=== PATIENT | female | born 1965 | race Two or more races ===

== ENCOUNTER 2020-01-08 10:28 | Outpatient (REF) | payer OTHER, SELFPAY ==
--- NOTE | 2020-01-08 | MM_ITS ---
EXAMINATION: MM SCREENING DIGITAL BREAST TOMOSYNTHESIS, BILATERAL CLINICAL INFORMATION: Screening. Asymptomatic. The lifetime risk of breast cancer based on the Tyrer-Cuzick Model is 15.9%. COMPARISON: Mammography: June 08, 2018 and studies dating back to July 29, 2011 TECHNIQUE: Digital breast tomosynthesis is performed in both the craniocaudal and mediolateral oblique views along with computer-aided detection (CAD). Synthesized 2D images are generated from the tomosynthesis. FINDINGS: There are scattered areas of fibroglandular density (ACR BI-RADS breast composition Category b). There are no significant masses, abnormal calcifications, or other abnormalities. MM/MM tomosynthesis screening BI IMPRESSION: There are no significant changes from prior study. ASSESSMENT: BI-RADS 1: Negative RECOMMENDATION: Routine annual mammography screening. This patient's information was entered into a reminder system with a target due date for their next mammogram.
== END 2020-01-08 10:29 | disposition home or self-care (01) ==
LOC: HO.MAMMO 10:28
PROVIDERS: Visit Provider Advanced Practice Midwife
DX: Z12.31 Encounter for screening mammogram for malignant neoplasm of breast (principal)
CPT/HCPCS: 77063; 77067

== ENCOUNTER 2020-02-14 10:03 | Outpatient (REF) | payer OTHER, SELFPAY ==
--- NOTE | 2020-02-14 10:11 | US_ITS ---
EXAMINATION: US VENOUS ULTRASOUND WITH DOPPLER LOWER EXTREMITY, LEFT CLINICAL INFORMATION: Left leg pain. COMPARISON: 08/09/2019 TECHNIQUE: Ultrasound of the deep veins is performed from the left hip to the calf with compression sonography and color and pulse Doppler assessment. Spectral analysis with color-flow imaging is performed. FINDINGS: There is normal venous compression and respiratory variation and augmented flow. The visualized common femoral vein, superficial femoral vein, profunda femoral vein, popliteal vein, and the trifurcation region shows no evidence of deep venous thrombosis. Within the leg, the visualized posterior tibial and peroneal veins are normal. A 5.1 x 1.8 x 3.1 cm Hollis's cyst has slightly increased in size compared to 08/09/2019. US/US venous duplex LE IMPRESSION: * No evidence of deep vein thrombosis in the left lower extremity. * Within the popliteal fossa, a Hollis's cyst has increased in size compared to 08/09/2019.
--- NOTE | 2020-02-14 10:11 | XR_ITS ---
EXAMINATION: XR KNEE, LEFT CLINICAL INFORMATION: Left knee pain COMPARISON: None TECHNIQUE: AP and lateral views of the left knee. FINDINGS: Alignment is normal and joint spaces are maintained. No fracture or subluxation. There appears to be a trace amount of fluid in the suprapatellar bursa of the knee joint. There is no evidence of a large joint effusion. Small osteophytes of the patella. No chondrocalcinosis or other soft tissue calcification at the knee. XR/XR knee LT 2V IMPRESSION: * No fracture or malalignment at the left knee. * Mild osteoarthritis of the patellofemoral joint.
== END 2020-02-14 10:04 | disposition home or self-care (01) ==
LOC: HO.XRAY 10:03
PROVIDERS: PCP Internal Medicine; Visit Provider Internal Medicine
DX: M25.562 Pain in left knee (principal); M79.605 Pain in left leg
CPT/HCPCS: 73560; 93971

== ENCOUNTER 2020-02-18 08:44 | Outpatient (REF) | payer OTHER, SELFPAY | END 2020-02-18 08:45 | disposition home or self-care (01) | LOC: HO.US 08:44 | PROVIDERS: PCP Internal Medicine; Visit Provider Internal Medicine | DX: M79.605 Pain in left leg (principal) ==

== ENCOUNTER → 2020-03-03 12:51 | Outpatient (BNVA) | payer OTHER, SELFPAY | PROVIDERS: PCP Internal Medicine; Visit Provider Orthopaedic Surgery | DX: M25.562 Pain in left knee (principal) | CPT/HCPCS: 20610; 99202; J1100 ==

== ENCOUNTER 2020-03-10 10:33 | Outpatient (REF) | payer OTHER, SELFPAY | END 2020-03-10 10:34 | disposition home or self-care (01) | LOC: HO.LAB 10:33 | PROVIDERS: PCP Internal Medicine; Visit Provider Internal Medicine | DX: Z20.822 Contact with and (suspected) exposure to COVID-19 (principal) | CPT/HCPCS: 36415; C9803; U0003 ==

== ENCOUNTER → 2020-03-25 10:05 | Outpatient (BNVA) | payer OTHER, SELFPAY | PROVIDERS: PCP Internal Medicine; Visit Provider Internal Medicine Cardiovascular Disease | DX: I47.1 Supraventricular tachycardia (principal); I10 Essential (primary) hypertension | CPT/HCPCS: 93005; 99212 ==

== ENCOUNTER → 2020-03-28 09:58 | Outpatient (BNVA) | payer OTHER, SELFPAY | PROVIDERS: Visit Provider Internal Medicine Gastroenterology | DX: K21.9 Gastro-esophageal reflux disease without esophagitis (principal) | CPT/HCPCS: Q3014 ==

== ENCOUNTER 2020-03-29 09:58 | Outpatient (REF) | payer OTHER, SELFPAY | END 2020-03-29 09:59 | disposition home or self-care (01) | LOC: HO.LAB 09:58 | PROVIDERS: PCP Internal Medicine; Visit Provider Internal Medicine | DX: Z20.822 Contact with and (suspected) exposure to COVID-19 (principal) | CPT/HCPCS: 36415; C9803; U0003 ==

== ENCOUNTER 2020-04-19 13:56 | Emergency (ER) | payer OTHER, SELFPAY ==
--- NOTE | 2020-04-19 | ECG_ITS ---
Test Reason : DIZZINESS Blood Pressure : / mmHG Vent. Rate : 089 BPM Atrial Rate : 089 BPM P-R Int : 144 ms QRS Dur : 090 ms QT Int : 382 ms P-R-T Axes : 068 010 022 degrees QTc Int : 464 ms Normal sinus rhythm Normal ECG When compared with ECG of 15-MAR-2019 08:25, No significant change was found Referred By: Generic ED Physician Electronically Signed By:JUN OCHOA MD
--- NOTE | ~2020-04-19 | CT_ITS ---
EXAMINATION: CT HEAD WITHOUT CONTRAST CLINICAL INFORMATION: Headaches, dizziness, severe hypertension COMPARISON: CT head from 03/15/2019 TECHNIQUE: Contiguous axial imaging was performed from the skull base to vertex without intravenous administration of contrast. This CT examination was performed using dose optimization techniques as appropriate, variously including the following: *Automated exposure control *Adjustment of mA and/or kV according to patient size (this includes techniques or standardized protocols for targeted exams where dose is matched to indication/reason for exam; i.e. extremities or head) *Use of iterative reconstruction technique DLP: 716.26 mGy-cm FINDINGS: There is no evidence of acute intracranial hemorrhage or territorial infarction. No abnormal mass effect or midline shift is seen. Godinez to white matter differentiation is well preserved. No extra-axial fluid collections are identified. The ventricles are normal in size. There is no abnormal attenuation within the brain parenchyma. The osseous structures and soft tissues are normal. Mild mucoperiosteal thickening of the right maxillary sinus. The mastoid air cells and visualized portions of the paranasal sinuses are well aerated. CT/CT cervical spine wo con IMPRESSION: No acute intracranial pathology. EXAMINATION: Noncontrast CT scan of the cervical spine. INDICATION: Neck pain COMPARISON: None. TECHNIQUE: Helical, multidetector axial images were obtained from the occiput to the upper thorax. Coronal and sagittal reformats of the cervical spine were provided for interpretation. DLP: 438.66 mGy-cm FINDINGS: No acute fractures or dislocations of the cervical spine are seen. Straightening of the normal cervical curvature which may be secondary to patient positioning versus muscle spasm. Mild multilevel degenerative changes with disc space narrowing, osteophyte formation, and facet arthropathy. Anatomic alignment and positioning of the vertebral bodies and posterior elements is noted. The atlantoaxial joint and craniovertebral articulations are normal without evidence of subluxation. There is no prevertebral soft tissue swelling. The thyroid gland and visualized portions of the lung apices and mediastinum are unremarkable. IMPRESSION: 1. No acute visible fracture or dislocation. 2. Straightening of the normal cervical curvature which may be secondary to patient positioning versus muscle spasm. 3. Mild multilevel degenerative changes.
[2020-04-19 14:42] VITALS: BP 189/109; PULSE 94; RESP 18; TEMP 36.7; O2SAT 99; BMI 36.9
[2020-04-19 15:59] VITALS: BP 169/85
[2020-04-19 16:02] LABS: MANUAL DIFF FLAG NO
[2020-04-19 16:05] LABS: Basophils Percent Auto 0.4 % (0-2); Eosinophils Absolute Auto 0.1 X10*3/uL (0.0-0.4); Eosinophils Percent Auto 1.6 % (0-4); Hematocrit 41.4 % (37-47); Hemoglobin 13.9 g/dl (12.0-16.0); Imm Gran Abs Auto 0.03 X10*3/uL (0.00-0.03); Imm Gran Pct Auto 0.4 % (0.0-0.4); Lymphocytes Absolute Auto 2.9 X10*3/uL (1.2-4.9); Lymphocytes Percent Auto 37.5 % (20-40); Mean Corpuscular HGB Conc 33.6 g/dl (31.0-35.0); Mean Corpuscular Hemoglobin 29.7 pg (27.0-33.0); Mean Corpuscular Volume 88.5 fL (80-98); Mean Platelet Volume 9.1 fL (9.4-12.3); Monocytes Absolute Auto 0.6 X10*3/uL (0.1-1.2); Monocytes Percent Auto 7.4 % (2-11); Neutrophils Percent Auto 52.7 % (45-73); Platelet Count 224 X10*3/uL (160-400); Red Blood Count 4.68 X10*6/uL (4.20-5.50); Red Cell Distribution Width 13.7 % (11.0-16.0); White Blood Count 7.7 X10*3/uL (4.8-10.8)
--- NOTE | 2020-04-19 16:17 | ED_ITS ---
HPI - General Adult General Chief complaint: Dizziness Stated complaint: HBP,Dizziness Time Seen by Provider: 04/19/20 15:44 Source: patient Mode of arrival: ambulatory Limitations: no limitations History of Present Illness HPI narrative: 54 y/o female with history of HTN on Toprol XL 50 mg daily, depression/anxiety, GERD, insomnia, hx SVT who presents to the ED with dizziness, nausea and right sided occipital pain that started this morning when she woke up. She noticed her BP has been elevated the last few days. It has been reading error in the morning and then 150/110's in the afternoon the last few days. She denies chest pain, vision changes, or diffuse headache. She states the pain in the back of her head/neck has been on/off for years and she correlates it when she has high BP. She thinks it is a swollen vein. MD complaint: high blood pressure Onset (ago): day(s) (2) Location: head and neck Radiation: non-radiation Severity: moderate Severity scale (1-10): 5 Quality: aching Pain Consistency: constant Relieving factors: rest Exacerbating factors: other (palpation) Associated symptoms: nausea/vomiting and other (dizziness) Treatments prior to arrival: none Related Data Home Medications Medication Instructions Recorded Confirmed cephalexin 500 mg capsule 500 mg PO Q6H 02/13/20 03/25/20 lidocaine 5 % topical ointment TOPICAL 02/13/20 03/25/20 lorazepam 1 mg tablet 1 mg PO QID PRN 02/13/20 03/25/20 meclizine 25 mg tablet mg PO 02/13/20 03/25/20 mometasone 0.1 % topical ointment TOPICAL 02/13/20 03/25/20 ondansetron HCl 8 mg tablet 8 mg PO BID 02/13/20 03/25/20 paroxetine HCl 20 mg tablet 20 mg PO DAILY 02/13/20 03/25/20 paroxetine HCl 40 mg tablet 40 mg PO DAILY 02/13/20 03/25/20 peg-electrolyte solution 420 gram ml PO 02/13/20 03/25/20 oral solution sucralfate 1 gram tablet 0 g PO 02/13/20 03/25/20 topiramate 100 mg tablet 100 mg PO DAILY 02/13/20 03/25/20 valacyclovir 500 mg tablet 500 mg PO BID 02/13/20 03/25/20 zolpidem 10 mg tablet 10 mg PO BEDTIME PRN 02/13/20 03/25/20 pantoprazole 40 mg tablet,delayed 40 mg PO DAILY 03/28/20 release Previous Rx's Medication Instructions Recorded metoprolol succinate 100 mg 100 mg PO DAILY #90 tab 03/21/20 tablet,extended release 24 hr cyclobenzaprine 10 mg PO TID PRN #10 tab 04/19/20 lidocaine [Lidoderm] 1 patch TOPICAL DAILY #15 ea 04/19/20 Allergies Allergy/AdvReac Type Severity Reaction Status Date / Time bee pollen [BEE STINGS] Allergy Intermediate RASH Verified 04/19/20 14:50 SWELLING PAIN FULL. adhesive tape [ADHESIVE TAPE] Allergy Mild RASH Verified 04/19/20 14:50 phentermine Allergy Unknown ANXIETY Verified 04/19/20 14:50 pneumococcal vaccine Allergy Unknown Unknown Verified 04/19/20 14:50 tramadol Allergy Unknown stomach Verified 04/19/20 14:50 upset oxycodone [OXYCODONE] AdvReac Intermediate VOMITING Verified 04/19/20 14:50 Review of Systems Review of Systems: Constitutional: No Fever, No Chills ENT/Mouth: No sore throat, No Rhinorrhea, No Swallowing Difficulty Eyes: No Eye Pain, No Swelling, No Redness, No vision changes Cardiovascular: No Chest Pain, No SOB, No Orthopnea, No Edema Respiratory: No Cough, No Sputum, No Wheezing, No dyspnea Gastrointestinal: + Nausea, No Vomiting, No Diarrhea, No abdominal Pain Genitourinary: No Dysuria, No Urinary Frequency, No Hematuria Musculoskeletal: No joint pain, + Myalgias Skin: No Skin Lesions, No rash Neuro: No Weakness, No Numbness, No Dizziness, + Headache Psych: + Anxiety/Panic, No Depression Heme/Lymph: No Bruising, No Lymphadenopathy Endocrine: No Polyuria, No Polydipsia PMFSH Past Medical History Attestation statement: The following information was validated with the patient. Medical History Depression with anxiety GERD (gastroesophageal reflux disease) HTN (hypertension) Insomnia Left knee pain Left leg pain Nausea Supraventricular tachycardia Surgical History History of cardiac radiofrequency ablation History of removal of cyst History of surgery History of total abdominal hysterectomy Family History Family History Father Brain cancer Mother Esophageal cancer Sister Breast cancer Paternal Uncle Diabetes Hypertension Social History Social History Alcohol intake: never Smoking Status: Never smoker Smoked in Last 30 Days: No Use of substances other than those prescribed or required for medical reasons: No Advance Directives: No Advance Directives Information Provided: Yes Physical Exam Vital Signs: Vital Signs: Last Vital Signs Temp 98.5 F 04/19/20 16:43 Pulse 79 04/19/20 16:43 Resp 18 04/19/20 16:43 BP 125/82 04/19/20 17:03 Pulse Ox 100 04/19/20 16:43 Body Mass Index 36.9 Appearance: Alert. Oriented X3. No acute distress. Eyes: Pupils equal, round and reactive to light. EOMI, no nystagmus ENT: Pharynx normal. Neck: Normal inspection. Neck supple. right posterior auricular area with tenderness and slight swelling along hair line, no skin changes, no palpable mas s CVS: Normal heart rate and rhythm. Pulses normal. Respiratory: No respiratory distress. Breath sounds normal. Abdomen: Soft and nontender. +BS x4 Skin: Skin warm and dry. Normal skin color. Normal skin turgor. No rashes. Extremities: No lower extremity edema. Neuro: Oriented X 3. No motor deficit. No sensory deficit. Course Course Course Narrative: 54 y/o female presenting with posterior headache, dizziness and nausea with poorly controlled BP. BP on arrival 189/198 with HR 94 --> re peat improved to 169/85 without intervention. Will hold off on additional antihypertensive meds at this time. Will proceed with CT head given her symptoms, suspicion for ICH/SAH is very low. Her neuro exam is non-focal. Reevaluation(s) Reevaluation #1: BP further improved to 125/[address] scan head normal. Neck showing ?muscle spasm which can explain her right sided neck/head pain. Troponin is negative. Reevaluation #2: Patient's BP is significantly improved without intervention. She feels much better without intervention. No dizziness. Will refer to Dr. Kim for possible med titration, she will monitor BP at home and bring him the results. Stable for discharge. Medical Decision Making Lab Data Result diagrams: 04/19/20 15:58 04/19/20 15:58 Labs: Lab Results 04/19/20 04/19/20 04/19/20 Range/Units 15:58 15:58 15:58 WBC 7.7 (4.8-10.8) X10*3/uL RBC 4.68 (4.20-5.50) X10*6/uL Hgb 13.9 (12.0-16.0) g/dl Hct 41.4 (37-47) % MCV 88.5 (80-98) fL MCH 29.7 (27.0-33.0) pg MCHC 33.6 (31.0-35.0) g/dl RDW 13.7 (11.0-16.0) % Plt Count 224 (160-400) X10*3/uL MPV 9.1 L (9.4-12.3) fL Immature Gran % (Auto) 0.4 (0.0-0.4) % Neut % (Auto) 52.7 (45-73) % Lymph % (Auto) 37.5 (20-40) % [place] % (Auto) 7.4 (2-11) % Eos % (Auto) 1.6 (0-4) % Baso % (Auto) 0.4 (0-2) % Lymph # (Auto) 2.9 (1.2-4.9) X10*3/uL [place] # (Auto) 0.6 (0.1-1.2) X10*3/uL Eos # (Auto) 0.1 (0.0-0.4) X10*3/uL Baso # (Auto) 0.0 (0.0-0.2) X10*3/uL Abs Immat Gran (auto) 0.03 (0.00-0.03) X10*3/uL Absolute Neuts (auto) 4.0 (2.0-8.3) X10*3/uL Absolute Nucleated RBC 0.000 (0.0-0.012) X10*3/uL Nucleated RBC % (auto) 0.0 (0.0-0.2) /100WBC Hold Blue Top SEE NOTE Sodium 140 (135-145) mmol/L Potassium 4.6 (3.3-5.1) mmol/L Chloride 103 (96-108) mmol/L Carbon Dioxide 27 (22-29) mmol/L Anion Gap 15 (12-20) BUN 14 (9-16) mg/dL Creatinine 0.80 (0.5-1.4) mg/dL Estim Creat Clear Calc 102.3 Estimated GFR > 60 Random Glucose 190 H (60-115) mg/dL Calcium 9.8 (8.4-10.2) mg/dL Troponin I High Sens (<3.5-17.0) ng/L 04/19/20 Range/Units 15:58 WBC (4.8-10.8) X10*3/uL RBC (4.20-5.50) X10*6/uL Hgb (12.0-16.0) g/dl Hct (37-47) % MCV (80-98) fL MCH (27.0-33.0) pg MCHC (31.0-35.0) g/dl RDW (11.0-16.0) % Plt Count (160-400) X10*3/uL MPV (9.4-12.3) fL Immature Gran % (Auto) (0.0-0.4) % Neut % (Auto) (45-73) % Lymph % (Auto) (20-40) % [place] % (Auto) (2-11) % Eos % (Auto) (0-4) % Baso % (Auto) (0-2) % Lymph # (Auto) (1.2-4.9) X10*3/uL [place] # (Auto) (0.1-1.2) X10*3/uL Eos # (Auto) (0.0-0.4) X10*3/uL Baso # (Auto) (0.0-0.2) X10*3/uL Abs Immat Gran (auto) (0.00-0.03) X10*3/uL Absolute Neuts (auto) (2.0-8.3) X10*3/uL Absolute Nucleated RBC (0.0-0.012) X10*3/uL Nucleated RBC % (auto) (0.0-0.2) /100WBC Hold Blue Top Sodium (135-145) mmol/L Potassium (3.3-5.1) mmol/L Chloride (96-108) mmol/L Carbon Dioxide (22-29) mmol/L Anion Gap (12-20) BUN (9-16) mg/dL Creatinine (0.5-1.4) mg/dL Estim Creat Clear Calc Estimated GFR Random Glucose (60-115) mg/dL Calcium (8.4-10.2) mg/dL Troponin I High Sens < 3.5 (<3.5-17.0) ng/L ECG Data Attestation: I personally reviewed and interpreted this ECG as follows: Interpretation: normal sinus rhythm, HR 89 bpm, [place] interval normal, normal QTc, No ST segment elevations Critical Care Time Critical Care Time Critical Care Time: No Discharge Plan Discharge Clinical Impression: HTN (hypertension) Qualifiers: Hypertension type: unspecified Qualified Code(s): I10 - Essential (primary) hypertension Cervical muscle strain Qualifiers: Encounter type: initial encounter Qualified Code(s): S16.1XXA - Strain of muscle, fascia and tendon at neck level, initial encounter Patient Disposition: Home, Self-Care Instructions: Cervical Strain (ED), Hypertension (ED) Additional Instructions: Your lab workup today was unremarkable. Your BP improved on it's own. Recommend monitoring your blood pressure at home every afternoon and keeping track for your doctor. Follow up with the Cardiology doctor in 2 weeks. Use heat to the painful area on your neck/head. Follow up with your doctor this week. If you have worsening headache, recurrent dizziness or any other concerning symptom come back to the ER for further evaluation. Prescriptions: New cyclobenzaprine 10 mg tablet 10 mg PO TID PRN (Reason: muscle spasm) Qty: 10 RF: 0 lidocaine [Lidoderm] 5 % adhesive patch,medicated 1 patch topical DAILY Qty: 15 RF: 0 No Action metoprolol succinate 100 mg tablet extended release 24 hr 100 mg PO DAILY Qty: 90 RF: 3 paroxetine HCl 40 mg tablet 40 mg PO DAILY RF: 0 paroxetine HCl 20 mg tablet 20 mg PO DAILY RF: 0 lorazepam 1 mg tablet 1 mg PO QID PRNRF: 0 lidocaine 5 % ointment topical RF: 0 zolpidem 10 mg tablet 10 mg PO BEDTIME PRNRF: 0 mometasone 0.1 % ointment topical RF: 0 valacyclovir 500 mg tablet 500 mg PO BID RF: 0 ondansetron HCl 8 mg tablet 8 mg PO BID RF: 0 cephalexin 500 mg capsule 500 mg PO Q6H RF: 0 topiramate 100 mg tablet 100 mg PO DAILY RF: 0 sucralfate 1 gram tablet 0 g PO RF: 0 peg-electrolyte soln 420 gram recon soln PO RF: 0 meclizine 25 mg tablet PO RF: 0 Referrals: Prasad Kim MD [Physician] - 2 weeks
[2020-04-19 16:32] LABS: Troponin-I High Sensitivity < 3.5 ng/L (<3.5-17.0)
[2020-04-19 16:43] VITALS: BP 125/82; PULSE 79; RESP 18; TEMP 36.9; O2SAT 100
[2020-04-19 17:01] LABS: Anion Gap 15 (12-20); Blood Urea Nitrogen 14 mg/dL (9-16); Calcium 9.8 mg/dL (8.4-10.2); Carbon Dioxide 27 mmol/L (22-29); Chloride 103 mmol/L (96-108); Creatinine Clr Calc Pharmacy 102.3; Estimated Glomerular Filt Rate > 60; Glucose Random 190 mg/dL (60-115); Potassium 4.6 mmol/L (3.3-5.1); Sodium 140 mmol/L (135-145)
[2020-04-19 17:03] VITALS: BP 125/82
== END 2020-04-19 17:49 | disposition home or self-care (01) ==
PROVIDERS: Emergency Provider Emergency Medicine Emergency Medical Services; PCP Internal Medicine
DX: I10 Essential (primary) hypertension (principal); S16.1XXA Strain of muscle, fascia and tendon at neck level, initial encounter; X58.XXXA Exposure to other specified factors, initial encounter; Y93.9 Activity, unspecified; Y92.9 Unspecified place or not applicable; Y99.9 Unspecified external cause status
CPT/HCPCS: 36415; 70450; 72125; 80048; 84484; 85025; 93005; 96374; 99284

== ENCOUNTER 2020-05-14 11:36 | Outpatient (REF) | payer OTHER, SELFPAY ==
[2020-05-14 12:52] LABS: Glucose Urine UA NEG (NEG); Leukocyte Esterase Urine NEG (NEG); Nitrite Urine NEG (NEG); Specific Gravity - Urine >= 1.030 (1.005-1.025); Urine Blood NEG (NEG); Urine Ketones NEG (NEG); Urine Protein NEG (NEG-TRACE)
[2020-05-14 12:55] LABS: Appearance Urine CLEAR; Color Urine YELLOW
== END 2020-05-14 11:37 | disposition home or self-care (01) ==
LOC: HO.LAB 11:36
PROVIDERS: PCP Internal Medicine; Visit Provider Internal Medicine
DX: R30.0 Dysuria (principal)
CPT/HCPCS: 81003

== ENCOUNTER 2020-07-03 10:37 | Outpatient (REF) | payer OTHER, SELFPAY ==
[2020-07-03 11:42] LABS: Basophils Percent Auto 0.5 % (0-2); Eosinophils Absolute Auto 0.2 X10*3/uL (0.0-0.4); Eosinophils Percent Auto 3.1 % (0-4); Hemoglobin 15.2 g/dl (12.0-16.0); Imm Gran Abs Auto 0.03 X10*3/uL (0.00-0.03); Imm Gran Pct Auto 0.4 % (0.0-0.4); Lymphocytes Absolute Auto 2.7 X10*3/uL (1.2-4.9); Lymphocytes Percent Auto 36.7 % (20-40); MANUAL DIFF FLAG NO; Mean Corpuscular Hemoglobin 29.6 pg (27.0-33.0); Mean Corpuscular Volume 89.7 fL (80-98); Mean Platelet Volume 9.1 fL (9.4-12.3); Monocytes Absolute Auto 0.5 X10*3/uL (0.1-1.2); Monocytes Percent Auto 6.3 % (2-11); Platelet Count 282 X10*3/uL (160-400); Red Blood Count 5.13 X10*6/uL (4.20-5.50); Red Cell Distribution Width 12.9 % (11.0-16.0); White Blood Count 7.5 X10*3/uL (4.8-10.8)
[2020-07-03 12:48] LABS: Alanine Aminotransferase 35 U/L (0-31); Albumin Level 4.8 g/dL (3.5-5.0); Alkaline Phosphatase 99 U/L (39-117); Anion Gap 15 (12-20); Aspartate Amino Transferase 25 U/L (5-31); Blood Urea Nitrogen 11 mg/dL (9-16); Calcium 10.2 mg/dL (8.4-10.2); Carbon Dioxide 25 mmol/L (22-29); Chloride 106 mmol/L (96-108); Cholesterol 254 mg/dL; Estimated Glomerular Filt Rate > 60; Glucose Fasting 157 mg/dL (60-99); HDL Cholesterol 48 mg/dL; LDL Cholesterol Calculated 152 mg/dl; Potassium 4.2 mmol/L (3.3-5.1); Sodium 142 mmol/L (135-145); Total Protein 7.3 g/dL (6.5-8.0); Triglycerides 274 mg/dL
[2020-07-03 15:54] LABS: Appearance Urine CLEAR; Color Urine YELLOW; Glucose Urine UA NEG (NEG); Leukocyte Esterase Urine NEG (NEG); Nitrite Urine NEG (NEG); Specific Gravity - Urine 1.025 (1.005-1.025); Urine Blood NEG (NEG); Urine Ketones NEG (NEG); Urine Protein NEG (NEG-TRACE)
== END 2020-07-03 10:38 | disposition home or self-care (01) ==
LOC: HO.LAB 10:37
PROVIDERS: PCP Internal Medicine; Visit Provider Internal Medicine
DX: R30.0 Dysuria (principal); E78.5 Hyperlipidemia, unspecified; I10 Essential (primary) hypertension; K21.9 Gastro-esophageal reflux disease without esophagitis
CPT/HCPCS: 36415; 80053; 80061; 81003; 85025

== ENCOUNTER 2020-08-05 18:24 | Emergency (ER) | payer OTHER, SELFPAY ==
[2020-08-05] VITALS (7 sets, daily range): BP systolic 145–192; BP diastolic 80–118; PULSE 81–91; RESP 14–18; TEMP 36.5–36.9; O2SAT 97–100; BMI 36.8
--- NOTE | 2020-08-05 | ECG_ITS ---
Test Reason : PALPATIONS Blood Pressure : / mmHG Vent. Rate : 090 BPM Atrial Rate : 090 BPM P-R Int : 148 ms QRS Dur : 104 ms QT Int : 408 ms P-R-T Axes : 068 019 036 degrees QTc Int : 499 ms Normal sinus rhythm normal ECG When compared with ECG of 19-APR-2020 16:36, No significant change was found Referred By: Generic ED Physician Electronically Signed By:Kota Reyes
--- NOTE | ~2020-08-05 | CT_ITS ---
EXAMINATION: CT HEAD WITHOUT CONTRAST CLINICAL INFORMATION: Headache. Hypertensive. COMPARISON: CT head 04/19/2020 TECHNIQUE: Contiguous axial imaging was performed from the skull base to vertex without intravenous administration of contrast. Coronal and sagittal reformatted images are performed at the CT scanner. [This CT examination was performed using dose optimization techniques as appropriate, variously including the following: *Automated exposure control *Adjustment of mA and/or kV according to patient size (this includes techniques or standardized protocols for targeted exams where dose is matched to indication/reason for exam; i.e. extremities or head) *Use of iterative reconstruction technique] DLP: 752.09+5.12 mGy-cm. FINDINGS: There is no evidence of acute intracranial hemorrhage or territorial infarction. No abnormal mass-effect or midline shift is seen. Godinez to white matter differentiation is well preserved. No extra-axial fluid collections are identified. The ventricles are normal in size. There is no abnormal attenuation within the brain parenchyma. There is no osseous abnormality. The mastoid air cells and visualized portions of the paranasal sinuses are well-aerated. CT/CT head/brain wo con IMPRESSION: No acute intracranial pathology.
--- NOTE | ~2020-08-05 | CT_ITS ---
EXAMINATION: CT ANGIOGRAM OF THE CHEST WITH AND WITHOUT CONTRAST (CT PULMONARY ANGIOGRAM FOR PE) CLINICAL INFORMATION: Reason for Exam hypertensive, pleuretic left chest pain, PE/dissection? COMPARISON: Chest x-ray 03/15/2019 TECHNIQUE: Prior to contrast administration, noncontrast localization images were obtained. Subsequently, multidetector volumetric imaging was performed from the thoracic inlet to below the diaphragms following the administration of 80 mL Omnipaque 350 intravenous contrast. No contrast reaction reported Sagittal, coronal, and MIP oblique sagittal reformatted images were obtained on the CT workstation, uploaded to PACS, and reviewed. This CT examination was performed using dose optimization techniques as appropriate, variously including the following: *Automated exposure control *Adjustment of mA and/or kV according to patient size (this includes techniques or standardized protocols for targeted exams where dose is matched to indication/reason for exam; i.e. extremities or head) *Use of iterative reconstruction technique Total exam dose-length product 1939 mGy-cm FINDINGS: QUALITY OF STUDY/CONTRAST BOLUS: Satisfactory. PULMONARY ARTERIES: No central or segmental pulmonary emboli. THORACIC AORTA: No aneurysm or dissection. LUNG: No focal consolidation, nodules or masses. PLEURA: No pleural effusion or pneumothorax. MEDIASTINUM: Normal heart size. No pericardial effusion. No hilar or mediastinal lymphadenopathy. No evidence of septal bowing or right heart strain. CHEST WALL/AXILLA: No axillary or internal mammary lymphadenopathy. OSSEOUS STRUCTURES: No acute or suspicious osseous abnormality. UPPER ABDOMEN: Unremarkable. No reflux of contrast into the hepatic veins to suggest elevated right heart pressures. CT/CT angio chest PE protocol IMPRESSION: Normal CT chest. No evidence of pulmonary embolism. VTE: negative
--- NOTE | ~2020-08-05 | CT_ITS ---
EXAMINATION: CT ABDOMEN AND PELVIS WITH CONTRAST CLINICAL INFORMATION: Left upper quadrant abdominal pain COMPARISON: 03/03/2016 TECHNIQUE: Multidetector volumetric imaging was performed from the superior aspect of the liver through the pubic symphysis following administration of 85 cc of Omnipaque intravenous contrast Sagittal and coronal reformatted images were obtained on the technologist workstation.. This CT examination was performed using dose optimization techniques as appropriate, variously including the following: *Automated exposure control *Adjustment of mA and/or kV according to patient size (this includes techniques or standardized protocols for targeted exams where dose is matched to indication/reason for exam; i.e. extremities or head) *Use of iterative reconstruction technique DLP: 336 mGy-cm FINDINGS: LUNG BASES: The visualized lung bases are unremarkable. LIVER, GALLBLADDER, AND BILIARY TREE: Mild diffuse fatty infiltration of the liver but no suspicious hepatic lesion or biliary ductal dilatation The gallbladder is unremarkable with no evidence of radiopaque gallstones, gallbladder wall thickening, or obvious pericholecystic inflammatory changes. PANCREAS: Atrophic but no focal abnormalities seen. SPLEEN: Unremarkable. ADRENAL GLANDS: Unremarkable. KIDNEYS AND URETERS: Low-attenuation cortical cysts incidentally seen within the bilateral kidneys similar to the prior study. Otherwise the kidneys are normal in size, shape, and attenuation. No hydronephrosis, hydroureter, or calculi seen. No perinephric stranding. BLADDER: Unremarkable. GASTROINTESTINAL TRACT: A few scattered colonic diverticula are seen but there is no evidence for diverticulitis. No colonic wall thickening or pericolonic inflammatory changes. Normal-appearing appendix. Visualized small bowel unremarkable ABDOMINAL WALL: No significant hernia is appreciated. LYMPHOVASCULAR STRUCTURES: No lymphadenopathy. The aorta is unremarkable. PELVIC VISCERA: Presumably surgically absent OSSEOUS STRUCTURES: Unremarkable. CT/CT abdomen pelvis w con IMPRESSION: Chronic appearing changes similar to the 2016 study. I do not appreciate any acute intra-abdominal process
[2020-08-05 19:11] LABS: MANUAL DIFF FLAG NO
[2020-08-05 19:14] LABS: Basophils Percent Auto 0.4 % (0-2); Eosinophils Absolute Auto 0.1 X10*3/uL (0.0-0.4); Eosinophils Percent Auto 1.1 % (0-4); Hematocrit 44.2 % (37-47); Hemoglobin 14.9 g/dl (12.0-16.0); Imm Gran Abs Auto 0.05 X10*3/uL (0.00-0.03); Imm Gran Pct Auto 0.5 % (0.0-0.4); Lymphocytes Absolute Auto 3.5 X10*3/uL (1.2-4.9); Lymphocytes Percent Auto 33.9 % (20-40); Mean Corpuscular HGB Conc 33.7 g/dl (31.0-35.0); Mean Corpuscular Hemoglobin 30.3 pg (27.0-33.0); Mean Corpuscular Volume 89.8 fL (80-98); Mean Platelet Volume 8.6 fL (9.4-12.3); Monocytes Absolute Auto 0.7 X10*3/uL (0.1-1.2); Monocytes Percent Auto 6.5 % (2-11); Neutrophils Absolute Auto 5.9 X10*3/uL (2.0-8.3); Neutrophils Percent Auto 57.6 % (45-73); Platelet Count 258 X10*3/uL (160-400); Red Blood Count 4.92 X10*6/uL (4.20-5.50); Red Cell Distribution Width 13.2 % (11.0-16.0); White Blood Count 10.2 X10*3/uL (4.8-10.8)
[2020-08-05 19:35] LABS: Anion Gap 18 (12-20); Blood Urea Nitrogen 9 mg/dL (9-16); Calcium 9.5 mg/dL (8.4-10.2); Carbon Dioxide 22 mmol/L (22-29); Chloride 103 mmol/L (96-108); Creatinine Clr Calc Pharmacy 103.5; Estimated Glomerular Filt Rate > 60; Glucose Random 221 mg/dL (60-115); Potassium 3.8 mmol/L (3.3-5.1); Sodium 139 mmol/L (135-145)
[2020-08-05 19:53] LABS: Troponin-I High Sensitivity < 3.5 ng/L (<3.5-17.0)
--- NOTE | 2020-08-05 20:09 | PC.NURSE ---
PT RESTING IN STRETCHER WITH C/O LEFT SIDED HEADACHE, ICE PACK PROVIDED. PT ON MONITOR WITH VS OBTAINED. PT DENIES N/V OR CHEST PAIN AT THIS TIME. PT ADMITS TO PHOTOSENSITIVITY. RESPIRATIONS EASY, N/L. PT AWAITING FOR MD'S EVAL. WILL CONTINUE TO MONITOR PT.
--- NOTE | 2020-08-05 20:40 | ED_ITS ---
HPI - General Adult General Chief complaint: General Medical Stated complaint: high bp Time Seen by Provider: 08/05/20 20:27 Source: patient Mode of arrival: ambulatory Limitations: no limitations History of Present Illness HPI narrative: Patient presents to ED for 3 days of left-sided headache, pleuretic left chest pain and epigastric pain with nausea. Paper states also her blood pressure has been high at home. Patient denies missing any dose of her blood pressure. Patient states it has happened before in the past. Patient denies any shortness of breath, fever, or chills. Patient has epigastric pain radiating to chest. Denies any chest pain radiating to the back or abdominal pain radiate to the back. Patient denies any lower abdominal pain, dysuria, hematuria, flank pain, fever, chills, swelling of lower extremities, coughing up blood, or calf pain. Related Data Home Medications Medication Instructions Recorded Confirmed lorazepam 1 mg tablet 1 mg PO QID PRN 02/13/20 07/01/20 meclizine 25 mg tablet mg PO 02/13/20 07/01/20 mometasone 0.1 % topical ointment TOPICAL 02/13/20 07/01/20 paroxetine HCl 20 mg tablet 20 mg PO DAILY 02/13/20 07/01/20 paroxetine HCl 40 mg tablet 40 mg PO DAILY 02/13/20 07/01/20 peg-electrolyte solution 420 gram ml PO 02/13/20 07/01/20 oral solution sucralfate 1 gram tablet 0 g PO 02/13/20 07/01/20 topiramate 100 mg tablet 100 mg PO DAILY 02/13/20 07/01/20 valacyclovir 500 mg tablet 500 mg PO BID 02/13/20 07/01/20 zolpidem 10 mg tablet 10 mg PO BEDTIME PRN 02/13/20 07/01/20 Previous Rx's Medication Instructions Recorded metoprolol succinate 100 mg 100 mg PO DAILY #90 tab 03/21/20 tablet,extended release 24 hr cyclobenzaprine 10 mg PO TID PRN #10 tab 04/19/20 bisacodyl 5 mg tablet,delayed 5 mg PO BEDTIME 90 Days #90 tab 07/01/20 release lidocaine 5 % topical ointment 1 appl TOPICAL DAILY 30 Days #30 g 07/01/20 ondansetron HCl 8 mg tablet 8 mg PO BID 90 Days #180 tab 07/01/20 pantoprazole 40 mg tablet,delayed 40 mg PO DAILY 90 Days #90 tab 07/01/20 release momnsrfxpi-hikqijqnpbuge-hhdw 1 cap PO Q6H PRN #20 cap 08/06/20 [Fioricet] naproxen 500 mg PO BID PRN #20 tab 08/06/20 Allergies Allergy/AdvReac Type Severity Reaction Status Date / Time bee pollen [BEE STINGS] Allergy Intermediate RASH Verified 08/05/20 18:28 SWELLING PAIN FULL. phentermine Allergy Intermediate ANXIETY Verified 08/05/20 18:28 pneumococcal vaccine Allergy Intermediate Swelling Verified 08/05/20 18:28 tramadol Allergy Intermediate stomach Verified 08/05/20 18:28 upset adhesive tape [ADHESIVE TAPE] Allergy Mild RASH Verified 08/05/20 18:28 oxycodone [OXYCODONE] AdvReac Intermediate VOMITING Verified 08/05/20 18:28 Review of Systems Review of Systems: Yes all other systems are reviewed and are negative Constitutional: Constitutional: Reports as per HPI, Reports no additional constitutional complaints and Reports headache(s) Eyes: Eyes: Reports as per HPI and Reports no additional eye complaints ENT: Reports system reviewed and no additional complaints, except as documented, Reports as per HPI and Reports headache(s) Cardiovascular: Cardiovascular: Reports as per HPI, Reports no additional cardiovascular complaints and Reports chest pain Respiratory: Respiratory: Reports as per HPI Gastrointestinal: Gastrointestinal: Reports as per HPI, Reports no additional gastrointestinal complaints and Reports abdominal pain (Epigastric abdominal pain) Musculoskeletal: Musculoskeletal: Reports no additional musculoskeletal complaints and Reports as per HPI Neurologic: Reports system reviewed and no additional complaints, except as documented, Reports as per HPI and Reports headache(s) Psychiatric: Psychiatric: Reports no additional psychiatric complaints and Reports as per HPI PMF Past Medical History Medical History (Updated 08/06/20 @ 02:10 by MARLENY Maldonado) Depression with anxiety GERD (gastroesophageal reflux disease) HTN (hypertension) Insomnia Left knee pain Left leg pain Mixed hyperlipidemia Nausea Supraventricular tachycardia Surgical History History of cardiac radiofrequency ablation History of removal of cyst History of surgery History of total abdominal hysterectomy Family History Family History Father Brain cancer Mother Esophageal cancer Sister Breast cancer Paternal Uncle Diabetes Hypertension Social History Social History Alcohol intake: never Advance Directives: No Advance Directives Information Provided: No Physical Exam Vital Signs: Vital Signs: Last Vital Signs Temp 98.4 F 08/05/20 20:47 Pulse 72 08/06/20 00:00 Resp 16 08/06/20 00:00 BP 158/80 H 08/06/20 00:00 Pulse Ox 97 08/05/20 23:12 Body Mass Index 36.8 Const: General: cooperative, healthy appearing, comfortable, no acute distress, well developed, alert, awake and Physically active Orientation/consciousness: patient oriented x3 HENMT: Head: Yes normal to inspection, Yes No palpable skull fracture present, Yes normocephalic, Yes atraumatic, No abrasion, No contusion and No cranial bruits Eyes: Other: Negative photophobia General: appearance normal, both eyes and all related structures Neck: Neck: Yes normal visual inspection, Yes full ROM, Yes no lymphadenopat hy, Yes no meningeal signs, Yes trachea midline, Yes supple and No tender Chest: Chest palpation & inspection: normal inspection of the chest and normal palpation of entire chest wall Resp: Effort & Inspection: normal respiratory effort and able to speak in complete sentences Auscultation: clear to auscultation bilaterally Cardio: Jugular venous distension: no JVD Heart sounds: S1 normal heart sound present and S2 normal heart sound present GI: Inspection: Yes normal to inspection and No abdominal wall ecchymosis Palpation (GI): Soft to palpation, not firm, Tenderness to palpation present (GI) in the epigastrum, no guarding and not rigid : General: No CVA tenderness and Yes no CVA tenderness Back/Spine/Pelvis: Back: no CVA tenderness, No CVA tenderness and No back tenderness Skin: General skin exam: no rashes or lesions noted and elasticity normal Neuro: Other: Negative pronator drift. Negative facial droop. Negative slurred speech. All extremities equal strength 5+. Vxpfrb-wr-[id number] and rapid hand movement intact. Negative Romberg General: patient oriented x3, gait normal, no meningeal signs and CN's II-XI intact bilaterally Cranial nerves: Yes CN's II-XII intact bilaterally Extrem: Other: Lower extremity is negative for any swelling, pitting edema, calf tenderness. Psych: Appearance: grossly normal, well kempt and not disheveled Course Course Course Narrative: Patient having chest pain, headache, epigastric pain with hypertension. Patient states history of blood clot in the leg. Due to this p atient will have a chest CT to check for PE and dissection. Patient also have a head CT due to elevated blood pressure. Patient also have abdominal CT to make sure there is no intra-abdominal processes. Patient also have EKG done. ESR will be added due to patient stating left-sided headache. Although no blurry vision eye pain. Reevaluation(s) Reevaluation #1: Negative for neuro deficits. CT negative for bleed or stroke after [address] negative for PE, pneumonia, or dissection. Abdominal CT scan came back negative for any acute intra-abdominal processes. Pressure improved with labetalol and morphine. Headache also resolved with Tylenol and Fioricet. Patient EKG negative for STEMI. Reevaluation #2: Patient's 2nd troponin negative. Patient is safe for discharge. Patient kidney function normal. Medical Decision Making MDM Narrative Medical decision making narrative: High blood pressure Lab Data Result diagrams: 08/05/20 19:06 08/05/20 19:06 Labs: Lab Results 08/05/20 08/05/20 08/05/20 Range/Units 19:06 19:06 19:06 WBC 10.2 (4.8-10.8) X10*3/uL RBC 4.92 (4.20-5.50) X10*6/uL Hgb 14.9 (12.0-16.0) g/dl Hct 44.2 (37-47) % MCV 89.8 (80-98) fL MCH 30.3 (27.0-33.0) pg MCHC 33.7 (31.0-35.0) g/dl RDW 13.2 (11.0-16.0) % Plt Count 258 (160-400) X10*3/uL MPV 8.6 L (9.4-12.3) fL Immature Gran % (Auto) 0.5 H (0.0-0.4) % Neut % (Auto) 57.6 (45-73) % Lymph % (Auto) 33.9 (20-40) % [place] % (Auto) 6.5 (2-11) % Eos % (Auto) 1.1 (0-4) % Baso % (Auto) 0.4 (0-2) % Lymph # (Auto) 3.5 (1.2-4.9) X10*3/uL [place] # (Auto) 0.7 (0.1-1.2) X10*3/uL Eos # (Auto) 0.1 (0.0-0.4) X10*3/uL Baso # (Auto) 0.0 (0.0-0.2) X10*3/uL Abs Immat Gran (auto) 0.05 H (0.00-0.03) X10*3/uL Absolute Neuts (auto) 5.9 (2.0-8.3) X10*3/uL Absolute Nucleated RBC 0.000 (0.0-0.012) X10*3/uL Nucleated RBC % (auto) 0.0 (0.0-0.2) /100WBC ESR (0-20) MM/HR Sodium 139 (135-145) mmol/L Potassium 3.8 (3.3-5.1) mmol/L Chloride 103 (96-108) mmol/L Carbon Dioxide 22 (22-29) mmol/L Anion Gap 18 (12-20) BUN 9 (9-16) mg/dL Creatinine 0.78 (0.5-1.4) mg/dL Estim Creat Clear Calc 103.5 Estimated GFR > 60 Random Glucose 221 H (60-115) mg/dL Calcium 9.5 D (8.4-10.2) mg/dL Troponin I High Sens < 3.5 (<3.5-17.0) ng/L 08/06/20 08/06/20 Range/Units 00:09 00:09 WBC (4.8-10.8) X10*3/uL RBC (4.20-5.50) X10*6/uL Hgb (12.0-16.0) g/dl Hct (37-47) % MCV (80-98) fL MCH (27.0-33.0) pg MCHC (31.0-35.0) g/dl RDW (11.0-16.0) % Plt Count (160-400) X10*3/uL MPV (9.4-12.3) fL Immature Gran % (Auto) (0.0-0.4) % Neut % (Auto) (45-73) % Lymph % (Auto) (20-40) % [place] % (Auto) (2-11) % Eos % (Auto) (0-4) % Baso % (Auto) (0-2) % Lymph # (Auto) (1.2-4.9) X10*3/uL [place] # (Auto) (0.1-1.2) X10*3/uL Eos # (Auto) (0.0-0.4) X10*3/uL Baso # (Auto) (0.0-0.2) X10*3/uL Abs Immat Gran (auto) (0.00-0.03) X10*3/uL Absolute Neuts (auto) (2.0-8.3) X10*3/uL Absolute Nucleated RBC (0.0-0.012) X10*3/uL Nucleated RBC % (auto) (0.0-0.2) /100WBC ESR 2 (0-20) MM/HR Sodium (135-145) mmol/L Potassium (3.3-5.1) mmol/L Chloride (96-108) mmol/L Carbon Dioxide (22-29) mmol/L Anion Gap (12-20) BUN (9-16) mg/dL Creatinine (0.5-1.4) mg/dL Estim Creat Clear Calc Estimated GFR Random Glucose (60-115) mg/dL Calcium (8.4-10.2) mg/dL Troponin I High Sens 3.7 (<3.5-17.0) ng/L ECG Data Interpretation: Normal sinus rhythm. Ventricular rate 90. Pr interval 148. QRS duration 104. QTC 499. Negative STEMI Discharge Plan Discharge Clinical Impression: Hypertension, Headache, Abdominal pain, Chest pain Patient Disposition: Home, Self-Care Instructions: Chest Pain (ED), Chronic Hypertension (ED), Abdominal Pain (ED) Additional Instructions: Regrese al servicio de urgencias inmediatamente si empeora el dolor de sean, dolor en el pecho, dolor abdominal, dificultad para respirar, hinchaz?n de las extremidades inferiores, dolor en la pantorrilla, tos con da, fiebre, escalofr?os, desmayo, dificultad para hablar, ca?da facial, p?rdida de visi?n, par?lisis de extremidades, o cualquier otro s?ntoma relacionado. Prescriptions: New azpfgxgcxj-vvpgkehazegoa-aelz [Fioricet] 50-300-40 mg capsule 1 cap PO Q6H PRN (Reason: headache) Qty: 20 RF: 0 naproxen 500 mg tablet 500 mg PO BID PRN (Reason: pain) Qty: 20 RF: 0 No Action metoprolol succinate 100 mg tablet extended release 24 hr 100 mg PO DAILY Qty: 90 RF: 3 cyclobenzaprine 10 mg tablet 10 mg PO TID PRN (Reason: muscle spasm) Qty: 10 RF: 0 ondansetron HCl 8 mg tablet 8 mg PO BID 90 Days Qty: 180 RF: 1 bisacodyl 5 mg tablet,delayed release (DR/EC) 5 mg PO BEDTIME 90 Days Qty: 90 RF: 1 lidocaine 5 % ointment 1 appl topical DAILY 30 Days Qty: 30 RF: 6 pantoprazole 40 mg tablet,delayed release (DR/EC) 40 mg PO DAILY 90 Days Qty: 90 RF: 3 paroxetine HCl 40 mg tablet 40 mg PO DAILY RF: 0 paroxetine HCl 20 mg tablet 20 mg PO DAILY RF: 0 lorazepam 1 mg tablet 1 mg PO QID PRNRF: 0 zolpidem 10 mg tablet 10 mg PO BEDTIME PRNRF: 0 mometasone 0.1 % ointment topical RF: 0 valacyclovir 500 mg tablet 500 mg PO BID RF: 0 topiramate 100 mg tablet 100 mg PO DAILY RF: 0 sucralfate 1 gram tablet 0 g PO RF: 0 peg-electrolyte soln 420 gram recon soln PO RF: 0 meclizine 25 mg tablet PO RF: 0 Referrals: Kayy Escobar MD [Primary Care Provider] - 2 days (Hypertension. Head CT normal. Chest CT negative for PE, dissection, or blood clot. Abdominal CT came back normal.) Interventions: ED Discharge Assessment Last Done: 08/06/20 02:53 Discharge Date/Time: 08/06/20 02:54 Print Language: Kenyan
[2020-08-05] MEDS: Acetaminophen 325 MG TABLET 650 MG PO (21:19)
[2020-08-05] MEDS: Labetalol HCL 100 MG/20 ML VIAL 10 MG IVPUSH (21:19)
[2020-08-05] MEDS: Morphine Sulfate 4 MG/ML CARTRIDGE IVPUSH (21:21)
--- NOTE | 2020-08-05 21:45 | PC.NURSE ---
IV PLACED TO RIGHT WRIST, PT IS A VERY DIFFICULT STICK. PT MEDICATED PER EMAR FOR HEAD PT. MARLENY JARVIS ORDERED TO HOLD LABETALOL FOR B/P 165/80. PT UP TO RESTROOM AND UNSTEADY ON FEET. PT RETURNS TO BED AND USES BEDPAN FOR URINE SAMPLE. PT TEARFUL IN PAIN. PT ON MONITOR AND AWAITING FOR CT.
--- NOTE | 2020-08-05 21:52 | PC.NURSE ---
PT TO CT IN STRETCHER IN NAD.
[2020-08-05] MEDS: iohexoL 350 MG/ML 100 ML INFUS..BTL IV (22:09)
--- NOTE | 2020-08-05 22:10 | PC.NURSE ---
PT RETURNS FROM CT IN STRETCHER IN NAD.
[2020-08-05] MEDS: Magnesium Hydrox/Alum Hydrox 30 ML ORAL.SUSP PO (23:06)
[2020-08-05] MEDS: Famotidine/PF 20 MG/2 ML VIAL IVPUSH (23:06)
[2020-08-05] MEDS: Butalb/Acetamin/Caff 50/325/40 TABLET 1 TAB PO (23:06)
[2020-08-05] MEDS: Lidocaine HCl Viscous 2 % 15 ML SOLUTION MUCOUS MEM (23:06)
[2020-08-05] MEDS: PHENobarb/Hyoscy/Atropine/Scop 10 ML ELIXIR PO (23:07)
[2020-08-06] VITALS: BP 158/80; PULSE 72; RESP 16
[2020-08-06 00:53] LABS: Troponin-I High Sensitivity 3.7 ng/L (<3.5-17.0)
[2020-08-06 01:04] LABS: Erythrocyte Sedimentation Rate 2 MM/HR (0-20)
--- NOTE | 2020-08-06 01:43 | PC.NURSE ---
PT IN ROOM WITH SENIOR MECHANICAL ENGINEER FOR DISPO. PT WAKES FROM SLEEPING, PT IN NAD AND AWAITING FOR DISPO. WILL CONTINUE TO MONITOR PT.
== END 2020-08-06 02:54 | disposition home or self-care (01) ==
PROVIDERS: Physician Assistant; Emergency Provider Emergency Medicine Emergency Medical Services; PCP Internal Medicine
DX: R51.9 Headache, unspecified (principal); M54.5 Low back pain; I10 Essential (primary) hypertension; R10.9 Unspecified abdominal pain; R07.9 Chest pain, unspecified; Z79.899 Other long term (current) drug therapy
CPT/HCPCS: 36415; 70450; 71275; 74177; 80048; 84484; 85025; 85652; 93005; 96365; 96375; 99284; J2270; Q9967

== ENCOUNTER → 2020-11-14 08:56 | Outpatient (BNVA) | payer OTHER, SELFPAY | PROVIDERS: PCP Internal Medicine; Visit Provider Internal Medicine Gastroenterology | CPT/HCPCS: Q3014 ==

== ENCOUNTER → 2020-12-01 13:33 | Outpatient (BNVA) | payer OTHER, SELFPAY | PROVIDERS: Visit Provider Advanced Practice Midwife ==

== ENCOUNTER 2021-01-02 09:44 | Outpatient (REF) | payer OTHER, SELFPAY ==
[2021-01-02 10:03] LABS: MANUAL DIFF FLAG NO
[2021-01-02 10:25] LABS: Basophils Percent Auto 0.6 % (0-2); Eosinophils Absolute Auto 0.3 X10*3/uL (0.0-0.4); Eosinophils Percent Auto 4.3 % (0-4); Hematocrit 42.9 % (37-47); Hemoglobin 14.5 g/dl (12.0-16.0); Imm Gran Abs Auto 0.03 X10*3/uL (0.00-0.03); Imm Gran Pct Auto 0.4 % (0.0-0.4); Lymphocytes Absolute Auto 1.8 X10*3/uL (1.2-4.9); Mean Corpuscular HGB Conc 33.8 g/dl (31.0-35.0); Mean Corpuscular Hemoglobin 30.1 pg (27.0-33.0); Mean Platelet Volume 9.2 fL (9.4-12.3); Monocytes Absolute Auto 0.7 X10*3/uL (0.1-1.2); Monocytes Percent Auto 9.4 % (2-11); Neutrophils Absolute Auto 4.3 X10*3/uL (2.0-8.3); Neutrophils Percent Auto 60.3 % (45-73); Platelet Count 274 X10*3/uL (160-400); Red Blood Count 4.82 X10*6/uL (4.20-5.50); Red Cell Distribution Width 13.3 % (11.0-16.0); White Blood Count 7.2 X10*3/uL (4.8-10.8)
[2021-01-02 10:45] LABS: Alanine Aminotransferase 44 U/L (0-31); Albumin Level 4.6 g/dL (3.5-5.0); Alkaline Phosphatase 82 U/L (39-117); Anion Gap 17 (12-20); Aspartate Amino Transferase 30 U/L (5-31); Bilirubin Total 1.4 mg/dL (0.0-1.0); Blood Urea Nitrogen 10 mg/dL (9-16); Calcium 9.7 mg/dL (8.4-10.2); Carbon Dioxide 24 mmol/L (22-29); Chloride 103 mmol/L (96-108); Cholesterol 240 mg/dL; Estimated Glomerular Filt Rate > 60; Glucose Fasting 201 mg/dL (60-99); HDL Cholesterol 48 mg/dL; LDL Cholesterol Calculated 129 mg/dl; Potassium 3.8 mmol/L (3.3-5.1); Sodium 140 mmol/L (135-145); Total Protein 7.3 g/dL (6.5-8.0); Triglycerides 315 mg/dL
[2021-01-07 15:36] LABS: Vitamin D 25-OH, D2 <4 ng/mL; Vitamin D 25-OH, D3 27 ng/mL; Vitamin D 25-OH, Total 27 ng/mL (30-100)
== END 2021-01-02 09:45 | disposition home or self-care (01) ==
LOC: HO.LAB 09:44
PROVIDERS: PCP Internal Medicine; Visit Provider Internal Medicine
DX: E78.5 Hyperlipidemia, unspecified (principal); I10 Essential (primary) hypertension; E55.9 Vitamin D deficiency, unspecified; D64.9 Anemia, unspecified
CPT/HCPCS: 36415; 80053; 80061; 82306; 85025

== ENCOUNTER 2021-01-23 09:06 | Emergency (ER) | payer OTHER, SELFPAY ==
--- NOTE | ~2021-01-23 | XR_ITS ---
EXAMINATION: XR CHEST CLINICAL INFORMATION: Shortness of breath COMPARISON: March 15, 2019 TECHNIQUE: AP portable view of the chest was obtained. FINDINGS: There is no evidence of acute parenchymal disease, pneumothorax, or pleural effusion. Heart normal size. No evidence of pulmonary edema. There is elevation of the right hemidiaphragm. XR/XR chest 1V IMPRESSION: No acute disease.
[2021-01-23 09:10] VITALS: BP 152/101; PULSE 95; RESP 18; TEMP 37.1; O2SAT 98; BMI 36.9
--- NOTE | 2021-01-23 09:15 | ECG_ITS ---
Test Reason : dizziness Blood Pressure : / mmHG Vent. Rate : 088 BPM Atrial Rate : 088 BPM P-R Int : 140 ms QRS Dur : 088 ms QT Int : 384 ms P-R-T Axes : 054 004 025 degrees QTc Int : 464 ms Normal sinus rhythm Normal ECG When compared with ECG of 05-AUG-2020 20:43, No significant change was found Referred By: Generic ED Physician Electronically Signed By:DAVE WAN MD
[2021-01-23 11:25] VITALS: BP 143/92; PULSE 88; RESP 16; O2SAT 98
--- NOTE | 2021-01-23 12:41 | ED_ITS ---
HPI - Dizziness General Chief Complaint: Dizziness Stated Complaint: dizziness, flank pain, sob Time Seen by Provider: 01/23/21 12:39 History of Present Illness HPI Narrative: patient is 55 years old presents today with having generalized malaise chest pain radiating to the back. The pain is sharp in nature. There is no nausea no vomiting. No focal weakness. Patient from home. Patient feels lightheaded at times. Denies any new leg swelling. No history of blood clots in the past. History of depression. History of SVT status post ablation in the past. Never had a heart attack. No history diabetes, hypertension, high cholesterol. No history of blood clots in the past. Not on control. Patient denies any history of MN in the past. No vomiting. The pain in the front of her chest is constant. No history of sudden in the family. Related Data Home Medications Medication Instructions Recorded Confirmed lorazepam 1 mg tablet 1 mg PO QID PRN 02/13/20 12/31/20 meclizine 25 mg tablet mg PO 02/13/20 12/31/20 mometasone 0.1 % topical ointment TOPICAL 02/13/20 12/31/20 paroxetine HCl 20 mg tablet 20 mg PO DAILY 02/13/20 12/31/20 paroxetine HCl 40 mg tablet 40 mg PO DAILY 02/13/20 12/31/20 peg-electrolyte solution 420 gram ml PO 02/13/20 12/31/20 oral solution sucralfate 1 gram tablet 0 g PO 02/13/20 12/31/20 topiramate 100 mg tablet 100 mg PO DAILY 02/13/20 12/31/20 zolpidem 10 mg tablet 10 mg PO BEDTIME PRN 02/13/20 12/31/20 Previous Rx's Medication Instructions Recorded metoprolol succinate 100 mg 100 mg PO DAILY #90 tab 03/21/20 tablet,extended release 24 hr cyclobenzaprine 10 mg tablet 10 mg PO TID PRN #10 tab 04/19/20 lidocaine 5 % topical ointment 1 appl TOPICAL DAILY 30 Days #30 g 07/01/20 ondansetron HCl 8 mg tablet 8 mg PO BID 90 Days #180 tab 07/01/20 nqxrduzukb-ajaxqclqxgxpn-mdvwmdbs 1 cap PO Q6H PRN #20 cap 06/02/21 50 mg-300 mg-40 mg capsule (Fioricet) polyethylene glycol 3350 17 17 g PO DAILY 30 Days #510 g 09/23/20 gram/dose oral powder (Miralax) calcium polycarbophil 625 mg 625 mg PO QID PRN #120 tab 09/24/20 tablet (Fiber-Lax) pantoprazole 40 mg tablet,delayed 40 mg PO BID 90 Days #180 tab 11/14/20 release valacyclovir 500 mg tablet 500 mg PO BID #30 tab 12/01/20 (Valtrex) bisacodyl 5 mg tablet,delayed 5 mg PO BEDTIME 90 Days #90 tab 12/11/20 release Allergies Allergy/AdvReac Type Severity Reaction Status Date / Time bee pollen [BEE STINGS] Allergy Intermediate RASH Verified 01/23/21 09:10 SWELLING PAIN FULL. phentermine Allergy Intermediate ANXIETY Verified 01/23/21 09:10 pneumococcal vaccine Allergy Intermediate Swelling Verified 01/23/21 09:10 tramadol Allergy Intermediate stomach Verified 01/23/21 09:10 upset adhesive tape [ADHESIVE TAPE] Allergy Mild RASH Verified 01/23/21 09:10 oxycodone [OXYCODONE] AdvReac Intermediate VOMITING Verified 01/23/21 09:10 Review of Systems Review of Systems: No fever no chills no cough no congestion or upper respiratory symp Yes all other systems are reviewed and are negative FOR[facility]LY [facility] Past Medical History Medical History Depression with anxiety GERD (gastroesophageal reflux disease) Herpes simplex type 2 infection Impaired glucose tolerance Insomnia Left knee pain Left leg pain Mild recurrent major depression Mixed hyperlipidemia Nausea Supraventricular tachycardia Surgical History History of cardiac radiofrequency ablation History of esophagogastroduodenoscopy (EGD) History of removal of cyst History of surgery History of total abdominal hysterectomy Hx of colonoscopy Family History Family History Father Brain cancer Mother Esophageal cancer Sister Breast cancer Paternal Uncle Diabetes Hypertension Social History Social History Household Members: Children Housing: Apartment Alcohol intake: never Patient Tobacco Use Status: Never used Tobacco e-Cigarette/Vaping Use: Never Used Second Hand Smoke Exposure: No Advance Directives: No Advance Directives Information Provided: Yes service: No Current occupational status: unemployed Physical Exam Vital Signs: Vital Signs: Last Vital Signs Temp 98.7 F 01/23/21 09:10 Pulse 88 01/23/21 11:25 Resp 16 01/23/21 11:25 BP 143/92 H 01/23/21 11:25 Pulse Ox 98 01/23/21 11:25 Body Mass Index 36.9 Appearance: Alert. Oriented X3. No acute distress. Eyes: Pupils equal, round and reactive to light. ENT: Pharynx normal. Neck: Normal inspection. Neck supple. No lymph nodes noted. No crepitus CVS: Normal heart rate and rhythm. Pulses normal. Normal S1 and S2 Respiratory: No respiratory distress. Breath sounds normal. No Wheezing. No rales Abdomen: Soft and nontender. No rigidity. No distention. good BS x4 Skin: Skin warm and dry. Normal skin color. Normal skin turgor. Extremities: No lower extremity edema. Neurovascular intact to all extremities. No Lacerations. No Rash Neuro: Oriented X 3. No motor deficit. No sensory deficit. Moving all extermities. No slurred speech MDM - Dizziness MDM Narrative Medical decision making narrative: Patient well appearing. D-dimer is negative there is no evidence of PE. Chest x-ray showed no evidence of pneumonia pneumothorax. Patient's cardiac enzyme was negative. EKG showed a sinus pattern heart rate is 80 p.o. cares QT within normal limits is no acute ST segment elevation. Patient's chest pain atypical for ACS. No significant cardiac risk factors. Patient is 55 years old. EKG normal troponin negative. Heart score is less than 3. Patient will be discharged home. Close follow-up on outpatient basis. Medical Records Attestation: I reviewed the patient's medical records. Lab Data Attestation: I reviewed the patient's lab results. Result diagrams: 01/23/21 13:26 01/23/21 13:26 Labs: Lab Results 01/23/21 01/23/21 01/23/21 Range/Units 13:26 13:26 13:26 WBC 10.1 (4.8-10.8) X10*3/uL RBC 5.04 (4.20-5.50) X10*6/uL Hgb 15.2 (12.0-16.0) g/dl Hct 45.5 (37.0-47.0) % MCV 90.3 (80.0-98.0) fL MCH 30.2 (27.0-33.0) pg MCHC 33.4 (31.0-35.0) g/dl RDW 13.0 (11.0-16.0) % Plt Count 240 (160-400) X10*3/uL MPV 8.9 L (9.4-12.3) fL Immature Gran % (Auto) 0.6 H (0.0-0.4) % Neut % (Auto) 57.9 (45-73) % Lymph % (Auto) 30.7 (20-40) % [place] % (Auto) 6.0 (2-11) % Eos % (Auto) 4.4 H (0-4) % Baso % (Auto) 0.4 (0-2) % Lymph # (Auto) 3.1 (1.2-4.9) X10*3/uL [place] # (Auto) 0.6 (0.1-1.2) X10*3/uL Eos # (Auto) 0.4 (0.0-0.4) X10*3/uL Baso # (Auto) 0.0 (0.0-0.2) X10*3/uL Abs Immat Gran (auto) 0.06 H (0.00-0.03) X10*3/uL Absolute Neuts (auto) 5.9 (2.0-8.3) x10*3/uL Absolute Nucleated RBC 0.000 (0.0-0.012) X10*3/uL Nucleated RBC % (auto) 0.0 (0.0-0.2) /100WBC D-Dimer High Sensitivty 220 NG/ML Sodium 139 (135-145) mmol/L Potassium 4.2 (3.3-5.1) mmol/L Chloride 104 (96-108) mmol/L Carbon Dioxide 25 (22-29) mmol/L Anion Gap 14 (12-20) BUN 9 (9-16) mg/dL Creatinine 0.73 (0.5-1.4) mg/dL Estim Creat Clear Calc 110.9 Estimated GFR > 60 Random Glucose 122 H (60-115) mg/dL Calcium 10.1 (8.4-10.2) mg/dL Total Bilirubin 0.7 (0.0-1.0) mg/dL Direct Bilirubin 0.2 (0.0-0.5) mg/dL AST 26 (5-31) U/L ALT 35 H (0-31) U/L Alkaline Phosphatase 87 (39-117) U/L Troponin I High Sens (<3.5-17.0) ng/L B-Natriuretic Peptide (<100) pg/mL Total Protein 7.3 (6.5-8.0) g/dL Albumin 4.4 (3.5-5.0) g/dL Lipase 23 (8-78) U/L Urine Color Urine Appearance Urine pH (5.0-8.0) Ur Specific [place] (1.005-1.025) Urine Protein (NEG-TRACE) MG/DL Urine Glucose (UA) (NEG) MG/DL Urine Ketones (NEG) MG/DL Urine Blood (NEG) Urine Nitrite (NEG) Ur Leukocyte Esterase (NEG) Urine RBC (0) /HPF Urine WBC (0-4) /HPF Ur Squamous Epith Cells /LPF Urine Bacteria /LPF 01/23/21 01/23/21 01/23/21 Range/Units 13:26 13:26 13:32 WBC (4.8-10.8) X10*3/uL RBC (4.20-5.50) X10*6/uL Hgb (12.0-16.0) g/dl Hct (37.0-47.0) % MCV (80.0-98.0) fL MCH (27.0-33.0) pg MCHC (31.0-35.0) g/dl RDW (11.0-16.0) % Plt Count (160-400) X10*3/uL MPV (9.4-12.3) fL Immature Gran % (Auto) (0.0-0.4) % Neut % (Auto) (45-73) % Lymph % (Auto) (20-40) % [place] % (Auto) (2-11) % Eos % (Auto) (0-4) % Baso % (Auto) (0-2) % Lymph # (Auto) (1.2-4.9) X10*3/uL [place] # (Auto) (0.1-1.2) X10*3/uL Eos # (Auto) (0.0-0.4) X10*3/uL Baso # (Auto) (0.0-0.2) X10*3/uL Abs Immat Gran (auto) (0.00-0.03) X10*3/uL Absolute Neuts (auto) (2.0-8.3) x10*3/uL Absolute Nucleated RBC (0.0-0.012) X10*3/uL Nucleated RBC % (auto) (0.0-0.2) /100WBC D-Dimer High Sensitivty NG/ML Sodium (135-145) mmol/L Potassium (3.3-5.1) mmol/L Chloride (96-108) mmol/L Carbon Dioxide (22-29) mmol/L Anion Gap (12-20) BUN (9-16) mg/dL Creatinine (0.5-1.4) mg/dL Estim Creat Clear Calc Estimated GFR Random Glucose (60-115) mg/dL Calcium (8.4-10.2) mg/dL Total Bilirubin (0.0-1.0) mg/dL Direct Bilirubin (0.0-0.5) mg/dL AST (5-31) U/L ALT (0-31) U/L Alkaline Phosphatase (39-117) U/L Troponin I High Sens < 3.5 (<3.5-17.0) ng/L B-Natriuretic Peptide < 10 (<100) pg/mL Total Protein (6.5-8.0) g/dL Albumin (3.5-5.0) g/dL Lipase (8-78) U/L Urine Color YELLOW Urine Appearance HAZY Urine pH 5.5 (5.0-8.0) Ur Specific [place] 1.025 (1.005-1.025) Urine Protein NEG (NEG-TRACE) MG/DL Urine Glucose (UA) NEG (NEG) MG/DL Urine Ketones NEG (NEG) MG/DL Urine Blood NEG (NEG) Urine Nitrite NEG (NEG) Ur Leukocyte Esterase NEG (NEG) Urine RBC 0 (0) /HPF Urine WBC 0-2 (0-4) /HPF Ur Squamous Epith Cells 1+ /LPF Urine Bacteria 2+ /LPF Discharge Plan Discharge Clinical Impression: Chest pain Patient Disposition: Home, Self-Care Instructions: Chest Pain (ED) Prescriptions: No Action metoprolol succinate 100 mg tablet extended release 24 hr 100 mg PO DAILY Qty: 90 RF: 3 polyethylene glycol 3350 [Miralax] 17 gram/dose powder 17 g PO DAILY 30 Days Qty: 510 RF: 1 calcium polycarbophil [Fiber-Lax] 625 mg tablet 625 mg PO QID PRN (Reason: constipation) Qty: 120 RF: 6 bisacodyl 5 mg tablet,delayed release (DR/EC) 5 mg PO BEDTIME 90 Days Qty: 90 RF: 1 cyclobenzaprine 10 mg tablet 10 mg PO TID PRN (Reason: muscle spasm) Qty: 10 RF: 0 ahudjjtspc-nwuthifwrwgfp-uirk [Fioricet] 50-300-40 mg capsule 1 cap PO Q6H PRN (Reason: headache) Qty: 20 RF: 0 ondansetron HCl 8 mg tablet 8 mg PO BID 90 Days Qty: 180 RF: 1 lidocaine 5 % ointment 1 appl topical DAILY 30 Days Qty: 30 RF: 6 paroxetine HCl 40 mg tablet 40 mg PO DAILY RF: 0 paroxetine HCl 20 mg tablet 20 mg PO DAILY RF: 0 lorazepam 1 mg tablet 1 mg PO QID PRNRF: 0 zolpidem 10 mg tablet 10 mg PO BEDTIME PRNRF: 0 mometasone 0.1 % ointment topical RF: 0 topiramate 100 mg tablet 100 mg PO DAILY RF: 0 sucralfate 1 gram tablet 0 g PO RF: 0 peg-electrolyte soln 420 gram recon soln PO RF: 0 meclizine 25 mg tablet PO RF: 0 pantoprazole 40 mg tablet,delayed release (DR/EC) 40 mg PO BID 90 Days Qty: 180 RF: 3 valacyclovir [Valtrex] 500 mg tablet 500 mg PO BID Qty: 30 RF: 1 Referrals: Kayy Escobar MD [Primary Care Provider] - 2 days ( Small risk of cardiac events still exists. Worsening condition return to the emergency department. Please closely follow-up with your doctor on an outpatient basis.) Print Language: [place]
[2021-01-23 13:33] LABS: MANUAL DIFF FLAG NO
[2021-01-23 13:35] LABS: Basophils Percent Auto 0.4 % (0-2); Eosinophils Absolute Auto 0.4 X10*3/uL (0.0-0.4); Eosinophils Percent Auto 4.4 % (0-4); Hematocrit 45.5 % (37.0-47.0); Hemoglobin 15.2 g/dl (12.0-16.0); Imm Gran Abs Auto 0.06 X10*3/uL (0.00-0.03); Imm Gran Pct Auto 0.6 % (0.0-0.4); Lymphocytes Absolute Auto 3.1 X10*3/uL (1.2-4.9); Lymphocytes Percent Auto 30.7 % (20-40); Mean Corpuscular HGB Conc 33.4 g/dl (31.0-35.0); Mean Corpuscular Hemoglobin 30.2 pg (27.0-33.0); Mean Corpuscular Volume 90.3 fL (80.0-98.0); Mean Platelet Volume 8.9 fL (9.4-12.3); Monocytes Absolute Auto 0.6 X10*3/uL (0.1-1.2); Neutrophils Absolute Auto 5.9 x10*3/uL (2.0-8.3); Neutrophils Percent Auto 57.9 % (45-73); Platelet Count 240 X10*3/uL (160-400); Red Blood Count 5.04 X10*6/uL (4.20-5.50); White Blood Count 10.1 X10*3/uL (4.8-10.8)
[2021-01-23 13:37] LABS: Appearance Urine HAZY; Color Urine YELLOW; Glucose Urine UA NEG (NEG); Leukocyte Esterase Urine NEG (NEG); Nitrite Urine NEG (NEG); PH 5.5 (5.0-8.0); Specific Gravity - Urine 1.025 (1.005-1.025); Urine Blood NEG (NEG); Urine Ketones NEG (NEG); Urine Protein NEG (NEG-TRACE)
[2021-01-23 13:42] LABS: D Dimer High Sensitivity 220 NG/ML
[2021-01-23 13:50] LABS: Alanine Aminotransferase 35 U/L (0-31); Albumin Level 4.4 g/dL (3.5-5.0); Alkaline Phosphatase 87 U/L (39-117); Anion Gap 14 (12-20); Aspartate Amino Transferase 26 U/L (5-31); Bilirubin Direct 0.2 mg/dL (0.0-0.5); Bilirubin Total 0.7 mg/dL (0.0-1.0); Blood Urea Nitrogen 9 mg/dL (9-16); Calcium 10.1 mg/dL (8.4-10.2); Carbon Dioxide 25 mmol/L (22-29); Chloride 104 mmol/L (96-108); Creatinine Clr Calc Pharmacy 110.9; Estimated Glomerular Filt Rate > 60; Glucose Random 122 mg/dL (60-115); Lipase 23 U/L (8-78); Potassium 4.2 mmol/L (3.3-5.1); Sodium 139 mmol/L (135-145); Total Protein 7.3 g/dL (6.5-8.0)
[2021-01-23 13:51] LABS: Squamous Epithelial Cell Urine 1+ /LPF
[2021-01-23 13:52] LABS: Bacteria Urine 2+ /LPF; RBC Urine 0 /HPF (0); WBC Urine 0-2 /HPF (0-4)
[2021-01-23 13:54] LABS: B Type Natriuretic Peptide < 10 pg/mL (<100)
[2021-01-23 13:55] LABS: Troponin-I High Sensitivity < 3.5 ng/L (<3.5-17.0)
== END 2021-01-23 14:26 | disposition home or self-care (01) ==
PROVIDERS: Emergency Provider Emergency Medicine Emergency Medical Services; PCP Internal Medicine
DX: R07.9 Chest pain, unspecified (principal); R42 Dizziness and giddiness; R53.81 Other malaise; R06.02 Shortness of breath
CPT/HCPCS: 36415; 71045; 80048; 80076; 81001; 83690; 83880; 84484; 85025; 85379; 93005; 99283; 99284

== ENCOUNTER → 2021-02-13 09:10 | Outpatient (BNVA) | payer OTHER, SELFPAY | PROVIDERS: PCP Internal Medicine; Referring Provider Internal Medicine; Visit Provider Internal Medicine Gastroenterology | DX: R11.0 Nausea (principal); K21.00 Gastro-esophageal reflux disease with esophagitis, without bleeding; R13.10 Dysphagia, unspecified; R63.4 Abnormal weight loss; R10.10 Upper abdominal pain, unspecified | CPT/HCPCS: 99212 ==

== ENCOUNTER → 2021-03-26 09:40 | Outpatient (BNVA) | payer OTHER, SELFPAY | PROVIDERS: PCP Internal Medicine; Referring Provider Internal Medicine; Visit Provider Internal Medicine Cardiovascular Disease | DX: R06.02 Shortness of breath (principal); I47.1 Supraventricular tachycardia; Z79.899 Other long term (current) drug therapy | CPT/HCPCS: 93005; 99212 ==

== ENCOUNTER 2021-03-30 08:29 | Emergency (ER) | payer OTHER, SELFPAY ==
--- NOTE | 2021-03-30 08:34 | ECG_ITS ---
Test Reason : CHEST PAIN Blood Pressure : / mmHG Vent. Rate : 085 BPM Atrial Rate : 085 BPM P-R Int : 142 ms QRS Dur : 090 ms QT Int : 396 ms P-R-T Axes : 055 010 022 degrees QTc Int : 471 ms Normal sinus rhythm Normal ECG No previous ECGs available Referred By: Rinku Neal Electronically Signed By:JUN OCHOA MD
[2021-03-30 08:39] VITALS: BP 137/83; PULSE 86; RESP 18; TEMP 36.3; O2SAT 99; BMI 35.2
--- NOTE | 2021-03-30 08:59 | ED.CHESTPAIN ---
HPI - Chest Pain General Chief Complaint: Chest Pain Stated Complaint: CHEST PAIN Time Seen by Provider: 03/30/21 08:59 Source: patient Mode of arrival: ambulatory Limitations: no limitations History of Present Illness HPI narrative: patient complaining of diffuse myalgias. patient states she has diffuse weakness for 3 days, she has been vomiting for 3 days. patient denies fever or chills. she has pain all over her body and hand numbness. Patient states that her GERD is much worse and she is mostly feeling weak. Patient is vaccinated against COVID. MD complaint: chest pain Associated symptoms: nausea, vomiting and other (epigastric pain) Related Data Home Medications Medication Instructions Recorded Confirmed lorazepam 1 mg tablet 1 mg PO QID PRN 02/13/20 03/26/21 meclizine 25 mg tablet mg PO 02/13/20 03/26/21 mometasone 0.1 % topical ointment TOPICAL 02/13/20 03/26/21 paroxetine HCl 20 mg tablet 20 mg PO DAILY 02/13/20 03/26/21 paroxetine HCl 40 mg tablet 40 mg PO DAILY 02/13/20 03/26/21 peg-electrolyte solution 420 gram ml PO 02/13/20 03/26/21 oral solution sucralfate 1 gram tablet 0 g PO 02/13/20 03/26/21 topiramate 100 mg tablet 100 mg PO DAILY 02/13/20 03/26/21 zolpidem 10 mg tablet 10 mg PO BEDTIME PRN 02/13/20 03/26/21 valacyclovir 500 mg tablet 500 mg PO BID PRN tab 03/26/21 03/26/21 (Valtrex) Previous Rx's Medication Instructions Recorded metoprolol succinate 100 mg 100 mg PO DAILY #90 tab 03/21/20 tablet,extended release 24 hr cyclobenzaprine 10 mg tablet 10 mg PO TID PRN #10 tab 04/19/20 lidocaine 5 % topical ointment 1 appl TOPICAL DAILY 30 Days #30 g 07/01/20 ondansetron HCl 8 mg tablet 8 mg PO BID 90 Days #180 tab 07/01/20 sjnduhklsq-kzytxwshvjpsr-npcwlnsu 1 cap PO Q6H PRN #20 cap 08/06/20 50 mg-300 mg-40 mg capsule (Fioricet) polyethylene glycol 3350 17 17 g PO DAILY 30 Days #510 g 09/23/20 gram/dose oral powder (Miralax) calcium polycarbophil 625 mg 625 mg PO QID PRN #120 tab 09/24/20 tablet (Fiber-Lax) bisacodyl 5 mg tablet,delayed 5 mg PO BEDTIME 90 Days #90 tab 12/11/20 release albuterol sulfate 90 mcg/actuation 2 puff INHALATION Q6H PRN 30 Days 02/05/21 aerosol inhaler (ProAir HFA) #6.7 g nebulizers (Aeroneb Go Nebulizer) #1 ea 02/05/21 esomeprazole magnesium 40 mg 40 mg PO DAILY #90 cap 02/13/21 capsule,delayed release ondansetron 4 mg disintegrating 4 mg PO Q8H 4 Days #12 tab 03/30/21 tablet pantoprazole 40 mg tablet,delayed 40 mg PO DAILY #20 tab 03/30/21 release (Protonix) Allergies Allergy/AdvReac Type Severity Reaction Status Date / Time bee pollen [BEE STINGS] Allergy Intermediate RASH Verified 02/13/21 09:29 SWELLING PAIN FULL. phentermine Allergy Intermediate ANXIETY Verified 02/13/21 09:29 pneumococcal vaccine Allergy Intermediate Swelling Verified 02/13/21 09:29 tramadol Allergy Intermediate stomach Verified 02/13/21 09:29 upset adhesive tape [ADHESIVE TAPE] Allergy Mild RASH Verified 02/13/21 09:29 oxycodone [OXYCODONE] AdvReac Intermediate VOMITING Verified 02/13/21 09:29 Review of Systems Constitutional: Constitutional: Reports no additional constitutional complaints Eyes: Eyes: Reports no additional eye complaints ENT: Denies dizziness Cardiovascular: Cardiovascular: Reports no additional cardiovascular complaints Respiratory: Respiratory: Reports as per HPI Gastrointestinal: Gastrointestinal: Reports no additional gastrointestinal complaints Genitourinary: Genitourinary: Reports no additional female genitourinary complaints Musculoskeletal: Musculoskeletal: Reports no additional musculoskeletal complaints Integumentary/Breasts: Skin/Breast: Denies rash Neurologic: Denies dizziness and Denies Sensory deficit (Neuro) Psychiatric: Psychiatric: Denies anxiety PMFSH Past Medical History Medical History Depression with anxiety GERD (gastroesophageal reflux disease) Herpes simplex type 2 infection Impaired glucose tolerance Insomnia Left knee pain Left leg pain Mild persistent asthma Mild recurrent major depression Mixed hyperlipidemia Nausea Supraventricular tachycardia Surgical History History of cardiac radiofrequency ablation History of esophagogastroduodenoscopy (EGD) History of removal of cyst History of surgery History of total abdominal hysterectomy Hx of colonoscopy Family History Family History Father Brain cancer Mother Esophageal cancer Sister Breast cancer Paternal Uncle Diabetes Hypertension Social History Social History Household Members: Children Housing: Apartment Alcohol intake: never Patient Tobacco Use Status: Never used Tobacco e-Cigarette/Vaping Use: Never Used Second Hand Smoke Exposure: No Advance Directives: No Advance Directives Information Provided: No service: No Current occupational status: unemployed Physical Exam Vital Signs: Vital Signs: Last Vital Signs Temp 97.3 F 03/30/21 08:39 Pulse 86 03/30/21 08:39 Resp 18 03/30/21 08:39 BP 137/83 03/30/21 08:39 Pulse Ox 99 03/30/21 08:39 BMI result Body Mass Index 35.2 Const: Other: Patient is anxious General: healthy appearing Nutritional Appearance: average body habitus Orientation/consciousness: oriented to person and patient oriented x3 Limitations: no limitations HENMT: Head: Yes normal to inspection Ears: external ears normal General nose exam: Normal external nose present Mouth: Normal oral and palatal mucosa present and oropharynx normal Throat: Yes posterior oropharynx normal Eyes: General: appearance normal, both eyes and all related structures Neck: Other: supple Neck: Yes normal visual inspection Chest: Chest palpation & inspection: normal inspection of the chest Resp: Auscultation: clear to auscultation bilaterally Cardio: Jugular venous distension: no JVD Rate: regular rate Rhythm: regular rhythm Heart sounds: S1 normal heart sound present and S2 normal heart sound present GI: Inspection: Yes normal to inspection Palpation (GI): Soft to palpation, nontender and No hepatosplenomegaly present Auscultation: normal bowel sounds : General: Yes no CVA tenderness Back/Spine/Pelvis: Back: no CVA tenderness Skin: General skin exam: no rashes or lesions noted Neuro: General: oriented to person and patient oriented x3 Cranial nerves: Yes CN's II-XII intact bilaterally Motor exam (neuro): 5/5 motor strength present throughout Sensory Exam: No Sensory deficit (Neuro) Extrem: General: Yes normal to inspection Psych: Appearance: grossly normal Course Reevaluation(s) Reevaluation #1: Patient here for nausea and vomiting, will dc home on zofran and protonix, no evidence of LFt abnormalities, will dc home MDM - Chest Pain Lab Data Result diagrams: 03/30/21 09:46 03/30/21 09:46 Labs: Lab Results 03/30/21 03/30/21 Range/Units 09:46 09:46 WBC 8.2 (4.8-10.8) X10*3/uL RBC 4.56 (4.20-5.50) X10*6/uL Hgb 14.1 (12.0-16.0) g/dl Hct 41.9 (37.0-47.0) % MCV 91.9 (80.0-98.0) fL MCH 30.9 (27.0-33.0) pg MCHC 33.7 (31.0-35.0) g/dl RDW 12.8 (11.0-16.0) % Plt Count 254 (160-400) X10*3/uL MPV 8.7 L (9.4-12.3) fL Immature Gran % (Auto) 0.6 H (0.0-0.4) % Neut % (Auto) 56.8 (45-73) % Lymph % (Auto) 32.0 (20-40) % [place] % (Auto) 6.8 (2-11) % Eos % (Auto) 3.2 (0-4) % Baso % (Auto) 0.6 (0-2) % Lymph # (Auto) 2.6 (1.2-4.9) X10*3/uL [place] # (Auto) 0.6 (0.1-1.2) X10*3/uL Eos # (Auto) 0.3 (0.0-0.4) X10*3/uL Baso # (Auto) 0.1 (0.0-0.2) X10*3/uL Abs Immat Gran (auto) 0.05 H (0.00-0.03) X10*3/uL Absolute Neuts (auto) 4.6 (2.0-8.3) x10*3/uL Absolute Nucleated RBC 0.000 (0.0-0.012) X10*3/uL Nucleated RBC % (auto) 0.0 (0.0-0.2) /100WBC Sodium 140 (135-145) mmol/L Potassium 3.9 (3.3-5.1) mmol/L Chloride 107 (96-108) mmol/L Carbon Dioxide 22 (22-29) mmol/L Anion Gap 15 (12-20) BUN 13 (9-16) mg/dL Creatinine 0.77 (0.5-1.4) mg/dL Estim Creat Clear Calc 102.5 Estimated GFR > 60 Random Glucose 199 H (60-115) mg/dL Calcium 9.6 (8.4-10.2) mg/dL Total Bilirubin 0.6 (0.0-1.0) mg/dL Direct Bilirubin 0.2 (0.0-0.5) mg/dL AST 23 (5-31) U/L ALT 32 H (0-31) U/L Alkaline Phosphatase 83 (39-117) U/L Total Protein 6.9 (6.5-8.0) g/dL Albumin 4.1 (3.5-5.0) g/dL Lipase 45 (8-78) U/L ECG Data ECG #1: Attestation: I personally reviewed and interpreted this ECG as follows: Interpretation: normal sinus rate 85, no st or twave changes Discharge Plan Discharge Clinical Impression: Nausea GERD (gastroesophageal reflux disease) Qualifiers: Esophagitis presence: with esophagitis Esophagitis bleeding: without hemorrhage Qualified Code(s): K21.00 - Gastro-esophageal reflux disease with esophagitis, without bleeding Vomiting Qualifiers: Vomiting type: unspecified Nausea presence: with nausea Qualified Code(s): R11.2 - Nausea with vomiting, unspecified Patient Disposition: Home, Self-Care Prescriptions: New pantoprazole [Protonix] 40 mg tablet,delayed release (DR/EC) 40 mg PO DAILY Qty: 20 RF: 0 ondansetron 4 mg tablet,disintegrating 4 mg PO Q8H 4 Days Qty: 12 RF: 0 No Action metoprolol succinate 100 mg tablet extended release 24 hr 100 mg PO DAILY Qty: 90 RF: 3 polyethylene glycol 3350 [Miralax] 17 gram/dose powder 17 g PO DAILY 30 Days Qty: 510 RF: 1 calcium polycarbophil [Fiber-Lax] 625 mg tablet 625 mg PO QID PRN (Reason: constipation) Qty: 120 RF: 6 bisacodyl 5 mg tablet,delayed release (DR/EC) 5 mg PO BEDTIME 90 Days Qty: 90 RF: 1 (DME) Aeroneb Go Nebulizer Misc See Rx Instructions .Route Qty: 1 RF: 0 albuterol sulfate [ProAir HFA] 90 mcg/actuation HFA aerosol inhaler 2 puff inhalation Q6H PRN (Reason: shortness of breath or wheezing) 30 Days Qty: 6.7 RF: 1 cyclobenzaprine 10 mg tablet 10 mg PO TID PRN (Reason: muscle spasm) Qty: 10 RF: 0 mphzrmwucg-abccefhmrtivq-wnyt [Fioricet] 50-300-40 mg capsule 1 cap PO Q6H PRN (Reason: headache) Qty: 20 RF: 0 ondansetron HCl 8 mg tablet 8 mg PO BID 90 Days Qty: 180 RF: 1 lidocaine 5 % ointment 1 appl topical DAILY 30 Days Qty: 30 RF: 6 paroxetine HCl 40 mg tablet 40 mg PO DAILY RF: 0 paroxetine HCl 20 mg tablet 20 mg PO DAILY RF: 0 lorazepam 1 mg tablet 1 mg PO QID PRNRF: 0 zolpidem 10 mg tablet 10 mg PO BEDTIME PRNRF: 0 mometasone 0.1 % ointment topical RF: 0 topiramate 100 mg tablet 100 mg PO DAILY RF: 0 sucralfate 1 gram tablet 0 g PO RF: 0 peg-electrolyte soln 420 gram recon soln PO RF: 0 meclizine 25 mg tablet PO RF: 0 valacyclovir [Valtrex] 500 mg tablet 500 mg PO BID PRNRF: 0 esomeprazole magnesium 40 mg capsule,delayed release(DR/EC) 40 mg PO DAILY Qty: 90 RF: 1 Referrals: Kayy Escobar MD [Primary Care Provider] - 5 days
[2021-03-30 09:49] LABS: MANUAL DIFF FLAG NO
[2021-03-30 09:51] LABS: Basophils Absolute Auto 0.1 X10*3/uL (0.0-0.2); Basophils Percent Auto 0.6 % (0-2); Eosinophils Absolute Auto 0.3 X10*3/uL (0.0-0.4); Eosinophils Percent Auto 3.2 % (0-4); Hematocrit 41.9 % (37.0-47.0); Hemoglobin 14.1 g/dl (12.0-16.0); Imm Gran Abs Auto 0.05 X10*3/uL (0.00-0.03); Imm Gran Pct Auto 0.6 % (0.0-0.4); Lymphocytes Absolute Auto 2.6 X10*3/uL (1.2-4.9); Mean Corpuscular HGB Conc 33.7 g/dl (31.0-35.0); Mean Corpuscular Hemoglobin 30.9 pg (27.0-33.0); Mean Corpuscular Volume 91.9 fL (80.0-98.0); Mean Platelet Volume 8.7 fL (9.4-12.3); Monocytes Absolute Auto 0.6 X10*3/uL (0.1-1.2); Monocytes Percent Auto 6.8 % (2-11); Neutrophils Absolute Auto 4.6 x10*3/uL (2.0-8.3); Neutrophils Percent Auto 56.8 % (45-73); Platelet Count 254 X10*3/uL (160-400); Red Blood Count 4.56 X10*6/uL (4.20-5.50); Red Cell Distribution Width 12.8 % (11.0-16.0); White Blood Count 8.2 X10*3/uL (4.8-10.8)
[2021-03-30] MEDS: 0.9 % Sodium Chloride 1,000 ML 999 ML IVCONT (09:51)
[2021-03-30] MEDS: Magnesium Hydrox/Alum Hydrox 30 ML ORAL.SUSP PO (09:51)
[2021-03-30] MEDS: ondansetron HCL 4 MG/2 ML VIAL IVPUSH (09:52)
[2021-03-30] MEDS: Pantoprazole Sodium 40 MG/10 ML VIAL IVPUSH (09:52)
[2021-03-30 10:08] LABS: Alanine Aminotransferase 32 U/L (0-31); Albumin Level 4.1 g/dL (3.5-5.0); Alkaline Phosphatase 83 U/L (39-117); Anion Gap 15 (12-20); Aspartate Amino Transferase 23 U/L (5-31); Bilirubin Direct 0.2 mg/dL (0.0-0.5); Bilirubin Total 0.6 mg/dL (0.0-1.0); Blood Urea Nitrogen 13 mg/dL (9-16); Calcium 9.6 mg/dL (8.4-10.2); Carbon Dioxide 22 mmol/L (22-29); Chloride 107 mmol/L (96-108); Creatinine Clr Calc Pharmacy 102.5; Estimated Glomerular Filt Rate > 60; Glucose Random 199 mg/dL (60-115); Lipase 45 U/L (8-78); Potassium 3.9 mmol/L (3.3-5.1); Sodium 140 mmol/L (135-145); Total Protein 6.9 g/dL (6.5-8.0)
== END 2021-03-30 11:00 | disposition home or self-care (01) ==
PROVIDERS: Emergency Provider Emergency Medicine; PCP Internal Medicine
DX: K21.00 Gastro-esophageal reflux disease with esophagitis, without bleeding (principal); R11.2 Nausea with vomiting, unspecified
CPT/HCPCS: 36415; 80048; 80076; 83690; 85025; 93005; 96361; 96374; 96375; 99283; 99284; J2405

== ENCOUNTER → 2021-04-14 09:43 | Outpatient (REF) | payer OTHER, SELFPAY ==
--- NOTE | ~2021-04-14 | NM_ITS ---
Lexiscan Myocardial perfusion study Indication: Abnormal EKG, assess for coronary disease and ischemia Technique: The patient was brought in for a Lexiscan perfusion study on 04/14/2021 and was injected 0.4 mg of Lexiscan intravenously. Within a minute of this injection 35 mCi of sestamibi was given intravenously. Images were obtained using the SPECT gamma camera interlaced with the gating device. Images were obtained in supine position. Resting perfusion study was performed on 04/16/2021. Patient was administered 30 mCi of sestamibi intravenously at rest. Images were then obtained in supine position. Total DLP 134mGy-cm. Images were processed with the software and compared side to side in short axis, horizontal long axis and vertical long axis views. Findings: Raw acquisition was reviewed. The stress perfusion study showed diminished tracer uptake in the distal part of anterior wall. There is improvement with CT attenuation correction and hence could be from soft tissue attenuation artifact. The gated study shows normal LV systolic function with calculated LVEF of 59%. LV cavity is normal in size. The gated study shows normal wall thickening and contraction of segments. Resting study shows no significant perfusion abnormality. Gating at rest reveals normal wall motion with ejection fraction at 58%. The findings are consistent with reversible distal anterior wall defect, but improving with CT attenuation correction and hence probably from soft tissue attenuation artifact. MT/MT cardiolite stress test Impression: 1. Myocardial perfusion imaging study shows likely normal perfusion. Reversible distal anterior defect, but improving with CT attenuation correction; also with normal contractility on gating, and hence suggestive of soft tissue attenuation artifact. 2. Gated LVEF is 59% during stress and 58% during rest. 3. Transient ischemic dilatation not present. EKG component of the test reported separately.
--- NOTE | 2021-04-14 09:47 | CA_ITS ---
Acquisition Time: 2021-04-14 10:44:05 Total Exercise Time: 00:03:38 Test Indications: abn ekg Medications: see chart Protocol: RAMÍREZ Max HR: 127 BPM 76% of Pred: 166 BPM Max BP: 148/086 mmHG Max Work Load: 5.3 METS Exercise stress test with exercise 3 min 38 sec of Ramírez protocol, with moderate sob, fatigue and request to slow exercise. Treadmill placed in recovery and treadmill slowed to 1.2 MPH. Testing changed to a pharmacological stress test with Lexiscan injection, without anginal symptoms, without arrythmia, with normotensive response to injection, with nondiagnostic EKG for ischemia. In recovery she reported dizziness and was treated with Aminophylline 75mg IVP to reverse Lexiscan with resolution of symptom. Nuclear images pending. Test reviewed with Dr Reyes. Referred By: Prasad Kim Overread By: JORGE HERNANDEZ
== END ==
LOC: HO.CARD 09:43
PROVIDERS: PCP Internal Medicine; Visit Provider Internal Medicine Cardiovascular Disease
DX: R07.9 Chest pain, unspecified (principal); R06.02 Shortness of breath
CPT/HCPCS: 78452; 93017; A9500; J0280; J2785

== ENCOUNTER 2021-05-13 13:45 | Outpatient (REF) | payer OTHER, SELFPAY ==
[2021-05-13 14:22] LABS: MANUAL DIFF FLAG NO
[2021-05-13 14:53] LABS: Basophils Percent Auto 0.5 % (0-2); Eosinophils Absolute Auto 0.2 X10*3/uL (0.0-0.4); Eosinophils Percent Auto 2.6 % (0-4); Hematocrit 43.6 % (37.0-47.0); Hemoglobin 14.5 g/dl (12.0-16.0); Imm Gran Abs Auto 0.03 X10*3/uL (0.00-0.03); Imm Gran Pct Auto 0.4 % (0.0-0.4); Lymphocytes Absolute Auto 2.7 X10*3/uL (1.2-4.9); Lymphocytes Percent Auto 37.2 % (20-40); Mean Corpuscular HGB Conc 33.3 g/dl (31.0-35.0); Mean Corpuscular Hemoglobin 29.7 pg (27.0-33.0); Mean Corpuscular Volume 89.3 fL (80.0-98.0); Mean Platelet Volume 9.3 fL (9.4-12.3); Monocytes Absolute Auto 0.5 X10*3/uL (0.1-1.2); Neutrophils Absolute Auto 3.8 x10*3/uL (2.0-8.3); Neutrophils Percent Auto 52.3 % (45-73); Platelet Count 249 X10*3/uL (160-400); Red Blood Count 4.88 X10*6/uL (4.20-5.50); Red Cell Distribution Width 12.8 % (11.0-16.0); White Blood Count 7.3 X10*3/uL (4.8-10.8)
== END 2021-05-13 13:46 | disposition home or self-care (01) ==
LOC: HO.LAB 13:45
PROVIDERS: PCP Internal Medicine; Visit Provider Internal Medicine Pulmonary Disease
DX: J45.909 Unspecified asthma, uncomplicated (principal); Z91.09 Other allergy status, other than to drugs and biological substances; U09.9 Post COVID-19 condition, unspecified
CPT/HCPCS: 36415; 82785; 85025; 86003; 99202

== ENCOUNTER 2021-05-14 10:35 | Outpatient (REF) | payer OTHER, SELFPAY ==
[2021-05-14 11:45] LABS: Alanine Aminotransferase 50 U/L (0-31); Albumin Level 4.6 g/dL (3.5-5.0); Alkaline Phosphatase 99 U/L (39-117); Anion Gap 14 (12-20); Aspartate Amino Transferase 36 U/L (5-31); Bilirubin Total 0.8 mg/dL (0.0-1.0); Blood Urea Nitrogen 10 mg/dL (9-16); Carbon Dioxide 26 mmol/L (22-29); Chloride 104 mmol/L (96-108); Cholesterol 226 mg/dL; Estimated Glomerular Filt Rate > 60; Glucose Fasting 216 mg/dL (60-99); HDL Cholesterol 51 mg/dL; LDL Cholesterol Calculated 116 mg/dl; Potassium 4.1 mmol/L (3.3-5.1); Sodium 140 mmol/L (135-145); Total Protein 7.4 g/dL (6.5-8.0); Triglycerides 298 mg/dL
[2021-05-16 03:36] LABS: Immunoglobulin E 80 kU/L (<OR=114)
== END 2021-05-14 10:36 | disposition home or self-care (01) ==
LOC: HO.LAB 10:35
PROVIDERS: Internal Medicine Pulmonary Disease; PCP Internal Medicine; Visit Provider Internal Medicine
DX: Z91.09 Other allergy status, other than to drugs and biological substances (principal); R73.02 Impaired glucose tolerance (oral); E78.5 Hyperlipidemia, unspecified
CPT/HCPCS: 36415; 80053; 80061; 82785

== ENCOUNTER → 2021-05-18 08:15 | Outpatient (REF) | payer OTHER, SELFPAY ==
--- NOTE | 2021-05-18 08:17 | CA_ITS ---
Transthoracic Echocardiogram Patient (Last, First, Middle): Simi Garza, Gender: Female Date of : 1965 Age: 56 Procedure Date: 05/18/2021 Procedure Type: Transthoracic Echocardiogram Location: OP Height: 170.18 cm Weight: 102.51 kg BSA: 2.13 m2 Heart Rate: bpm BP: 120 / 80 mmHg Shape Brick Molder: VH/OT Referring MD: Prasad Kim MD Symptoms: R06.02 - Shortness of breath Study Quality: Good ECG Rhythm: Sinus Conclusions: - The left ventricular systolic function is normal. The calculated ejection fraction is 57% by biplane method. - Mild to moderate focal hypertrophy of the basal septum. - No obvious valvular pathology seen on this study. Findings Left Ventricle Normal left ventricular cavity size. The left ventricular systolic function is normal. The calculated ejection fraction is 57% by biplane method. There is no evidence of regional wall motion abnormalities. E/E prime ratio is between 8 and 15 consistent with indeterminate filling pressures. Evidence suggests grade I (mild) diastolic dysfunction. Mild to moderate focal hypertrophy of the basal septum. Right Ventricle Normal right ventricular cavity size and systolic function. Atria Both atria are normal in size. Aortic Valve There is a normal trileaflet aortic valve. There is no aortic valve stenosis. There is no aortic valve regurgitation. Mitral Valve The mitral valve appears normal. There is trace mitral valve regurgitation. There is no mitral valve stenosis. Pulmonic Valve The pulmonic valve was not well visualized. There is trace pulmonic valve regurgitation. Tricuspid Valve Rheumatic tricuspid valve is noted. There is trace tricuspid valve regurgitation. The pulmonary artery systolic pressure is normal. Great Vessels The aortic annulus, sinuses of valsalva, and asc aorta are normal in size. Venous The inferior vena cava is normal in size and collapses greater than 50% with inspiration. Pericardium/Pleural There is no evidence of pericardial effusion. Prior Study Comparison Changes noted compared to prior study dated: 07/19/2014. See comment on LV hypertrophy- not described in past. Recommendations, Care & Conclusions No obvious valvular pathology seen on this study. Measurements 2D Linear Measurements IVSd: 1.39 0.6-0.9/0.6-1.0 cm LVIDd: 3.76 3.9-5.3/4.2-5.9 cm LVIDd Index: 1.77 2.4-3.2/2.2-3.1 cm/m2 LVIDs: 2.30 2.0-3.6 cm LVPWd: 1.33 0.7-1.1 cm LA Diam: 4.10 2.7-3.8/3.0-4.0 cm LAIDs Index: 1.92 1.5-2.3 cm/m2 LV Mass: 227.70 67-162/88-224 g LV Mass Index: 106.90 43-95/49-115 g/m2 LVOT Diam: 2.00 3.0+(-)1.3 cm 2D Systolic Function EF 4C: 55.40 >55% EF 2C: 55.80 >55% EF BiP: 56.90 >55% Mitral Valve MV Pk E: 0.74 MV PK A: 0.71 MV Decel Time: 182.00 E/A: 1.00 E'Lateral: 6.10 E'Medial: 5.77 E/E' Med: 12.80 E/E' Lat: 12.10 PHT: 53.00 MVA PHT: 4.15 Decel [place]: 4.06 Aortic Valve AoV Pk Baron: 0.92 AoV Mn Baron: 0.64 AoV VTI: 0.19 AoV Pk Grad: 3.00 Aov Mn Grad: 2.00 NICOL Cont.VTI: 2.83 LVOT LVOT Pk Baron: 0.79 LVOT Mn Baron: 0.50 LVOT VTI: 0.17 LVOT Pk Grad: 2.00 LVOT Mn Grad: 1.00 LVOT Diam: 2.00 LVOT Area: 3.14 Diastolic Function MV Pk E: 0.74 MV Pk A: 0.71 E/A: 1.00 E'Medial: 5.77 E/E' Med: 12.80 E' Laterial: 6.10 E/E' Lat: 12.10 Right Ventricle TAPSE (mm): 18.00 TVS' Baron: 10.00 Tricuspid Valve TR Pk Baron: 2.19 TR Pk Grad: 19.00 RA Press: 3.00 RVSP: 22.00 Great Vessels Aorta Ao Asc: 3.20 2.1-3.4 cm Pulmonary Valve PV Pk Baron: 0.83 Peak PV Grad: 3.00 Updated in Other Vendor System with Status of Final Ozzie Song MD electronically signed on 05/18/2021 10:30:19 AM with status of Final
== END ==
LOC: HO.CARD 08:15
PROVIDERS: PCP Internal Medicine; Visit Provider Internal Medicine Cardiovascular Disease
DX: R06.02 Shortness of breath (principal)
CPT/HCPCS: 93306

== ENCOUNTER 2021-05-20 09:09 | Outpatient (REF) | payer OTHER, SELFPAY ==
--- NOTE | ~2021-05-20 | US_ITS ---
EXAMINATION: US COMPLETE ABDOMEN WITH LIVER ELASTOGRAPHY CLINICAL INFORMATION: Nausea. COMPARISON: None. TECHNIQUE: Real-time imaging of the abdominal viscera. Noninvasive ultrasound liver fibrosis assessment is performed using Feli ElastPQ point quantification shear wave elastography (2D-SWE) with a C5-2 MHz transducer. Multiple elastography samples are obtained. FINDINGS: PANCREAS: The pancreas is completely obscured by overlying gas. ABDOMINAL AORTA: The proximal, middle, and distal aortic segments are normal in caliber. INFERIOR VENA CAVA: Visualized portions are normal. LIVER: The liver demonstrates normal size, contour and increased echogenicity. No focal lesion or intrahepatic biliary duct dilatation. The right lobe measures 18.8 cm in length. The left lobe measures 14.8 cm in length. Portal flow is hepatopedal Shear wave liver elastography median stiffness is 1.34 m/s (reference: normal median stiffness is 1.3 m/s or less). IQR/median stiffness to assess sampling precision is 0.1 (reference: good quality data set is IQR/median stiffness of 0.15 or less). GALLBLADDER: Normal. The gallbladder is physiologically distended without evidence of stones, sludge, polyps, wall thickening or pericholecystic fluid. COMMON BILE DUCT: Normal in caliber measuring 0.3 - 0.4 cm in diameter. RIGHT KIDNEY: There is anechoic cyst in upper pole measuring 2.2 x 1.8 x 2.3 cm. There is a small calcification in the upper pole cortex measuring 0.6 x 0.5 x 0.7 cm. No hydronephrosis. No renal calculi or focal parenchymal lesions. The kidney measures 11.5 cm in maximum dimension. LEFT KIDNEY: There is anechoic cyst in the midpole measuring 1.7 x 0.9 x 1.2 cm in midpole. No hydronephrosis. No renal calculi or focal parenchymal lesions. The kidney measures 12.2 cm in maximum dimension. SPLEEN: Slightly malrotated. The spleen measures 11.8 cm in maximum dimension. FREE FLUID: None. US/US abdomen comp w elastography IMPRESSION: 1. Mild hepatic steatosis without focal lesion. Upper pole right renal cyst and a small calcification as well. No caliectasis or hydronephrosis. Small cyst midpole left kidney. 2. Liver elastography: Median liver stiffness 1.34M/S suggestive of cACLD ruled out. REFERENCE: Society of Radiologists in Ultrasound Liver Stiffness Thresholds (2020): LIVER STIFFNESS THRESHOLDS: *Liver Stiffness equal or less than 1.3 m/s: High probability of being normal. *Liver Stiffness less than 1.7 m/s: In the absence of other known clinical signs, rules out compensated advanced chronic liver disease. *Liver Stiffness 1.7-2.1 m/s: Suggestive of compensated advanced chronic liver disease but need further test for confirmation. *Liver Stiffness over 2.1 m/s: Rules in compensated advanced chronic liver disease. *Liver Stiffness over 2.4 m/s: Suggestive of clinically significant portal hypertension. QUALITY OF DATA SET: *IQR/Median value equal or less than 0.15 implies a quality data set. *IQR/Median value over 0.15 implies a poor quality data set. SIGNIFICANT CHANGE FROM PRIOR EXAM: Significant change if liver stiffness measurement is 10% or greater from prior exam. OTHER CONSIDERATIONS: The stage of liver fibrosis may be overestimated in the setting of acute hepatitis, liver inflammation, elevated liver function tests, hepatic vascular congestion, obstructive cholestasis, non-fasting state, and infiltrative diseases such as amyloidosis and lymphoma. In some patients with NAFLD, the liver stiffness thresholds for compensated advanced chronic liver disease may be lower. In causes other than viral hepatitis and NAFLD, liver stiffness thresholds are not well established.
== END 2021-05-20 09:10 | disposition home or self-care (01) ==
LOC: HO.US 09:09
PROVIDERS: PCP Internal Medicine; Visit Provider Internal Medicine Gastroenterology
DX: R11.0 Nausea (principal)
CPT/HCPCS: 76705; 76981

== ENCOUNTER → 2021-06-02 13:03 | Outpatient (BNVA) | payer OTHER, SELFPAY | PROVIDERS: PCP Internal Medicine; Referring Provider Internal Medicine; Visit Provider Nurse Practitioner Family | DX: I47.1 Supraventricular tachycardia (principal); R06.02 Shortness of breath; J45.30 Mild persistent asthma, uncomplicated; R93.1 Abnormal findings on diagnostic imaging of heart and coronary circulation; R94.31 Abnormal electrocardiogram [ECG] [EKG] | CPT/HCPCS: 99212 ==

== ENCOUNTER 2021-06-07 07:37 | Emergency (ER) | payer OTHER, SELFPAY ==
[2021-06-07 07:51] VITALS: BP 157/94; PULSE 109; RESP 16; TEMP 36.8; O2SAT 98; BMI 36.3
--- NOTE | 2021-06-07 09:16 | ED_ITS ---
HPI - Skin/Abscess/Foreign Bdy General Chief complaint: Skin/Abscess/Foreign Body Stated complaint: abscess Time Seen by Provider: 06/07/21 09:09 Source: patient and certified court interpreter Mode of arrival: ambulatory Limitations: language barrier History of Present Illness HPI narrative: 56-year-old female with a history of fiw-gpiskah-pfsrztagc diabetes here with reports of redness and swelling to the left inner thigh for the last 1 week. Patient denies any fevers, chills, body aches, nausea, vomiting, abdominal pain, diarrhea. Patient tells me she has had similar abscesses before. Related Data Home Medications Medication Instructions Recorded Confirmed lorazepam 1 mg tablet 1 mg PO QID PRN 02/13/20 06/03/21 meclizine 25 mg tablet mg PO 02/13/20 06/03/21 mometasone 0.1 % topical ointment TOPICAL 02/13/20 06/03/21 paroxetine HCl 20 mg tablet 20 mg PO DAILY 02/13/20 06/03/21 paroxetine HCl 40 mg tablet 40 mg PO DAILY 02/13/20 06/03/21 peg-electrolyte solution 420 gram ml PO 02/13/20 06/03/21 oral solution topiramate 100 mg tablet 100 mg PO DAILY 02/13/20 06/03/21 zolpidem 10 mg tablet 10 mg PO BEDTIME PRN 02/13/20 06/03/21 valacyclovir 500 mg tablet 500 mg PO BID PRN tab 03/26/21 06/03/21 (Valtrex) apremilast 10 mg (4)-20 mg (4)-30 See Rx Instructions PO PER PKG DIR 05/06/21 06/03/21 mg (19) tablets in a dose pack (Otezla Starter) fluticasone propionate 115 2 puff PO Q4-6H PRN 05/06/21 06/03/21 mcg-salmeterol 21 mcg/actuation HFA inhaler (Advair HFA) tiotropium bromide 1.25 2 puff PO QAM 05/06/21 06/03/21 mcg/actuation mist for inhalation (Spiriva Respimat) Previous Rx's Medication Instructions Recorded metoprolol succinate 100 mg 100 mg PO DAILY #90 tab 03/21/20 tablet,extended release 24 hr cyclobenzaprine 10 mg tablet 10 mg PO TID PRN #10 tab 04/19/20 lidocaine 5 % topical ointment 1 appl TOPICAL DAILY 30 Days #30 g 07/01/20 rzpcxmhvrb-qsysowqnbpzdb-kmggckyh 1 cap PO Q6H PRN #20 cap 08/06/20 50 mg-300 mg-40 mg capsule (Fioricet) polyethylene glycol 3350 17 17 g PO DAILY 30 Days #510 g 09/23/20 gram/dose oral powder (Miralax) calcium polycarbophil 625 mg 625 mg PO QID PRN #120 tab 09/24/20 tablet (Fiber-Lax) bisacodyl 5 mg tablet,delayed 5 mg PO BEDTIME 90 Days #90 tab 12/11/20 release albuterol sulfate 90 mcg/actuation 2 puff INHALATION Q6H PRN 30 Days 02/05/21 aerosol inhaler (ProAir HFA) #6.7 g nebulizers (Aeroneb Go Nebulizer) #1 ea 02/05/21 esomeprazole magnesium 40 mg 40 mg PO DAILY #90 cap 02/13/21 capsule,delayed release ondansetron 4 mg disintegrating 4 mg PO Q8H 4 Days #12 tab 03/30/21 tablet pantoprazole 40 mg tablet,delayed 40 mg PO DAILY #20 tab 03/30/21 release (Protonix) blood sugar diagnostic (FreeStyle #100 ea 05/14/21 Test) blood-glucose meter (FreeStyle #1 ea 05/14/21 Lite Meter) lancets 28 gauge (FreeStyle #100 ea 05/14/21 Lancets) metformin 500 mg tablet 500 mg PO BID 90 Days #180 tab 05/14/21 doxycycline monohydrate 100 mg 100 mg PO BID #20 tab 06/07/21 tablet Allergies Allergy/AdvReac Type Severity Reaction Status Date / Time bee pollen [BEE STINGS] Allergy Intermediate RASH Verified 06/07/21 07:56 SWELLING PAIN FULL. phentermine Allergy Intermediate ANXIETY Verified 06/07/21 07:56 pneumococcal vaccine Allergy Intermediate Swelling Verified 05/13/21 13:47 tramadol Allergy Intermediate stomach Verified 06/07/21 07:56 upset adhesive tape [ADHESIVE TAPE] Allergy Mild RASH Verified 06/07/21 07:56 oxycodone [OXYCODONE] AdvReac Intermediate VOMITING Verified 04/03/22 07:56 Review of Systems Review of Systems: Yes all other systems are reviewed and are negative Constitutional: Constitutional: Reports no additional constitutional complaints, Denies body ache(s), Denies chills, Denies fever(s), Denies headache(s) and Denies weakness Eyes: Eyes: Reports no additional eye complaints and Denies change in vision ENT: Reports system reviewed and no additional complaints, except as documented, Denies dizziness, Denies headache(s), Denies nasal congestion, Denies nasal discharge and Denies neck pain Cardiovascular: Cardiovascular: Reports no additional cardiovascular complaints, Denies chest pain, Denies leg edema and Denies dyspnea Respiratory: Respiratory: Reports no additional respiratory complaints, Denies cough and Denies dyspnea Gastrointestinal: Gastrointestinal: Reports no additional gastrointestinal complaints, Denies abdominal pain, Denies diarrhea, Denies nausea and Denies vomiting Genitourinary: Genitourinary: Reports no additional female genitourinary complaints and Denies urinary incontinence Musculoskeletal: Musculoskeletal: Reports no additional musculoskeletal complaints, Denies back pain, Denies arthralgias, Denies joint swelling, Denies neck pain, Denies numbness and Denies tingling Integumentary/Breasts: Skin/Breast: Reports system reviewed and no additional complaints, except as docu, Reports swelling, Reports erythema and Denies rash Neurologic: Reports system reviewed and no additional complaints, except as documented, Denies Abnormal speech present, Denies dizziness, Denies headache(s), Denies numbness, Denies tingling and Denies weakness PMFSH Past Medical History Attestation statement: The following information was validated with the patient. Source: old records reviewed and nursing notes reviewed Medical History Depression with anxiety Diabetes mellitus GERD (gastroesophageal reflux disease) Hand numbness Herpes simplex type 2 infection Impaired glucose tolerance Insomnia Left knee pain Left leg pain Migraines Mild persistent asthma Mild recurrent major depression Mixed hyperlipidemia Nausea Supraventricular tachycardia Surgical History History of cardiac radiofrequency ablation History of esophagogastroduodenoscopy (EGD) History of removal of cyst History of surgery History of total abdominal hysterectomy Hx of colonoscopy Family History Family History Father Brain cancer Mother Esophageal cancer Sister Breast cancer Paternal Uncle Diabetes Hypertension Social History Social History Household Members: Children Housing: Apartment Alcohol intake: never Patient Tobacco Use Status: Never used Tobacco e-Cigarette/Vaping Use: Never Used Second Hand Smoke Exposure: No Advance Directives: No Advance Directives Information Provided: Yes service: No Current occupational status: unemployed Physical Exam Vital Signs: Vital Signs: Last Vital Signs Temp 98.2 F 06/07/21 07:51 Pulse 109 H 06/07/21 07:51 Resp 16 06/07/21 07:51 BP 157/94 H 06/07/21 07:51 Pulse Ox 98 06/07/21 07:51 BMI result Body Mass Index 36.3 Const: General: cooperative, healthy appearing, comfortable and no acute distress Orientation/consciousness: patient oriented x3 Limitations: no limitations HEENT: Head: Yes normal to inspection Ears: hearing grossly normal bilaterally General nose exam: Normal external nose present Face and sinus: Yes normal facial exam Mouth: Normal oral and palatal mucosa present Throat: Yes posterior oropharynx normal Eyes: General: appearance normal, both eyes and all related structures Pupils: Equal, round and reactive pupils present Neck: Neck: Yes normal visual inspection Chest: Chest palpation & inspection: normal inspection of the chest Resp: Effort & Inspection: normal respiratory effort Auscultation: clear to auscultation bilaterally Cardio: Rate: regular rate Rhythm: regular rhythm Peripheral pulses: Pe ripheral pulses 2+ throughout GI: Inspection: Yes normal to inspection Palpation (GI): Soft to palpation and nontender Auscultation: normal bowel sounds Back/Spine/Pelvis: Thoracic/Lumbar Spine: thoracic and lumbar spine normal to inspection Skin: General skin exam: no rashes or lesions noted Neuro: General: patient oriented x3, no focal motor deficits and normal sensation to monofilament Cranial nerves: Yes Equal, round and reactive pupils present Cognition (Neuro): normal cognition Speech: No Abnormal speech present Gait exam (Neuro): Normal gait present Motor exam (neuro): 5/5 motor strength present throughout Extrem: General: Yes normal to inspection Upper/lower leg/hip images: 1. Small abscess centrally with surrounding erythema, swelling and warmth Course Course Course Narrative: 56-year-old female here with abscess the left inner thigh for the last 1 week. See procedure note for I&D. I was only able to express a small amount of purulent drainage. A dressing was applied. Most of the area is more indurated. So I recommended warm compresses. We will initiate antibiotics. Reviewed worrisome signs and symptoms and when to return to the emergency department. Comfortable discharge home. MDM - Skin/Abscess/Foreign Bdy Differential Diagnosis Differential diagnosis: Likely abscess of skin or subcutaneous tissue Medical Records Attestation: I reviewed the patient's medical records. Lab Data Attestation: I reviewed the patient's lab results. Procedures Abscess I/D Site: other (Left inner thigh) Local Anesthetic: lidocaine 2% Amount of anesthesia used (mL): 5 Technique: incised with blade Amount of fluid expressed (mL): 2 Sent for culture/gram staining?: No Irrigation: No Packing used?: none Discharge Plan Discharge Clinical Impression: Abscess of skin or subcutaneous tissue Patient Disposition: Home, Self-Care Instructions: Abscess (ED) Additional Instructions: Leave the dressing in place for today Warm soaks four times daily starting tomorrow Return for fever >100.4, increasing redness/swelling Prescriptions: New doxycycline monohydrate 100 mg tablet 100 mg PO BID Qty: 20 0RF No Action metoprolol succinate 100 mg tablet extended release 24 hr 100 mg PO DAILY Qty: 90 3RF polyethylene glycol 3350 [Miralax] 17 gram/dose powder 17 g PO DAILY 30 Days Qty: 510 1RF calcium polycarbophil [Fiber-Lax] 625 mg tablet 625 mg PO QID PRN (Reason: constipation) Qty: 120 6RF Rx Instructions: Take 1 tablet by mouth two to four times daily as needed for constipation - drink plenty of water with tablets bisacodyl 5 mg tablet,delayed release (DR/EC) 5 mg PO BEDTIME 90 Days Qty: 90 1RF (DME) Aeroneb Go Nebulizer [facility] See Rx Instructions .Route Qty: 1 0RF Rx Instructions: As directed albuterol sulfate [ProAir HFA] 90 mcg/actuation HFA aerosol inhaler 2 puff inhalation Q6H PRN (Reason: shortness of breath or wheezing) 30 Days Qty: 6.7 1RF metformin 500 mg tablet 500 mg PO BID 90 Days Qty: 180 0RF (DME) blood-glucose meter [FreeStyle Lite Meter] Kit See Rx Instructions .Route Qty: 1 0RF Rx Instructions: As directed (DME) FreeStyle Test Strip See Rx Instructions .Route Qty: 100 3RF Rx Instructions: Use 1 test strip once a day (DME) lancets [FreeStyle Lancets] 28 gauge misc See Rx Instructions .Route Qty: 100 3RF Rx Instructions: Use 1 lancet once a day cyclobenzaprine 10 mg tablet 10 mg PO TID PRN (Reason: muscle spasm) Qty: 10 0RF atykhxwtkr-hnkutwmnleost-idsd [Fioricet] 50-300-40 mg capsule 1 cap PO Q6H PRN (Reason: headache) Qty: 20 0RF pantoprazole [Protonix] 40 mg tablet,delayed release (DR/EC) 40 mg PO DAILY Qty: 20 0RF ondansetron 4 mg tablet,disintegrating 4 mg PO Q8H 4 Days Qty: 12 0RF lidocaine 5 % ointment 1 appl topical DAILY 30 Days Qty: 30 6RF paroxetine HCl 40 mg tablet 40 mg PO DAILY 0RF paroxetine HCl 20 mg tablet 20 mg PO DAILY 0RF lorazepam 1 mg tablet 1 mg PO QID PRN0RF zolpidem 10 mg tablet 10 mg PO BEDTIME PRN0RF mometasone 0.1 % ointment topical 0RF topiramate 100 mg tablet 100 mg PO DAILY 0RF peg-electrolyte soln 420 gram recon soln PO 0RF meclizine 25 mg tablet PO 0RF Spiriva Respimat 1.25 mcg/actuation mist 2 puff PO QAM 0RF Advair HFA 115-21 mcg/actuation HFA aerosol inhaler 2 puff PO Q4-6H PRN0RF Otezla Starter 10 mg (4)-20 mg (4)-30 mg(19) tablets,dose pack See Rx Instructions PO PER PKG DIR 0RF Rx Instructions: PO PER PKG DIR valacyclovir [Valtrex] 500 mg tablet 500 mg PO BID PRN0RF Rx Instructions: take with onset on of symptoms, take for three days, may repeat dosing per episode prn esomeprazole magnesium 40 mg capsule,delayed release(DR/EC) 40 mg PO DAILY Qty: 90 1RF Referrals: Kayy Escobar MD [Primary Care Provider] - 1 week (as needed) Interventions: ED Discharge Assessment Last Done: 06/07/21 09:33 Discharge Date/Time: 06/07/21 09:36 Print Language: Vietnamese
[2021-06-07] MEDS: Lidocaine HCl 2 % MPF 5 ML VIAL SUBCUT (09:20)
== END 2021-06-07 09:36 | disposition home or self-care (01) ==
PROVIDERS: Emergency Provider Emergency Medicine; PCP Internal Medicine
DX: L02.416 Cutaneous abscess of left lower limb (principal); E11.9 Type 2 diabetes mellitus without complications; Z79.899 Other long term (current) drug therapy; Z79.4 Long term (current) use of insulin
CPT/HCPCS: 10060; 99283

== ENCOUNTER 2021-06-12 07:13 | Outpatient (REF) | payer OTHER, SELFPAY ==
--- NOTE | ~2021-06-12 | CT_ITS ---
EXAMINATION: CT CHEST WITHOUT CONTRAST CLINICAL INFORMATION: Post COVID-19 condition. COMPARISON: None TECHNIQUE: Multidetector volumetric CT imaging of the chest was done. Axial MIP volume rendering provided. Sagittal and coronal reformatted images were obtained. This CT examination was performed using dose optimization techniques as appropriate, variously including the following: *Automated exposure control *Adjustment of mA and/or kV according to patient size (this includes techniques or standardized protocols for targeted exams where dose is matched to indication/reason for exam; i.e. extremities or head) *Use of iterative reconstruction technique DLP: 190 mGy-cm FINDINGS: BOX FEEDER: Elevated right hemidiaphragm. LUNGS: The lungs are well expanded without acute pneumonic process. There is a 3 mm calcified nodule in the left lower lobe (axial image 219/5). No additional pulmonary nodules are seen. Minimal atelectatic changes are seen in the right upper lobe medially and in the lingula. There is no interstitial thickening, bronchiectasis or bronchial wall thickening. Mild ground-glass attenuation is seen in both lower lobes and minimal in the upper lobes, nonspecific, could be secondary to parenchymal disease. MEDIASTINUM: The heart size and the great vessels are normal caliber. The central trachea and the bronchi are widely patent. There is no pericardial effusion seen. There is a left posterior hilar calcification, likely a lymph node. No noncalcified abnormal-sized lymph nodes or mass seen. PLEURA: There is no pleural effusion. No pleural mass or thickening. AXILLAE: There are small shotty axillary lymph nodes bilaterally. UPPER ABDOMEN: Visualized liver, spleen, pancreas and bilateral adrenal glands are unremarkable. OSSEOUS STRUCTURES: No lytic or sclerotic process seen. There is mild ventral spondylosis. CT/CT chest wo con IMPRESSION: Nonspecific mild ground-glass attenuation seen in both lower lobes. Calcified left lower lobe nodule and a calcified lymph node adjacent to the posterior hilum. Question old inflammatory or granulomatous disease. Fleischner guidelines were followed.
--- NOTE | 2021-06-12 17:19 | PFT_ITS ---
INDICATION: Dyspnea. SPIROMETRY: FEV1 to FVC of 84% with an FEV1 of 2.23 L, which is 74% predicted, an FVC of 2.66 L, which is 72% predicted. No significant response to bronchodilators was noted. Maximum voluntary ventilation 58% predicted. LUNG VOLUMES: Total lung capacity 75% predicted with expiratory reserve volume of 37% predicted. DIFFUSION CAPACITY: DLCO 75% predicted. It does correct to 99%, when correcting for the alveolar volume. COMPARISONS: None. INTERPRETATION: No obstructive ventilatory defect. No significant response to bronchodilators was noted. There is a moderate decrease in maximum voluntary ventilation secondary to likely deconditioning, although cannot rule out neuromuscular conditions. The patient does have a restrictive ventilatory defect consistent mild restrictive lung disease. The patient also has a decrease in the expiratory reserve volume secondary to likely an elevated BMI that may be contributing to the decrease in the lung capacity. The patient does have a mild diffusion impairment that does correct to normal when correcting for the alveolar volume. Clinical correlation is warranted. MD TERESSA Love/MODAdolfo / [id number]
== END 2021-06-12 07:14 | disposition home or self-care (01) ==
LOC: HO.RESP 07:13
PROVIDERS: PCP Internal Medicine; Visit Provider Internal Medicine Pulmonary Disease
DX: R06.00 Dyspnea, unspecified (principal); R06.02 Shortness of breath; U09.9 Post COVID-19 condition, unspecified; J45.909 Unspecified asthma, uncomplicated; Z91.09 Other allergy status, other than to drugs and biological substances
CPT/HCPCS: 71250; 94060; 94727; 94729; 99212

== ENCOUNTER → 2021-06-18 08:46 | Outpatient (REF) | payer OTHER, SELFPAY ==
--- NOTE | 2021-06-18 08:52 | ECG_ITS ---
Test Reason : SVT Blood Pressure : / mmHG Vent. Rate : 110 BPM Atrial Rate : 110 BPM P-R Int : 138 ms QRS Dur : 092 ms QT Int : 358 ms P-R-T Axes : 069 014 028 degrees QTc Int : 484 ms Sinus tachycardia Otherwise normal ECG When compared with ECG of 30-MAR-2021 08:34, No significant change was found Referred By: Kayy Aburto Electronically Signed By:Kota Reyes
== END ==
LOC: HO.CARD 08:46
PROVIDERS: PCP Internal Medicine; Visit Provider Internal Medicine
DX: I47.1 Supraventricular tachycardia (principal)
CPT/HCPCS: 93005

== ENCOUNTER 2021-06-20 21:07 | Emergency (ER) | payer OTHER, SELFPAY ==
--- NOTE | 2021-06-20 | ECG_ITS ---
Test Reason : CP Blood Pressure : / mmHG Vent. Rate : 099 BPM Atrial Rate : 099 BPM P-R Int : 136 ms QRS Dur : 092 ms QT Int : 368 ms P-R-T Axes : 041 -04 007 degrees QTc Int : 472 ms Normal sinus rhythm Normal ECG When compared with ECG of 18-JUN-2021 08:53, No significant change was found Referred By: Generic ED Physician Electronically Signed By:JUN OCHOA MD
--- NOTE | ~2021-06-20 | CT_ITS ---
EXAMINATION: CT ABDOMEN AND PELVIS WITHOUT CONTRAST CLINICAL INFORMATION: Left upper quadrant pain COMPARISON: 08/05/2020 TECHNIQUE: Multidetector volumetric imaging was performed from the superior aspect of the liver through the pubic symphysis. Sagittal and coronal reformatted images were obtained on the technologist's workstation. This CT examination was performed using dose optimization techniques as appropriate, variously including the following: *Automated exposure control *Adjustment of mA and/or kV according to patient size (this includes techniques or standardized protocols for targeted exams where dose is matched to indication/reason for exam; i.e. extremities or head) *Use of iterative reconstruction technique DLP: 888 mGy-cm FINDINGS: LUNG BASES: The visualized lung bases are unremarkable. LIVER, GALLBLADDER, AND BILIARY TREE: Liver is normal in size, contour and morphology. Diffuse hepatic steatosis. No focal liver lesions. No biliary dilatation. Gallbladder unremarkable. PANCREAS: Unremarkable. SPLEEN: Unremarkable. ADRENAL GLANDS: Unremarkable. KIDNEYS AND URETERS: The kidneys are normal in size, shape, and attenuation. There is a 2 mm nonobstructing calculus in the lower pole of the right kidney, and a punctate calculus in the upper pole of the left kidney. There is a punctate cortical calcification in the upper pole left kidney. There is a nearly isodense cyst in the upper pole right kidney, better seen on the previous exam. No hydronephrosis or hydroureter. No perinephric stranding. BLADDER: Unremarkable. GASTROINTESTINAL TRACT: The small and large bowel are unremarkable. The appendix is unremarkable. ABDOMINAL WALL: Small fat-containing umbilical LYMPH NODES: Normal. VASCULAR: Unremarkable. PELVIC VISCERA: Hysterectomy. No adnexal abnormalities. OSSEOUS STRUCTURES: No acute or suspicious osseous abnormalities. CT/CT abdomen pelvis wo con IMPRESSION: * No acute findings within the abdomen or pelvis to explain the patient's pathology. * Hepatic steatosis. * Bilateral nonobstructive intrarenal calculi. * Hysterectomy. Fleischner guidelines were followed.
[2021-06-20 21:21] VITALS: BP 132/85; PULSE 100; RESP 14; TEMP 36.9; O2SAT 99; BMI 35.2
--- NOTE | 2021-06-20 22:30 | PC.NURSE ---
pt not in the waiting room at this time.
[2021-06-20 22:33] VITALS: BP 119/84; PULSE 88; RESP 17; O2SAT 97
--- NOTE | 2021-06-20 23:03 | ED_ITS ---
HPI - General Adult General Chief complaint: General Medical Stated complaint: chest pain Time Seen by Provider: 06/20/21 23:48 Source: patient Mode of arrival: ambulatory Limitations: no limitations History of Present Illness HPI narrative: 56-year-old female presents with nausea, vomiting, headache, 10/10 epigastric chest pain radiating to her left upper quadrant. States that she is unable to eat and drink. Onset (ago): day(s) (2) Location: chest, back and left Radiation: back Severity: severe Severity scale (1-10): 10 Quality: stabbing, sharp and constant Pain Consistency: constant Relieving factors: none Exacerbating factors: eating and movement Associated symptoms: chest pain, headaches, malaise, nausea/vomiting and shortness of breath Treatments prior to arrival: none Related Data Home Medications Medication Instructions Recorded Confirmed lorazepam 1 mg tablet 1 mg PO QID PRN 02/13/20 06/17/21 meclizine 25 mg tablet mg PO 02/13/20 06/17/21 mometasone 0.1 % topical ointment TOPICAL 02/13/20 06/17/21 paroxetine HCl 20 mg tablet 20 mg PO DAILY 02/13/20 06/17/21 paroxetine HCl 40 mg tablet 40 mg PO DAILY 02/13/20 06/17/21 peg-electrolyte solution 420 gram ml PO 02/13/20 06/17/21 oral solution topiramate 100 mg tablet 100 mg PO DAILY 02/13/20 06/17/21 zolpidem 10 mg tablet 10 mg PO BEDTIME PRN 02/13/20 06/17/21 valacyclovir 500 mg tablet 500 mg PO BID PRN tab 03/26/21 06/17/21 (Valtrex) apremilast 10 mg (4)-20 mg (4)-30 See Rx Instructions PO PER PKG DIR 05/06/21 06/17/21 mg (19) tablets in a dose pack (Otezla Starter) fluticasone propionate 115 2 puff PO Q4-6H PRN 05/06/21 06/17/21 mcg-salmeterol 21 mcg/actuation HFA inhaler (Advair HFA) tiotropium bromide 1.25 2 puff PO QAM 05/06/21 06/17/21 mcg/actuation mist for inhalation (Spiriva Respimat) Previous Rx's Medication Instructions Recorded metoprolol succinate 100 mg 100 mg PO DAILY #90 tab 03/21/20 tablet,extended release 24 hr cyclobenzaprine 10 mg tablet 10 mg PO TID PRN #10 tab 04/19/20 lidocaine 5 % topical ointment 1 appl TOPICAL DAILY 30 Days #30 g 07/01/20 iewtlgkghf-mdimtvgbpsgit-ikjzsawp 1 cap PO Q6H PRN #20 cap 08/06/20 50 mg-300 mg-40 mg capsule (Fioricet) polyethylene glycol 3350 17 17 g PO DAILY 30 Days #510 g 09/23/20 gram/dose oral powder (Miralax) calcium polycarbophil 625 mg 625 mg PO QID PRN #120 tab 09/24/20 tablet (Fiber-Lax) bisacodyl 5 mg tablet,delayed 5 mg PO BEDTIME 90 Days #90 tab 12/11/20 release albuterol sulfate 90 mcg/actuation 2 puff INHALATION Q6H PRN 30 Days 02/05/21 aerosol inhaler (ProAir HFA) #6.7 g nebulizers (Aeroneb Go Nebulizer) #1 ea 02/05/21 esomeprazole magnesium 40 mg 40 mg PO DAILY #90 cap 02/13/21 capsule,delayed release ondansetron 4 mg disintegrating 4 mg PO Q8H 4 Days #12 tab 03/30/21 tablet pantoprazole 40 mg tablet,delayed 40 mg PO DAILY #20 tab 03/30/21 release (Protonix) blood sugar diagnostic (FreeStyle #100 ea 05/14/21 Test) blood-glucose meter (FreeStyle #1 ea 05/14/21 Lite Meter) lancets 28 gauge (FreeStyle #100 ea 05/14/21 Lancets) doxycycline monohydrate 100 mg 100 mg PO BID #20 tab 06/07/21 tablet furosemide 40 mg tablet 40 mg PO DAILY 30 Days #30 tab 06/12/21 dulaglutide 0.75 mg/0.5 mL 0.75 mg (0.5 mL) SUBCUT QWEEK 90 06/17/21 subcutaneous pen injector Days #6.5 ml (Trulicity) lisinopril 10 mg tablet 10 mg PO DAILY 90 Days #90 tab 06/17/21 metformin 850 mg tablet 850 mg PO BID 90 Days #180 tab 06/17/21 rosuvastatin 10 mg tablet 10 mg PO BEDTIME 90 Days #90 tab 06/17/21 ondansetron 4 mg disintegrating 4 mg PO Q8H PRN #14 tab 06/21/21 tablet Allergies Allergy/AdvReac Type Severity Reaction Status Date / Time bee pollen [BEE STINGS] Allergy Intermediate RASH Verified 06/17/21 15:29 SWELLING PAIN FULL. phentermine Allergy Intermediate ANXIETY Verified 06/17/21 15:29 pneumococcal vaccine Allergy Intermediate Swelling Verified 06/17/21 15:29 tramadol Allergy Intermediate stomach Verified 06/17/21 15:29 upset adhesive tape [ADHESIVE TAPE] Allergy Mild RASH Verified 06/17/21 15:29 oxycodone [OXYCODONE] AdvReac Intermediate VOMITING Verified 06/17/21 15:29 Review of Systems Review of Systems: Constitutional: No Weight loss, No Fever, No Chills, No Night Sweats, No F atigue, No Malaise ENT/Mouth: No Hearing loss, No Ear Pain, No Nasal Congestion, No Sinus Pain, No Hoarseness, No sore throat, No Rhinorrhea, No Swallowing Difficulty Eyes: No Eye Pain, No Swelling, No Redness, No Foreign Body, No Discharge, No Vision Changes Cardiovascular: Positive Chest Pain, positive SOB, no Dyspnea on Exertion, No Orthopnea, No Edema, No Palpitations Respiratory: No Cough, No Sputum, No Wheezing, No Smoke Exposure, No Dyspnea Gastrointestinal: Positive Nausea, positive Vomiting, No Diarrhea, No abdominal Pain, No Hematochezia, No Melena Genitourinary: No irregular bleeding, No Dysuria, No Urinary Frequency, No Hematuria, No Urinary Incontinence, No Urgency, positive Flank Pain, No Urinary Flow Changes, No Hesitancy Musculoskeletal: No joint pain, No Myalgias, No Joint Swelling Skin: No Skin Lesions, No rash Neuro: No Weakness, No Numbness, No Paresthesias, No Loss of Consciousness, No Dizziness, No Headache Psych: No Anxiety/Panic, No Depression, No SI/HI/AH/VH Heme/Lymph: No Bruising, No Bleeding,No Lymphadenopathy Endocrine: No Polyuria, No Polydipsia, No Temperature Intolerance Yes all other systems are reviewed and are negative [facility] Past Medical History Attestation statement: The following information was validated with the patient. Source: old records reviewed Medical History Abscess Depression with anxiety Diabetes mellitus Essential hypertension GERD (gastroesophageal reflux disease) Hand numbness Herpes simplex type 2 infection Hospital discharge follow-up Impaired glucose tolerance Insomnia Left knee pain Left leg pain Migraines Mild persistent asthma Mild recurrent major depression Mixed hyperlipidemia Nausea Supraventricular tachycardia Surgical History History of cardiac radiofrequency ablation History of esophagogastroduodenoscopy (EGD) History of removal of cyst History of surgery History of total abdominal hysterectomy Hx of colonoscopy Family History Family History Father Brain cancer Mother Esophageal cancer Sister Breast cancer Paternal Uncle Diabetes Hypertension Social History Social History Household Members: Children Housing: Apartment Alcohol intake: never Patient Tobacco Use Status: Never used Tobacco e-Cigarette/Vaping Use: Never Used Second Hand Smoke Exposure: No Advance Directives: No Advance Directives Information Provided: No service: No Current occupational status: unemployed Cognitive needs: No Hearing needs: No Vision needs: No Physical Exam ED Vital Signs: Vital Signs - 24 hr 06/20/21 21:21 06/20/21 22:33 Temperature 98.5 F Pulse Rate 100 88 Respiratory Rate 14 17 Blood Pressure 132/85 119/84 Pulse Oximetry 99 97 BMI result Body Mass Index 35.2 Appearance: Alert. Oriented X3. Moderate distress. Eyes: Pupils equal, round and reactive to light. EOMI. Sclera nonicteric. ENT: Pharynx normal. Moist mucous membranes. Neck: Normal inspection. Neck supple. No JVD. CVS: Normal heart rate and rhythm. Pulses normal. Chest wall tenderness to palpation. Respiratory: No respiratory distress. Breath sounds normal. Abdomen: Soft and tenderness to the left upper quadrant. Skin: Skin warm and dry. Normal skin color. Normal skin turgor. Extremities: No lower extremity edema. Gait well-balanced well coordinated. Neuro: No motor deficit. No sensory deficit. Cranial nerves 2-12 intact. Course Course Course Narrative: 56-year-old female presents with multiple complaints including nausea, vomiting, headache, epigastric and chest pain that radiates to the left side and back that is 10/10 and not alleviated by [id number]-rbc-ymvsroe medications. States that she has had this for 2 days, pain increases on inspiration and on palpation. Has increased pain on palpation to the left upper quadrant. Will order CT scan of abdomen and pelvis. Patient did have EKG with cardiology on 06/18/2021 which was normal sinus. Stress test on 04/14/2021 indicates a pharmacological stress test without anginal symptoms, arrhythmia, normotensive response and nondiagnostic EKG for ischemia. She did report some dizziness but did not have any indication of ischemia. 06/12/2021 pulmonary function test indicated moderate degrees in maximum voluntary ventilation secondary to deconditioning versus neuromuscular conditions. Has a decrease in the expiratory reserve volume secondary to an elevated BMI that could be contributing to decreased lung capacity. 05/18/2021, transthoracic echocardiogram shows an ejection fraction of 57% with mild to moderate focal hypertrophy at the basal septum. 01:00 influenza COVID negative. Lab values are unremarkable. EKG is normal sinus. Troponins are negative. 02:12 CT scan negative for acute findings requiring emergent intervention. Plan of care is for patient to be discharged home and follow-up with primary care provider.Patient verbalized understanding of and agrees to plan of care to discharge home. Verbalized understanding of signs and symptoms indicating need for emergent intervention Medical Decision Making Differential Diagnosis Differential Diagnosis: Pancreatitis, gastritis, pneumonia, ACS Medical Records Medical records reviewed: Yes I reviewed the patient's medical records. Lab Data Lab results reviewed: Yes I reviewed the patient's lab results. Result diagrams: 06/21/21 00:17 06/21/21 00:17 Labs: Lab Results 06/21/21 06/21/21 06/21/21 Range/Units 00:17 00:17 00:17 WBC 9.8 (4.8-10.8) X10*3/uL RBC 4.95 (4.20-5.50) X10*6/uL Hgb 14.6 (12.0-16.0) g/dl Hct 43.7 (37.0-47.0) % MCV 88.3 (80.0-98.0) fL MCH 29.5 (27.0-33.0) pg MCHC 33.4 (31.0-35.0) g/dl RDW 12.7 (11.0-16.0) % Plt Count 230 (160-400) X10*3/uL MPV 9.1 L (9.4-12.3) fL Immature Gran % (Auto) 0.4 (0.0-0.4) % Neut % (Auto) 55.9 (45-73) % Lymph % (Auto) 33.5 (20-40) % Franklin % (Auto) 7.3 (2-11) % Eos % (Auto) 2.5 (0-4) % Baso % (Auto) 0.4 (0-2) % Lymph # (Auto) 3.3 (1.2-4.9) X10*3/uL Franklin # (Auto) 0.7 (0.1-1.2) X10*3/uL Eos # (Auto) 0.2 (0.0-0.4) X10*3/uL Baso # (Auto) 0.0 (0.0-0.2) X10*3/uL Abs Immat Gran (auto) 0.04 H (0.00-0.03) X10*3/uL Absolute Neuts (auto) 5.5 (2.0-8.3) x10*3/uL Absolute Nucleated RBC 0.000 (0.0-0.012) X10*3/uL Nucleated RBC % (auto) 0.0 (0.0-0.2) /100WBC Sodium 141 (135-145) mmol/L Potassium 4.0 (3.3-5.1) mmol/L Chloride 103 (96-108) mmol/L Carbon Dioxide 24 (22-29) mmol/L Anion Gap 18 (12-20) BUN 14 (9-16) mg/dL Creatinine 0.77 (0.5-1.4) mg/dL Estim Creat Clear Calc 101.3 Estimated GFR > 60 Random Glucose 155 H (60-115) mg/dL Calcium 9.8 (8.4-10.2) mg/dL Total Bilirubin 0.9 (0.0-1.0) mg/dL AST 37 H (5-31) U/L ALT 50 H (0-31) U/L Alkaline Phosphatase 88 (39-117) U/L Troponin I High Sens < 3.5 (<3.5-17.0) ng/L Total Protein 7.1 (6.5-8.0) g/dL Albumin 4.4 (3.5-5.0) g/dL Lipase 47 (8-78) U/L Influenza Type A (PCR) (Negative) Influenza Type B (PCR) (Negative) RSV RNA Qual (PCR) (Negative) SARS-CoV-2 RNA (RT-PCR) (Negative) 06/21/21 Range/Units 00:17 WBC (4.8-10.8) X10*3/uL RBC (4.20-5.50) X10*6/uL Hgb (12.0-16.0) g/dl Hct (37.0-47.0) % MCV (80.0-98.0) fL MCH (27.0-33.0) pg MCHC (31.0-35.0) g/dl RDW (11.0-16.0) % Plt Count (160-400) X10*3/uL MPV (9.4-12.3) fL Immature Gran % (Auto) (0.0-0.4) % Neut % (Auto) (45-73) % Lymph % (Auto) (20-40) % Franklin % (Auto) (2-11) % Eos % (Auto) (0-4) % Baso % (Auto) (0-2) % Lymph # (Auto) (1.2-4.9) X10*3/uL Franklin # (Auto) (0.1-1.2) X10*3/uL Eos # (Auto) (0.0-0.4) X10*3/uL Baso # (Auto) (0.0-0.2) X10*3/uL Abs Immat Gran (auto) (0.00-0.03) X10*3/uL Absolute Neuts (auto) (2.0-8.3) x10*3/uL Absolute Nucleated RBC (0.0-0.012) X10*3/uL Nucleated RBC % (auto) (0.0-0.2) /100WBC Sodium (135-145) mmol/L Potassium (3.3-5.1) mmol/L Chloride (96-108) mmol/L Carbon Dioxide (22-29) mmol/L Anion Gap (12-20) BUN (9-16) mg/dL Creatinine (0.5-1.4) mg/dL Estim Creat Clear Calc Estimated GFR Random Glucose (60-115) mg/dL Calcium (8.4-10.2) mg/dL Total Bilirubin (0.0-1.0) mg/dL AST (5-31) U/L ALT (0-31) U/L Alkaline Phosphatase (39-117) U/L Troponin I High Sens (<3.5-17.0) ng/L Total Protein (6.5-8.0) g/dL Albumin (3.5-5.0) g/dL Lipase (8-78) U/L Influenza Type A (PCR) NEGATIVE (Negative) Influenza Type B (PCR) NEGATIVE (Negative) RSV RNA Qual (PCR) NEGATIVE (Negative) SARS-CoV-2 RNA (RT-PCR) NEGATIVE (Negative) Imaging Data CT abdomen pelvis: Attestation: I personally reviewed and interpreted this imaging study as follows: Radiologist's impression: FINDINGS: LUNG BASES: The visualized lung bases are unremarkable.? LIVER, GALLBLADDER, AND BILIARY TREE: Liver is normal in size, contour and morphology. Diffuse hepatic steatosis. No focal liver lesions. No biliary dilatation. Gallbladder unremarkable.? PANCREAS: Unremarkable.? SPLEEN: Unremarkable.? ADRENAL GLANDS: Unremarkable.? KIDNEYS AND URETERS: The kidneys are normal in size, shape, and attenuation. There is a 2 mm nonobstructing calculus in the lower pole of the right kidney, and a punctate calculus in the upper pole of the left kidney. There is a punctate cortical calcification in the upper pole left kidney. There is a nearly isodense cyst in the upper pole right kidney, better seen on the previous exam. No hydronephrosis or hydroureter. No perinephric stranding. ? BLADDER: Unremarkable.? GASTROINTESTINAL TRACT: The small and large bowel are unremarkable. The appendix is unremarkable.? ABDOMINAL WALL: Small fat-containing umbilical? LYMPH NODES: Normal. VASCULAR: Unremarkable. PELVIC VISCERA: Hysterectomy. No adnexal abnormalities.? OSSEOUS STRUCTURES: No acute or suspicious osseous abnormalities.? CT/CT abdomen pelvis wo con IMPRESSION: *? No acute findings within the abdomen or pelvis to explain the patient's pathology. *? Hepatic steatosis. *? Bilateral nonobstructive intrarenal calculi. *? Hysterectomy.? ? Fleischner guidelines were followed. ECG Data Attestation: I personally reviewed and interpreted this ECG as follows: Prior ECG tracings: available for review Interpretation: Ventricular rate 99 beats per minute, AR 136, QRS 92, QT 368, QTC 472, normal sinus rhythm no indication of ST elevation or depression. 06/20/2021 time 21:21 Scores Heart Score History: -1- moderately suspicious ECG: -0- normal Age: -1- >45 - <65 Risk factory: -1- 1 or 2 risk factors Troponin: -0- < or = normal limit Score: 3 Risk: 1.7% Discharge Plan Discharge Clinical Impression: Non-cardiac chest pain, Abdominal pain, GERD (gastroesophageal reflux disease), Bilateral kidney stones Patient Disposition: Home, Self-Care Instructions: Abdominal Pain (ED), Noncardiac Chest Pain (ED), Kidney Stones (ED) Additional Instructions: You were evaluated for chest and abdominal pain. EKG is normal sinus rhythm. Troponins are negative. Abdomen pelvis CT scan is negative for acute findings requiring emergent intervention. CT scan does show bilateral kidney stones without obstruction or inflammation to the kidney. Please follow-up with primary care physician for further evaluation. Thank you for choosing this emergency department for evaluation. Please follow-up with primary care physician as needed. Return to the emergency department for any new, concerning, or worsening symptoms. Prescriptions: New ondansetron 4 mg tablet,disintegrating 4 mg PO Q8H PRN (Reason: nausea and vomiting) Qty: 14 0RF No Action metoprolol succinate 100 mg tablet extended release 24 hr 100 mg PO DAILY Qty: 90 3RF polyethylene glycol 3350 [Miralax] 17 gram/dose powder 17 g PO DAILY 30 Days Qty: 510 1RF calcium polycarbophil [Fiber-Lax] 625 mg tablet 625 mg PO QID PRN (Reason: constipation) Qty: 120 6RF Rx Instructions: Take 1 tablet by mouth two to four times daily as needed for constipation - drink plenty of water with tablets bisacodyl 5 mg tablet,delayed release (DR/EC) 5 mg PO BEDTIME 90 Days Qty: 90 1RF (DME) Aeroneb Go Nebulizer Misc See Rx Instructions .Route Qty: 1 0RF Rx Instructions: As directed albuterol sulfate [ProAir HFA] 90 mcg/actuation HFA aerosol inhaler 2 puff inhalation Q6H PRN (Reason: shortness of breath or wheezing) 30 Days Qty: 6.7 1RF (DME) blood-glucose meter [FreeStyle Lite Meter] Kit See Rx Instructions .Route Qty: 1 0RF Rx Instructions: As directed (DME) FreeStyle Test Strip See Rx Instructions .Route Qty: 100 3RF Rx Instructions: Use 1 test strip once a day (DME) lancets [FreeStyle Lancets] 28 gauge misc See Rx Instructions .Route Qty: 100 3RF Rx Instructions: Use 1 lancet once a day cyclobenzaprine 10 mg tablet 10 mg PO TID PRN (Reason: muscle spasm) Qty: 10 0RF ipaqwnptlf-agznwuqynyeks-nake [Fioricet] 50-300-40 mg capsule 1 cap PO Q6H PRN (Reason: headache) Qty: 20 0RF pantoprazole [Protonix] 40 mg tablet,delayed release (DR/EC) 40 mg PO DAILY Qty: 20 0RF ondansetron 4 mg tablet,disintegrating 4 mg PO Q8H 4 Days Qty: 12 0RF doxycycline monohydrate 100 mg tablet 100 mg PO BID Qty: 20 0RF lidocaine 5 % ointment 1 appl topical DAILY 30 Days Qty: 30 6RF paroxetine HCl 40 mg tablet 40 mg PO DAILY 0RF paroxetine HCl 20 mg tablet 20 mg PO DAILY 0RF lorazepam 1 mg tablet 1 mg PO QID PRN0RF zolpidem 10 mg tablet 10 mg PO BEDTIME PRN0RF mometasone 0.1 % ointment topical 0RF topiramate 100 mg tablet 100 mg PO DAILY 0RF peg-electrolyte soln 420 gram recon soln PO 0RF meclizine 25 mg tablet PO 0RF Spiriva Respimat 1.25 mcg/actuation mist 2 puff PO QAM 0RF Advair HFA 115-21 mcg/actuation HFA aerosol inhaler 2 puff PO Q4-6H PRN0RF Otezla Starter 10 mg (4)-20 mg (4)-30 mg(19) tablets,dose pack See Rx Instructions PO PER PKG DIR 0RF Rx Instructions: PO PER PKG DIR lisinopril 10 mg tablet 10 mg PO DAILY 90 Days Qty: 90 1RF metformin 850 mg tablet 850 mg PO BID 90 Days Qty: 180 1RF Trulicity 0.75 mg/0.5 mL pen injector 0.75 mg subcut QWEEK 90 Days Qty: 6.5 1RF rosuvastatin 10 mg tablet 10 mg PO BEDTIME 90 Days Qty: 90 1RF valacyclovir [Valtrex] 500 mg tablet 500 mg PO BID PRN0RF Rx Instructions: take with onset on of symptoms, take for three days, may repeat dosing per episode prn esomeprazole magnesium 40 mg capsule,delayed release(DR/EC) 40 mg PO DAILY Qty: 90 1RF furosemide 40 mg tablet 40 mg PO DAILY 30 Days Qty: 30 3RF
[2021-06-21] MEDS: ondansetron HCL 4 MG/2 ML VIAL IVPUSH (00:12)
[2021-06-21] MEDS: Morphine Sulfate 4 MG/ML CARTRIDGE IVPUSH (00:12)
[2021-06-21 00:21] LABS: Basophils Percent Auto 0.4 % (0-2); Eosinophils Absolute Auto 0.2 X10*3/uL (0.0-0.4); Eosinophils Percent Auto 2.5 % (0-4); Hematocrit 43.7 % (37.0-47.0); Hemoglobin 14.6 g/dl (12.0-16.0); Imm Gran Abs Auto 0.04 X10*3/uL (0.00-0.03); Imm Gran Pct Auto 0.4 % (0.0-0.4); Lymphocytes Absolute Auto 3.3 X10*3/uL (1.2-4.9); Lymphocytes Percent Auto 33.5 % (20-40); MANUAL DIFF FLAG NO; Mean Corpuscular HGB Conc 33.4 g/dl (31.0-35.0); Mean Corpuscular Hemoglobin 29.5 pg (27.0-33.0); Mean Corpuscular Volume 88.3 fL (80.0-98.0); Mean Platelet Volume 9.1 fL (9.4-12.3); Monocytes Absolute Auto 0.7 X10*3/uL (0.1-1.2); Monocytes Percent Auto 7.3 % (2-11); Neutrophils Absolute Auto 5.5 x10*3/uL (2.0-8.3); Neutrophils Percent Auto 55.9 % (45-73); Platelet Count 230 X10*3/uL (160-400); Red Blood Count 4.95 X10*6/uL (4.20-5.50); Red Cell Distribution Width 12.7 % (11.0-16.0); White Blood Count 9.8 X10*3/uL (4.8-10.8)
[2021-06-21 00:35] LABS: Alanine Aminotransferase 50 U/L (0-31); Albumin Level 4.4 g/dL (3.5-5.0); Alkaline Phosphatase 88 U/L (39-117); Anion Gap 18 (12-20); Aspartate Amino Transferase 37 U/L (5-31); Bilirubin Total 0.9 mg/dL (0.0-1.0); Blood Urea Nitrogen 14 mg/dL (9-16); Calcium 9.8 mg/dL (8.4-10.2); Carbon Dioxide 24 mmol/L (22-29); Chloride 103 mmol/L (96-108); Creatinine Clr Calc Pharmacy 101.3; Estimated Glomerular Filt Rate > 60; Glucose Random 155 mg/dL (60-115); Lipase 47 U/L (8-78); Sodium 141 mmol/L (135-145); Total Protein 7.1 g/dL (6.5-8.0)
[2021-06-21 00:40] LABS: Troponin-I High Sensitivity < 3.5 ng/L (<3.5-17.0)
[2021-06-21 00:58] LABS: Influenza A PCR NEGATIVE (Negative); Influenza B PCR NEGATIVE (Negative); Resp Syncy Virus RNA Qual PCR NEGATIVE (Negative); SARS COV2 PCR INHOUSE NEGATIVE (Negative)
[2021-06-21] MEDS: Magnesium Hydrox/Alum Hydrox 30 ML ORAL.SUSP PO (02:08)
[2021-06-21] MEDS: Lidocaine HCl Viscous 2 % 15 ML SOLUTION MUCOUS MEM (02:08)
[2021-06-21 02:15] VITALS: BP 107/78; PULSE 87; RESP 19; O2SAT 96
== END 2021-06-21 02:33 | disposition home or self-care (01) ==
PROVIDERS: Nurse Practitioner Family; Emergency Provider Emergency Medicine Emergency Medical Services; PCP Internal Medicine
DX: R07.89 Other chest pain (principal); R10.13 Epigastric pain; K21.9 Gastro-esophageal reflux disease without esophagitis; N20.0 Calculus of kidney; E11.9 Type 2 diabetes mellitus without complications; I10 Essential (primary) hypertension; Z20.822 Contact with and (suspected) exposure to COVID-19
CPT/HCPCS: 0241U; 36415; 74176; 80053; 83690; 84484; 85025; 93005; 96374; 96375; 99284; J2270; J2405

== ENCOUNTER 2021-07-02 08:47 | Outpatient (REF) | payer OTHER, SELFPAY ==
--- NOTE | 2021-07-02 08:51 | EMG_ITS ---
Bilateral median and ulnar motor and sensory studies were performed. Bilateral radial sensory studies were performed and paraspinal muscles were tested with a needle. IMPRESSION: Mild bilateral median neuropathy across carpal tunnel. MD AHSAN Nunn/SONIA / [id number]
== END 2021-07-02 08:48 | disposition home or self-care (01) ==
LOC: HO.NEURO 08:47
PROVIDERS: PCP Internal Medicine; Visit Provider Internal Medicine
DX: R20.0 Anesthesia of skin (principal)
CPT/HCPCS: 95886; 95911

== ENCOUNTER 2021-07-18 11:50 | Emergency (ER) | payer OTHER, SELFPAY ==
--- NOTE | ~2021-07-18 | CT_ITS ---
EXAMINATION: CT HEAD WITHOUT CONTRAST CLINICAL INFORMATION: Persistent dizziness. Weakness. COMPARISON: CT head 08/05/2020 and 04/19/2020. TECHNIQUE: Contiguous axial imaging was performed from the skull base to vertex without intravenous administration of contrast. This CT examination was performed using dose optimization techniques as appropriate, variously including the following: *Automated exposure control *Adjustment of mA and/or kV according to patient size (this includes techniques or standardized protocols for targeted exams where dose is matched to indication/reason for exam; i.e. extremities or head) *Use of iterative reconstruction technique DLP: 725 mGy-cm FINDINGS: There is no evidence of acute intracranial hemorrhage or territorial infarction. No abnormal mass effect or midline shift is seen. Godinez to white matter differentiation is well preserved. No extra-axial fluid collections are identified. The ventricles are normal in size. There is no abnormal attenuation within the brain parenchyma. The osseous structures and soft tissues are normal. The mastoid air cells and visualized portions of the paranasal sinuses are well aerated. Small mucous retention cyst is noted along the anterior wall of the right maxillary sinus. CT/CT head/brain wo con IMPRESSION: No acute intracranial pathology.
--- NOTE | ~2021-07-18 | XR_ITS ---
EXAMINATION: XR CHEST CLINICAL INFORMATION: Dizziness COMPARISON: Chest CT June 12, 2021 and chest x-ray January 23, 2021 TECHNIQUE: Frontal view of the chest was obtained. FINDINGS: Cardiac silhouette is normal in size. The lungs are adequately aerated. There is similar asymmetric elevation of right hemidiaphragm. There is a lobar consolidation. No pleural effusion or pneumothorax. XR/XR chest 1V IMPRESSION: No acute pulmonary pathology.
--- NOTE | 2021-07-18 11:56 | ECG_ITS ---
Test Reason : DIZZY,NUMBNESS Blood Pressure : / mmHG Vent. Rate : 108 BPM Atrial Rate : 108 BPM P-R Int : 140 ms QRS Dur : 086 ms QT Int : 348 ms P-R-T Axes : 047 -01 019 degrees QTc Int : 466 ms Sinus tachycardia Otherwise normal ECG When compared with ECG of 20-JUN-2021 21:21, No significant change was found Referred By: Generic ED Physician Electronically Signed By:JUN OCHOA MD
[2021-07-18 11:58] VITALS: BP 126/89; PULSE 111; RESP 19; TEMP 36; O2SAT 98; BMI 35.4
[2021-07-18 12:13] LABS: MANUAL DIFF FLAG NO
[2021-07-18 12:16] LABS: Basophils Absolute Auto 0.1 X10*3/uL (0.0-0.2); Basophils Percent Auto 0.6 % (0-2); Eosinophils Absolute Auto 0.4 X10*3/uL (0.0-0.4); Eosinophils Percent Auto 3.8 % (0-4); Hematocrit 44.8 % (37.0-47.0); Hemoglobin 15.2 g/dl (12.0-16.0); Imm Gran Abs Auto 0.04 X10*3/uL (0.00-0.03); Imm Gran Pct Auto 0.4 % (0.0-0.4); Lymphocytes Absolute Auto 3.4 X10*3/uL (1.2-4.9); Lymphocytes Percent Auto 33.6 % (20-40); Mean Corpuscular HGB Conc 33.9 g/dl (31.0-35.0); Mean Corpuscular Hemoglobin 29.5 pg (27.0-33.0); Mean Corpuscular Volume 86.8 fL (80.0-98.0); Mean Platelet Volume 8.8 fL (9.4-12.3); Monocytes Absolute Auto 0.7 X10*3/uL (0.1-1.2); Monocytes Percent Auto 7.2 % (2-11); Neutrophils Absolute Auto 5.5 x10*3/uL (2.0-8.3); Neutrophils Percent Auto 54.4 % (45-73); Platelet Count 303 X10*3/uL (160-400); Red Blood Count 5.16 X10*6/uL (4.20-5.50); Red Cell Distribution Width 13.2 % (11.0-16.0)
[2021-07-18 12:41] LABS: Anion Gap 20 (12-20); Blood Urea Nitrogen 15 mg/dL (9-16); Calcium 10.3 mg/dL (8.4-10.2); Carbon Dioxide 23 mmol/L (22-29); Chloride 100 mmol/L (96-108); Creatinine Clr Calc Pharmacy 75.1; Estimated Glomerular Filt Rate 55; Glucose Random 150 mg/dL (60-115); Potassium 4.3 mmol/L (3.3-5.1); Sodium 139 mmol/L (135-145)
[2021-07-18 12:48] LABS: Troponin-I High Sensitivity < 3.5 ng/L (<3.5-17.0)
[2021-07-18 14:13] LABS: Alanine Aminotransferase 35 U/L (0-31); Albumin Level 4.7 g/dL (3.5-5.0); Alkaline Phosphatase 94 U/L (39-117); Aspartate Amino Transferase 24 U/L (5-31); Bilirubin Direct 0.4 mg/dL (0.0-0.5); Bilirubin Total 0.9 mg/dL (0.0-1.0); Magnesium 1.3 mg/dL (1.6-2.6); Total Protein 7.7 g/dL (6.5-8.0)
[2021-07-18 15:46] VITALS: BP 128/86; PULSE 94; RESP 18; TEMP 36.7; O2SAT 98
--- NOTE | 2021-07-18 16:01 | ED_ITS ---
HPI - Dizziness General Chief Complaint: Dizziness <Dayana Rodriguez CNP - Last Filed: 07/18/21 19:40> Stated Complaint: dizzy hands numb <Dayana Rodriguez CNP - Last Filed: 07/18/21 19:40> Time Seen by Provider: 07/18/21 13:47 <Dayana Rodriguez CNP - Last Filed: 07/18/21 19:40> Source: patient <Dayana Rodriguez CNP - Last Filed: 07/18/21 19:40> Mode of arrival: ambulatory <Dayana Rodriguez CNP - Last Filed: 07/18/21 19:40> Limitations: language barrier (Finnish-speaking medical genetics director utilized) <Dayana Rodriguez CNP - Last Filed: 07/18/21 19:40> History of Present Illness HPI Narrative: Patient presents to the emergency department with complaints of dizziness and numbness/pain in her extremities. Dizziness since March 2021 after having COVID, intermittent, worse with position changing, she feels unsteady, like her legs are heavy, bilateral hands get very cold and her whole body feels tense, intermittent blurred vision with this. When the dizziness comes on she feels a posterior headache. Over the past 3 days symptoms have been occurring more frequently and lasting for longer periods. Denies fevers, chills, ear pain, ringing of the ears, upper respiratory symptoms, neck pain, neck stiffness, chest pain, palpitations, shortness of breath, difficulty breathing, nausea, vomiting, abdominal pain, dysuria, urinary frequency, diarrhea, constipation. Denies any recent falls, head injuries, syncope or near syncope. <Dayana Rodriguez CNP - Last Filed: 07/18/21 19:40> Related Data Home Medications: Home Medications Medication Instructions Recorded Confirmed lorazepam 1 mg tablet 1 mg PO QID PRN 02/13/20 06/17/21 meclizine 25 mg tablet mg PO 02/13/20 06/17/21 mometasone 0.1 % topical ointment TOPICAL 02/13/20 06/17/21 paroxetine HCl 20 mg tablet 20 mg PO DAILY 02/13/20 06/17/21 paroxetine HCl 40 mg tablet 40 mg PO DAILY 02/13/20 06/17/21 peg-electrolyte solution 420 gram ml PO 02/13/20 06/17/21 oral solution topiramate 100 mg tablet 100 mg PO DAILY 02/13/20 06/17/21 zolpidem 10 mg tablet 10 mg PO BEDTIME PRN 02/13/20 06/17/21 valacyclovir 500 mg tablet 500 mg PO BID PRN tab 03/26/21 06/17/21 (Valtrex) apremilast 10 mg (4)-20 mg (4)-30 See Rx Instructions PO PER PKG DIR 05/06/21 06/17/21 mg (19) tablets in a dose pack (Otezla Starter) fluticasone propionate 115 2 puff PO Q4-6H PRN 05/06/21 06/17/21 mcg-salmeterol 21 mcg/actuation HFA inhaler (Advair HFA) tiotropium bromide 1.25 2 puff PO QAM 05/06/21 06/17/21 mcg/actuation mist for inhalation (Spiriva Respimat) Previous Rx's Medication Instructions Recorded metoprolol succinate 100 mg 100 mg PO DAILY #90 tab 03/21/20 tablet,extended release 24 hr cyclobenzaprine 10 mg tablet 10 mg PO TID PRN #10 tab 04/19/20 lidocaine 5 % topical ointment 1 appl TOPICAL DAILY 30 Days #30 g 07/01/20 tpegzqmfxp-ofzifaaxnnmsz-ougzrfqa 1 cap PO Q6H PRN #20 cap 08/06/20 50 mg-300 mg-40 mg capsule (Fioricet) polyethylene glycol 3350 17 17 g PO DAILY 30 Days #510 g 09/23/20 gram/dose oral powder (Miralax) calcium polycarbophil 625 mg 625 mg PO QID PRN #120 tab 09/24/20 tablet (Fiber-Lax) bisacodyl 5 mg tablet,delayed 5 mg PO BEDTIME 90 Days #90 tab 12/11/20 release albuterol sulfate 90 mcg/actuation 2 puff INHALATION Q6H PRN 30 Days 02/05/21 aerosol inhaler (ProAir HFA) #6.7 g nebulizers (AerKula Causesb Go Nebulizer) #1 ea 02/05/21 esomeprazole magnesium 40 mg 40 mg PO DAILY #90 cap 02/13/21 capsule,delayed release ondansetron 4 mg disintegrating 4 mg PO Q8H 4 Days #12 tab 03/30/21 tablet pantoprazole 40 mg tablet,delayed 40 mg PO DAILY #20 tab 03/30/21 release (Protonix) blood-glucose meter (FreeStyle #1 ea 05/14/21 Lite Meter) doxycycline monohydrate 100 mg 100 mg PO BID #20 tab 06/07/21 tablet furosemide 40 mg tablet 40 mg PO DAILY 30 Days #30 tab 06/12/21 dulaglutide 0.75 mg/0.5 mL 0.75 mg (0.5 mL) SUBCUT QWEEK 90 06/17/21 subcutaneous pen injector Days #6.5 ml (Trulicity) lisinopril 10 mg tablet 10 mg PO DAILY 90 Days #90 tab 06/17/21 metformin 850 mg tablet 850 mg PO BID 90 Days #180 tab 06/17/21 rosuvastatin 10 mg tablet 10 mg PO BEDTIME 90 Days #90 tab 06/17/21 ondansetron 4 mg disintegrating 4 mg PO Q8H PRN #14 tab 06/21/21 tablet blood sugar diagnostic (FreeStyle #100 ea 07/03/21 Test) lancets 28 gauge (FreeStyle #100 ea 07/03/21 Lancets) magnesium oxide 400 mg PO BID 7 Days #14 cap 07/18/21 meclizine 25 mg tablet 25 mg PO BID PRN #10 tab 07/18/21 ondansetron 4 mg disintegrating 4 mg PO Q8H PRN 4 Days tab 07/18/21 tablet <Dayana Rodriguez CNP - Last Filed: 07/18/21 19:40> Allergies/Adverse Reactions: Allergies Allergy/AdvReac Type Severity Reaction Status Date / Time bee pollen [BEE STINGS] Allergy Intermediate RASH Verified 07/18/21 12:00 SWELLING PAIN FULL. phentermine Allergy Intermediate ANXIETY Verified 07/18/21 12:00 pneumococcal vaccine Allergy Intermediate Swelling Verified 07/18/21 12:00 tramadol Allergy Intermediate stomach Verified 07/18/21 12:00 upset adhesive tape [ADHESIVE TAPE] Allergy Mild RASH Verified 07/18/21 12:00 oxycodone [OXYCODONE] AdvReac Intermediate VOMITING Verified 07/18/21 12:00 <Dayana Rodriguez CNP - Last Filed: 07/18/21 19:40> Review of Systems Review of Systems: Constitutional: No weight loss. No fever. No chills. No weakness. No fatigue. Eye: No swelling. No redness. ENT: No sore throat. No rhinorrhea. No nasal congestion. No sore throat. No difficulty swallowing. Skin: No rash. No itching. Cardiovascular: No chest pain. No chest pressure. No palpitations. No pedal e maday. Respiratory: No shortness of breath. No cough. No sputum production. Gastrointestinal: No anorexia. No nausea. No vomiting. No diarrhea. No abdominal pain. No blood in stool. Genitourinary: No burning micturition. No urinary frequency. No incontinence. Neurologic: Positive intermittent headache. Positive intermittent dizziness. No pre-syncope/ syncope. No unilateral weakness. No ataxia. No numbness. No ti ngling. No change in bowel or bladder control. Musculoskeletal: No muscle pain. No back pain. No joint pain. No stiffness. Hematologic: No bleeding. No bruising. Endocrine: No polyuria. No polydipsia. <Dayana Rodriguez CNP - Last Filed: 07/18/21 19:40> Yes all other systems are reviewed and are negative <Dayana Rodriguez CNP - Last Filed: 07/18/21 19:40> COUNTS INCLUDE 234 BEDS AT THE [facility] Past Medical History Attestation statement: The following information was validated with the patient. <Dayana Rodriguez CNP - Last Filed: 07/18/21 19:40> Source: old records reviewed <Dayana Rodriguez CNP - Last Filed: 07/18/21 19:40> Medical History: Medical History Abscess Depression with anxiety Diabetes mellitus Essential hypertension GERD (gastroesophageal reflux disease) Hand numbness Herpes simplex type 2 infection Hospital discharge follow-up Impaired glucose tolerance Insomnia Left knee pain Left leg pain Migraines Mild persistent asthma Mild recurrent major depression Mixed hyperlipidemia Nausea Supraventricular tachycardia <Dayana Rodriguez CNP - Last Filed: 07/18/21 19:40> Surgical History: Surgical History History of cardiac radiofrequency ablation History of esophagogastroduodenoscopy (EGD) History of removal of cyst History of surgery History of total abdominal hysterectomy Hx of colonoscopy <Dayana Rodriguez CNP - Last Filed: 07/18/21 19:40> Family History Family History: Family History Father Brain cancer Mother Esophageal cancer Sister Breast cancer Paternal Uncle Diabetes Hypertension <Dayana Rodriguez CNP - Last Filed: 07/18/21 19:40> Social History Social History: Social History Household Members: Children Housing: Apartment Alcohol intake: never Patient Tobacco Use Status: Never used Tobacco e-Cigarette/Vaping Use: Never Used Second Hand Smoke Exposure: No Advance Directives: No Advance Directives Information Provided: No service: No Current occupational status: unemployed Cognitive needs: No Hearing needs: No Vision needs: No <Dayana Rodriguez CNP - Last Filed: 07/18/21 19:40> Physical Exam Vital Signs: Vital Signs: Last Vital Signs Temp 98.1 F 07/18/21 15:46 Pulse 86 07/18/21 20:17 Resp 07/18/21 20:17 BP 127/83 07/18/21 20:17 Pulse Ox 99 07/18/21 20:17 BMI result Body Mass Index 35.4 Vital signs have been reviewed as normal and appeared to be correct. Blood pres sure normal.? Heart rate normal.? Respiration rate normal. Temperature normal.? Oxygen saturation normal. <Dayana Rodriguez CNP - Last Filed: 07/18/21 19:40> Vital Signs: Last Vital Signs Temp 98.1 F 07/18/21 15:46 Pulse 86 07/18/21 20:17 Resp 07/18/21 20:17 BP 127/83 07/18/21 20:17 Pulse Ox 99 07/18/21 20:17 BMI result Body Mass Index 35.4 <MARLENY Dominguez - Last Filed: 07/18/21 21:53> Appearance: Alert.?Oriented to person, place and time. No acute distress.?Normal affect. Eyes: Pupils equal, round and reactive to light.?EOMi. No Nystagmus ENT: Pharynx normal.??TM normal bilaterally Neck: Normal inspection.? Neck supple.??Full AROM to neck CVS: Heart sounds normal. Normal heart rate and rhythm.? Pulses normal.?? Respiratory: No respiratory distress.? Lung sounds clear to auscultation bilaterally?? Abdomen: Soft and non-tender. Normoactive bowel sounds. Skin: Skin warm and dry.? Normal skin color.? Extremities: No lower extremity edema.? Neuro: Moves all extremities spontaneously. Sensation intact bilaterally. CN II- XII intact. No focal neuro deficits. Ambulates with normal steady gait. Tremor to bilateral upper extremities <Dayana Rodriguez CNP - Last Filed: 07/18/21 19:40> Course Course Course Narrative: Patient is a 56-year-old female with a past medical history of depression, anxiety, diabetes mellitus, hypertension, GERD, migraines, mild persistent asthma, SVT. Presenting to the emergency department for evaluation of dizziness with numbness and pain in her extremities. Dizziness has been positional an ongoing since March. But she is concerned about it being worse over the past 3 days. Dizziness exacerbated with rapid head movement. labs obtained a triage reveal overall unremarkable CBC, overall unremarkable CMP. Magnesium was found to be low at 1.3, patient received magnesium IV sulfate, patient does have some mild tremors to bilateral hands, history is not consistent with episodes of convulsions, confusion, no EKG changes, potassium levels are normal. Will obtain orthostatic vital signs, give 1 L IV fluids, and meclizine 25 mg p.o. <Dayana Rodriguez CNP - Last Filed: 07/18/21 19:40> Reevaluation(s) Reevaluation #1: CT of the head reveals no acute intracranial pathology. Orthostatics are negative. Reports improvement in her symptoms after receiving IV fluids and meclizine. Dizziness seems most consistent with vertigo. <Dayana Rodriguez CNP - Last Filed: 07/18/21 19:40> Time: 18:12 <Dayana Rodriguez CNP - Last Filed: 07/18/21 19:40> Reevaluation #2: Patient got out of bed and ambulated to the bathroom, did have dizziness and then episode of vomiting. [place] she was unable to walk back from the bathroom. Patient only received 100 mL of initial 1 L normal saline, will continue to give IV bolus in addition to Zofran 4 mg IV, additional meclizine 25 mg, Benadryl 25 mg. Patient is able to tolerate ambulation afterwards, patient will be discharged home, discussed this plan of care with patient, outpatient follow-up with her primary care provider in 1-3 days, oral supplementation of magnesium, discussed reasons that she would need to return back to the emergency department. <Dayana Rodriguez CNP - Last Filed: 07/18/21 19:40> Time: 19:01 <Dayana Rodriguez CNP - Last Filed: 07/18/21 19:40> Reevaluation #3: Went over and evaluated the patient personally, normal qfuroi-ta-dfto, nlvn-qq-cpss, steady tandem gait. Patient was still complaining of vague dizziness she was given Ativan with significant improvement. At this time patient telling me she feels much better and would like to go home. I feel comfortable with plan. Patient will be discharged home likely vertigo unlikely posterior stroke. <MARLENY Dominguez - Last Filed: 07/18/21 21:53> Time: 21:52 <MARLENY Dominguez - Last Filed: 07/18/21 21:53> MDM - Dizziness Medical Records Attestation: I reviewed the patient's medical records. <Dayana Rodriguez CNP - Last Filed: 07/18/21 19:40> Lab Data Attestation: I reviewed the patient's lab results. <Dayana Rodriguez CNP - Last Filed: 07/18/21 19:40> Result diagrams: : 07/18/21 12:09 07/18/21 12:09 <Dayana Rodriguez CNP - Last Filed: 07/18/21 19:40> Labs: Lab Results 07/18/21 07/18/21 07/18/21 Range/Units 12:09 12:09 12:09 WBC 10.0 (4.8-10.8) X10*3/uL RBC 5.16 (4.20-5.50) X10*6/uL Hgb 15.2 (12.0-16.0) g/dl Hct 44.8 (37.0-47.0) % MCV 86.8 (80.0-98.0) fL MCH 29.5 (27.0-33.0) pg MCHC 33.9 (31.0-35.0) g/dl RDW 13.2 (11.0-16.0) % Plt Count 303 D (160-400) X10*3/uL MPV 8.8 L (9.4-12.3) fL Immature Gran % (Auto) 0.4 (0.0-0.4) % Neut % (Auto) 54.4 (45-73) % Lymph % (Auto) 33.6 (20-40) % [place] % (Auto) 7.2 (2-11) % Eos % (Auto) 3.8 (0-4) % Baso % (Auto) 0.6 (0-2) % Lymph # (Auto) 3.4 (1.2-4.9) X10*3/uL [place] # (Auto) 0.7 (0.1-1.2) X10*3/uL Eos # (Auto) 0.4 (0.0-0.4) X10*3/uL Baso # (Auto) 0.1 (0.0-0.2) X10*3/uL Abs Immat Gran (auto) 0.04 H (0.00-0.03) X10*3/uL Absolute Neuts (auto) 5.5 (2.0-8.3) x10*3/uL Absolute Nucleated RBC 0.000 (0.0-0.012) X10*3/uL Nucleated RBC % (auto) 0.0 (0.0-0.2) /100WBC Sodium 139 (135-145) mmol/L Potassium 4.3 (3.3-5.1) mmol/L Chloride 100 (96-108) mmol/L Carbon Dioxide 23 (22-29) mmol/L Anion Gap 20 (12-20) BUN 15 (9-16) mg/dL Creatinine 1.04 (0.5-1.4) mg/dL Estim Creat Clear Calc 75.1 Estimated GFR 55 Random Glucose 150 H (60-115) mg/dL Calcium 10.3 H (8.4-10.2) mg/dL Magnesium 1.3 L* (1.6-2.6) mg/dL Total Bilirubin 0.9 (0.0-1.0) mg/dL Direct Bilirubin 0.4 (0.0-0.5) mg/dL AST 24 (5-31) U/L ALT 35 H (0-31) U/L Alkaline Phosphatase 94 (39-117) U/L Troponin I High Sens < 3.5 (<3.5-17.0) ng/L Total Protein 7.7 (6.5-8.0) g/dL Albumin 4.7 (3.5-5.0) g/dL <Dayana Rodriguez CNP - Last Filed: 07/18/21 19:40> Lab Results 07/18/21 07/18/21 07/18/21 Range/Units 12:09 12:09 12:09 WBC 10.0 (4.8-10.8) X10*3/uL RBC 5.16 (4.20-5.50) X10*6/uL Hgb 15.2 (12.0-16.0) g/dl Hct 44.8 (37.0-47.0) % MCV 86.8 (80.0-98.0) fL MCH 29.5 (27.0-33.0) pg MCHC 33.9 (31.0-35.0) g/dl RDW 13.2 (11.0-16.0) % Plt Count 303 D (160-400) X10*3/uL MPV 8.8 L (9.4-12.3) fL Immature Gran % (Auto) 0.4 (0.0-0.4) % Neut % (Auto) 54.4 (45-73) % Lymph % (Auto) 33.6 (20-40) % [place]ward % (Auto) 7.2 (2-11) % Eos % (Auto) 3.8 (0-4) % Baso % (Auto) 0.6 (0-2) % Lymph # (Auto) 3.4 (1.2-4.9) X10*3/uL [place] # (Auto) 0.7 (0.1-1.2) X10*3/uL Eos # (Auto) 0.4 (0.0-0.4) X10*3/uL Baso # (Auto) 0.1 (0.0-0.2) X10*3/uL Abs Immat Gran (auto) 0.04 H (0.00-0.03) X10*3/uL Absolute Neuts (auto) 5.5 (2.0-8.3) x10*3/uL Absolute Nucleated RBC 0.000 (0.0-0.012) X10*3/uL Nucleated RBC % (auto) 0.0 (0.0-0.2) /100WBC Sodium 139 (135-145) mmol/L Potassium 4.3 (3.3-5.1) mmol/L Chloride 100 (96-108) mmol/L Carbon Dioxide 23 (22-29) mmol/L Anion Gap 20 (12-20) BUN 15 (9-16) mg/dL Creatinine 1.04 (0.5-1.4) mg/dL Estim Creat Clear Calc 75.1 Estimated GFR 55 Random Glucose 150 H (60-115) mg/dL Calcium 10.3 H (8.4-10.2) mg/dL Magnesium 1.3 L* (1.6-2.6) mg/dL Total Bilirubin 0.9 (0.0-1.0) mg/dL Direct Bilirubin 0.4 (0.0-0.5) mg/dL AST 24 (5-31) U/L ALT 35 H (0-31) U/L Alkaline Phosphatase 94 (39-117) U/L Troponin I High Sens < 3.5 (<3.5-17.0) ng/L Total Protein 7.7 (6.5-8.0) g/dL Albumin 4.7 (3.5-5.0) g/dL <MARLENY Dominguez - Last Filed: 07/18/21 21:53> Imaging Data Chest x-ray: Radiologist's impression: XR/XR chest 1V IMPRESSION: No acute pulmonary pathology. <Dayana Rodriguez CNP - Last Filed: 07/18/21 19:40> CT scan - head: Radiologist's impression: FINDINGS: There is no evidence of acute intracranial hemorrhage or territorial infarction. No abnormal mass effect or midline shift is seen. Godinez to white matter differentiation is well preserved. No extra-axial fluid collections are identified. The ventricles are normal in size. There is no abnormal attenuation within the brain parenchyma. The osseous structures and soft tissues are normal. The mastoid air cells and visualized portions of the paranasal sinuses are well aerated. Small mucous retention cyst is noted along the anterior wall of the right maxillary sinus. ? CT/CT head/brain wo con IMPRESSION: No acute intracranial pathology. <Dayana Rodriguez CNP - Last Filed: 07/18/21 19:40> ECG Data Attestation: I personally reviewed and interpreted this ECG as follows: <Dayana Rodriguez CNP - Last Filed: 07/18/21 19:40> ECG interpretation date: 07/18/21 <Dayana Rodriguez CNP - Last Filed: 07/18/21 19:40> ECG interpretation time: 16:33 <Dayana Rodriguez CNP - Last Filed: 07/18/21 19:40> Prior ECG tracings: available for review <Dayana Rodriguez CNP - Last Filed: 07/18/21 19:40> Interpretation: Rate: 108 Rhythm:? Sinus tachycardia [place]:? Normal Normal P waves.? Normal JOSE ENRIQUE.?? Normal QRS complex.?? ST T wave :??No ST elevation, no ST depression, no T-wave diversion qTC: 466 prior studies:? June 2021 The study has been interpreted contemporaneously by me. <Dayana Rodriguez CNP - Last Filed: 07/18/21 19:40> Discharge Plan Discharge Clinical Impression: Vertigo <Dayana Rodriguez CNP - Last Filed: 07/18/21 19:40> Patient Disposition: Home, Self-Care <Dayana Rodriguez CNP - Last Filed: 07/18/21 19:40> Instructions: Vertigo (ED) <Dayana Rodriguez CNP - Last Filed: 07/18/21 19:40> Additional Instructions: Please contact your primary care provider to schedule follow-up visit within 1-3 days, you should have her magnesium level rechecked. You have been given an oral supplement of magnesium to take. For your dizziness you may use meclizine as needed, for your nausea you may use Zofran as needed. Return to the emergency department for any new or worsening symptoms or concerns Take your medications as prescribed. If you were prescribed antibiotics today, it is important that you take your medication to their entirety, do not skip any doses, do not finish them early. Return to the emergency department with new or worsening symptoms. Such as fevers, chills, chest pain, shortness of breath, nausea, vomiting, dizziness, headache, vision changes, lethargy In case of emergency call 911 <Dayana Rodriguez CNP - Last Filed: 07/18/21 19:40> Prescriptions: New magnesium oxide 400 mg magnesium capsule 400 mg PO BID 7 Days Qty: 14 0RF meclizine 25 mg tablet 25 mg PO BID PRN (Reason: dizziness) Qty: 10 0RF ondansetron 4 mg tablet,disintegrating 4 mg PO Q8H PRN (Reason: nausea and vomiting) 4 Days 0RF No Action metoprolol succinate 100 mg tablet extended release 24 hr 100 mg PO DAILY Qty: 90 3RF polyethylene glycol 3350 [Miralax] 17 gram/dose powder 17 g PO DAILY 30 Days Qty: 510 1RF calcium polycarbophil [Fiber-Lax] 625 mg tablet 625 mg PO QID PRN (Reason: constipation) Qty: 120 6RF Rx Instructions: Take 1 tablet by mouth two to four times daily as needed for constipation - drink plenty of water with tablets bisacodyl 5 mg tablet,delayed release (DR/EC) 5 mg PO BEDTIME 90 Days Qty: 90 1RF (DME) Aeroneb Go Nebulizer Misc See Rx Instructions .Route Qty: 1 0RF Rx Instructions: As directed albuterol sulfate [ProAir HFA] 90 mcg/actuation HFA aerosol inhaler 2 puff inhalation Q6H PRN (Reason: shortness of breath or wheezing) 30 Days Qty: 6.7 1RF (DME) blood-glucose meter [FreeStyle Lite Meter] Kit See Rx Instructions .Route Qty: 1 0RF Rx Instructions: As directed (DME) lancets [FreeStyle Lancets] 28 gauge misc See Rx Instructions .Route Qty: 100 3RF Rx Instructions: Use 1 lancet once a day (DME) FreeStyle Test Strip See Rx Instructions .Route Qty: 100 3RF Rx Instructions: Use 1 test strip once a day cyclobenzaprine 10 mg tablet 10 mg PO TID PRN (Reason: muscle spasm) Qty: 10 0RF gkmztflovs-lkgpaumplqnsl-nupk [Fioricet] 50-300-40 mg capsule 1 cap PO Q6H PRN (Reason: headache) Qty: 20 0RF pantoprazole [Protonix] 40 mg tablet,delayed release (DR/EC) 40 mg PO DAILY Qty: 20 0RF ondansetron 4 mg tablet,disintegrating 4 mg PO Q8H 4 Days Qty: 12 0RF doxycycline monohydrate 100 mg tablet 100 mg PO BID Qty: 20 0RF ondansetron 4 mg tablet,disintegrating 4 mg PO Q8H PRN (Reason: nausea and vomiting) Qty: 14 0RF lidocaine 5 % ointment 1 appl topical DAILY 30 Days Qty: 30 6RF paroxetine HCl 40 mg tablet 40 mg PO DAILY 0RF paroxetine HCl 20 mg tablet 20 mg PO DAILY 0RF lorazepam 1 mg tablet 1 mg PO QID PRN0RF zolpidem 10 mg tablet 10 mg PO BEDTIME PRN0RF mometasone 0.1 % ointment topical 0RF topiramate 100 mg tablet 100 mg PO DAILY 0RF peg-electrolyte soln 420 gram recon soln PO 0RF meclizine 25 mg tablet PO 0RF Spiriva Respimat 1.25 mcg/actuation mist 2 puff PO QAM 0RF Advair HFA 115-21 mcg/actuation HFA aerosol inhaler 2 puff PO Q4-6H PRN0RF Otezla Starter 10 mg (4)-20 mg (4)-30 mg(19) tablets,dose pack See Rx Instructions PO PER PKG DIR 0RF Rx Instructions: PO PER PKG DIR lisinopril 10 mg tablet 10 mg PO DAILY 90 Days Qty: 90 1RF metformin 850 mg tablet 850 mg PO BID 90 Days Qty: 180 1RF Trulicity 0.75 mg/0.5 mL pen injector 0.75 mg subcut QWEEK 90 Days Qty: 6.5 1RF rosuvastatin 10 mg tablet 10 mg PO BEDTIME 90 Days Qty: 90 1RF valacyclovir [Valtrex] 500 mg tablet 500 mg PO BID PRN0RF Rx Instructions: take with onset on of symptoms, take for three days, may repeat dosing per episode prn esomeprazole magnesium 40 mg capsule,delayed release(DR/EC) 40 mg PO DAILY Qty: 90 1RF furosemide 40 mg tablet 40 mg PO DAILY 30 Days Qty: 30 3RF <Dayana Rodriguez CNP - Last Filed: 07/18/21 19:40> Referrals: Kayy Escobar MD [Primary Care Provider] - 2 days <Dayana Rodriguez CNP - Last Filed: 07/18/21 19:40> Stand Alone Forms: Work/School Release <Dayana Rodriguez CNP - Last Filed: 07/18/21 19:40>
[2021-07-18] MEDS: Magnesium Sulfate/D5W 1 GM/100 ML PIGGYBACK IV (16:25)
[2021-07-18 16:51] VITALS: BP 128/87; BP 134/90; PULSE 100; PULSE 97
[2021-07-18] MEDS: Meclizine HCl 25 MG TABLET PO ×2 (17:09→19:30)
[2021-07-18] MEDS: 0.9 % Sodium Chloride 1,000 ML 999 ML IV (17:51)
[2021-07-18] MEDS: ondansetron HCL 4 MG/2 ML VIAL IVPUSH (19:11)
[2021-07-18 19:16] VITALS: BP 124/83; PULSE 95; RESP 17; O2SAT 97
[2021-07-18] MEDS: diphenhydrAMINE HCL 25 MG TABLET PO (19:30)
[2021-07-18 20:17] VITALS: BP 127/83; PULSE 86; RESP 14; O2SAT 99
--- NOTE | 2021-07-18 20:52 | PC.NURSE ---
PT AMB IN ROOM AND A LITTLE IN [address] WITH LIZETTE. STILL DIZZY WHEN AMBULATES BUT GAIT STEADY.
[2021-07-18] MEDS: LORazepam 1 MG TABLET PO (21:08)
[2021-07-18 21:52] VITALS: BP 115/65; PULSE 89; RESP 16; O2SAT 99
--- NOTE | 2021-07-18 21:53 | PC.NURSE ---
Patient completed an ambulation trial of 20 feet with no c/o of dizziness or episodes of vomiting . provider aware .
== END 2021-07-18 22:03 | disposition home or self-care (01) ==
PROVIDERS: Physician Assistant Medical; Emergency Provider Internal Medicine; PCP Internal Medicine
DX: R42 Dizziness and giddiness (principal); E11.9 Type 2 diabetes mellitus without complications; I10 Essential (primary) hypertension; J45.30 Mild persistent asthma, uncomplicated
CPT/HCPCS: 36415; 70450; 71045; 80048; 80076; 83735; 84484; 85025; 93005; 96361; 96365; 99284; J2405; J3475; Q0163

== ENCOUNTER → 2021-07-20 09:25 | Outpatient (BNVA) | payer OTHER, SELFPAY | PROVIDERS: PCP Internal Medicine; Visit Provider Internal Medicine Pulmonary Disease | DX: J45.909 Unspecified asthma, uncomplicated (principal); Z91.09 Other allergy status, other than to drugs and biological substances; R06.02 Shortness of breath | CPT/HCPCS: 99212 ==

== ENCOUNTER 2021-08-04 08:33 | Outpatient (REF) | payer OTHER, SELFPAY ==
[2021-08-04 14:35] LABS: Anion Gap 20 (12-20); Blood Urea Nitrogen 15 mg/dL (9-16); Calcium 9.9 mg/dL (8.4-10.2); Carbon Dioxide 22 mmol/L (22-29); Chloride 102 mmol/L (96-108); Estimated Glomerular Filt Rate 58; Glucose Random 175 mg/dL (60-115); Potassium 4.1 mmol/L (3.3-5.1); Sodium 140 mmol/L (135-145)
== END 2021-08-04 08:34 | disposition home or self-care (01) ==
LOC: HO.LAB 08:33
PROVIDERS: PCP Internal Medicine; Visit Provider Internal Medicine Cardiovascular Disease
DX: Z01.818 Encounter for other preprocedural examination (principal)
CPT/HCPCS: 36415; 80048

== ENCOUNTER 2021-08-07 11:08 | Outpatient (REF) | payer OTHER, SELFPAY ==
[2021-08-07 12:39] LABS: Alanine Aminotransferase 33 U/L (0-31); Albumin Level 4.6 g/dL (3.5-5.0); Alkaline Phosphatase 78 U/L (39-117); Anion Gap 18 (12-20); Aspartate Amino Transferase 28 U/L (5-31); Bilirubin Total 1.2 mg/dL (0.0-1.0); Blood Urea Nitrogen 25 mg/dL (9-16); Calcium 9.1 mg/dL (8.4-10.2); Carbon Dioxide 27 mmol/L (22-29); Chloride 98 mmol/L (96-108); Estimated Glomerular Filt Rate 41; Glucose Fasting 147 mg/dL (60-99); Potassium 4.1 mmol/L (3.3-5.1); Sodium 139 mmol/L (135-145); Total Protein 7.3 g/dL (6.5-8.0)
[2021-08-07 12:41] LABS: Magnesium 1.2 mg/dL (1.6-2.6)
== END 2021-08-07 11:09 | disposition home or self-care (01) ==
LOC: HO.LAB 11:08
PROVIDERS: PCP Internal Medicine; Visit Provider Nurse Practitioner Family
DX: E83.42 Hypomagnesemia (principal); E11.9 Type 2 diabetes mellitus without complications; R42 Dizziness and giddiness
CPT/HCPCS: 36415; 80053; 83735

== ENCOUNTER 2021-08-24 08:29 | Outpatient (REF) | payer OTHER, SELFPAY ==
[2021-08-24 10:21] LABS: Anion Gap 17 (12-20); Blood Urea Nitrogen 9 mg/dL (9-16); Calcium 9.4 mg/dL (8.4-10.2); Carbon Dioxide 19 mmol/L (22-29); Chloride 106 mmol/L (96-108); Estimated Glomerular Filt Rate > 60; Glucose Random 144 mg/dL (60-115); Magnesium 1.9 mg/dL (1.6-2.6); Potassium 4.8 mmol/L (3.3-5.1); Sodium 137 mmol/L (135-145)
== END 2021-08-24 08:30 | disposition home or self-care (01) ==
LOC: HO.LAB 08:29
PROVIDERS: PCP Internal Medicine; Visit Provider Nurse Practitioner Family
DX: E83.42 Hypomagnesemia (principal)
CPT/HCPCS: 36415; 80048; 83735

== ENCOUNTER 2021-09-29 08:02 | Outpatient (REF) | payer OTHER, SELFPAY ==
[2021-09-29 08:49] LABS: Alanine Aminotransferase 25 U/L (0-31); Albumin Level 4.6 g/dL (3.5-5.0); Alkaline Phosphatase 74 U/L (39-117); Anion Gap 13 (12-20); Aspartate Amino Transferase 21 U/L (5-31); Bilirubin Total 0.7 mg/dL (0.0-1.0); Blood Urea Nitrogen 7 mg/dL (9-16); Calcium 9.2 mg/dL (8.4-10.2); Carbon Dioxide 26 mmol/L (22-29); Chloride 108 mmol/L (96-108); Cholesterol 147 mg/dL; Estimated Glomerular Filt Rate > 60; Glucose Fasting 131 mg/dL (60-99); HDL Cholesterol 48 mg/dL; LDL Cholesterol Calculated 73 mg/dl; Sodium 143 mmol/L (135-145); Total Protein 7.1 g/dL (6.5-8.0); Triglycerides 132 mg/dL
[2021-09-29 09:10] LABS: Vitamin D 25-OH Total 28.5 ng/mL (>30)
[2021-09-29 09:27] LABS: Creatinine Urine 174.79 mg/dL
== END 2021-09-29 08:03 | disposition home or self-care (01) ==
LOC: HO.LAB 08:02
PROVIDERS: PCP Internal Medicine; Visit Provider Internal Medicine
DX: I47.1 Supraventricular tachycardia (principal); R06.02 Shortness of breath; E55.9 Vitamin D deficiency, unspecified; I10 Essential (primary) hypertension; E78.5 Hyperlipidemia, unspecified; E11.9 Type 2 diabetes mellitus without complications
CPT/HCPCS: 36415; 80053; 80061; 82043; 82306; 99212

== ENCOUNTER 2021-10-03 03:43 | Emergency (ER) | payer OTHER, SELFPAY ==
[2021-10-03 04:05] VITALS: BP 159/100; PULSE 93; RESP 16; TEMP 36.6; O2SAT 99; BMI 35.2
--- NOTE | 2021-10-03 08:06 | ED.SKABFB ---
HPI - Skin/Abscess/Foreign Bdy General Chief complaint: Skin/Abscess/Foreign Body Stated complaint: abd pain Time Seen by Provider: 10/03/21 08:02 Source: patient Mode of arrival: ambulatory History of Present Illness HPI narrative: 56-year-old female with history of diabetes comes in with mild redness and swelling at the lower abdominal wall without reported fevers or chills. Patient states that she has had these before . Related Data Home Medications Medication Instructions Recorded Confirmed lorazepam 1 mg tablet 1 mg PO QID PRN 02/13/20 09/29/21 meclizine 25 mg tablet mg PO 02/13/20 09/29/21 mometasone 0.1 % topical ointment topical 02/13/20 09/29/21 peg-electrolyte solution 420 gram ml PO 02/13/20 09/29/21 oral solution topiramate 100 mg tablet 100 mg PO DAILY 02/13/20 09/29/21 zolpidem 10 mg tablet 10 mg PO BEDTIME PRN 02/13/20 09/29/21 apremilast 10 mg (4)-20 mg (4)-30 See Rx Instructions PO PER PKG DIR 05/06/21 09/29/21 mg (19) tablets in a dose pack (Otezla Starter) fluticasone propionate 115 2 puff PO Q4-6H PRN 05/06/21 09/29/21 mcg-salmeterol 21 mcg/actuation HFA inhaler (Advair HFA) tiotropium bromide 1.25 2 puff PO QAM 05/06/21 09/29/21 mcg/actuation mist for inhalation (Spiriva Respimat) bisacodyl 5 mg tablet,delayed 5 mg PO BEDTIME 09/29/21 09/29/21 release paroxetine HCl 20 mg tablet 10 mg PO DAILY 09/29/21 09/29/21 paroxetine HCl 40 mg tablet 40 mg PO DAILY 09/29/21 09/29/21 Previous Rx's Medication Instructions Recorded cyclobenzaprine 10 mg tablet 10 mg PO TID PRN muscle spasm #10 04/19/20 tabs lidocaine 5 % topical ointment 1 appl topical DAILY 30 days #30 07/01/20 grams qruvupefrm-ibryrvncayrsd-dxwdabnu 1 cap PO Q6H PRN headache #20 caps 08/06/20 50 mg-300 mg-40 mg capsule (Fioricet) polyethylene glycol 3350 17 17 g PO DAILY 30 days #510 grams 09/23/20 gram/dose oral powder (Miralax) calcium polycarbophil 625 mg 625 mg PO QID PRN constipation 09/24/20 tablet (Fiber-Lax) #120 tabs albuterol sulfate 90 mcg/actuation 2 puff inhalation Q6H PRN 02/05/21 aerosol inhaler (ProAir HFA) shortness of breath or wheezing 30 days #6.7 grams nebulizers (Aeroneb Go Nebulizer) #1 ea 02/05/21 esomeprazole magnesium 40 mg 40 mg PO DAILY #90 caps 02/13/21 capsule,delayed release blood-glucose meter (FreeStyle #1 ea 05/14/21 Lite Meter kit) furosemide 40 mg tablet 40 mg PO DAILY 30 days #30 tabs 06/12/21 dulaglutide 0.75 mg/0.5 mL 0.75 mg (0.5 mL) subcut QWEEK 90 06/17/21 subcutaneous pen injector days #6.5 mL (Trulicity) lisinopril 10 mg tablet 10 mg PO DAILY 90 days #90 tabs 06/17/21 metformin 850 mg tablet 850 mg PO BID 90 days #180 tabs 06/17/21 rosuvastatin 10 mg tablet 10 mg PO BEDTIME 90 days #90 tabs 06/17/21 blood sugar diagnostic (FreeStyle #100 ea 07/03/21 Test strips) lancets 28 gauge (FreeStyle #100 ea 07/03/21 Lancets) meclizine 25 mg tablet 25 mg PO BID PRN dizziness #10 tabs 07/18/21 ondansetron 4 mg disintegrating 4 mg PO Q8H PRN nausea and 07/18/21 tablet vomiting 4 days cephalexin 500 mg capsule 500 mg PO BID 5 days #10 caps 10/03/21 doxycycline hyclate 100 mg capsule 100 mg PO BID 5 days #10 caps 10/03/21 Allergies Allergy/AdvReac Type Severity Reaction Status Date / Time bee pollen [BEE STINGS] Allergy Intermediate RASH Verified 09/29/21 07:42 SWELLING PAIN FULL. phentermine Allergy Intermediate ANXIETY Verified 09/29/21 07:42 pneumococcal vaccine Allergy Intermediate Swelling Verified 09/29/21 07:42 tramadol Allergy Intermediate stomach Verified 09/29/21 07:42 upset adhesive tape [ADHESIVE TAPE] Allergy Mild RASH Verified 09/29/21 07:42 oxycodone [OXYCODONE] AdvReac Intermediate VOMITING Verified 09/29/21 07:42 Review of Systems Review of Systems: Pertinent positives and negatives as stated in HPI 10 point review of systems otherwise negative. [facility] Past Medical History Source: nursing notes reviewed Medical History Abscess Depression with anxiety Diabetes mellitus Essential hypertension GERD (gastroesophageal reflux disease) Hand numbness Herpes simplex type 2 infection Hospital discharge follow-up Impaired glucose tolerance Insomnia Left knee pain Left leg pain Migraines Mild persistent asthma Mild recurrent major depression Mixed hyperlipidemia Nausea Supraventricular tachycardia Surgical History History of cardiac radiofrequency ablation History of esophagogastroduodenoscopy (EGD) History of removal of cyst History of surgery History of total abdominal hysterectomy Hx of colonoscopy Family History Family History Father Brain cancer Mother Esophageal cancer Sister Breast cancer Paternal Uncle Diabetes Hypertension Social History Social History Household Members: Children Housing: Apartment Alcohol intake: never Patient Tobacco Use Status: Never used Tobacco e-Cigarette/Vaping Use: Never Used Second Hand Smoke Exposure: No Advance Directives: No Advance Directives Information Provided: Yes service: No Current occupational status: unemployed Cognitive needs: No Hearing needs: No Vision needs: No Physical Exam Vital Signs: Vital Signs: Last Vital Signs Temp 97.9 F 10/03/21 04:05 Pulse 93 10/03/21 04:05 Resp 16 10/03/21 04:05 BP 159/100 H 10/03/21 04:05 Pulse Ox 99 10/03/21 04:05 O2 Del Method 10/03/21 04:05 BMI result Body Mass Index 35.2 VITAL SIGNS: Reviewed. GENERAL: Well developed, well nourished, in no acute distress. HEAD: Normocephalic/atraumatic EYES: PERRLA, EOMI EARS: Ext canals without abnormality OROPHARYNX: no oral lesions noted, posterior pharynx clear LUNGS: Normal breath sounds. No adventitious sounds or accessory muscle use. SpO2<99> CARDIOVASCULAR: Regular rate and rhythm without noted murmurs, ABDOMEN: Soft, non-tender, non-distended with bowel sounds, 2 cm erythematous area to the left lower quadrant abdominal wall with fluctuance SKIN: Inspection of the skin reveals no rashes NEUROLOGIC: Alert and oriented x 4. Strength and sensation to light touch were grossly intact x 4. Course Course Course Narrative: 56-year-old female with history and clinical presentation consistent with carbuncle, it was incised and drained with 10 cc of purulent material, dressing was applied without awake patient was placed on antibiotics as she is diabetic and discharged home in stable condition. Procedures Abscess I/D Site: abdomen Side (if applicable): left Local Anesthetic: lidocaine 1% Amount of anesthesia used (mL): 1 Technique: incised with blade Amount of fluid expressed (mL): 10 Sent for culture/gram staining?: No Irrigation: Yes Packing used?: none Discharge Plan Discharge Clinical Impression: Abdominal wall abscess Patient Disposition: Home, Self-Care Instructions: Abscess (ED), Abscess Incision and Drainage (DC), Warm Compress or Soak (ED) Additional Instructions: 1. Reanudar todos los medicamentos caseros seg?n lo prescrito. 2. Complete todo el ciclo de antibi?ticos seg?n lo indicado. 3. Aplicar compresas calientes rose mary las pr?ximas 24-48 horas. 4. Ras un seguimiento con duncan proveedor de atenci?n primaria en los pr?ximos 1 a 2 d?as para hair reevaluaci?n. Regrese a la josé miguel de emergencias si los s?ntomas empeoran. Prescriptions: New doxycycline hyclate 100 mg capsule 100 mg PO BID 5 Days Qty: 10 0RF cephalexin 500 mg capsule 500 mg PO BID 5 Days Qty: 10 0RF No Action polyethylene glycol 3350 [Miralax] 17 gram/dose powder 17 g PO DAILY 30 Days Qty: 510 1RF calcium polycarbophil [Fiber-Lax] 625 mg tablet 625 mg PO QID PRN (Reason: constipation) Qty: 120 6RF Rx Instructions: Take 1 tablet by mouth two to four times daily as needed for constipation - drink plenty of water with tablets (DME) Aeroneb Go Nebulizer [facility] See Rx Instructions .Route Qty: 1 0RF Rx Instructions: As directed albuterol sulfate [ProAir HFA] 90 mcg/actuation HFA aerosol inhaler 2 puff inhalation Q6H PRN (Reason: shortness of breath or wheezing) 30 Days Qty: 6.7 1RF (DME) blood-glucose meter [FreeStyle Lite Meter] Kit See Rx Instructions .Route Qty: 1 0RF Rx Instructions: As directed (DME) lancets [FreeStyle Lancets] [facility] See Rx Instructions .Route Qty: 100 3RF Rx Instructions: Use 1 lancet once a day (DME) FreeStyle Test Strip See Rx Instructions .Route Qty: 100 3RF Rx Instructions: Use 1 test strip once a day cyclobenzaprine 10 mg tablet 10 mg PO TID PRN (Reason: muscle spasm) Qty: 10 0RF ukpegmshtj-wdlkrjbaunloj-lsrs [Fioricet] 50-300-40 mg capsule 1 cap PO Q6H PRN (Reason: headache) Qty: 20 0RF meclizine 25 mg tablet 25 mg PO BID PRN (Reason: dizziness) Qty: 10 0RF ondansetron 4 mg tablet,disintegrating 4 mg PO Q8H PRN (Reason: nausea and vomiting) 4 Days 0RF lidocaine 5 % ointment 1 appl topical DAILY 30 Days Qty: 30 6RF lorazepam 1 mg tablet 1 mg PO QID PRN zolpidem 10 mg tablet 10 mg PO BEDTIME PRN mometasone 0.1 % ointment topical topiramate 100 mg tablet 100 mg PO DAILY peg-electrolyte soln 420 gram recon soln PO meclizine 25 mg tablet PO paroxetine HCl 20 mg tablet 10 mg PO DAILY paroxetine HCl 40 mg tablet 40 mg PO DAILY Spiriva Respimat 1.25 mcg/actuation mist 2 puff PO QAM Advair HFA 115-21 mcg/actuation HFA aerosol inhaler 2 puff PO Q4-6H PRN Otezla Starter 10 mg (4)-20 mg (4)-30 mg(19) tablets,dose pack See Rx Instructions PO PER PKG DIR Rx Instructions: PO PER PKG DIR lisinopril 10 mg tablet 10 mg PO DAILY 90 Days Qty: 90 1RF Hold Instructions: Doctor's Order metformin 850 mg tablet 850 mg PO BID 90 Days Qty: 180 1RF Trulicity 0.75 mg/0.5 mL pen injector 0.75 mg subcut QWEEK 90 Days Qty: 6.5 1RF rosuvastatin 10 mg tablet 10 mg PO BEDTIME 90 Days Qty: 90 1RF esomeprazole magnesium 40 mg capsule,delayed release(DR/EC) 40 mg PO DAILY Qty: 90 1RF furosemide 40 mg tablet 40 mg PO DAILY 30 Days Qty: 30 3RF bisacodyl 5 mg tablet,delayed release (DR/EC) 5 mg PO BEDTIME Referrals: Kayy Escobar MD [Primary Care Provider] - Print Language: Serbian
[2021-10-03] MEDS: Lidocaine HCl 1 % MPF 5 ML VIAL SUBCUT (09:41)
== END 2021-10-03 09:42 | disposition home or self-care (01) ==
PROVIDERS: Emergency Provider Student in an Organized Health Care Education/Training Program; PCP Internal Medicine
DX: L02.211 Cutaneous abscess of abdominal wall (principal); R10.30 Lower abdominal pain, unspecified; E11.9 Type 2 diabetes mellitus without complications; I10 Essential (primary) hypertension; E78.2 Mixed hyperlipidemia; Z79.84 Long term (current) use of oral hypoglycemic drugs; Z79.899 Other long term (current) drug therapy; Z79.02 Long term (current) use of antithrombotics/antiplatelets
CPT/HCPCS: 10060; 99282; 99284

== ENCOUNTER 2021-10-07 09:39 | Outpatient (REF) | payer OTHER, SELFPAY ==
--- NOTE | ~2021-10-07 | MM_ITS ---
EXAMINATION: MM SCREENING DIGITAL BREAST TOMOSYNTHESIS, BILATERAL CLINICAL INFORMATION: Screening. Asymptomatic. The lifetime risk of breast cancer based on the Tyrer-Cuzick Model is 13%. COMPARISON: Mammography: 01/08/2020, 06/08/2018, 05/03/2016 TECHNIQUE: Digital breast tomosynthesis is performed in both the craniocaudal and mediolateral oblique views along with computer-aided detection (CAD). Synthesized 2D images are generated from the tomosynthesis. FINDINGS: There are scattered areas of fibroglandular density (ACR BI-RADS breast composition Category b). There are no significant changes from prior studies. No interval mass or developing density or architectural abnormality. Again, there is benign parenchymal asymmetry posterior upper outer right breast. Low right axillary tail node again noted. Left breast has incidental intramammary node mid upper outer quadrant. No abnormal calcifications. MM/MM tomosynthesis screening BI IMPRESSION: No mammographic evidence of malignancy. ASSESSMENT: BI-RADS 2: Benign RECOMMENDATION: Routine annual mammography screening. This patient's information was entered into a reminder system with a target due date for their next mammogram.
== END 2021-10-07 09:40 | disposition home or self-care (01) ==
LOC: HO.MAMMO 09:39
PROVIDERS: PCP Internal Medicine; Visit Provider Internal Medicine
DX: Z12.31 Encounter for screening mammogram for malignant neoplasm of breast (principal)
CPT/HCPCS: 77063; 77067

== ENCOUNTER → 2021-10-19 14:43 | Outpatient (BNVA) | payer OTHER, SELFPAY | PROVIDERS: PCP Internal Medicine; Visit Provider Internal Medicine Gastroenterology | DX: K21.9 Gastro-esophageal reflux disease without esophagitis (principal); K20.90 Esophagitis, unspecified without bleeding; R13.10 Dysphagia, unspecified | CPT/HCPCS: 99212 ==

== ENCOUNTER → 2021-11-20 08:49 | Outpatient (BNVA) | payer OTHER, SELFPAY | PROVIDERS: PCP Internal Medicine; Visit Provider Internal Medicine Pulmonary Disease | DX: J45.909 Unspecified asthma, uncomplicated (principal); Z91.09 Other allergy status, other than to drugs and biological substances | CPT/HCPCS: 99212 ==

== ENCOUNTER 2021-11-24 06:43 | Day surgery (SDC) | payer OTHER, SELFPAY ==
[2021-11-19 14:37] VITALS: BMI 35.2
--- NOTE | 2021-11-23 10:32 | P.CONAN_ITS ---
Documented by User: Radha Dan NP 11/23/21 10:40 HPI - Anesthesia Eval Consult details Narrative: 56yo F for Upper Endoscopy Stable at 09/2021 cardiac office visit. Nml CTA. SOB likely pulmo related Pulmo visit 11/2021, suboptimal control of asthma, pt to start Xolair PMFSH Active Problems Active Problems: All Active Problems (Updated 10/04/21 @ 00:02 by Background Danile) Left sciatic nerve pain (Acute) Physical exam (Acute) Hypomagnesemia (Acute) Vertigo (Acute) Hospital discharge follow-up (Acute) Abscess (Acute) Essential hypertension (Acute) Abnormal EKG (Acute) Abnormal nuclear cardiac imaging test (Acute) Diabetes mellitus (Acute) Post covid-19 condition, unspecified (Acute) Environmental allergies (Acute) Asthma (Acute) Migraines (Acute) Hand numbness (Acute) SOB (shortness of breath) on exertion (Acute) Mild persistent asthma (Acute) Impaired glucose tolerance (Acute) Mild recurrent major depression (Acute) Herpes simplex type 2 infection (Acute) Mixed hyperlipidemia (Acute) Supraventricular tachycardia (Acute) Left leg pain (Acute) GERD (gastroesophageal reflux disease) (Acute) Insomnia (Acute) Left knee pain (Acute) Nausea (Acute) Depression with anxiety (Acute) Past Medical History Medical History Abscess Depression with anxiety Diabetes mellitus Essential hypertension GERD (gastroesophageal reflux disease) Hand numbness Herpes simplex type 2 infection Hospital discharge follow-up Impaired glucose tolerance Insomnia Left knee pain Left leg pain Migraines Mild persistent asthma Mild recurrent major depression Mixed hyperlipidemia Nausea Supraventricular tachycardia Family History Family History Father Brain cancer Mother Esophageal cancer Sister Breast cancer Paternal Uncle Diabetes Hypertension Surgical History Surgical History History of cardiac radiofrequency ablation History of esophagogastroduodenoscopy (EGD) History of removal of cyst History of surgery History of total abdominal hysterectomy Hx of colonoscopy Social History Social History Household Members: Children Housing: Apartment Alcohol intake: never Patient Tobacco Use Status: Never used Tobacco e-Cigarette/Vaping Use: Never Used Second Hand Smoke Exposure: No Use of substances other than those prescribed or required for medical reasons: No Advance Directives: No Advance Directives Information Provided: Yes Recently lost weight without trying: No service: No Current occupational status: unemployed Cognitive needs: No Hearing needs: No Vision needs: No Meds Allergies Allergy/AdvReac Type Severity Reaction Status Date / Time bee pollen [BEE STINGS] Allergy Intermediate RASH Verified 11/20/21 08:56 SWELLING PAIN FULL. phentermine Allergy Intermediate ANXIETY Verified 11/20/21 08:56 pneumococcal vaccine Allergy Intermediate Swelling Verified 11/20/21 08:56 tramadol Allergy Intermediate stomach Verified 11/20/21 08:56 upset adhesive tape [ADHESIVE TAPE] Allergy Mild RASH Verified 11/20/21 08:56 oxycodone [OXYCODONE] AdvReac Intermediate VOMITING Verified 11/20/21 08:56 Home Medications Medication Instructions Recorded Confirmed Last Taken Type lorazepam 1 mg tablet 1 mg PO QID PRN 02/13/20 09/29/21 Unknown History mometasone 0.1 % topical ointment topical 02/13/20 09/29/21 Unknown History peg-electrolyte solution 420 gram ml PO 02/13/20 09/29/21 Unknown History oral solution topiramate 100 mg tablet 100 mg PO DAILY 02/13/20 09/29/21 Unknown History zolpidem 10 mg tablet 10 mg PO BEDTIME PRN 02/13/20 09/29/21 Unknown History apremilast 10 mg (4)-20 mg (4)-30 See Rx Instructions PO PER PKG DIR 05/06/21 09/29/21 Unknown History mg (19) tablets in a dose pack (Otezla Starter) fluticasone propionate 115 2 puff PO Q4-6H PRN 05/06/21 09/29/21 Unknown History mcg-salmeterol 21 mcg/actuation HFA inhaler (Advair HFA) tiotropium bromide 1.25 2 puff PO QAM 05/06/21 09/29/21 Unknown History mcg/actuation mist for inhalation (Spiriva Respimat) bisacodyl 5 mg tablet,delayed 5 mg PO BEDTIME 09/29/21 09/29/21 Unknown History release clobetasol 0.05 % topical ointment 1 appl topical BID 08/15/22 Unknown History loratadine 10 mg tablet 10 mg PO DAILY 10/19/21 Unknown History paroxetine HCl 10 mg tablet 10 mg PO DAILY 10/19/21 Unknown History Exam Exam Date and Time: November 23, 2021 1032 Height,Weight and Vital Signs: Height 5 ft 7 in Weight 102.058 kg Narrative Narrative: EKG 07/2021 Vent. Rate : 108 BPM ? ? Atrial Rate : 108 BPM ?? P-R Int : 140 ms? QRS Dur : 086 ms ? ? QT Int : 348 ms ? ? ? P-R-T Axes : 047 -01 019 degrees ?? QTc Int : 466 ms ? Sinus tachycardia Otherwise normal ECG When compared with ECG of 20-JUN-2021 21:21, No significant change was found ECHO 05/2021 Conclusions: - The left ventricular systolic function is normal.? The ? calculated ejection fraction is 57% by biplane method. ? - Mild to moderate focal hypertrophy of the basal septum.? - No obvious valvular pathology seen on this study.?? NM cardiolite stress test 04/2021 Impression: ? 1.? Myocardial perfusion imaging study shows likely normal perfusion. Reversible distal anterior defect, but improving with CT attenuation correction; also with normal contractility on gating, and hence suggestive of soft tissue attenuation artifact. 2.? Gated LVEF is 59% during stress and 58% during rest. 3. Transient ischemic dilatation not present. ? EKG component of the test reported separately. CTA 2021 (per 09/2021 cardiac visit) Nml coronary arteries PFT 06/2021 INTERPRETATION:? No obstructive ventilatory defect.? No significant response to bronchodilators was noted.? There is a moderate decrease in maximum voluntary ventilation secondary to likely deconditioning, although cannot rule out neuromuscular conditions.? The patient does have a restrictive ventilatory defect consistent mild restrictive lung disease.? The patient also has a decrease in the expiratory reserve volume secondary to likely an elevated BMI that may be contributing to the decrease in the lung capacity.? The patient does have a mild diffusion impairment that does correct to normal when correcting for the alveolar volume.? Clinical correlation is warranted. Assessment and Plan Assessment Anesthesia Assessment: Chart Reviewed Documented by User: Hugo Crespo MD 11/24/21 07:45 [facility] Past Medical History Medical History Abscess Depression with anxiety Diabetes mellitus Essential hypertension GERD (gastroesophageal reflux disease) Hand numbness Herpes simplex type 2 infection Hospital discharge follow-up Impaired glucose tolerance Insomnia Left knee pain Left leg pain Migraines Mild persistent asthma Mild recurrent major depression Mixed hyperlipidemia Nausea Supraventricular tachycardia Family History Family History Father Brain cancer Mother Esophageal cancer Sister Breast cancer Paternal Uncle Diabetes Hypertension Family history of problems with anesthesia: No Surgical History Surgical History History of cardiac radiofrequency ablation History of esophagogastroduodenoscopy (EGD) History of removal of cyst History of surgery History of total abdominal hysterectomy Hx of colonoscopy History of Problems with Anesthesia: No Social History Social History Household Members: Children Housing: Apartment Alcohol intake: never Patient Tobacco Use Status: Never used Tobacco e-Cigarette/Vaping Use: Never Used Second Hand Smoke Exposure: No Use of substances other than those prescribed or required for medical reasons: No Advance Directives: No Advance Directives Information Provided: Yes Recently lost weight without trying: No service: No Current occupational status: unemployed Cognitive needs: No Hearing needs: No Vision needs: No Meds Allergies Allergy/AdvReac Type Severity Reaction Status Date / Time bee pollen [BEE STINGS] Allergy Intermediate RASH Verified 11/20/21 08:56 SWELLING PAIN FULL. phentermine Allergy Intermediate ANXIETY Verified 11/20/21 08:56 pneumococcal vaccine Allergy Intermediate Swelling Verified 11/20/21 08:56 tramadol Allergy Intermediate stomach Verified 11/20/21 08:56 upset adhesive tape [ADHESIVE TAPE] Allergy Mild RASH Verified 11/20/21 08:56 oxycodone [OXYCODONE] AdvReac Intermediate VOMITING Verified 11/20/21 08:56 Home Medications Medication Instructions Recorded Confirmed Last Taken Type lorazepam 1 mg tablet 1 mg PO QID PRN 02/13/20 09/29/21 Unknown History mometasone 0.1 % topical ointment topical 02/13/20 09/29/21 Unknown History peg-electrolyte solution 420 gram ml PO 02/13/20 09/29/21 Unknown History oral solution topiramate 100 mg tablet 100 mg PO DAILY 02/13/20 09/29/21 Unknown History zolpidem 10 mg tablet 10 mg PO BEDTIME PRN 02/13/20 09/29/21 Unknown History apremilast 10 mg (4)-20 mg (4)-30 See Rx Instructions PO PER PKG DIR 05/06/21 09/29/21 Unknown History mg (19) tablets in a dose pack (Otezla Starter) fluticasone propionate 115 2 puff PO Q4-6H PRN 05/06/21 09/29/21 Unknown History mcg-salmeterol 21 mcg/actuation HFA inhaler (Advair HFA) tiotropium bromide 1.25 2 puff PO QAM 05/06/21 09/29/21 Unknown History mcg/actuation mist for inhalation (Spiriva Respimat) bisacodyl 5 mg tablet,delayed 5 mg PO BEDTIME 09/29/21 09/29/21 Unknown History release clobetasol 0.05 % topical ointment 1 appl topical BID 10/19/21 Unknown History loratadine 10 mg tablet 10 mg PO DAILY 10/19/21 Unknown History paroxetine HCl 10 mg tablet 10 mg PO DAILY 10/19/21 Unknown History Exam Airway Mallampati Class: III TM Dist: >3cm Neck ROM: Full Partial: Upper Heart: rrr Lungs: clear Assessment and Plan Final Anesthetic Review Family History of Problems with Anesthesia: No History of Problems with Anesthesia: No NPO: Yes ASA Class: III Final Preanesthetic Review: No Changes in Pt Med Stat, Meds/Allgs Chart Reviewed, Consent Obtained/Reviewed and Anes Risks/Benef Reviewed Patient Risk: Intermediate Procedure Risk: Low Anesthetic Plan Anesthetic Plan: MAC: Disposition: Standard PACU
[2021-11-24 06:50] VITALS: BP 143/99; PULSE 87; RESP 16; TEMP 36.4; O2SAT 96; BMI 36.8
--- NOTE | 2021-11-24 06:51 | MHC.SHP ---
Pre-Procedural Eval Section A Date of Service: 11/24/21 Section B Chief Complaint: reflux disease Relevant Family History (Specify if Yes): No Relevant Social History: None Present Medications: see Short Stay Collaborative assessment Medical History: Significant History (Abscess Depression with anxiety Diabetes mellitus Essential hypertension GERD (gastroesophageal reflux disease) Hand numbness Herpes simplex type 2 infection Hospital discharge follow-up Impaired glucose tolerance Insomnia Left knee pain Left leg pain Migraines Mild persistent asthma Mild recurrent ) History of Previous Operations: Relevant previous surgery/procedure and date(s) (History of cardiac radiofrequency ablation History of esophagogastroduodenoscopy (EGD) History of removal of cyst History of surgery History of total abdominal hysterectomy Hx of colonoscopy) Allergies: Allergies Allergy/AdvReac Type Severity Reaction Status Date / Time bee pollen [BEE STINGS] Allergy Intermediate RASH Verified 11/20/21 08:56 SWELLING PAIN FULL. phentermine Allergy Intermediate ANXIETY Verified 11/20/21 08:56 pneumococcal vaccine Allergy Intermediate Swelling Verified 11/20/21 08:56 tramadol Allergy Intermediate stomach Verified 11/20/21 08:56 upset adhesive tape [ADHESIVE TAPE] Allergy Mild RASH Verified 11/20/21 08:56 oxycodone [OXYCODONE] AdvReac Intermediate VOMITING Verified 11/20/21 08:56 Review of Systems Sugical H&P ROS: Negative: Constitution, Cardiovascular, Respiratory, Neurological, Psychiatric, Hem-Onc, Allergic/Immunologic, Gastrointestinal, Genitourinary, Musculoskeletal, Integumentary, Endocrine and Eyes/Ears/Nose/Throat Exam Surgical H&P Exam: Normal: HEENT, Normal: Heart, Normal: Lungs, Normal: Extremities, Normal: Abdomen, Normal: Skin and Normal: Neurological Plan Diagnosis/Plan: Unchanged I have reviewed the history and physical and performed a pertinent physical examination on my patient. No changes have occurred unless specified.
[2021-11-24] MEDS: Lactated Ringers 1,000 ML 100 ML IVCONT (07:18)
[2021-11-24 07:34] LABS: Glucose, Whole Blood 163 mg/dL (60-115)
--- NOTE | 2021-11-24 07:56 | W.PM.OPN ---
Operative Note Operative Note Date of Service: 11/24/21 Narrative: Procedure Description: EGD Indication: dysphagia and reflux Anesthesia: MAC FLEXIBLE TRANSORAL UPPER GASTROINTESTINAL ENDOSCOPY UPPER ENDOSCOPY Consent: Indications for the procedure and potential complications of bleeding, perforation, reaction to medications and missed diagnosis were discussed with the patient and informed consent was obtained. Instrument: Olympus GIF H 190 J mid size upper endoscope Monitoring: Vital signs and clinical assessment, continuous EKG monitoring, Pulse oximetry, Carbon Dioxide monitoring and blood pressure monitoring were done throughout the procedure. Procedure: The patient was placed in the left lateral decubitis position and pre-procedure medications were administered and a bite block was placed. The endoscope was inserted into the mouth and advanced under direct vision to the third part of duodenum. A careful inspection was made as the upper endoscope was withdrawn including a retroflexed examination of the proximal stomach; Findings and interventions are described below. Findings: Larynx:normal Esophagus: GE junction at 38 cm, diaphragm hiatus at 38 cm, bogginess and edema at GEJ, bx taken from here and distal and proximal esophagus in separate jars. LEs dilated to 19 mm and UES dilated to 19 mm without tear seen. Stomach: Patchy gastric erythema. Biopsies were obtained. Grade 2 flap valve on retroflexed examination of the cardia. There were clusters of fundic gland appearing polyps, some of these were biopsied due to v pale appearance. Duodenum: Normal bulb and descending duodenum, Intervention: Biopsies as noted above, balloon dilation Impression/Findings: esophagitis gastritis fundic gland polyps PLAN: await result,s if h pylori pos then treat might increase PPI or change depending on results.
[2021-11-24 08:18] VITALS: BP 144/96; PULSE 97; RESP 18; TEMP 37.1; O2SAT 97
[2021-11-24 08:32] VITALS: BP 150/105; PULSE 83; RESP 18; TEMP 37.1; O2SAT 98
== END 2021-11-24 09:11 | disposition home or self-care (01) ==
PROVIDERS: PCP Internal Medicine; Visit Provider Internal Medicine Gastroenterology
PROC: 0DJ08ZZ Inspection of Upper Intestinal Tract, Via Natural or Artificial Opening Endoscopic (ICD-10-PCS; CPT 43235; principal; 2021-11-24 07:30)
DX: K21.00 Gastro-esophageal reflux disease with esophagitis, without bleeding (principal); R13.10 Dysphagia, unspecified; K29.50 Unspecified chronic gastritis without bleeding; K31.7 Polyp of stomach and duodenum; K44.9 Diaphragmatic hernia without obstruction or gangrene; I10 Essential (primary) hypertension; E78.2 Mixed hyperlipidemia; E11.9 Type 2 diabetes mellitus without complications; J45.30 Mild persistent asthma, uncomplicated; I47.1 Supraventricular tachycardia; F33.0 Major depressive disorder, recurrent, mild; Z88.8 Allergy status to other drugs, medicaments and biological substances
CPT/HCPCS: 43249; 43239; 82947; 88305; 88312; 88342; C1726

== ENCOUNTER 2022-01-09 19:02 | Emergency (ER) | payer OTHER, SELFPAY ==
[2022-01-09 19:10] VITALS: BP 154/95; PULSE 93; RESP 20; TEMP 36.5; O2SAT 96; BMI 35.4
--- NOTE | 2022-01-09 20:41 | ED.GENADULT ---
HPI - General Adult General Chief complaint: General Medical Stated complaint: Bee sting to L arm / swelling Time Seen by Provider: 01/09/22 20:01 Source: patient Mode of arrival: ambulatory Limitations: no limitations History of Present Illness HPI narrative: 56-year-old female presents to the ED for left arm redness and itchiness and slight pain. Yesterday patient states she was bitten by a bee she has known allergy to bees. Patient states after bite there was erythema and itchiness and then the redness slightly spread. Patient denies any bull's-eye rash or being bitten by tick. Patient's bee biting her. She denies any chest pain, shortness of breath, tongue swelling, sensation of throat closing, fever, or chills. Related Data Home Medications Medication Instructions Recorded Confirmed lorazepam 1 mg tablet 1 mg PO QID PRN 02/13/20 09/29/21 mometasone 0.1 % topical ointment topical 02/13/20 09/29/21 peg-electrolyte solution 420 gram ml PO 02/13/20 09/29/21 oral solution topiramate 100 mg tablet 100 mg PO DAILY 02/13/20 09/29/21 zolpidem 10 mg tablet 10 mg PO BEDTIME PRN 02/13/20 09/29/21 apremilast 10 mg (4)-20 mg (4)-30 See Rx Instructions PO PER PKG DIR 05/06/21 09/29/21 mg (19) tablets in a dose pack (Otezla Starter) fluticasone propionate 115 2 puff PO Q4-6H PRN 05/06/21 09/29/21 mcg-salmeterol 21 mcg/actuation HFA inhaler (Advair HFA) tiotropium bromide 1.25 2 puff PO QAM 05/06/21 09/29/21 mcg/actuation mist for inhalation (Spiriva Respimat) clobetasol 0.05 % topical ointment 1 appl topical BID 10/19/21 loratadine 10 mg tablet 10 mg PO DAILY 10/19/21 paroxetine HCl 10 mg tablet 10 mg PO DAILY 10/19/21 Previous Rx's Medication Instructions Recorded cyclobenzaprine 10 mg tablet 10 mg PO TID PRN muscle spasm #10 04/19/20 tabs lidocaine 5 % topical ointment 1 appl topical DAILY 30 days #30 07/01/20 grams oxmftsyugo-nqcyjtyvjiyup-ieutqkwy 1 cap PO Q6H PRN headache #20 caps 08/06/20 50 mg-300 mg-40 mg capsule (Fioricet) calcium polycarbophil 625 mg 625 mg PO QID PRN constipation 09/24/20 tablet (Fiber-Lax) #120 tabs albuterol sulfate 90 mcg/actuation 2 puff inhalation Q6H PRN 02/05/21 aerosol inhaler (ProAir HFA) shortness of breath or wheezing 30 days #6.7 grams nebulizers (AeroneCoPromote Go Nebulizer) #1 ea 02/05/21 esomeprazole magnesium 40 mg 40 mg PO DAILY #90 caps 02/13/21 capsule,delayed release blood-glucose meter (FreeStyle #1 ea 05/14/21 Lite Meter kit) lisinopril 10 mg tablet 10 mg PO DAILY 90 days #90 tabs 06/17/21 blood sugar diagnostic (FreeStyle #100 ea 07/03/21 Test strips) lancets 28 gauge (FreeStyle #100 ea 07/03/21 Lancets) meclizine 25 mg tablet 25 mg PO BID PRN dizziness #10 tabs 07/18/21 ondansetron 4 mg disintegrating 4 mg PO Q8H PRN nausea and 07/18/21 tablet vomiting 4 days cephalexin 500 mg capsule 500 mg PO BID 5 days #10 caps 10/03/21 doxycycline hyclate 100 mg capsule 100 mg PO BID 5 days #10 caps 10/03/21 furosemide 40 mg tablet 40 mg PO DAILY #90 tabs 10/26/21 bisacodyl 5 mg tablet,delayed 5 mg PO BEDTIME 90 days #90 tabs 12/09/21 release dulaglutide 0.75 mg/0.5 mL 0.75 mg (0.5 mL) subcut QWEEK 90 12/09/21 subcutaneous pen injector days #6.5 mL (Trulicity) metformin 850 mg tablet 850 mg PO BID 90 days #180 tabs 12/24/21 rosuvastatin 10 mg tablet 10 mg PO BEDTIME 90 days #90 tabs 12/24/21 omalizumab 150 mg/mL subcutaneous 300 mg (2 mL) subcut Q4W 28 days 12/28/21 syringe (Xolair) #2 mL cephalexin 500 mg capsule 500 mg PO QID 7 days #28 caps 01/09/22 diphenhydramine HCl 25 mg tablet 25 mg PO TID PRN allergic reaction 01/09/22 (Benadryl Allergy) 7 days #21 tabs famotidine 20 mg tablet (Pepcid) 20 mg PO BID 5 days #10 tabs 01/09/22 prednisone 20 mg tablet 40 mg PO DAILY 5 days #10 tabs 01/09/22 Allergies Allergy/AdvReac Type Severity Reaction Status Date / Time bee pollen [BEE STINGS] Allergy Intermediate RASH Verified 11/20/21 08:56 SWELLING PAIN FULL. phentermine Allergy Intermediate ANXIETY Verified 11/20/21 08:56 pneumococcal vaccine Allergy Intermediate Swelling Verified 11/20/21 08:56 tramadol Allergy Intermediate stomach Verified 11/20/21 08:56 upset adhesive tape [ADHESIVE TAPE] Allergy Mild RASH Verified 11/20/21 08:56 oxycodone [OXYCODONE] AdvReac Intermediate VOMITING Verified 11/20/21 08:56 Review of Systems Review of Systems: left arm rash Yes all other systems are reviewed and are negative FORMERLY [facility] Past Medical History Medical History Abscess Depression with anxiety Diabetes mellitus Essential hypertension GERD (gastroesophageal reflux disease) Hand numbness Herpes simplex type 2 infection Hospital discharge follow-up Impaired glucose tolerance Insomnia Left knee pain Left leg pain Migraines Mild persistent asthma Mild recurrent major depression Mixed hyperlipidemia Nausea Supraventricular tachycardia Surgical History History of cardiac radiofrequency ablation History of esophagogastroduodenoscopy (EGD) History of removal of cyst History of surgery History of total abdominal hysterectomy Hx of colonoscopy Family History Family History Father Brain cancer Mother Esophageal cancer Sister Breast cancer Paternal Uncle Diabetes Hypertension Social History Social History Household Members: Children Housing: Apartment Alcohol intake: never Patient Tobacco Use Status: Never used Tobacco e-Cigarette/Vaping Use: Never Used Second Hand Smoke Exposure: No Advance Directives: No Advance Directives Information Provided: No service: No Current occupational status: unemployed Cognitive needs: No Hearing needs: No Vision needs: No Physical Exam ED Vital Signs: Vital Signs - 24 hr 01/09/22 19:10 Temperature 97.7 F Pulse Rate 93 Respiratory Rate 20 Blood Pressure 154/95 H Pulse Oximetry 96 Oxygen Delivery Method Room Air BMI result Body Mass Index 35.4 Const General: cooperative, healthy appearing, comfortable, no acute distress, well developed, alert, awake and Physically active Orientation/consciousness: oriented to person, oriented to place, oriented to time and patient oriented x3 HENMT Other: Negative for any facial swelling, lip swelling, tongue swelling, uvual swelling, or drooling Head: Yes normal to inspection, Yes No palpable skull fracture present, Yes normocephalic, Yes atraumatic and No abrasion Eyes General: appearance normal, both eyes and all related structures Neck Neck: Yes normal visual inspection, Yes full ROM, Yes no lymphadenopathy, Yes no meningeal signs, Yes trachea midline, Yes supple, No anterior neck swelling and No tender Chest Chest palpation & inspection: normal inspection of the chest and normal palpation of entire chest wall Resp Effort & Inspection: normal respiratory effort and able to speak in complete sentences Auscultation: clear to auscultation bilaterally Cardio Jugular venous distension: no JVD Heart sounds: S1 normal heart sound present and S2 normal heart sound present GI Inspection: Yes normal to inspection, No abdominal wall ecchymosis, No Abdominal wall edema, No distended, No incision, No Abdominal panniculus present and No obesity Palpation (GI): Soft to palpation, not firm, nontender, no guarding and not rigid General: No CVA tenderness and Yes no CVA tenderness Back/Spine/Pelvis Back: no CVA tenderness, No CVA tenderness and No back tenderness Skin General skin exam: no rashes or lesions noted, elasticity normal and turgor normal Neuro General: oriented to person, oriented to place, oriented to time, patient oriented x3, gait normal, tone normal, no meningeal signs and CN's II-XI intact bilaterally Cranial nerves: Yes CN's II-XII intact bilaterally Extrem General: Yes normal to inspection and Yes full ROM Elbow/forearm/wrist images: 1. positive for redness and blanching. negative for mass or fluctulance on palpation. negative for erythema migrans ( bull's eye). rest of extremity normal. MOtor, neuro, and vascular exam is intact Psych Appearance: grossly normal, well kempt and not disheveled Course Course Course Narrative: Patient will be given Pepcid, Benadryl, prednisone. Reevaluation(s) Reevaluation #1: Similar bee sting allergic reaction. Will discharge also antibiotics. Patient states she was not bitten by tick. Patient still be by her. Keflex needed only Time: 20:51 Medical Decision Making MDM Narrative Medical decision making narrative: bee sting Discharge Plan Discharge Clinical Impression: Bee sting Patient Disposition: Home, Self-Care Instructions: Cellulitis (ED), Insect Bite or Sting (ED), General Allergic Reaction (ED) Additional Instructions: La picadura de abeja causa hair reacci?n al?rgica. Ser? dado de kwabena con Benadryl, esteroide y Pepcid. Tambi?n ser? dado de kwabena con antibi?ticos por picadura de abeja que le provoca celulitis. Regrese al servicio de urgencias de inmediato si tiene fiebre, escalofr?os, empeoramiento del enrojecimiento, aumento de la hinchaz?n, vetas cruz, drenaje de pus, fiebre, escalofr?os, dolor en el pecho, dificultad para respirar o cualquier s?ntoma actual preocupante. Por favor, todd un seguimiento con el PCP. Prescriptions: New prednisone 20 mg tablet 40 mg PO DAILY 5 Days Qty: 10 0RF diphenhydramine HCl [Benadryl Allergy] 25 mg tablet 25 mg PO TID PRN (Reason: allergic reaction) 7 Days Qty: 21 0RF famotidine [Pepcid] 20 mg tablet 20 mg PO BID 5 Days Qty: 10 0RF cephalexin 500 mg capsule 500 mg PO QID 7 Days Qty: 28 0RF No Action calcium polycarbophil [Fiber-Lax] 625 mg tablet 625 mg PO QID PRN (Reason: constipation) Qty: 120 6RF Rx Instructions: Take 1 tablet by mouth two to four times daily as needed for constipation - drink plenty of water with tablets (DME) Aeroneb Go Nebulizer Misc See Rx Instructions .Route Qty: 1 0RF Rx Instructions: As directed albuterol sulfate [ProAir HFA] 90 mcg/actuation HFA aerosol inhaler 2 puff inhalation Q6H PRN (Reason: shortness of breath or wheezing) 30 Days Qty: 6.7 1RF (DME) blood-glucose meter [FreeStyle Lite Meter] Kit See Rx Instructions .Route Qty: 1 0RF Rx Instructions: As directed (DME) lancets [FreeStyle Lancets] 28 gauge misc See Rx Instructions .Route Qty: 100 3RF Rx Instructions: Use 1 lancet once a day (DME) FreeStyle Test Strip See Rx Instructions .Route Qty: 100 3RF Rx Instructions: Use 1 test strip once a day furosemide 40 mg tablet 40 mg PO DAILY Qty: 90 0RF bisacodyl 5 mg tablet,delayed release (DR/EC) 5 mg PO BEDTIME 90 Days Qty: 90 1RF Trulicity 0.75 mg/0.5 mL pen injector 0.75 mg subcut QWEEK 90 Days Qty: 6.5 1RF metformin 850 mg tablet 850 mg PO BID 90 Days Qty: 180 1RF rosuvastatin 10 mg tablet 10 mg PO BEDTIME 90 Days Qty: 90 1RF Xolair 150 mg/mL syringe 300 mg subcut Q4W 28 Days Qty: 2 12RF cyclobenzaprine 10 mg tablet 10 mg PO TID PRN (Reason: muscle spasm) Qty: 10 0RF sgjpwnitov-fldpgwnupqcto-knyk [Fioricet] 50-300-40 mg capsule 1 cap PO Q6H PRN (Reason: headache) Qty: 20 0RF meclizine 25 mg tablet 25 mg PO BID PRN (Reason: dizziness) Qty: 10 0RF ondansetron 4 mg tablet,disintegrating 4 mg PO Q8H PRN (Reason: nausea and vomiting) 4 Days 0RF doxycycline hyclate 100 mg capsule 100 mg PO BID 5 Days Qty: 10 0RF cephalexin 500 mg capsule 500 mg PO BID 5 Days Qty: 10 0RF lidocaine 5 % ointment 1 appl topical DAILY 30 Days Qty: 30 6RF lorazepam 1 mg tablet 1 mg PO QID PRN zolpidem 10 mg tablet 10 mg PO BEDTIME PRN mometasone 0.1 % ointment topical topiramate 100 mg tablet 100 mg PO DAILY peg-electrolyte soln 420 gram recon soln PO Spiriva Respimat 1.25 mcg/actuation mist 2 puff PO QAM Advair HFA 115-21 mcg/actuation HFA aerosol inhaler 2 puff PO Q4-6H PRN Otezla Starter 10 mg (4)-20 mg (4)-30 mg(19) tablets,dose pack See Rx Instructions PO PER PKG DIR Rx Instructions: PO PER PKG DIR lisinopril 10 mg tablet 10 mg PO DAILY 90 Days Qty: 90 1RF Hold Instructions: Doctor's Order esomeprazole magnesium 40 mg capsule,delayed release(DR/EC) 40 mg PO DAILY Qty: 90 1RF clobetasol 0.05 % ointment 1 appl topical BID paroxetine HCl 10 mg tablet 10 mg PO DAILY loratadine 10 mg tablet 10 mg PO DAILY Referrals: Kayy Escobar MD [Primary Care Provider] - (bee sting allergic reaction. cellulitis) Stand Alone Forms: Work/School Release Interventions: ED Discharge Assessment Last Done: 01/09/22 21:11 Discharge Date/Time: 01/09/22 21:12 Print Language: Chilean
[2022-01-09] MEDS: Famotidine 20 MG TABLET PO (20:48)
[2022-01-09] MEDS: predniSONE 20 MG TABLET 60 MG PO (20:48)
[2022-01-09] MEDS: diphenhydrAMINE HCL 25 MG CAPSULE 50 MG PO (20:48)
== END 2022-01-09 21:12 | disposition home or self-care (01) ==
PROVIDERS: Emergency Provider Student in an Organized Health Care Education/Training Program; PCP Internal Medicine
DX: T63.441A Toxic effect of venom of bees, accidental (unintentional), initial encounter (principal); Y92.9 Unspecified place or not applicable
CPT/HCPCS: 99282; 99283

== ENCOUNTER 2022-01-13 08:40 | Outpatient (REF) | payer OTHER, SELFPAY ==
[2022-01-13 09:51] LABS: Alanine Aminotransferase 29 U/L (0-31); Albumin Level 4.2 g/dL (3.5-5.0); Alkaline Phosphatase 80 U/L (39-117); Anion Gap 19 (12-20); Aspartate Amino Transferase 21 U/L (5-31); Bilirubin Total 0.7 mg/dL (0.0-1.0); Blood Urea Nitrogen 11 mg/dL (9-16); Calcium 9.2 mg/dL (8.4-10.2); Carbon Dioxide 23 mmol/L (22-29); Chloride 103 mmol/L (96-108); Cholesterol 228 mg/dL; Estimated Glomerular Filt Rate > 60; Glucose Fasting 127 mg/dL (60-99); HDL Cholesterol 46 mg/dL; Potassium 4.2 mmol/L (3.3-5.1); Sodium 141 mmol/L (135-145); Triglycerides 424 mg/dL; Vitamin D 25-OH Total 19.6 ng/mL (>30)
[2022-01-13 13:47] LABS: Creatinine Urine 124.85 mg/dL; Microalbum/Creatinine Ratio Ur 6.4 ug/mg cr
== END 2022-01-13 08:41 | disposition home or self-care (01) ==
LOC: HO.LAB 08:40
PROVIDERS: PCP Internal Medicine; Visit Provider Internal Medicine
DX: E55.9 Vitamin D deficiency, unspecified (principal); E11.9 Type 2 diabetes mellitus without complications; E78.5 Hyperlipidemia, unspecified; I10 Essential (primary) hypertension
CPT/HCPCS: 36415; 80053; 80061; 82043; 82306

== ENCOUNTER 2022-01-22 08:28 | Outpatient (REF) | payer OTHER, SELFPAY ==
--- NOTE | ~2022-01-22 | XR_ITS ---
EXAMINATION: XR foot RT 2V, XR foot LT 2V CLINICAL INFORMATION: Pain in foot COMPARISON: Foot radiographs 08/01/2019 and 11/14/2016 TECHNIQUE: 3 views of the bilateral feet FINDINGS: RIGHT FOOT: No fracture or dislocation. Mild degenerative changes of the foot with degenerative spurring of the dorsal midfoot and Achilles tendon and plantar calcaneal spurring. 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 No joint effusion. Soft tissues are unremarkable. LEFT FOOT: No fracture or dislocation. Mild degenerative changes of the foot with Achilles tendon enthesopathy and degenerative spurring of the dorsal midfoot. No joint effusion. Soft tissue swelling is noted along the lateral aspect of the fifth metatarsophalangeal joint. XR/XR foot RT 2V IMPRESSION: RIGHT FOOT: 1. 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 LEFT FOOT: 1. Soft tissue swelling is noted along the lateral aspect of the fifth metatarsophalangeal joint. 2. Mild degenerative changes of the foot.
--- NOTE | ~2022-01-22 | XR_ITS ---
EXAMINATION: XR foot RT 2V, XR foot LT 2V CLINICAL INFORMATION: Pain in foot COMPARISON: Foot radiographs 08/01/2019 and 11/14/2016 TECHNIQUE: 3 views of the bilateral feet FINDINGS: RIGHT FOOT: No fracture or dislocation. Mild degenerative changes of the foot with degenerative spurring of the dorsal midfoot and Achilles tendon and plantar calcaneal spurring. 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 No joint effusion. Soft tissues are unremarkable. LEFT FOOT: No fracture or dislocation. Mild degenerative changes of the foot with Achilles tendon enthesopathy and degenerative spurring of the dorsal midfoot. No joint effusion. Soft tissue swelling is noted along the lateral aspect of the fifth metatarsophalangeal joint. XR/XR foot LT 2V IMPRESSION: RIGHT FOOT: 1. 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 LEFT FOOT: 1. Soft tissue swelling is noted along the lateral aspect of the fifth metatarsophalangeal joint. 2. Mild degenerative changes of the foot.
[2022-01-22 10:09] LABS: Alanine Aminotransferase 33 U/L (0-31); Alkaline Phosphatase 75 U/L (39-117); Anion Gap 18 (12-20); Aspartate Amino Transferase 25 U/L (5-31); Bilirubin Total 0.7 mg/dL (0.0-1.0); Blood Urea Nitrogen 9 mg/dL (9-16); Calcium 9.6 mg/dL (8.4-10.2); Carbon Dioxide 24 mmol/L (22-29); Chloride 104 mmol/L (96-108); Cholesterol 229 mg/dL; Estimated Glomerular Filt Rate > 60; Glucose Random 127 mg/dL (60-115); HDL Cholesterol 47 mg/dL; LDL Cholesterol Calculated 135 mg/dl; Potassium 4.1 mmol/L (3.3-5.1); Sodium 142 mmol/L (135-145); Total Protein 6.9 g/dL (6.5-8.0); Triglycerides 237 mg/dL
[2022-01-22 10:21] LABS: Creatinine Urine 205.97 mg/dL; Microalbum/Creatinine Ratio Ur 5.3 ug/mg cr
[2022-01-22 11:30] LABS: Albumin Level 4.3 g/dL (3.5-5.0); Vitamin D 25-OH Total 25.7 ng/mL (>30)
== END 2022-01-22 08:29 | disposition home or self-care (01) ==
LOC: HO.LAB 08:28
PROVIDERS: PCP Internal Medicine; Visit Provider Internal Medicine
DX: M79.672 Pain in left foot (principal); M79.671 Pain in right foot; E11.9 Type 2 diabetes mellitus without complications; E55.9 Vitamin D deficiency, unspecified; E78.5 Hyperlipidemia, unspecified
CPT/HCPCS: 36415; 73620; 80053; 80061; 82043; 82306

== ENCOUNTER → 2022-01-25 15:20 | Outpatient (BNVA) | payer OTHER, SELFPAY | PROVIDERS: PCP Internal Medicine; Visit Provider Internal Medicine Gastroenterology | DX: K21.9 Gastro-esophageal reflux disease without esophagitis (principal) | CPT/HCPCS: Q3014 ==

== ENCOUNTER 2022-01-26 08:22 | Outpatient (REF) | payer OTHER, SELFPAY | END 2022-01-26 08:23 | disposition home or self-care (01) | LOC: HO.MDS 08:22 | PROVIDERS: Visit Provider Internal Medicine Pulmonary Disease | DX: J45.50 Severe persistent asthma, uncomplicated (principal) | CPT/HCPCS: 96372 ==

== ENCOUNTER → 2022-02-19 08:45 | Outpatient (BNVA) | payer OTHER, SELFPAY | PROVIDERS: PCP Internal Medicine; Visit Provider Internal Medicine Pulmonary Disease | DX: J45.909 Unspecified asthma, uncomplicated (principal); Z91.09 Other allergy status, other than to drugs and biological substances; Z79.899 Other long term (current) drug therapy | CPT/HCPCS: 99212 ==

== ENCOUNTER 2022-02-22 08:50 | Outpatient (REF) | payer OTHER, SELFPAY | END 2022-02-22 08:51 | disposition home or self-care (01) | LOC: HO.MDS 08:50 | PROVIDERS: Visit Provider Internal Medicine Pulmonary Disease | DX: J45.50 Severe persistent asthma, uncomplicated (principal) | CPT/HCPCS: 96372 ==

== ENCOUNTER 2022-03-14 09:22 | Emergency (ER) | payer OTHER, SELFPAY ==
--- NOTE | ~2022-03-14 | CT_ITS ---
EXAMINATION: CT ABDOMEN AND PELVIS WITHOUT CONTRAST CLINICAL INFORMATION: Left flank pain. Kidney stone. COMPARISON: CT abdomen pelvis 06/21/2021. CT 03/03/2016 TECHNIQUE: Multidetector volumetric imaging was performed from the superior aspect of the liver through the pubic symphysis. Sagittal and coronal reformatted images were obtained on the technologist's workstation. This CT examination was performed using dose optimization techniques as appropriate, variously including the following: *Automated exposure control *Adjustment of mA and/or kV according to patient size (this includes techniques or standardized protocols for targeted exams where dose is matched to indication/reason for exam; i.e. extremities or head) *Use of iterative reconstruction technique DLP: 913 mGy-cm FINDINGS: LUNG BASES: The visualized lung bases are unremarkable. LIVER, GALLBLADDER, AND BILIARY TREE: The liver is normal in size, shape, and attenuation. No focal hepatic lesion or biliary ductal dilatation is present. The gallbladder is unremarkable with no evidence of radiopaque gallstones, gallbladder wall thickening, or obvious pericholecystic inflammatory changes. PANCREAS: Unremarkable. SPLEEN: Unremarkable. ADRENAL GLANDS: Unremarkable. KIDNEYS AND URETERS: *Single 2 mm calculus within the inferior pole the right kidney. *Punctate 1 mm calculus inferior pole the left kidney (series 4 image 356). 2 mm punctate calculus superior pole left kidney (series 4 image 285). Single 1 mm calculus superior pole left kidney (series 4 image 272). No left ureteral calculi identified. No ureterectasis. No perinephric inflammatory changes. A 2.5 cm x 1.0 cm x 3.5 cm (lateral by AP by SI) retroperitoneal lobulated density immediately anterior to the left psoas muscle with a small number of associated punctate calcifications is noted and is unchanged compared with 02/24/2016. No adjacent inflammatory changes. This finding is suspicious for an incidental retroperitoneal soft tissue hemangioma. BLADDER: Unremarkable. GASTROINTESTINAL TRACT: Normal appendix. No free intraperitoneal fluid or gas collections. No intestinal dilatation or mural thickening. ABDOMINAL WALL: No significant hernia is appreciated. LYMPH NODES: Normal. VASCULAR: Minimal punctate scattered calcific atherosclerosis. PELVIC VISCERA: Uterus is absent. No adnexal lesions. OSSEOUS STRUCTURES: Mild multilevel anterior endplate osteophytosis of the thoracic spine. CT/CT abdomen pelvis wo IV con IMPRESSION: 1. No acute abnormalities identified. 2. Small number of bilateral punctate nonobstructing renal calculi measuring up to 2 mm in diameter. No ureteral calculi. No hydronephrosis or ureterectasis. No evidence of acute obstructive uropathy. 3. Status post hysterectomy. 4. Unchanged 2.5 cm x 1.0 cm x 3.5 cm (lateral by AP by SI) left retroperitoneal soft tissue mass immediately anterior to the left psoas muscle unchanged compared with 02/24/2016 suspicious for an soft tissue incidental hemangioma.
[2022-03-14 09:34] VITALS: BP 131/92; PULSE 99; RESP 18; TEMP 36.6; O2SAT 98; BMI 35.2
[2022-03-14 10:36] LABS: MANUAL DIFF FLAG NO
[2022-03-14 10:41] LABS: Basophils Percent Auto 0.5 % (0-2); Eosinophils Absolute Auto 0.3 X10*3/uL (0.0-0.4); Eosinophils Percent Auto 3.5 % (0-4); Hematocrit 41.9 % (37.0-47.0); Hemoglobin 13.7 g/dl (12.0-16.0); Imm Gran Abs Auto 0.04 X10*3/uL (0.00-0.03); Imm Gran Pct Auto 0.5 % (0.0-0.4); Lymphocytes Percent Auto 40.4 % (20-40); Mean Corpuscular HGB Conc 32.7 g/dl (31.0-35.0); Mean Corpuscular Hemoglobin 28.7 pg (27.0-33.0); Mean Corpuscular Volume 87.8 fL (80.0-98.0); Mean Platelet Volume 8.7 fL (9.4-12.3); Monocytes Absolute Auto 0.5 X10*3/uL (0.1-1.2); Monocytes Percent Auto 7.1 % (2-11); Neutrophils Absolute Auto 3.6 x10*3/uL (2.0-8.3); Platelet Count 280 X10*3/uL (160-400); Red Blood Count 4.77 X10*6/uL (4.20-5.50); Red Cell Distribution Width 12.6 % (11.0-16.0); White Blood Count 7.5 X10*3/uL (4.8-10.8)
[2022-03-14 10:48] LABS: INTERNATIONAL NORM RATIO 0.9 (0.9-1.1); Prothrombin Time 9.8 SEC (10.0-13.1)
[2022-03-14 10:50] LABS: Partial Thromboplastin Time 31.1 SEC (26.0-36.4)
[2022-03-14 10:54] LABS: Alanine Aminotransferase 24 U/L (0-31); Albumin Level 4.4 g/dL (3.5-5.0); Alkaline Phosphatase 86 U/L (39-117); Anion Gap 13 (12-20); Aspartate Amino Transferase 20 U/L (5-31); Bilirubin Total 0.7 mg/dL (0.0-1.0); Blood Urea Nitrogen 13 mg/dL (9-16); Carbon Dioxide 27 mmol/L (22-29); Chloride 107 mmol/L (96-108); Creatinine Clr Calc Pharmacy 98.8; Estimated Glomerular Filt Rate > 60; Glucose Random 143 mg/dL (60-115); Potassium 4.2 mmol/L (3.3-5.1); Sodium 143 mmol/L (135-145); Total Protein 6.6 g/dL (6.5-8.0)
[2022-03-14 11:19] VITALS: BP 134/86; PULSE 81; RESP 16; TEMP 37; O2SAT 98
[2022-03-14 11:45] LABS: Influenza A PCR NEGATIVE (Negative); Influenza B PCR NEGATIVE (Negative); Resp Syncy Virus RNA Qual PCR NEGATIVE (Negative); SARS COV2 PCR INHOUSE NEGATIVE (Negative)
[2022-03-14] MEDS: Morphine Sulfate 4 MG/ML CARTRIDGE IM (12:37)
--- NOTE | 2022-03-14 12:39 | PC.NURSE ---
Multiple IV attempts, medications changed to IM. Medicated per the MAR. Awaiting CT scan
[2022-03-14 13:36] VITALS: BP 133/88; PULSE 84; RESP 16; O2SAT 98
--- NOTE | 2022-03-14 14:02 | ED_ITS ---
HPI - Female Genitourinary General Chief complaint: Urogenital-Female Stated complaint: back pain, sore throat Time Seen by Provider: 03/14/22 10:01 Source: patient Mode of arrival: ambulatory Limitations: no limitations History of Present Illness HPI Narrative: 56-year-old female with past medical history of kidney stones presents to ED for left leg pain nausea and vomiting and diarrhea since yesterday. She denies any fever, chills, hematuria. Related Data Home Medications Medication Instructions Recorded Confirmed lorazepam 1 mg tablet 1 mg PO QID PRN 02/13/20 02/19/22 mometasone 0.1 % topical ointment topical 02/13/20 02/19/22 peg-electrolyte solution 420 gram ml PO 02/13/20 02/19/22 oral solution topiramate 100 mg tablet 100 mg PO DAILY 02/13/20 02/19/22 zolpidem 10 mg tablet 10 mg PO BEDTIME PRN 02/13/20 02/19/22 apremilast 10 mg (4)-20 mg (4)-30 See Rx Instructions PO PER PKG DIR 05/06/21 02/19/22 mg (19) tablets in a dose pack (Otezla Starter) fluticasone propionate 115 2 puff PO Q4-6H PRN 05/06/21 02/19/22 mcg-salmeterol 21 mcg/actuation HFA inhaler (Advair HFA) tiotropium bromide 1.25 2 puff PO QAM 05/06/21 02/19/22 mcg/actuation mist for inhalation (Spiriva Respimat) clobetasol 0.05 % topical ointment 1 appl topical BID 10/19/21 02/19/22 loratadine 10 mg tablet 10 mg PO DAILY 10/19/21 02/19/22 paroxetine HCl 10 mg tablet 10 mg PO DAILY 10/19/21 02/19/22 epinephrine 0.3 mg/0.3 mL IM ONCE 01/25/22 02/19/22 injection, auto-injector Previous Rx's Medication Instructions Recorded calcium polycarbophil 625 mg 625 mg PO QID PRN constipation 09/24/20 tablet (Fiber-Lax) #120 tabs albuterol sulfate 90 mcg/actuation 2 puff inhalation Q6H PRN 02/05/21 aerosol inhaler (ProAir HFA) shortness of breath or wheezing 30 days #6.7 grams nebulizers (Aeroneb Go Nebulizer) #1 ea 02/05/21 esomeprazole magnesium 40 mg 40 mg PO DAILY #90 caps 02/13/21 capsule,delayed release blood-glucose meter (FreeStyle #1 ea 05/14/21 Lite Meter kit) lisinopril 10 mg tablet 10 mg PO DAILY 90 days #90 tabs 06/17/21 blood sugar diagnostic (FreeStyle #100 ea 07/03/21 Test strips) lancets 28 gauge (FreeStyle #100 ea 07/03/21 Lancets) meclizine 25 mg tablet 25 mg PO BID PRN dizziness #10 tabs 07/18/21 ondansetron 4 mg disintegrating 4 mg PO Q8H PRN nausea and 07/18/21 tablet vomiting 4 days furosemide 40 mg tablet 40 mg PO DAILY #90 tabs 10/26/21 bisacodyl 5 mg tablet,delayed 5 mg PO BEDTIME 90 days #90 tabs 12/09/21 release metformin 850 mg tablet 850 mg PO BID 90 days #180 tabs 12/24/21 famotidine 20 mg tablet (Pepcid) 20 mg PO BID 5 days #10 tabs 01/09/22 dulaglutide 1.5 mg/0.5 mL 1.5 mg (0.5 mL) subcut QWEEK 90 01/12/22 subcutaneous pen injector days #6.5 mL (Trulicity) lidocaine 5 % topical ointment 1 appl topical DAILY 30 days #30 01/12/22 grams cholecalciferol (vitamin D3) 50 50 mcg PO DAILY 90 days #90 caps 01/21/22 mcg (2,000 unit) capsule diclofenac sodium 1 % topical gel 2 g topical QID PRN pain 30 days 01/21/22 #100 grams fenofibrate 54 mg tablet 54 mg PO DAILY 90 days #90 tabs 01/21/22 rosuvastatin 40 mg tablet 40 mg PO DAILY 90 days #90 tabs 01/21/22 cyclobenzaprine 10 mg tablet 10 mg PO TID PRN muscle spasm 7 03/14/22 days #21 tabs naproxen 500 mg tablet 500 mg PO BID PRN pain 7 days #14 03/14/22 tabs prednisone 20 mg tablet 40 mg PO DAILY 5 days #10 tabs 03/14/22 Allergies Allergy/AdvReac Type Severity Reaction Status Date / Time bee pollen [BEE STINGS] Allergy Intermediate RASH Verified 02/19/22 09:07 SWELLING PAIN FULL. phentermine Allergy Intermediate ANXIETY Verified 02/19/22 09:07 pneumococcal vaccine Allergy Intermediate Swelling Verified 02/19/22 09:07 tramadol Allergy Intermediate stomach Verified 02/19/22 09:07 upset adhesive tape [ADHESIVE TAPE] Allergy Mild RASH Verified 02/19/22 09:07 oxycodone [OXYCODONE] AdvReac Intermediate VOMITING Verified 02/19/22 09:07 Review of Systems Review of Systems: Left flank pain with nausea and vomiting Yes all other systems are reviewed and are negative [facility] Past Medical History Medical History Abscess Depression with anxiety Diabetes mellitus Essential hypertension GERD (gastroesophageal reflux disease) Hand numbness Herpes simplex type 2 infection Hospital discharge follow-up Impaired glucose tolerance Insomnia Left knee pain Left leg pain Migraines Mild persistent asthma Mild recurrent major depression Mixed hyperlipidemia Nausea Supraventricular tachycardia Surgical History History of cardiac radiofrequency ablation History of esophagogastroduodenoscopy (EGD) History of removal of cyst History of surgery History of total abdominal hysterectomy Hx of colonoscopy Family History Family History Father Brain cancer Mother Esophageal cancer Sister Breast cancer Paternal Uncle Diabetes Hypertension Social History Social History Household Members: Children Housing: House Alcohol intake: never Patient Tobacco Use Status: Never used Tobacco e-Cigarette/Vaping Use: Never Used Second Hand Smoke Exposure: No Advance Directives: No Advance Directives Information Provided: Yes service: No Current occupational status: unemployed Sexual orientation: Straight/Heterosexual Gender identity: Female Cognitive needs: No Hearing needs: No Vision needs: No Physical Exam Vital Signs: Vital Signs: Last Vital Signs Temp 98.3 F 03/14/22 18:01 Pulse 86 03/14/22 18:01 Resp 18 03/14/22 18:01 BP 106/73 03/14/22 18:01 Pulse Ox 96 01/08/23 18:01 O2 Del Method 03/14/22 18:01 BMI result Body Mass Index 35.2 Const: General: cooperative, healthy appearing, comfortable, no acute distress, well developed, alert, awake and Physically active Orientation/consciousness: oriented to person, oriented to place, oriented to time and patient oriented x3 HEENT: Head: Yes normal to inspection, Yes No palpable skull fracture present, Yes normocephalic and Yes atraumatic Eyes: General: appearance normal, both eyes and all related structures Neck: Neck: Yes normal visual inspection, Yes full ROM, Yes no lymphadenopathy, Yes no meningeal signs, Yes trachea midline, Yes supple, No anterior neck swelling and No tender Chest: Chest palpation & inspection: normal inspection of the chest and normal palpation of entire chest wall Resp: Effort & Inspection: normal respiratory effort and able to speak in complete sentences Auscultation: clear to auscultation bilaterally Cardio: Jugular venous distension: no JVD Heart sounds: S1 normal heart sound present and S2 normal heart sound present GI: Inspection: Yes normal to inspection and No abdominal wall ecchymosis Palpation (GI): Soft to palpation, not firm, nontender, no guarding, not rigid and hepatosplenomegaly present : General: Yes CVA tenderness (left flank) Back/Spine/Pelvis: Back: CVA tenderness (left flank) and back tenderness (left sciatica) Back/spine/pelvis image: 1. tenderness on palpation. negative for ecchymosis, crepitus, or erythema Skin: General skin exam: no rashes or lesions noted and elasticity normal Neuro: General: oriented to person, oriented to place, oriented to time, patient oriented x3, gait normal, tone normal and no meningeal signs Cranial nerves: Yes CN's II-XII intact bilaterally Extrem: General: Yes normal to inspection and Yes full ROM Psych: Appearance: grossly normal, well kempt and not disheveled Course Course Course Narrative: patient will be worked up I have rule out kidney stones. Labs, pain medication, UA, and dry CT scan ordered. Reevaluation(s) Reevaluation #1: labs are normal. CT scan shows retroperitoneal air hemangioma but no kidney stones or signs of pyelonephritis. Shows thoracic spine degenerative disc disease. patient finally gave UA and was negative for UTI. Time: 18:35 Medications Administered Discontinued Medications Generic Name Dose Route Start Last Admin Trade Name Brayan PRN Reason Stop Dose Admin Sodium Chloride 1,000 mls @ 999 mls/hr 03/14/22 11:13 03/14/22 12:25 Ns IV 03/14/22 12:13 Not Given .Q1H1M STA Morphine Sulfate 4 mg 03/14/22 12:16 03/14/22 12:37 Morphine Sulfate 4 Mg/Ml Cartridge IM 03/14/22 12:17 4 mg ONCE ONE Administration Protocol Medical Decision Making Medical Decision Making [facility] Narrative: 56-year-old female history of multiple kidney stones presents to ED for left flank pain. Differential Diagnosis Differential Diagnoses: The differential diagnosis associated with the presentation includes ( Kidney stones, UTI, pyelonephritis, degenerative arthritis,) Admission/Observation sciatica, no need for admission observation Lab Data [facility] Lab Attestation statement: I reviewed the patient's lab results. 03/14/22 10:31 03/14/22 10:31 Labs: Lab Results 03/14/22 03/14/22 03/14/22 Range/Units 10:31 10:31 10:31 WBC 7.5 (4.8-10.8) X10*3/uL RBC 4.77 (4.20-5.50) X10*6/uL Hgb 13.7 (12.0-16.0) g/dl Hct 41.9 (37.0-47.0) % MCV 87.8 (80.0-98.0) fL MCH 28.7 (27.0-33.0) pg MCHC 32.7 (31.0-35.0) g/dl RDW 12.6 (11.0-16.0) % Plt Count 280 (160-400) X10*3/uL MPV 8.7 L (9.4-12.3) fL Immature Gran % (Auto) 0.5 H (0.0-0.4) % Neut % (Auto) 48.0 (45-73) % Lymph % (Auto) 40.4 H (20-40) % Barton % (Auto) 7.1 (2-11) % Eos % (Auto) 3.5 (0-4) % Baso % (Auto) 0.5 (0-2) % Lymph # (Auto) 3.0 (1.2-4.9) X10*3/uL Barton # (Auto) 0.5 (0.1-1.2) X10*3/uL Eos # (Auto) 0.3 (0.0-0.4) X10*3/uL Baso # (Auto) 0.0 (0.0-0.2) X10*3/uL Abs Immat Gran (auto) 0.04 H (0.00-0.03) X10*3/uL Absolute Neuts (auto) 3.6 (2.0-8.3) x10*3/uL Absolute Nucleated RBC 0.000 (0.0-0.012) X10*3/uL Nucleated RBC % (auto) 0.0 (0.0-0.2) /100WBC PT 9.8 L (10.0-13.1) SEC INR 0.9 (0.9-1.1) APTT 31.1 (26.0-36.4) SEC Sodium 143 (135-145) mmol/L Potassium 4.2 (3.3-5.1) mmol/L Chloride 107 (96-108) mmol/L Carbon Dioxide 27 (22-29) mmol/L Anion Gap 13 (12-20) BUN 13 (9-16) mg/dL Creatinine 0.79 (0.5-1.4) mg/dL Estim Creat Clear Calc 98.8 Estimated GFR > 60 Random Glucose 143 H (60-115) mg/dL Calcium 10.0 (8.4-10.2) mg/dL Total Bilirubin 0.7 (0.0-1.0) mg/dL AST 20 (5-31) U/L ALT 24 (0-31) U/L Alkaline Phosphatase 86 (39-117) U/L Total Protein 6.6 (6.5-8.0) g/dL Albumin 4.4 (3.5-5.0) g/dL Urine Color Urine Appearance Urine pH (5.0-9.0) Ur Specific [place] (1.005-1.025) Urine Protein (Neg-Trace) mg/dL Urine Glucose (UA) (Negative) mg/dL Urine Ketones (Negative) mg/dL Urine Blood (Negative) Urine Nitrite (Negative) Ur Leukocyte Esterase (Negative) Influenza Type A (PCR) (Negative) Influenza Type B (PCR) (Negative) RSV RNA Qual (PCR) (Negative) SARS-CoV-2 RNA (RT-PCR) (Negative) 03/14/22 03/14/22 Range/Units 11:03 18:03 WBC (4.8-10.8) X10*3/uL RBC (4.20-5.50) X10*6/uL Hgb (12.0-16.0) g/dl Hct (37.0-47.0) % MCV (80.0-98.0) fL MCH (27.0-33.0) pg MCHC (31.0-35.0) g/dl RDW (11.0-16.0) % Plt Count (160-400) X10*3/uL MPV (9.4-12.3) fL Immature Gran % (Auto) (0.0-0.4) % Neut % (Auto) (45-73) % Lymph % (Auto) (20-40) % Barton % (Auto) (2-11) % Eos % (Auto) (0-4) % Baso % (Auto) (0-2) % Lymph # (Auto) (1.2-4.9) X10*3/uL Barton # (Auto) (0.1-1.2) X10*3/uL Eos # (Auto) (0.0-0.4) X10*3/uL Baso # (Auto) (0.0-0.2) X10*3/uL Abs Immat Gran (auto) (0.00-0.03) X10*3/uL Absolute Neuts (auto) (2.0-8.3) x10*3/uL Absolute Nucleated RBC (0.0-0.012) X10*3/uL Nucleated RBC % (auto) (0.0-0.2) /100WBC PT (10.0-13.1) SEC INR (0.9-1.1) APTT (26.0-36.4) SEC Sodium (135-145) mmol/L Potassium (3.3-5.1) mmol/L Chloride (96-108) mmol/L Carbon Dioxide (22-29) mmol/L Anion Gap (12-20) BUN (9-16) mg/dL Creatinine (0.5-1.4) mg/dL Estim Creat Clear Calc Estimated GFR Random Glucose (60-115) mg/dL Calcium (8.4-10.2) mg/dL Total Bilirubin (0.0-1.0) mg/dL AST (5-31) U/L ALT (0-31) U/L Alkaline Phosphatase (39-117) U/L Total Protein (6.5-8.0) g/dL Albumin (3.5-5.0) g/dL Urine Color Yellow Urine Appearance Cloudy Urine pH 5.0 (5.0-9.0) Ur Specific [place] 1.020 (1.005-1.025) Urine Protein Negative (Neg-Trace) mg/dL Urine Glucose (UA) Negative (Negative) mg/dL Urine Ketones Negative (Negative) mg/dL Urine Blood Negative (Negative) Urine Nitrite Negative (Negative) Ur Leukocyte Esterase Negative (Negative) Influenza Type A (PCR) NEGATIVE (Negative) Influenza Type B (PCR) NEGATIVE (Negative) RSV RNA Qual (PCR) NEGATIVE (Negative) SARS-CoV-2 RNA (RT-PCR) NEGATIVE (Negative) Radiology Impression Discussion of test interpretation with radiology: I have reviewed the radiologist's reading. Discharge Plan Discharge Clinical Impression: Flank pain, Sciatica, Degenerative arthritis Patient Disposition: Home, Self-Care Instructions: Osteoarthritis (ED), Sciatica (ED), Flank Pain (ED) Additional Instructions: Best orina, bajada, y la tomograf?a computarizada resultaron negativas para c?lculos renales. Muestra artritis de la columna tor?cica y hemangioma retroperitoneal. Regrese al servicio de urgencias de inmediato si empeora el dolor en el costado, el dolor abdominal, la disuria, la hematuria, las n?useas, los v?mitos, la presi?n arterial elevada o cualquier otro s?ntoma preocupante. Por favor, todd un seguimiento con el PCP. Prescriptions: New prednisone 20 mg tablet 40 mg PO DAILY 5 Days Qty: 10 0RF naproxen 500 mg tablet 500 mg PO BID PRN (Reason: pain) 7 Days Qty: 14 0RF cyclobenzaprine 10 mg tablet 10 mg PO TID PRN (Reason: muscle spasm) 7 Days Qty: 21 0RF Rx Instructions: side effect is drowsiness. Do not take at work or while driving No Action calcium polycarbophil [Fiber-Lax] 625 mg tablet 625 mg PO QID PRN (Reason: constipation) Qty: 120 6RF Rx Instructions: Take 1 tablet by mouth two to four times daily as needed for constipation - drink plenty of water with tablets (DME) Aeroneb Go Nebulizer [facility] See Rx Instructions .Route Qty: 1 0RF Rx Instructions: As directed albuterol sulfate [ProAir HFA] 90 mcg/actuation HFA aerosol inhaler 2 puff inhalation Q6H PRN (Reason: shortness of breath or wheezing) 30 Days Qty: 6.7 1RF (DME) blood-glucose meter [FreeStyle Lite Meter] Kit See Rx Instructions .Route Qty: 1 0RF Rx Instructions: As directed (DME) lancets [FreeStyle Lancets] [facility] See Rx Instructions .Route Qty: 100 3RF Rx Instructions: Use 1 lancet once a day (DME) FreeStyle Test Strip See Rx Instructions .Route Qty: 100 3RF Rx Instructions: Use 1 test strip once a day furosemide 40 mg tablet 40 mg PO DAILY Qty: 90 0RF bisacodyl 5 mg tablet,delayed release (DR/EC) 5 mg PO BEDTIME 90 Days Qty: 90 1RF metformin 850 mg tablet 850 mg PO BID 90 Days Qty: 180 1RF meclizine 25 mg tablet 25 mg PO BID PRN (Reason: dizziness) Qty: 10 0RF ondansetron 4 mg tablet,disintegrating 4 mg PO Q8H PRN (Reason: nausea and vomiting) 4 Days 0RF famotidine [Pepcid] 20 mg tablet 20 mg PO BID 5 Days Qty: 10 0RF lorazepam 1 mg tablet 1 mg PO QID PRN zolpidem 10 mg tablet 10 mg PO BEDTIME PRN mometasone 0.1 % ointment topical topiramate 100 mg tablet 100 mg PO DAILY peg-electrolyte soln 420 gram recon soln PO Spiriva Respimat 1.25 mcg/actuation mist 2 puff PO QAM Advair HFA 115-21 mcg/actuation HFA aerosol inhaler 2 puff PO Q4-6H PRN Otezla Starter 10 mg (4)-20 mg (4)-30 mg(19) tablets,dose pack See Rx Instructions PO PER PKG DIR Rx Instructions: PO PER PKG DIR lisinopril 10 mg tablet 10 mg PO DAILY 90 Days Qty: 90 1RF Hold Instructions: Doctor's Order diclofenac sodium 1 % gel 2 g topical QID PRN (Reason: pain) 30 Days Qty: 100 1RF Rx Instructions: apply to single elbow, wrist or hand; for hand includes palm/fingers/back of hand rosuvastatin 40 mg tablet 40 mg PO DAILY 90 Days Qty: 90 1RF fenofibrate 54 mg tablet 54 mg PO DAILY 90 Days Qty: 90 1RF cholecalciferol (vitamin D3) 50 mcg (2,000 unit) capsule 50 mcg PO DAILY 90 Days Qty: 90 1RF lidocaine 5 % ointment 1 appl topical DAILY 30 Days Qty: 30 6RF Trulicity 1.5 mg/0.5 mL pen injector 1.5 mg subcut QWEEK 90 Days Qty: 6.5 1RF esomeprazole magnesium 40 mg capsule,delayed release(DR/EC) 40 mg PO DAILY Qty: 90 1RF clobetasol 0.05 % ointment 1 appl topical BID paroxetine HCl 10 mg tablet 10 mg PO DAILY loratadine 10 mg tablet 10 mg PO DAILY epinephrine 0.3 mg/0.3 mL auto-injector IM ONCE Referrals: Kayy Escobar MD [Primary Care Provider] - ( flank pain) Stand Alone Forms: Work/School Release Interventions: ED Discharge Assessment Last Done: 03/14/22 19:50 Discharge Date/Time: 03/14/22 19:50 Print Language: Lithuanian
[2022-03-14 18:01] VITALS: BP 106/73; PULSE 86; RESP 18; TEMP 36.8; O2SAT 96
[2022-03-14 18:13] LABS: Appearance Urine Cloudy; Color Urine Yellow; Glucose Urine UA Negative (Negative); Leukocyte Esterase Urine Negative (Negative); Nitrite Urine Negative (Negative); Urine Blood Negative (Negative); Urine Ketones Negative (Negative); Urine Protein Negative (Neg-Trace)
--- NOTE | 2022-03-14 19:11 | PC.NURSE ---
Assumed care of patient.
--- NOTE | 2022-03-14 19:49 | PC.NURSE ---
Discharge instructions given and explained. Patient ambulates safely and independently. All of patient's questions answered. No apparent distress.
== END 2022-03-14 19:50 | disposition home or self-care (01) ==
PROVIDERS: Physician Assistant; Emergency Provider Emergency Medicine Emergency Medical Services; PCP Internal Medicine
DX: M54.42 Lumbago with sciatica, left side (principal); M79.605 Pain in left leg; R10.9 Unspecified abdominal pain; R11.2 Nausea with vomiting, unspecified; Z20.822 Contact with and (suspected) exposure to COVID-19; Z20.828 Contact with and (suspected) exposure to other viral communicable diseases; Z87.442 Personal history of urinary calculi
CPT/HCPCS: 0241U; 36415; 74176; 80053; 81003; 85025; 85610; 85730; 96361; 96372; 96374; 99284; J2270

== ENCOUNTER 2022-03-22 08:17 | Outpatient (REF) | payer OTHER, SELFPAY | END 2022-03-22 08:18 | disposition home or self-care (01) | LOC: HO.MDS 08:17 | PROVIDERS: Visit Provider Internal Medicine Pulmonary Disease | DX: J45.50 Severe persistent asthma, uncomplicated (principal) | CPT/HCPCS: 96372 ==

== ENCOUNTER → 2022-03-29 19:30 | Outpatient (REF) | payer OTHER, SELFPAY | LOC: HO.SL 19:30 | PROVIDERS: PCP Internal Medicine; Visit Provider Internal Medicine | DX: G47.33 Obstructive sleep apnea (adult) (pediatric) (principal) | CPT/HCPCS: 95810 ==

== ENCOUNTER 2022-04-19 08:13 | Outpatient (REF) | payer OTHER, SELFPAY | END 2022-04-19 08:14 | disposition home or self-care (01) | LOC: HO.MDS 08:13 | PROVIDERS: Visit Provider Internal Medicine Pulmonary Disease | DX: J45.50 Severe persistent asthma, uncomplicated (principal) | CPT/HCPCS: 96372 ==

== ENCOUNTER 2022-05-14 03:56 | Observation (INO) | payer OTHER, SELFPAY ==
[2022-05-14] VITALS (11 sets, daily range): BP systolic 108–138; BP diastolic 66–87; PULSE 74–110; RESP 13–20; TEMP 36.6–37.2; O2SAT 94–100; BMI 35.4
--- NOTE | 2022-05-14 | ECG_ITS ---
Test Reason : epigastric hair,dizziness Blood Pressure : / mmHG Vent. Rate : 099 BPM Atrial Rate : 099 BPM P-R Int : 134 ms QRS Dur : 094 ms QT Int : 378 ms P-R-T Axes : 071 005 037 degrees QTc Int : 485 ms Normal sinus rhythm Prolonged QT Abnormal ECG When compared with ECG of 18-JUL-2021 11:53, No significant change was found Referred By: Generic ED Physician Electronically Signed By:DAVID VILLA
--- NOTE | ~2022-05-14 | CT_ITS ---
EXAMINATION: CT HEAD WITHOUT CONTRAST CLINICAL INFORMATION: Dizziness COMPARISON: 07/18/2021 TECHNIQUE: Contiguous axial imaging was performed from the skull base to vertex without intravenous administration of contrast. This CT examination was performed using dose optimization techniques as appropriate, variously including the following: *Automated exposure control *Adjustment of mA and/or kV according to patient size (this includes techniques or standardized protocols for targeted exams where dose is matched to indication/reason for exam; i.e. extremities or head) *Use of iterative reconstruction technique DLP: 626 mGy-cm FINDINGS: No midline shift. There is no mass effect. There is no hemorrhage. The basal cisterns appear patent. The posterior fossa is grossly within normal limits. No extra-axial collection. Some scattered white matter ischemic changes may be present. Sinus disease noted on the bone windows. Small air-fluid level in the left maxillary sinus. CT/CT head/brain wo IV con IMPRESSION: Negative acute noncontrast CT of the brain. Sinus disease is noted. Small air-fluid level in left maxillary sinus may indicate acute sinus disease
--- NOTE | ~2022-05-14 | CT_ITS ---
EXAMINATION: CT ABDOMEN AND PELVIS WITH CONTRAST CLINICAL INFORMATION: Epigastric pain COMPARISON: 03/14/2022 and 03/03/2016 TECHNIQUE: Multidetector volumetric images were obtained from the superior aspect of the liver through the pubic symphysis following administration 85 mL of Omnipaque 350 intravenous contrast. Sagittal and coronal reformatted images were obtained on the technologist's workstation. Oral contrast: No This CT examination was performed using dose optimization techniques as appropriate, variously including the following: *Automated exposure control *Adjustment of mA and/or kV according to patient size (this includes techniques or standardized protocols for targeted exams where dose is matched to indication/reason for exam; i.e. extremities or head) *Use of iterative reconstruction technique DLP: 843 mGy-cm FINDINGS: IMAGED THORAX: Mild bronchial thickening. Mosaic attenuation. LIVER, GALLBLADDER, AND BILIARY TREE: The liver is normal in size, shape, and attenuation. No focal hepatic lesion or biliary ductal dilatation is present. The gallbladder is unremarkable with no evidence of radiopaque gallstones, gallbladder wall thickening, or obvious pericholecystic inflammatory changes. PANCREAS: Unremarkable. SPLEEN: Unremarkable. ADRENAL GLANDS: Unremarkable. KIDNEYS AND URETERS: The kidneys are normal in size, shape, and attenuation. No hydronephrosis or hydroureter. There is a 3 mm nonobstructing calculus in the lower pole of the right kidney. There are bilateral simple renal cysts which are benign. No follow-up recommended. No perinephric stranding. BLADDER: Unremarkable. GASTROINTESTINAL TRACT: The small and large bowel are unremarkable. The appendix is unremarkable. PERITONEUM: Long-term stability of a soft tissue density structure anterior to the left psoas musculature measuring 3.5 x 1.5 cm transaxially and 43 HU on this post contrast exam (previously [address]) associated with a couple coarse calcifications which may reflect a hemangioma. Regardless of etiology, it is benign. No ascites. ABDOMINAL WALL: No significant hernia is appreciated. LYMPH NODES: Normal. VASCULAR: Unremarkable. PELVIC VISCERA: Hysterectomy. No adnexal abnormalities. OSSEOUS STRUCTURES: No acute or suspicious osseous abnormalities. CT/CT abdomen pelvis w IV con IMPRESSION: * No acute findings within the abdomen or pelvis to explain the patient's symptomatology. * Nonobstructive 3 mm calculus, lower pole right kidney.
--- NOTE | ~2022-05-14 | MR_ITS ---
EXAMINATION: MR BRAIN WITHOUT CONTRAST CLINICAL INFORMATION: Dizziness COMPARISON: Same day CT head without contrast TECHNIQUE: Multiplanar multisequence MR imaging of the brain was obtained without intravenous contrast. FINDINGS: There is no acute infarct on diffusion-weighted imaging. There is no intracranial hemorrhage on iron-sensitive imaging. No extra-axial collection or mass effect/herniation. There are several scattered foci of nonspecific supratentorial white matter T2/FLAIR signal abnormality. No hydrocephalus. The ventricles are normal in morphology and size. The major flow voids at the skull base are preserved. The midline structures are normal. The cerebellar tonsils are normally positioned. The craniocervical junction is normal. Marrow signal is within normal limits. Chronic left lamina papyracea fracture. The visualized soft tissues are without significant abnormality. Mucosal thickening and partial opacification of the ethmoid and maxillary sinuses. MR/MR head/brain wo con IMPRESSION: 1. No acute infarct or other acute intracranial abnormality. 2. Paranasal sinus inflammatory disease
[2022-05-14 04:52] LABS: Glucose, Whole Blood 182 mg/dL (60-115)
[2022-05-14 04:53] LABS: Basophils Percent Auto 0.5 % (0-2); Eosinophils Absolute Auto 0.1 X10*3/uL (0.0-0.4); Hematocrit 39.4 % (37.0-47.0); Hemoglobin 13.6 g/dl (12.0-16.0); Imm Gran Abs Auto 0.03 X10*3/uL (0.00-0.03); Imm Gran Pct Auto 0.5 % (0.0-0.4); Lymphocytes Absolute Auto 2.4 X10*3/uL (1.2-4.9); Lymphocytes Percent Auto 36.8 % (20-40); MANUAL DIFF FLAG NO; Mean Corpuscular HGB Conc 34.5 g/dl (31.0-35.0); Mean Corpuscular Hemoglobin 29.7 pg (27.0-33.0); Mean Platelet Volume 8.8 fL (9.4-12.3); Monocytes Absolute Auto 0.5 X10*3/uL (0.1-1.2); Monocytes Percent Auto 8.5 % (2-11); Neutrophils Absolute Auto 3.3 x10*3/uL (2.0-8.3); Neutrophils Percent Auto 51.7 % (45-73); Platelet Count 240 X10*3/uL (160-400); Red Blood Count 4.58 X10*6/uL (4.20-5.50); White Blood Count 6.4 X10*3/uL (4.8-10.8)
--- NOTE | 2022-05-14 05:08 | ED_ITS ---
HPI - Abdominal Pain General Chief Complaint: Abdominal Pain Stated Complaint: Dizziness Time Seen by Provider: 05/14/22 04:47 Source: patient Mode of arrival: ambulatory Limitations: no limitations History of Present Illness HPI narrative: Patient comes to the emergency room complaining of 3 hours of epigastric pain, nausea and vomiting. Patient states that she has vomited several times, no diarrhea. Patient also complaining of vertigo. Patient states that any time that she moves her head a certain way, she becomes very dizzy, the room starts spinning and she feels more nauseous. Patient states that she has been previously hospitalized for vertigo. Patient denies chest pain or shortness of breath, no URI or UTI symptoms Related Data Home Medications Medication Instructions Recorded Confirmed lorazepam 1 mg tablet 1 mg PO QID PRN 02/13/20 02/19/22 mometasone 0.1 % topical ointment topical 02/13/20 02/19/22 peg-electrolyte solution 420 gram ml PO 02/13/20 02/19/22 oral solution topiramate 100 mg tablet 100 mg PO DAILY 02/13/20 02/19/22 zolpidem 10 mg tablet 10 mg PO BEDTIME PRN 02/13/20 02/19/22 apremilast 10 mg (4)-20 mg (4)-30 See Rx Instructions PO PER PKG DIR 05/06/21 02/19/22 mg (19) tablets in a dose pack (Otezla Starter) fluticasone propionate 115 2 puff PO Q4-6H PRN 05/06/21 02/19/22 mcg-salmeterol 21 mcg/actuation HFA inhaler (Advair HFA) tiotropium bromide 1.25 2 puff PO QAM 05/06/21 02/19/22 mcg/actuation mist for inhalation (Spiriva Respimat) clobetasol 0.05 % topical ointment 1 appl topical BID 10/19/21 02/19/22 loratadine 10 mg tablet 10 mg PO DAILY 10/19/21 02/19/22 paroxetine HCl 10 mg tablet 10 mg PO DAILY 10/19/21 02/19/22 epinephrine 0.3 mg/0.3 mL IM ONCE 01/25/22 02/19/22 injection, auto-injector Previous Rx's Medication Instructions Recorded calcium polycarbophil 625 mg 625 mg PO QID PRN constipation 09/24/20 tablet (Fiber-Lax) #120 tabs albuterol sulfate 90 mcg/actuation 2 puff inhalation Q6H PRN 02/05/21 aerosol inhaler (ProAir HFA) shortness of breath or wheezing 30 days #6.7 grams nebulizers (Aeroneb Go Nebulizer) #1 ea 02/05/21 esomeprazole magnesium 40 mg 40 mg PO DAILY #90 caps 02/13/21 capsule,delayed release blood-glucose meter (FreeStyle #1 ea 05/14/21 Lite Meter kit) lisinopril 10 mg tablet 10 mg PO DAILY 90 days #90 tabs 06/17/21 blood sugar diagnostic (FreeStyle #100 ea 07/03/21 Test strips) lancets 28 gauge (FreeStyle #100 ea 07/03/21 Lancets) meclizine 25 mg tablet 25 mg PO BID PRN dizziness #10 tabs 07/18/21 ondansetron 4 mg disintegrating 4 mg PO Q8H PRN nausea and 07/18/21 tablet vomiting 4 days bisacodyl 5 mg tablet,delayed 5 mg PO BEDTIME 90 days #90 tabs 12/09/21 release metformin 850 mg tablet 850 mg PO BID 90 days #180 tabs 12/24/21 famotidine 20 mg tablet (Pepcid) 20 mg PO BID 5 days #10 tabs 01/09/22 dulaglutide 1.5 mg/0.5 mL 1.5 mg (0.5 mL) subcut QWEEK 90 01/12/22 subcutaneous pen injector days #6.5 mL (Trulicity) lidocaine 5 % topical ointment 1 appl topical DAILY 30 days #30 01/12/22 grams cholecalciferol (vitamin D3) 50 50 mcg PO DAILY 90 days #90 caps 01/21/22 mcg (2,000 unit) capsule diclofenac sodium 1 % topical gel 2 g topical QID PRN pain 30 days 01/21/22 #100 grams fenofibrate 54 mg tablet 54 mg PO DAILY 90 days #90 tabs 01/21/22 rosuvastatin 40 mg tablet 40 mg PO DAILY 90 days #90 tabs 01/21/22 cyclobenzaprine 10 mg tablet 10 mg PO TID PRN muscle spasm 7 03/14/22 days #21 tabs naproxen 500 mg tablet 500 mg PO BID PRN pain 7 days #14 03/14/22 tabs prednisone 20 mg tablet 40 mg PO DAILY 5 days #10 tabs 03/14/22 furosemide 40 mg tablet 40 mg PO DAILY 90 days #90 tabs 04/15/22 Allergies Allergy/AdvReac Type Severity Reaction Status Date / Time bee pollen [BEE STINGS] Allergy Intermediate RASH Verified 02/19/22 09:07 SWELLING PAIN FULL. phentermine Allergy Intermediate ANXIETY Verified 02/19/22 09:07 pneumococcal vaccine Allergy Intermediate Swelling Verified 02/19/22 09:07 tramadol Allergy Intermediate stomach Verified 02/19/22 09:07 upset adhesive tape [ADHESIVE TAPE] Allergy Mild RASH Verified 02/19/22 09:07 oxycodone [OXYCODONE] AdvReac Intermediate VOMITING Verified 02/19/22 09:07 Review of Systems Review of Systems Constitutional : No Weight loss, No Fever, No Chills, No Night Sweats, No Fatigue, No Malaise ENT/Mouth : No Hearing loss, No Ear Pain, No Nasal Congestion, No Sinus Pain, No Hoarseness, No sore throat, No Rhinorrhea, No Swallowing Difficulty Eyes: No Eye Pain, No Swelling, No Redness, No Foreign Body, No Discharge, No Vision Changes Cardiovascular : No Chest Pain, No SOB, No Dyspnea on Exertion, No Orthopnea, No Edema, No Palpitations Respiratory : No Cough, No Sputum, No Wheezing, No Smoke Exposure, No Dyspnea Gastrointestinal : Complaining of nausea and vomiting, No Diarrhea, No Constipation, complaining of epigastric pain, No Hematochezia, No Melena Genitourinary : no irregular bleeding, No Dysuria, No Urinary Frequency, No Hematuria, No Urinary Incontinence, No Urgency, No Flank Pain, No Urinary Flow Changes, No Hesitancy Musculoskeletal : No joint pain, No Myalgias, No Joint Swelling Skin : No Skin Lesions, No rash Neuro : No Weakness, No Numbness, No Paresthesias, No Loss of Consciousness, complaining of dizziness/vertigo/room spinning with head movements Psych : No Anxiety/Panic, No Depression, No SI/HI/AH/VH, No Social Issues, Heme/Lymph: No Bruising, No Bleeding,No Lymphadenopathy Endocrine : No Polyuria, No Polydipsia, No Temperature Intolerance PMFSH Past Medical History Medical History Abscess Depression with anxiety Diabetes mellitus Essential hypertension GERD (gastroesophageal reflux disease) Hand numbness Herpes simplex type 2 infection Hospital discharge follow-up Impaired glucose tolerance Insomnia Left knee pain Left leg pain Migraines Mild persistent asthma Mild recurrent major depression Mixed hyperlipidemia Nausea Supraventricular tachycardia Surgical History History of cardiac radiofrequency ablation History of esophagogastroduodenoscopy (EGD) History of removal of cyst History of surgery History of total abdominal hysterectomy Hx of colonoscopy Family History Family History Father Brain cancer Mother Esophageal cancer Sister Breast cancer Paternal Uncle Diabetes Hypertension Social History Social History Household Members: Children Housing: House Alcohol intake: never Patient Tobacco Use Status: Never used Tobacco e-Cigarette/Vaping Use: Never Used Second Hand Smoke Exposure: No Advance Directives: No Advance Directives Information Provided: No Patient : No service: No Current occupational status: unemployed Sexual orientation: Straight/Heterosexual Gender identity: Female Cognitive needs: No Hearing needs: No Vision needs: No Physical Exam ED Vital Signs: Vital Signs - 24 hr 05/14/22 04:16 05/14/22 04:20 Temperature 97.8 F Pulse Rate 91 89 Respiratory Rate 17 Blood Pressure 124/76 Pulse Oximetry 99 Oxygen Delivery Method Room Air BMI result Body Mass Index 35.4 Const Other: Appearance: Alert. Oriented X3. Patient looks uncomfortable Eyes: Pupils equal, round and reactive to light. No nystagmus ENT: Pharynx normal. Neck: Normal inspection. Neck supple. No lymph nodes noted. No crepitus CVS: Normal heart rate and rhythm. Pulses normal. Normal S1 and S2 Respiratory: No respiratory distress. Breath sounds normal. No Wheezing. No rales Abdomen: Soft , complaining of epigastric pain with palpation and also in the left upper quadrant, No rigidity. No distention. Skin: Skin warm and dry. Normal skin color. Normal skin turgor. Extremities: No lower extremity edema. No Lacerations. No Rash Neuro: Oriented X 3. No motor deficit. No sensory deficit. Moving all extremi ties. No slurred speech. CN 2 through 12 grossly intact Psych: calm, cooperative, normal affect Course Course Course Narrative: -all of patient's labs pending, CT scan pending -patient likely has vertigo. Patient given meclizine in p.o. diazepam Medical Decision Making Medical Decision Making [facility] Narrative: -patient received multiple doses of medication. Patient states that she still feels like the room is spinning. Patient denies headache, chest pain. -CT scan of the abdomen does not show any acute abnormalities. -patient is able to sit up straight and has good truncal stability. However, patient feels very dizzy, states the whole room is spinning and cannot walk. Patient states this is the same thing that happened to her when she got hospitalized for vertigo Differential Diagnosis Differential Diagnoses: The differential diagnosis associated with the presentation includes (Vertigo, orthostatic hypotension) Admission/Observation Consideration of admission/observation: Escalation of care including admission/observation considered Consult Healthcare Provider Management of the patient was discussed with: Hospitalist Lab Data [facility] Lab Attestation statement: I reviewed the patient's lab results. 05/14/22 04:46 05/14/22 04:46 Labs: Lab Results 05/14/22 05/14/22 05/14/22 Range/Units 04:11 04:46 04:46 WBC 6.4 (4.8-10.8) X10*3/uL RBC 4.58 (4.20-5.50) X10*6/uL Hgb 13.6 (12.0-16.0) g/dl Hct 39.4 (37.0-47.0) % MCV 86.0 (80.0-98.0) fL MCH 29.7 (27.0-33.0) pg MCHC 34.5 (31.0-35.0) g/dl RDW 14.0 (11.0-16.0) % Plt Count 240 (160-400) X10*3/uL MPV 8.8 L (9.4-12.3) fL Immature Gran % (Auto) 0.5 H (0.0-0.4) % Neut % (Auto) 51.7 (45-73) % Lymph % (Auto) 36.8 (20-40) % [place] % (Auto) 8.5 (2-11) % Eos % (Auto) 2.0 (0-4) % Baso % (Auto) 0.5 (0-2) % Lymph # (Auto) 2.4 (1.2-4.9) X10*3/uL [place] # (Auto) 0.5 (0.1-1.2) X10*3/uL Eos # (Auto) 0.1 (0.0-0.4) X10*3/uL Baso # (Auto) 0.0 (0.0-0.2) X10*3/uL Abs Immat Gran (auto) 0.03 (0.00-0.03) X10*3/uL Absolute Neuts (auto) 3.3 (2.0-8.3) x10*3/uL Absolute Nucleated RBC 0.000 (0.0-0.012) X10*3/uL Nucleated RBC % (auto) 0.0 (0.0-0.2) /100WBC Sodium 144 (135-145) mmol/L Potassium 3.4 (3.3-5.1) mmol/L Chloride 108 (96-108) mmol/L Carbon Dioxide 21 L (22-29) mmol/L Anion Gap 18 (12-20) BUN 6 L (9-16) mg/dL Creatinine 0.74 (0.5-1.4) mg/dL Estim Creat Clear Calc 104.5 Estimated GFR > 60 POC Glucose 182 H (60-115) mg/dL Random Glucose 188 H (60-115) mg/dL Calcium 9.6 (8.4-10.2) mg/dL Total Bilirubin 0.9 (0.0-1.0) mg/dL Direct Bilirubin 0.3 (0.0-0.5) mg/dL AST 23 (5-31) U/L ALT 34 H (0-31) U/L Alkaline Phosphatase 72 (39-117) U/L Troponin I High Sens (<3.5-17.0) ng/L Total Protein 6.2 L (6.5-8.0) g/dL Albumin 4.2 (3.5-5.0) g/dL Lipase 15 (8-78) U/L 05/14/22 Range/Units 04:46 WBC (4.8-10.8) X10*3/uL RBC (4.20-5.50) X10*6/uL Hgb (12.0-16.0) g/dl Hct (37.0-47.0) % MCV (80.0-98.0) fL MCH (27.0-33.0) pg MCHC (31.0-35.0) g/dl RDW (11.0-16.0) % Plt Count (160-400) X10*3/uL MPV (9.4-12.3) fL Immature Gran % (Auto) (0.0-0.4) % Neut % (Auto) (45-73) % Lymph % (Auto) (20-40) % [place] % (Auto) (2-11) % Eos % (Auto) (0-4) % Baso % (Auto) (0-2) % Lymph # (Auto) (1.2-4.9) X10*3/uL [place] # (Auto) (0.1-1.2) X10*3/uL Eos # (Auto) (0.0-0.4) X10*3/uL Baso # (Auto) (0.0-0.2) X10*3/uL Abs Immat Gran (auto) (0.00-0.03) X10*3/uL Absolute Neuts (auto) (2.0-8.3) x10*3/uL Absolute Nucleated RBC (0.0-0.012) X10*3/uL Nucleated RBC % (auto) (0.0-0.2) /100WBC Sodium (135-145) mmol/L Potassium (3.3-5.1) mmol/L Chloride (96-108) mmol/L Carbon Dioxide (22-29) mmol/L Anion Gap (12-20) BUN (9-16) mg/dL Creatinine (0.5-1.4) mg/dL Estim Creat Clear Calc Estimated GFR POC Glucose (60-115) mg/dL Random Glucose (60-115) mg/dL Calcium (8.4-10.2) mg/dL Total Bilirubin (0.0-1.0) mg/dL Direct Bilirubin (0.0-0.5) mg/dL AST (5-31) U/L ALT (0-31) U/L Alkaline Phosphatase (39-117) U/L Troponin I High Sens < 3.5 (<3.5-17.0) ng/L Total Protein (6.5-8.0) g/dL Albumin (3.5-5.0) g/dL Lipase (8-78) U/L Radiology Impression Discussion of test interpretation with radiology: I have reviewed the radiologist's reading. Radiologist Impression: INDINGS: IMAGED THORAX: Mild bronchial thickening. Mosaic attenuation.? LIVER, GALLBLADDER, AND BILIARY TREE: The liver is normal in size, shape, and attenuation. No focal hepatic lesion or biliary ductal dilatation is present. The gallbladder is unremarkable with no evidence of radiopaque gallstones, gallbladder wall thickening, or obvious pericholecystic inflammatory changes.? PANCREAS: Unremarkable.? SPLEEN: Unremarkable.? ADRENAL GLANDS: Unremarkable.? KIDNEYS AND URETERS: The kidneys are normal in size, shape, and attenuation. No hydronephrosis or hydroureter. There is a 3 mm nonobstructing calculus in the lower pole of the right kidney. There are bilateral simple renal cysts which are benign. No follow-up recommended. No perinephric stranding. ? BLADDER: Unremarkable.? GASTROINTESTINAL TRACT: The small and large bowel are unremarkable. The appendix is unremarkable. PERITONEUM: Long-term stability of a soft tissue density structure anterior to the left psoas musculature measuring 3.5 x 1.5 cm transaxially and 43 HU on this post contrast exam (previously [address]) associated with a couple coarse calcifications which may reflect a hemangioma. Regardless of etiology, it is benign. No ascites. ABDOMINAL WALL: No significant hernia is appreciated.? LYMPH NODES: Normal. VASCULAR: Unremarkable. PELVIC VISCERA: Hysterectomy. No adnexal abnormalities.? OSSEOUS STRUCTURES: No acute or suspicious osseous abnormalities.? CT/CT abdomen pelvis w IV con IMPRESSION: *? No acute findings within the abdomen or pelvis to explain the patient's symptomatology. *? Nonobstructive 3 mm calculus, lower pole right kidney. ? Medications Administered Discontinued Medications Generic Name Dose Route Start Last Admin Trade Name Freq PRN Reason Stop Dose Admin Diazepam 2 mg 05/14/22 05:03 05/14/22 05:10 Diazepam 2 Mg Tablet PO 05/14/22 05:04 2 mg ONCE ONE Administration Iohexol 85 ml 05/14/22 06:07 05/14/22 06:08 Iohexol 350 Mg/Ml 100 Ml Infus..Btl IV 05/14/22 06:08 85 ml ONCE ONE Administration Meclizine HCl 50 mg 05/14/22 05:03 05/14/22 05:10 Meclizine Hcl 25 Mg Tablet PO 05/14/22 05:04 50 mg ONCE ONE Administration Critical Care Time Critical Care Time Critical Care Time: Yes Total Critical Care Time: 40 Attestation: I have personally provided critical care time. Time includes review of lab data, radiology results, discussion with consultants, and monitoring for potential decompensation. Intervention performed as documented. Discharge Plan Discharge Clinical Impression: Benign paroxysmal positional vertigo Patient Disposition: Admitted As Inpatient Prescriptions: No Action calcium polycarbophil [Fiber-Lax] 625 mg tablet 625 mg PO QID PRN (Reason: constipation) Qty: 120 6RF Rx Instructions: Take 1 tablet by mouth two to four times daily as needed for constipation - drink plenty of water with tablets (DME) Aeroneb Go Nebulizer [facility] [place] See Rx Instructions .Route Qty: 1 0RF Rx Instructions: As directed albuterol sulfate [ProAir HFA] 90 mcg/actuation HFA aerosol inhaler 2 puff inhalation Q6H PRN (Reason: shortness of breath or wheezing) 30 Days Qty: 6.7 1RF (DME) blood-glucose meter [FreeStyle Lite Meter] Kit See Rx Instructions .Route Qty: 1 0RF Rx Instructions: As directed (DME) lancets [FreeStyle Lancets] 28 gauge misc See Rx Instructions .Route Qty: 100 3RF Rx Instructions: Use 1 lancet once a day (DME) FreeStyle Test Strip See Rx Instructions .Route Qty: 100 3RF Rx Instructions: Use 1 test strip once a day bisacodyl 5 mg tablet,delayed release (DR/EC) 5 mg PO BEDTIME 90 Days Qty: 90 1RF metformin 850 mg tablet 850 mg PO BID 90 Days Qty: 180 1RF furosemide 40 mg tablet 40 mg PO DAILY 90 Days Qty: 90 3RF meclizine 25 mg tablet 25 mg PO BID PRN (Reason: dizziness) Qty: 10 0RF ondansetron 4 mg tablet,disintegrating 4 mg PO Q8H PRN (Reason: nausea and vomiting) 4 Days 0RF famotidine [Pepcid] 20 mg tablet 20 mg PO BID 5 Days Qty: 10 0RF prednisone 20 mg tablet 40 mg PO DAILY 5 Days Qty: 10 0RF naproxen 500 mg tablet 500 mg PO BID PRN (Reason: pain) 7 Days Qty: 14 0RF cyclobenzaprine 10 mg tablet 10 mg PO TID PRN (Reason: muscle spasm) 7 Days Qty: 21 0RF Rx Instructions: side effect is drowsiness. Do not take at work or while driving lorazepam 1 mg tablet 1 mg PO QID PRN zolpidem 10 mg tablet 10 mg PO BEDTIME PRN mometasone 0.1 % ointment topical topiramate 100 mg tablet 100 mg PO DAILY peg-electrolyte soln 420 gram recon soln PO Spiriva Respimat 1.25 mcg/actuation mist 2 puff PO QAM Advair HFA 115-21 mcg/actuation HFA aerosol inhaler 2 puff PO Q4-6H PRN Otezla Starter 10 mg (4)-20 mg (4)-30 mg(19) tablets,dose pack See Rx Instructions PO PER PKG DIR Rx Instructions: PO PER PKG DIR lisinopril 10 mg tablet 10 mg PO DAILY 90 Days Qty: 90 1RF Hold Instructions: Doctor's Order diclofenac sodium 1 % gel 2 g topical QID PRN (Reason: pain) 30 Days Qty: 100 1RF Rx Instructions: apply to single elbow, wrist or hand; for hand includes palm/fingers/back of hand rosuvastatin 40 mg tablet 40 mg PO DAILY 90 Days Qty: 90 1RF fenofibrate 54 mg tablet 54 mg PO DAILY 90 Days Qty: 90 1RF cholecalciferol (vitamin D3) 50 mcg (2,000 unit) capsule 50 mcg PO DAILY 90 Days Qty: 90 1RF lidocaine 5 % ointment 1 appl topical DAILY 30 Days Qty: 30 6RF Trulicity 1.5 mg/0.5 mL pen injector 1.5 mg subcut QWEEK 90 Days Qty: 6.5 1RF esomeprazole magnesium 40 mg capsule,delayed release(DR/EC) 40 mg PO DAILY Qty: 90 1RF clobetasol 0.05 % ointment 1 appl topical BID paroxetine HCl 10 mg tablet 10 mg PO DAILY loratadine 10 mg tablet 10 mg PO DAILY epinephrine 0.3 mg/0.3 mL auto-injector IM ONCE
[2022-05-14] MEDS: Meclizine HCl 25 MG TABLET 50 MG PO (05:10)
[2022-05-14] MEDS: diazePAM 2 MG TABLET PO (05:10)
[2022-05-14 05:19] LABS: Troponin-I High Sensitivity < 3.5 ng/L (<3.5-17.0)
[2022-05-14 05:21] LABS: Alanine Aminotransferase 34 U/L (0-31); Albumin Level 4.2 g/dL (3.5-5.0); Alkaline Phosphatase 72 U/L (39-117); Anion Gap 18 (12-20); Aspartate Amino Transferase 23 U/L (5-31); Bilirubin Direct 0.3 mg/dL (0.0-0.5); Bilirubin Total 0.9 mg/dL (0.0-1.0); Blood Urea Nitrogen 6 mg/dL (9-16); Calcium 9.6 mg/dL (8.4-10.2); Carbon Dioxide 21 mmol/L (22-29); Chloride 108 mmol/L (96-108); Creatinine Clr Calc Pharmacy 104.5; Estimated Glomerular Filt Rate > 60; Glucose Random 188 mg/dL (60-115); Lipase 15 U/L (8-78); Potassium 3.4 mmol/L (3.3-5.1); Sodium 144 mmol/L (135-145); Total Protein 6.2 g/dL (6.5-8.0)
--- NOTE | 2022-05-14 06:00 | PC.NURSE ---
Pt in imaging department at this time.
[2022-05-14] MEDS: iohexoL 350 MG/ML 100 ML INFUS..BTL 85 ML IV (06:08)
--- NOTE | 2022-05-14 06:52 | PC.NURSE ---
Report to Kaushik LEWIS for continued care.
[2022-05-14] MEDS: diphenhydrAMINE HCL 50 MG/ML VIAL IVPUSH (07:09)
[2022-05-14] MEDS: LORazepam 2 MG/ML VIAL 1 MG IVPUSH (07:09)
[2022-05-14] MEDS: Metoclopramide HCl 10 MG/2 ML VIAL IVPUSH (07:09)
[2022-05-14 07:16] LABS: COVID-19 Test Negative (Negative); IDNOW Serial# BCCEAD1C
--- NOTE | 2022-05-14 08:46 | PC.NURSE ---
hospitalist at bedside for admitting evaluation.
--- NOTE | 2022-05-14 10:14 | PM.IMHP ---
History of Present Illness Date of Service: 05/14/22 Chief Complaint: Dizziness A 57 years old lady with PMH of vertigo, HTN, diabetes, asthma, migraines, dirt among others who presents to the hospital complaining of nausea and dizziness associated with vomiting. The patient was totally sleepy and very difficult to awake upon meeting as she received benzodiazepines earlier. She reported that she has been having episodes of dizziness and vomiting with associated spinning of the room around her. Denies any fever, chills, abdominal pain, chest pain, change in bowel habit or urinary symptoms. She reported having maxillary pain in her face. Admitted for further evaluation and treatment. Review of Systems Review of Systems: Yes Unobtainable due to mental status [facility] Medical History Abscess Depression with anxiety Diabetes mellitus Essential hypertension GERD (gastroesophageal reflux disease) Hand numbness Herpes simplex type 2 infection Hospital discharge follow-up Impaired glucose tolerance Insomnia Left knee pain Left leg pain Migraines Mild persistent asthma Mild recurrent major depression Mixed hyperlipidemia Nausea Supraventricular tachycardia Family History Father Brain cancer Mother Esophageal cancer Sister Breast cancer Paternal Uncle Diabetes Hypertension Surgical History History of cardiac radiofrequency ablation History of esophagogastroduodenoscopy (EGD) History of removal of cyst History of surgery History of total abdominal hysterectomy Hx of colonoscopy Social History Household Members: Children Housing: House Do you presently have visiting nurse or other home services: Yes Alcohol intake: never Patient Tobacco Use Status: Never used Tobacco e-Cigarette/Vaping Use: Never Used Second Hand Smoke Exposure: No Use of substances other than those prescribed or required for medical reasons: No Have you been hit, kicked, punched, or otherwise hurt by someone within the past year? If so, by whom?: No Do you feel safe in your current relationship?: No Current Relationship Is there a partner from a previous relationship who is making you feel unsafe now?: No Are you made to feel afraid or neglected: No Advance Directives: No Advance Directives Information Provided: No Recently lost weight without trying: No Eating poorly because of decreased appetite: No Nutrition Risks: No Nutritional Risk Patient : No : No Poor oral hygiene: Yes service: No Current occupational status: unemployed Sexual orientation: Straight/Heterosexual Gender identity: Female Cognitive needs: No Hearing needs: No Vision needs: No Meds Allergies Allergy/AdvReac Type Severity Reaction Status Date / Time bee pollen [BEE STINGS] Allergy Intermediate RASH Verified 02/19/22 09:07 SWELLING PAIN FULL. phentermine Allergy Intermediate ANXIETY Verified 02/19/22 09:07 pneumococcal vaccine Allergy Intermediate Swelling Verified 02/19/22 09:07 tramadol Allergy Intermediate stomach Verified 02/19/22 09:07 upset adhesive tape [ADHESIVE TAPE] Allergy Mild RASH Verified 02/19/22 09:07 oxycodone [OXYCODONE] AdvReac Intermediate VOMITING Verified 02/19/22 09:07 Active Medications: Current Medications Acetaminophen (Acetaminophen 325 Mg Tablet) 650 mg PO Q6H PRN PRN Reason: Pain, Mild (Pain Scale 1-3) Amoxicillin/Clavulanate Potassium (Amoxicillin/Potassium Clav 875 Mg Tablet) 875 mg PO Q12H [facility] Enoxaparin Sodium (Enoxaparin Sodium 40 Mg/0.4 Ml Syringe) 40 mg SUBCUT Q24H [facility] Sodium Chloride (Ns) 1,000 mls @ 100 mls/hr IVCONT .Q10H [facility] Stop: 05/14/22 22:00 Lorazepam (Lorazepam 0.5 Mg Tablet) 0.5 mg PO Q6H PRN PRN Reason: Vertigo Meclizine HCl (Meclizine Hcl 25 Mg Tablet) 25 mg PO Q6H PRN PRN Reason: Vertigo Ondansetron HCl (Ondansetron Hcl 4 Mg/2 Ml Vial) 4 mg IVPUSH Q8H PRN PRN Reason: Nausea and Vomiting Pharmacy Consult (Consult Rx Perform Med Rec) 1 each MISCELLANE ONCE PRN PRN Reason: Consult order Sodium Chloride (0.9 % Sodium Chloride Flush 3 Ml Syringe) 3 ml IVFLUSH QSHIFT [facility] Home Medications Medication Instructions Recorded Confirmed Last Taken Type lorazepam 1 mg tablet 1 mg PO TID PRN Anxiety 02/13/20 05/14/22 Unknown History zolpidem 10 mg tablet 10 mg PO BEDTIME PRN Insomnia 02/13/20 05/14/22 Unknown History fluticasone propionate 115 2 puff PO Q4-6H 05/06/21 05/14/22 Unknown History mcg-salmeterol 21 mcg/actuation HFA inhaler (Advair HFA) paroxetine HCl 10 mg tablet 10 mg PO DAILY 10/19/21 05/14/22 Unknown History cholecalciferol (vitamin D3) 25 1 cap PO DAILY 05/14/22 05/14/22 Unknown History mcg (1,000 unit) capsule dulaglutide 1.5 mg/0.5 mL 1.5 mg subcut TH 05/14/22 05/14/22 Unknown History subcutaneous pen injector (Trulicity) omalizumab 150 mg/mL subcutaneous 300 mg subcut Q4W 05/14/22 05/14/22 Unknown History syringe (Xolair) paroxetine HCl 40 mg tablet 1 tab PO DAILY 05/14/22 05/14/22 Unknown History Physical Exam Vital Signs and Narrative: Vital Signs: Last Vital Signs Temp 97.9 F 05/14/22 07:14 Pulse 74 05/14/22 07:35 Resp 13 05/14/22 07:19 BP 124/80 05/14/22 07:35 Pulse Ox 100 05/14/22 07:19 O2 Del Method 05/14/22 07:35 BMI result Body Mass Index 35.4 Const: Other: Constitutional : Awake with stimulation, very drowsy and sleepy, not in distress Eyes: Reported double vision on the right side, minimal horizontal nystagmus on the right side Neck : Normal inspection, Supple Cardiovascular : RRR, no JVP, no lower extremity edema Respiratory : good bilateral air entry, no crackles, wheezes or rhonchi Gastrointestinal: soft, lax, Normal bowel sounds, Non tender Skin : Warm, Dry Neurological : Alert & oriented to time and place with stimulation, No focal deficit Results Labs 05/14/22 04:46 05/14/22 04:46 Labs: Laboratory Results - last 24 hr 05/14/22 05/14/22 05/14/22 04:11 04:46 04:46 MCV 86.0 MCH 29.7 MCHC 34.5 RDW 14.0 Plt Count 240 MPV 8.8 L Immature Gran % (Auto) 0.5 H Neut % (Auto) 51.7 Lymph % (Auto) 36.8 [place] % (Auto) 8.5 Eos % (Auto) 2.0 Baso % (Auto) 0.5 Lymph # (Auto) 2.4 [place] # (Auto) 0.5 Eos # (Auto) 0.1 Baso # (Auto) 0.0 Abs Immat Gran (auto) 0.03 Absolute Neuts (auto) 3.3 Absolute Nucleated RBC 0.000 Nucleated RBC % (auto) 0.0 Anion Gap 18 Estim Creat Clear Calc 104.5 Estimated GFR > 60 POC Glucose 182 H Random Glucose 188 H Calcium 9.6 Total Bilirubin 0.9 Direct Bilirubin 0.3 AST 23 ALT 34 H Alkaline Phosphatase 72 Troponin I High Sens Total Protein 6.2 L Albumin 4.2 Lipase 15 COVID-19 ([facility]) COVID-19 [place] Com 05/14/22 05/14/22 04:46 06:48 MCV MCH MCHC RDW Plt Count MPV Immature Gran % (Auto) Neut % (Auto) Lymph % (Auto) [place] % (Auto) Eos % (Auto) Baso % (Auto) Lymph # (Auto) [place] # (Auto) Eos # (Auto) Baso # (Auto) Abs Immat Gran (auto) Absolute Neuts (auto) Absolute Nucleated RBC Nucleated RBC % (auto) Anion Gap Estim Creat Clear Calc Estimated GFR POC Glucose Random Glucose Calcium Total Bilirubin Direct Bilirubin AST ALT Alkaline Phosphatase Troponin I High Sens < 3.5 Total Protein Albumin Lipase COVID-19 ([facility]) Negative COVID-19 Clin Com See Note Imaging Radiologist's Impressions: Impressions Abdomen/Pelvis CT 05/14/22 06:00 IMPRESSION: * No acute findings within the abdomen or pelvis to explain the patient's symptomatology. * Nonobstructive 3 mm calculus, lower pole right kidney. Head CT 05/14/22 07:35 IMPRESSION: Negative acute noncontrast CT of the brain. Sinus disease is noted. Small air-fluid level in left maxillary sinus may indicate acute sinus disease Assessment and Plan (1) Benign paroxysmal positional vertigo: Status: Acute Plan A 57 years old lady with PMH of vertigo, HTN, diabetes, asthma, migraines, dirt among others who presents to the hospital complaining of nausea and dizziness associated with vomiting. Vertigo could be 2/[address] head negative for any acute findings MEclizine Benzos prn PT eval Sinusitis Augmentin DMII Insulin GERD PPI HLD Statin and Fenofibrate DVT PPx Lovenox Time Spent With Patient Time: Total time managing care of this patient today ____ minutes. Quality Stroke Does the patient have a stroke diagnosis?: No VTE Prior VTE?: No VTE Risk Level:: Medical - moderate - high VTE Device Contraindication: Treatment Not Indicated VTE Drug Contraindication: N/A - Med Ordered
[2022-05-14] MEDS: 0.9 % Sodium Chloride 1,000 ML 100 ML IVCONT ×2 (10:34→21:53)
[2022-05-14] MEDS: Enoxaparin Sodium 40 MG/0.4 ML SYRINGE SUBCUT (10:35)
[2022-05-14] MEDS: Amoxicillin/Potassium Clav 875 MG TABLET PO ×2 (10:35→21:53)
--- NOTE | 2022-05-14 12:11 | P.CNNE_ITS ---
History of Present Illness Data of Consult Service Date: 05/14/22 Primary Care Provider: Kayy Aburto MD HPI Reason for consult: Vertigo This is a 57-year-old woman with a history of diabetes, hypertension, h yperlipidemia, sciatica previous vertigo migraines who presented with acute onset of vertigo left upper abdominal pain and persistent vomiting. Her CT scan was normal. She is a little lethargic but otherwise feels fine. Vertigo is subsiding. She has not vomited. Left foot feels a little numb. No previous history of stroke. Review of Systems 2 Review of Systems: Constitutional : No Weight loss, No Fever, No Chills, No Night Sweats, No Fatigue, No Malaise ENT/Mouth : No Hearing loss, No Ear Pain, No Nasal Congestion, No Sinus Pain, No Hoarseness, No sore throat, No Rhinorrhea, No Swallowing Difficulty Eyes: No Eye Pain, No Swelling, No Redness, No Foreign Body, No Discharge, No Vision Changes Cardiovascular : No Chest Pain, No SOB, No Dyspnea on Exertion, No Orthopnea, No Edema, No Palpitations Respiratory : No Cough, No Sputum, No Wheezing, No Smoke Exposure, No Dyspnea Gastrointestinal : Complaining of nausea and vomiting, No Diarrhea, No Constipation, complaining of epigastric pain, No Hematochezia, No Melena Genitourinary : no irregular bleeding, No Dysuria, No Urinary Frequency, No H ematuria, No Urinary Incontinence, No Urgency, No Flank Pain, No Urinary Flow Changes, No Hesitancy Musculoskeletal : No joint pain, No Myalgias, No Joint Swelling Skin : No Skin Lesions, No rash Neuro : No Weakness, No Numbness, No Paresthesias, No Loss of Consciousness, complaining of dizziness/vertigo/room spinning with head movements Psych : No Anxiety/Panic, No Depression, No SI/HI/AH/VH, No Social Issues, Heme/Lymph: No Bruising, No Bleeding,No Lymphadenopathy Endocrine : No Polyuria, No Polydipsia, No Temperature Intolerance PMFSH Past Medical History Medical History Abscess Depression with anxiety Diabetes mellitus Essential hypertension GERD (gastroesophageal reflux disease) Hand numbness Herpes simplex type 2 infection Hospital discharge follow-up Impaired glucose tolerance Insomnia Left knee pain Left leg pain Migraines Mild persistent asthma Mild recurrent major depression Mixed hyperlipidemia Nausea Supraventricular tachycardia Family History Family History Father Brain cancer Mother Esophageal cancer Sister Breast cancer Paternal Uncle Diabetes Hypertension Surgical History Surgical History History of cardiac radiofrequency ablation History of esophagogastroduodenoscopy (EGD) History of removal of cyst History of surgery History of total abdominal hysterectomy Hx of colonoscopy Social History Social History Household Members: Children Housing: House Alcohol intake: never Patient Tobacco Use Status: Never used Tobacco e-Cigarette/Vaping Use: Never Used Second Hand Smoke Exposure: No Advance Directives: No Advance Directives Information Provided: No Patient : No service: No Current occupational status: unemployed Sexual orientation: Straight/Heterosexual Gender identity: Female Cognitive needs: No Hearing needs: No Vision needs: No Meds Allergies Allergy/AdvReac Type Severity Reaction Status Date / Time bee pollen [BEE STINGS] Allergy Intermediate RASH Verified 02/19/22 09:07 SWELLING PAIN FULL. phentermine Allergy Intermediate ANXIETY Verified 02/19/22 09:07 pneumococcal vaccine Allergy Intermediate Swelling Verified 02/19/22 09:07 tramadol Allergy Intermediate stomach Verified 02/19/22 09:07 upset adhesive tape [ADHESIVE TAPE] Allergy Mild RASH Verified 02/19/22 09:07 oxycodone [OXYCODONE] AdvReac Intermediate VOMITING Verified 02/19/22 09:07 Active Medications: Current Medications Acetaminophen (Acetaminophen 325 Mg Tablet) 650 mg PO Q6H PRN PRN Reason: Pain, Mild (Pain Scale 1-3) Amoxicillin/Clavulanate Potassium (Amoxicillin/Potassium Clav 875 Mg Tablet) 875 mg PO BID [facility] Last Admin: 05/14/22 10:35 Dose: 875 mg Enoxaparin Sodium (Enoxaparin Sodium 40 Mg/0.4 Ml Syringe) 40 mg SUBCUT Q24H [facility] Last Admin: 05/14/22 10:35 Dose: 40 mg Sodium Chloride (Ns) 1,000 mls @ 100 mls/hr IVCONT .Q10H [facility] Stop: 05/14/22 22:00 Last Admin: 05/14/22 10:34 Dose: 100 mls/hr Lorazepam (Lorazepam 0.5 Mg Tablet) 0.5 mg PO Q6H PRN PRN Reason: Vertigo Meclizine HCl (Meclizine Hcl 25 Mg Tablet) 25 mg PO Q6H PRN PRN Reason: Vertigo Ondansetron HCl (Ondansetron Hcl 4 Mg/2 Ml Vial) 4 mg IVPUSH Q8H PRN PRN Reason: Nausea and Vomiting Pharmacy Consult (Consult Rx Perform Med Rec) 1 each MISCELLANE ONCE PRN PRN Reason: Consult order Sodium Chloride (0.9 % Sodium Chloride Flush 3 Ml Syringe) 3 ml IVFLUSH [facility]SC[facility]FT [facility] Last Admin: 05/14/22 10:35 Dose: Not Given Home Medications Medication Instructions Recorded Confirmed Last Taken Type lorazepam 1 mg tablet 1 mg PO TID PRN Anxiety 02/13/20 02/19/22 Unknown History topiramate 100 mg tablet 100 mg PO DAILY 02/13/20 02/19/22 Unknown History zolpidem 10 mg tablet 10 mg PO BEDTIME PRN Insomnia 02/13/20 02/19/22 Unknown History fluticasone propionate 115 2 puff PO Q4-6H PRN 05/06/21 02/19/22 Unknown History mcg-salmeterol 21 mcg/actuation HFA inhaler (Advair HFA) tiotropium bromide 1.25 2 puff PO QAM 05/06/21 02/19/22 Unknown History mcg/actuation mist for inhalation (Spiriva Respimat) paroxetine HCl 10 mg tablet 10 mg PO DAILY 10/19/21 02/19/22 Unknown History epinephrine 0.3 mg/0.3 mL IM ONCE 01/25/22 02/19/22 Unknown History injection, auto-injector cholecalciferol (vitamin D3) 25 1 cap PO DAILY 05/14/22 Unknown History mcg (1,000 unit) capsule omalizumab 150 mg/mL subcutaneous 300 mg subcut Q4W 05/14/22 Unknown History syringe (Xolair) paroxetine HCl 40 mg tablet 1 tab PO DAILY 05/14/22 Unknown History Physical Exam Vital Signs: Vital Signs: Last Vital Signs Temp 97.9 F 05/14/22 07:14 Pulse 88 05/14/22 10:33 Resp 15 05/14/22 10:33 BP 120/84 05/14/22 10:33 Pulse Ox 96 05/14/22 10:33 O2 Del Method 05/14/22 10:33 BMI result Body Mass Index 35.4 Const: Other: Appearance: Alert. Oriented X3. Patient looks uncomfortable Eyes: Pupils equal, round and reactive to light. No nystagmus ENT: Pharynx normal. Neck: Normal inspection. Neck supple. No lymph nodes noted. No crepitus CVS: Normal heart rate and rhythm. Pulses normal. Normal S1 and S2 Respiratory: No respiratory distress. Breath sounds normal. No Wheezing. No rales Abdomen: Soft , complaining of epigastric pain with palpation and also in the left upper quadrant, No rigidity. No distention. Skin: Skin warm and dry. Normal skin color. Normal skin turgor. Extremities: No lower extremity edema. No Lacerations. No Rash Neuro: Oriented X 3. No motor deficit. No sensory deficit. Moving all extremities. No slurred speech. CN 2 through 12 grossly intact Psych: calm, cooperative, normal affect Neuro: Other: The patient is lethargic and sleepy but arousable. There is slight weakness of the left upper extremity and left lower extremity on the examination. No visual field cut no facial droop and no dysarthria. No definite vertigo at this time and no nystagmus. Results Labs 05/14/22 04:46 05/14/22 04:46 Labs: Short CBC 05/14/22 Range/Units 04:46 WBC 6.4 (4.8-10.8) X10*3/uL Hgb 13.6 (12.0-16.0) g/dl Hct 39.4 (37.0-47.0) % Plt Count 240 (160-400) X10*3/uL BMP 05/14/22 04:46 Sodium 144 Potassium 3.4 Chloride 108 Carbon Dioxide 21 L BUN 6 L Creatinine 0.74 Calcium 9.6 Liver Function 05/14/22 Range/Units 04:46 Total Bilirubin 0.9 (0.0-1.0) mg/dL Direct Bilirubin 0.3 (0.0-0.5) mg/dL AST 23 (5-31) U/L ALT 34 H (0-31) U/L Alkaline Phosphatase 72 (39-117) U/L Albumin 4.2 (3.5-5.0) g/dL Assessment and Plan (1) Vertigo: Status: Acute Probably of labyrinthine origin and rule out posterior circulation stroke in view of subtle left-sided weakness. Multiple stroke risk factors. Recommendation MRI of the brain. Treat symptomatically with meclizine and ondansetron Time Spent With Patient Time: Total time managing care of this patient today ____ minutes. Procedures Date of Service Date of Service: 05/14/22
[2022-05-14 13:20] LABS: Glucose, Whole Blood 85 mg/dL (60-115)
[2022-05-14 16:16] LABS: Glucose, Whole Blood 138 mg/dL (60-115)
[2022-05-14 21:49] LABS: Glucose, Whole Blood 180 mg/dL (60-115)
[2022-05-14] MEDS: bisacodyL 5 MG TABLET.DR PO (21:53)
[2022-05-14] MEDS: Insulin Lispro 100 UNIT/ML 3 ML VIAL SUBCUT (21:53)
[2022-05-15 04:00] VITALS: BP 108/67; PULSE 99; RESP 15; TEMP 36.7; O2SAT 94
[2022-05-15 06:16] LABS: Hematocrit 36.7 % (37.0-47.0); Hemoglobin 12.3 g/dl (12.0-16.0); Mean Corpuscular HGB Conc 33.5 g/dl (31.0-35.0); Mean Corpuscular Hemoglobin 29.6 pg (27.0-33.0); Mean Corpuscular Volume 88.2 fL (80.0-98.0); Mean Platelet Volume 8.9 fL (9.4-12.3); Platelet Count 241 X10*3/uL (160-400); Red Blood Count 4.16 X10*6/uL (4.20-5.50); White Blood Count 7.1 X10*3/uL (4.8-10.8)
[2022-05-15 06:34] LABS: Anion Gap 13 (12-20); Blood Urea Nitrogen 7 mg/dL (9-16); Calcium 8.9 mg/dL (8.4-10.2); Carbon Dioxide 24 mmol/L (22-29); Chloride 110 mmol/L (96-108); Creatinine Clr Calc Pharmacy 122.7; Estimated Glomerular Filt Rate > 60; Glucose Random 139 mg/dL (60-115); Potassium 3.7 mmol/L (3.3-5.1); Sodium 143 mmol/L (135-145)
[2022-05-15 07:10] VITALS: BP 125/75; PULSE 102; RESP 18; TEMP 36; O2SAT 95
[2022-05-15 07:18] LABS: Glucose, Whole Blood 147 mg/dL (60-115)
[2022-05-15] MEDS: Fluticasone/Vilanterol 100/25 BLST.W.DEV 1 PUFF INHALE (08:21)
[2022-05-15 08:22] VITALS: PULSE 110; RESP 20; O2SAT 95
[2022-05-15] MEDS: Fenofibrate 54 MG TABLET PO (08:36)
[2022-05-15] MEDS: Meclizine HCl 25 MG TABLET PO ×2 (08:37→21:03)
[2022-05-15] MEDS: Atorvastatin Calcium 80 MG TABLET PO (08:37)
[2022-05-15] MEDS: Furosemide 40 MG TABLET PO (08:37)
[2022-05-15] MEDS: Omeprazole 20 MG CAPSULE.DR PO (08:37)
[2022-05-15] MEDS: Amoxicillin/Potassium Clav 875 MG TABLET PO ×2 (08:37→21:03)
[2022-05-15] MEDS: PARoxetine HCL 40 MG TABLET PO (08:37)
[2022-05-15] MEDS: PARoxetine HCL 10 MG TABLET PO (08:38)
[2022-05-15] MEDS: 0.9 % Sodium Chloride Flush 3 ML SYRINGE IVFLUSH ×3 (08:38→21:04)
[2022-05-15] MEDS: Ketorolac Tromethamine 30 MG/ML VIAL 15 MG IVPUSH (09:31)
[2022-05-15] MEDS: ondansetron HCL 4 MG/2 ML VIAL IVPUSH ×2 (09:50→21:04)
[2022-05-15 11:47] LABS: Glucose, Whole Blood 141 mg/dL (60-115)
[2022-05-15] MEDS: Enoxaparin Sodium 40 MG/0.4 ML SYRINGE SUBCUT (12:29)
--- NOTE | 2022-05-15 13:01 | HO.PM.IMPN ---
Subjective Subjective Date of Service: 05/15/22 Interval History: Alert and interactive denies any dizziness this morning reporting headache and congestion no other overnight events Review of Systems Review of Systems: Yes all other systems are reviewed and are negative Physical Exam Vital Signs: Vital Signs: Last Vital Signs Temp 96.8 F 05/15/22 07:10 Pulse 110 H 05/15/22 08:22 Resp 20 05/15/22 08:22 BP 125/75 05/15/22 07:10 Pulse Ox 95 05/15/22 07:10 O2 Del Method 05/15/22 07:10 BMI result Body Mass Index 35.4 Const: Other: Constitutional : Awake, interactive, complaining of headache Eyes: no double vision, no nystagmus Neck : Normal inspection, Supple Cardiovascular : RRR, no JVP, no lower extremity edema Respiratory : good bilateral air entry, no crackles, wheezes or rhonchi Gastrointestinal: soft, lax, Normal bowel sounds, Non tender Skin : Warm, Dry Neurological : Alert & oriented, No focal deficit Objective Data Active Medications Acetaminophen (Acetaminophen 325 Mg Tablet) 650 mg PO Q6H PRN PRN Reason: Pain, Mild (Pain Scale 1-3) Albuterol Sulfate (Albuterol Sulfate 90 Mcg 8 Gm Inhaler) 2 puff INHALE Q6H PRN PRN Reason: shortness of breath or wheezing Amoxicillin/Clavulanate Potassium (Amoxicillin/Potassium Clav 875 Mg Tablet) 875 mg PO BID [facility] Last Admin: 05/15/22 08:37 Dose: 875 mg Documented By: WILMER Atorvastatin Calcium (Atorvastatin Calcium 80 Mg Tablet) 80 mg PO DAILY [facility] Last Admin: 05/15/22 08:37 Dose: 80 mg Documented By: WILMER Bisacodyl (Bisacodyl 5 Mg Tablet.Dr) 5 mg PO BEDTIME [facility] Last Admin: 05/14/22 21:53 Dose: 5 mg Documented By: YE Enoxaparin Sodium (Enoxaparin Sodium 40 Mg/0.4 Ml Syringe) 40 mg SUBCUT Q24H [facility] Last Admin: 05/15/22 12:29 Dose: 40 mg Documented By: WILMER Fenofibrate (Fenofibrate 54 Mg Tablet) 54 mg PO DAILY [facility] Last Admin: 05/15/22 08:36 Dose: 54 mg Documented By: WILMER Fluticasone/Vilanterol (Fluticasone/Vilanterol 100/25 Blst.W.Dev) 1 puff INHALE RDAILY [facility] Last Admin: 05/15/22 08:21 Dose: 1 puff Documented By: FRANK Furosemide (Furosemide 40 Mg Tablet) 40 mg PO DAILY [facility]; Protocol Last Admin: 05/15/22 08:37 Dose: 40 mg Documented By: WILMER Ibuprofen (Ibuprofen 400 Mg Tablet) 400 mg PO Q6H PRN PRN Reason: Pain, Moderate (Pain Scale 4-6 Insulin Human Lispro (Insulin Lispro 100 Unit/Ml 3 Ml Vial) 0 unit SUBCUT QIDACHS [facility]; Protocol Last Admin: 05/15/22 11:50 Dose: Not Given Documented By: WILMER Non-Admin Reason: No Access Lorazepam (Lorazepam 0.5 Mg Tablet) 0.5 mg PO Q6H PRN PRN Reason: Vertigo Lorazepam (Lorazepam 1 Mg Tablet) 1 mg PO TID PRN PRN Reason: Anxiety Meclizine HCl (Meclizine Hcl 25 Mg Tablet) 25 mg PO Q6H PRN PRN Reason: Vertigo Last Admin: 05/15/22 08:37 Dose: 25 mg Documented By: WILMER Omeprazole (Omeprazole 20 Mg Capsule.Dr) 20 mg PO DAILY [facility] Last Admin: 05/15/22 08:37 Dose: 20 mg Documented By: WILMER Ondansetron HCl (Ondansetron Hcl 4 Mg/2 Ml Vial) 4 mg IVPUSH Q8H PRN PRN Reason: Nausea and Vomiting Last Admin: 05/15/22 09:50 Dose: 4 mg Documented By: HENRRY Paroxetine HCl (Paroxetine Hcl 10 Mg Tablet) 10 mg PO DAILY [facility] Last Admin: 05/15/22 08:38 Dose: 10 mg Documented By: WILMER Paroxetine HCl (Paroxetine Hcl 40 Mg Tablet) 40 mg PO DAILY [facility] Last Admin: 05/15/22 08:37 Dose: 40 mg Documented By: WILMER Pharmacy Consult (Consult Rx Perform Med Rec) 1 each MISCELLANE ONCE PRN PRN Reason: Consult order Sodium Chloride (0.9 % Sodium Chloride Flush 3 Ml Syringe) 3 ml IVFLUSH QSHIFT [facility] Last Admin: 05/15/22 08:38 Dose: 3 ml Documented By: WILMER Zolpidem Tartrate (Zolpidem Tartrate 5 Mg Tablet) 10 mg PO BEDTIME PRN PRN Reason: Insomnia Labs 05/15/22 05:39 05/15/22 05:39 Labs: Laboratory Results - last 24 hr 05/14/22 05/14/22 05/14/22 13:16 16:04 21:45 MCV MCH MCHC RDW Plt Count MPV Absolute Nucleated RBC Nucleated RBC % (auto) Anion Gap Estim Creat Clear Calc Estimated GFR POC Glucose 85 138 H 180 H Random Glucose Calcium 05/15/22 05/15/22 05/15/22 05:39 05:39 07:10 MCV 88.2 MCH 29.6 MCHC 33.5 RDW 14.0 Plt Count 241 MPV 8.9 L Absolute Nucleated RBC 0.000 Nucleated RBC % (auto) 0.0 Anion Gap 13 Estim Creat Clear Calc 122.7 Estimated GFR > 60 POC Glucose 147 H Random Glucose 139 H Calcium 8.9 D 05/15/22 11:44 MCV MCH MCHC RDW Plt Count MPV Absolute Nucleated RBC Nucleated RBC % (auto) Anion Gap Estim Creat Clear Calc Estimated GFR POC Glucose 141 H Random Glucose Calcium Assessment and Plan (1) Benign paroxysmal positional vertigo: Status: Acute (2) Sinusitis: Status: Acute Plan A 57 years old lady with PMH of vertigo, HTN, diabetes, asthma, migraines, dirt among others who presents to the hospital complaining of nausea and dizziness associated with vomiting. Vertigo seems to be 2/2 BPPV given patient prev hx of similar episodes CT head negative for any acute findings MRI done showing no acute findings Neurology input appreciated MEclizine Benzos prn PT eval Sinusitis Augmentin Advil DMII Insulin GERD PPI HLD Statin and Fenofibrate DVT PPx Lovenox Time Spent With Patient Time: Total time managing care of this patient today ____ minutes. Quality Stroke Does the patient have a stroke diagnosis?: No VTE Prior VTE?: No VTE Risk Level:: Medical - moderate - high VTE Device Contraindication: Treatment Not Indicated VTE Drug Contraindication: N/A - Med Ordered
[2022-05-15 14:49] VITALS: BP 123/75; PULSE 93; RESP 16; TEMP 36; O2SAT 93
[2022-05-15 16:33] VITALS: BP 123/75; PULSE 93; O2SAT 93
[2022-05-15 16:45] LABS: Glucose, Whole Blood 148 mg/dL (60-115)
[2022-05-15 20:58] VITALS: BP 138/72; PULSE 80; RESP 16; TEMP 36.4; O2SAT 99
[2022-05-15 21:00] LABS: Glucose, Whole Blood 160 mg/dL (60-115)
[2022-05-15] MEDS: bisacodyL 5 MG TABLET.DR PO (21:03)
[2022-05-15] MEDS: Insulin Lispro 100 UNIT/ML 3 ML VIAL SUBCUT (21:03)
[2022-05-16] VITALS: BP 124/62; PULSE 70; RESP 16; TEMP 36.3; O2SAT 99
[2022-05-16] MEDS: LORazepam 1 MG TABLET PO (00:14)
[2022-05-16] MEDS: Acetaminophen 325 MG TABLET 650 MG PO (00:14)
[2022-05-16] MEDS: Ibuprofen 400 MG TABLET PO ×2 (00:14→08:32)
[2022-05-16 07:10] VITALS: BP 133/81; PULSE 88; RESP 18; TEMP 36.1; O2SAT 95
[2022-05-16 07:13] LABS: Glucose, Whole Blood 176 mg/dL (60-115)
[2022-05-16] MEDS: Omeprazole 20 MG CAPSULE.DR PO (07:52)
[2022-05-16] MEDS: Furosemide 40 MG TABLET PO (07:53)
[2022-05-16] MEDS: PARoxetine HCL 40 MG TABLET PO (07:53)
[2022-05-16] MEDS: Insulin Lispro 100 UNIT/ML 3 ML VIAL SUBCUT ×2 (07:53→11:29)
[2022-05-16] MEDS: Fenofibrate 54 MG TABLET PO (07:53)
[2022-05-16] MEDS: Atorvastatin Calcium 80 MG TABLET PO (07:53)
[2022-05-16] MEDS: 0.9 % Sodium Chloride Flush 3 ML SYRINGE IVFLUSH (07:53)
[2022-05-16] MEDS: PARoxetine HCL 10 MG TABLET PO (07:53)
[2022-05-16] MEDS: Amoxicillin/Potassium Clav 875 MG TABLET PO (07:53)
[2022-05-16] MEDS: Fluticasone/Vilanterol 100/25 BLST.W.DEV 1 PUFF INHALE (08:12)
[2022-05-16 08:13] VITALS: PULSE 87; RESP 18; O2SAT 93
[2022-05-16] MEDS: Meclizine HCl 25 MG TABLET PO ×2 (08:32→11:29)
[2022-05-16] MEDS: ondansetron HCL 4 MG/2 ML VIAL IVPUSH ×2 (08:41→11:27)
--- NOTE | 2022-05-16 09:59 | MHC.CM.PN ---
ISRAEL 05/16/22 Female 53 DX Biliary Colic She lives with her . She is independent all functional mobility. Vaxxed x3 . She declines the offer to document a HCP. DP home self care. Her will provide transportation home. PCP DR Gardiner
--- NOTE | 2022-05-16 10:20 | MHC.CM.PN ---
Addendum entered by Tegan Nichole 05/16/22 13:50: [facility] will assess patient post hospitalization 24-48 hrs to assess for additional services needed. Addendum entered by Tegan Nichole 05/16/22 13:02: Patient will be transported home by her dtr. Discharge is anticipated this afternoon, home self care. Original Note: WOOD 05/16/22 FEMALE 57 DX ASTHMA She lives with family. She is independent. Vaxxed x2 Declined offer to document HCP. DP home patient will arrange for transport.
[2022-05-16 11:12] LABS: Glucose, Whole Blood 185 mg/dL (60-115)
[2022-05-16] MEDS: Ketorolac Tromethamine 15 MG/ML VIAL IVPUSH (11:27)
[2022-05-16] MEDS: Butalb/Acetamin/Caff 50/325/40 TABLET 1 TAB PO (11:28)
[2022-05-16] MEDS: Enoxaparin Sodium 40 MG/0.4 ML SYRINGE SUBCUT (11:29)
--- NOTE | 2022-05-16 12:46 | PM.DS ---
DS: Providers Provider Date of Service: 05/16/22 Date of admission: 05/14/22 09:56 Primary care physician: Kayy Aburto MD Consults: 05/14/22 07:16 Consult to Neurology Stat Consulting Provider: [facility] Reason for consultation: intractable vertigo DS: Diagnosis Discharge Diagnosis (1) Benign paroxysmal positional vertigo: Status: Acute (2) Sinusitis: Status: Acute DS: Summary Hospital Course Hospital Course: Admission note HPI A 57 years old lady with PMH of vertigo, HTN, diabetes, asthma, migraines, dirt among others who presents to the hospital complaining of nausea and dizziness associated with vomiting.? The patient was totally sleepy and very difficult to awake upon meeting as she received benzodiazepines earlier.? She reported that she has been having episodes of dizziness and vomiting with associated spinning of the room around her.? Denies any fever, chills, abdominal pain, chest pain, change in bowel habit or urinary symptoms.? She reported having maxillary pain in her face.? Admitted for further evaluation and treatment. Hospital course Patient admitted for evaluation of vertigo which seems to be 2/2 BPPV given patient prev hx of similar episodes. CT head negative for any acute findings. MRI done showing no acute findings. Neurology input appreciated who recommended to treat with MEclizine and Zofran. the patient symptoms improved and she was able to tolerate diet and participate with physical therapy who recommended home PT. CT scan reported sinusitis. treated with Augmentin. Advil for pain. Continue Augmentin as prescribed Meclizine as needed for dizziness Zofran for nausea To do PT as outpatient increase your fluid intake Time Spent with Patient Time attestation: Total time managing care of this patient today ____ minutes. Discharge coordination time: Less than 30 minutes Quality: Safe Use of Opioids Does Pt have an Active Cancer Diagnosis on the Problem List?: No Quality: Stroke Does the patient have a stroke diagnosis?: No Physical Exam Vital Signs: Vital Signs: Last Vital Signs Temp 97 F 05/16/22 07:10 Pulse 87 05/16/22 08:13 Resp 18 05/16/22 08:13 BP 133/81 05/16/22 07:10 Pulse Ox 95 05/16/22 07:10 O2 Del Method 05/16/22 07:10 BMI result Body Mass Index 35.4 Const: Other: Constitutional : Awake, interactive, not in distress Eyes: no double vision, no nystagmus Neck : Normal inspection, Supple Cardiovascular : RRR, no JVP, no lower extremity edema Respiratory : good bilateral air entry, no crackles, wheezes or rhonchi Gastrointestinal: soft, lax, Normal bowel sounds, Non tender Skin : Warm, Dry Neurological : Alert & oriented, No focal deficit DS: Data Data Completed and Pending Labs on day of discharge: Laboratory Results - last 24 hr 05/15/22 05/15/22 05/15/22 11:44 16:34 20:50 POC Glucose 141 H 148 H 160 H 05/16/22 05/16/22 07:09 11:02 POC Glucose 176 H 185 H Imaging MRI - head: Radiologist's impression: ITS Impressions Abdomen/Pelvis CT 05/14/22 06:00 IMPRESSION: * No acute findings within the abdomen or pelvis to explain the patient's symptomatology. * Nonobstructive 3 mm calculus, lower pole right kidney. Head CT 05/14/22 07:35 IMPRESSION: Negative acute noncontrast CT of the brain. Sinus disease is noted. Small air-fluid level in left maxillary sinus may indicate acute sinus disease Brain MRI 05/14/22 18:40 IMPRESSION: 1. No acute infarct or other acute intracranial abnormality. 2. Paranasal sinus inflammatory disease Discharge Plan Discharge Anticipated Discharge Date/Time: 05/16/22 12:39 Patient Disposition: Home Health Service Discharge Diagnosis: Vertigo Sinusitis Referrals: Kayy Escobar MD [Primary Care Provider] - 1 Week Discharge Medications: New meclizine 25 mg Tablet 25 mg PO Q6H PRN (Reason: Vertigo) Qty: 30 0RF amoxicillin-pot clavulanate 875-125 mg Tablet 875 mg PO BID Qty: 10 0RF ondansetron 4 mg tablet,disintegrating 4 mg PO Q8H PRN (Reason: nausea and vomiting) Qty: 20 0RF Continued (DME) Aeroneb Go Nebulizer Misc See Rx Instructions .Route Qty: 1 0RF Rx Instructions: As directed albuterol sulfate [ProAir HFA] 90 mcg/actuation HFA aerosol inhaler 2 puff inhalation Q6H PRN (Reason: shortness of breath or wheezing) 30 Days Qty: 6.7 1RF (DME) blood-glucose meter [FreeStyle Lite Meter] Kit See Rx Instructions .Route Qty: 1 0RF Rx Instructions: As directed (DME) lancets [FreeStyle Lancets] 28 gauge misc See Rx Instructions .Route Qty: 100 3RF Rx Instructions: Use 1 lancet once a day (DME) FreeStyle Test Strip See Rx Instructions .Route Qty: 100 3RF Rx Instructions: Use 1 test strip once a day metformin 850 mg tablet 850 mg PO BID 90 Days Qty: 180 1RF furosemide 40 mg tablet 40 mg PO DAILY 90 Days Qty: 90 3RF bisacodyl 5 mg tablet,delayed release (DR/EC) 5 mg PO BEDTIME 90 Days Qty: 90 1RF paroxetine HCl 40 mg tablet 1 tab PO DAILY cholecalciferol (vitamin D3) 25 mcg (1,000 unit) capsule 1 cap PO DAILY Xolair 150 mg/mL syringe 300 mg subcut Q4W Trulicity 1.5 mg/0.5 mL pen injector 1.5 mg subcut TH lorazepam 1 mg tablet 1 mg PO TID PRN (Reason: Anxiety) zolpidem 10 mg tablet 10 mg PO BEDTIME PRN (Reason: Insomnia) Advair HFA 115-21 mcg/actuation HFA aerosol inhaler 2 puff PO Q4-6H rosuvastatin 40 mg tablet 40 mg PO DAILY 90 Days Qty: 90 1RF fenofibrate 54 mg tablet 54 mg PO DAILY 90 Days Qty: 90 1RF esomeprazole magnesium 40 mg capsule,delayed release(DR/EC) 40 mg PO DAILY Qty: 90 1RF paroxetine HCl 10 mg tablet 10 mg PO DAILY Discharge Orders: Discharge Order (Routine); Ordered 05/16/22 Ordered By: Yany Harrell Diet: Advance to usual diet Activity on Discharge: As tolerated Stand Alone Forms: Patient Portal Discharge page Care Plan Goals: Read below Health Concerns: Read below Plan of Treatment: Read below Assessment: You were admitted to the hospital for evaluation of vertigo attack. responded fairly to oral and IV medications. CT scan showed an evidence of sinus infection treated with PO Augmentin Continue Augmentin as prescribed Meclizine as needed for dizziness Zofran for nausea To do PT as outpatient increase your fluid intake Advil for sinus pain
--- NOTE | 2022-05-16 12:52 | W.MHC.F2F ---
Service Date Service Date: 05/16/22 Encounter Date of encounter: 05/16/22 Reasons for Services Signs and symptoms assessed: Vertigo Reason for residential: teach disease management Reason for physical therapy: home safety and mobility and therapeutic exercises Homebound: Leaving the home is medically contraindicated at this time without the asist of a device and/or another person due th the listed conditions above and below. Reason homebound: unsteady gait / fall risk Certification: Based on the above findings, I certify that this patient is confined to the home and needs intermittent residential care, physical therapy and/or speech therapy, or continues to need occupational therapy. The patient is under my care, and I have initiated the establishment of the plan of care. The patient will be followed by a physician who will periodically review the plan of care. Time Spent With Patient Time: Total time managing care of this patient today ____ minutes.
== END 2022-05-16 13:40 | disposition home health service (06) ==
LOC: HO.ED 06:40 → HO.EDOVER 10:16 → HO.S3 11:18
PROVIDERS: Admitting Provider Student in an Organized Health Care Education/Training Program; Emergency Provider Emergency Medicine; PCP Internal Medicine; Visit Provider Student in an Organized Health Care Education/Training Program
DX: H81.10 Benign paroxysmal vertigo, unspecified ear (principal); J01.90 Acute sinusitis, unspecified; I10 Essential (primary) hypertension; E11.9 Type 2 diabetes mellitus without complications; Z79.899 Other long term (current) drug therapy
CPT/HCPCS: 36415; 70450; 70551; 74177; 80048; 80076; 82947; 83690; 84484; 85025; 85027; 87635; 93005; 94640; 96361; 96372; 96374; 96375; 96376; 97162; 99221; 99285; J1200; J1650; J1885; J2060; J2405; J2765; Q9967

== ENCOUNTER 2022-05-17 08:27 | Outpatient (REF) | payer OTHER, SELFPAY | END 2022-05-17 08:28 | disposition home or self-care (01) | LOC: HO.MDS 08:27 | PROVIDERS: Visit Provider Internal Medicine Pulmonary Disease | DX: J45.50 Severe persistent asthma, uncomplicated (principal) | CPT/HCPCS: J2357 ==

== ENCOUNTER 2022-06-14 08:17 | Outpatient (REF) | payer OTHER, SELFPAY | END 2022-06-14 08:18 | disposition home or self-care (01) | LOC: HO.MDS 08:17 | PROVIDERS: Visit Provider Internal Medicine Pulmonary Disease | DX: J45.50 Severe persistent asthma, uncomplicated (principal) | CPT/HCPCS: 96372 ==

== ENCOUNTER 2022-06-23 02:35 | Emergency (ER) | payer OTHER, SELFPAY ==
--- NOTE | 2022-06-23 | ECG_ITS ---
Test Reason : ASTHMA Blood Pressure : / mmHG Vent. Rate : 112 BPM Atrial Rate : 112 BPM P-R Int : 138 ms QRS Dur : 084 ms QT Int : 344 ms P-R-T Axes : 055 -05 032 degrees QTc Int : 469 ms Sinus tachycardia Otherwise normal ECG No significant changes when compared with the previous EKG of 14 may 2022 Referred By: Generic ED Physician Electronically Signed By:DAVID VILLA
--- NOTE | ~2022-06-23 | XR_ITS ---
EXAMINATION: XR CHEST CLINICAL INFORMATION: Asthma and cough COMPARISON: 07/18/2021 TECHNIQUE: 2 views of the chest were obtained. FINDINGS: There is slight elevation of the right hemidiaphragm, similar to prior. No focal consolidation is seen bilaterally. No evidence of pneumothorax, pleural effusion, or pulmonary edema. The cardiomediastinal contour is unremarkable. No acute osseous findings are seen. XR/XR chest 2V IMPRESSION: No acute cardiopulmonary findings.
[2022-06-23 02:36] VITALS: BP 126/96; PULSE 113; RESP 20; TEMP 35.9; O2SAT 98; BMI 25.8
[2022-06-23 03:00] LABS: Basophils Percent Auto 0.5 % (0-2); Eosinophils Percent Auto 0.4 % (0-4); Hematocrit 43.1 % (37.0-47.0); Hemoglobin 14.1 g/dl (12.0-16.0); Imm Gran Abs Auto 0.09 X10*3/uL (0.00-0.03); Imm Gran Pct Auto 1.1 % (0.0-0.4); Lymphocytes Absolute Auto 1.6 X10*3/uL (1.2-4.9); Lymphocytes Percent Auto 18.3 % (20-40); MANUAL DIFF FLAG NO; Mean Corpuscular HGB Conc 32.7 g/dl (31.0-35.0); Mean Corpuscular Hemoglobin 28.8 pg (27.0-33.0); Mean Platelet Volume 8.7 fL (9.4-12.3); Monocytes Absolute Auto 0.4 X10*3/uL (0.1-1.2); Monocytes Percent Auto 4.7 % (2-11); Neutrophils Absolute Auto 6.4 x10*3/uL (2.0-8.3); Platelet Count 321 X10*3/uL (160-400); Red Cell Distribution Width 13.7 % (11.0-16.0); White Blood Count 8.5 X10*3/uL (4.8-10.8)
[2022-06-23 03:26] LABS: Anion Gap 17 (12-20); Blood Urea Nitrogen 9 mg/dL (9-16); Calcium 9.4 mg/dL (8.4-10.2); Carbon Dioxide 20 mmol/L (22-29); Chloride 106 mmol/L (96-108); Creatinine Clr Calc Pharmacy 76.2; Estimated Glomerular Filt Rate > 60; Glucose Random 331 mg/dL (60-115); Potassium 4.3 mmol/L (3.3-5.1); Sodium 139 mmol/L (135-145)
[2022-06-23 03:33] LABS: Troponin-I High Sensitivity < 2.7 ng/L (<3.5-17.0)
--- NOTE | 2022-06-23 03:40 | ED.CHESTPAIN ---
HPI - Chest Pain General Chief Complaint: Chest Pain Stated Complaint: asthma/ chest pain/ trouble breathing Time Seen by Provider: 06/23/22 02:47 Source: patient and lead solutions architect Mode of arrival: ambulatory History of Present Illness HPI narrative: 57-year-old female who has known asthma and presents with 1 week of worsening shortness of breath, cough, she is currently undergoing allergy shots from [facility]. Patient denies any fevers or chills but states that she is having considerable midsternal chest discomfort as well as into her back from all of the coughing episodes that actually caused her to vomit as well. She did contact her primary care provider who provided her with additional nebulized treatments. Related Data Home Medications Medication Instructions Recorded Confirmed lorazepam 1 mg tablet 1 mg PO TID PRN Anxiety 02/13/20 06/16/22 zolpidem 10 mg tablet 10 mg PO BEDTIME PRN Insomnia 02/13/20 06/16/22 fluticasone propionate 115 2 puff PO Q4-6H 05/06/21 06/16/22 mcg-salmeterol 21 mcg/actuation HFA inhaler (Advair HFA) paroxetine HCl 10 mg tablet 10 mg PO DAILY 10/19/21 06/16/22 cholecalciferol (vitamin D3) 25 1 cap PO DAILY 05/14/22 06/16/22 mcg (1,000 unit) capsule dulaglutide 1.5 mg/0.5 mL 1.5 mg subcut TH 05/14/22 06/16/22 subcutaneous pen injector (Trulicity) omalizumab 150 mg/mL subcutaneous 300 mg subcut Q4W 05/14/22 06/16/22 syringe (Xolair) paroxetine HCl 40 mg tablet 1 tab PO DAILY 05/14/22 06/16/22 Previous Rx's Medication Instructions Recorded albuterol sulfate 90 mcg/actuation 2 puff inhalation Q6H PRN 02/05/21 aerosol inhaler (ProAir HFA) shortness of breath or wheezing 30 days #6.7 grams nebulizers (Aeroneb Go Nebulizer) #1 ea 02/05/21 esomeprazole magnesium 40 mg 40 mg PO DAILY #90 caps 02/13/21 capsule,delayed release blood-glucose meter (FreeStyle #1 ea 05/14/21 Lite Meter kit) blood sugar diagnostic (FreeStyle #100 ea 07/03/21 Test strips) lancets 28 gauge (FreeStyle #100 ea 07/03/21 Lancets) metformin 850 mg tablet 850 mg PO BID 90 days #180 tabs 12/24/21 fenofibrate 54 mg tablet 54 mg PO DAILY 90 days #90 tabs 01/21/22 rosuvastatin 40 mg tablet 40 mg PO DAILY 90 days #90 tabs 01/21/22 furosemide 40 mg tablet 40 mg PO DAILY 90 days #90 tabs 04/15/22 bisacodyl 5 mg tablet,delayed 5 mg PO BEDTIME 90 days #90 tabs 05/15/22 release meclizine 25 mg tablet 25 mg PO Q6H PRN Vertigo #30 tabs 05/16/22 ondansetron 4 mg disintegrating 4 mg PO Q8H PRN nausea and 06/16/22 tablet vomiting #20 tabs benzonatate 200 mg capsule 200 mg PO TID PRN cough #14 caps 06/23/22 prednisone 50 mg tablet 50 mg PO DAILY 4 days #4 tabs 06/23/22 Allergies Allergy/AdvReac Type Severity Reaction Status Date / Time bee pollen [BEE STINGS] Allergy Intermediate RASH Verified 06/16/22 13:46 SWELLING PAIN FULL. phentermine Allergy Intermediate ANXIETY Verified 06/16/22 13:46 pneumococcal vaccine Allergy Intermediate Swelling Verified 06/16/22 13:46 tramadol Allergy Intermediate stomach Verified 06/16/22 13:46 upset adhesive tape [ADHESIVE TAPE] Allergy Mild RASH Verified 06/16/22 13:46 oxycodone [OXYCODONE] AdvReac Intermediate VOMITING Verified 06/16/22 13:46 Review of Systems Review of Systems: Pertinent positives and negatives as stated in HPI [facility] Past Medical History Source: nursing notes reviewed Medical History Abscess Benign paroxysmal positional vertigo Depression with anxiety Diabetes mellitus Essential hypertension GERD (gastroesophageal reflux disease) Hand numbness Herpes simplex type 2 infection Hospital discharge follow-up Impaired glucose tolerance Insomnia Left knee pain Left leg pain Migraines Mild persistent asthma Mild recurrent major depression Mixed hyperlipidemia Nausea Supraventricular tachycardia Surgical History History of cardiac radiofrequency ablation History of esophagogastroduodenoscopy (EGD) History of removal of cyst History of surgery History of total abdominal hysterectomy Hx of colonoscopy Family History Family History Father Brain cancer Mother Esophageal cancer Sister Breast cancer Paternal Uncle Diabetes Hypertension Social History Social History Household Members: Children Housing: House Do you presently have visiting nurse or other home services: Yes Alcohol intake: never Patient Tobacco Use Status: Never used Tobacco e-Cigarette/Vaping Use: Never Used Second Hand Smoke Exposure: No Advance Directives: No Advance Directives Information Provided: Yes service: No Current occupational status: unemployed Sexual orientation: Straight/Heterosexual Gender identity: Female Cognitive needs: No Hearing needs: No Vision needs: No Physical Exam Vital Signs: Vital Signs: Last Vital Signs Temp 96.7 F L 06/23/22 02:36 Pulse 100 06/23/22 04:03 Resp 22 H 06/23/22 04:03 BP 126/96 H 06/23/22 02:36 Pulse Ox 98 06/23/22 02:36 O2 Del Method Room Air 06/23/22 02:36 BMI result Body Mass Index 25.8 VITAL SIGNS: Reviewed. GENERAL: Well developed, well nourished, in moderate distress. HEAD: Normocephalic/atraumatic EYES: PERRLA, EOMI EARS: Ext canals without abnormality, TMs non-bulging and non-erythematous NOSE: Nares patent bilateral OROPHARYNX: no oral lesions noted, posterior pharynx clear and non-erythematous without noted tonsillar enlargement/erythema/exudates NECK: Supple, no adenopathy LUNGS: Normal breath sounds, no significant wheeze/rhonchi/rales but tachypnea is present. SpO2<98> CARDIOVASCULAR: Regular rate and rhythm without noted murmurs, no JVD or lower extremity edema. ABDOMEN: Soft, non-tender, non-distended with bowel sounds. MUSCULOSKELETAL: No tenderness, deformities, or effusions noted on gross inspection. EXTREMITIES: No cyanosis, clubbing or edema. SKIN: Inspection of the skin reveals no rashes NEUROLOGIC: Alert and oriented x 4. Strength and sensation to light touch were grossly intact x 4. Medications Administered Discontinued Medications Generic Name Dose Route Start Last Admin Trade Name Freq PRN Reason Stop Dose Admin Acetaminophen 975 mg 06/23/22 03:58 06/23/22 04:03 Acetaminophen 325 Mg Tablet PO 06/23/22 03:59 975 mg ONCE ONE Administration Benzonatate 200 mg 06/23/22 03:22 06/23/22 03:59 Benzonatate 100 Mg Capsule PO 06/23/22 03:23 200 mg ONCE ONE Administration Albuterol Sulfate 5 mg/ 0 mg 06/23/22 03:23 06/23/22 03:55 Albuterol/Ipratropium 3 ml INHALE 06/23/22 03:24 1 each ONCE ONE Administration Ibuprofen 400 mg 06/23/22 03:58 06/23/22 04:02 Ibuprofen 400 Mg Tablet PO 06/23/22 03:59 400 mg ONCE ONE Administration Prednisone 50 mg 06/23/22 04:59 06/23/22 05:36 Prednisone 10 Mg Tablet PO 06/23/22 05:00 50 mg ONCE ONE Administration Sucralfate 1 gm 06/23/22 04:59 06/23/22 05:03 Sucralfate Oral Suspension 1 Gm/10 Ml Oral.Susp PO 06/23/22 05:00 1 gm ONCE ONE Administration Medical Decision Making Medical Decision Making MDM Narrative: 57-year-old female with history and clinical presentation consistent with pleurisy likely secondary to repeated coughing and asthma symptoms. 0505: I reviewed all investigations in my interpretation the patient has had a combination of persistent cough that has exacerbated her underlying asthma, she received a treatment here in the emergency room with good results and otherwise states that she is feeling better on re-evaluation. She will be discharged on a short course of steroids as well as cough medication. She is encouraged to follow-up with her primary care provider. Differential Diagnosis Please see the discussion above Lab Data Please see the discussion above 06/23/22 02:54 06/23/22 02:54 Labs: Lab Results 06/23/22 06/23/22 06/23/22 Range/Units 02:54 02:54 02:54 WBC 8.5 (4.8-10.8) X10*3/uL RBC 4.90 (4.20-5.50) X10*6/uL Hgb 14.1 (12.0-16.0) g/dl Hct 43.1 (37.0-47.0) % MCV 88.0 (80.0-98.0) fL MCH 28.8 (27.0-33.0) pg MCHC 32.7 (31.0-35.0) g/dl RDW 13.7 (11.0-16.0) % Plt Count 321 D (160-400) X10*3/uL MPV 8.7 L (9.4-12.3) fL Immature Gran % (Auto) 1.1 H (0.0-0.4) % Neut % (Auto) 75.0 H (45-73) % Lymph % (Auto) 18.3 L (20-40) % Hamlin % (Auto) 4.7 (2-11) % Eos % (Auto) 0.4 (0-4) % Baso % (Auto) 0.5 (0-2) % Lymph # (Auto) 1.6 (1.2-4.9) X10*3/uL Hamlin # (Auto) 0.4 (0.1-1.2) X10*3/uL Eos # (Auto) 0.0 (0.0-0.4) X10*3/uL Baso # (Auto) 0.0 (0.0-0.2) X10*3/uL Abs Immat Gran (auto) 0.09 H (0.00-0.03) X10*3/uL Absolute Neuts (auto) 6.4 (2.0-8.3) x10*3/uL Absolute Nucleated RBC 0.000 (0.0-0.012) X10*3/uL Nucleated RBC % (auto) 0.0 (0.0-0.2) /100WBC Sodium 139 (135-145) mmol/L Potassium 4.3 (3.3-5.1) mmol/L Chloride 106 (96-108) mmol/L Carbon Dioxide 20 L (22-29) mmol/L Anion Gap 17 (12-20) BUN 9 (9-16) mg/dL Creatinine 0.89 (0.5-1.4) mg/dL Estim Creat Clear Calc 76.2 Estimated GFR > 60 Random Glucose 331 H (60-115) mg/dL Calcium 9.4 (8.4-10.2) mg/dL Troponin I High Sens < 2.7 (<3.5-17.0) ng/L Acetone, Qual Negative (Negative) COVID-19 (MARY) (Negative) COVID-19 Clin Com 06/23/22 Range/Units 03:59 WBC (4.8-10.8) X10*3/uL RBC (4.20-5.50) X10*6/uL Hgb (12.0-16.0) g/dl Hct (37.0-47.0) % MCV (80.0-98.0) fL MCH (27.0-33.0) pg MCHC (31.0-35.0) g/dl RDW (11.0-16.0) % Plt Count (160-400) X10*3/uL MPV (9.4-12.3) fL Immature Gran % (Auto) (0.0-0.4) % Neut % (Auto) (45-73) % Lymph % (Auto) (20-40) % Hamlin % (Auto) (2-11) % Eos % (Auto) (0-4) % Baso % (Auto) (0-2) % Lymph # (Auto) (1.2-4.9) X10*3/uL Hamlin # (Auto) (0.1-1.2) X10*3/uL Eos # (Auto) (0.0-0.4) X10*3/uL Baso # (Auto) (0.0-0.2) X10*3/uL Abs Immat Gran (auto) (0.00-0.03) X10*3/uL Absolute Neuts (auto) (2.0-8.3) x10*3/uL Absolute Nucleated RBC (0.0-0.012) X10*3/uL Nucleated RBC % (auto) (0.0-0.2) /100WBC Sodium (135-145) mmol/L Potassium (3.3-5.1) mmol/L Chloride (96-108) mmol/L Carbon Dioxide (22-29) mmol/L Anion Gap (12-20) BUN (9-16) mg/dL Creatinine (0.5-1.4) mg/dL Estim Creat Clear Calc Estimated GFR Random Glucose (60-115) mg/dL Calcium (8.4-10.2) mg/dL Troponin I High Sens (<3.5-17.0) ng/L Acetone, Qual (Negative) COVID-19 (MARY) Negative (Negative) COVID-19 Clin Com See Note Independent Interpretation I performed an independent interpretation of an: EKG Interpretation: Sinus tachycardia, HR-112, no STEMI, NV/QRS/QTC is within normal limits. Radiology Impression Radiologist Impression: My interpretation is in agreement with radiology's impression of the imaging studies. External Record Review External record reviewed: Outpatient record and Prior outpatient labs Chronic Conditions Patient?s care impacted by: Diabetes Discharge Plan Discharge Clinical Impression: Asthma exacerbation, Cough Patient Disposition: Home, Self-Care Instructions: Asthma (ED), Acute Cough (ED) Additional Instructions: 1. Reanudar todos los medicamentos caseros seg?n lo prescrito. 2. Complete el curso corto de esteroides que le morris recetado. 3. Le morris dado hair receta para el control de la tos. 4. Ras un seguimiento con duncan proveedor de atenci?n primaria en los pr?ximos 1 a 2 d?as. Regrese a la josé miguel de emergencias si los s?ntomas empeoran. 1. Resume all home medications as prescribed. 2. Please complete the short course of steroids that have been prescribed. 3. You have been given prescription for cough control. 4. Follow-up with your primary care provider in the next 1-2 days. Return to the ER for any worsening symptoms. Prescriptions: New benzonatate 200 mg capsule 200 mg PO TID PRN (Reason: cough) Qty: 14 0RF prednisone 50 mg tablet 50 mg PO DAILY 4 Days Qty: 4 0RF No Action (DME) Aeroneb Go Nebulizer Misc See Rx Instructions .Route Qty: 1 0RF Rx Instructions: As directed albuterol sulfate [ProAir HFA] 90 mcg/actuation HFA aerosol inhaler 2 puff inhalation Q6H PRN (Reason: shortness of breath or wheezing) 30 Days Qty: 6.7 1RF (DME) blood-glucose meter [FreeStyle Lite Meter] Kit See Rx Instructions .Route Qty: 1 0RF Rx Instructions: As directed (DME) lancets [FreeStyle Lancets] 28 gauge misc See Rx Instructions .Route Qty: 100 3RF Rx Instructions: Use 1 lancet once a day (DME) FreeStyle Test Strip See Rx Instructions .Route Qty: 100 3RF Rx Instructions: Use 1 test strip once a day metformin 850 mg tablet 850 mg PO BID 90 Days Qty: 180 1RF furosemide 40 mg tablet 40 mg PO DAILY 90 Days Qty: 90 3RF bisacodyl 5 mg tablet,delayed release (DR/EC) 5 mg PO BEDTIME 90 Days Qty: 90 1RF paroxetine HCl 40 mg tablet 1 tab PO DAILY cholecalciferol (vitamin D3) 25 mcg (1,000 unit) capsule 1 cap PO DAILY Xolair 150 mg/mL syringe 300 mg subcut Q4W Trulicity 1.5 mg/0.5 mL pen injector 1.5 mg subcut TH meclizine 25 mg Tablet 25 mg PO Q6H PRN (Reason: Vertigo) Qty: 30 0RF lorazepam 1 mg tablet 1 mg PO TID PRN (Reason: Anxiety) zolpidem 10 mg tablet 10 mg PO BEDTIME PRN (Reason: Insomnia) Advair HFA 115-21 mcg/actuation HFA aerosol inhaler 2 puff PO Q4-6H ondansetron 4 mg tablet,disintegrating 4 mg PO Q8H PRN (Reason: nausea and vomiting) Qty: 20 0RF rosuvastatin 40 mg tablet 40 mg PO DAILY 90 Days Qty: 90 1RF fenofibrate 54 mg tablet 54 mg PO DAILY 90 Days Qty: 90 1RF esomeprazole magnesium 40 mg capsule,delayed release(DR/EC) 40 mg PO DAILY Qty: 90 1RF paroxetine HCl 10 mg tablet 10 mg PO DAILY Referrals: Kayy Escobar MD [Primary Care Provider] - Print Language: [place] African
[2022-06-23 03:53] LABS: Acetone, serum QL Negative (Negative)
[2022-06-23] MEDS: Benzonatate 100 MG CAPSULE 200 MG PO (03:59)
[2022-06-23] MEDS: Ibuprofen 400 MG TABLET PO (04:02)
[2022-06-23 04:03] VITALS: PULSE 100; RESP 22; O2SAT 93
[2022-06-23] MEDS: Acetaminophen 325 MG TABLET 975 MG PO (04:03)
[2022-06-23 04:16] LABS: COVID-19 Test Negative (Negative); IDNOW Serial# 6674DD1D
[2022-06-23] MEDS: Sucralfate Oral Suspension 1 GM/10 ML ORAL.SUSP PO (05:03)
[2022-06-23] MEDS: predniSONE 10 MG TABLET 50 MG PO (05:36)
== END 2022-06-23 05:58 | disposition home or self-care (01) ==
PROVIDERS: Emergency Provider Student in an Organized Health Care Education/Training Program; PCP Internal Medicine
DX: J45.901 Unspecified asthma with (acute) exacerbation (principal); R07.89 Other chest pain; R05.9 Cough, unspecified; Z79.899 Other long term (current) drug therapy; Z20.822 Contact with and (suspected) exposure to COVID-19; Z20.828 Contact with and (suspected) exposure to other viral communicable diseases
CPT/HCPCS: 36415; 71046; 80048; 82009; 84484; 85025; 87635; 93005; 94640; 99284

== ENCOUNTER → 2022-06-28 09:39 | Outpatient (BNVA) | payer OTHER, SELFPAY | PROVIDERS: PCP Internal Medicine; Referring Provider Internal Medicine; Visit Provider Internal Medicine Gastroenterology | DX: K21.00 Gastro-esophageal reflux disease with esophagitis, without bleeding (principal) | CPT/HCPCS: 99212 ==

== ENCOUNTER 2022-06-29 07:46 | Day surgery (SDC) | payer OTHER, SELFPAY ==
--- NOTE | 2022-06-28 12:19 | HO.ANESPROP2 ---
Documented by User: Radha Dan NP 06/28/22 12:23 HPI - Anesthesia Eval Consult details Narrative: 56yo F for Upper Endoscopy with Balloon Dilitation s/p EGD 11/2021 with [facility] 06/2022 with asthma exac - rx'd 4 day prednisone Stable at 09/2021 cardiac office visit. Nml CTA. SOB likely pulmo related Pulmo visit 11/2021, suboptimal control of asthma, pt to start Xolair PMFSH Active Problems Active Problems: All Active Problems (Updated 06/24/22 @ 00:14 by Lily Guajardo) Sinusitis (Acute) Encounter for annual routine gynecological examination (Acute) Right foot pain (Acute) Left foot pain (Acute) Allergic reaction (Acute) Hyperlipidemia LDL goal <70 (Acute) Left sciatic nerve pain (Acute) Physical exam (Acute) Hypomagnesemia (Acute) Hospital discharge follow-up (Acute) Abscess (Acute) Essential hypertension (Acute) Abnormal EKG (Acute) Abnormal nuclear cardiac imaging test (Acute) Diabetes mellitus (Acute) Post covid-19 condition, unspecified (Acute) Environmental allergies (Acute) Asthma (Acute) Migraines (Acute) Hand numbness (Acute) SOB (shortness of breath) on exertion (Acute) Mild persistent asthma (Acute) Impaired glucose tolerance (Acute) Mild recurrent major depression (Acute) Herpes simplex type 2 infection (Acute) Mixed hyperlipidemia (Acute) Supraventricular tachycardia (Acute) Left leg pain (Acute) GERD (gastroesophageal reflux disease) (Acute) Insomnia (Acute) Left knee pain (Acute) Nausea (Acute) Depression with anxiety (Acute) Past Medical History Medical History (Updated 06/29/22 @ 08:01 by Evelyn Russ RN) Abscess Benign paroxysmal positional vertigo Depression with anxiety Diabetes mellitus Essential hypertension GERD (gastroesophageal reflux disease) Hand numbness Herpes simplex type 2 infection Hospital discharge follow-up Hx of acute myeloid leukemia in remission Impaired glucose tolerance Insomnia Left knee pain Left leg pain Migraines Mild persistent asthma Mild recurrent major depression Mixed hyperlipidemia Nausea Supraventricular tachycardia Family History Family History Father Brain cancer Mother Esophageal cancer Sister Breast cancer Paternal Uncle Diabetes Hypertension Family history of problems with anesthesia: No Surgical History Surgical History History of cardiac radiofrequency ablation History of esophagogastroduodenoscopy (EGD) History of removal of cyst History of surgery History of total abdominal hysterectomy Hx of colonoscopy History of Problems with Anesthesia: No Social History Social History Household Members: Children Housing: House Do you presently have visiting nurse or other home services: Yes Alcohol intake: never Patient Tobacco Use Status: Never used Tobacco e-Cigarette/Vaping Use: Never Used Second Hand Smoke Exposure: No service: No Current occupational status: unemployed Sexual orientation: Straight/Heterosexual Gender identity: Female Cognitive needs: No Hearing needs: No Vision needs: No Meds Allergies Allergy/AdvReac Type Severity Reaction Status Date / Time bee pollen [BEE STINGS] Allergy Intermediate RASH Verified 06/28/22 09:52 SWELLING PAIN FULL. phentermine Allergy Intermediate ANXIETY Verified 06/28/22 09:52 tramadol Allergy Intermediate stomach Verified 06/28/22 09:52 upset adhesive tape [ADHESIVE TAPE] Allergy Mild RASH Verified 06/28/22 09:52 oxycodone [OXYCODONE] AdvReac Intermediate VOMITING Verified 06/28/22 09:52 Home Medications Medication Instructions Recorded Confirmed Last Taken Type lorazepam 1 mg tablet 1 mg PO TID PRN Anxiety 02/13/20 06/29/22 Unknown History zolpidem 10 mg tablet 10 mg PO BEDTIME PRN Insomnia 02/13/20 06/29/22 Unknown History fluticasone propionate 115 2 puff PO Q4-6H 05/06/21 06/29/22 Unknown History mcg-salmeterol 21 mcg/actuation HFA inhaler (Advair HFA) paroxetine HCl 10 mg tablet 10 mg PO DAILY 10/19/21 06/29/22 Unknown History cholecalciferol (vitamin D3) 25 1 cap PO DAILY 05/14/22 06/29/22 Unknown History mcg (1,000 unit) capsule dulaglutide 1.5 mg/0.5 mL 1.5 mg subcut TH 05/14/22 06/29/22 Unknown History subcutaneous pen injector (Trulicity) omalizumab 150 mg/mL subcutaneous 300 mg subcut Q4W 05/14/22 06/29/22 Unknown History syringe (Xolair) paroxetine HCl 40 mg tablet 1 tab PO DAILY 05/14/22 06/29/22 Unknown History rosuvastatin 10 mg tablet 10 mg PO BEDTIME 06/28/22 06/29/22 Unknown History Exam Exam Date and Time: June 28, 2022 1219 Pertinent Lab Results Pertinent Lab Results: Laboratory Tests 06/23/22 06/23/22 02:54 02:54 WBC 8.5 Hgb 14.1 Hct 43.1 Plt Count 321 D Sodium 139 Potassium 4.3 Chloride 106 Carbon Dioxide 20 L BUN 9 Creatinine 0.89 Narrative Narrative: EKG 06/2022 Vent. Rate : 112 BPM ? ? Atrial Rate : 112 BPM ?? P-R Int : 138 ms? QRS Dur : 084 ms ? ? QT Int : 344 ms ? ? ? P-R-T Axes : 055 -05 032 degrees ?? QTc Int : 469 ms ? Sinus tachycardia Otherwise normal ECG No significant changes when compared with the previous EKG? of 14 may 2022 ECHO 05/2021 Conclusions: - The left ventricular systolic function is normal.? The ? calculated ejection fraction is 57% by biplane method. ? - Mild to moderate focal hypertrophy of the basal septum.? - No obvious valvular pathology seen on this study.?? NM cardiolite stress test 04/2021 Impression: ? 1.? Myocardial perfusion imaging study shows likely normal perfusion. Reversible distal anterior defect, but improving with CT attenuation correction; also with normal contractility on gating, and hence suggestive of soft tissue attenuation artifact. 2.? Gated LVEF is 59% during stress and 58% during rest. 3. Transient ischemic dilatation not present. ? EKG component of the test reported separately. CTA 2021 (per 09/2021 cardiac visit) Nml coronary arteries PFT 06/2021 INTERPRETATION:? No obstructive ventilatory defect.? No significant response to bronchodilators was noted.? There is a moderate decrease in maximum voluntary ventilation secondary to likely deconditioning, although cannot rule out neuromuscular conditions.? The patient does have a restrictive ventilatory defect consistent mild restrictive lung disease.? The patient also has a decrease in the expiratory reserve volume secondary to likely an elevated BMI that may be contributing to the decrease in the lung capacity.? The patient does have a mild diffusion impairment that does correct to normal when correcting for the alveolar volume.? Clinical correlation is warranted. Assessment and Plan Assessment Anesthesia Assessment: Chart Reviewed Final Anesthetic Review Family History of Problems with Anesthesia: No History of Problems with Anesthesia: No Documented by User: Micheal Avila MD 06/29/22 17:52 HPI - Anesthesia Eval Consult details Narrative: 56yo F for Upper Endoscopy with Balloon Dilitation s/p EGD 11/2021 with [facility] ED 06/2022 with asthma exac - rx'd 4 day prednisone Stable at 09/2021 cardiac office visit. Nml CTA. SOB likely pulmo related Pulmo visit 11/2021, suboptimal control of asthma, pt to start Xolair Post prednisone treatment patient states that her Asthma symptoms have significantly improved . [facility] Past Medical History Medical History (Updated 06/29/22 @ 08:01 by Evelyn Russ RN) Abscess Benign paroxysmal positional vertigo Depression with anxiety Diabetes mellitus Essential hypertension GERD (gastroesophageal reflux disease) Hand numbness Herpes simplex type 2 infection Hospital discharge follow-up Hx of acute myeloid leukemia in remission Impaired glucose tolerance Insomnia Left knee pain Left leg pain Migraines Mild persistent asthma Mild recurrent major depression Mixed hyperlipidemia Nausea Supraventricular tachycardia Functional capacity: independent ambulation Family History Family History Father Brain cancer Mother Esophageal cancer Sister Breast cancer Paternal Uncle Diabetes Hypertension Surgical History Surgical History History of cardiac radiofrequency ablation History of esophagogastroduodenoscopy (EGD) History of removal of cyst History of surgery History of total abdominal hysterectomy Hx of colonoscopy Social History Social History Household Members: Children Housing: House Do you presently have visiting nurse or other home services: Yes Alcohol intake: never Patient Tobacco Use Status: Never used Tobacco e-Cigarette/Vaping Use: Never Used Second Hand Smoke Exposure: No service: No Current occupational status: unemployed Sexual orientation: Straight/Heterosexual Gender identity: Female Cognitive needs: No Hearing needs: No Vision needs: No Meds Allergies Allergy/AdvReac Type Severity Reaction Status Date / Time bee pollen [BEE STINGS] Allergy Intermediate RASH Verified 06/28/22 09:52 SWELLING PAIN FULL. phentermine Allergy Intermediate ANXIETY Verified 06/28/22 09:52 tramadol Allergy Intermediate stomach Verified 06/28/22 09:52 upset adhesive tape [ADHESIVE TAPE] Allergy Mild RASH Verified 06/28/22 09:52 oxycodone [OXYCODONE] AdvReac Intermediate VOMITING Verified 06/28/22 09:52 Home Medications Medication Instructions Recorded Confirmed Last Taken Type lorazepam 1 mg tablet 1 mg PO TID PRN Anxiety 02/13/20 06/29/22 Unknown History zolpidem 10 mg tablet 10 mg PO BEDTIME PRN Insomnia 02/13/20 06/29/22 Unknown History fluticasone propionate 115 2 puff PO Q4-6H 05/06/21 06/29/22 Unknown History mcg-salmeterol 21 mcg/actuation HFA inhaler (Advair HFA) paroxetine HCl 10 mg tablet 10 mg PO DAILY 10/19/21 06/29/22 Unknown History cholecalciferol (vitamin D3) 25 1 cap PO DAILY 05/14/22 06/29/22 Unknown History mcg (1,000 unit) capsule dulaglutide 1.5 mg/0.5 mL 1.5 mg subcut TH 05/14/22 06/29/22 Unknown History subcutaneous pen injector (Trulicity) omalizumab 150 mg/mL subcutaneous 300 mg subcut Q4W 05/14/22 06/29/22 Unknown History syringe (Xolair) paroxetine HCl 40 mg tablet 1 tab PO DAILY 05/14/22 06/29/22 Unknown History rosuvastatin 10 mg tablet 10 mg PO BEDTIME 06/28/22 06/29/22 Unknown History Exam Airway Mallampati Class: IV TM Dist: >3cm Neck ROM: Full Partial: Upper Loose/Missing/Broken Teeth: Yes Assessment and Plan Assessment Anesthesia Assessment: Anesthesia Plan Discussed Final Anesthetic Review NPO: Yes ASA Class: III Final Preanesthetic Review: Meds/Allgs Chart Reviewed, Consent Obtained/Reviewed and Anes Risks/Benef Reviewed Patient Risk: Intermediate Procedure Risk: Intermediate Anesthetic Plan Anesthetic Plan: MAC: and Agree w/ Assess. and Plan Disposition: Standard PACU
[2022-06-29 08:08] VITALS: BMI 35.5
[2022-06-29 08:12] VITALS: BP 153/92; PULSE 92; RESP 16; TEMP 36.6; O2SAT 96
[2022-06-29 08:38] LABS: Glucose, Whole Blood 163 mg/dL (60-115)
[2022-06-29] MEDS: Lactated Ringers 1,000 ML 50 ML IVCONT (08:45)
--- NOTE | 2022-06-29 09:22 | MHC.SHP ---
Pre-Procedural Eval Section A Date of Service: 06/29/22 The patient is an INPATIENT: No The History & Physical has been completed within 30 days and I have reviewed it.: Yes Section B Chief Complaint: Dysphagia, unspecified Allergies: Allergies Allergy/AdvReac Type Severity Reaction Status Date / Time bee pollen [BEE STINGS] Allergy Intermediate RASH Verified 06/28/22 09:52 SWELLING PAIN FULL. phentermine Allergy Intermediate ANXIETY Verified 06/28/22 09:52 tramadol Allergy Intermediate stomach Verified 06/28/22 09:52 upset adhesive tape [ADHESIVE TAPE] Allergy Mild RASH Verified 06/28/22 09:52 oxycodone [OXYCODONE] AdvReac Intermediate VOMITING Verified 06/28/22 09:52 Plan Diagnosis/Plan: Unchanged I have reviewed the history and physical and performed a pertinent physical examination on my patient. No changes have occurred unless specified. Time Spent With Patient Time: Total time managing care of this patient today ____ minutes.
--- NOTE | 2022-06-29 09:23 | P.OP_ITS ---
Operative Note Operative Note Date of Service: 06/29/22 Narrative: Procedure Description: EGD Indication: dysphagia Anesthesia: MAC FLEXIBLE TRANSORAL UPPER GASTROINTESTINAL ENDOSCOPY UPPER ENDOSCOPY Consent: Indications for the procedure and potential complications of bleeding, perforation, reaction to medications and missed diagnosis were discussed with the patient and informed consent was obtained. Instrument: Olympus GIF H 190 J mid size upper endoscope Monitoring: Vital signs and clinical assessment, continuous EKG monitoring, Pulse oximetry, Carbon Dioxide monitoring and blood pressure monitoring were done throughout the procedure. Procedure: The patient was placed in the left lateral decubitis position and pre-procedure medications were administered and a bite block was placed. The endoscope was inserted into the mouth and advanced under direct vision to the third part of duodenum. A careful inspection was made as the upper endoscope was withdrawn including a retroflexed examination of the proximal stomach; Findings and interventions are described below. Findings: Larynx:normal Esophagus: GE junction at 36? cm, diaphragm hiatus at 38 cm, compatible with 2 cm sliding hiatal hernia. Mild bogginess and edema at GEJ, bx taken from here but seemed better than last time, LEs dilated to 20 mm and UES dilated to 20 mm without tear seen. Schatzki ring also noted. Stomach: Patchy gastric erythema. Biopsies were obtained. Grade 2 flap valve on retroflexed examination of the cardia. There were clusters of fundic gland appearing polyps, some of these were biopsied due to v pale appearance. The p yloric outlet seemed slightly tight so dilated to 20 mm with resistance felt. Duodenum: Normal bulb and descending duodenum, Intervention: Biopsies as noted above, balloon dilation Impression/Findings: esophagitis gastritis fundic gland polyps small hiatal hernia schatzki ring PLAN: await result,s if h pylori pos then treat might increase PPI or change depending on results regular diet as tolerated
[2022-06-29 10:11] VITALS: BP 126/88; PULSE 89; RESP 15; TEMP 36.3; O2SAT 95
[2022-06-29 10:26] VITALS: BP 151/96; PULSE 91; RESP 15; TEMP 36.3; O2SAT 96
== END 2022-06-29 11:36 | disposition home or self-care (01) ==
PROVIDERS: PCP Internal Medicine; Visit Provider Internal Medicine Gastroenterology
PROC: (CPT 43249; principal; 2022-06-29 09:20)
DX: K20.80 Other esophagitis without bleeding (principal); Z80.0 Family history of malignant neoplasm of digestive organs; K22.2 Esophageal obstruction; K29.50 Unspecified chronic gastritis without bleeding; K31.7 Polyp of stomach and duodenum; K44.9 Diaphragmatic hernia without obstruction or gangrene; K21.9 Gastro-esophageal reflux disease without esophagitis; E11.9 Type 2 diabetes mellitus without complications; E78.5 Hyperlipidemia, unspecified; I10 Essential (primary) hypertension; J45.30 Mild persistent asthma, uncomplicated; Z79.84 Long term (current) use of oral hypoglycemic drugs; Z79.51 Long term (current) use of inhaled steroids; Z79.899 Other long term (current) drug therapy; L23.1 Allergic contact dermatitis due to adhesives; Z88.8 Allergy status to other drugs, medicaments and biological substances
CPT/HCPCS: 43249; 43245; 43239; 82947; 88305; 88342; C1726; J3010

== ENCOUNTER 2022-06-30 09:48 | Outpatient (REF) | payer OTHER, SELFPAY | END 2022-06-30 09:49 | disposition home or self-care (01) | LOC: HO.LAB 09:48 | PROVIDERS: PCP Internal Medicine; Visit Provider Internal Medicine Gastroenterology | DX: K20.90 Esophagitis, unspecified without bleeding (principal); Z91.09 Other allergy status, other than to drugs and biological substances | CPT/HCPCS: 36415; 86003 ==

== ENCOUNTER → 2022-07-09 12:50 | Outpatient (BNVA) | payer OTHER, SELFPAY | PROVIDERS: PCP Internal Medicine; Visit Provider Internal Medicine Pulmonary Disease | DX: R06.00 Dyspnea, unspecified (principal); J45.30 Mild persistent asthma, uncomplicated; I47.1 Supraventricular tachycardia; H81.10 Benign paroxysmal vertigo, unspecified ear; Z91.09 Other allergy status, other than to drugs and biological substances | CPT/HCPCS: 99212 ==

== ENCOUNTER 2022-07-12 08:20 | Outpatient (REF) | payer OTHER, SELFPAY | END 2022-07-12 08:21 | disposition home or self-care (01) | LOC: HO.MDS 08:20 | PROVIDERS: Visit Provider Internal Medicine Pulmonary Disease | DX: J45.50 Severe persistent asthma, uncomplicated (principal) | CPT/HCPCS: 96372 ==

== ENCOUNTER 2022-08-09 07:58 | Outpatient (REF) | payer OTHER, SELFPAY | END 2022-08-09 07:59 | disposition home or self-care (01) | LOC: HO.MDS 07:58 | PROVIDERS: Visit Provider Internal Medicine Pulmonary Disease | DX: J45.50 Severe persistent asthma, uncomplicated (principal) | CPT/HCPCS: 96372; 99212 ==

== ENCOUNTER 2022-09-06 10:41 | Outpatient (REF) | payer OTHER, SELFPAY | END 2022-09-06 10:42 | disposition home or self-care (01) | LOC: HO.MDS 10:41 | PROVIDERS: Visit Provider Internal Medicine Pulmonary Disease | DX: J45.50 Severe persistent asthma, uncomplicated (principal) | CPT/HCPCS: 96372 ==

== ENCOUNTER 2022-09-22 08:10 | Outpatient (REF) | payer OTHER, SELFPAY ==
--- NOTE | ~2022-09-22 | XR_ITS ---
EXAMINATION: XR HAND, RIGHT XR HAND, LEFT CLINICAL INFORMATION: Bilateral hand pain. COMPARISON: None available. TECHNIQUE: 3 views of each hand. FINDINGS: LEFT HAND: There is no evidence of acute fracture or dislocation. No destructive bony lesions. There is some narrowing of the 3rd and 5th distal interphalangeal joints. Otherwise, joint spaces are maintained. No significant erosive changes are appreciated. There is mild negative ulnar variance. RIGHT HAND: There is no evidence of acute fracture or dislocation of the right hand. No destructive bony lesions identified. There is some narrowing of the 2nd, 3rd, and 5th distal interphalangeal joints with minor spurring. Remainder of joint spaces are maintained. No erosive changes are noted. There is mild negative ulnar variance. XR/XR hand RT min 3V IMPRESSION: Mild degenerative change of both hands as described without evidence of erosive arthritides.
--- NOTE | ~2022-09-22 | XR_ITS ---
EXAMINATION: XR HAND, RIGHT XR HAND, LEFT CLINICAL INFORMATION: Bilateral hand pain. COMPARISON: None available. TECHNIQUE: 3 views of each hand. FINDINGS: LEFT HAND: There is no evidence of acute fracture or dislocation. No destructive bony lesions. There is some narrowing of the 3rd and 5th distal interphalangeal joints. Otherwise, joint spaces are maintained. No significant erosive changes are appreciated. There is mild negative ulnar variance. RIGHT HAND: There is no evidence of acute fracture or dislocation of the right hand. No destructive bony lesions identified. There is some narrowing of the 2nd, 3rd, and 5th distal interphalangeal joints with minor spurring. Remainder of joint spaces are maintained. No erosive changes are noted. There is mild negative ulnar variance. XR/XR hand LT min 3V IMPRESSION: Mild degenerative change of both hands as described without evidence of erosive arthritides.
[2022-09-22 08:31] LABS: MANUAL DIFF FLAG NO
[2022-09-22 08:58] LABS: Basophils Absolute Auto 0.1 X10*3/uL (0.0-0.2); Basophils Percent Auto 0.8 % (0-2); Eosinophils Absolute Auto 0.2 X10*3/uL (0.0-0.4); Eosinophils Percent Auto 3.7 % (0-4); Hematocrit 45.8 % (37.0-47.0); Hemoglobin 14.6 g/dl (12.0-16.0); Imm Gran Abs Auto 0.03 X10*3/uL (0.00-0.03); Imm Gran Pct Auto 0.5 % (0.0-0.4); Lymphocytes Absolute Auto 2.4 X10*3/uL (1.2-4.9); Lymphocytes Percent Auto 35.8 % (20-40); Mean Corpuscular HGB Conc 31.9 g/dl (31.0-35.0); Mean Corpuscular Hemoglobin 28.7 pg (27.0-33.0); Mean Corpuscular Volume 90.2 fL (80.0-98.0); Mean Platelet Volume 8.9 fL (9.4-12.3); Monocytes Absolute Auto 0.6 X10*3/uL (0.1-1.2); Monocytes Percent Auto 9.3 % (2-11); Neutrophils Absolute Auto 3.3 x10*3/uL (2.0-8.3); Neutrophils Percent Auto 49.9 % (45-73); Platelet Count 251 X10*3/uL (160-400); Red Blood Count 5.08 X10*6/uL (4.20-5.50); Red Cell Distribution Width 13.2 % (11.0-16.0); White Blood Count 6.6 X10*3/uL (4.8-10.8)
[2022-09-22 09:28] LABS: Creatinine Urine 118.71 mg/dL; Microalbum/Creatinine Ratio Ur 7.5 ug/mg cr
[2022-09-22 09:29] LABS: Alanine Aminotransferase 23 U/L (0-31); Albumin Level 4.6 g/dL (3.5-5.0); Alkaline Phosphatase 98 U/L (39-117); Anion Gap 14 (12-20); Aspartate Amino Transferase 18 U/L (5-31); Bilirubin Total 0.7 mg/dL (0.0-1.0); Blood Urea Nitrogen 13 mg/dL (9-16); Calcium 10.4 mg/dL (8.4-10.2); Carbon Dioxide 26 mmol/L (22-29); Chloride 105 mmol/L (96-108); Cholesterol 167 mg/dL; Estimated Glomerular Filt Rate > 60; Glucose Fasting 150 mg/dL (60-99); HDL Cholesterol 51 mg/dL; LDL Cholesterol Calculated 78 mg/dl; Magnesium 1.9 mg/dL (1.6-2.6); Potassium 4.1 mmol/L (3.3-5.1); Sodium 141 mmol/L (135-145); Total Protein 7.5 g/dL (6.5-8.0); Triglycerides 193 mg/dL
[2022-09-22 09:50] LABS: Vitamin D 25-OH Total 35.8 ng/mL (>30)
== END 2022-09-22 08:11 | disposition home or self-care (01) ==
LOC: HO.XRAY 08:10
PROVIDERS: PCP Internal Medicine; Visit Provider Internal Medicine
DX: E78.5 Hyperlipidemia, unspecified (principal); E11.9 Type 2 diabetes mellitus without complications; E83.42 Hypomagnesemia; E55.9 Vitamin D deficiency, unspecified; G43.909 Migraine, unspecified, not intractable, without status migrainosus; M79.642 Pain in left hand
CPT/HCPCS: 36415; 73130; 80053; 80061; 82043; 82306; 83735; 85025

== ENCOUNTER 2022-10-05 09:22 | Outpatient (AMB) | payer OTHER, SELFPAY ==
--- NOTE | 2022-10-05 09:27 | A.OFFPC_ITS ---
Vital Signs 10/05/22 09:29 Height 5 ft 7 in Weight 221 lb BMI 34.6 BP 126/80 Blood Pressure Location Lt brachial Position Sitting Intake Visit Reasons: Annual Exam Intake Note: Patient here for a physical exam Farrowing Manager Required: No Accompanied by: Self / Same As Patient Allergies bee pollen [BEE STINGS] Allergy (Intermediate, Verified 10/05/22 09:45) RASH SWELLING PAIN FULL. phentermine Allergy (Intermediate, Verified 10/05/22 09:45) ANXIETY tramadol Allergy (Intermediate, Verified 10/05/22 09:45) stomach upset adhesive tape [ADHESIVE TAPE] Allergy (Mild, Verified 10/05/22 09:45) RASH oxycodone [OXYCODONE] Adverse Reaction (Intermediate, Verified 10/05/22 09:45) VOMITING Medication List - Last Reconciled 10/05/22 by Kayy Aburto MD albuterol sulfate 90 mcg/actuation (ProAir HFA) 2 puffs inhalation Q6H PRN 30 days blood sugar diagnostic (FreeStyle Test strips) Use 1 test strip once a day blood-glucose meter (FreeStyle Lite Meter kit) As directed cholecalciferol (vitamin D3) 25 mcg PO DAILY dulaglutide (Trulicity) 1.5 mg (0.5 mL) subcut TH epinephrine (EpiPen 2-Larry) 0.3 mg (0.3 mL) IM Q4H PRN esomeprazole magnesium 40 mg PO DAILY fenofibrate 54 mg PO DAILY 90 days fluticasone propion-salmeterol 115-21 mcg/actuation (Advair HFA) 2 puffs PO Q4- 6H furosemide 40 mg PO DAILY ipratropium bromide 2 sprays intranasal TID-QID PRN 30 days lancets (FreeStyle Lancets) Use 1 lancet once a day loratadine 10 mg PO DAILY lorazepam 1 mg PO TID PRN meclizine 25 mg PO Q6H PRN meloxicam 15 mg PO DAILY PRN 90 days metformin 850 mg PO BID 90 days nebulizers (Aeroneb Go Nebulizer) As directed omalizumab (Xolair) 300 mg subcut Q4W omeprazole 20 mg PO DAILY ondansetron 4 mg PO Q8H PRN paroxetine HCl 1 tab PO DAILY paroxetine HCl 10 mg PO QAM rosuvastatin 10 mg PO BEDTIME zolpidem 10 mg PO BEDTIME PRN Tobacco use date assessed: 06/16/22 Dental Screening Dental Screen Date: 10/05/22 Did you have a dental visit in the last 12 months?: Yes Did you have a dental problem in the last 6 months where you did not have access to dental care?: No Was dental information given to patient?: Patient has dentist HPI HPI Comments History of Present Illness Details This is a 57-year-old female with diabetes mellitus type 2 and mild recurrent major depression that comes for her physical exam. A1c within goal. Depression stable with paroxetine. Last mammogram was October 2021 and I will order a mammogram for 2022. Has never had a bone density. No need for Pap smear due to hysterectomy for benign reasons. Last colonoscopy was 2021. No chest pain or shortness of breath. Complains of diffuse joint pain and has psoriasis follow by Dermatology. LDL not on goal and I will increase rosuvastatin. [facility] Medical History Abscess Benign paroxysmal positional vertigo Depression with anxiety Diabetes mellitus Essential hypertension GERD (gastroesophageal reflux disease) Hand numbness Herpes simplex type 2 infection Hospital discharge follow-up Hx of acute myeloid leukemia in remission Impaired glucose tolerance Insomnia Left knee pain Left leg pain Migraines Mild persistent asthma Mild recurrent major depression Mixed hyperlipidemia Nausea Supraventricular tachycardia Surgical History History of cardiac radiofrequency ablation History of esophagogastroduodenoscopy (EGD) History of removal of cyst History of surgery History of total abdominal hysterectomy Hx of colonoscopy Family History Father Brain cancer Mother Esophageal cancer Sister Breast cancer Paternal Uncle Diabetes Hypertension Social History Household Members: Children Housing: House Do you presently have visiting nurse or other home services: Yes Alcohol intake: never Patient Tobacco Use Status: Never used Tobacco e-Cigarette/Vaping Use: Never Used Second Hand Smoke Exposure: No service: No Current occupational status: unemployed Sexual orientation: Straight/Heterosexual Gender identity: Female Cognitive needs: No Hearing needs: No Vision needs: No Questionnaire Thrive Questionnaire Date Thrive assessed: 06/16/22 DICKSON-7 AMB Questionnaire DICKSON-7 Date DICKSON - 7 assessed: 06/16/22 Source: Developed by Drs. Tez Bowen, Bree Perez, Cesar Gonzalez and colleagues, with an educational alexia from [employer]. Review of Systems Const All systems reviewed & are unremarkable except as noted in HPI and below Eyes Reports no additional complaints, Denies change in vision and Denies other visual disturbances Card Denies chest pain at rest, Denies chest pain with activity, Denies edema, Denies irregular heart rhythm, Denies claudication, Denies dyspnea, Denies dyspnea on exertion, Denies orthopnea, Denies paroxysmal nocturnal dyspnea and Denies slow heart rate Resp Denies cough, Denies dyspnea and Denies dyspnea on exertion GI Denies abdominal pain, Denies change in bowel habits, Denies excessive flatus, Denies nausea and Denies vomiting Denies urinary incontinence, Denies urinary hesitancy and Denies urinary urgency Musc Denies abnormal gait, Denies atrophy, Denies deformity and Denies limited range of motion Skin/Breast Denies bleeding lesions, Denies changing lesions and Denies rash Neuro Denies abnormal gait and Denies lack of coordination Physical exam (Primary Care) Vital Signs: Last Vital Signs BP 126/80 10/05/22 09:29 BMI result Body Mass Index 34.6 Tobacco/Smoking Status: Tobacco use Status Tobacco use date assessed 06/16/22 10/05/22 09:28 Patient Tobacco Use Status Never used Tobacco 10/05/22 09:28 e-Cigarette/Vaping Use Never Used 10/05/22 09:28 Thrive Assessment: Date of Thrive Assessment Date Thrive assessed 06/16/22 10/05/22 09:28 Const Orientation/consciousness: patient oriented x3 HENMT Head: Yes normal to inspection, Yes normocephalic and Yes atraumatic Ears: external ears normal Eyes General: appearance normal, both eyes and all related structures Eyelids: Yes eyelids normal Conjunctivae: conjunctivae normal Neck Neck: Yes normal visual inspection and Yes supple Resp Effort & Inspection: normal respiratory effort Auscultation: clear to auscultation bilaterally Cardio Jugular venous distension: no JVD Rate: regular rate Rhythm: regular rhythm Heart sounds: S1 normal heart sound present and S2 normal heart sound present GI Inspection: Yes normal to inspection Palpation (GI): Soft to palpation and nontender Auscultation: normal bowel sounds Skin General skin exam: no rashes or lesions noted Neuro General: patient oriented x3 and no focal motor deficits Extrem General: Yes full ROM Psych Appearance: grossly normal Results AMB Hemoglobin A1c AMB Hemoglobin A1c 6.6 % Last Edit by REN Schilling on 10/05/22 09:4 1 Results Reviewed Results Reviewed: Laboratory Last Values Hgb A1c (Clinic) 6.6 % (4.0-6.0) H 10/05/22 09:26 Assessment and Plan Assessment & Plan (1) Physical exam: Code(s): Z00.00 - Encounter for general adult medical examination without abnormal findings Plan: Repeat in a year (2) Diabetes mellitus: Code(s): E11.9 - Type 2 diabetes mellitus without complications Plan: Continue metformin. A1c goal is equal or less than 7%. (3) Mild recurrent major depression: Code(s): F33.0 - Major depressive disorder, recurrent, mild Plan: Continue paroxetine Orders: Orders XR DEXA axial skeleton Today N95.9 - Unspecified menopausal and perimenopausal disorder MM screening mammo BI Today Z12.31 - Encounter for screening mammogram for malignant neoplasm of breast Comprehensive [place]. Panel Fast 4 Months E78.5 - Hyperlipidemia, unspecified Lipid Panel 4 Months E78.5 - Hyperlipidemia, unspecified Vitamin D 25-OH Total 4 Months E55.9 - Vitamin D deficiency, unspecified Microalbumin, Random (w Creat) 4 Months E11.9 - Type 2 diabetes mellitus without complications AMB Hemoglobin A1c Today E11.9 - Type 2 diabetes mellitus without complications Medications: New rosuvastatin 20 mg PO BEDTIME 90 days 90 tabs 1RF E78.5 - Hyperlipidemia, unspecified Discontinued rosuvastatin Discontinued Reason: Patient Completed Course 10 mg PO BEDTIME 90 tabs 0RF Coding Level of Care Code Est Pt Prev Care 40-64y(74441) Diagnoses Physical exam Z00.00 Diabetes mellitus E11.9 Mild recurrent major depression F33.0 Time Spent (min) 32
[2022-10-05 09:29] VITALS: BP 126/80; BMI 34.6
== END 2022-10-05 10:01 | disposition home or self-care (01) ==
PROVIDERS: Visit Provider Internal Medicine
DX: Z00.00 Encounter for general adult medical examination without abnormal findings (principal); E11.9 Type 2 diabetes mellitus without complications; F33.0 Major depressive disorder, recurrent, mild
CPT/HCPCS: 83036; 99396

== ENCOUNTER 2022-10-07 08:23 | Outpatient (REF) | payer OTHER, SELFPAY | END 2022-10-07 08:24 | disposition home or self-care (01) | LOC: HO.MDS 08:23 | PROVIDERS: Visit Provider Internal Medicine Pulmonary Disease | DX: J45.50 Severe persistent asthma, uncomplicated (principal) | CPT/HCPCS: 96372; J2357 ==

== ENCOUNTER 2022-10-29 08:51 | Outpatient (AMB) | payer OTHER, SELFPAY ==
--- NOTE | 2022-10-29 08:56 | MHC.OFFVIS ---
Intake Vital Signs 10/29/22 08:57 Height 5 ft 7 in Weight 220 lb 7.396 oz BMI 34.5 BP 133/86 Blood Pressure Location Lt radial Position Sitting Pulse 84 Intake Visit Reasons: 4 month fu Intake Note: Simi presents in the office as a 4 month follow up. CC: She states she would like to be sent over fiber. She is having constipation. Special Certificate Dictator Required: Yes Special Certificate Dictator Name: [id number] Emani Allergies bee pollen [BEE STINGS] Allergy (Intermediate, Verified 10/29/22 08:57) RASH SWELLING PAIN FULL. phentermine Allergy (Intermediate, Verified 10/29/22 08:57) ANXIETY tramadol Allergy (Intermediate, Verified 10/29/22 08:57) stomach upset adhesive tape [ADHESIVE TAPE] Allergy (Mild, Verified 10/29/22 08:57) RASH oxycodone [OXYCODONE] Adverse Reaction (Intermediate, Verified 10/29/22 08:57) VOMITING HPI 4 month fu HPI Details RECAP:pt of ulices ? Had GERD, on PPI--was taking prn instead of as scheduled but working for her ? constipation, on fiber and bisacodyl ? sx had improved a lot with pantoprzole and fiber diet she saw blood in stool and felt a hemorrhoid, she bought prep H and it helped ? mother of esophageal ca was a smoker. colonoscopy 2016- patty, flat hyperplastic poylp removed ? EGD 10/2018--fundic gland polyps, esophagitis--increased IEL duodenum, chronci esophagitis and gastritis ? celaic panel negative ? h pylori breath test neg ? GES 04/2019--normal --colonoscopy --11/2019--polyp removed--mucosal, benign, internal hemorrhoids, rept 3 yr due to fair prep EGD 11/26 done due to dysphagia: inflammation GEJ and dilation to 19 mm UEs and LES Path: moderate inflmamation GEJ, active esophagitis, hyperplastic polyps stomach EGD 06/2022 with dilation of esophagus and stomach esophagitis gastritis fundic gland polyps small hiatal hernia schatzki ring Path: A.? Stomach, biopsy:? Oxyntic mucosa with moderate chronic inactive inflammation; no Helicobacter organisms seen. B.? Stomach, polyps:? Fundic gland polyps with background mild chronic inactive inflammation; no Helicobacter organisms seen. C.? GE junction, biopsy: - Active esophagitis (mostly neutrophils). - No glandular epithelium identified. ALSO checked RAST; high levels for several foods incl peanuts, almonds, sesame, WHEAT ? INTERIM: she has been taking PPI regularly feels back to normal since dilation no abdominal pain no nausea no vomiting she is having constipation, taking biscodyl which helps her when needed EXAM: GENERAL: The patient is well developed and nontoxic. VITAL SIGNS:see workflow HEENT: Nonicteric sclerae, PERRLA, EOMI. Oropharynx clear. Moist mucous membranes. Conjunctivae appear well perfused. No thyroid mass. CHEST: Chest wall is nontender. HEART: Regular rate and rhythm without murmurs. LUNGS: Clear to auscultation bilaterally. ABDOMEN: Soft, positive bowel sounds, nontender, no organomegaly.no flank tenderness SKIN: No rash, no excessive bruising, petechiae, or purpura. NEUROLOGIC: Cranial nerves II-XII intact without motor/sensory deficit. Assessments ? 1. GERD with esophagitis -on PPI, better since dilation 2/ Food allergies 3/ constipation maybe slow transit or due to diet, meds PLAN: 1/ repeat egd with dilation prn, cont with PPI, taking vit D and multivitamin 2/ food allergies--rast testing?pos, she has clam dredger, gave her the list and she will follow up with them, bhavanie were folowimg upo for dust and pollen allergies 3/ sent her fiber for her constipation, ran out months ago and was helping her a lot ? ? PFSH Medical History Abscess Benign paroxysmal positional vertigo Depression with anxiety Diabetes mellitus Essential hypertension GERD (gastroesophageal reflux disease) Hand numbness Herpes simplex type 2 infection Hospital discharge follow-up Hx of acute myeloid leukemia in remission Impaired glucose tolerance Insomnia Left knee pain Left leg pain Migraines Mild persistent asthma Mild recurrent major depression Mixed hyperlipidemia Nausea Supraventricular tachycardia Surgical History History of cardiac radiofrequency ablation History of esophagogastroduodenoscopy (EGD) History of removal of cyst History of surgery History of total abdominal hysterectomy Hx of colonoscopy Family History Father Brain cancer Mother Esophageal cancer Sister Breast cancer Paternal Uncle Diabetes Hypertension Social History Household Members: Children Housing: House Do you presently have visiting nurse or other home services: Yes Alcohol intake: never Patient Tobacco Use Status: Never used Tobacco e-Cigarette/Vaping Use: Never Used Second Hand Smoke Exposure: No service: No Current occupational status: unemployed Sexual orientation: Straight/Heterosexual Gender identity: Female Cognitive needs: No Hearing needs: No Vision needs: No Physical Exam Vital Signs: BMI result Body Mass Index 34.5 Assessment & Plan Assessment & Plan (1) Constipation by delayed colonic transit: Code(s): K59.01 - Slow transit constipation (2) Allergic reaction: Code(s): T78.40XA - Allergy, unspecified, initial encounter (3) Esophagitis: Code(s): K20.90 - Esophagitis, unspecified without bleeding Medications: New psyllium husk (Metamucil) mix into at least 8 oz of water or juice before administering 1 tbsp PO BID 660 grams 6RF Coding Level of Care Code Est Pt Level 4 (27528) Diagnoses Constipation by delayed colonic transit K59.01 Allergic reaction T78.40XA Esophagitis K20.90
[2022-10-29 08:57] VITALS: BP 133/86; PULSE 84; BMI 34.5
== END 2022-10-29 09:17 | disposition home or self-care (01) ==
PROVIDERS: Visit Provider Internal Medicine Gastroenterology
DX: K59.01 Slow transit constipation (principal); T78.40XA Allergy, unspecified, initial encounter; K20.90 Esophagitis, unspecified without bleeding
CPT/HCPCS: 99214

== ENCOUNTER → 2022-10-29 08:51 | Outpatient (BNVA) | payer OTHER, SELFPAY | PROVIDERS: Visit Provider Internal Medicine Gastroenterology | DX: K59.01 Slow transit constipation (principal); T78.40XA Allergy, unspecified, initial encounter; K21.00 Gastro-esophageal reflux disease with esophagitis, without bleeding; Z79.899 Other long term (current) drug therapy | CPT/HCPCS: 99212 ==

== ENCOUNTER 2022-11-09 08:33 | Outpatient (REF) | payer OTHER, SELFPAY | END 2022-11-09 08:34 | disposition home or self-care (01) | LOC: HO.MDS 08:33 | PROVIDERS: Visit Provider Internal Medicine Pulmonary Disease | DX: J45.50 Severe persistent asthma, uncomplicated (principal) | CPT/HCPCS: 93005; 96372; 99212 ==

== ENCOUNTER 2022-11-09 08:52 | Outpatient (AMB) | payer OTHER, SELFPAY ==
--- NOTE | 2022-11-09 09:49 | A.OFFVIS_ITS ---
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 phentermine Allergy (Intermediate, Verified 11/09/22 10:00) ANXIETY tramadol Allergy (Intermediate, Verified 11/09/22 10:00) stomach upset adhesive tape [ADHESIVE TAPE] Allergy (Mild, Verified 11/09/22 10:00) RASH oxycodone [OXYCODONE] Adverse Reaction (Intermediate, Verified 11/09/22 10:00) VOMITING Medication List - Last Reconciled 11/09/22 by GERARD Concepcion albuterol sulfate 90 mcg/actuation (ProAir HFA) 2 puffs inhalation Q6H PRN 30 days bisacodyl 5 mg PO BEDTIME blood sugar diagnostic (FreeStyle Test strips) Use 1 test strip once a day blood-glucose meter (FreeStyle Lite Meter kit) As directed cholecalciferol (vitamin D3) 25 mcg PO DAILY dulaglutide (Trulicity) 1.5 mg (0.5 mL) subcut TH epinephrine (EpiPen 2-Larry) 0.3 mg (0.3 mL) IM Q4H PRN esomeprazole magnesium 40 mg PO DAILY fenofibrate 54 mg PO DAILY fluticasone propion-salmeterol 115-21 mcg/actuation (Advair HFA) 2 puffs PO Q4- 6H furosemide 40 mg PO DAILY ipratropium bromide 2 sprays intranasal TID-QID PRN 30 days lancets (FreeStyle Lancets) Use 1 lancet once a day loratadine 10 mg PO DAILY lorazepam 1 mg PO TID PRN meclizine 25 mg PO Q6H PRN meloxicam 15 mg PO DAILY PRN metformin 850 mg PO BID 90 days nebulizers (Aeroneb Go Nebulizer) As directed omalizumab (Xolair) 300 mg subcut Q4W omeprazole 20 mg PO DAILY ondansetron 4 mg PO Q8H PRN paroxetine HCl 1 tab PO DAILY paroxetine HCl 10 mg PO QAM psyllium husk (Metamucil) 1 tbsp PO BID rosuvastatin 20 mg PO BEDTIME 90 days zolpidem 10 mg PO BEDTIME PRN HPI r/s 1 year followup HPI Details Simi is a 57-year-old female past medical history of hypertension, hyperlipidemia, diabetes, obesity, SVT who presents for follow-up. Today she reports that she has been doing generally well since her last visit 09/29/2021. She will feel an occasional heart palpitation lasting only seconds. No presyncope, syncope, falls. No chest discomfort at rest or with activity. She has chronic shortness of breath with exertion which she states is unchanged. No PND, orthopnea or edema. Tolerates normal ADLs without concerning difficulty. Takes meds as directed. 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 [facility] Medical History Abscess Benign paroxysmal positional vertigo Depression with anxiety Diabetes mellitus Essential hypertension GERD (gastroesophageal reflux disease) Hand numbness Herpes simplex type 2 infection Hospital discharge follow-up Hx of acute myeloid leukemia in remission Impaired glucose tolerance Insomnia Left knee pain Left leg pain Migraines Mild persistent asthma Mild recurrent major depression Mixed hyperlipidemia Nausea Supraventricular tachycardia Surgical History History of cardiac radiofrequency ablation History of esophagogastroduodenoscopy (EGD) History of removal of cyst History of surgery History of total abdominal hysterectomy Hx of colonoscopy Family History Father Brain cancer Mother Esophageal cancer Sister Breast cancer Paternal Uncle Diabetes Hypertension Social History Household Members: Children Housing: House Do you presently have visiting nurse or other home services: Yes Alcohol intake: never Patient Tobacco Use Status: Never used Tobacco e-Cigarette/Vaping Use: Never Used Second Hand Smoke Exposure: No service: No Current occupational status: unemployed Sexual orientation: Straight/Heterosexual Gender identity: Female Cognitive needs: No Hearing needs: No Vision needs: No Review of Systems Const All systems reviewed & are unremarkable except as noted in HPI and below ENT Reports dizziness Card Details: brief palpitations Denies chest pain, Denies chest pain at rest, Denies chest pain with activity, Denies rapid heart rate, Denies pedal edema, Denies edema, Denies leg edema, Denies lightheadedness, Denies palpitations, Denies dyspnea, Denies dyspnea on exertion and Denies orthopnea Resp Denies cough, Denies dyspnea and Denies dyspnea on exertion GI Denies hematochezia and Denies change in stool character Musc Denies abnormal gait, Reports limited range of motion, Reports muscle cramps, Denies muscle weakness, Denies numbness, Denies radiating pain into limb, Denies stiffness and Denies tingling Neuro Denies abnormal gait, Reports dizziness, Denies numbness and Denies tingling Endo Denies palpitations Physical Exam Vital Signs: Last Vital Signs Pulse 88 11/09/22 09:50 BP 122/82 11/09/22 09:50 BMI result Body Mass Index 33.8 Const General: cooperative, healthy appearing, comfortable and no acute distress Orientation/consciousness: patient oriented x3 Neck Neck: Yes normal visual inspection Resp Effort & Inspection: normal respiratory effort Auscultation: clear to auscultation bilaterally, no crackles, no rales, no rhonchi and no wheezes Cardio Jugular venous distension: no JVD Rate: regular rate Rhythm: regular rhythm Heart sounds: S1 normal heart sound present, S2 normal heart sound present, no gallops, no murmurs and no rubs Neuro General: patient oriented x3 Extrem General: Yes normal to inspection, No no pedal edema and No calf tenderness Psych Appearance: grossly normal Mental Status: mental status grossly normal Speech and movement: Normal speech and movement present Office Procedures EKG Details: Today, read by me, normal sinus rhythm, no acute ST or T-wave abnormality, rate 88 [id number], Complete Assessment & Plan Assessment & Plan (1) Supraventricular tachycardia: Code(s): I47.1 - Supraventricular tachycardia Plan: History of supraventricular tachycardia. No recent documented episodes. She will feel occasional heart palpitations lasting only seconds. Not concerning to her. Last echo 05/18/2021 showed EF 57%, [id number] focal hypertrophy of the basal septum, grade 1 diastolic dysfunction. EKG done today showing normal sinus rhythm with no acute ST or T-wave abnormalities, normal MN interval, rate 88. She is not on rate slowing medications. Informed to avoid caffeinated beverages, maintain good hydration and activity as tolerated. Discussed cardiology follow-up as needed and she prefers to be seen at least once yearly. Cardiology follow-up 1 year, sooner if needed. (2) Essential hypertension: Code(s): I10 - Essential (primary) hypertension Plan: Well controlled at present. She is on Lasix which seems to be her only medication affecting blood pressure. Low-salt diet reviewed. No changes made (3) Hyperlipidemia LDL goal <70: Code(s): E78.5 - Hyperlipidemia, unspecified Plan: [place] LDL goal less than 70 in patient with diabetes. Labs done 09/22/2022 shows LDL 78. She is on rosuvastatin 20 mg daily. Benefits of weight loss and increasing physical activity reviewed with her. Primarily followed by her PCP (4) Diabetes mellitus: Code(s): E11.9 - Type 2 diabetes mellitus without complications Plan: Hemoglobin A1c goal less than 7. Followed by PCP Coding Level of Care Code Est Pt Level 3 (89352) Diagnoses Supraventricular tachycardia I47.1 Essential hypertension I10 Hyperlipidemia LDL goal <70 E78.5 Diabetes mellitus E11.9 CPT Codes EKG - CPT: 36691-[id number], Complete ([id number]) Time Spent (min) 22 Comment Chart review, documentation, interview, assessment
[2022-11-09 09:50] VITALS: BP 122/82; PULSE 88; BMI 33.8
== END 2022-11-09 10:19 | disposition home or self-care (01) ==
PROVIDERS: PCP Internal Medicine; Referring Provider Internal Medicine; Visit Provider Nurse Practitioner Family
DX: I47.1 Supraventricular tachycardia (principal); I10 Essential (primary) hypertension; E78.5 Hyperlipidemia, unspecified; E11.9 Type 2 diabetes mellitus without complications
CPT/HCPCS: 93010; 99213

== ENCOUNTER → 2022-11-18 09:00 | Outpatient (BNV) | payer OTHER, SELFPAY | PROVIDERS: PCP Internal Medicine; Visit Provider Radiology Diagnostic Radiology | DX: Z12.31 Encounter for screening mammogram for malignant neoplasm of breast (principal) | CPT/HCPCS: 77063; 77067; 77080 ==

== ENCOUNTER 2022-11-18 09:12 | Outpatient (REF) | payer OTHER, SELFPAY ==
--- NOTE | ~2022-11-18 | MM_ITS ---
EXAMINATION: MM SCREENING DIGITAL BREAST TOMOSYNTHESIS, BILATERAL CLINICAL INFORMATION: Screening. Asymptomatic. COMPARISON: Mammography: This study is compared with prior exams dating back to 2017. TECHNIQUE: Digital breast tomosynthesis is performed in both the craniocaudal and mediolateral oblique views along with computer-aided detection (CAD). Synthesized 2D images are generated from the tomosynthesis. FINDINGS: The breasts are almost entirely fatty (ACR BI-RADS breast composition Category a). There are no significant masses, abnormal calcifications, or other abnormalities. MM/MM tomosynthesis screening BI IMPRESSION: No mammographic evidence of malignancy. ASSESSMENT: BI-RADS BI-RADS 1 - Negative RECOMMENDATION: Routine annual mammography screening. 1 year F/U This examination should not preclude the clinical evaluation of a suspicious palpable abnormality. This patient's information was entered into a reminder system with a target due date for their next mammogram.
--- NOTE | ~2022-11-18 | MM_ITS ---
EXAMINATION: BONE DENSITOMETRY CLINICAL INDICATION: Unspecified menopausal and perimenopausal disorder. COMPARISON: This is the patient's baseline examination. TECHNIQUE: Using a [employer] DXA System (software version: 13.1) manufactured by [employer], dual-energy x-ray absorptiometry was performed of the lumbar spine and left hip. The images are of good technical quality. Summary results are attached. FINDINGS: LEFT FEMUR, NECK: BMD 0.799 g/cm2, Z-score -1.4, T-score -1.7, osteopenia. LEFT FEMUR, TOTAL: BMD 0.963 g/cm2, Z-score -0.5, T-score -0.4, normal. AP SPINE L1-L4: BMD 1.142 g/cm2, Z-score -0.6, T-score -0.3, normal. IDENTIFIED RISK FACTORS: Early menopause, secondary osteoporosis, hysterectomy, recurrent falls, osteoporosis. HISTORY OF FRACTURE: None listed. MEDICATIONS: Vitamin D. MM/XR DEXA axial skeleton IMPRESSION: 1. DIAGNOSIS: Osteopenia based on the lowest T-score value of -1.7 in the femoral neck applying World Health Organization criteria. 2. 10-YEAR FRACTURE RISK PREDICTION, FRAX: Major osteoporotic fracture (clinical spine, forearm, hip or shoulder) 3.7%. Hip fracture 0.3%. 3. Treatment Recommendations: NOF guidelines recommend consideration for treatment in postmenopausal women and men age 50 and older presenting with the following: -A hip or vertebral (clinical or morphometric) fracture. -T-score less than or equal to -2.5 at the femoral neck or spine after appropriate evaluation to exclude secondary causes. -Low bone mass at the hip or spine and a 10-year fracture probability by FRAX of greater than or equal to 3% for hip fracture or greater than or equal to 20% for major osteoporotic fracture based on the [place] adapted WHO algorithm. 4. Other Recommendations: All treatment decisions require clinical judgment and consideration of individual patient factors, including patient preferences, comorbidities, previous drug use, risk factors not captured in the FRAX model (e.g. frailty, falls, vitamin D deficiency, increased bone turnover, interval significant decline in bone density) and possible under or overestimation of fracture risk by FRAX. Additional medical evaluation for secondary cause of low bone mineral density may be appropriate. FUTURE SCAN RECOMMENDATION: People with diagnosed cases of osteoporosis or at high risk for fracture should have regular bone mineral density tests. For patients eligible for Medicare, routine testing is allowed once every 2 years. The testing frequency can be increased to one year for patients who have rapidly progressing disease, those who are receiving or discontinuing medical therapy to restore bone mass, or have additional risk factors.
== END 2022-11-18 09:13 | disposition home or self-care (01) ==
LOC: HO.MAMMO 09:12
PROVIDERS: PCP Internal Medicine; Visit Provider Internal Medicine
DX: Z12.31 Encounter for screening mammogram for malignant neoplasm of breast (principal); Z13.820 Encounter for screening for osteoporosis; M89.8X9 Other specified disorders of bone, unspecified site; Z78.0 Asymptomatic menopausal state
CPT/HCPCS: 77063; 77067; 77080

== ENCOUNTER 2022-12-07 08:37 | Outpatient (REF) | payer OTHER, SELFPAY | END 2022-12-07 08:38 | disposition home or self-care (01) | LOC: HO.MDS 08:37 | PROVIDERS: Visit Provider Internal Medicine Pulmonary Disease | DX: J45.50 Severe persistent asthma, uncomplicated (principal) | CPT/HCPCS: 96372 ==

== ENCOUNTER 2023-01-04 08:52 | Outpatient (REF) | payer OTHER, SELFPAY | END 2023-01-04 08:53 | disposition home or self-care (01) | LOC: HO.MDS 08:52 | PROVIDERS: Visit Provider Internal Medicine Pulmonary Disease | DX: J45.50 Severe persistent asthma, uncomplicated (principal) | CPT/HCPCS: 96372 ==

== ENCOUNTER 2023-02-01 08:47 | Outpatient (REF) | payer OTHER, SELFPAY | END 2023-02-01 08:48 | disposition home or self-care (01) | LOC: HO.MDS 08:47 | PROVIDERS: Visit Provider Internal Medicine Pulmonary Disease | DX: J45.50 Severe persistent asthma, uncomplicated (principal) | CPT/HCPCS: 96372; J2357 ==

== ENCOUNTER 2023-02-15 08:27 | Outpatient (AMB) | payer OTHER, SELFPAY ==
[2023-02-15 08:41] VITALS: BP 140/86; PULSE 96; O2SAT 97; BMI 33.4
--- NOTE | 2023-02-15 08:41 | MHC.PC.OV ---
Vital Signs 02/15/23 08:41 Height 5 ft 7 in Weight 213 lb 4 oz BMI 33.4 BP 140/86 H Blood Pressure Location Lt brachial Position Sitting Pulse 96 Pulse Source Pulse Oximeter Pulse Oximetry (%) 97 Oxygen Delivery Method Room Air Intake Visit Reasons: 4 month f/u Epoxy Fabrication Supervisor Required: No Epoxy Fabrication Supervisor Name: [id number] Information Interpreted: non-clinical & clinical Accompanied by: Self / Same As Patient Allergies bee pollen [BEE STINGS] Allergy (Intermediate, Verified 02/15/23 08:52) RASH SWELLING PAIN FULL. phentermine Allergy (Intermediate, Verified 02/15/23 08:52) ANXIETY tramadol Allergy (Intermediate, Verified 02/15/23 08:52) stomach upset adhesive tape [ADHESIVE TAPE] Allergy (Mild, Verified 02/15/23 08:52) RASH oxycodone [OXYCODONE] Adverse Reaction (Intermediate, Verified 02/15/23 08:52) VOMITING Medication List - Last Reconciled 02/15/23 by GLORIA Dhaliwal albuterol sulfate 90 mcg/actuation (ProAir HFA) 2 puffs inhalation Q6H PRN 30 days bisacodyl 5 mg PO BEDTIME 90 days blood sugar diagnostic ([employer] Ultra Test strips) Use 1 test strip once a day blood-glucose meter ([employer] Ultra2 Meter) As directed cholecalciferol (vitamin D3) 25 mcg PO DAILY dulaglutide (Trulicity) 1.5 mg (0.5 mL) subcut TH epinephrine (EpiPen 2-Larry) 0.3 mg (0.3 mL) IM Q4H PRN esomeprazole magnesium 40 mg PO DAILY fenofibrate 54 mg PO DAILY fluticasone propion-salmeterol 115-21 mcg/actuation (Advair HFA) 2 puffs PO Q4-6H furosemide 40 mg PO DAILY ipratropium bromide 2 sprays intranasal TID-QID PRN 30 days lancets ([employer] UltraSoft 2 Lancet) Use 1 lancet once a day loratadine 10 mg PO DAILY lorazepam 1 mg PO TID PRN meclizine 25 mg PO Q6H PRN meloxicam 15 mg PO DAILY PRN 90 days metformin 850 mg PO BID 90 days nebulizers (Aeroneb Go Nebulizer) As directed omalizumab (Xolair) 300 mg subcut Q4W omalizumab (Xolair) 300 mg (2 mL) subcut Q4W 28 days omeprazole 20 mg PO DAILY ondansetron 4 mg PO Q8H PRN paroxetine HCl 1 tab PO DAILY paroxetine HCl 10 mg PO QAM psyllium husk (Metamucil) 1 tbsp PO BID rosuvastatin 20 mg PO BEDTIME 90 days zolpidem 10 mg PO BEDTIME PRN Tobacco use date assessed: 06/16/22 Dental Screening Dental Screen Date: 02/15/23 Did you have a dental visit in the last 12 months?: Yes Did you have a dental problem in the last 6 months where you did not have access to dental care?: No Was dental information given to patient?: Patient has dentist HPI HPI Comments History of Present Illness Details 57-year-old female past medical history significant for depression, anxiety, insomnia, GERD, asthma, migraines, hypertension, hyperlipidemia, diabetes mellitus and SVT. Patient of presents today for follow-up visit. LAst A1c 6.6%, Reapeat labs ordered. Pateint state max zhong is flaring up as she is under alot of stress. Follows with dermatology for this on Xolair injections. REquesting refill on zofran for nausea, rx sent. Repeat fasting labs ordered. [facility] Medical History Abscess Benign paroxysmal positional vertigo Depression with anxiety Diabetes mellitus Essential hypertension GERD (gastroesophageal reflux disease) Hand numbness Herpes simplex type 2 infection Hospital discharge follow-up Hx of acute myeloid leukemia in remission Impaired glucose tolerance Insomnia Left knee pain Left leg pain Migraines Mild persistent asthma Mild recurrent major depression Mixed hyperlipidemia Nausea Supraventricular tachycardia Surgical History History of esophagogastroduodenoscopy (EGD) Hx of colonoscopy History of removal of cyst History of surgery History of total abdominal hysterectomy History of cardiac radiofrequency ablation Family History Father Brain cancer Mother Esophageal cancer Sister Breast cancer Paternal Uncle Diabetes Hypertension Social History Household Members: Children Housing: House Do you presently have visiting nurse or other home services: Yes Alcohol intake: never Patient Tobacco Use Status: Never used Tobacco e-Cigarette/Vaping Use: Never Used Second Hand Smoke Exposure: No service: No Current occupational status: unemployed Sexual orientation: Straight/Heterosexual Gender identity: Female Cognitive needs: No Hearing needs: No Vision needs: No Questionnaire Thrive Questionnaire Date Thrive assessed: 06/16/22 DICKSON-7 AMB Questionnaire DICKSON-7 Date DICKSON - 7 assessed: 06/16/22 Source: Developed by Drs. Tez Bowen, Bree Perez, Cesar Gonzalez and colleagues, with an educational alexia from [employer]. Review of Systems Const Denies chills, Denies fatigue, Denies fever(s) and Denies poor appetite Eyes Denies no additional complaints ENT Reports Normal hearing present Card Denies chest pain, Denies syncope, Denies rapid heart rate and Denies dyspnea Resp Denies cough and Denies dyspnea GI Denies change in stool character, Denies constipation, Denies diarrhea, Denies nausea and Denies vomiting Denies urinary frequency, Denies dysuria and Denies urinary urgency Neuro Reports Normal hearing present, Denies confusion and Denies syncope Psych Denies confusion Endo Denies fatigue Physical exam (Primary Care) Vital Signs: Oxygen Delivery Method Room Air 02/15/23 08:41 BMI result Body Mass Index 33.4 Tobacco/Smoking Status: Tobacco use Status Tobacco use date assessed 06/16/22 02/15/23 08:42 Patient Tobacco Use Status Never used Tobacco 02/15/23 08:42 e-Cigarette/Vaping Use Never Used 02/15/23 08:42 Thrive Assessment: Date of Thrive Assessment Date Thrive assessed 06/16/22 02/15/23 08:42 Const General: No confusion Orientation/consciousness: No confusion HENMT Head: Yes normocephalic and Yes atraumatic Eyes Conjunctivae: conjunctivae normal Chest Chest palpation & inspection: normal inspection of the chest Resp Effort & Inspection: normal respiratory effort Auscultation: clear to auscultation bilaterally, no crackles, no rhonchi and no wheezes Cardio Rate: regular rate Rhythm: regular rhythm Heart sounds: S1 normal heart sound present and S2 normal heart sound present GI Inspection: Yes normal to inspection Neuro General: No confusion Cranial nerves: Yes Normal hearing present Extrem General: No edema Assessment and Plan Assessment & Plan (1) Diabetes mellitus: Code(s): E11.9 - Type 2 diabetes mellitus without complications Plan: Cotninue on trulicity, metformin. HGB A1c ordered. Patient educated to decrease the amount of carbohydrate intake such as pasta, bread, rice and potatoes are all sugar in addition to the sweet stuff. Remember that fruits are good but they also have sugar. Goal 6.5% (2) Hyperlipidemia LDL goal <70: Code(s): E78.5 - Hyperlipidemia, unspecified Plan: Continue on rosuvastatin. Avoid fried foods, chicken skin, eggs, butter,margarine, pastries and?? red meat. (3) Nausea: Code(s): R11.0 - Nausea Plan: zofran refill sent to patients pharmacy. Plan Follow up in 4 months. Orders: Orders Lipid Panel Today E78.5 - Hyperlipidemia, unspecified Hemoglobin A1c Today E11.9 - Type 2 diabetes mellitus without complications Comprehensive [place]. Panel Fast Today E11.9 - Type 2 diabetes mellitus without complications Medications: Refilled ondansetron 4 mg PO Q8H PRN 20 tabs 0RF nausea and vomiting E78.5 - Hyperlipidemia, unspecified Coding Level of Care Code Est Pt Level 4 (68695) Diagnoses Diabetes mellitus E11.9 Hyperlipidemia LDL goal <70 E78.5 Nausea R11.0
== END 2023-02-15 09:02 | disposition home or self-care (01) ==
PROVIDERS: PCP Internal Medicine; Visit Provider Nurse Practitioner Family
DX: E11.9 Type 2 diabetes mellitus without complications (principal); E78.5 Hyperlipidemia, unspecified; R11.0 Nausea
CPT/HCPCS: 99214

== ENCOUNTER 2023-03-01 08:36 | Outpatient (REF) | payer OTHER, SELFPAY | END 2023-03-01 08:37 | disposition home or self-care (01) | LOC: HO.MDS 08:36 | PROVIDERS: Visit Provider Internal Medicine Pulmonary Disease | DX: J45.50 Severe persistent asthma, uncomplicated (principal) | CPT/HCPCS: 96372; J2357 ==

== ENCOUNTER 2023-03-10 08:26 | Observation (INO) | payer OTHER, SELFPAY ==
[2023-03-10 08:40] VITALS: BP 154/97; PULSE 93; RESP 18; TEMP 36.2; O2SAT 97; BMI 34.0
[2023-03-10 11:13] VITALS: BP 151/95; PULSE 80; RESP 18; TEMP 36.1; O2SAT 100
[2023-03-10 11:47] LABS: Alanine Aminotransferase 19 U/L (0-31); Albumin Level 4.3 g/dL (3.5-5.0); Alkaline Phosphatase 79 U/L (39-117); Anion Gap 13 (12-20); Aspartate Amino Transferase 20 U/L (5-31); Bilirubin Total 0.7 mg/dL (0.0-1.0); Blood Urea Nitrogen 10 mg/dL (9-16); Calcium 10.2 mg/dL (8.4-10.2); Carbon Dioxide 28 mmol/L (22-29); Chloride 104 mmol/L (96-108); Creatinine Clr Calc Pharmacy 108.1; Estimated Glomerular Filt Rate > 60; Glucose Random 100 mg/dL (60-115); Potassium 4.3 mmol/L (3.3-5.1); Sodium 141 mmol/L (135-145); Total Protein 7.1 g/dL (6.5-8.0)
[2023-03-10 11:55] VITALS: BP 189/146; PULSE 85; RESP 18; TEMP 36.7; O2SAT 98
--- NOTE | 2023-03-10 11:59 | ED.NEUROSD ---
HPI - Neuro Symptoms/Deficit General Chief Complaint: Neuro Symptoms/Deficit Stated Complaint: Numbness left side of body Time Seen by Provider: 03/10/23 13:07 Source: patient, family and old records reviewed Mode of arrival: ambulatory Limitations: no limitations History of Present Illness HPI Narrative: 57 yo female with PMH of esophagitis, HLD, HTN, asthma, depression/anxiety, arthralgia here with c/o compliant with medications who reports yesterday at 830am she notes she woke up with numbness on L side and felt weird. She noted difficulty walking and that the L side of her body felt off. She has never had a stroke before. She takes no thinners or aspirin. She notes this happened in the past several months ago but it resolved so she thought she could ignore it. Onset (ago): hour(s) (830am yesterday) Timing confirmed by: other (self) Location: left arm and left leg History of same: Yes Severity: moderate Quality: weak and numb Relieving factors: none Exacerbating factors: none Context: sudden onset On Anticoagulants: No Associated symptoms: chest pain Treatments Prior to Arrival: none Related Data Home Medications ?Medication ?Instructions ?Recorded ?Confirmed lorazepam 1 mg tablet 1 mg PO TID PRN Anxiety 02/13/20 11/18/23 zolpidem 10 mg tablet 10 mg PO BEDTIME PRN Insomnia 02/13/20 11/18/23 fluticasone propionate 115 2 puff PO BID 05/06/21 11/18/23 mcg-salmeterol 21 mcg/actuation HFA inhaler (Advair HFA) loratadine 10 mg tablet 10 mg PO DAILY PRN Allergy Symptoms 08/09/22 11/18/23 paroxetine HCl 10 mg tablet 10 mg PO QAM 08/09/22 11/18/23 triamcinolone acetonide 0.1 % topical 06/20/23 11/18/23 topical ointment paroxetine HCl 40 mg tablet 20 mg PO DAILY 06/30/23 11/18/23 Previous Rx's ?Medication ?Instructions ?Recorded nebulizers (Aeroneb Go Nebulizer) #1 ea 02/05/21 meclizine 25 mg tablet 25 mg PO Q6H PRN Vertigo #30 tabs 05/16/22 ipratropium bromide 42 mcg (0.06 2 spray intranasal TID-QID PRN 07/09/22 %) nasal spray allergy symptoms 30 days #15 mL blood sugar diagnostic (OneTouch #100 ea 12/23/22 Ultra Test strips) blood-glucose meter (OneTouch #1 ea 12/23/22 Ultra2 Meter) lancets 30 gauge (OneTouch #100 ea 12/23/22 UltraSoft 2 Lancet) omeprazole 20 mg capsule,delayed 20 mg PO DAILY #90 caps 04/04/23 release ondansetron 4 mg disintegrating 4 mg PO Q8H PRN nausea and 04/22/23 tablet vomiting #10 tabs omalizumab 150 mg subcutaneous 300 mg subcut Q4W 28 days #1 ea 06/16/23 solution (Xolair) metformin 850 mg tablet 850 mg PO DAILY #180 tabs 07/01/23 benzonatate 100 mg capsule 100 mg PO BID PRN cough 5 days #10 08/05/23 caps fenofibrate 54 mg tablet 54 mg PO DAILY #90 tabs 09/29/23 rosuvastatin 20 mg tablet 20 mg PO BEDTIME 90 days #90 tabs 09/29/23 bisacodyl 5 mg tablet,delayed 5 mg PO DAILY 30 days #30 tabs 10/10/23 release (Dulcolax (bisacodyl)) dulaglutide 1.5 mg/0.5 mL 1.5 mg (0.5 mL) subcut TH #2 mL 10/10/23 subcutaneous pen injector (Trulicity) empagliflozin 10 mg tablet 10 mg PO DAILY 90 days #90 tabs 10/10/23 (Jardiance) polyethylene glycol 3350 17 17 g PO DAILY #510 grams 10/10/23 gram/dose oral powder (Miralax) metoprolol succinate 50 mg 50 mg PO DAILY #90 tabs 11/18/23 tablet,extended release 24 hr Allergies Allergy/AdvReac Type Severity Reaction Status Date / Time bee pollen [BEE STINGS] Allergy Intermediate RASH Verified 10/10/23 08:05 SWELLING PAIN FULL. phentermine Allergy Intermediate ANXIETY Verified 10/10/23 08:05 tramadol Allergy Intermediate stomach Verified 10/10/23 08:05 upset adhesive tape [ADHESIVE TAPE] Allergy Mild RASH Verified 10/10/23 08:05 oxycodone [OXYCODONE] AdvReac Intermediate VOMITING Verified 10/10/23 08:05 apremilast [From Otezla] AdvReac diarrhea, Verified 10/10/23 08:05 nausea Review of Systems Review of Systems: Constitutional : No Fever, No Chills, No Fatigue ENT/Mouth : No sore throat, No Rhinorrhea Eyes: No Eye Pain, No Swelling, No Redness Cardiovascular : pos Chest Pain, No SOB, No Dyspnea on Exertion Respiratory : No Cough, No Sputum Gastrointestinal : No Nausea, No Vomiting, No Diarrhea, No abdominal Pain Genitourinary : No Dysuria, No Urinary Frequency, No Hematuria, Musculoskeletal : No joint pain, No Myalgias, No Joint Swelling Skin : No Skin Lesions, No rash Neuro : pos Weakness, pos Numbness, No Dizziness, no Headache Psych : No Anxiety/Panic, No Depression Heme/Lymph: No Bruising, No Bleeding,No Lymphadenopathy Endocrine : No Polyuria, No Polydipsia All other systems reviewed and are negative PMFSH Past Medical History Source: old records reviewed Onset Date is defined in the Problem List Problems that require an onset date and time if occurred within 24 hrs of arrival to the ED Aortic Dissection and Rupture; Neurologic impairment; Cardiopulmonary Arrest; Endotracheal Intubation; Insertion or Replacement of Mechanical Circulatory Assist Device Medical History Hx of acute myeloid leukemia in remission Benign paroxysmal positional vertigo Hospital discharge follow-up Abscess Essential hypertension Diabetes mellitus Migraines Hand numbness Mild persistent asthma Impaired glucose tolerance Mild recurrent major depression Herpes simplex type 2 infection Mixed hyperlipidemia Supraventricular tachycardia Left leg pain GERD (gastroesophageal reflux disease) Insomnia Left knee pain Nausea Depression with anxiety Surgical History History of esophagogastroduodenoscopy (EGD) Hx of colonoscopy History of removal of cyst History of surgery History of total abdominal hysterectomy History of cardiac radiofrequency ablation Family History Family History Father Brain cancer Mother Esophageal cancer Sister Breast cancer Paternal Uncle Diabetes Hypertension Sister Colon cancer, Onset Age: 63 Social History Social History Household Members: Children Housing: House Do you presently have visiting nurse or other home services: Yes Alcohol intake: never Patient Tobacco Use Status: Never used Tobacco e-Cigarette/Vaping Use: Never Used Second Hand Smoke Exposure: No Advance Directives Date on File: 03/11/23 service: No Current occupational status: unemployed Sexual orientation: Straight/Heterosexual Gender identity: Female Cognitive needs: No Hearing needs: No Vision needs: No Physical Exam Vital Signs: Vital Signs: Last Vital Signs Temp 97.6 F 03/11/23 11:30 Pulse 92 03/11/23 12:38 Resp 13 03/11/23 12:38 BP 112/79 03/11/23 12:38 Pulse Ox 95 03/11/23 12:38 O2 Del Method Room Air 03/11/23 12:38 BMI result Body Mass Index 34.0 Appearance: Alert. Oriented X3. No acute distress. Eyes: Pupils equal, round and reactive to light. ENT: Pharynx normal. Neck: Normal inspection. Neck supple. CVS: Normal heart rate and rhythm. Pulses normal. Respiratory: No respiratory distress. Breath sounds normal. Abdomen: Soft and nontender. Skin: Skin warm and dry. Normal skin color. Normal skin turgor. Extremities: No lower extremity edema. No calf ttp Neuro: Oriented X 3. no facial droop, mild L sided weakness 4+/5 on L side, no visual loss, sensory loss midline L side. Course Course Course Narrative: RME: 57-YEAR-OLD FEMALE WAS READ TRIAGED AT 11:59AM. STILL HAVING SYMPTOMS OF NUMBNESS WITH LEFT-SIDED WEAKNESS. PHYSICAL EXAM SIGNIFICANT FOR LEFT ARM AND LEFT LEG WEAKNESS. NEGATIVE FOR FACIAL DROOP OR SLURRED SPEECH. PATIENT HYPERTENSIVE. PATIENT HISTORY OF VERTIGO AND HIGH BLOOD PRESSURE AND MIGRINAE. PATIENT BROUGHT TO BED [address] AND HEAD CTA SCAN. DR. Rojas WITH PLAN. PATIENT DENIES EVER HAVING HEADACHE SINCE HAVING SYMPTOMS. Medications Administered Discontinued Medications Generic Name Dose Route Start Last Admin Trade Name Freq PRN Reason Stop Dose Admin Acetaminophen 650 mg 03/10/23 15:46 03/11/23 12:10 Acetaminophen 325 Mg Tablet PO 650 mg Q6H PRN Administration Pain, Mild (Pain Scale 1-3) Aspirin 325 mg 03/10/23 13:46 03/10/23 15:31 Aspirin 325 Mg Tablet PO 03/10/23 13:47 325 mg ONCE ONE Administration Aspirin 81 mg 03/11/23 09:00 03/11/23 12:10 Aspirin Enteric Coated 81 Mg Tablet. PO 81 mg DAILY REPLACED BY [facility] Administration Atorvastatin Calcium 80 mg 03/10/23 21:00 03/10/23 20:57 Atorvastatin Calcium 80 Mg Tablet PO 80 mg BEDTIME REPLACED BY [facility] Administration Enoxaparin Sodium 40 mg 03/10/23 16:00 03/11/23 02:06 Enoxaparin Sodium 40 Mg/0.4 Ml Syringe SUBCUT Not Given Q24H REPLACED BY [facility] Enoxaparin Sodium 40 mg 03/11/23 02:30 03/11/23 02:39 Enoxaparin Sodium 40 Mg/0.4 Ml Syringe SUBCUT 40 mg DAILY@0600 REPLACED BY [facility] Administration Fenofibrate 54 mg 03/11/23 09:00 03/11/23 12:41 Fenofibrate 54 Mg Tablet PO 54 mg DAILY REPLACED BY [facility] Administration Fluticasone/Vilanterol 1 puff 03/11/23 08:00 03/11/23 07:57 Fluticasone/Vilanterol 100/25 Blst.W.Dev INHALE 1 puff RDAILY REPLACED BY [facility] Administration Insulin Human Lispro 0 unit 03/10/23 16:30 03/11/23 12:18 Insulin Lispro 100 Unit/Ml 3 Ml Vial SUBCUT Not Given QIDACHS REPLACED BY [facility] Protocol Omeprazole 20 mg 03/11/23 06:30 03/11/23 06:51 Omeprazole 20 Mg Capsule. PO 20 mg DAILY@0630 REPLACED BY [facility] Administration Paroxetine HCl 40 mg 03/11/23 09:00 03/11/23 12:10 Paroxetine Hcl 40 Mg Tablet PO 40 mg DAILY REPLACED BY [facility] Administration Paroxetine HCl 10 mg 03/11/23 09:00 03/11/23 12:56 Paroxetine Hcl 10 Mg Tablet PO 10 mg DAILY REPLACED BY [facility] Administration Sodium Chloride 3 ml 03/10/23 16:00 03/11/23 08:29 0.9 % Sodium Chloride Flush 3 Ml Syringe IVFLUSH Not Given QSHIFT REPLACED BY [facility] Vitamin D 25 mcg 03/11/23 09:00 03/11/23 12:10 Cholecalciferol (Vitamin D3) 25 Mcg Tablet PO 25 mcg DAILY JUDITH Administration Medical Decision Making Medical Decision Making MDM Narrative: 57 yo female with PMH of esophagitis, HLD, HTN, asthma, depression/anxiety, arthralgia here with c/o L sided weakness and numbness starting 830am yesterday that goes from face down L arm and leg. She has bounding pulses. She has mild L sided weakness as well. At this time stroke protocol from triage with CT head/CTA done. She is not a candidate for TNK given onset > 24 hours ago and not a thrombectomy candidate. Likely HTNive related CVA - her pain is atypical in chest no hypoxia doubt VTE no signs of DVT, has boudning distal pusles doubt dissection pain present > 6 hours one troponin ordered Differential Diagnosis Differential Diagnoses: The differential diagnosis associated with the presentation includes TIA, CVA, HTN Admission/Observation Consideration of admission/observation: Escalation of care including admission/observation considered admit for stroke workup Consult Healthcare Provider Management of the patient was discussed with: Hospitalist (will admit) Lab Data MDM Lab Attestation statement: I reviewed the patient's lab results. 03/10/23 11:19 03/10/23 11:19 Labs: Lab Results 03/10/23 03/10/23 Range/Units 11:15 11:19 WBC 7.6 (4.8-10.8) X10*3/uL RBC 4.75 (4.20-5.50) X10*6/uL Hgb 13.9 (12.0-16.0) g/dl Hct 41.5 (37.0-47.0) % MCV 87.4 (80.0-98.0) fL MCH 29.3 (27.0-33.0) pg MCHC 33.5 (31.0-35.0) g/dl RDW 14.3 (11.0-16.0) % Plt Count 249 (160-400) X10*3/uL MPV 8.8 L (9.4-12.3) fL Immature Gran % (Auto) 0.4 (0.0-0.4) % Neut % (Auto) 60.0 (45-73) % Lymph % (Auto) 28.7 (20-40) % [place] % (Auto) 6.7 (2-11) % Eos % (Auto) 3.4 (0-4) % Baso % (Auto) 0.8 (0-2) % Lymph # (Auto) 2.2 (1.2-4.9) X10*3/uL [place] # (Auto) 0.5 (0.1-1.2) X10*3/uL Eos # (Auto) 0.3 (0.0-0.4) X10*3/uL Baso # (Auto) 0.1 (0.0-0.2) X10*3/uL Abs Immat Gran (auto) 0.03 (0.00-0.03) X10*3/uL Absolute Neuts (auto) 4.6 (2.0-8.3) x10*3/uL Absolute Nucleated RBC 0.000 (0.0-0.012) X10*3/uL Nucleated RBC % (auto) 0.0 (0.0-0.2) /100WBC Sodium 141 (135-145) mmol/L Potassium 4.3 (3.3-5.1) mmol/L Chloride 104 (96-108) mmol/L Carbon Dioxide 28 (22-29) mmol/L Anion Gap 13 (12-20) BUN 10 (9-16) mg/dL Creatinine 0.70 (0.5-1.4) mg/dL Estim Creat Clear Calc 108.1 Estimated GFR > 60 Random Glucose 100 (60-115) mg/dL Estimat Average Glucose 137 mg/dL Hemoglobin A1c % 6.4 H (<6.0) % Calcium 10.2 (8.4-10.2) mg/dL Magnesium 1.6 (1.6-2.6) mg/dL Total Bilirubin 0.7 (0.0-1.0) mg/dL AST 20 (5-31) U/L ALT 19 (0-31) U/L Alkaline Phosphatase 79 (39-117) U/L Total Creatine Kinase 66 (26-140) U/L Troponin I High Sens < 2.7 (<3.5-17.0) ng/L Total Protein 7.1 (6.5-8.0) g/dL Albumin 4.3 (3.5-5.0) g/dL Triglycerides 235 H (<150) mg/dL Cholesterol 180 (<200) mg/dL LDL Cholesterol, Calc 83 (<100) mg/dL HDL Cholesterol 50 (>40) mg/dL Beta HCG, Quant 4 mIU/mL COVID-19 (MARY) Negative (Negative) COVID-19 Clin Com See Note Influenza Type A (OLIVIA) Negative (Negative) Influenza Type B (OLIVIA) Negative (Negative) Influenza A & B Note See Note Independent Interpretation I performed an independent interpretation of an: EKG and CT Scan (no ICH) Interpretation: Rate: 85 Rhythm: NSR [place]: left Normal P waves. Normal JOSE ENRIQUE. Normal QRS complex. ST T wave : normal no MARY qTC: normal prior studies: no acute ischemia The study has been interpreted contemporaneously by me. . Radiology Impression Discussion of test interpretation with radiology: I discussed test interpretation with the radiologist and I have reviewed the radiologist's reading. External Record Review External record reviewed: Inpatient record NIH Stroke Scale Internal: Initial- Upon Arrival Time: 13:00 Level of Consciousness: Alert Level of Consciousness Questions: Answers both questions correctly Level of Consciousness Commands: Performs both tasks correctly Best Gaze: Normal Visual: No visual loss Facial Palsy: Normal Motor Arm (Right): No drift Motor Arm (Left): Drift Motor Leg (Right): No drift Motor Leg (Left): Drift Limb Ataxia: Absent Sensory: Mild to moderate sensory loss Best Language: No aphasia Dysarthia: Normal Extinction and Inattention: No abnormality Score: 3 Critical Care Time Critical Care Time Critical Care Time: Yes Total Critical Care Time: 45 Attestation: stroke protocol work up, admit for stroke workup. I attest to this time spent taking care of the patient Discharge Plan Discharge Clinical Impression: Weakness, Tingling, Atypical chest pain Patient Disposition: Admitted As Inpatient Interventions: ED Discharge Assessment Last Done: 03/11/23 13:19 Discharge Date/Time: 03/11/23 13:19
[2023-03-10 12:57] LABS: HCG Quantitative 4 mIU/mL; Magnesium 1.6 mg/dL (1.6-2.6)
[2023-03-10 13:50] VITALS: BP 161/92
--- NOTE | 2023-03-10 15:35 | PHA.MEDREC ---
Pharmacy Consult ? Medication Reconciliation Pharmacy has completed the medication reconciliation. Patient forgot list at home. Patient able to confirm medications based on claim history. Patient reported no longer taking lasix. Patient also report that she was told to only take metformin once a day instead of BID. Nichelle Brown, PharmD
--- NOTE | 2023-03-10 15:50 | PM.IMHP ---
History of Present Illness Date of Service: 03/10/23 Attending physician on admission: Masood Squires Chief Complaint: left side tingling this is a 57-year-old Bangladeshi-speaking female who presents to the emergency department today with complaints of left-sided numbness and tingling. She states that she woke up yesterday with left facial numbness and also noted at that time that she had numbness and tingling of her left arm and left leg. Her symptoms have persisted so today she came to the emergency department for evaluation. she denies any associated dysphagia, she reports chronic dizziness and gait disturbance. She denies any associated headache. In the emergency department brain CT and CTA were unremarkable. Symptoms have stayed the same since onset. She reports a few other recent episodes with similar symptoms. She will be admitted for observation and stroke work up. Review of Systems Review of Systems: Yes all other systems are reviewed and are negative Constitutional: Constitutional: Denies chills and Denies fever(s) Cardiovascular: Cardiovascular: Denies chest pain, Denies palpitations and Denies dyspnea Respiratory: Respiratory: Denies cough and Denies dyspnea Gastrointestinal: Gastrointestinal: Denies abdominal pain Endocrine: Endocrine: Denies palpitations [facility] Medical History Hx of acute myeloid leukemia in remission Benign paroxysmal positional vertigo Hospital discharge follow-up Abscess Essential hypertension Diabetes mellitus Migraines Hand numbness Mild persistent asthma Impaired glucose tolerance Mild recurrent major depression Herpes simplex type 2 infection Mixed hyperlipidemia Supraventricular tachycardia Left leg pain GERD (gastroesophageal reflux disease) Insomnia Left knee pain Nausea Depression with anxiety Family History Father Brain cancer Mother Esophageal cancer Sister Breast cancer Paternal Uncle Diabetes Hypertension Surgical History History of esophagogastroduodenoscopy (EGD) Hx of colonoscopy History of removal of cyst History of surgery History of total abdominal hysterectomy History of cardiac radiofrequency ablation Social History Household Members: Children Housing: House Do you presently have visiting nurse or other home services: Yes Alcohol intake: never Patient Tobacco Use Status: Never used Tobacco Smoked in Last 30 Days: No e-Cigarette/Vaping Use: Never Used Second Hand Smoke Exposure: No Advance Directives: No Advance Directives Information Provided: Yes service: No Current occupational status: unemployed Sexual orientation: Straight/Heterosexual Gender identity: Female Cognitive needs: No Hearing needs: No Vision needs: No Meds Allergies Allergy/AdvReac Type Severity Reaction Status Date / Time bee pollen [BEE STINGS] Allergy Intermediate RASH Verified 02/15/23 08:52 SWELLING PAIN FULL. phentermine Allergy Intermediate ANXIETY Verified 02/15/23 08:52 tramadol Allergy Intermediate stomach Verified 02/15/23 08:52 upset adhesive tape [ADHESIVE TAPE] Allergy Mild RASH Verified 02/15/23 08:52 oxycodone [OXYCODONE] AdvReac Intermediate VOMITING Verified 02/15/23 08:52 Home Medications Medication Instructions Recorded Confirmed Last Taken Type lorazepam 1 mg tablet 1 mg PO TID PRN Anxiety 02/13/20 03/10/23 Unknown History zolpidem 10 mg tablet 10 mg PO BEDTIME PRN Insomnia 02/13/20 03/10/23 03/09/22 History fluticasone propionate 115 2 puff PO BID 05/06/21 03/10/23 03/09/22 History mcg-salmeterol 21 mcg/actuation HFA inhaler (Advair HFA) omalizumab 150 mg/mL subcutaneous 300 mg subcut Q4W 05/14/22 03/10/23 Unknown History syringe (Xolair) paroxetine HCl 40 mg tablet 1 tab PO DAILY 05/14/22 03/10/23 03/09/22 History loratadine 10 mg tablet 10 mg PO DAILY PRN Allergy Symptoms 08/09/22 03/10/23 Unknown History paroxetine HCl 10 mg tablet 10 mg PO QAM 08/09/22 03/10/23 03/09/22 History fenofibrate 54 mg tablet 54 mg PO DAILY 10/29/22 03/10/23 03/09/22 History benzonatate 200 mg capsule 200 mg PO TID PRN cough 03/10/23 03/10/23 Unknown History metformin 850 mg tablet 850 mg PO DAILY 03/10/23 03/10/23 03/09/22 History Physical Exam Vital Signs and Narrative: Vital Signs: Last Vital Signs Temp 98.1 F 03/10/23 11:55 Pulse 85 03/10/23 11:55 Resp 18 03/10/23 11:55 BP 161/92 H 03/10/23 13:50 Pulse Ox 98 03/10/23 11:55 O2 Del Method Room Air 03/10/23 11:55 BMI result Body Mass Index 34.0 Const: General: cooperative, comfortable, alert and awake Nutritional Appearance: obese Orientation/consciousness: patient oriented x3 Resp: Effort & Inspection: normal respiratory effort, able to speak in complete sentences, no respiratory distress and no use of accessory muscles Cardio: Rate: regular rate GI: Inspection: No distended Palpation (GI): Soft to palpation Neuro: Other: able to move all four extremities spontaneously; LLE strenth 4/5; hand grasp equal bilaterally. UE stregth equal bilateral, tongue midline, face symmetrical General: patient oriented x3 Results Labs 03/10/23 11:19 03/10/23 11:19 Labs: Laboratory Results - last 24 hr 03/10/23 03/10/23 11:15 11:19 MCV 87.4 MCH 29.3 MCHC 33.5 RDW 14.3 Plt Count 249 MPV 8.8 L Immature Gran % (Auto) 0.4 Neut % (Auto) 60.0 Lymph % (Auto) 28.7 [place] % (Auto) 6.7 Eos % (Auto) 3.4 Baso % (Auto) 0.8 Lymph # (Auto) 2.2 [place] # (Auto) 0.5 Eos # (Auto) 0.3 Baso # (Auto) 0.1 Abs Immat Gran (auto) 0.03 Absolute Neuts (auto) 4.6 Absolute Nucleated RBC 0.000 Nucleated RBC % (auto) 0.0 Anion Gap 13 Estim Creat Clear Calc 108.1 Estimated GFR > 60 Random Glucose 100 Calcium 10.2 Magnesium 1.6 Total Bilirubin 0.7 AST 20 ALT 19 Alkaline Phosphatase 79 Total Creatine Kinase 66 Total Protein 7.1 Albumin 4.3 Beta HCG, Quant 4 COVID-19 (MARY) Negative COVID-19 Clin Com See Note Influenza Type A (OLIVIA) Negative Influenza Type B (OLIVIA) Negative Influenza A & B Note See Note Imaging Radiologist's Impressions: Impressions Head CT 03/10/23 12:25 IMPRESSION: No acute intracranial hemorrhage or territorial loss of gutierrez-white differentiation. Results discussed with Evelyn FARMER at 12:51 on 03/10/2023 Head/Neck CTA 03/10/23 12:38 IMPRESSION: CTA NECK: No hemodynamically significant stenosis. CTA HEAD: No proximal vessel occlusion or high-grade stenosis. Laterally directed outpouching from the left cavernous internal carotid artery may represent an infundibular origin to the left inferolateral trunk. Probable infundibulum arising from the left supraclinoid internal carotid artery. Assessment and Plan (1) Weakness: Status: Acute Plan this is a 57-year-old Bangladeshi-speaking female with history of diabetes, hypertension, vertigo who presents the emergency room with left-sided facial numbness and left side tingling left side tingling brain CT, CTA with no acute stroke or high grade stenosis less likely complicated migraine as no associated headache; gait disturbance chronic will admit to telemetry for close monitoring MRI to eval for stroke neurology consult PT eval bedside eval done in ED check lipid profile -aspirin daily -continue baseline statin DM SSI, POCs ADA diet hold metformin mood continue baseline meds h/o vertigo continue prn meclizine HTN no blood pressure meds on med list bp uncontrolled, follow trend, if remains elevated will consider lisinopril dvt ppx - lovenox attending - dr. squires Quality Stroke Does the patient have a stroke diagnosis?: No VTE Prior VTE?: No VTE Risk Level:: Medical - moderate - high VTE Device Contraindication: N/A - Device Ordered VTE Drug Contraindication: N/A - Med Ordered
--- NOTE | 2023-03-10 15:57 | PC.NURSE ---
1500- PT AWAKE, ALERT AND ORIENTED X 3. ABLE TO ANSWER ALL QUESTIONS APPROPRIATELY. FOLLOWS ALL COMMANDS. PT REPORTS THAT SHE NOTICED NUMBNESS ON LEFT SIDE OF BODY STARTING YESTERDAY MORNING. SHE REPORTS THAT SHE NOTICED SYMPTOMS UPON WAKING UP. REPORTS THAT THE LEFT SIDE OF HER BODY FEELS OFF . LEFT SIDE HAND GRASP SLIGHTLY WEAKER THAN RIGHT. REPORTS NUMBNESS IN HER LEFT TOES. PT REPORTS THAT SHE HAS A HX OF HTN, DM, AND ELEVATED CHOLESTEROL AND STATES THAT SHE IS COMPLIANT IN TAKING HER MEDICATION. PT ALSO HAS A HX OF VERTIGO FOR WHICH SHE TAKES MECLIZINE. PLAN IS FOR ADMISSION TO HOSPITAL. PT AGREEABLE TO THIS PLAN. STROKE EDUCATION PROVIDED TO PATIENT. ALL QUESTIONS ANSWERED.
--- NOTE | 2023-03-10 17:40 | PC.NURSE ---
Pt currently off floor at MRI, monitors/ jewelry removed
--- NOTE | 2023-03-10 18:47 | PC.NURSE ---
Pt back from MRI, POC 78, placed back on monitor, Lovenox not given d/t being out of stock, pharm aware
[2023-03-10 20:40] VITALS: BP 139/75; PULSE 82; RESP 18; TEMP 36.5; O2SAT 96
--- NOTE | 2023-03-10 20:47 | PC.NURSE ---
IV infiltrated to L AC, removed at this time
[2023-03-10 23:48] VITALS: BP 128/89; PULSE 83; RESP 14; O2SAT 94
--- NOTE | 2023-03-11 03:14 | PC.NURSE ---
pt requested a snack, given unsweetened applesauce and a small juice. pt ate/drank w/out trouble
[2023-03-11 05:17] VITALS: BP 121/87; PULSE 88; RESP 14; TEMP 36.7; O2SAT 97
--- NOTE | 2023-03-11 05:26 | PC.NURSE ---
pt c/o bilateral leg pain, chronic. pt medicated per MAR
--- NOTE | 2023-03-11 05:34 | PC.NURSE ---
pt ambulated to the bathroom, gait even and steady
[2023-03-11 07:45] VITALS: BP 137/86; PULSE 81; RESP 11; TEMP 36.7; O2SAT 94
[2023-03-11 08:00] VITALS: PULSE 86; RESP 16; O2SAT 99
[2023-03-11 09:23] VITALS: PULSE 86
--- NOTE | 2023-03-11 10:48 | PM.DS ---
DS: Providers Provider Date of Service: 03/11/23 Date of admission: 03/10/23 15:46 Date of discharge: 03/11/23 Primary care physician: Kayy Aburto MD Consults: 03/10/23 15:48 Consult to Neurology Routine Consulting Provider: Tomy Jasso Reason for consultation: left side numbess Has provider been notified: No Attending physician on discharge: Masood King Discharging clinician: Clarice Forbes DS: Diagnosis Discharge Diagnosis (1) Weakness: Status: Acute (2) Tingling: Status: Acute DS: Summary Hospital Course Hospital Course: From the H&P on the day of admission this is a 57-year-old [place] Citizen-speaking female who presents to the emergency department today with complaints of left-sided numbness and tingling. She states that she woke up yesterday with left facial numbness and also noted at that time that she had numbness and tingling of her left arm and left leg. Her symptoms have persisted so today she came to the emergency department for evaluation. she denies any associated dysphagia, she reports chronic dizziness and gait disturbance. She denies any associated headache. In the emergency department brain CT and CTA were unremarkable. Symptoms have stayed the same since onset. She reports a few other recent episodes with similar symptoms. She will be admitted for observation and stroke work up. parasthesias to left side of face and left arm/leg brain CT, CTA with no acute stroke or high grade stenosis. MRI negative for stroke, did show some nonspecific t2 signal changes which was discussed with neurology. No further inpatient work up required, recommended outpatient follow up with neurology. LDL was 83, triglycerides 235. She was continued on high-dose statin and Lofibra. She was started on low-dose daily aspirin. She was evaluated by PT and OT who recommended outpatient physical therapy services upon discharge. She reports improvement with the left side tingling today. PT is likely not able to start until Tuesday, the patient is aware. 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 Time Attestation Discharge coordination time: Greater than 30 minutes Quality: Safe Use of Opioids Does Pt have an Active Cancer Diagnosis on the Problem List?: No Quality: Stroke Does the patient have a stroke diagnosis?: No Physical Exam Vital Signs: Vital Signs: Last Vital Signs Temp 98.1 F 03/11/23 07:45 Pulse 86 03/11/23 09:23 Resp 16 03/11/23 08:00 BP 137/86 03/11/23 07:45 Pulse Ox 94 03/11/23 07:45 O2 Del Method Room Air 03/11/23 07:45 BMI result Body Mass Index 34.0 Const: General: cooperative, comfortable, alert and awake Nutritional Appearance: obese Orientation/consciousness: patient oriented x3 Resp: Effort & Inspection: normal respiratory effort, able to speak in complete sentences, no respiratory distress and no use of accessory muscles Cardio: Rate: regular rate GI: Inspection: No distended Palpation (GI): Soft to palpation Neuro: Other: able to move all four extremities spontaneously; LLE strenth 4/5; hand grasp equal bilaterally. UE stregth equal bilateral, tongue midline, face symmetrical General: patient oriented x3 DS: Data Data Completed and Pending Labs on day of discharge: Laboratory Results - last 24 hr 03/10/23 03/10/23 03/10/23 11:15 11:19 18:42 WBC 7.6 RBC 4.75 Hgb 13.9 Hct 41.5 MCV 87.4 MCH 29.3 MCHC 33.5 RDW 14.3 Plt Count 249 MPV 8.8 L Immature Gran % (Auto) 0.4 Neut % (Auto) 60.0 Lymph % (Auto) 28.7 [place] % (Auto) 6.7 Eos % (Auto) 3.4 Baso % (Auto) 0.8 Lymph # (Auto) 2.2 [place] # (Auto) 0.5 Eos # (Auto) 0.3 Baso # (Auto) 0.1 Abs Immat Gran (auto) 0.03 Absolute Neuts (auto) 4.6 Absolute Nucleated RBC 0.000 Nucleated RBC % (auto) 0.0 Sodium 141 Potassium 4.3 Chloride 104 Carbon Dioxide 28 Anion Gap 13 BUN 10 Creatinine 0.70 Estim Creat Clear Calc 108.1 Estimated GFR > 60 POC Glucose 78 Random Glucose 100 Estimat Average Glucose 137 Hemoglobin A1c % 6.4 H Calcium 10.2 Magnesium 1.6 Total Bilirubin 0.7 AST 20 ALT 19 Alkaline Phosphatase 79 Total Creatine Kinase 66 Troponin I High Sens < 2.7 Total Protein 7.1 Albumin 4.3 Triglycerides 235 H Cholesterol 180 LDL Cholesterol, Calc 83 HDL Cholesterol 50 Beta HCG, Quant 4 COVID-19 ([facility]) Negative COVID-19 Clin Com See Note Influenza Type A (OLIVIA) Negative Influenza Type B (OLIVIA) Negative Influenza A & B Note See Note 03/10/23 03/11/23 21:02 07:48 WBC RBC Hgb Hct MCV MCH MCHC RDW Plt Count MPV Immature Gran % (Auto) Neut % (Auto) Lymph % (Auto) [place] % (Auto) Eos % (Auto) Baso % (Auto) Lymph # (Auto) [place] # (Auto) Eos # (Auto) Baso # (Auto) Abs Immat Gran (auto) Absolute Neuts (auto) Absolute Nucleated RBC Nucleated RBC % (auto) Sodium Potassium Chloride Carbon Dioxide Anion Gap BUN Creatinine Estim Creat Clear Calc Estimated GFR POC Glucose 105 110 Random Glucose Estimat Average Glucose Hemoglobin A1c % Calcium Magnesium Total Bilirubin AST ALT Alkaline Phosphatase Total Creatine Kinase Troponin I High Sens Total Protein Albumin Triglycerides Cholesterol LDL Cholesterol, Calc HDL Cholesterol Beta HCG, Quant COVID-19 ([facility]) COVID-19 Clin Com Influenza Type A ([facility]IVIA) Influenza Type B ([facility]IVIA) Influenza A & B Note Discharge Plan Discharge Anticipated Discharge Date/Time: 03/11/23 10:40 Patient Disposition: Home Health Service Discharge Diagnosis: left side tingling Referrals: Bridgette QUINTANA [Outside] - 3-5 Days Tomy Jasso MD [Physician] - 2 Weeks Kayy Escobar MD [Primary Care Provider] - 1 Week Discharge Medications: New aspirin 81 mg Tablet,Delayed Release (Dr/Ec) 81 mg PO DAILY 30 Days Qty: 30 0RF Continued albuterol sulfate [ProAir HFA] 90 mcg/actuation HFA aerosol inhaler 2 puff inhalation Q6H PRN (Reason: shortness of breath or wheezing) 30 Days Qty: 6.7 1RF omeprazole 20 mg capsule,delayed release(DR/EC) 20 mg PO DAILY Qty: 90 1RF rosuvastatin 20 mg tablet 20 mg PO BEDTIME 90 Days Qty: 90 1RF bisacodyl 5 mg tablet,delayed release (DR/EC) 5 mg PO BEDTIME 90 Days Qty: 90 0RF cholecalciferol (vitamin D3) 25 mcg (1,000 unit) capsule 25 mcg PO DAILY Qty: 90 0RF Trulicity 1.5 mg/0.5 mL pen injector 1.5 mg subcut TH Qty: 2 1RF paroxetine HCl 40 mg tablet 1 tab PO DAILY Xolair 150 mg/mL syringe 300 mg subcut Q4W meclizine 25 mg Tablet 25 mg PO Q6H PRN (Reason: Vertigo) Qty: 30 0RF benzonatate 200 mg capsule 200 mg PO TID PRN (Reason: cough) metformin 850 mg tablet 850 mg PO DAILY lorazepam 1 mg tablet 1 mg PO TID PRN (Reason: Anxiety) zolpidem 10 mg tablet 10 mg PO BEDTIME PRN (Reason: Insomnia) Advair HFA 115-21 mcg/actuation HFA aerosol inhaler 2 puff PO BID ondansetron 4 mg tablet,disintegrating 4 mg PO Q8H PRN (Reason: nausea and vomiting) Qty: 20 0RF fenofibrate 54 mg tablet 54 mg PO DAILY paroxetine HCl 10 mg tablet 10 mg PO QAM loratadine 10 mg tablet 10 mg PO DAILY PRN (Reason: Allergy Symptoms) ipratropium bromide 42 mcg (0.06 %) spray,non-aerosol 2 spray intranasal TID-QID PRN (Reason: allergy symptoms) 30 Days Qty: 15 6RF Rx Instructions: administer into each nostril Discontinued meloxicam 15 mg tablet 15 mg PO DAILY PRN (Reason: pain) 90 Days Qty: 90 1RF No Action (DME) Aeroneb Go Nebulizer Mis See Rx Instructions .Route Qty: 1 0RF Rx Instructions: As directed (DME) blood-glucose [place] [[place]Touch Ultra2 Meter[place] [facility] [place]ructions .Route Qty: 1 0RF Rx Instructions: As directed (DME) OneTouch Ultra Test Strip See Rx Instructions .Route Qty: 100 3RF Rx Instructions: Use 1 test strip once a day (DME) lancets [OneTouch UltraSoft 2 Lancet] [facility] See Rx Instructions .Route Qty: 100 3RF Rx Instructions: Use 1 lancet once a day Discharge Orders: Discharge Order (Routine); Ordered 03/11/23 Ordered By: Clarice Forbes Activity on Discharge: As tolerated Stand Alone Forms: Patient Portal Discharge page Care Plan Goals: see below Health Concerns: left side facial tingling Plan of Treatment: start taking a baby aspirin daily as prescribed call to schedule a follow up with the neurologist you will be discharged home with Physical therapy services Assessment: see discharge summary
--- NOTE | 2023-03-11 10:58 | MHC.CM.PN ---
PT WILL DC HOME TODAY WITH [facility] [employer] [facility] AND [facility] FOR HOME PT
--- NOTE | 2023-03-11 11:26 | MHC.CM.PN ---
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
[2023-03-11 11:30] VITALS: BP 151/100; PULSE 95; RESP 22; TEMP 36.4; O2SAT 96
--- NOTE | 2023-03-11 11:34 | W.MHC.F2F ---
Service Date Service Date: 03/11/23 Encounter Date of encounter: 03/11/23 Reasons for Services Signs and symptoms assessed: needs home PT for weakness Reason for physical therapy: home safety and mobility and therapeutic exercises Overseeing Care: Kayy Aburto Homebound: Leaving the home is medically contraindicated at this time without the asist of a device and/or another person due th the listed conditions above and below. Reason homebound: unsteady gait / fall risk Certification: Based on the above findings, I certify that this patient is confined to the home and needs intermittent care home care, physical therapy and/or speech therapy, or continues to need occupational therapy. The patient is under my care, and I have initiated the establishment of the plan of care. The patient will be followed by a physician who will periodically review the plan of care. Time Spent With Patient Time: Total time managing care of this patient today ____ minutes.
[2023-03-11 12:38] VITALS: BP 112/79; PULSE 92; RESP 13; O2SAT 95
== END 2023-03-11 16:47 | disposition home health service (06) ==
LOC: HO.ED 13:46 → HO.EDOVER 16:07
PROVIDERS: Admitting Provider Physician Assistant Medical; Emergency Provider Emergency Medicine; PCP Internal Medicine; Visit Provider Physician Assistant Medical
DX: R53.1 Weakness (principal); R20.2 Paresthesia of skin; R07.89 Other chest pain; I10 Essential (primary) hypertension; E78.5 Hyperlipidemia, unspecified; M25.50 Pain in unspecified joint; R26.2 Difficulty in walking, not elsewhere classified; E11.9 Type 2 diabetes mellitus without complications; J45.30 Mild persistent asthma, uncomplicated; Z11.52 Encounter for screening for COVID-19
CPT/HCPCS: 36415; 70450; 70496; 70498; 70551; 80053; 80061; 82550; 82947; 83036; 83735; 84484; 84702; 85025; 87502; 87635; 93005; 94640; 97162; 97165; 99222; 99285; J1650

== ENCOUNTER → 2023-03-10 08:42 | Outpatient (BNV) | payer OTHER, SELFPAY | PROVIDERS: Emergency Provider Emergency Medicine; PCP Internal Medicine; Visit Provider Internal Medicine Cardiovascular Disease | DX: R20.2 Paresthesia of skin (principal) | CPT/HCPCS: 93010 ==

== ENCOUNTER → 2023-03-10 15:46 | Outpatient (BNV) | payer OTHER, SELFPAY | PROVIDERS: Admitting Provider Physician Assistant Medical; Emergency Provider Emergency Medicine; PCP Internal Medicine; Visit Provider Physician Assistant Medical | DX: R53.1 Weakness (principal); R20.2 Paresthesia of skin; E11.9 Type 2 diabetes mellitus without complications | CPT/HCPCS: 99223; 99239; G0180 ==

== ENCOUNTER 2023-03-16 14:45 | Outpatient (AMB) | payer OTHER, SELFPAY ==
--- NOTE | 2023-03-16 14:48 | A.OFFPC_ITS ---
Vital Signs 03/16/23 15:07 Height 5 ft 7 in Weight 210 lb 8 oz BMI 33.0 BP 128/82 Blood Pressure Location Lt brachial Position Sitting Respiration 16 Pulse 98 Pulse Source Pulse Oximeter Pulse Oximetry (%) 97 Oxygen Delivery Method Room Air Intake Visit Reasons: ED f/u visit Intake Note: Patient is here to follow-up after a visit the emergency department at [facility] on 03/10/23 for Weakness, Tingling, chest pressure. 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 phentermine Allergy (Intermediate, Verified 03/16/23 15:26) ANXIETY tramadol Allergy (Intermediate, Verified 03/16/23 15:26) stomach upset adhesive tape [ADHESIVE TAPE] Allergy (Mild, Verified 03/16/23 15:) RASH oxycodone [OXYCODONE] Adverse Reaction (Intermediate, Verified 03/16/23 15:) VOMITING Medication List - Last Reconciled 03/16/23 by Kayy Aburto MD albuterol sulfate 90 mcg/actuation (ProAir HFA) 2 puffs inhalation Q6H PRN 30 days aspirin 81 mg PO DAILY 30 days benzonatate 200 mg PO TID PRN bisacodyl 5 mg PO BEDTIME 90 days blood sugar diagnostic ([facility] ([facility] Ultra Test strips) Use 1 test strip once a day blood-glucose meter ([facility] ([facility] Ultra2 Meter) As directed cholecalciferol (vitamin D3) 25 mcg PO DAILY dulaglutide (Trulicity) 1.5 mg (0.5 mL) subcut TH fenofibrate 54 mg PO DAILY fluticasone propion-salmeterol 115-21 mcg/actuation (Advair HFA) 2 puffs PO BID ipratropium bromide 2 sprays intranasal TID-QID PRN 30 days lancets ([employer] UltraSoft 2 Lancet) Use 1 lancet once a day loratadine 10 mg PO DAILY PRN lorazepam 1 mg PO TID PRN meclizine 25 mg PO Q6H PRN metformin 850 mg PO DAILY nebulizers ([employer]one[employer] Go Nebulizer) As directed omalizumab (Xolair) 300 mg subcut Q4W omeprazole 20 mg PO DAILY ondansetron 4 mg PO Q8H PRN paroxetine HCl 1 tab PO DAILY paroxetine HCl 10 mg PO QAM rosuvastatin 20 mg PO BEDTIME 90 days zolpidem 10 mg PO BEDTIME PRN Tobacco use date assessed: 03/16/23 Dental Screening Dental Screen Date: 03/16/23 Did you have a dental visit in the last 12 months?: Yes Did you have a dental problem in the last 6 months where you did not have access to dental care?: No Was dental information given to patient?: Patient has dentist HPI HPI Comments History of Present Illness Details This is a 57-year-old female with diabetes mellitus type 2, hypertension and mild major depression that comes today as a hospital discharge follow-up with discharge date 03/11/2023 due to left facial numbness and left arm numbness that lasted about 24 hours and resolve on its own. CT scan of the head CTA of head and neck and MRI of the brain were done showing no acute infarct. She just started aspirin for prophylaxis. Blood glucose has been stable. Blood pressure well controlled with medications. Depression also stable with paroxetine. No chest pain or shortness of breath. EKG also was normal in the h ospital. [facility] Medical History (Updated 03/16/23 @ 15:39 by Kayy Aburto MD) Hx of acute myeloid leukemia in remission Benign paroxysmal positional vertigo Hospital discharge follow-up Abscess Essential hypertension Diabetes mellitus Migraines Hand numbness Mild persistent asthma Impaired glucose tolerance Mild recurrent major depression Herpes simplex type 2 infection Mixed hyperlipidemia Supraventricular tachycardia Left leg pain GERD (gastroesophageal reflux disease) Insomnia Left knee pain Nausea Depression with anxiety Surgical History History of esophagogastroduodenoscopy (EGD) Hx of colonoscopy History of removal of cyst History of surgery History of total abdominal hysterectomy History of cardiac radiofrequency ablation Family History Father Brain cancer Mother Esophageal cancer Sister Breast cancer Paternal Uncle Diabetes Hypertension Social History Household Members: Children Housing: House Do you presently have visiting nurse or other home services: Yes Alcohol intake: never Patient Tobacco Use Status: Never used Tobacco e-Cigarette/Vaping Use: Never Used Second Hand Smoke Exposure: No Advance Directives Date on File: 03/11/23 service: No Current occupational status: unemployed Sexual orientation: Straight/Heterosexual Gender identity: Female Cognitive needs: No Hearing needs: No Vision needs: No Questionnaire PHQ-9 Over the last 2 weeks, how often have you been bothered by any of the following problems? 1. Little interest or pleasure in doing things: not at all 2. Feeling down, depressed, or hopeless: not at all 3. Trouble falling or staying asleep, or sleeping too much: not at all 4. Feeling tired or having little energy: not at all 5. Poor appetite or overeating: not at all 6. Feeling bad about yourself - or that you are a failure or have let yourself or your family down: not at all 7. Trouble concentrating on things, such as reading the newspaper or watching television: not at all 8. Moving or speaking so slowly that other people could have noticed. Or the opposite - being so fidgety or restless that you have been moving around a lot more than usual: not at all 9. Thoughts that you would be better off or of hurting yourself in some way: not at all Total score: 0 Depression Screening Interpretation: Negative Depression Screening Done: Yes 53216 - PHQ-9 Billing: Yes Source: Developed by Drs. Tez Bowen, Bree Perez, Cesar Gonzalez and colleagues, with an educational alexia from [employer]. Thrive Questionnaire Date Thrive assessed: 03/11/23 Currently or been in a relationship where the following occur: no concerns reported AUDIT C Alcohol Use Questionnaire (AUDIT-C) 1. How often do you have a drink containing alcohol?: Never 3. How often do you have six or more drinks on one occasion?: Never Total Score: 0 DICKSON-7 AMB Questionnaire DICKSON-7 Date DICKSON - 7 assessed: 03/16/23 Feeling nervous, anxious, or on edge: 0 = Not at all Not being able to stop or control worryin = Not at all Worrying too much about different things: 0 = Not at all Trouble relaxin = Not at all Being so restless that it is hard to sit still: 0 = Not at all Becoming easily annoyed or irritable: 0 = Not at all Feeling afraid as if something awful might happen: 0 = Not at all Total DICKSON-7 score (0-4 normal; 5-9 mild; 10-14 moderate; 15-21 severe): 0 Source: Developed by Drs. Tez Bowen, Bree Perez, Cesar Gonzalez and colleagues, with an educational alexia from [employer]. DICKSON-7 Assessment Billing DICKSON-7 Assessment Tool: DICKSON-7 Assessment 21162 Review of Systems Const All systems reviewed & are unremarkable except as noted in HPI and below Eyes Reports no additional complaints, Denies change in vision and Denies other visual disturbances Card Denies chest pain at rest, Denies chest pain with activity, Denies edema, Denies irregular heart rhythm, Denies claudication, Denies dyspnea, Denies dyspnea on exertion, Denies orthopnea, Denies paroxysmal nocturnal dyspnea and Denies slow heart rate Resp Denies cough, Denies dyspnea and Denies dyspnea on exertion GI Denies abdominal pain, Denies change in bowel habits, Denies excessive flatus, Denies nausea and Denies vomiting Denies urinary incontinence, Denies urinary hesitancy and Denies urinary urgency Musc Denies abnormal gait, Denies atrophy, Denies deformity and Denies limited range of motion Skin/Breast Denies bleeding lesions, Denies changing lesions and Denies rash Neuro Denies abnormal gait and Denies lack of coordination Physical exam (Primary Care) Vital Signs: Last Vital Signs Pulse 98 03/16/23 15:07 Resp 16 03/16/23 15:07 BP 128/82 03/16/23 15:07 Pulse Ox 97 03/16/23 15:07 Oxygen Delivery Method Room Air 03/16/23 15:07 BMI result Body Mass Index 33.0 Tobacco/Smoking Status: Tobacco use Status Tobacco use date assessed 03/16/23 03/16/23 15:16 Patient Tobacco Use Status Never used Tobacco 03/16/23 14:48 e-Cigarette/Vaping Use Never Used 03/16/23 14:48 PHQ-9: PHQ-9 Score PHQ-9: Total score 0 03/16/23 15:10 Depression Screening Interpretation: Negative Thrive Assessment: Date of Thrive Assessment Date Thrive assessed 03/11/23 03/16/23 14:48 Currently or been in a relationship where the following occur: no concerns reported Const Orientation/consciousness: patient oriented x3 Eyes General: appearance normal, both eyes and all related structures Eyelids: Yes eyelids normal Conjunctivae: conjunctivae normal Neck Neck: Yes normal visual inspection and Yes supple Resp Effort & Inspection: normal respiratory effort Auscultation: clear to auscultation bilaterally Cardio Jugular venous distension: no JVD Rate: regular rate Rhythm: regular rhythm Heart sounds: S1 normal heart sound present and S2 normal heart sound present Neuro General: patient oriented x3, moves all extremities and no focal motor deficits Extrem General: Yes full ROM Office Procedures Flu Questionnaire Does the patient have a severe egg allergy?: No Does the patient have severe life threatening allergies?: No Does the patient have a fever or illness today?: No Has the patient ever had Guillain-Erin Syndrome?: No Has the patient ever had any past reaction to a flu shot?: No Immunizations flu vacc [id number] 6mos up(PF) 60 mcg(15 mcgx4)/0.5 mL IM syringe Performing Provider: Kayy Aburto MD [facility] Administered by: ELIUD Gonzalez on 03/16/23 15:19 Dose Route Admin Location Dispensed Lot Number Expiration Date NDC Medical Staff Director 0.5 mL IM Right Deltoid 0.5 mL [id number] 09/04/23 64630-742-15 [employer] VIS Given Date VIS Provided VIS Publication Date 03/16/23 Single Vaccine 20 Eligibility Eligibility Date Funding Source Not [facility] Eligible 03/16/23 Private Assessment and Plan Assessment & Plan (1) Hospital discharge follow-up: Code(s): Z09 - Encounter for follow-up examination after completed treatment for con ditions other than malignant neoplasm Plan: Discharge date 03/11/2023 due to TIA. Left facial numbness and arm numbness resolved. MRI of the brain, head CT, CTA of head and neck show no significant abnormality that could explain this. Patient was discharged home with aspirin. (2) TIA (transient ischemic attack): Code(s): G45.9 - Transient cerebral ischemic attack, unspecified Plan: Continue aspirin. (3) Essential hypertension: Code(s): I10 - Essential (primary) hypertension Plan: Continue lisinopril. Blood pressure goal is equal or less than 130/80. (4) Diabetes mellitus: Code(s): E11.9 - Type 2 diabetes mellitus without complications Qualifiers: Diabetes mellitus type: type 2 Diabetes mellitus buttermaker helper insulin use: without [facility] use Diabetes mellitus complication status: without complication Qualified Code(s): E11.9 - Type 2 diabetes mellitus without complications Plan: Continue metformin. A1c goal is equal or less than 7%. (5) Mild recurrent major depression: Code(s): F33.0 - Major depressive disorder, recurrent, mild Plan: Continue paroxetine. Orders: Orders Influenza [id number] Immunization Today Z23 - Encounter for immunization Coding Level of Care Code TCM Mod MDM <= 7 Days Diagnoses Hospital discharge follow-up Z09 TIA (transient ischemic attack) G45.9 Essential hypertension I10 Type 2 diabetes mellitus without complication, without long-term current use of insulin E11.9 Diabetes mellitus type: type 2 Diabetes mellitus buttermaker helper insulin use: without [facility] use Diabetes mellitus complication status: without complication Mild recurrent major depression F33.0 Additional Codes DICKSON-7 Assessment Billing - DICKSON-7 Assessment Tool: DICKSON-7 Assessment 57727 ([id number]) Time Spent (min) 25
[2023-03-16 15:07] VITALS: BP 128/82; PULSE 98; RESP 16; O2SAT 97; BMI 33.0
== END 2023-03-16 15:33 | disposition home or self-care (01) ==
PROVIDERS: PCP Internal Medicine; Visit Provider Internal Medicine
DX: Z23 Encounter for immunization (principal); G45.9 Transient cerebral ischemic attack, unspecified; I10 Essential (primary) hypertension; E11.9 Type 2 diabetes mellitus without complications; F33.0 Major depressive disorder, recurrent, mild
CPT/HCPCS: 90471; 90686; 99214

== ENCOUNTER 2023-03-29 08:55 | Outpatient (REF) | payer OTHER, SELFPAY ==
--- NOTE | 2023-03-10 15:58 | PM.NEUROCN ---
History of Present Illness Data of Consult Service Date: 03/10/23 HPI Reason for consult: Numbness 57 years old woman with hypertension and migraine who came to hospital with new onset of left-sided face and arm numbness. She put her right hand in front of her face stating that the left side of the face was numb and left arm was numb and tingly. She noted this either last night or upon waking up this morning. There was no other associated symptom in she denied having any headache. There was no recent cold or flu-like illness or head trauma. Review of Systems Review of Systems: No cold or flu-like illness palpitation or shortness of breath. [facility] Past Medical History Medical History Hx of acute myeloid leukemia in remission Benign paroxysmal positional vertigo Hospital discharge follow-up Abscess Essential hypertension Diabetes mellitus Migraines Hand numbness Mild persistent asthma Impaired glucose tolerance Mild recurrent major depression Herpes simplex type 2 infection Mixed hyperlipidemia Supraventricular tachycardia Left leg pain GERD (gastroesophageal reflux disease) Insomnia Left knee pain Nausea Depression with anxiety Family History Family History Father Brain cancer Mother Esophageal cancer Sister Breast cancer Paternal Uncle Diabetes Hypertension Surgical History Surgical History History of esophagogastroduodenoscopy (EGD) Hx of colonoscopy History of removal of cyst History of surgery History of total abdominal hysterectomy History of cardiac radiofrequency ablation Social History Social History Household Members: Children Housing: House Do you presently have visiting nurse or other home services: Yes Alcohol intake: never Patient Tobacco Use Status: Never used Tobacco Smoked in Last 30 Days: No e-Cigarette/Vaping Use: Never Used Second Hand Smoke Exposure: No Advance Directives: No Advance Directives Information Provided: Yes service: No Current occupational status: unemployed Sexual orientation: Straight/Heterosexual Gender identity: Female Cognitive needs: No Hearing needs: No Vision needs: No Meds Allergies Allergy/AdvReac Type Severity Reaction Status Date / Time bee pollen [BEE STINGS] Allergy Intermediate RASH Verified 02/15/23 08:52 SWELLING PAIN FULL. phentermine Allergy Intermediate ANXIETY Verified 02/15/23 08:52 tramadol Allergy Intermediate stomach Verified 02/15/23 08:52 upset adhesive tape [ADHESIVE TAPE] Allergy Mild RASH Verified 02/15/23 08:52 oxycodone [OXYCODONE] AdvReac Intermediate VOMITING Verified 02/15/23 08:52 Home Medications Medication Instructions Recorded Confirmed Last Taken Type lorazepam 1 mg tablet 1 mg PO TID PRN Anxiety 02/13/20 03/10/23 Unknown History zolpidem 10 mg tablet 10 mg PO BEDTIME PRN Insomnia 02/13/20 03/10/23 03/09/22 History fluticasone propionate 115 2 puff PO BID 05/06/21 03/10/23 03/09/22 History mcg-salmeterol 21 mcg/actuation HFA inhaler (Advair HFA) omalizumab 150 mg/mL subcutaneous 300 mg subcut Q4W 05/14/22 03/10/23 Unknown History syringe (Xolair) paroxetine HCl 40 mg tablet 1 tab PO DAILY 05/14/22 03/10/23 03/09/22 History loratadine 10 mg tablet 10 mg PO DAILY PRN Allergy Symptoms 08/09/22 03/10/23 Unknown History paroxetine HCl 10 mg tablet 10 mg PO QAM 08/09/22 03/10/23 03/09/22 History fenofibrate 54 mg tablet 54 mg PO DAILY 10/29/22 03/10/23 03/09/22 History benzonatate 200 mg capsule 200 mg PO TID PRN cough 03/10/23 03/10/23 Unknown History metformin 850 mg tablet 850 mg PO DAILY 03/10/23 03/10/23 03/09/22 History Physical Exam Neuro: Other: She is alert and awake with normal spontaneity of speech fluency comprehension and affect. Face is symmetrical. Visual rios are full. There is no pronator drift. Fingers to nose testing is normal. There is mild sensory extinction of left side. Deep tendon reflexes are trace with flexor plantars. Results Labs Labs: Noncontrast head CT and CTA of brain and neck did not reveal any significant abnormality. Assessment and Plan (1) Tingling: Status: Acute 57 years old woman with uncontrolled hypertension and new onset of left face and arm numbness with no motor finding or symptom. Microvascular ischemic infarct in thalamus area can present in this manner though head CT did not reveal any significant pathology. Alternate etiology could be migraine. But it migraine symptoms usually do not loss this way and patients usually have headache. I would recommend a noncontrast brain MRI to look at her right thalamus. In the meantime, blood pressure control, statin and anti-platelet agents are recommended for treatment. Procedures Date of Service Date of Service: 03/10/23
== END 2023-03-29 08:56 | disposition home or self-care (01) ==
LOC: HO.MDS 08:55
PROVIDERS: Visit Provider Internal Medicine Pulmonary Disease
DX: J45.50 Severe persistent asthma, uncomplicated (principal); R20.2 Paresthesia of skin
CPT/HCPCS: 96372

== ENCOUNTER 2023-04-22 08:57 | Outpatient (AMB) | payer OTHER, SELFPAY ==
--- NOTE | 2023-04-22 09:01 | A.OFFVIS_ITS ---
Intake Vital Signs 04/22/23 09:05 Height 5 ft 7 in Weight 210 lb BMI 32.9 BP 144/91 H Blood Pressure Location Lt brachial Position Sitting Pulse 91 Intake Visit Reasons: 6 month follow up Intake Note: Patient 6 month follow up for lab and abd MRI results. Patient cc: constipation and heartburn with some burning sensation. Denies any other GI issues. 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 phentermine Allergy (Intermediate, Verified 04/22/23 09:00) ANXIETY tramadol Allergy (Intermediate, Verified 04/22/23 09:00) stomach upset adhesive tape [ADHESIVE TAPE] Allergy (Mild, Verified 04/22/23 09:00) RASH oxycodone [OXYCODONE] Adverse Reaction (Intermediate, Verified 04/22/23 09:00) VOMITING HPI 6 month follow up HPI Details 57 yr old f here for f/u RECAP:pt of ulices Had GERD, on PPI--was taking prn instead of as scheduled but working for her constipation, on fiber and bisacodyl sx had improved a lot with pantoprzole and fiber diet she saw blood in stool and felt a hemorrhoid, she bought prep H and it helped mother of esophageal ca was a smoker. colonoscopy 2017- patty, flat hyperplastic poylp removed EGD 10/2018--fundic gland polyps, esophagitis--increased IEL duodenum, chronci esophagitis and gastritis celaic panel negative h pylori breath test neg GES 04/2019--normal --colonoscopy --11/2019--polyp removed--m ucosal, benign, internal hemorrhoids, rept 3 yr due to fair prep EGD 11/26 done due to dysphagia: inflammation GEJ and dilation to 19 mm UEs and LES Path: moderate inflammation GEJ, active esophagitis, hyperplastic polyps stomach EGD 06/2022 with dilation of esophagus and stomach esophagitis gastritis fundic gland polyps small hiatal hernia schatzki ring Path: A. Stomach, biopsy: Oxyntic mucosa with moderate chronic inactive inflammation; no Helicobacter organisms seen. B. Stomach, polyps: Fundic gland polyps with background mild chronic inactive inflammation; no Helicobacter organisms seen. C. GE junction, biopsy: - Active esophagitis (mostly neutrophils). - No glandular epithelium identified. ALSO checked RAST; high levels for several foods incl peanuts, almonds, sesame, WHEAT INTERIM: she has constipation occasional acid reflux no abdominal pain no nausea no vomiting she does not like metamucil powder no issues wiht dysphagia since dilation EXAM: GENERAL: The patient is well developed and nontoxic. VITAL SIGNS:see workflow HEENT: Nonicteric sclerae, PERRLA, EOMI. Oropharynx clear. Moist mucous membranes. Conjunctivae appear well perfused. No thyroid mass. CHEST: Chest wall is nontender. HEART: Regular rate and rhythm without murmurs. LUNGS: Clear to auscultation bilaterally. ABDOMEN: Soft, positive bowel sounds, nontender, no organomegaly.no flank tenderness SKIN: No rash, no excessive bruising, petechiae, or purpura. NEUROLOGIC: Cranial nerves II-XII intact without motor/sensory deficit. Assessments 1. GERD with esophagitis -on PPI, better since dilation 2/ Food allergies 3/ constipation maybe slow transit or du e to diet, meds PLAN: 1/ repeat egd with dilation prn, cont wi th PPI, taking vit D and multivitamin 2/ food allergies--avoiding triggers 3/ sent her miralax to try with bisacody l, also due repeat colonoscopy, ordered PEG along with zofran prn PFSH Medical History Hx of acute myeloid leukemia in remission Benign paroxysmal positional vertigo Hospital discharge follow-up Abscess Essential hypertension Diabetes mellitus Migraines Hand numbness Mild persistent asthma Impaired glucose tolerance Mild recurrent major depression Herpes simplex type 2 infection Mixed hyperlipidemia Supraventricular tachycardia Left leg pain GERD (gastroesophageal reflux disease) Insomnia Left knee pain Nausea Depression with anxiety Surgical History History of esophagogastroduodenoscopy (EGD) Hx of colonoscopy History of removal of cyst History of surgery History of total abdominal hysterectomy History of cardiac radiofrequency ablation Family History Father Brain cancer Mother Esophageal cancer Sister Breast cancer Paternal Uncle Diabetes Hypertension Social History Household Members: Children Housing: House Do you presently have visiting nurse or other home services: Yes Alcohol intake: never Patient Tobacco Use Status: Never used Tobacco e-Cigarette/Vaping Use: Never Used Second Hand Smoke Exposure: No Advance Directives Date on File: 03/11/23 service: No Current occupational status: unemployed Sexual orientation: Straight/Heterosexual Gender identity: Female Cognitive needs: No Hearing needs: No Vision needs: No Assessment & Plan Assessment & Plan (1) Constipation by delayed colonic transit: Code(s): K59.01 - Slow transit constipation Plan: add miralax, see above Medications: New polyethylene glycol 3350 (Miralax) 17 grams PO DAILY 510 grams 1RF peg-electrolyte soln 420 gram until fecal effluent is clear; 240 mL PO Q10M 4,000 mL 0RF ondansetron 4 mg PO Q8H PRN 10 tabs 0RF nausea and vomiting Coding Level of Care Code Est Pt Level 3 (53068) Diagnoses Constipation by delayed colonic transit K59.01
[2023-04-22 09:05] VITALS: BP 144/91; PULSE 91; BMI 32.9
== END 2023-04-22 09:50 | disposition home or self-care (01) ==
PROVIDERS: PCP Internal Medicine; Visit Provider Internal Medicine Gastroenterology
DX: K59.01 Slow transit constipation (principal)
CPT/HCPCS: 99213

== ENCOUNTER → 2023-04-22 08:57 | Outpatient (BNVA) | payer OTHER, SELFPAY | PROVIDERS: PCP Internal Medicine; Visit Provider Internal Medicine Gastroenterology | DX: K59.01 Slow transit constipation (principal) | CPT/HCPCS: 99212 ==

== ENCOUNTER 2023-04-26 09:11 | Outpatient (REF) | payer OTHER, SELFPAY | END 2023-04-26 09:12 | disposition home or self-care (01) | LOC: HO.MDS 09:11 | PROVIDERS: Visit Provider Internal Medicine Pulmonary Disease | DX: J45.50 Severe persistent asthma, uncomplicated (principal) | CPT/HCPCS: 96372 ==

== ENCOUNTER 2023-04-29 12:43 | Outpatient (AMB) | payer OTHER, SELFPAY ==
[2023-04-29 12:55] VITALS: BP 122/78; PULSE 94; O2SAT 98; BMI 33.0
--- NOTE | 2023-04-29 12:55 | A.OFFVIS_ITS ---
Intake Vital Signs 04/29/23 12:55 Height 5 ft 7 in Weight 210 lb 8.663 oz BMI 33.0 BP 122/78 Blood Pressure Location Rt brachial Position Sitting Pulse 94 Pulse Source Doppler Pulse Oximetry (%) 98 Oxygen Delivery Method Room Air Intake Visit Reasons: Asthma Larry Car Operator Required: Yes Larry Car Operator Name: Xiao Curry Allergies bee pollen [BEE STINGS] Allergy (Intermediate, Verified 04/29/23 12:59) RASH SWELLING PAIN FULL. phentermine Allergy (Intermediate, Verified 04/29/23 12:59) ANXIETY tramadol Allergy (Intermediate, Verified 04/29/23 12:59) stomach upset adhesive tape [ADHESIVE TAPE] Allergy (Mild, Verified 04/29/23 12:59) RASH oxycodone [OXYCODONE] Adverse Reaction (Intermediate, Verified 04/29/23 12:59) VOMITING HPI Asthma HPI Details 57 year-old nonsmoker, with underlying h istory of lifelong asthma previously controlled on Spiriva, Advair, and albuterol MDI, also with COVID-19 back in March of 2021 r now followed for asthma and environmental allergies. Patient's symptoms are now well controlled on Xolair, Advair, albuterol MDI, and nasal ipratropium. She denies any recent exacerbations. [facility] Medical History Hx of acute myeloid leukemia in remission Benign paroxysmal positional vertigo Hospital discharge follow-up Abscess Essential hypertension Diabetes mellitus Migraines Hand numbness Mild persistent asthma Impaired glucose tolerance Mild recurrent major depression Herpes simplex type 2 infection Mixed hyperlipidemia Supraventricular tachycardia Left leg pain GERD (gastroesophageal reflux disease) Insomnia Left knee pain Nausea Depression with anxiety Surgical History History of esophagogastroduodenoscopy (EGD) Hx of colonoscopy History of removal of cyst History of surgery History of total abdominal hysterectomy History of cardiac radiofrequency ablation Family History Father Brain cancer Mother Esophageal cancer Sister Breast cancer Paternal Uncle Diabetes Hypertension Social History Household Members: Children Housing: House Do you presently have visiting nurse or other home services: Yes Alcohol intake: never Patient Tobacco Use Status: Never used Tobacco e-Cigarette/Vaping Use: Never Used Second Hand Smoke Exposure: No Advance Directives Date on File: 03/11/23 service: No Current occupational status: unemployed Sexual orientation: Straight/Heterosexual Gender identity: Female Cognitive needs: No Hearing needs: No Vision needs: No Review of Systems Const Denies daytime sleepiness, Denies excessive sweating, Denies fatigue, Denies fever(s), Denies lethargy, Denies malaise, Denies night sweats, Denies snoring and Denies weight loss Eyes Denies blurry vision and Denies itchy eyes ENT Denies nasal congestion, Denies post nasal drip, Denies sinus pain, Denies sinus pressure and Denies other ( Thrush) Card Denies chest pain, Denies pedal edema, Denies dyspnea, Denies orthopnea and Denies paroxysmal nocturnal dyspnea Resp Denies cough, Denies hemoptysis, Denies excessive phlegm production, Denies dyspnea, Denies snoring and Denies wheezing GI Denies abdominal pain and Denies heartburn Musc Denies myalgias, Denies arthralgias and Denies joint swelling Skin/Breast Denies rash Neuro Denies memory loss and Denies seizure-like activity Psych Denies abnormal sleep pattern, Denies anxiety and Denies memory loss Endo Denies excessive sweating, Denies fatigue and Denies heat intolerance Zak/Lymph Denies easy bruising Aller/Immun Denies itchy eyes, Denies seasonal rhinorrhea and Denies wheezing Physical Exam Vital Signs: Last Vital Signs Pulse 94 04/29/23 12:55 BP 122/78 04/29/23 12:55 Pulse Ox 98 04/29/23 12:55 Oxygen Delivery Method Room Air 04/29/23 12:55 BMI result Body Mass Index 33.0 Const General: no acute distress and alert Nutritional Appearance: not obese Orientation/consciousness: Other orientation findings ( oriented) HEENT Head: Yes atraumatic Eyes General: appearance normal, both eyes and all related structures Sclerae: sclerae normal EOM: EOMs intact bilaterally Neck Neck: Yes supple Lymphatic: no lymphadenopathy noted Resp Effort & Inspection: normal respiratory effort and no use of accessory muscles Auscultation: clear to auscultation bilaterally Cardio Rate: regular rate Rhythm: regular rhythm Heart sounds: no gallops, no murmurs and no rubs Skin General skin exam: other ( warm) Extrem General: No clubbing, No cyanosis and No edema Assessment & Plan Assessment & Plan (1) Asthma: Code(s): J45.909 - Unspecified asthma, uncomplicated Plan: Well controlled on Xolair, Advair, and albuterol MDI. Continue current regimen. (2) Environmental allergies: Code(s): Z91.09 - Other allergy status, other than to drugs and biological substances Plan: Well controlled on Xolair and nasal ipratropium. Continue current regimen. Coding Level of Care Code Est Pt Level 4 (51003) Diagnoses Asthma J45.909 Environmental allergies Z91.09
== END 2023-04-29 13:09 | disposition home or self-care (01) ==
PROVIDERS: PCP Internal Medicine; Visit Provider Internal Medicine Pulmonary Disease
DX: J45.909 Unspecified asthma, uncomplicated (principal); Z91.09 Other allergy status, other than to drugs and biological substances
CPT/HCPCS: 99214

== ENCOUNTER → 2023-04-29 12:43 | Outpatient (BNVA) | payer OTHER, SELFPAY | PROVIDERS: PCP Internal Medicine; Visit Provider Internal Medicine Pulmonary Disease | DX: J45.909 Unspecified asthma, uncomplicated (principal); Z91.09 Other allergy status, other than to drugs and biological substances | CPT/HCPCS: 99212 ==

== ENCOUNTER 2023-05-23 09:15 | Outpatient (REF) | payer OTHER, SELFPAY ==
[2023-05-23 09:18] VITALS: BP 138/96; PULSE 80; RESP 20; TEMP 36.4; O2SAT 96
[2023-05-23] MEDS: Omalizumab 150 MG/ML SYRINGE 300 MG SUBCUT (09:26)
== END 2023-05-23 09:16 | disposition home or self-care (01) ==
LOC: HO.MDS 09:15
PROVIDERS: Visit Provider Internal Medicine Pulmonary Disease
DX: J45.50 Severe persistent asthma, uncomplicated (principal)
CPT/HCPCS: 96372

== ENCOUNTER 2023-06-13 09:05 | Outpatient (REF) | payer OTHER, SELFPAY ==
[2023-06-13 09:35] LABS: MANUAL DIFF FLAG NO
[2023-06-13 10:30] LABS: Basophils Absolute Auto 0.1 X10*3/uL (0.0-0.2); Basophils Percent Auto 0.7 % (0-2); Eosinophils Absolute Auto 0.3 X10*3/uL (0.0-0.4); Eosinophils Percent Auto 3.7 % (0-4); Hematocrit 42.3 % (37.0-47.0); Hemoglobin 14.1 g/dl (12.0-16.0); Imm Gran Abs Auto 0.07 X10*3/uL (0.00-0.03); Lymphocytes Absolute Auto 2.4 X10*3/uL (1.2-4.9); Lymphocytes Percent Auto 35.3 % (20-40); Mean Corpuscular HGB Conc 33.3 g/dl (31.0-35.0); Mean Corpuscular Hemoglobin 29.3 pg (27.0-33.0); Mean Corpuscular Volume 87.8 fL (80.0-98.0); Mean Platelet Volume 8.8 fL (9.4-12.3); Monocytes Absolute Auto 0.5 X10*3/uL (0.1-1.2); Monocytes Percent Auto 7.7 % (2-11); Neutrophils Absolute Auto 3.5 x10*3/uL (2.0-8.3); Neutrophils Percent Auto 51.6 % (45-73); Platelet Count 296 X10*3/uL (160-400); Red Blood Count 4.82 X10*6/uL (4.20-5.50); Red Cell Distribution Width 13.7 % (11.0-16.0); White Blood Count 6.7 X10*3/uL (4.8-10.8)
[2023-06-13 11:19] LABS: Alanine Aminotransferase 26 U/L (0-31); Albumin Level 4.3 g/dL (3.5-5.0); Alkaline Phosphatase 92 U/L (39-117); Anion Gap 12 (12-20); Aspartate Amino Transferase 22 U/L (5-31); Bilirubin Total 0.5 mg/dL (0.0-1.0); Blood Urea Nitrogen 10 mg/dL (9-16); Calcium 9.5 mg/dL (8.4-10.2); Carbon Dioxide 24 mmol/L (22-29); Chloride 111 mmol/L (96-108); Cholesterol 144 mg/dL (<200); Estimated Glomerular Filt Rate > 60; Glucose Fasting 157 mg/dL (60-99); Glucose Random 157 mg/dL (60-115); HDL Cholesterol 59 mg/dL (>40); Iron 62 mcg/dL (30-160); LDL Cholesterol Calculated 69 mg/dL (<100); Magnesium 1.6 mg/dL (1.6-2.6); Percent Iron Saturation 20 % (15-50); Sodium 143 mmol/L (135-145); Total Iron Binding Capacity 309 mcg/dL (228-428); Total Protein 6.9 g/dL (6.5-8.0); Triglycerides 84 mg/dL (<150); Unsaturated Iron Binding 247 ug/dL
[2023-06-13 12:01] LABS: Creatinine Urine 64.18 mg/dL; Microalbum/Creatinine Ratio Ur 10.9 ug/mg cr (<30)
[2023-06-13 12:50] LABS: Vitamin B12 452 pg/mL (200-900)
== END 2023-06-13 09:06 | disposition home or self-care (01) ==
LOC: HO.LAB 09:05
PROVIDERS: PCP Internal Medicine; Visit Provider Internal Medicine
DX: E11.9 Type 2 diabetes mellitus without complications (principal); E78.5 Hyperlipidemia, unspecified; E53.8 Deficiency of other specified B group vitamins; E55.9 Vitamin D deficiency, unspecified; D64.9 Anemia, unspecified
CPT/HCPCS: 36415; 80053; 80061; 82043; 82306; 82570; 82607; 82746; 83540; 83735; 85025

== ENCOUNTER 2023-06-20 12:56 | Outpatient (AMB) | payer OTHER, SELFPAY ==
[2023-06-20 12:59] VITALS: BP 126/80; BMI 31.8
--- NOTE | 2023-06-20 12:59 | MHC.PC.OV ---
Vital Signs 06/20/23 12:59 Height 5 ft 7 in Weight 203 lb BMI 31.8 BP 126/80 Blood Pressure Location Lt brachial Position Sitting Intake Visit Reasons: 4 month f/u Intake Note: Patient here for a 4 month follow up Manager Shell Required: No Accompanied by: Self / Same As Patient Allergies bee pollen [BEE STINGS] Allergy (Intermediate, Verified 06/20/23 13:30) RASH SWELLING PAIN FULL. phentermine Allergy (Intermediate, Verified 06/20/23 13:30) ANXIETY tramadol Allergy (Intermediate, Verified 06/20/23 13:30) stomach upset adhesive tape [ADHESIVE TAPE] Allergy (Mild, Verified 06/20/23 13:30) RASH oxycodone [OXYCODONE] Adverse Reaction (Intermediate, Verified 06/20/23 13:30) VOMITING apremilast [From Otezla] Adverse Reaction (Verified 06/20/23 13:30) diarrhea, nausea Medication List - Last Reconciled 06/20/23 by Kayy Aburto MD albuterol sulfate 90 mcg/actuation (ProAir HFA) 2 puffs inhalation Q6H PRN 30 days aspirin 81 mg PO DAILY 30 days bisacodyl 5 mg PO BEDTIME 90 days blood sugar diagnostic (eTelemetry Ultra Test strips) Use 1 test strip once a day blood-glucose meter ([employer] Ultra2 Meter) As directed cholecalciferol (vitamin D3) 25 mcg PO DAILY dulaglutide (Trulicity) 1.5 mg (0.5 mL) subcut TH empagliflozin (Jardiance) 10 mg PO DAILY 90 days fenofibrate 54 mg PO DAILY fluticasone propion-salmeterol 115-21 mcg/actuation (Advair HFA) 2 puffs PO BID ipratropium bromide 2 sprays intranasal TID-QID PRN 30 days lancets (kontoblickTouch UltraSoft 2 Lancet) Use 1 lancet once a day loratadine 10 mg PO DAILY PRN lorazepam 1 mg PO TID PRN meclizine 25 mg PO Q6H PRN metformin 850 mg PO DAILY nebulizers (Aeroneb Go Nebulizer) As directed omalizumab (Xolair) 300 mg subcut Q4W 28 days omeprazole 20 mg PO DAILY ondansetron 4 mg PO Q8H PRN paroxetine HCl 1 tab PO DAILY paroxetine HCl 10 mg PO QAM peg-electrolyte soln 420 gram 240 mL PO Q10M polyethylene glycol 3350 (Miralax) 17 grams PO DAILY rosuvastatin 20 mg PO BEDTIME 90 days triamcinolone acetonide 0.1% topical zolpidem 10 mg PO BEDTIME PRN Tobacco use date assessed: 03/16/23 Dental Screening Dental Screen Date: 03/16/23 HPI HPI Comments History of Present Illness Details This is a 58-year-old female with diabetes mellitus type 2, hypertension, hyperlipidemia and mild recurrent major depression that complains of psoriasis more prominent in the elbows. Saw cabinet finisher recently which prescribe triamcinolone cream. She just started the cream. Otezla gives her diarrhea and she will discuss it with the cabinet finisher to see if she can change the medication. A1c within goal. Blood pressure stable. LDL within goal. Depression well controlled with medications and this is follow by Psychiatry. No chest pain or shortness of breath. [facility] Medical History (Updated 06/20/23 @ 13:46 by Kayy Aburto MD) Hx of acute myeloid leukemia in remission Benign paroxysmal positional vertigo Hospital discharge follow-up Abscess Essential hypertension Diabetes mellitus Migraines Hand numbness Mild persistent asthma Impaired glucose tolerance Mild recurrent major depression Herpes simplex type 2 infection Mixed hyperlipidemia Supraventricular tachycardia Left leg pain GERD (gastroesophageal reflux disease) Insomnia Left knee pain Nausea Depression with anxiety Surgical History History of esophagogastroduodenoscopy (EGD) Hx of colonoscopy History of removal of cyst History of surgery History of total abdominal hysterectomy History of cardiac radiofrequency ablation Family History Father Brain cancer Mother Esophageal cancer Sister Breast cancer Paternal Uncle Diabetes Hypertension Social History Household Members: Children Housing: House Do you presently have visiting nurse or other home services: Yes Alcohol intake: never Patient Tobacco Use Status: Never used Tobacco e-Cigarette/Vaping Use: Never Used Second Hand Smoke Exposure: No Advance Directives Date on File: 03/11/23 service: No Current occupational status: unemployed Sexual orientation: Straight/Heterosexual Gender identity: Female Cognitive needs: No Hearing needs: No Vision needs: No Questionnaire Thrive Questionnaire Date Thrive assessed: 03/11/23 DICKSON-7 AMB Questionnaire DICKSON-7 Date DICKSON - 7 assessed: 03/16/23 Source: Developed by Drs. Tez Bowen, Bree Perez, Cesar Gonzalez and colleagues, with an educational alexia from [employer]. Review of Systems Const All systems reviewed & are unremarkable except as noted in HPI and below Eyes Reports no additional complaints, Denies change in vision and Denies other visual disturbances Card Denies chest pain at rest, Denies chest pain with activity, Denies edema, Denies irregular heart rhythm, Denies claudication, Denies dyspnea, Denies dyspnea on exertion, Denies orthopnea, Denies paroxysmal nocturnal dyspnea and Denies slow heart rate Resp Denies cough, Denies dyspnea and Denies dyspnea on exertion GI Denies abdominal pain, Denies change in bowel habits, Denies excessive flatus, Denies nausea and Denies vomiting Skin/Breast Reports lesions Physical exam (Primary Care) Vital Signs: Last Vital Signs BP 126/80 06/20/23 12:59 BMI result Body Mass Index 31.8 Tobacco/Smoking Status: Tobacco use Status Tobacco use date assessed 03/16/23 06/20/23 13:09 Patient Tobacco Use Status Never used Tobacco 06/20/23 13:09 e-Cigarette/Vaping Use Never Used 06/20/23 13:09 Thrive Assessment: Date of Thrive Assessment Date Thrive assessed 03/11/23 06/20/23 13:09 Resp Effort & Inspection: normal respiratory effort Auscultation: clear to auscultation bilaterally Cardio Jugular venous distension: no JVD Rate: regular rate Rhythm: regular rhythm Heart sounds: S1 normal heart sound present and S2 normal heart sound present Skin Lesions: lesion noted (silvery scaly plaques in elbows b/l) Psych Appearance: grossly normal Results AMB Hemoglobin A1c AMB Hemoglobin A1c 6.9 % Last Edit by REN Schilling on 06/20/23 13:14 Results Reviewed Results Reviewed: Laboratory Last Values Hgb A1c (Clinic) 6.9 % (4.0-6.0) H 06/20/23 12:58 Assessment and Plan Assessment & Plan (1) Diabetes mellitus: Code(s): E11.9 - Type 2 diabetes mellitus without complications Qualifiers: Diabetes mellitus type: type 2 Diabetes mellitus chcf insulin use: without rodent exterminator use Diabetes mellitus complication status: without complication Qualified Code(s): E11.9 - Type 2 diabetes mellitus without complications Plan: Continue metformin, Jardiance and Trulicity. A1c goal is equal or less than 7%. (2) Hyperlipidemia LDL goal <70: Code(s): E78.5 - Hyperlipidemia, unspecified Plan: Continue statins and fibrates. LDL goal is less than 70. (3) Mild recurrent major depression: Code(s): F33.0 - Major depressive disorder, recurrent, mild Plan: Continue paroxetine. Follow-up with psychiatry. (4) Psoriasis: Code(s): L40.9 - Psoriasis, unspecified Plan: Continue triamcinolone cream. Follow-up with Dermatology. Orders: Orders AMB Hemoglobin A1c Today E11.9 - Type 2 diabetes mellitus without complications Microalbumin, Random (w Creat) 4 Months E11.9 - Type 2 diabetes mellitus without complications Vitamin D 25-OH Total 4 Months E55.9 - Vitamin D deficiency, unspecified Lipid Panel 4 Months E78.5 - Hyperlipidemia, unspecified Comprehensive [place]. Panel Fast 4 Months E11.9 - Type 2 diabetes mellitus without complications Medications: Refilled dulaglutide (Trulicity) 1.5 mg (0.5 mL) subcut TH 2 mL 6RF Coding Level of Care Code Est Pt Level 4 (33554) Diagnoses Type 2 diabetes mellitus without complication, without long-term current use of insulin E11.9 Diabetes mellitus type: type 2 Diabetes mellitus rodent exterminator insulin use: without rodent exterminator use Diabetes mellitus complication status: without complication Hyperlipidemia LDL goal <70 E78.5 Mild recurrent major depression F33.0 Psoriasis L40.9 Time Spent (min) 25
== END 2023-06-20 13:38 | disposition home or self-care (01) ==
PROVIDERS: PCP Internal Medicine; Visit Provider Internal Medicine
DX: E11.9 Type 2 diabetes mellitus without complications (principal); E78.5 Hyperlipidemia, unspecified; F33.0 Major depressive disorder, recurrent, mild; L40.9 Psoriasis, unspecified
CPT/HCPCS: 83036; 99214

== ENCOUNTER 2023-06-27 17:54 | Emergency (ER) | payer OTHER, SELFPAY ==
--- NOTE | ~2023-06-27 | XR_ITS ---
EXAMINATION: XR CHEST CLINICAL INFORMATION: Chest pain. COMPARISON: Chest radiograph 06/23/2022. TECHNIQUE: 2 views of the chest were obtained. FINDINGS: Stable prominence of the cardiomediastinal silhouette. No focal airspace opacities, pleural effusion or pneumothorax. No acute osseous findings. Visualized upper abdomen is within normal limits. XR/XR chest 2V IMPRESSION: 1. No acute cardiopulmonary findings. 2. Stable prominence of the cardiomediastinal silhouette.
[2023-06-27 18:03] VITALS: BP 141/94; PULSE 98; RESP 16; TEMP 36.8; O2SAT 98; BMI 32.6
--- NOTE | 2023-06-27 18:03 | ED_ITS ---
HPI - General Adult General Chief complaint: General Medical Stated complaint: 'doesnt feel good', possible bp issue? Time Seen by Provider: 06/27/23 20:34 Source: patient Mode of arrival: ambulatory Limitations: no limitations History of Present Illness HPI narrative: Patient with multiple complaints feeling numbness all over the body feeling hot after starting on Otezla for psoriasis last week dose increased to 30 mg twice daily for last 2 days and since then patient has been feeling hot and numbness all over the body no fever no chills Related Data Home Medications ?Medication ?Instructions ?Recorded ?Confirmed lorazepam 1 mg tablet 1 mg PO TID PRN Anxiety 02/13/20 06/20/23 zolpidem 10 mg tablet 10 mg PO BEDTIME PRN Insomnia 02/13/20 06/20/23 fluticasone propionate 115 2 puff PO BID 05/06/21 06/20/23 mcg-salmeterol 21 mcg/actuation HFA inhaler (Advair HFA) paroxetine HCl 40 mg tablet 1 tab PO DAILY 05/14/22 06/20/23 loratadine 10 mg tablet 10 mg PO DAILY PRN Allergy Symptoms 08/09/22 06/20/23 paroxetine HCl 10 mg tablet 10 mg PO QAM 08/09/22 06/20/23 fenofibrate 54 mg tablet 54 mg PO DAILY 10/29/22 06/20/23 metformin 850 mg tablet 850 mg PO DAILY 03/10/23 06/20/23 triamcinolone acetonide 0.1 % topical 06/20/23 06/20/23 topical ointment Previous Rx's ?Medication ?Instructions ?Recorded albuterol sulfate 90 mcg/actuation 2 puff inhalation Q6H PRN 02/05/21 aerosol inhaler (ProAir HFA) shortness of breath or wheezing 30 days #6.7 grams nebulizers (Aeroneb Go Nebulizer) #1 ea 02/05/21 meclizine 25 mg tablet 25 mg PO Q6H PRN Vertigo #30 tabs 05/16/22 ipratropium bromide 42 mcg (0.06 2 spray intranasal TID-QID PRN 07/09/22 %) nasal spray allergy symptoms 30 days #15 mL blood sugar diagnostic (OneTouch #100 ea 12/23/22 Ultra Test strips) blood-glucose meter (OneTouch #1 ea 12/23/22 Ultra2 Meter) lancets 30 gauge (OneTouch #100 ea 12/23/22 UltraSoft 2 Lancet) aspirin 81 mg tablet,delayed 81 mg PO DAILY 30 days #30 tabs 03/11/23 release rosuvastatin 20 mg tablet 20 mg PO BEDTIME 90 days #90 tabs 04/02/23 omeprazole 20 mg capsule,delayed 20 mg PO DAILY #90 caps 04/04/23 release ondansetron 4 mg disintegrating 4 mg PO Q8H PRN nausea and 04/22/23 tablet vomiting #10 tabs peg-electrolyte solution 420 gram 240 ml PO Q10M #4,000 mL 04/22/23 oral solution polyethylene glycol 3350 17 17 g PO DAILY #510 grams 04/22/23 gram/dose oral powder (Miralax) empagliflozin 10 mg tablet 10 mg PO DAILY 90 days #90 tabs 05/09/23 (Jardiance) bisacodyl 5 mg tablet,delayed 5 mg PO BEDTIME 90 days #90 tabs 05/11/23 release cholecalciferol (vitamin D3) 25 25 mcg PO DAILY #90 caps 06/01/23 mcg (1,000 unit) capsule omalizumab 150 mg subcutaneous 300 mg subcut Q4W 28 days #1 ea 06/16/23 solution (Xolair) dulaglutide 1.5 mg/0.5 mL 1.5 mg (0.5 mL) subcut TH #2 mL 06/20/23 subcutaneous pen injector (Trulicity) Allergies Allergy/AdvReac Type Severity Reaction Status Date / Time bee pollen [BEE STINGS] Allergy Intermediate RASH Verified 06/27/23 18:08 SWELLING PAIN FULL. phentermine Allergy Intermediate ANXIETY Verified 06/27/23 18:08 tramadol Allergy Intermediate stomach Verified 06/27/23 18:08 upset adhesive tape [ADHESIVE TAPE] Allergy Mild RASH Verified 06/27/23 18:08 oxycodone [OXYCODONE] AdvReac Intermediate VOMITING Verified 06/27/23 18:08 apremilast [From Otezla] AdvReac diarrhea, Verified 06/27/23 18:08 nausea Review of Systems 2 Review of Systems: Yes all other systems are reviewed and are negative PMFSH Past Medical History Medical History Hx of acute myeloid leukemia in remission Benign paroxysmal positional vertigo Hospital discharge follow-up Abscess Essential hypertension Diabetes mellitus Migraines Hand numbness Mild persistent asthma Impaired glucose tolerance Mild recurrent major depression Herpes simplex type 2 infection Mixed hyperlipidemia Supraventricular tachycardia Left leg pain GERD (gastroesophageal reflux disease) Insomnia Left knee pain Nausea Depression with anxiety Surgical History History of esophagogastroduodenoscopy (EGD) Hx of colonoscopy History of removal of cyst History of surgery History of total abdominal hysterectomy History of cardiac radiofrequency ablation Family History Family History Father Brain cancer Mother Esophageal cancer Sister Breast cancer Paternal Uncle Diabetes Hypertension Social History Social History Household Members: Children Housing: House Do you presently have visiting nurse or other home services: Yes Alcohol intake: never Patient Tobacco Use Status: Never used Tobacco Smoked in Last 30 Days: No e-Cigarette/Vaping Use: Never Used Second Hand Smoke Exposure: No Use of substances other than those prescribed or required for medical reasons: No Advance Directives: Yes Advance Directives on File: Yes Advance Directives Date on File: 03/11/23 Do you have a plan to hurt others: No Plan Patient : No service: No Current occupational status: unemployed Sexual orientation: Straight/Heterosexual Gender identity: Female Cognitive needs: No Hearing needs: No Vision needs: No Physical Exam ED Vital Signs: Vital Signs - 24 hr 06/27/23 18:03 06/27/23 20:23 Temperature 98.3 F 98.2 F Pulse Rate 98 82 Respiratory Rate 16 18 Blood Pressure 141/94 H 167/91 H Pulse Oximetry 98 98 Oxygen Delivery Method Room Air Room Air BMI result Body Mass Index 32.6 Appearance: Alert. Oriented X3. No acute distress. Anxious Eyes: PERRLA, No Nystagmus ENT: Pharynx normal. Oral Mucosa moist Neck: Normal inspection. Neck supple. CVS: Normal heart rate and rhythm. Pulses normal. Respiratory: No respiratory distress. Equal air entry bilateral, no wheezing/rales/rhonchi Abdomen: Soft and nontender. Bowel sounds are present, no mass palpable, no CVA tenderness Skin: Skin warm and dry. Normal skin color. Normal skin turgor. Extremities: No lower extremity edema. No calf tenderness Neuro: Oriented X 3. No motor deficit. No sensory deficit.No cerebellar signs , cranial nerves II-XII intact Course Course Course Narrative: This is a rapid medical exam. Defer additional HPI, ROS, PE to primary provider. 58 yo female with PMH of esophagitis, HLD, HTN, asthma, depression/anxiety, arthralgia here with chest pressure, perioral numbness, malaise since 9am. Will obtain labs, EKG, CXR VSS Medical Decision Making Medical Decision Making [facility] Narrative: Patient with multiple complaints likely side effects of Otezla dose has been increased to 30 mg twice daily for last 3 days and since then patient has been having this complaints EKGs normal high sensitive troponin also negative labs are stable patient advised to follow with professional wrestler to decrease the dose of Otezla or change the medication Differential Diagnosis Differential Diagnoses: The differential diagnosis associated with the presentation includes Anxiety/medication side effect/atypical chest pain Lab Data [facility] Lab Attestation statement: I reviewed the patient's lab results. 06/27/23 18:23 06/27/23 18:23 Labs: Lab Results 06/27/23 Range/Units 18:23 WBC 8.4 (4.8-10.8) X10*3/uL RBC 4.65 (4.20-5.50) X10*6/uL Hgb 13.8 (12.0-16.0) g/dl Hct 40.9 (37.0-47.0) % MCV 88.0 (80.0-98.0) fL MCH 29.7 (27.0-33.0) pg MCHC 33.7 (31.0-35.0) g/dl RDW 14.0 (11.0-16.0) % Plt Count 274 (160-400) X10*3/uL MPV 8.7 L (9.4-12.3) fL Immature Gran % (Auto) 0.2 (0.0-0.4) % Neut % (Auto) 52.9 (45-73) % Lymph % (Auto) 37.0 (20-40) % Loving % (Auto) 7.7 (2-11) % Eos % (Auto) 1.7 (0-4) % Baso % (Auto) 0.5 (0-2) % Lymph # (Auto) 3.1 (1.2-4.9) X10*3/uL Loving # (Auto) 0.7 (0.1-1.2) X10*3/uL Eos # (Auto) 0.1 (0.0-0.4) X10*3/uL Baso # (Auto) 0.0 (0.0-0.2) X10*3/uL Abs Immat Gran (auto) 0.02 (0.00-0.03) X10*3/uL Absolute Neuts (auto) 4.5 (2.0-8.3) x10*3/uL Absolute Nucleated RBC 0.000 (0.0-0.012) X10*3/uL Nucleated RBC % (auto) 0.0 (0.0-0.2) /100WBC PT 10.3 L (11.1-13.3) SEC INR 0.8 L (0.9-1.1) Sodium 142 (135-145) mmol/L Potassium 3.9 (3.3-5.1) mmol/L Chloride 106 (96-108) mmol/L Carbon Dioxide 29 (22-29) mmol/L Anion Gap 11 L (12-20) BUN 11 (9-16) mg/dL Creatinine 0.84 (0.5-1.4) mg/dL Estim Creat Clear Calc 87.1 Estimated GFR > 60 Random Glucose 178 H (60-115) mg/dL Calcium 10.3 H D (8.4-10.2) mg/dL Total Bilirubin 0.5 (0.0-1.0) mg/dL Direct Bilirubin 0.2 (0.0-0.5) mg/dL AST 23 (5-31) U/L ALT 26 (0-31) U/L Alkaline Phosphatase 93 (39-117) U/L Troponin I High Sens < 2.7 (<3.5-17.0) ng/L Total Protein 7.1 (6.5-8.0) g/dL Albumin 4.4 (3.5-5.0) g/dL Independent Interpretation I performed an independent interpretation of an: EKG Interpretation: Normal sinus rhythm heart rate 92 beats per minute normal interval normal axis no acute ST T wave changes no acute ischemia Discharge Plan Discharge Clinical Impression: Medication side effect Patient Disposition: Home, Self-Care Instructions: Adverse Drug Reaction (ED) Additional Instructions: Likely her symptoms from Otezla use Call your professional wrestler regarding change in medication or decrease the dosage Prescriptions: No Action (DME) Aeroneb Go Nebulizer Misc See Rx Instructions .Route Qty: 1 0RF Rx Instructions: As directed albuterol sulfate [ProAir HFA] 90 mcg/actuation HFA aerosol inhaler 2 puff inhalation Q6H PRN (Reason: shortness of breath or wheezing) 30 Days Qty: 6.7 1RF (DME) blood-glucose meter [OneTouch Ultra2 Meter] Misc See Rx Instructions .Route Qty: 1 0RF Rx Instructions: As directed (DME) OneTouch Ultra Test Strip See Rx Instructions .Route Qty: 100 3RF Rx Instructions: Use 1 test strip once a day (DME) lancets [SourceLabsTouch UltraSoft 2 Lancet] 30 gauge misc See Rx Instructions .Route Qty: 100 3RF Rx Instructions: Use 1 lancet once a day rosuvastatin 20 mg tablet 20 mg PO BEDTIME 90 Days Qty: 90 1RF omeprazole 20 mg capsule,delayed release(DR/EC) 20 mg PO DAILY Qty: 90 3RF Jardiance 10 mg tablet 10 mg PO DAILY 90 Days Qty: 90 0RF bisacodyl 5 mg tablet,delayed release (DR/EC) 5 mg PO BEDTIME 90 Days Qty: 90 0RF cholecalciferol (vitamin D3) 25 mcg (1,000 unit) capsule 25 mcg PO DAILY Qty: 90 0RF Xolair 150 mg recon soln 300 mg subcut Q4W 28 Days Qty: 1 12RF Rx Instructions: requires multiple injection sites; do not exceed 150 mg per injection site Trulicity 1.5 mg/0.5 mL pen injector 1.5 mg subcut TH Qty: 2 6RF paroxetine HCl 40 mg tablet 1 tab PO DAILY meclizine 25 mg Tablet 25 mg PO Q6H PRN (Reason: Vertigo) Qty: 30 0RF metformin 850 mg tablet 850 mg PO DAILY aspirin 81 mg Tablet,Delayed Release (Dr/Ec) 81 mg PO DAILY 30 Days Qty: 30 0RF lorazepam 1 mg tablet 1 mg PO TID PRN (Reason: Anxiety) zolpidem 10 mg tablet 10 mg PO BEDTIME PRN (Reason: Insomnia) Advair HFA 115-21 mcg/actuation HFA aerosol inhaler 2 puff PO BID triamcinolone acetonide 0.1 % ointment topical fenofibrate 54 mg tablet 54 mg PO DAILY paroxetine HCl 10 mg tablet 10 mg PO QAM loratadine 10 mg tablet 10 mg PO DAILY PRN (Reason: Allergy Symptoms) ipratropium bromide 42 mcg (0.06 %) spray,non-aerosol 2 spray intranasal TID-QID PRN (Reason: allergy symptoms) 30 Days Qty: 15 6RF Rx Instructions: administer into each nostril polyethylene glycol 3350 [Miralax] 17 gram/dose powder 17 g PO DAILY Qty: 510 1RF peg-electrolyte soln 420 gram recon soln 240 ml PO Q10M Qty: 4000 0RF Rx Instructions: until fecal effluent is clear; ondansetron 4 mg tablet,disintegrating 4 mg PO Q8H PRN (Reason: nausea and vomiting) Qty: 10 0RF Print Language: Estonian
--- NOTE | 2023-06-27 18:05 | ECG_ITS ---
Test Reason : CHEST PAIN Blood Pressure : / mmHG Vent. Rate : 092 BPM Atrial Rate : 092 BPM P-R Int : 134 ms QRS Dur : 090 ms QT Int : 372 ms P-R-T Axes : 062 -03 021 degrees QTc Int : 460 ms Normal sinus rhythm Normal ECG When compared with ECG of 10-MAR-2023 09:11, No significant change was found Referred By: Kayla Sosa Electronically Signed By:JUN OCHOA MD
[2023-06-27 18:27] LABS: MANUAL DIFF FLAG NO
[2023-06-27 18:28] LABS: Basophils Percent Auto 0.5 % (0-2); Eosinophils Absolute Auto 0.1 X10*3/uL (0.0-0.4); Eosinophils Percent Auto 1.7 % (0-4); Hematocrit 40.9 % (37.0-47.0); Hemoglobin 13.8 g/dl (12.0-16.0); Imm Gran Abs Auto 0.02 X10*3/uL (0.00-0.03); Imm Gran Pct Auto 0.2 % (0.0-0.4); Lymphocytes Absolute Auto 3.1 X10*3/uL (1.2-4.9); Mean Corpuscular HGB Conc 33.7 g/dl (31.0-35.0); Mean Corpuscular Hemoglobin 29.7 pg (27.0-33.0); Mean Platelet Volume 8.7 fL (9.4-12.3); Monocytes Absolute Auto 0.7 X10*3/uL (0.1-1.2); Monocytes Percent Auto 7.7 % (2-11); Neutrophils Absolute Auto 4.5 x10*3/uL (2.0-8.3); Neutrophils Percent Auto 52.9 % (45-73); Platelet Count 274 X10*3/uL (160-400); Red Blood Count 4.65 X10*6/uL (4.20-5.50); White Blood Count 8.4 X10*3/uL (4.8-10.8)
[2023-06-27 18:34] LABS: INTERNATIONAL NORM RATIO 0.8 (0.9-1.1); Prothrombin Time 10.3 SEC (11.1-13.3)
[2023-06-27 18:42] LABS: Alanine Aminotransferase 26 U/L (0-31); Albumin Level 4.4 g/dL (3.5-5.0); Alkaline Phosphatase 93 U/L (39-117); Anion Gap 11 (12-20); Aspartate Amino Transferase 23 U/L (5-31); Bilirubin Direct 0.2 mg/dL (0.0-0.5); Bilirubin Total 0.5 mg/dL (0.0-1.0); Blood Urea Nitrogen 11 mg/dL (9-16); Calcium 10.3 mg/dL (8.4-10.2); Carbon Dioxide 29 mmol/L (22-29); Chloride 106 mmol/L (96-108); Creatinine Clr Calc Pharmacy 87.1; Estimated Glomerular Filt Rate > 60; Glucose Random 178 mg/dL (60-115); Potassium 3.9 mmol/L (3.3-5.1); Sodium 142 mmol/L (135-145); Total Protein 7.1 g/dL (6.5-8.0)
[2023-06-27 18:57] LABS: Troponin-I High Sensitivity < 2.7 ng/L (<3.5-17.0)
[2023-06-27 20:23] VITALS: BP 167/91; PULSE 82; RESP 18; TEMP 36.8; O2SAT 98
[2023-06-27 21:57] VITALS: BP 128/77; PULSE 80; RESP 18; TEMP 36.7; O2SAT 96
== END 2023-06-27 21:58 | disposition home or self-care (01) ==
PROVIDERS: Nurse Practitioner Family; Emergency Provider Internal Medicine; PCP Internal Medicine
DX: R20.0 Anesthesia of skin (principal); T50.995A Adverse effect of other drugs, medicaments and biological substances, initial encounter; Y92.9 Unspecified place or not applicable; L40.9 Psoriasis, unspecified; I10 Essential (primary) hypertension; E11.9 Type 2 diabetes mellitus without complications
CPT/HCPCS: 36415; 71046; 80048; 80076; 84484; 85025; 85610; 93005; 99283; 99284

== ENCOUNTER → 2023-06-27 18:05 | Outpatient (BNV) | payer OTHER, SELFPAY | PROVIDERS: Emergency Provider Internal Medicine; PCP Internal Medicine; Visit Provider Internal Medicine Cardiovascular Disease | DX: R07.9 Chest pain, unspecified (principal) | CPT/HCPCS: 93010 ==

== ENCOUNTER 2023-06-30 10:06 | Outpatient (AMB) | payer OTHER, SELFPAY ==
[2023-06-30 10:48] VITALS: BP 110/76; BMI 32.4
--- NOTE | 2023-06-30 10:48 | MHC.OFFVIS ---
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 She is doing well with concerns: External irritation/itching, currently sees Dr. Orr for her psoriasis and has clobetasol to use regularly for her vulvar psoriasis. Attempting to eat a healthy diet with calcium and vitamin D and stays active with exercise. Last mammogram; UTD. Colonoscopy is booked. FH breast and colon cancer. [facility] Medical History Hx of acute myeloid leukemia in remission Benign paroxysmal positional vertigo Hospital discharge follow-up Abscess Essential hypertension Diabetes mellitus Migraines Hand numbness Mild persistent asthma Impaired glucose tolerance Mild recurrent major depression Herpes simplex type 2 infection Mixed hyperlipidemia Supraventricular tachycardia Left leg pain GERD (gastroesophageal reflux disease) Insomnia Left knee pain Nausea Depression with anxiety Surgical History History of esophagogastroduodenoscopy (EGD) Hx of colonoscopy History of removal of cyst History of surgery History of total abdominal hysterectomy History of cardiac radiofrequency ablation Family History (Updated 06/30/23 @ 10:54 by REN Dugan) Father Brain cancer Mother Esophageal cancer Sister Breast cancer Paternal Uncle Diabetes Hypertension Sister Colon cancer Social History Household Members: Children Housing: House Do you presently have visiting nurse or other home services: Yes Alcohol intake: never Patient Tobacco Use Status: Never used Tobacco e-Cigarette/Vaping Use: Never Used Second Hand Smoke Exposure: No Advance Directives Date on File: 03/11/23 service: No Current occupational status: unemployed Sexual orientation: Straight/Heterosexual Gender identity: Female Cognitive needs: No Hearing needs: No Vision needs: No Female Reproductive History Menstrual Age of Menarche: 13 control method: permanent sterilization Total pregnancies: 3 Full term: 3 Number of Living Children: 3 Date of last pap smear: 09/21/10 (negative) Date of Mammogram: 11/18/22 Date of last Bone Density Screenin11/18/22 Review of Systems Const All systems reviewed & are unremarkable except as noted in HPI and below Reports as per HPI Eyes Reports no additional complaints ENT Reports no additional complaints Card Reports no additional complaints Resp Reports no additional complaints GI Reports as per HPI and Reports no additional complaints Reports as per HPI Musc Reports no additional complaints Skin/Breast Reports as per HPI Neuro Reports no additional complaints Psych Reports no additional complaints Endo Reports no additional complaints Zak/Lymph Reports no additional complaints Aller/Immun Reports no additional complaints Physical Exam Vital Signs: Last Vital Signs BP 110/76 06/30/23 10:48 BMI result Body Mass Index 32.4 Const General: cooperative, healthy appearing, no acute distress, well developed and alert Orientation/consciousness: patient oriented x3 HEENT Head: Yes normal to inspection Eyes General: appearance normal, both eyes and all related structures Neck Neck: Yes normal visual inspection Thyroid: Thyroid normal Chest Chest palpation & inspection: normal inspection of the chest and other (no puckering, dimpling, peau de orange, retraction, discharge, masses) Breast/axilla inspection: normal inspection of the breasts Breast/axilla palpation: normal palpation of the breasts Resp Effort & Inspection: normal respiratory effort GI Inspection: Yes normal to inspection Palpation (GI): Soft to palpation Rectal Exam - Female: deferred Other: Psoriasis- bilateral labial extending to perianal region General: Yes bladder normal to palpation External Female Exam: normal external appearance and normal appearance of the urethra Speculum Exam - Vagina: normal appearance of the vagina, normal palpation, normal vaginal discharge and vagina atrophic Speculum Exam - Cervix: normal appearance of the cervix and Cervix absent (No lesions or nodules) Bimanual exam- vagina & uterus: normal bimanual exam, normal palpation, bladder normal to palpation and uterus absent Bimanual Exam- Adnexa, other: no masses Skin Other: Psoriasis scattered areas General skin exam: no rashes or lesions noted Rashes: no rashes Neuro General: patient oriented x3 Cognition (Neuro): normal cognition Extrem General: Yes normal to inspection Psych Attitude: cooperative Thought process: Normal thought process present Assessment & Plan Assessment & Plan (1) Encounter for well woman exam with routine gynecological exam: Code(s): Z01.419 - Encounter for gynecological examination (general) (routine) without abnormal findings Plan Discussed: Current recommendations for pap smears per ASCCP guidelines. Breast awareness, periodic self breast exams and yearly mammogram. Maintain a healthy lifestyle, well balanced diet including Calcium 1,200 mg and Vitamin D 600 IU daily, and routine exercise. Follow up with Dr. Shi for her skin care. BV panel obtained as a rule out for any underlying yeast. Await results for treatment plan if indicated. Patient verbalizes understanding and agrees to the plan of care. She was given opportunity to ask questions and all questions were answered to the best of my ability. 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 This note is constructed using voice recognition software. While every effort has been made to ensure accuracy, shell coremaker errors may have been included. Coding Level of Care Code Est Pt Prev Care 40-64y(60665) Diagnoses Encounter for well woman exam with routine gynecological exam Z01.419
== END 2023-06-30 11:14 | disposition home or self-care (01) ==
PROVIDERS: PCP Internal Medicine; Visit Provider Advanced Practice Midwife
DX: Z01.419 Encounter for gynecological examination (general) (routine) without abnormal findings (principal)
CPT/HCPCS: 99396

== ENCOUNTER 2023-06-30 10:06 | Outpatient (REF) | payer OTHER, SELFPAY ==
[2023-07-01 12:49] LABS: BV Int Neg Control Negative (Negative); BV Int Pos Control Positive (Positive)
== END 2023-06-30 10:07 | disposition home or self-care (01) ==
LOC: HO.LNP 10:06
PROVIDERS: PCP Internal Medicine; Visit Provider Advanced Practice Midwife
DX: Z01.419 Encounter for gynecological examination (general) (routine) without abnormal findings (principal); N89.8 Other specified noninflammatory disorders of vagina
CPT/HCPCS: 87480; 87510; 87660

== ENCOUNTER 2023-07-20 11:06 | Outpatient (REF) | payer OTHER, SELFPAY ==
[2023-07-20 12:02] LABS: MANUAL DIFF FLAG NO
[2023-07-20 12:33] LABS: Basophils Percent Auto 0.5 % (0-2); Eosinophils Absolute Auto 0.2 X10*3/uL (0.0-0.4); Eosinophils Percent Auto 1.8 % (0-4); Hematocrit 43.9 % (37.0-47.0); Hemoglobin 14.5 g/dl (12.0-16.0); Imm Gran Abs Auto 0.03 X10*3/uL (0.00-0.03); Imm Gran Pct Auto 0.4 % (0.0-0.4); Lymphocytes Absolute Auto 2.5 X10*3/uL (1.2-4.9); Lymphocytes Percent Auto 29.2 % (20-40); Mean Corpuscular Hemoglobin 29.5 pg (27.0-33.0); Mean Corpuscular Volume 89.4 fL (80.0-98.0); Mean Platelet Volume 8.6 fL (9.4-12.3); Monocytes Absolute Auto 0.6 X10*3/uL (0.1-1.2); Monocytes Percent Auto 7.4 % (2-11); Neutrophils Absolute Auto 5.1 x10*3/uL (2.0-8.3); Neutrophils Percent Auto 60.7 % (45-73); Platelet Count 295 X10*3/uL (160-400); Red Blood Count 4.91 X10*6/uL (4.20-5.50); Red Cell Distribution Width 14.1 % (11.0-16.0); White Blood Count 8.4 X10*3/uL (4.8-10.8)
[2023-07-20 12:52] LABS: Alanine Aminotransferase 23 U/L (0-31); Albumin Level 4.6 g/dL (3.5-5.0); Alkaline Phosphatase 82 U/L (39-117); Anion Gap 14 (12-20); Aspartate Amino Transferase 19 U/L (5-31); Bilirubin Total 0.6 mg/dL (0.0-1.0); Blood Urea Nitrogen 11 mg/dL (9-16); Calcium 10.6 mg/dL (8.4-10.2); Carbon Dioxide 23 mmol/L (22-29); Chloride 106 mmol/L (96-108); Cholesterol 182 mg/dL (<200); Estimated Glomerular Filt Rate > 60; Glucose Random 93 mg/dL (60-115); HDL Cholesterol 58 mg/dL (>40); LDL Cholesterol Calculated 67 mg/dL (<100); Potassium 4.1 mmol/L (3.3-5.1); Sodium 139 mmol/L (135-145); Total Protein 7.3 g/dL (6.5-8.0); Triglycerides 285 mg/dL (<150)
[2023-07-20 13:07] LABS: Reflex LDLD? No
[2023-07-21 08:24] LABS: HBS Num1 0.54 mIU/mL (0-7.99); HBc Num1 0.11 S/CO (0.00-0.79); Hepatitis B Core Antibody Nonreactive (Nonreactive); Hepatitis B Surface Antigen Negative (Negative); ~HepC Num1 0.08 S/CO (0.00-0.79); ~Hepatitis B Surface Antibody NONREACTIVE (Nonreactive); ~Hepatitis C Antibody Nonreactive (Nonreactive)
[2023-07-23 07:24] LABS: TS Negative Control Passed; TS Panel A 0; TS Panel B 0; TS Positive Control Passed; TSpotTB Negative (Negative)
== END 2023-07-20 11:07 | disposition home or self-care (01) ==
LOC: HO.LAB 11:06
PROVIDERS: PCP Internal Medicine; Visit Provider Dermatology
DX: L40.0 Psoriasis vulgaris (principal)
CPT/HCPCS: 36415; 80053; 80061; 85025; 86481; 86704; 86706; 86803; 87340

== ENCOUNTER 2023-07-22 13:14 | Outpatient (AMB) | payer OTHER, SELFPAY ==
--- NOTE | 2023-07-22 14:01 | A.OFFVIS_ITS ---
Vital Signs 07/22/23 14:02 Height 5 ft 7 in Weight 209 lb 7.026 oz BMI 32.8 BP 128/72 Blood Pressure Location Lt brachial Position Sitting Pulse 104 H Pulse Source Pulse Oximeter Intake Visit Reasons: Pt request palpitations Filing Or Registry Clerk Required: Yes Filing Or Registry Clerk Language: Home Office Claims Examiner Name: brad delgado [id number] Allergies bee pollen [BEE STINGS] Allergy (Intermediate, Verified 07/22/23 14:03) RASH SWELLING PAIN FULL. phentermine Allergy (Intermediate, Verified 07/22/23 14:03) ANXIETY tramadol Allergy (Intermediate, Verified 07/22/23 14:03) stomach upset adhesive tape [ADHESIVE TAPE] Allergy (Mild, Verified 07/22/23 14:03) RASH oxycodone [OXYCODONE] Adverse Reaction (Intermediate, Verified 07/22/23 14:03) VOMITING apremilast [From Otezla] Adverse Reaction (Verified 07/22/23 14:03) diarrhea, nausea Medication List - Last Reconciled 07/22/23 by GERARD Concepcion bisacodyl 5 mg PO BEDTIME 90 days blood sugar diagnostic ([employer] Ultra Test strips) Use 1 test strip once a day blood-glucose meter ([employer]uch Ultra2 Meter) As directed cholecalciferol (vitamin D3) 25 mcg PO DAILY dulaglutide (Trulicity) 1.5 mg (0.5 mL) subcut TH empagliflozin (Jardiance) 10 mg PO DAILY 90 days fenofibrate 54 mg PO DAILY fluticasone propion-salmeterol 115-21 mcg/actuation (Advair HFA) 2 puffs PO BID ipratropium bromide 2 sprays intranasal TID-QID PRN 30 days lancets (Boxaroo for eBayTouch UltraSoft 2 Lancet) Use 1 lancet once a day loratadine 10 mg PO DAILY PRN lorazepam 1 mg PO TID PRN meclizine 25 mg PO Q6H PRN metformin 850 mg PO DAILY nebulizers (Aeroneb Go Nebulizer) As directed omalizumab (Xolair) 300 mg subcut Q4W 28 days omeprazole 20 mg PO DAILY ondansetron 4 mg PO Q8H PRN paroxetine HCl 20 mg PO DAILY paroxetine HCl 10 mg PO QAM peg-electrolyte soln 420 gram 240 mL PO Q10M polyethylene glycol 3350 (Miralax) 17 grams PO DAILY rosuvastatin 20 mg PO BEDTIME 90 days triamcinolone acetonide 0.1% topical zolpidem 10 mg PO BEDTIME PRN HPI HPI Pt request palpitations: Details: Simi is a 58-year-old female past medical history of hypertension, hyperlipidemia, diabetes, obesity, SVT who presents for follow-up. Since her last visit she was [place] [facility] [place]. She reported her left side felt weird . An MRI of the brain showed no acute abnormalities. Today she reports that she has been getting heart palpitations recently lasting 5-10 minutes and occurring singly once a week. He states overall this is more so then what she had been getting in the past. No lightheadedness, presyncope, syncope, falls. No chest discomfort at rest or with activity. She has chronic shortness of breath with exertion which she states is unchanged. No PND, orthopnea or edema. Tolerates normal ADLs without concerning difficulty. Takes meds as directed. 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 [facility] Medical History Hx of acute myeloid leukemia in remission Benign paroxysmal positional vertigo Hospital discharge follow-up Abscess Essential hypertension Diabetes mellitus Migraines Hand numbness Mild persistent asthma Impaired glucose tolerance Mild recurrent major depression Herpes simplex type 2 infection Mixed hyperlipidemia Supraventricular tachycardia Left leg pain GERD (gastroesophageal reflux disease) Insomnia Left knee pain Nausea Depression with anxiety Surgical History History of esophagogastroduodenoscopy (EGD) Hx of colonoscopy History of removal of cyst History of surgery History of total abdominal hysterectomy History of cardiac radiofrequency ablation Family History Father Brain cancer Mother Esophageal cancer Sister Breast cancer Paternal Uncle Diabetes Hypertension Sister Colon cancer Social History Household Members: Children Housing: House Do you presently have visiting nurse or other home services: Yes Alcohol intake: never Patient Tobacco Use Status: Never used Tobacco e-Cigarette/Vaping Use: Never Used Second Hand Smoke Exposure: No Advance Directives Date on File: 03/11/23 service: No Current occupational status: unemployed Sexual orientation: Straight/Heterosexual Gender identity: Female Cognitive needs: No Hearing needs: No Vision needs: No Female Reproductive History Menstrual Age of Menarche: 13 Review of Systems Const All systems reviewed & are unremarkable except as noted in HPI and below ENT Denies dizziness Card Denies chest pain, Denies chest pain at rest, Denies chest pain with activity, Reports rapid heart rate, Denies pedal edema, Denies edema, Denies leg edema, Denies lightheadedness, Denies palpitations, Denies dyspnea, Denies dyspnea on exertion and Denies orthopnea Resp Denies cough, Denies dyspnea and Denies dyspnea on exertion GI Denies hematochezia and Denies change in stool character Musc Denies abnormal gait, Denies limited range of motion, Denies muscle cramps, Denies muscle weakness, Denies numbness, Denies radiating pain into limb, Denies stiffness and Denies tingling Neuro Denies abnormal gait, Denies dizziness, Denies numbness and Denies tingling Endo Denies palpitations Physical Exam Vital Signs: Last Vital Signs Pulse 104 H 07/22/23 14:02 BP 128/72 07/22/23 14:02 BMI result Body Mass Index 32.8 Const General: cooperative, healthy appearing, comfortable and no acute distress Orientation/consciousness: patient oriented x3 Neck Neck: Yes normal visual inspection Resp Effort & Inspection: normal respiratory effort Auscultation: clear to auscultation bilaterally, no crackles, no rales, no rhonchi and no wheezes Cardio Jugular venous distension: no JVD Rate: regular rate Rhythm: regular rhythm Heart sounds: S1 normal heart sound present, S2 normal heart sound present, no gallops, no murmurs and no rubs Peripheral pulses: Peripheral pulses 2+ throughout Neuro General: patient oriented x3 Extrem General: Yes normal to inspection and No no pedal edema Psych Appearance: grossly normal Mental Status: mental status grossly normal Speech and movement: Normal speech and movement present Assessment & Plan Assessment & Plan (1) Supraventricular tachycardia: Code(s): I47.1 - Supraventricular tachycardia Category: Medical Plan: History of supraventricular tachycardia. No recent documented episodes. On last visit she reported only occasional heart palpitations lasting only seconds. Now she is reporting episodes lasting 5-10 minutes and occurring approximately once a week. Last echo 05/18/2021 showed EF 57%, [id number] focal hypertrophy of the basal septum, grade 1 diastolic dysfunction. She has not having palpitations at this time. Her last EKG showed normal sinus rhythm with no acute ST or T-wave abnormalities, normal NM interval, rate 88. She had not been on rate slowing medications. At this time will start metoprolol XL 25 mg daily. Will order Holter monitor to assess for SVT or other arrhythmia. Informed to avoid caffeinated beverages, maintain good hydration and activity as tolerated. Cardiology follow-up 6 weeks, sooner if needed. (2) Essential hypertension: Code(s): I10 - Essential (primary) hypertension Category: Medical Plan: Well controlled at present. Adding metoprolol. (3) Hyperlipidemia LDL goal <70: Code(s): E78.5 - Hyperlipidemia, unspecified Category: Medical Plan: Holiday LDL goal less than 70 in patient with diabetes. Labs done 09/22/2022 shows LDL 78. She is on rosuvastatin 20 mg daily. Benefits of weight loss and increasing physical activity reviewed with her. Primarily followed by her PCP (4) Diabetes mellitus: Code(s): E11.9 - Type 2 diabetes mellitus without complications Category: Medical Qualifiers: Diabetes mellitus complication status: without complication Diabetes mellitus lean specialist insulin use: without retirement use Diabetes mellitus type: type 2 Qualified Code(s): E11.9 - Type 2 diabetes mellitus without complications Plan: Hemoglobin A1c goal less than 7. Followed by PCP (5) Palpitation: Code(s): R00.2 - Palpitations Category: Medical Plan: As above Plan Time spent on chart review, documentation, interview and assessment Orders: Orders ECG 3 day holter monitor 07/22/23 I47.1 - Supraventricular tachycardia, R00.2 - Palpitations Medications: New metoprolol succinate ER 25 mg PO DAILY 30 tabs 3RF Coding Level of Care Code Est Pt Level 3 (89292) Diagnoses Supraventricular tachycardia I47.1 Essential hypertension I10 Hyperlipidemia LDL goal <70 E78.5 Type 2 diabetes mellitus without complication, without long-term current use of insulin E11.9 Diabetes mellitus complication status: without complication Diabetes mellitus lean specialist insulin use: without retirement use Diabetes mellitus type: type 2 Palpitation R00.2 Time Spent (min) 24
[2023-07-22 14:02] VITALS: BP 128/72; PULSE 104; BMI 32.8
== END 2023-07-22 14:34 | disposition home or self-care (01) ==
PROVIDERS: PCP Internal Medicine; Visit Provider Nurse Practitioner Family
DX: I47.10 Supraventricular tachycardia, unspecified (principal); I10 Essential (primary) hypertension; E78.5 Hyperlipidemia, unspecified; E11.9 Type 2 diabetes mellitus without complications; R00.2 Palpitations
CPT/HCPCS: 99213

== ENCOUNTER → 2023-07-22 13:14 | Outpatient (BNVA) | payer OTHER, SELFPAY | PROVIDERS: PCP Internal Medicine; Visit Provider Nurse Practitioner Family | DX: I47.10 Supraventricular tachycardia, unspecified (principal); R00.2 Palpitations; I10 Essential (primary) hypertension; E11.9 Type 2 diabetes mellitus without complications; E78.5 Hyperlipidemia, unspecified | CPT/HCPCS: 99212 ==

== ENCOUNTER 2023-07-28 10:00 | Day surgery (SDC) | payer OTHER, SELFPAY ==
[2023-07-27 07:22] VITALS: BMI 32.9
--- NOTE | 2023-07-27 10:43 | HO.ANESPROP2 ---
Documented by User: Radha Dan NP 07/27/23 10:57 HPI - Anesthesia Eval Consult details Narrative: 58yo F for Colonoscopy s/p EGD with Dil 06/2022 with MAC [place] [facility] [place]. Last office visit 07/2023: History of supraventricular tachycardia. No recent documented episodes. On last visit she reported only occasional heart palpitations lasting only seconds. Now she is reporting episodes lasting 5-10 minutes and occurring approximately once a week. Last echo 05/18/2021 showed EF 57%, [id number] focal hypertrophy of the basal septum, grade 1 diastolic dysfunction. She has not having palpitations at this time. Her last EKG showed normal sinus rhythm with no acute ST or T-wave abnormalities, normal [place] interval, rate 88. She had not been on rate slowing medications. At this time will start metoprolol XL 25 mg daily. Will order Holter monitor to assess for SVT or other arrhythmia. Informed to avoid caffeinated beverages, maintain good hydration and activity as tolerated. Anesthesia Pre-Procedure Meds Is the patient on any of the following meds?: GLP1/DPP4 and SGLT2 Inhib PMFSH Active Problems Active Problems: All Active Problems Palpitation (Acute) Psoriasis (Acute) TIA (transient ischemic attack) (Acute) Left facial numbness (Acute) Weakness (Acute) Esophagitis (Acute) Constipation by delayed colonic transit (Acute) Bone pain (Acute) Right hand pain (Acute) Left hand pain (Acute) Bilateral hand pain (Acute) Gastrointestinal food allergy (Acute) Food allergy (Acute) SOB (shortness of breath) on exertion (Acute) Asthma (Acute) Environmental allergies (Acute) Post covid-19 condition, unspecified (Acute) Abnormal nuclear cardiac imaging test (Acute) Abnormal EKG (Acute) Hypomagnesemia (Acute) Physical exam (Acute) Left sciatic nerve pain (Acute) Hyperlipidemia LDL goal <70 (Acute) Allergic reaction (Acute) Left foot pain (Acute) Right foot pain (Acute) Encounter for annual routine gynecological examination (Acute) Sinusitis (Acute) Hospital discharge follow-up (Acute) Abscess (Acute) Essential hypertension (Acute) Diabetes mellitus (Acute) Migraines (Acute) Hand numbness (Acute) Mild persistent asthma (Acute) Mild recurrent major depression (Acute) Herpes simplex type 2 infection (Acute) Mixed hyperlipidemia (Acute) Supraventricular tachycardia (Acute) Left leg pain (Acute) GERD (gastroesophageal reflux disease) (Acute) Insomnia (Acute) Left knee pain (Acute) Nausea (Acute) Depression with anxiety (Acute) Past Medical History Medical History Hx of acute myeloid leukemia in remission Benign paroxysmal positional vertigo Hospital discharge follow-up Abscess Essential hypertension Diabetes mellitus Migraines Hand numbness Mild persistent asthma Impaired glucose tolerance Mild recurrent major depression Herpes simplex type 2 infection Mixed hyperlipidemia Supraventricular tachycardia Left leg pain GERD (gastroesophageal reflux disease) Insomnia Left knee pain Nausea Depression with anxiety Family History Family History Father Brain cancer Mother Esophageal cancer Sister Breast cancer Paternal Uncle Diabetes Hypertension Sister Colon cancer Family history of problems with anesthesia: No Surgical History Surgical History History of esophagogastroduodenoscopy (EGD) Hx of colonoscopy History of removal of cyst History of surgery History of total abdominal hysterectomy History of cardiac radiofrequency ablation History of Problems with Anesthesia: No Social History Social History Household Members: Children Housing: House Do you presently have visiting nurse or other home services: Yes Alcohol intake: never Patient Tobacco Use Status: Never used Tobacco e-Cigarette/Vaping Use: Never Used Second Hand Smoke Exposure: No Use of substances other than those prescribed or required for medical reasons: No Are you DNR?: No Advance Directives: No Advance Directives Information Provided: Yes Advance Directives Date on File: 03/11/23 service: No Current occupational status: unemployed Sexual orientation: Straight/Heterosexual Gender identity: Female Cognitive needs: No Hearing needs: No Vision needs: No Meds Allergies Allergy/AdvReac Type Severity Reaction Status Date / Time bee pollen [BEE STINGS] Allergy Intermediate RASH Verified 07/28/23 11:23 SWELLING PAIN FULL. phentermine Allergy Intermediate ANXIETY Verified 07/28/23 11:23 tramadol Allergy Intermediate stomach Verified 07/28/23 11:23 upset adhesive tape [ADHESIVE TAPE] Allergy Mild RASH Verified 07/28/23 11:23 oxycodone [OXYCODONE] AdvReac Intermediate VOMITING Verified 07/28/23 11:23 apremilast [From Otezla] AdvReac diarrhea, Verified 07/28/23 11:23 nausea Home Medications ?Medication ?Instructions ?Recorded ?Confirmed ?Last Taken ?Type lorazepam 1 mg tablet 1 mg PO TID PRN Anxiety 02/13/20 07/28/23 Unknown History zolpidem 10 mg tablet 10 mg PO BEDTIME PRN Insomnia 02/13/20 07/28/23 03/09/22 History fluticasone propionate 115 2 puff PO BID 05/06/21 07/28/23 03/09/22 History mcg-salmeterol 21 mcg/actuation HFA inhaler (Advair HFA) loratadine 10 mg tablet 10 mg PO DAILY PRN Allergy Symptoms 08/09/22 07/28/23 Unknown History paroxetine HCl 10 mg tablet 10 mg PO QAM 08/09/22 07/28/23 03/09/22 History triamcinolone acetonide 0.1 % topical 06/20/23 07/22/23 Unknown History topical ointment paroxetine HCl 40 mg tablet 20 mg PO DAILY 06/30/23 07/28/23 Unknown History Exam Height,Weight and Vital Signs: Height 5 ft 7 in Weight 95.254 kg Pertinent Lab Results Pertinent Lab Results: Laboratory Tests 07/20/23 12:01 WBC 8.4 Hgb 14.5 Hct 43.9 Plt Count 295 Sodium 139 Potassium 4.1 Chloride 106 Carbon Dioxide 23 BUN 11 Creatinine 0.71 Narrative Narrative: EKG 06/2023 Vent. Rate : 092 BPM Atrial Rate : 092 BPM P-R Int : 134 ms QRS Dur : 090 ms QT Int : 372 ms P-R-T Axes : 062 -03 021 degrees QTc Int : 460 ms Normal sinus rhythm Normal ECG When compared with ECG of 10-MAR-2023 09:11, No significant change was found ECHO 2021 Conclusions: - The left ventricular systolic function is normal. The calculated ejection fraction is 57% by biplane method. - Mild to moderate focal hypertrophy of the basal septum. - No obvious valvular pathology seen on this study. Assessment and Plan Assessment Anesthesia Assessment: Chart Reviewed Final Anesthetic Review Family History of Problems with Anesthesia: No History of Problems with Anesthesia: No Documented by User: Sylwia Baumann MD 07/28/23 12:11 [facility] Active Problems Active Problems: All Active Problems Palpitation (Acute) Psoriasis (Acute) TIA (transient ischemic attack) (Acute) Left facial numbness (Acute) Weakness (Acute) Esophagitis (Acute) Constipation by delayed colonic transit (Acute) Bone pain (Acute) Right hand pain (Acute) Left hand pain (Acute) Bilateral hand pain (Acute) Gastrointestinal food allergy (Acute) Food allergy (Acute) SOB (shortness of breath) on exertion (Acute) Asthma (Acute) Environmental allergies (Acute) Post covid-19 condition, unspecified (Acute) Abnormal nuclear cardiac imaging test (Acute) Abnormal EKG (Acute) Hypomagnesemia (Acute) Physical exam (Acute) Left sciatic nerve pain (Acute) Hyperlipidemia LDL goal <70 (Acute) Allergic reaction (Acute) Left foot pain (Acute) Right foot pain (Acute) Encounter for annual routine gynecological examination (Acute) Sinusitis (Acute) Hospital discharge follow-up (Acute) Abscess (Acute) Essential hypertension (Acute) Diabetes mellitus (Acute) Migraines (Acute) Hand numbness (Acute) Mild persistent asthma (Acute) Mild recurrent major depression (Acute) HeAQrpes simplex type 2 infection (Acute) Mixed hyperlipidemia (Acute) Supraventricular tachycardia (Acute) Left leg pain (Acute) GERD (gastroesophageal reflux disease) (Acute) Insomnia (Acute) Left knee pain (Acute) Nausea (Acute) Depression with anxiety (Acute) Past Medical History Medical History Hx of acute myeloid leukemia in remission Benign paroxysmal positional vertigo Hospital discharge follow-up Abscess Essential hypertension Diabetes mellitus Migraines Hand numbness Mild persistent asthma Impaired glucose tolerance Mild recurrent major depression Herpes simplex type 2 infection Mixed hyperlipidemia Supraventricular tachycardia Left leg pain GERD (gastroesophageal reflux disease) Insomnia Left knee pain Nausea Depression with anxiety Family History Family History Father Brain cancer Mother Esophageal cancer Sister Breast cancer Paternal Uncle Diabetes Hypertension Sister Colon cancer Surgical History Surgical History History of esophagogastroduodenoscopy (EGD) Hx of colonoscopy History of removal of cyst History of surgery History of total abdominal hysterectomy History of cardiac radiofrequency ablation Social History Social History Household Members: Children Housing: House Do you presently have visiting nurse or other home services: Yes Alcohol intake: never Patient Tobacco Use Status: Never used Tobacco e-Cigarette/Vaping Use: Never Used Second Hand Smoke Exposure: No Use of substances other than those prescribed or required for medical reasons: No Are you DNR?: No Advance Directives: No Advance Directives Information Provided: Yes Advance Directives Date on File: 03/11/23 service: No Current occupational status: unemployed Sexual orientation: Straight/Heterosexual Gender identity: Female Cognitive needs: No Hearing needs: No Vision needs: No Meds Allergies Allergy/AdvReac Type Severity Reaction Status Date / Time bee pollen [BEE STINGS] Allergy Intermediate RASH Verified 07/28/23 11:23 SWELLING PAIN FULL. phentermine Allergy Intermediate ANXIETY Verified 07/28/23 11:23 tramadol Allergy Intermediate stomach Verified 07/28/23 11:23 upset adhesive tape [ADHESIVE TAPE] Allergy Mild RASH Verified 07/28/23 11:23 oxycodone [OXYCODONE] AdvReac Intermediate VOMITING Verified 07/28/23 11:23 apremilast [From Otezla] AdvReac diarrhea, Verified 07/28/23 11:23 nausea Home Medications ?Medication ?Instructions ?Recorded ?Confirmed ?Last Taken ?Type lorazepam 1 mg tablet 1 mg PO TID PRN Anxiety 02/13/20 07/28/23 Unknown History zolpidem 10 mg tablet 10 mg PO BEDTIME PRN Insomnia 02/13/20 07/28/23 03/09/22 History fluticasone propionate 115 2 puff PO BID 05/06/21 07/28/23 03/09/22 History mcg-salmeterol 21 mcg/actuation HFA inhaler (Advair HFA) loratadine 10 mg tablet 10 mg PO DAILY PRN Allergy Symptoms 08/09/22 07/28/23 Unknown History paroxetine HCl 10 mg tablet 10 mg PO QAM 08/09/22 07/28/23 03/09/22 History triamcinolone acetonide 0.1 % topical 06/20/23 07/22/23 Unknown History topical ointment paroxetine HCl 40 mg tablet 20 mg PO DAILY 06/30/23 07/28/23 Unknown History
[2023-07-28 11:33] VITALS: BP 145/88; PULSE 98; RESP 18; TEMP 36.2; O2SAT 98; BMI 31.8
[2023-07-28 11:34] VITALS: BMI 31.8
[2023-07-28 11:50] LABS: Glucose, Whole Blood 119 mg/dL (60-115)
[2023-07-28] MEDS: Lactated Ringers 1,000 ML 100 ML IVCONT (12:13)
--- NOTE | 2023-07-28 12:16 | MHC.SHP ---
Pre-Procedural Eval Section A - 24 Hr Update-Section A only Date of Service: 07/28/23 Section B - Complete if H&P > 30 days Chief Complaint: Encounter for screening for malignant neoplasm of Relevant Family History (Specify if Yes): No Relevant Social History: None Present Medications: see Short Stay Collaborative assessment Medical History: Significant History (Hx of acute myeloid leukemia in remission Benign paroxysmal positional vertigo Hospital discharge follow-up Abscess Essential hypertension Diabetes mellitus Migraines Hand numbness Mild persistent asthma Impaired glucose tolerance Mild recurrent major depression Herpes simplex type 2 infection Mixed) History of Previous Operations: Relevant previous surgery/procedure and date(s) (History of esophagogastroduodenoscopy (EGD) Hx of colonoscopy History of removal of cyst History of surgery History of total abdominal hysterectomy History of cardiac radiofrequency ablation) Allergies: Allergies Allergy/AdvReac Type Severity Reaction Status Date / Time bee pollen [BEE STINGS] Allergy Intermediate RASH Verified 07/28/23 11:23 SWELLING PAIN FULL. phentermine Allergy Intermediate ANXIETY Verified 07/28/23 11:23 tramadol Allergy Intermediate stomach Verified 07/28/23 11:23 upset adhesive tape [ADHESIVE TAPE] Allergy Mild RASH Verified 07/28/23 11:23 oxycodone [OXYCODONE] AdvReac Intermediate VOMITING Verified 07/28/23 11:23 apremilast [From Otezla] AdvReac diarrhea, Verified 07/28/23 11:23 nausea Review of Systems Sugical H&P ROS: Negative: Constitution, Cardiovascular, Respiratory, Neurological, Psychiatric, Hem-Onc, Allergic/Immunologic, Gastrointestinal, Genitourinary, Musculoskeletal, Integumentary, Endocrine and Eyes/Ears/Nose/Throat Exam Surgical H&P Exam: Normal: HEENT, Normal: Heart, Normal: Lungs, Normal: Extremities, Normal: Abdomen, Normal: Skin and Normal: Neurological Plan Diagnosis/Plan: Unchanged I have reviewed the history and physical and performed a pertinent physical examination on my patient. No changes have occurred unless specified. Time Spent With Patient Time: Total time managing care of this patient today ____ minutes.
--- NOTE | 2023-07-28 12:18 | HO.OPN-COLON ---
Colonoscopy Operative Note Operative Note Date of Service: 07/28/23 Narrative: Operative Information Procedure Description: Colonoscopy Indication: screening Anesthesia: MAC COLONOSCOPY Instrument: Olympus variable stiffness pediatric scope 190L Colonoscopy Monitoring: Vital signs and clinical assessment, continuous EKG monitoring, Pulse oximetry, Carbon Dioxide monitoring and blood pressure monitoring were done throughout the procedure. Colon withdrawal time was 7 minutes. Procedure: The patient was placed in the left lateral decubitis position and pre-procedure medications were administered. After a digital rectal examination of the ano-rectum, the video colonoscope was inserted into the rectum and advanced through the colon to the cecum/TI. The colonoscope was slowly withdrawn in a retrograde panoramic fashion and the colon mucosa was carefully examined including a retroflexed view of the rectum. Findings and interventions are described below. Procedure Difficulty: easy Findings: Terminal Ileum-normal Cecum:normal Ascending Colon: normal Transverse Colon -normal Descending Colon:normal Sigmoid Colon: normal Rectum: Retroflexion with small internal hemorrhoids seen, grade I Anorectum - normal Intervention: none Colon preparation: [place] Bowel Preparation Scale Right colon; 2 Transverse colon: 2 Left colon; 2 (0 = Unprepared colon segment with mucosa not seen due to solid stool that cannot be cleared. 1 = Portion of mucosa of the colon segment seen, but other areas of the colon segment not well seen due to staining, residual stool and/or opaque liquid. 2 = Minor amount of residual staining, small fragments of stool and/or opaque liquid, but mucosa of colon segment seen well. 3 = Entire mucosa of colon segment seen well with no residual staining, small fragments of stool or opaque liquid) Impression and Post Procedure Diagnosis: internal hemorrhoids Plan: High fiber diet leaflet Avoid straining at stool, epsom salts and sitz bath, anusol supps or cream Repeat Colonoscopy in 10 years or earlier if clinically indicated Above findings were reviewed with the patient and relevant handouts were provided if indicated.
[2023-07-28 12:55] VITALS: BP 96/63; PULSE 99; RESP 16; TEMP 36.6; O2SAT 95
[2023-07-28 13:10] VITALS: BP 112/71; PULSE 96; RESP 18; TEMP 36.6; O2SAT 97
== END 2023-07-28 13:42 | disposition home or self-care (01) ==
PROVIDERS: PCP Internal Medicine; Visit Provider Internal Medicine Gastroenterology
PROC: 0DJD8ZZ Inspection of Lower Intestinal Tract, Via Natural or Artificial Opening Endoscopic (ICD-10-PCS; CPT 45378; principal; 2023-07-28 12:20)
DX: Z12.11 Encounter for screening for malignant neoplasm of colon (principal); K64.0 First degree hemorrhoids; Z86.010 Personal history of colon polyps; E11.9 Type 2 diabetes mellitus without complications; I10 Essential (primary) hypertension; J45.30 Mild persistent asthma, uncomplicated; K21.9 Gastro-esophageal reflux disease without esophagitis; C92.01 Acute myeloblastic leukemia, in remission; F33.9 Major depressive disorder, recurrent, unspecified; Z86.73 Personal history of transient ischemic attack (TIA), and cerebral infarction without residual deficits; Z79.899 Other long term (current) drug therapy; Z79.02 Long term (current) use of antithrombotics/antiplatelets; Z79.84 Long term (current) use of oral hypoglycemic drugs; Z79.85 Long-term (current) use of injectable non-insulin antidiabetic drugs
CPT/HCPCS: G0105; 82947; J2250; J2704

== ENCOUNTER → 2023-07-28 10:00 | Outpatient (BNV) | payer OTHER, SELFPAY | PROVIDERS: PCP Internal Medicine; Visit Provider Internal Medicine Gastroenterology | DX: Z12.11 Encounter for screening for malignant neoplasm of colon (principal); Z86.010 Personal history of colon polyps; K64.0 First degree hemorrhoids | CPT/HCPCS: G0105 ==

== ENCOUNTER 2023-08-09 08:55 | Outpatient (AMB) | payer OTHER, SELFPAY ==
[2023-08-09 09:56] VITALS: BP 110/70; PULSE 88; TEMP 36.6; O2SAT 98; BMI 31.8
--- NOTE | 2023-08-09 09:56 | MHC.OFFWIV ---
Intake Vital Signs 08/09/23 09:56 Height 5 ft 7 in Weight 203 lb BMI 31.8 BP 110/70 Blood Pressure Location Rt femoral Pulse 88 Pulse Source Pulse Oximeter Temp 97.8 F Temp Source Temporal Artery Scan Pulse Oximetry (%) 98 Oxygen Delivery Method Room Air Intake Visit Reasons: EP left ear hearing loss sinus congestion Intake Note: pt is here for left ear hearing loss for a week Patient Tobacco Use Status: Never used Tobacco Allergies bee pollen [BEE STINGS] Allergy (Intermediate, Verified 08/09/23 10:09) RASH SWELLING PAIN FULL. phentermine Allergy (Intermediate, Verified 08/09/23 10:09) ANXIETY tramadol Allergy (Intermediate, Verified 08/09/23 10:09) stomach upset adhesive tape [ADHESIVE TAPE] Allergy (Mild, Verified 08/09/23 10:09) RASH oxycodone [OXYCODONE] Adverse Reaction (Intermediate, Verified 08/09/23 10:09) VOMITING apremilast [From Otezla] Adverse Reaction (Verified 08/09/23 10:09) diarrhea, nausea Do you need a note to return to daycare/school/sports/work: No HPI HPI Comments History of Present Illness Details Pt is a 58 year old female c/o a few days of decreased hearing. She states this is mostly in her left ear and voices sound muffled. She denies any fever cough but does admit to some congestion and fevers about 2 weeks ago. She denies any pain, numbness or tingling in her face or around her ear. [facility] Medical History Hx of acute myeloid leukemia in remission Benign paroxysmal positional vertigo Hospital discharge follow-up Abscess Essential hypertension Diabetes mellitus Migraines Hand numbness Mild persistent asthma Impaired glucose tolerance Mild recurrent major depression Herpes simplex type 2 infection Mixed hyperlipidemia Supraventricular tachycardia Left leg pain GERD (gastroesophageal reflux disease) Insomnia Left knee pain Nausea Depression with anxiety Surgical History History of esophagogastroduodenoscopy (EGD) Hx of colonoscopy History of removal of cyst History of surgery History of total abdominal hysterectomy History of cardiac radiofrequency ablation Family History Father Brain cancer Mother Esophageal cancer Sister Breast cancer Paternal Uncle Diabetes Hypertension Sister Colon cancer Social History Household Members: Children Housing: House Do you presently have visiting nurse or other home services: Yes Alcohol intake: never Patient Tobacco Use Status: Never used Tobacco e-Cigarette/Vaping Use: Never Used Second Hand Smoke Exposure: No Advance Directives Date on File: 03/11/23 service: No Current occupational status: unemployed Sexual orientation: Straight/Heterosexual Gender identity: Female Cognitive needs: No Hearing needs: No Vision needs: No Female Reproductive History Menstrual Age of Menarche: 13 Review of Systems Const All systems reviewed & are unremarkable except as noted in HPI and below Physical Exam Vital Signs: Last Vital Signs Temp 97.8 F 08/09/23 09:56 Pulse 88 08/09/23 09:56 BP 110/70 08/09/23 09:56 Pulse Ox 98 08/09/23 09:56 Oxygen Delivery Method Room Air 08/09/23 09:56 BMI result Body Mass Index 31.8 Const General: cooperative, healthy appearing, comfortable and no acute distress Nutritional Appearance: average body habitus Orientation/consciousness: patient oriented x3 Limitations: no limitations HEENT Head: Yes normal to inspection, Yes normocephalic and Yes atraumatic Ears: external ears normal, TM normal on the right and TM abnormal (left) wth effusion serous on the left, erythematous on the left and with loss of landmarks on the left General nose exam: Normal external nose present Face and sinus: Yes normal facial exam, Yes sinuses nontender and No edema Mouth: Normal oral and palatal mucosa present Throat: Yes posterior oropharynx normal Eyes General: appearance normal, both eyes and all related structures Resp Effort & Inspection: normal respiratory effort and able to speak in complete sentences Neuro General: patient oriented x3 Assessment & Plan Assessment & Plan (1) Congestion of left ear: Code(s): H93.8X2 - Other specified disorders of left ear Plan: pred 20mg x 5days, f/u with PCP if no improvement after steroid. May need to see ENT. (2) Hearing loss in left ear: Code(s): H91.92 - Unspecified hearing loss, left ear Qualifiers: Hearing loss type: unspecified Qualified Code(s): H91.92 - Unspecified hearing loss, left ear Plan: pred 20mg x 5days, f/u with PCP if no improvement after steroid. May need to see ENT. Medications: New prednisone 20 mg PO DAILY 5 tabs 0RF Coding Level of Care Code Est Pt Level 2 (32725) Diagnoses Congestion of left ear H93.8X2 Hearing loss of left ear, unspecified hearing loss type H91.92 Hearing loss type: unspecified Time Spent (min) 15
== END 2023-08-09 10:21 | disposition home or self-care (01) ==
PROVIDERS: PCP Internal Medicine; Visit Provider Physician Assistant
DX: H91.92 Unspecified hearing loss, left ear (principal); H93.8X2 Other specified disorders of left ear
CPT/HCPCS: 99213

== ENCOUNTER → 2023-10-03 08:26 | Outpatient (REF) | payer OTHER, SELFPAY | LOC: HO.CARD 08:26 | PROVIDERS: PCP Internal Medicine; Visit Provider Nurse Practitioner Family | DX: R00.2 Palpitations (principal); I47.10 Supraventricular tachycardia, unspecified | CPT/HCPCS: 93242 ==

== ENCOUNTER 2023-10-10 07:45 | Outpatient (AMB) | payer OTHER, SELFPAY ==
[2023-10-10 07:51] VITALS: BP 124/82; PULSE 99; O2SAT 97; BMI 33.2
--- NOTE | 2023-10-10 07:51 | MHC.PC.OV ---
Vital Signs 10/10/23 07:51 Height 5 ft 7 in Weight 212 lb BMI 33.2 BP 124/82 Blood Pressure Location Lt brachial Position Sitting Pulse 99 Pulse Source Pulse Oximeter Pulse Oximetry (%) 97 Oxygen Delivery Method Room Air Intake Visit Reasons: PE Motor Installer Required: No Accompanied by: Self / Same As Patient Allergies bee pollen [BEE STINGS] Allergy (Intermediate, Verified 10/10/23 08:05) RASH SWELLING PAIN FULL. phentermine Allergy (Intermediate, Verified 10/10/23 08:05) ANXIETY tramadol Allergy (Intermediate, Verified 10/10/23 08:05) stomach upset adhesive tape [ADHESIVE TAPE] Allergy (Mild, Verified 10/10/23 08:05) RASH oxycodone [OXYCODONE] Adverse Reaction (Intermediate, Verified 10/10/23 08:05) VOMITING apremilast [From Otezla] Adverse Reaction (Verified 10/10/23 08:05) diarrhea, nausea Medication List - Last Reconciled 10/10/23 by Kayy Aburto MD benzonatate 100 mg PO BID PRN 5 days blood sugar diagnostic ([employer] Ultra Test strips) Use 1 test strip once a day blood-glucose meter ([employer] Ultra2 Meter) As directed dulaglutide (Trulicity) 1.5 mg (0.5 mL) subcut TH empagliflozin (Jardiance) 10 mg PO DAILY 90 days fenofibrate 54 mg PO DAILY fluticasone propion-salmeterol 115-21 mcg/actuation (Advair HFA) 2 puffs PO BID ipratropium bromide 2 sprays intranasal TID-QID PRN 30 days lancets (TravergenceTouch UltraSoft 2 Lancet) Use 1 lancet once a day loratadine 10 mg PO DAILY PRN lorazepam 1 mg PO TID PRN meclizine 25 mg PO Q6H PRN metformin 850 mg PO DAILY metoprolol succinate ER 25 mg PO DAILY nebulizers (Aeroneb Go Nebulizer) As directed omalizumab (Xolair) 300 mg subcut Q4W 28 days omeprazole 20 mg PO DAILY ondansetron 4 mg PO Q8H PRN paroxetine HCl 20 mg PO DAILY paroxetine HCl 10 mg PO QAM rosuvastatin 20 mg PO BEDTIME 90 days triamcinolone acetonide 0.1% topical zolpidem 10 mg PO BEDTIME PRN Tobacco use date assessed: 03/16/23 Dental Screening Dental Screen Date: 10/10/23 Did you have a dental visit in the last 12 months?: Yes Did you have a dental problem in the last 6 months where you did not have access to dental care?: No Was dental information given to patient?: Patient has dentist HPI HPI Comments History of Present Illness Details This is a 58-year-old female with mild recurrent major depression, supraventricular tachycardia, diabetes mellitus type 2 and acute myeloid leukemia in remission that comes for her physical exam. Depression follow by Psychiatry. Supraventricular tachycardia follow by cardiology. A1c within goal. Last diabetic eye exam was 2023. CBC will be order to check AML in remission. Mammogram done less than a year ago and was normal. No need for Pap smear due to hysterectomy for benign reasons. Colonoscopy done 2023. Bone density done 2022 showing osteopenia and next bone density should be 2024. Denies any acute complaint. [facility] Medical History (Updated 10/10/23 @ 08:17 by Kayy Aburto MD) Hx of acute myeloid leukemia in remission Benign paroxysmal positional vertigo Hospital discharge follow-up Abscess Essential hypertension Diabetes mellitus Migraines Hand numbness Mild persistent asthma Impaired glucose tolerance Mild recurrent major depression Herpes simplex type 2 infection Mixed hyperlipidemia Supraventricular tachycardia Left leg pain GERD (gastroesophageal reflux disease) Insomnia Left knee pain Nausea Depression with anxiety Surgical History History of esophagogastroduodenoscopy (EGD) Hx of colonoscopy History of removal of cyst History of surgery History of total abdominal hysterectomy History of cardiac radiofrequency ablation Family History (Updated 10/10/23 @ 08:22 by Kayy Aburto MD) Father Brain cancer Mother Esophageal cancer Sister Breast cancer Paternal Uncle Diabetes Hypertension Sister Colon cancer, Onset Age: 63 Social History Household Members: Children Housing: House Do you presently have visiting nurse or other home services: Yes Alcohol intake: never Patient Tobacco Use Status: Never used Tobacco e-Cigarette/Vaping Use: Never Used Second Hand Smoke Exposure: No Advance Directives Date on File: 03/11/23 service: No Current occupational status: unemployed Sexual orientation: Straight/Heterosexual Gender identity: Female Cognitive needs: No Hearing needs: No Vision needs: No Female Reproductive History Menstrual Age of Menarche: 13 Questionnaire PHQ-9 Over the last 2 weeks, how often have you been bothered by any of the following problems? 1. Little interest or pleasure in doing things: not at all 2. Feeling down, depressed, or hopeless: not at all 3. Trouble falling or staying asleep, or sleeping too much: not at all 4. Feeling tired or having little energy: not at all 5. Poor appetite or overeating: not at all 6. Feeling bad about yourself - or that you are a failure or have let yourself or your family down: not at all 7. Trouble concentrating on things, such as reading the newspaper or watching television: not at all 8. Moving or speaking so slowly that other people could have noticed. Or the opposite - being so fidgety or restless that you have been moving around a lot more than usual: not at all 9. Thoughts that you would be better off or of hurting yourself in some way: not at all Total score: 0 Depression Screening Interpretation: Negative Depression Screening Done: Yes 41172 - PHQ-9 Billing: Yes Source: Developed by Drs. Tez Bowen, Cesar Irwin and colleagues, with an educational alexia from [employer]. Thrive Questionnaire Date Thrive assessed: 03/11/23 AUDIT C Alcohol Use Questionnaire (AUDIT-C) 1. How often do you have a drink containing alcohol?: Never 3. How often do you have six or more drinks on one occasion?: Never Total Score: 0 DICKSON-7 AMB Questionnaire DICKSON-7 Date DICKSON - 7 assessed: 03/16/23 Source: Developed by Drs. Tez Bowen, Cesar Irwin and colleagues, with an educational alexia from [employer]. Review of Systems Const All systems reviewed & are unremarkable except as noted in HPI and below ENT Denies change in voice, Denies nasal discharge and Denies sinus pain Card Denies chest pain at rest, Denies chest pain with activity, Denies edema, Denies irregular heart rhythm, Denies claudication, Denies dyspnea, Denies dyspnea on exertion, Denies orthopnea, Denies paroxysmal nocturnal dyspnea and Denies slow heart rate Resp Denies cough, Denies dyspnea and Denies dyspnea on exertion GI Denies abdominal pain, Denies change in bowel habits, Denies excessive flatus, Denies nausea and Denies vomiting Neuro Denies behavioral changes, Denies confusion and Denies lack of coordination Psych Denies behavioral changes and Denies confusion Physical exam (Primary Care) Vital Signs: Last Vital Signs Pulse 99 10/10/23 07:51 BP 124/82 10/10/23 07:51 Pulse Ox 97 10/10/23 07:51 Oxygen Delivery Method Room Air 10/10/23 07:51 BMI result Body Mass Index 33.2 BMI Assessment/Plan discussion: High BMI High, discussed plan: lifestyle, weight reduction, dietary and physical activity Tobacco/Smoking Status: Tobacco use Status Tobacco use date assessed 03/16/23 10/10/23 07:53 Patient Tobacco Use Status Never used Tobacco 10/10/23 07:53 e-Cigarette/Vaping Use Never Used 10/10/23 07:53 PHQ-9: PHQ-9 Score PHQ-9: Total score 0 10/10/23 08:11 Depression Screening Interpretation: Negative Thrive Assessment: Date of Thrive Assessment Date Thrive assessed 03/11/23 10/10/23 07:53 Const General: No confusion Orientation/consciousness: patient oriented x3 and No confusion HENMT Head: Yes normal to inspection, Yes normocephalic and Yes atraumatic Ears: external ears normal Eyes General: appearance normal, both eyes and all related structures Eyelids: Yes eyelids normal Conjunctivae: conjunctivae normal Neck Neck: Yes normal visual inspection and Yes supple Resp Effort & Inspection: normal respiratory effort Auscultation: clear to auscultation bilaterally Cardio Jugular venous distension: no JVD Rate: regular rate Rhythm: regular rhythm Heart sounds: S1 normal heart sound present and S2 normal heart sound present GI Inspection: Yes normal to inspection Palpation (GI): Soft to palpation and nontender Auscultation: normal bowel sounds Skin General skin exam: no rashes or lesions noted Neuro General: patient oriented x3, no focal motor deficits and No confusion Extrem General: Yes full ROM Psych Appearance: grossly normal Results AMB Hemoglobin A1c AMB Hemoglobin A1c 6.3 % Last Edit by Clarice Chavez CMA on 10/10/23 08:16 Assessment and Plan Assessment & Plan (1) Physical exam: Code(s): Z00.00 - Encounter for general adult medical examination without abnormal findings Plan: Repeat in a year. (2) AML (acute myeloid leukemia) in remission: Code(s): C92.01 - Acute myeloblastic leukemia, in remission Plan: CBC ordered. (3) Diabetes mellitus: Code(s): E11.9 - Type 2 diabetes mellitus without complications Qualifiers: Diabetes mellitus type: type 2 Diabetes mellitus penitentiary insulin use: without vermin exterminator use Diabetes mellitus complication status: without complication Qualified Code(s): E11.9 - Type 2 diabetes mellitus without complications Plan: Continue Jardiance, metformin and Trulicity. A1c goal is equal or less than 7%. (4) Mild recurrent major depression: Code(s): F33.0 - Major depressive disorder, recurrent, mild Plan: Continue paroxetine. Follow-up with psychiatry. (5) Supraventricular tachycardia: Code(s): I47.1 - Supraventricular tachycardia Plan: Continue metoprolol. Follow-up with Cardiology. Orders: Orders Complete Blood Count Auto Diff 4 Months C92.01 - Acute myeloblastic leukemia, in remission AMB Hemoglobin A1c Today Z13.9 - Encounter for screening, unspecified Lipid Panel 4 Months E78.5 - Hyperlipidemia, unspecified Microalbumin, Random (w Creat) 4 Months E11.9 - Type 2 diabetes mellitus without complications Vitamin D 25-OH Total 4 Months E55.9 - Vitamin D deficiency, unspecified Vitamin B12 and Folate 4 Months E53.8 - Deficiency of other specified B group vitamins Comprehensive [place]. Panel Fast 4 Months Z00.00 - Encounter for general adult medical examination without abnormal findings Medications: Refilled empagliflozin (Jardiance) 10 mg PO DAILY 90 days 90 tabs 0RF dulaglutide (Trulicity) 1.5 mg (0.5 mL) subcut TH 2 mL 6RF Coding Level of Care Code Est Pt Prev Care 40-64y(57013) Diagnoses Physical exam Z00.00 AML (acute myeloid leukemia) in remission C92.01 Type 2 diabetes mellitus without complication, without long-term current use of insulin E11.9 Diabetes mellitus type: type 2 Diabetes mellitus penitentiary insulin use: without penitentiary use Diabetes mellitus complication status: without complication Mild recurrent major depression F33.0 Supraventricular tachycardia I47.1 Time Spent (min) 34
== END 2023-10-10 08:17 | disposition home or self-care (01) ==
PROVIDERS: PCP Internal Medicine; Visit Provider Internal Medicine
DX: Z00.00 Encounter for general adult medical examination without abnormal findings (principal); C92.01 Acute myeloblastic leukemia, in remission; E11.9 Type 2 diabetes mellitus without complications; F33.0 Major depressive disorder, recurrent, mild; I47.10 Supraventricular tachycardia, unspecified; Z13.9 Encounter for screening, unspecified
CPT/HCPCS: 83036; 99396

== ENCOUNTER 2023-11-02 13:05 | Outpatient (AMB) | payer OTHER, SELFPAY ==
--- NOTE | 2023-11-02 13:07 | MHC.OFFVIS ---
Vital Signs 11/02/23 13:08 Height 5 ft 7 in Weight 214 lb 15.211 oz BMI 33.7 BP 122/78 Blood Pressure Location Rt brachial Position Sitting Pulse 89 Pulse Source Doppler Pulse Oximetry (%) 97 Oxygen Delivery Method Room Air Intake Visit Reasons: Asthma Infection Control Rn Required: Yes Infection Control Rn Name: Xiao [email or web address].[email or web address] Allergies bee pollen [BEE STINGS] Allergy (Intermediate, Verified 10/10/23 08:05) RASH SWELLING PAIN FULL. phentermine Allergy (Intermediate, Verified 10/10/23 08:05) ANXIETY tramadol Allergy (Intermediate, Verified 10/10/23 08:05) stomach upset adhesive tape [ADHESIVE TAPE] Allergy (Mild, Verified 10/10/23 08:05) RASH oxycodone [OXYCODONE] Adverse Reaction (Intermediate, Verified 10/10/23 08:05) VOMITING apremilast [From Otezla] Adverse Reaction (Verified 10/10/23 08:05) diarrhea, nausea HPI HPI Asthma: Details: 58 year-old nonsmoker, with underlying history of lifelong asthma previously controlled on Spiriva, Advair, and albuterol MDI, also with COVID-19 back in March of 2021. Now followed for asthma and environmental allergies. Patient's symptoms are now well controlled on Xolair, Advair, albuterol MDI, and nasal ipratropium. She denies any recent exacerbations. [facility] Medical History Hx of acute myeloid leukemia in remission Benign paroxysmal positional vertigo Hospital discharge follow-up Abscess Essential hypertension Diabetes mellitus Migraines Hand numbness Mild persistent asthma Impaired glucose tolerance Mild recurrent major depression Herpes simplex type 2 infection Mixed hyperlipidemia Supraventricular tachycardia Left leg pain GERD (gastroesophageal reflux disease) Insomnia Left knee pain Nausea Depression with anxiety Surgical History History of esophagogastroduodenoscopy (EGD) Hx of colonoscopy History of removal of cyst History of surgery History of total abdominal hysterectomy History of cardiac radiofrequency ablation Family History (Updated 10/10/23 @ 08:22 by Kayy Aburto MD) Father Brain cancer Mother Esophageal cancer Sister Breast cancer Paternal Uncle Diabetes Hypertension Sister Colon cancer, Onset Age: 63 Social History Household Members: Children Housing: House Do you presently have visiting nurse or other home services: Yes Alcohol intake: never Patient Tobacco Use Status: Never used Tobacco e-Cigarette/Vaping Use: Never Used Second Hand Smoke Exposure: No Advance Directives Date on File: 03/11/23 service: No Current occupational status: unemployed Sexual orientation: Straight/Heterosexual Gender identity: Female Cognitive needs: No Hearing needs: No Vision needs: No Female Reproductive History Menstrual Age of Menarche: 13 Review of Systems Const Denies daytime sleepiness, Denies excessive sweating, Denies fatigue, Denies fever(s), Denies lethargy, Denies malaise, Denies night sweats, Denies snoring and Denies weight loss Eyes Denies blurry vision and Denies itchy eyes ENT Denies nasal congestion, Denies post nasal drip, Denies sinus pain, Denies sinus pressure and Denies other ( Thrush) Card Denies chest pain, Denies pedal edema, Denies dyspnea, Denies orthopnea and Denies paroxysmal nocturnal dyspnea Resp Denies cough, Denies hemoptysis, Denies excessive phlegm production, Denies dyspnea, Denies snoring and Denies wheezing GI Denies abdominal pain and Denies heartburn Musc Denies myalgias, Denies arthralgias and Denies joint swelling Skin/Breast Denies rash Neuro Denies memory loss and Denies seizure-like activity Psych Denies abnormal sleep pattern, Denies anxiety and Denies memory loss Endo Denies excessive sweating, Denies fatigue and Denies heat intolerance Zak/Lymph Denies easy bruising Aller/Immun Denies itchy eyes, Denies seasonal rhinorrhea and Denies wheezing Physical Exam Vital Signs: Last Vital Signs Pulse 89 11/02/23 13:08 BP 122/78 11/02/23 13:08 Pulse Ox 97 11/02/23 13:08 Oxygen Delivery Method Room Air 11/02/23 13:08 BMI result Body Mass Index 33.7 Const General: no acute distress and alert Nutritional Appearance: not obese Orientation/consciousness: Other orientation findings ( oriented) HEENT Head: Yes atraumatic Eyes General: appearance normal, both eyes and all related structures Sclerae: sclerae normal EOM: EOMs intact bilaterally Neck Neck: Yes supple Lymphatic: no lymphadenopathy noted Resp Effort & Inspection: normal respiratory effort and no use of accessory muscles Auscultation: clear to auscultation bilaterally Cardio Rate: regular rate Rhythm: regular rhythm Heart sounds: no gallops, no murmurs and no rubs Skin General skin exam: other ( warm) Extrem General: No clubbing, No cyanosis and No edema Assessment & Plan Assessment & Plan (1) Asthma: Code(s): J45.909 - Unspecified asthma, uncomplicated Category: Medical Plan: Symptoms continue to be well controlled on current regimen of Xolair, Advair, and albuterol MDI. Continue current regimen. (2) Environmental allergies: Code(s): Z91.09 - Other allergy status, other than to drugs and biological substances Category: Medical Plan: Well controlled on Xolair and nasal ipratropium. Continue current regimen. Coding Level of Care Code Est Pt Level 4 (40072) Diagnoses Asthma J45.909 Environmental allergies Z91.09
[2023-11-02 13:08] VITALS: BP 122/78; PULSE 89; O2SAT 97; BMI 33.7
== END 2023-11-02 13:18 | disposition home or self-care (01) ==
PROVIDERS: PCP Internal Medicine; Visit Provider Internal Medicine Pulmonary Disease
DX: J45.909 Unspecified asthma, uncomplicated (principal); Z91.09 Other allergy status, other than to drugs and biological substances
CPT/HCPCS: 99214

== ENCOUNTER → 2023-11-02 13:05 | Outpatient (BNVA) | payer OTHER, SELFPAY | PROVIDERS: PCP Internal Medicine; Visit Provider Internal Medicine Pulmonary Disease | DX: J45.909 Unspecified asthma, uncomplicated (principal); Z91.09 Other allergy status, other than to drugs and biological substances | CPT/HCPCS: 99212 ==

== ENCOUNTER → 2023-11-08 12:48 | Outpatient (REF) | payer OTHER, SELFPAY ==
--- NOTE | 2023-11-08 12:50 | HM_ITS ---
Conclusion: 1. Baseline was normal sinus rhythm with average heart of 91 beats per minute 2. No significant pauses noted 3. No significant arrhythmias noted 4. Patient marked the counter 1 time correlating with sinus rhythm with no reported symptoms MTDD
== END ==
LOC: HO.CARD 12:48
PROVIDERS: PCP Internal Medicine; Visit Provider Nurse Practitioner Family
DX: R00.2 Palpitations (principal)
CPT/HCPCS: 93242

== ENCOUNTER → 2023-11-08 12:50 | Outpatient (BNV) | payer OTHER, SELFPAY | PROVIDERS: PCP Internal Medicine; Visit Provider Internal Medicine Cardiovascular Disease | DX: R00.0 Tachycardia, unspecified (principal) | CPT/HCPCS: 93244 ==

== ENCOUNTER 2023-11-14 08:19 | Outpatient (REF) | payer OTHER, SELFPAY ==
[2023-11-14 08:53] LABS: MANUAL DIFF FLAG NO
[2023-11-14 09:32] LABS: Basophils Absolute Auto 0.1 X10*3/uL (0.0-0.2); Basophils Percent Auto 0.8 % (0-2); Eosinophils Absolute Auto 0.4 X10*3/uL (0.0-0.4); Eosinophils Percent Auto 4.9 % (0-4); Hematocrit 45.1 % (37.0-47.0); Hemoglobin 14.9 g/dl (12.0-16.0); Imm Gran Abs Auto 0.05 X10*3/uL (0.00-0.03); Imm Gran Pct Auto 0.7 % (0.0-0.4); Lymphocytes Absolute Auto 2.7 X10*3/uL (1.2-4.9); Lymphocytes Percent Auto 35.6 % (20-40); Mean Corpuscular Hemoglobin 29.9 pg (27.0-33.0); Mean Corpuscular Volume 90.6 fL (80.0-98.0); Mean Platelet Volume 9.1 fL (9.4-12.3); Monocytes Absolute Auto 0.5 X10*3/uL (0.1-1.2); Monocytes Percent Auto 7.1 % (2-11); Neutrophils Absolute Auto 3.8 x10*3/uL (2.0-8.3); Neutrophils Percent Auto 50.9 % (45-73); Platelet Count 304 X10*3/uL (160-400); Red Blood Count 4.98 X10*6/uL (4.20-5.50); Red Cell Distribution Width 13.3 % (11.0-16.0); White Blood Count 7.5 X10*3/uL (4.8-10.8)
== END 2023-11-14 08:20 | disposition home or self-care (01) ==
LOC: HO.LAB 08:19
PROVIDERS: Absent Provider Internal Medicine; PCP Internal Medicine; Visit Provider Dermatology
DX: L40.0 Psoriasis vulgaris (principal)
CPT/HCPCS: 36415; 85025

== ENCOUNTER 2023-11-18 09:06 | Outpatient (AMB) | payer OTHER, SELFPAY ==
[2023-11-18 09:31] VITALS: BP 124/70; PULSE 87; BMI 33.7
--- NOTE | 2023-11-18 09:31 | MHC.OFFVIS ---
Vital Signs 11/18/23 09:31 Height 5 ft 7 in Weight 215 lb 2.738 oz BMI 33.7 BP 124/70 Blood Pressure Location Lt brachial Position Sitting Pulse 87 Pulse Source Pulse Oximeter Intake Visit Reasons: r/s 11/10/23 followup Spool Cleaner Required: Yes Spool Cleaner Language: Bird Raiser Name: [email or web address] Accompanied by: Self / Same As Patient Allergies bee pollen [BEE STINGS] Allergy (Intermediate, Verified 10/10/23 08:05) RASH SWELLING PAIN FULL. phentermine Allergy (Intermediate, Verified 10/10/23 08:05) ANXIETY tramadol Allergy (Intermediate, Verified 10/10/23 08:05) stomach upset adhesive tape [ADHESIVE TAPE] Allergy (Mild, Verified 10/10/23 08:05) RASH oxycodone [OXYCODONE] Adverse Reaction (Intermediate, Verified 10/10/23 08:05) VOMITING apremilast [From Otezla] Adverse Reaction (Verified 10/10/23 08:05) diarrhea, nausea Medication List - Last Reconciled 11/18/23 by GERARD Concepcion benzonatate 100 mg PO BID PRN 5 days bisacodyl (Dulcolax (bisacodyl)) 5 mg PO DAILY 30 days blood sugar diagnostic (PublicRelayuch Ultra Test strips) Use 1 test strip once a day blood-glucose meter (PublicRelayuch Ultra2 Meter) As directed dulaglutide (Trulicity) 1.5 mg (0.5 mL) subcut TH empagliflozin (Jardiance) 10 mg PO DAILY 90 days fenofibrate 54 mg PO DAILY fluticasone propion-salmeterol 115-21 mcg/actuation (Advair HFA) 2 puffs PO BID ipratropium bromide 2 sprays intranasal TID-QID PRN 30 days lancets ([employer] ServiceTouch UltraSoft 2 Lancet) Use 1 lancet once a day loratadine 10 mg PO DAILY PRN lorazepam 1 mg PO TID PRN meclizine 25 mg PO Q6H PRN metformin 850 mg PO DAILY metoprolol succinate ER 25 mg PO DAILY nebulizers (Aeroneb Go Nebulizer) As directed omalizumab (Xolair) 300 mg subcut Q4W 28 days omeprazole 20 mg PO DAILY ondansetron 4 mg PO Q8H PRN paroxetine HCl 20 mg PO DAILY paroxetine HCl 10 mg PO QAM polyethylene glycol 3350 (Miralax) 17 grams PO DAILY rosuvastatin 20 mg PO BEDTIME 90 days triamcinolone acetonide 0.1% topical zolpidem 10 mg PO BEDTIME PRN HPI HPI r/s 11/10/23 followup: Details: Simi is a 58-year-old female past medical history of hypertension, hyperlipidemia, diabetes, obesity, SVT who presents for follow-up. Last June she was seen at [facility] for with report that her left side felt weird . An MRI of the brain showed no acute abnormalities. Today she reports that she has been getting heart palpitations, rapid heartbeats, 2 to 3 times a week lasting a few minutes and then resolving. This causes her to be fatigue and she needs to lay down and rest. No lightheadedness, presyncope, syncope, falls. No chest discomfort at rest or with activity. She has chronic shortness of breath with exertion which she states is unchanged. No PND, orthopnea or edema. No recurrent or new neurological symptoms. Tolerates normal ADLs without concerning difficulty. Takes meds as directed. 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 [facility] Medical History Hx of acute myeloid leukemia in remission Benign paroxysmal positional vertigo Hospital discharge follow-up Abscess Essential hypertension Diabetes mellitus Migraines Hand numbness Mild persistent asthma Impaired glucose tolerance Mild recurrent major depression Herpes simplex type 2 infection Mixed hyperlipidemia Supraventricular tachycardia Left leg pain GERD (gastroesophageal reflux disease) Insomnia Left knee pain Nausea Depression with anxiety Surgical History History of esophagogastroduodenoscopy (EGD) Hx of colonoscopy History of removal of cyst History of surgery History of total abdominal hysterectomy History of cardiac radiofrequency ablation Family History Father Brain cancer Mother Esophageal cancer Sister Breast cancer Paternal Uncle Diabetes Hypertension Sister Colon cancer, Onset Age: 63 Social History Household Members: Children Housing: House Do you presently have visiting nurse or other home services: Yes Alcohol intake: never Patient Tobacco Use Status: Never used Tobacco e-Cigarette/Vaping Use: Never Used Second Hand Smoke Exposure: No Advance Directives Date on File: 03/11/23 service: No Current occupational status: unemployed Sexual orientation: Straight/Heterosexual Gender identity: Female Cognitive needs: No Hearing needs: No Vision needs: No Female Reproductive History Menstrual Age of Menarche: 13 Review of Systems Const Denies chills, Denies fatigue, Denies fever(s), Denies frequent falls, Denies weakness, Denies weight gain and Denies weight loss ENT Denies dizziness Card Denies chest pain, Denies leg edema, Denies lightheadedness, Reports palpitations, Denies dyspnea and Denies dyspnea on exertion Resp Denies cough, Denies dyspnea and Denies dyspnea on exertion GI Denies hematochezia Musc Denies abnormal gait, Denies muscle weakness, Denies numbness, Denies radiating pain into limb and Denies tingling Neuro Denies abnormal gait, Denies dizziness, Denies frequent falls, Denies numbness, Denies tingling and Denies weakness Endo Denies fatigue and Reports palpitations Physical Exam Vital Signs: Last Vital Signs Pulse 87 11/18/23 09:31 BP 124/70 11/18/23 09:31 BMI result Body Mass Index 33.7 Const General: cooperative, healthy appearing, comfortable and no acute distress Orientation/consciousness: patient oriented x3 Neck Neck: Yes normal visual inspection Resp Effort & Inspection: normal respiratory effort Auscultation: clear to auscultation bilaterally, no crackles, no rales, no rhonchi and no wheezes Cardio Jugular venous distension: no JVD Rate: regular rate Rhythm: regular rhythm Heart sounds: S1 normal heart sound present, S2 normal heart sound present, no gallops, no murmurs and no rubs Peripheral pulses: Peripheral pulses 2+ throughout Neuro General: patient oriented x3 Extrem General: Yes normal to inspection and No no pedal edema Psych Appearance: grossly normal Mental Status: mental status grossly normal Speech and movement: Normal speech and movement present Assessment & Plan Assessment & Plan (1) Supraventricular tachycardia: Code(s): I47.1 - Supraventricular tachycardia Category: Medical Plan: History of supraventricular tachycardia. No recent documented episodes. On last visit she reported only occasional heart palpitations lasting 5-10 minutes and occurring approximately once a week and she was started on low-dose metoprolol. Holter monitor was done on 05/14/2023 showing sinus rhythm with no significant arrhythmia, average rate 91. Today she reports that she is still noticing the heart palpitations 2 to 3 times a week lasting for a few minutes before resolving. This causes her to be fatigued. Will increase metoprolol XL up to 50 mg daily. Last echo 05/18/2021 showed EF 57%, [id number] focal hypertrophy of the basal septum, grade 1 diastolic dysfunction. Informed to avoid caffeinated beverages, maintain good hydration and activity as tolerated. Cardiology follow-up 6 months, sooner if needed. Instructed to call if she has ongoing heart palpitations on the higher dose metoprolol. (2) Essential hypertension: Code(s): I10 - Essential (primary) hypertension Category: Medical Plan: Well controlled at present. Increasing metoprolol. (3) Hyperlipidemia LDL goal <70: Code(s): E78.5 - Hyperlipidemia, unspecified Category: Medical Plan: [place] LDL goal less than 70 in patient with diabetes. Labs done 09/22/2022 shows LDL 78. She is on rosuvastatin 20 mg daily. Benefits of weight loss and increasing physical activity reviewed with her. Primarily followed by her PCP (4) Diabetes mellitus: Code(s): E11.9 - Type 2 diabetes mellitus without complications Category: Medical Qualifiers: Diabetes mellitus complication status: without complication Diabetes mellitus termite exterminator insulin use: without senior living use Diabetes mellitus type: type 2 Qualified Code(s): E11.9 - Type 2 diabetes mellitus without complications Plan: Hemoglobin A1c goal less than 7. Followed by PCP (5) Palpitation: Code(s): R00.2 - Palpitations Category: Medical Plan: As above Plan Time spent on chart review, documentation, interview and assessment Medications: New metoprolol succinate ER dose increased 50 mg PO DAILY 90 tabs 3RF Discontinued metoprolol succinate ER Discontinued Reason: Doctor's Order 25 mg PO DAILY 30 tabs 3RF Coding Level of Care Code Est Pt Level 3 (17487) Diagnoses Supraventricular tachycardia I47.1 Essential hypertension I10 Hyperlipidemia LDL goal <70 E78.5 Type 2 diabetes mellitus without complication, without long-term current use of insulin E11.9 Diabetes mellitus complication status: without complication Diabetes mellitus termite exterminator insulin use: without termite exterminator use Diabetes mellitus type: type 2 Palpitation R00.2 Time Spent (min) 24
== END 2023-11-18 09:57 | disposition home or self-care (01) ==
PROVIDERS: PCP Internal Medicine; Visit Provider Nurse Practitioner Family
DX: I47.10 Supraventricular tachycardia, unspecified (principal); I10 Essential (primary) hypertension; E78.5 Hyperlipidemia, unspecified; E11.9 Type 2 diabetes mellitus without complications; R00.2 Palpitations
CPT/HCPCS: 99213

== ENCOUNTER → 2023-11-18 09:06 | Outpatient (BNVA) | payer OTHER, SELFPAY | PROVIDERS: PCP Internal Medicine; Visit Provider Nurse Practitioner Family | DX: I10 Essential (primary) hypertension (principal); I47.10 Supraventricular tachycardia, unspecified; E78.5 Hyperlipidemia, unspecified; E11.9 Type 2 diabetes mellitus without complications; E66.9 Obesity, unspecified; R00.2 Palpitations; Z68.33 Body mass index [BMI] 33.0-33.9, adult | CPT/HCPCS: 99212 ==

== ENCOUNTER 2023-11-24 08:25 | Outpatient (REF) | payer OTHER, SELFPAY ==
--- NOTE | ~2023-11-24 | MM_ITS ---
EXAMINATION: MM SCREENING DIGITAL BREAST TOMOSYNTHESIS, BILATERAL CLINICAL INFORMATION: Screening. Asymptomatic. COMPARISON: Mammography: Comparison is made with available priors TECHNIQUE: Digital breast mammography with tomosynthesis is performed in both the craniocaudal and mediolateral oblique views along with computer-aided detection (CAD). FINDINGS: There are scattered areas of fibroglandular density (ACR BI-RADS breast composition Category b). There are no significant masses, abnormal calcifications, or other abnormalities. MM/MM tomosynthesis screening BI IMPRESSION: No mammographic evidence of malignancy. ASSESSMENT: BI-RADS BI-RADS 1 - Negative RECOMMENDATION: Routine annual mammography screening. 1 year F/U This examination should not preclude the clinical evaluation of a suspicious palpable abnormality. This patient's information was entered into a reminder system with a target due date for their next mammogram. Electronically signed by: Dahlia Whatley DO 12/06/2023 09:25 AM EDT
== END 2023-11-24 08:26 | disposition home or self-care (01) ==
LOC: HO.MAMMO 08:25
PROVIDERS: PCP Internal Medicine; Visit Provider Internal Medicine
DX: Z12.31 Encounter for screening mammogram for malignant neoplasm of breast (principal)
CPT/HCPCS: 77063; 77067

== ENCOUNTER → 2023-11-24 09:00 | Outpatient (BNV) | payer OTHER, SELFPAY | PROVIDERS: PCP Internal Medicine; Visit Provider Internal Medicine | DX: Z12.31 Encounter for screening mammogram for malignant neoplasm of breast (principal) | CPT/HCPCS: 77063; 77067 ==

== ENCOUNTER 2023-12-09 10:17 | Outpatient (AMB) | payer OTHER, SELFPAY ==
--- NOTE | 2023-12-09 10:25 | A.OFFVIS_ITS ---
Vital Signs 12/09/23 10:26 Height 5 ft 7 in Weight 216 lb 0.848 oz BMI 33.8 BP 135/82 Blood Pressure Location Lt brachial Position Sitting Pulse 83 Intake Visit Reasons: S/P [place]; Dr. Dubon Intake Note: Simi presents in the office as a follow up colonoscopy. CC: She states that she is not feeling well. Uncomfortable feeling in her stomach and nausea - she states that this has been since yesterday. Constipation - she states that she is not having any blood. Adult Basic Education Instructor Required: Yes Adult Basic Education Instructor Name: [id number] Reinier Allergies bee pollen [BEE STINGS] Allergy (Intermediate, Verified 12/09/23 10:26) RASH SWELLING PAIN FULL. phentermine Allergy (Intermediate, Verified 12/09/23 10:26) ANXIETY tramadol Allergy (Intermediate, Verified 12/09/23 10:26) stomach upset adhesive tape [ADHESIVE TAPE] Allergy (Mild, Verified 12/09/23 10:26) RASH oxycodone [OXYCODONE] Adverse Reaction (Intermediate, Verified 12/09/23 10:26) VOMITING apremilast [From Otezla] Adverse Reaction (Verified 12/09/23 10:26) diarrhea, nausea HPI HPI S/P [place]; Dr. Dubon: Details: 58 yr old f here for f/u RECAP:pt of ulices Had GERD, on PPI--was taking prn instead of as scheduled but working for her constipation, on fiber and bisacodyl sx had improved a lot with pantoprzole and fiber diet she saw blood in stool and felt a hemorrhoid, she bought prep H and it helped mother of esophageal ca was a smoker. colonoscopy 2017- patty, flat hyperplastic poylp removed EGD 10/2018--fundic gland polyps, esophagitis--increased IEL duodenum, chronci esophagitis and gastritis celaic panel negative h pylori breath test neg GES 04/2019--normal --colonoscopy --11/2019--polyp removed--mucosal, benign, internal hemorrhoids, rept 3 yr due to fair prep EGD 11/26 done due to dysphagia: inflammation GEJ and dilation to 19 mm UEs and LES Path: moderate inflammation GEJ, active esophagitis, hyperplastic polyps stomach EGD 06/2022 with dilation of esophagus and stomach esophagitis gastritis fundic gland polyps small hiatal hernia schatzki ring Path: A. Stomach, biopsy: Oxyntic mucosa with moderate chronic inactive inflammation; no Helicobacter organisms seen. B. Stomach, polyps: Fundic gland polyps with background mild chronic inactive inflammation; no Helicobacter organisms seen. C. GE junction, biopsy: - Active esophagitis (mostly neutrophils). - No glandular epithelium identified. ALSO checked RAST; high levels for several foods incl peanuts, almonds, sesame, WHEAT INTERIM: colonoscopy 07/28 --clear, no polyps swallowing is fine, no issues she has nausea today and dizziness she denies cough, or congestion denies fever she has upper abdominal pain since last night --feels crampy she has constipation, no stool for 4 days, no gas either she feels bloated deneis urine sx EXAM: BP is mildly raised GENERAL: The patient is well developed and nontoxic. VITAL SIGNS:see workflow HEENT: Nonicteric sclerae, PERRLA, EOMI. Oropharynx clear. Moist mucous membranes. Conjunctivae appear well perfused. No thyroid mass. CHEST: Chest wall is nontender. HEART: Regular rate and rhythm without murmurs. LUNGS: Clear to auscultation bilaterally. ABDOMEN: Soft, positive bowel sounds, mildy tender epigastrium, no organomegaly.no flank tenderness SKIN: No rash, no excessive bruising, petechiae, or purpura. NEUROLOGIC: Cranial nerves II-XII intact without motor/sensory deficit. Assessments 1. GERD with esophagitis -on PPI, better since dilation 2/ Food allergies 3/ constipation maybe slow transit or due to diet, meds 4/ Abdominal pain and malaise, no acute red flags, but constipation, could be from her meds and DM PLAN: 1/ increase miralax to BID 2/ KUB 3/ labs today and KUB, UA 4/ short term f/u, advised to go to ED if any worsening sx [facility] Medical History Hx of acute myeloid leukemia in remission Benign paroxysmal positional vertigo Hospital discharge follow-up Abscess Essential hypertension Diabetes mellitus Migraines Hand numbness Mild persistent asthma Impaired glucose tolerance Mild recurrent major depression Herpes simplex type 2 infection Mixed hyperlipidemia Supraventricular tachycardia Left leg pain GERD (gastroesophageal reflux disease) Insomnia Left knee pain Nausea Depression with anxiety Surgical History History of esophagogastroduodenoscopy (EGD) Hx of colonoscopy History of removal of cyst History of surgery History of total abdominal hysterectomy History of cardiac radiofrequency ablation Family History Father Brain cancer Mother Esophageal cancer Sister Breast cancer Paternal Uncle Diabetes Hypertension Sister Colon cancer, Onset Age: 63 Social History Household Members: Children Housing: House Do you presently have visiting nurse or other home services: Yes Alcohol intake: never Patient Tobacco Use Status: Never used Tobacco e-Cigarette/Vaping Use: Never Used Second Hand Smoke Exposure: No Advance Directives Date on File: 03/11/23 service: No Current occupational status: unemployed Sexual orientation: Straight/Heterosexual Gender identity: Female Cognitive needs: No Hearing needs: No Vision needs: No Female Reproductive History Menstrual Age of Menarche: 13 Physical Exam Vital Signs: Last Vital Signs Pulse 83 12/09/23 10:26 BP 135/82 12/09/23 10:26 BMI result Body Mass Index 33.8 Assessment & Plan Assessment & Plan (1) Constipation by delayed colonic transit: Code(s): K59.01 - Slow transit constipation Category: Medical Plan: see above Orders: Orders Complete Blood Count Auto Diff Today K59.01 - Slow transit constipation Magnesium Today K59.01 - Slow transit constipation C Reactive Protein Today K59.01 - Slow transit constipation Vitamin B12 and Folate Today K59.01 - Slow transit constipation Ferritin Today K59.01 - Slow transit constipation TSH reflex Free T4 Today K59.01 - Slow transit constipation XR KUB Today K59.01 - Slow transit constipation Comprehensive Met. Panel Today K59.01 - Slow transit constipation, K75.81 - Nonalcoholic steatohepatitis (REICH) UA CC w/rflx Micro + Cult Today R30.0 - Dysuria Medications: Refilled ondansetron 4 mg PO Q8H PRN 10 tabs 0RF nausea and vomiting Coding Level of Care Code Est Pt Level 4 (08450) Diagnoses Constipation by delayed colonic transit K59.01
[2023-12-09 10:26] VITALS: BP 135/82; PULSE 83; BMI 33.8
== END 2023-12-09 11:06 | disposition home or self-care (01) ==
PROVIDERS: PCP Internal Medicine; Visit Provider Internal Medicine Gastroenterology
DX: K59.01 Slow transit constipation (principal)
CPT/HCPCS: 99214

== ENCOUNTER → 2023-12-09 10:17 | Outpatient (BNVA) | payer OTHER, SELFPAY | PROVIDERS: PCP Internal Medicine; Visit Provider Internal Medicine Gastroenterology | DX: K59.01 Slow transit constipation (principal); K75.81 Nonalcoholic steatohepatitis (NASH); R30.0 Dysuria | CPT/HCPCS: 99212 ==

== ENCOUNTER 2023-12-26 09:24 | Outpatient (REF) | payer OTHER, SELFPAY ==
[2023-12-26 11:30] LABS: MANUAL DIFF FLAG NO
[2023-12-26 11:32] LABS: Basophils Absolute Auto 0.1 X10*3/uL (0.0-0.2); Basophils Percent Auto 0.8 % (0-2); Eosinophils Absolute Auto 0.3 X10*3/uL (0.0-0.4); Eosinophils Percent Auto 3.6 % (0-4); Hemoglobin 14.6 g/dl (12.0-16.0); Imm Gran Abs Auto 0.06 X10*3/uL (0.00-0.03); Imm Gran Pct Auto 0.8 % (0.0-0.4); Lymphocytes Absolute Auto 2.4 X10*3/uL (1.2-4.9); Lymphocytes Percent Auto 32.5 % (20-40); Mean Corpuscular HGB Conc 33.2 g/dl (31.0-35.0); Mean Corpuscular Hemoglobin 29.2 pg (27.0-33.0); Mean Platelet Volume 8.4 fL (9.4-12.3); Monocytes Absolute Auto 0.5 X10*3/uL (0.1-1.2); Monocytes Percent Auto 6.8 % (2-11); Neutrophils Percent Auto 55.5 % (45-73); Platelet Count 267 X10*3/uL (160-400); Red Cell Distribution Width 13.4 % (11.0-16.0); White Blood Count 7.2 X10*3/uL (4.8-10.8)
[2023-12-26 12:13] LABS: Alanine Aminotransferase 21 U/L (0-31); Albumin Level 4.5 g/dL (3.5-5.0); Alkaline Phosphatase 96 U/L (39-117); Anion Gap 13 (12-20); Aspartate Amino Transferase 23 U/L (5-31); Bilirubin Total 0.5 mg/dL (0.0-1.0); Blood Urea Nitrogen 8 mg/dL (9-16); C Reactive Protein 0.98 mg/dL (< or = 0.50); Carbon Dioxide 25 mmol/L (22-29); Chloride 106 mmol/L (96-108); Estimated Glomerular Filt Rate > 60; Glucose Random 105 mg/dL (60-115); Magnesium 1.7 mg/dL (1.6-2.6); Parathyroid Hormone Intact 93.6 pg/mL (8.7-77.1); Phosphorus 2.6 mg/dL (2.7-4.5); Potassium 3.8 mmol/L (3.3-5.1); Sodium 140 mmol/L (135-145); Total Protein 7.5 g/dL (6.5-8.0)
[2023-12-26 12:28] LABS: Ferritin 50 ng/mL (10-250)
[2023-12-26 12:43] LABS: Appearance Urine Clear; Color Urine Yellow; Glucose Urine UA >=1000 mg/dL (Negative); Leukocyte Esterase Urine Negative (Negative); Nitrite Urine Negative (Negative); PH 5.5 (5.0-9.0); Specific Gravity - Urine 1.025 (1.005-1.025); UMIC TRIGGER UACC YES; Urine Blood Negative (Negative); Urine Ketones Negative (Negative); Urine Protein Negative (Neg-Trace)
[2023-12-26 12:44] LABS: Vitamin B12 538 pg/mL (200-900)
[2023-12-26 12:50] LABS: Bacteria Urine Trace (None Seen); Hyaline Casts Urine 0-2 /LPF (0-2); RBC Urine 0-2 /HPF (0-2); WBC Urine 0-5 /HPF (0-5)
[2023-12-29 13:03] LABS: Calcium, Ionized 5.3 mg/dL (4.7-5.5)
[2023-12-30 16:04] LABS: VITAMIN D (1,25 OH) D3 64 pg/mL; Vit D (1,25-Dihydroxy) Total 64 pg/mL (18-72); Vitamin D (1,25 OH) D2 <8 pg/mL; Vitamin D 25-OH, D2 <4 ng/mL; Vitamin D 25-OH, D3 32 ng/mL; Vitamin D 25-OH, Total 32 ng/mL (30-100)
[2023-12-31 20:09] LABS: Parathyroid Hormone Related Pr 15 pg/mL (11-20)
== END 2023-12-26 09:25 | disposition home or self-care (01) ==
LOC: HO.LAB 09:24
PROVIDERS: PCP Internal Medicine; Visit Provider Internal Medicine Gastroenterology
DX: K59.01 Slow transit constipation (principal); E83.52 Hypercalcemia; K75.81 Nonalcoholic steatohepatitis (NASH); R30.0 Dysuria
CPT/HCPCS: 36415; 80053; 81001; 82306; 82330; 82607; 82652; 82728; 82746; 83519; 83735; 83970; 84100; 84443; 85025; 86140; 99212

== ENCOUNTER 2023-12-26 09:24 | Outpatient (AMB) | payer OTHER, SELFPAY ==
--- NOTE | 2023-12-26 09:39 | MHC.OFFVIS ---
Vital Signs 12/26/23 09:43 Height 5 ft 8 in Weight 216 lb 0.848 oz BMI 32.8 BP 130/78 Blood Pressure Location Lt brachial Position Sitting Pulse 76 Intake Visit Reasons: 1 week f/u [facility] Intake Note: Simi presents in the office as a 1 week follow up. CC: She states that she is feeling a lot better since the last visit. She states that she takes the OTC colace with plum juice and it helps with her constipation. Allergies bee pollen [BEE STINGS] Allergy (Intermediate, Verified 12/26/23 09:43) RASH SWELLING PAIN FULL. phentermine Allergy (Intermediate, Verified 12/26/23 09:43) ANXIETY tramadol Allergy (Intermediate, Verified 12/26/23 09:43) stomach upset adhesive tape [ADHESIVE TAPE] Allergy (Mild, Verified 12/26/23 09:43) RASH oxycodone [OXYCODONE] Adverse Reaction (Intermediate, Verified 12/26/23 09:43) VOMITING apremilast [From Otezla] Adverse Reaction (Verified 12/26/23 09:43) diarrhea, nausea HPI HPI 1 week f/u [facility]: Details: 58 yr old f here for f/u RECAP:pt of ulices Had GERD, on PPI--was taking prn instead of as scheduled but working for her constipation, on fiber and bisacodyl sx had improved a lot with pantoprzole and fiber diet she saw blood in stool and felt a hemorrhoid, she bought prep H and it helped mother of esophageal ca was a smoker. colonoscopy 2017- patty, flat hyperplastic poylp removed EGD 10/2018--fundic gland polyps, esophagitis--increased IEL duodenum, chronci esophagitis and gastritis celaic panel negative h pylori breath test neg GES 04/2019--normal --colonoscopy --11/2019--polyp removed--mucosal, benign, internal hemorrhoids, rept 3 yr due to fair prep EGD 11/26 done due to dysphagia: inflammation GEJ and dilation to 19 mm UEs and LES Path: moderate inflammation GEJ, active esophagitis, hyperplastic polyps stomach EGD 06/2022 with dilation of esophagus and stomach esophagitis gastritis fundic gland polyps small hiatal hernia schatzki ring Path: A. Stomach, biopsy: Oxyntic mucosa with moderate chronic inactive inflammation; no Helicobacter organisms seen. B. Stomach, polyps: Fundic gland polyps with background mild chronic inactive inflammation; no Helicobacter organisms seen. C. GE junction, biopsy: - Active esophagitis (mostly neutrophils). - No glandular epithelium identified. ALSO checked RAST; high levels for several foods incl peanuts, almonds, sesame, WHEAT colonoscopy 07/28 --clear, no polyps INTERIM: she feels good, no issues with constipation, advised to not take marlon daily due to senior care effects in motility denies fever no abdominal pain appetite is good EXAM: BP is mildly raised GENERAL: The patient is well developed and nontoxic. VITAL SIGNS:see workflow HEENT: Nonicteric sclerae, PERRLA, EOMI. Oropharynx clear. Moist mucous membranes. Conjunctivae appear well perfused. No thyroid mass. CHEST: Chest wall is nontender. HEART: Regular rate and rhythm without murmurs. LUNGS: Clear to auscultation bilaterally. ABDOMEN: Soft, positive bowel sounds, non tender, no organomegaly.no flank tenderness SKIN: No rash, no excessive bruising, petechiae, or purpura. NEUROLOGIC: Cranial nerves II-XII intact without motor/sensory deficit. Assessments 1. GERD with esophagitis -on PPI, better since dilation 2/ Food allergies 3/ constipation maybe slow transit or due to diet, meds better with prune juice and senna, colace, dulcolax 4/ mild hypercalcemia PLAN: 1/ check PTH, and other labs see if any other path for hypercalcemia PFSH Medical History Hx of acute myeloid leukemia in remission Benign paroxysmal positional vertigo Hospital discharge follow-up Abscess Essential hypertension Diabetes mellitus Migraines Hand numbness Mild persistent asthma Impaired glucose tolerance Mild recurrent major depression Herpes simplex type 2 infection Mixed hyperlipidemia Supraventricular tachycardia Left leg pain GERD (gastroesophageal reflux disease) Insomnia Left knee pain Nausea Depression with anxiety Surgical History History of esophagogastroduodenoscopy (EGD) Hx of colonoscopy History of removal of cyst History of surgery History of total abdominal hysterectomy History of cardiac radiofrequency ablation Family History Father Brain cancer Mother Esophageal cancer Sister Breast cancer Paternal Uncle Diabetes Hypertension Sister Colon cancer, Onset Age: 63 Social History Household Members: Children Housing: House Do you presently have visiting nurse or other home services: Yes Alcohol intake: never Patient Tobacco Use Status: Never used Tobacco e-Cigarette/Vaping Use: Never Used Second Hand Smoke Exposure: No Advance Directives Date on File: 03/11/23 service: No Current occupational status: unemployed Sexual orientation: Straight/Heterosexual Gender identity: Female Cognitive needs: No Hearing needs: No Vision needs: No Female Reproductive History Menstrual Age of Menarche: 13 Physical Exam Vital Signs: Last Vital Signs Pulse 76 12/26/23 09:43 BP 130/78 12/26/23 09:43 BMI result Body Mass Index 32.8 Assessment & Plan Assessment & Plan (1) Hypercalcemia: Code(s): E83.52 - Hypercalcemia Category: Medical Plan: see above Orders: Orders Calcium, Ionized Today E83.52 - Hypercalcemia Parathyroid Hormone Related Pr Today E83.52 - Hypercalcemia Vitamin D 1,25 dihydroxy Today E83.52 - Hypercalcemia Vitamin D 25-OH (D2 and D3) Today E83.52 - Hypercalcemia Phosphorus Today E83.52 - Hypercalcemia Parathyroid Hormone Intact Today E83.52 - Hypercalcemia Coding Level of Care Code Est Pt Level 3 (82350) Diagnoses Hypercalcemia E83.52
[2023-12-26 09:43] VITALS: BP 130/78; PULSE 76; BMI 32.8
== END 2023-12-26 10:16 | disposition home or self-care (01) ==
PROVIDERS: PCP Internal Medicine; Visit Provider Internal Medicine Gastroenterology
DX: E83.52 Hypercalcemia (principal)
CPT/HCPCS: 99213

== ENCOUNTER 2024-02-13 12:29 | Outpatient (AMB) | payer OTHER, SELFPAY ==
--- NOTE | 2024-02-13 12:38 | A.OFFPC_ITS ---
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 phentermine Allergy (Intermediate, Verified 02/13/24 12:50) ANXIETY tramadol Allergy (Intermediate, Verified 02/13/24 12:50) stomach upset adhesive tape [ADHESIVE TAPE] Allergy (Mild, Verified 02/13/24 12:50) RASH oxycodone [OXYCODONE] Adverse Reaction (Intermediate, Verified 02/13/24 12:50) VOMITING apremilast [From Otezla] Adverse Reaction (Verified 02/13/24 12:50) diarrhea, nausea Medication List - Last Reconciled 02/13/24 by Kayy Aburto MD bisacodyl (Dulcolax (bisacodyl)) 5 mg PO DAILY 30 days blood sugar diagnostic ([employer] Ultra Test strips) Use 1 test strip once a day blood-glucose meter ([employer] Ultra2 Meter) As directed docusate sodium (Colace) 100 mg PO DAILY dulaglutide (Trulicity) 1.5 mg (0.5 mL) subcut TH empagliflozin (Jardiance) 10 mg PO DAILY 90 days fenofibrate 54 mg PO DAILY fluticasone propion-salmeterol 115-21 mcg/actuation (Advair HFA) 2 puffs PO BID ipratropium bromide 2 sprays intranasal TID-QID PRN 30 days lancets (Steven [employer] LL[employer]ouch UltraSoft 2 Lancet) Use 1 lancet once a day loratadine 10 mg PO DAILY PRN lorazepam 1 mg PO TID PRN meclizine 25 mg PO Q6H PRN metformin 850 mg PO DAILY metoprolol succinate ER 50 mg PO DAILY nebulizers (Aeroneb Go Nebulizer) As directed omalizumab (Xolair) 300 mg subcut Q4W 28 days omeprazole 20 mg PO DAILY ondansetron 4 mg PO Q8H PRN paroxetine HCl 20 mg PO DAILY paroxetine HCl 10 mg PO QAM polyethylene glycol 3350 (Miralax) 17 grams PO DAILY rosuvastatin 20 mg PO BEDTIME 90 days triamcinolone acetonide 0.1% topical zolpidem 10 mg PO BEDTIME PRN Tobacco use date assessed: 03/16/23 Dental Screening Dental Screen Date: 10/10/23 HPI HPI Comments History of Present Illness Details The patient is a 58-year-old female presenting with a request for follow-up care concerning her Type 2 Diabetes Mellitus and various chronic conditions. Today her Hemoglobin A1c was 6.6%, which indicates good glycemic control. She is currently managing her diabetes with Trulicity 1.5 mg and Metformin 850 mg daily. In addition to diabetes, the patient has hyperlipidemia, managed with Rosuvastatin 20 mg, and hypertension, with good control observed today. She experiences gastroesophageal reflux, for which she takes Omeprazole. Her past medical history includes depression, managed with Paroxetine 10 and 20 mg depending on the need, as well as occasional insomnia, for which she uses Z olpidem as needed. The patient also reports occasional dizziness for which she takes Meclizine as necessary. Recently, she has experienced discomfort in her left thigh near a vein that she attributes to past medical interventions but she self-manages this with warm compresses. Her allergies include bee stings and certain medications. [facility] Medical History Hx of acute myeloid leukemia in remission Benign paroxysmal positional vertigo Hospital discharge follow-up Abscess Essential hypertension Diabetes mellitus Migraines Hand numbness Mild persistent asthma Impaired glucose tolerance Mild recurrent major depression Herpes simplex type 2 infection Mixed hyperlipidemia Supraventricular tachycardia Left leg pain GERD (gastroesophageal reflux disease) Insomnia Left knee pain Nausea Depression with anxiety Surgical History History of esophagogastroduodenoscopy (EGD) Hx of colonoscopy History of removal of cyst History of surgery History of total abdominal hysterectomy History of cardiac radiofrequency ablation Family History Father Brain cancer Mother Esophageal cancer Sister Breast cancer Paternal Uncle Diabetes Hypertension Sister Colon cancer, Onset Age: 63 Social History Household Members: Children Housing: House Do you presently have visiting nurse or other home services: Yes Alcohol intake: never Patient Tobacco Use Status: Never used Tobacco e-Cigarette/Vaping Use: Never Used Second Hand Smoke Exposure: No Advance Directives Date on File: 03/11/23 service: No Current occupational status: unemployed Sexual orientation: Straight/Heterosexual Gender identity: Female Cognitive needs: No Hearing needs: No Vision needs: No Female Reproductive History Menstrual Age of Menarche: 13 Questionnaire Thrive Questionnaire Date Thrive assessed: 03/11/23 DICKSON-7 AMB Questionnaire DICKSON-7 Date DICKSON - 7 assessed: 03/16/23 Source: Developed by Drs. Tez Bowen, Bree Perez, Cesar Gonzalez and colleagues, with an educational alexia from [employer]. Review of Systems Const All systems reviewed & are unremarkable except as noted in HPI and below Card Denies chest pain at rest, Denies chest pain with activity, Denies edema, Denies irregular heart rhythm, Denies claudication, Denies dyspnea, Denies dyspnea on exertion, Denies orthopnea, Denies paroxysmal nocturnal dyspnea and Denies slow heart rate Resp Denies cough, Denies dyspnea and Denies dyspnea on exertion GI Denies abdominal pain, Denies change in bowel habits, Denies excessive flatus, Denies nausea and Denies vomiting Denies urinary incontinence, Denies urinary hesitancy and Denies urinary urgency Musc Denies abnormal gait, Denies atrophy, Denies deformity and Denies limited range of motion Skin/Breast Denies bleeding lesions, Denies changing lesions and Denies rash Neuro Denies abnormal gait, Denies behavioral changes and Denies lack of coordination Psych Denies behavioral changes Physical exam (Primary Care) Vital Signs: Last Vital Signs BP 126/80 02/13/24 12:42 BMI result Body Mass Index 33.4 BMI Assessment/Plan discussion: High BMI High, discussed plan: lifestyle, weight reduction, dietary and physical activity Tobacco/Smoking Status: Tobacco use Status Tobacco use date assessed 03/16/23 02/13/24 12:41 Patient Tobacco Use Status Never used Tobacco 02/13/24 12:41 e-Cigarette/Vaping Use Never Used 02/13/24 12:41 Thrive Assessment: Date of Thrive Assessment Date Thrive assessed 03/11/23 02/13/24 12:41 HENMT Head: Yes normal to inspection, Yes normocephalic and Yes atraumatic Ears: external ears normal Eyes General: appearance normal, both eyes and all related structures Eyelids: Yes eyelids normal Conjunctivae: conjunctivae normal Neck Neck: Yes normal visual inspection and Yes supple Resp Effort & Inspection: normal respiratory effort Auscultation: clear to auscultation bilaterally Cardio Jugular venous distension: no JVD Rate: regular rate Rhythm: regular rhythm Heart sounds: S1 normal heart sound present and S2 normal heart sound present GI Inspection: Yes normal to inspection Palpation (GI): Soft to palpation and nontender Auscultation: normal bowel sounds Skin General skin exam: no rashes or lesions noted Neuro General: no focal motor deficits Extrem General: Yes full ROM Psych Appearance: grossly normal Office Procedures Flu Questionnaire Does the patient have a severe egg allergy?: No Does the patient have severe life threatening allergies?: No Does the patient have a fever or illness today?: No Has the patient ever had Guillain-Lucien Syndrome?: No Has the patient ever had any past reaction to a flu shot?: No Results AMB Hemoglobin A1c AMB Hemoglobin A1c 6.6 % Last Edit by REN Schilling on 02/13/24 12:5 0 Immunizations Fluarix Triv [id number] (PF) 45 mcg (15 mcg x 3)/0.5 mL IM syringe Performing Provider: Kayy Aburto MD [facility] Administered by: REN Schilling on 02/13/24 13:06 Dose Route Admin Location Dispensed Lot Number Expiration Date [facility] 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 VIS Given Date VIS Provided VIS Publication Date 02/13/24 Single Vaccine 20 Eligibility Eligibility Date Funding Source Not [facility] Eligible 02/13/24 Private Results Reviewed Results Reviewed: Laboratory Last Values Hgb A1c (Clinic) 6.6 % (4.0-6.0) H 02/13/24 12:49 Coding Level of Care Code Est Pt Level 4 (75316) Complex EM visit Add On G2211 Diagnoses Mixed hyperlipidemia E78.2 Hyperlipidemia LDL goal <70 E78.5 Essential hypertension I10 Type 2 diabetes mellitus without complication, without long-term current use of insulin E11.9 Diabetes mellitus type: type 2 Diabetes mellitus penitentiary insulin use: without computer terminal operator use Diabetes mellitus complication status: without complication Mild recurrent major depression F33.0 Gastroesophageal reflux disease, unspecified whether esophagitis present K21.9 Time Spent (min) 22 Assessment & Plan Assessment & Plan (1) Mixed hyperlipidemia: Code(s): E78.2 - Mixed hyperlipidemia Category: Medical (2) Hyperlipidemia LDL goal <70: Code(s): E78.5 - Hyperlipidemia, unspecified Category: Medical (3) Essential hypertension: Code(s): I10 - Essential (primary) hypertension Category: Medical (4) Diabetes mellitus: Code(s): E11.9 - Type 2 diabetes mellitus without complications Category: Medical Qualifiers: Diabetes mellitus type: type 2 Diabetes mellitus penitentiary insulin use: without computer terminal operator use Diabetes mellitus complication status: without complication Qualified Code(s): E11.9 - Type 2 diabetes mellitus without complications (5) Mild recurrent major depression: Code(s): F33.0 - Major depressive disorder, recurrent, mild Category: Medical (6) GERD (gastroesophageal reflux disease): Code(s): K21.9 - Gastro-esophageal reflux disease without esophagitis Category: Medical Plan - Type 2 Diabetes Mellitus: Continue current medications, including Trulicity and Metformin. Schedule follow-up labs in four months. - Gastroesophageal Reflux Disease: Continue Omeprazole; monitor epigastric discomfort. - Hyperlipidemia: Continue Rosuvastatin 20 mg, repeat lipid panel in July. - Sleep disturbances: Use Zolpidem as necessary. - Depression: Maintain current dosage of Paroxetine as needed based on symptom severity. - Pain in left thigh: Continue self-management with warm compresses; advised aspirin. - Allergies: Avoid identified allergens. Patient was informed and verbally consented to the use of an ambient scribe for clinic note documentation during this visit. I discussed with the patient the management of her Type 2 Diabetes Mellitus, emphasizing the importance of maintaining her current medication regimen due to favorable A1c levels. We reviewed her current medication profile for hyperlipidemia and hypertension, noting controlled laboratory values and vital signs today. The patient expressed concern about vein discomfort in her left thigh, and I suggested continued self-care with warm baths and avoiding unnecessary pressure on the area. Her history of allergies was addressed, reinforcing the need for caution with certain medications and bee exposure. Orders: Orders Influenza [id number] Immunization Today Z23 - Encounter for immunization Microalbumin, Random (w Creat) 4 Months R80.9 - Proteinuria, unspecified Comprehensive [place]. Panel Fast 4 Months E78.2 - Mixed hyperlipidemia AMB Hemoglobin A1c Today E11.9 - Type 2 diabetes mellitus without complications Lipid Panel 4 Months E78.5 - Hyperlipidemia, unspecified Vitamin D 25-OH Total 4 Months E55.9 - Vitamin D deficiency, unspecified Medications: New aspirin (Adult Aspirin Regimen) 81 mg PO DAILY 90 days 90 tabs 0RF tirzepatide (Mounjaro) for 4 weeks 2.5 mg (0.5 mL) subcut QWEEK 4 weeks 2 mL 0RF E11.9 - Type 2 diabetes mellitus without complications, E78.2 - Mixed hyperlipidemia, I10 - Essential (primary) hypertension Patient Instructions: - Continue current diabetes management insulin and oral medications as prescribed. - Maintain the prescribed regimen of antihypertensives and statins. - For epigastric discomfort, continue Omeprazole and monitor symptoms. - Use Zolpidem for sleep disturbances when necessary. - Continue Paroxetine dosage as directed based on symptoms. - Apply warm compresses for left leg discomfort. - Avoid known allergens and [id number] aspirin unless advised. - Schedule follow-up for lab tests in four months.
[2024-02-13 12:42] VITALS: BP 126/80; BMI 33.4
== END 2024-02-13 13:07 | disposition home or self-care (01) ==
PROVIDERS: PCP Internal Medicine; Visit Provider Internal Medicine
DX: I10 Essential (primary) hypertension (principal); E11.69 Type 2 diabetes mellitus with other specified complication; F33.0 Major depressive disorder, recurrent, mild; E78.2 Mixed hyperlipidemia; E78.5 Hyperlipidemia, unspecified; K21.9 Gastro-esophageal reflux disease without esophagitis

== ENCOUNTER → 2024-02-13 12:29 | Outpatient (BNVA) | payer OTHER, SELFPAY | PROVIDERS: PCP Internal Medicine; Visit Provider Internal Medicine | DX: Z23 Encounter for immunization (principal); E78.2 Mixed hyperlipidemia; I10 Essential (primary) hypertension; E11.9 Type 2 diabetes mellitus without complications; F33.0 Major depressive disorder, recurrent, mild; K21.9 Gastro-esophageal reflux disease without esophagitis | CPT/HCPCS: 83036; 90471; 90656; 99212 ==

== ENCOUNTER 2024-03-03 06:35 | Emergency (ER) | payer OTHER, SELFPAY ==
[2024-03-03 06:57] VITALS: BP 119/80; PULSE 92; RESP 20; TEMP 36.4; O2SAT 96; BMI 33.9
[2024-03-03 07:21] LABS: MANUAL DIFF FLAG NO
[2024-03-03 07:23] LABS: Basophils Percent Auto 0.6 % (0-2); Eosinophils Absolute Auto 0.3 X10*3/uL (0.0-0.4); Eosinophils Percent Auto 3.5 % (0-4); Hemoglobin 14.5 g/dl (12.0-16.0); Imm Gran Abs Auto 0.02 X10*3/uL (0.00-0.03); Imm Gran Pct Auto 0.3 % (0.0-0.4); Lymphocytes Absolute Auto 2.8 X10*3/uL (1.2-4.9); Lymphocytes Percent Auto 38.6 % (20-40); Mean Corpuscular HGB Conc 33.7 g/dl (31.0-35.0); Mean Corpuscular Hemoglobin 29.7 pg (27.0-33.0); Mean Corpuscular Volume 87.9 fL (80.0-98.0); Mean Platelet Volume 8.7 fL (9.4-12.3); Monocytes Absolute Auto 0.5 X10*3/uL (0.1-1.2); Monocytes Percent Auto 7.5 % (2-11); Neutrophils Absolute Auto 3.6 x10*3/uL (2.0-8.3); Neutrophils Percent Auto 49.5 % (45-73); Platelet Count 262 X10*3/uL (160-400); Red Blood Count 4.89 X10*6/uL (4.20-5.50); Red Cell Distribution Width 13.4 % (11.0-16.0); White Blood Count 7.2 X10*3/uL (4.8-10.8)
[2024-03-03 07:46] LABS: Alanine Aminotransferase 23 U/L (0-31); Albumin Level 4.3 g/dL (3.5-5.0); Alkaline Phosphatase 87 U/L (39-117); Anion Gap 12 (12-20); Aspartate Amino Transferase 22 U/L (5-31); Bilirubin Direct 0.2 mg/dL (0.0-0.5); Bilirubin Total 0.7 mg/dL (0.0-1.0); Blood Urea Nitrogen 13 mg/dL (9-16); Calcium 9.8 mg/dL (8.4-10.2); Carbon Dioxide 22 mmol/L (22-29); Chloride 112 mmol/L (96-108); Creatinine Clr Calc Pharmacy 86.8; Estimated Glomerular Filt Rate > 60; Glucose Random 166 mg/dL (60-115); Lipase 25 U/L (8-78); Sodium 142 mmol/L (135-145)
--- NOTE | 2024-03-03 08:54 | ED_ITS ---
HPI - Headache General Chief Complaint: Headache Stated Complaint: migraine, dizziness Time Seen by Provider: 03/03/24 07:33 Source: patient Mode of arrival: ambulatory Limitations: no limitations History of Present Illness ED Provider: Dayana Rodriguez NP HPI Narrative: Patient is a 58-year-old female who presents emergency department for evaluation of a migraine headache. By her account this is consistent with previous migraine headaches that she has experienced and none of her following symptoms to be mentioned are abnormal for her. Typically she takes ibuprofen and an [id number] caffeine pill with resolution but this time it has not work. She does admit that previously she has required IV medications in the ED for resolution of her migraine. She reports onset was 2 days ago. Without any precipitating injury. She is experiencing a diffuse headache described as a burning and sharp pain, pressure behind the bilateral brows, nausea and vomiting. Intermittent dizziness associated with this. Denies any recent URI symptoms or associated abdominal pain or urogenital symptoms. Denies any red flag symptoms including fevers, chills, neck stiffness, malaise, aphasia, weakness, poor coordination, descriptors such as ?the worst headache ever ?or ?thunderclap?, or painful temporal region. Denies chest pain, shortness of breath, numbness or tingling of the extremities. Related Data Home Medications ?Medication ?Instructions ?Recorded ?Confirmed lorazepam 1 mg tablet 1 mg PO TID PRN Anxiety 02/13/20 02/13/24 zolpidem 10 mg tablet 10 mg PO BEDTIME PRN Insomnia 02/13/20 02/13/24 fluticasone propionate 115 2 puff PO BID 05/06/21 02/13/24 mcg-salmeterol 21 mcg/actuation HFA inhaler (Advair HFA) loratadine 10 mg tablet 10 mg PO DAILY PRN Allergy Symptoms 08/09/22 02/13/24 paroxetine HCl 10 mg tablet 10 mg PO QAM 08/09/22 02/13/24 triamcinolone acetonide 0.1 % topical 06/20/23 02/13/24 topical ointment paroxetine HCl 40 mg tablet 20 mg PO DAILY 06/30/23 02/13/24 docusate sodium 100 mg capsule 100 mg PO DAILY 12/26/23 02/13/24 (Colace) Previous Rx's ?Medication ?Instructions ?Recorded nebulizers (Aeroneb Go Nebulizer) #1 ea 02/05/21 meclizine 25 mg tablet 25 mg PO Q6H PRN Vertigo #30 tabs 05/16/22 ipratropium bromide 42 mcg (0.06 2 spray intranasal TID-QID PRN 07/09/22 %) nasal spray allergy symptoms 30 days #15 mL blood sugar diagnostic (OneTouch #100 ea 12/23/22 Ultra Test strips) blood-glucose meter (OneTouch #1 ea 12/23/22 Ultra2 Meter) lancets 30 gauge (OneTouch #100 ea 12/23/22 UltraSoft 2 Lancet) omeprazole 20 mg capsule,delayed 20 mg PO DAILY #90 caps 04/04/23 release omalizumab 150 mg subcutaneous 300 mg subcut Q4W 28 days #1 ea 06/16/23 solution (Xolair) metformin 850 mg tablet 850 mg PO DAILY #180 tabs 07/01/23 rosuvastatin 20 mg tablet 20 mg PO BEDTIME 90 days #90 tabs 09/29/23 bisacodyl 5 mg tablet,delayed 5 mg PO DAILY 30 days #30 tabs 10/10/23 release (Dulcolax (bisacodyl)) polyethylene glycol 3350 17 17 g PO DAILY #510 grams 10/10/23 gram/dose oral powder (Miralax) metoprolol succinate 50 mg 50 mg PO DAILY #90 tabs 11/18/23 tablet,extended release 24 hr dulaglutide 1.5 mg/0.5 mL 1.5 mg (0.5 mL) subcut TH #2 mL 12/06/23 subcutaneous pen injector (Trulicity) empagliflozin 10 mg tablet 10 mg PO DAILY 90 days #90 tabs 12/06/23 (Jardiance) ondansetron 4 mg disintegrating 4 mg PO Q8H PRN nausea and 12/09/23 tablet vomiting #10 tabs fenofibrate 54 mg tablet 54 mg PO DAILY #90 tabs 12/24/23 aspirin 81 mg tablet,delayed 81 mg PO DAILY 90 days #90 tabs 02/13/24 release (Adult Aspirin Regimen) tirzepatide 2.5 mg/0.5 mL 2.5 mg (0.5 mL) subcut QWEEK 4 02/13/24 subcutaneous pen injector weeks #2 mL (Mounjaro) Allergies Allergy/AdvReac Type Severity Reaction Status Date / Time bee pollen [BEE STINGS] Allergy Intermediate RASH Verified 03/03/24 07:00 SWELLING PAIN FULL. phentermine Allergy Intermediate ANXIETY Verified 03/03/24 07:00 tramadol Allergy Intermediate stomach Verified 03/03/24 07:00 upset adhesive tape [ADHESIVE TAPE] Allergy Mild RASH Verified 03/03/24 07:00 oxycodone [OXYCODONE] AdvReac Intermediate VOMITING Verified 03/03/24 07:00 acetaminophen [From Percocet] AdvReac Vomiting Verified 03/03/24 07:01 apremilast [From Otezla] AdvReac diarrhea, Verified 03/03/24 07:00 nausea Review of Systems 2 Review of Systems: Yes all other systems are reviewed and are negative PMFSH Past Medical History Attestation statement: The following information was validated with the patient. Source: old records reviewed Medical History Hx of acute myeloid leukemia in remission Benign paroxysmal positional vertigo Hospital discharge follow-up Abscess Essential hypertension Diabetes mellitus Migraines Hand numbness Mild persistent asthma Impaired glucose tolerance Mild recurrent major depression Herpes simplex type 2 infection Mixed hyperlipidemia Supraventricular tachycardia Left leg pain GERD (gastroesophageal reflux disease) Insomnia Left knee pain Nausea Depression with anxiety Surgical History History of esophagogastroduodenoscopy (EGD) Hx of colonoscopy History of removal of cyst History of surgery History of total abdominal hysterectomy History of cardiac radiofrequency ablation Family History Family History Father Brain cancer Mother Esophageal cancer Sister Breast cancer Paternal Uncle Diabetes Hypertension Sister Colon cancer, Onset Age: 63 Social History Social History Household Members: Children Housing: House Do you presently have visiting nurse or other home services: Yes Alcohol intake: never Patient Tobacco Use Status: Never used Tobacco e-Cigarette/Vaping Use: Never Used Second Hand Smoke Exposure: No Advance Directives: Yes Advance Directives on File: Yes Advance Directives Date on File: 03/11/23 Do you have a plan to hurt others: No Plan service: No Current occupational status: unemployed Sexual orientation: Straight/Heterosexual Gender identity: Female Cognitive needs: No Hearing needs: No Vision needs: No Physical Exam 2 Vital Signs: Vital Signs: Last Vital Signs Temp 97.5 F 03/03/24 06:57 Pulse 92 03/03/24 06:57 Resp 20 03/03/24 06:57 BP 119/80 03/03/24 06:57 Pulse Ox 96 03/03/24 06:57 O2 Del Method Room Air 03/03/24 06:57 BMI result Body Mass Index 33.9 Appearance: Alert.?Oriented to person, place and time. No acute distress.?Normal affect. Head: Normocephalic, atraumatic Eyes: Pupils equal, round and reactive to light. EOMI. No nystagmus. No ptosis. No tenderness to palpation over the temporal region. ENT: External auditory canal normal tympanic membrane pearly gutierrez and intact bilaterally. Oropharynx normal. Neck: Normal inspection.? Neck supple. No nuchal rigidity. CVS: Heart sounds normal. Normal heart rate and rhythm.? Pulses normal.?? Respiratory: No respiratory distress.? Lung sounds clear to auscultation bilaterally?? Abdomen: Soft and non-tender. Normoactive bowel sounds. ?? Skin: Skin warm and dry.? Normal skin color.? ?? Extremities: No lower extremity edema.? Neuro: Moves all extremities spontaneously. Sensation intact bilaterally. CN II- XII intact. No focal neuro deficits. Ambulatory with steady gait. Course Reevaluation(s) Reevaluation #1: Patient with a history of recurrent and or similar headache, there is no substantial change to typical headache pattern, there are no red flag symptoms, no focal neurological deficits. She received Reglan/Toradol/Benadryl with significant improvement in her migraine, tolerating oral intake ambulatory with a steady gait. at this time feel that patient is stable for discharge home, patient agreeable with plan of care Medications Administered Discontinued Medications Generic Name Dose Route Start Last Admin Trade Name Freq PRN Reason Stop Dose Admin Diphenhydramine HCl 25 mg 03/03/24 08:52 03/03/24 09:22 Diphenhydramine Hcl 50 Mg/Ml Vial IVPUSH 03/03/24 08:53 25 mg ONCE ONE Administration Sodium Chloride 1,000 mls @ 999 mls/hr 03/03/24 09:00 03/03/24 10:58 Ns IV 03/03/24 10:00 Infused .Q1H1M JUDITH Infusion Ketorolac Tromethamine 15 mg 03/03/24 08:52 03/03/24 09:22 Ketorolac Tromethamine 15 Mg/Ml Vial IVPUSH 03/03/24 08:53 15 mg ONCE ONE Administration Metoclopramide HCl 10 mg 03/03/24 08:52 03/03/24 09:22 Metoclopramide Hcl 10 Mg/2 Ml Vial IVPUSH 03/03/24 08:53 10 mg ONCE ONE Administration Medical Decision Making Medical Decision Making [facility] Narrative: Patient is a 58-year-old female with past medical history of AML in remission s/p chemo, vertigo, hypertension, diabetes, migraines, asthma, depression and anxiety, HSV 2, hyperlipidemia, SVT, GERD, s/p hysterectomy urgency department patient migraine-type headache with typical findings as per HPI. Symptoms at this time favoring migraine headache. She will receive IV Toradol/Reglan/Benadryl and re-evaluation. Differential diagnosis may include SDH, SAH, ICH, WASTE DISPOSAL LEAKAGE TESTER mass however given atraumatic in nature, and consistent with prior migraines, have lower suspicion for such. No nuchal rigidity, fevers chills or confusion, low suspicion for meningitis, encephalitis. No focal neurological deficits to suggest CVA. No temporal region pain to suggest GCA. Lower suspicion for acute angle closure glaucoma, neurosyphilis, History without concerning exposures, not exacerbated or worsened by exertion, no red flag symptoms, no vision changes, no new immunocompromising conditions, no focal neurological abnormalities. Differential Diagnosis Differential Diagnoses: The differential diagnosis associated with the presentation includes (SDH, SAH, ICH, WASTE DISPOSAL LEAKAGE TESTER mass, meningitis, encephalitis, CVA, GCA, migraine, headache) Admission/Observation Consideration of admission/observation: Escalation of care including admission/observation considered (See narrative above) Lab Data [facility] Lab Attestation statement: I reviewed the patient's lab results. CBC is without leukocytosis anemia or thrombocytopenia. No electrolyte derangement. No SIRI. 03/03/24 07:18 03/03/24 07:18 Labs: Lab Results 03/03/24 Range/Units 07:18 WBC 7.2 (4.8-10.8) X10*3/uL RBC 4.89 (4.20-5.50) X10*6/uL Hgb 14.5 (12.0-16.0) g/dl Hct 43.0 (37.0-47.0) % MCV 87.9 (80.0-98.0) fL MCH 29.7 (27.0-33.0) pg MCHC 33.7 (31.0-35.0) g/dl RDW 13.4 (11.0-16.0) % Plt Count 262 (160-400) X10*3/uL MPV 8.7 L (9.4-12.3) fL Immature Gran % (Auto) 0.3 (0.0-0.4) % Neut % (Auto) 49.5 (45-73) % Lymph % (Auto) 38.6 (20-40) % [place] % (Auto) 7.5 (2-11) % Eos % (Auto) 3.5 (0-4) % Baso % (Auto) 0.6 (0-2) % Lymph # (Auto) 2.8 (1.2-4.9) X10*3/uL [place] # (Auto) 0.5 (0.1-1.2) X10*3/uL Eos # (Auto) 0.3 (0.0-0.4) X10*3/uL Baso # (Auto) 0.0 (0.0-0.2) X10*3/uL Abs Immat Gran (auto) 0.02 (0.00-0.03) X10*3/uL Absolute Neuts (auto) 3.6 (2.0-8.3) x10*3/uL Absolute Nucleated RBC 0.000 (0.0-0.012) X10*3/uL Nucleated RBC % (auto) 0.0 (0.0-0.2) /100WBC Sodium 142 (135-145) mmol/L Potassium 4.0 (3.3-5.1) mmol/L Chloride 112 H (96-108) mmol/L Carbon Dioxide 22 (22-29) mmol/L Anion Gap 12 (12-20) BUN 13 (9-16) mg/dL Creatinine 0.86 (0.5-1.4) mg/dL Estim Creat Clear Calc 86.8 Estimated GFR > 60 Random Glucose 166 H (60-115) mg/dL Calcium 9.8 (8.4-10.2) mg/dL Total Bilirubin 0.7 (0.0-1.0) mg/dL Direct Bilirubin 0.2 (0.0-0.5) mg/dL AST 22 (5-31) U/L ALT 23 (0-31) U/L Alkaline Phosphatase 87 (39-117) U/L Total Protein 7.0 (6.5-8.0) g/dL Albumin 4.3 (3.5-5.0) g/dL Lipase 25 (8-78) U/L External Record Review External record reviewed: Outpatient record Prescription Management I considered prescription management with: Pain Medication Discharge Plan Discharge Clinical Impression: Migraines Patient Disposition: Home, Self-Care Instructions: Migraine Headache (ED) Additional Instructions: You can take ibuprofen 200 mg, 3 tablets (600mg) every 6-8 hours as needed for pain, in addition to Tylenol 500 mg, 2 tablets (1,000mg) every 4-6 hours as needed for pain, but not to exceed 3 doses daily (3,000mg).? Continue all your medications as prescribed. Follow-up with your primary care doctor. Return to emergency department any new or worsening symptoms or concerns Prescriptions: No Action (DME) Aeroneb Go Nebulizer [facility] [place] See Rx Instructions .Route Qty: 1 0RF Rx Instructions: As directed (DME) blood-glucose meter [OneTouch Ultra2 Meter] [facility] [place] See Rx Instructions .Route Qty: 1 0RF Rx Instructions: As directed (DME) OneTouch Ultra Test Strip See Rx Instructions .Route Qty: 100 3RF Rx Instructions: Use 1 test strip once a day (DME) lancets [OneTouch UltraSoft 2 Lancet] 30 gauge [facility] [place] See Rx Instructions .Route Qty: 100 3RF Rx Instructions: Use 1 lancet once a day omeprazole 20 mg capsule,delayed release(DR/EC) 20 mg PO DAILY Qty: 90 3RF Xolair 150 mg recon soln 300 mg subcut Q4W 28 Days Qty: 1 12RF Rx Instructions: requires multiple injection sites; do not exceed 150 mg per injection site metformin 850 mg tablet 850 mg PO DAILY Qty: 180 0RF rosuvastatin 20 mg tablet 20 mg PO BEDTIME 90 Days Qty: 90 1RF polyethylene glycol 3350 [Miralax] 17 gram/dose powder 17 g PO DAILY Qty: 510 2RF bisacodyl [Dulcolax (bisacodyl)] 5 mg tablet,delayed release (DR/EC) 5 mg PO DAILY 30 Days Qty: 30 3RF Jardiance 10 mg tablet 10 mg PO DAILY 90 Days Qty: 90 0RF Trulicity 1.5 mg/0.5 mL pen injector 1.5 mg subcut TH Qty: 2 6RF fenofibrate 54 mg tablet 54 mg PO DAILY Qty: 90 0RF meclizine 25 mg Tablet 25 mg PO Q6H PRN (Reason: Vertigo) Qty: 30 0RF paroxetine HCl 40 mg tablet 20 mg PO DAILY lorazepam 1 mg tablet 1 mg PO TID PRN (Reason: Anxiety) zolpidem 10 mg tablet 10 mg PO BEDTIME PRN (Reason: Insomnia) Advair HFA 115-21 mcg/actuation HFA aerosol inhaler 2 puff PO BID triamcinolone acetonide 0.1 % ointment topical paroxetine HCl 10 mg tablet 10 mg PO QAM loratadine 10 mg tablet 10 mg PO DAILY PRN (Reason: Allergy Symptoms) ipratropium bromide 42 mcg (0.06 %) spray,non-aerosol 2 spray intranasal TID-QID PRN (Reason: allergy symptoms) 30 Days Qty: 15 6RF Rx Instructions: administer into each nostril metoprolol succinate 50 mg tablet extended release 24 hr 50 mg PO DAILY Qty: 90 3RF Rx Instructions: dose increased aspirin [Adult Aspirin Regimen] 81 mg tablet,delayed release (DR/EC) 81 mg PO DAILY 90 Days Qty: 90 0RF Mounjaro 2.5 mg/0.5 mL pen injector 2.5 mg subcut QWEEK 28 Days Qty: 2 0RF Rx Instructions: for 4 weeks ondansetron 4 mg tablet,disintegrating 4 mg PO Q8H PRN (Reason: nausea and vomiting) Qty: 10 0RF docusate sodium [Colace] 100 mg capsule 100 mg PO DAILY Referrals: Physician,Unknown J [Primary Care Provider] - Print Language: Yemeni
[2024-03-03] MEDS: 0.9 % Sodium Chloride 1,000 ML 999 ML IV (09:22)
[2024-03-03] MEDS: Metoclopramide HCl 10 MG/2 ML VIAL IVPUSH (09:22)
[2024-03-03] MEDS: diphenhydrAMINE HCL 50 MG/ML VIAL 25 MG IVPUSH (09:22)
[2024-03-03] MEDS: Ketorolac Tromethamine 15 MG/ML VIAL IVPUSH (09:22)
[2024-03-03 11:28] VITALS: BP 119/80; PULSE 92; RESP 18; TEMP 36.4; O2SAT 96
== END 2024-03-03 11:29 | disposition home or self-care (01) ==
PROVIDERS: Emergency Provider Emergency Medicine
DX: G43.909 Migraine, unspecified, not intractable, without status migrainosus (principal); E11.9 Type 2 diabetes mellitus without complications; I10 Essential (primary) hypertension; E78.5 Hyperlipidemia, unspecified; J45.909 Unspecified asthma, uncomplicated; Z79.84 Long term (current) use of oral hypoglycemic drugs; Z79.02 Long term (current) use of antithrombotics/antiplatelets; Z79.85 Long-term (current) use of injectable non-insulin antidiabetic drugs; Z79.82 Long term (current) use of aspirin; Z79.899 Other long term (current) drug therapy
CPT/HCPCS: 36415; 80048; 80076; 83690; 85025; 96361; 96374; 96375; 99283; 99284; J1200; J1885; J2765

== ENCOUNTER 2024-05-24 12:26 | Outpatient (AMB) | payer OTHER, SELFPAY ==
--- NOTE | 2024-05-24 12:49 | A.OFFVIS_ITS ---
Vital Signs 05/24/24 12:50 Height 5 ft 7 in Weight 215 lb 9.793 oz BMI 33.8 BP 124/60 Blood Pressure Location Rt brachial Position Sitting Pulse 78 Pulse Source Monitor Intake Visit Reasons: 6m follow up Medical Physiologist Required: Yes Medical Physiologist Language: Sheet Metal Former Name: voice dale [id number] Allergies bee pollen [BEE STINGS] Allergy (Intermediate, Verified 05/24/24 12:52) RASH SWELLING PAIN FULL. phentermine Allergy (Intermediate, Verified 05/24/24 12:52) ANXIETY tramadol Allergy (Intermediate, Verified 05/24/24 12:52) stomach upset adhesive tape [ADHESIVE TAPE] Allergy (Mild, Verified 05/24/24 12:52) RASH oxycodone [OXYCODONE] Adverse Reaction (Intermediate, Verified 05/24/24 12:52) VOMITING acetaminophen [From Percocet] Adverse Reaction (Verified 05/24/24 12:52) Vomiting apremilast [From Otezla] Adverse Reaction (Verified 05/24/24 12:52) diarrhea, nausea Medication List - Last Reconciled 05/24/24 by Mary Gardner NP-C aspirin (Adult Aspirin Regimen) 81 mg PO DAILY 90 days bisacodyl (Dulcolax (bisacodyl)) 5 mg PO DAILY 30 days bisacodyl (Laxative (bisacodyl)) 5 mg PO DAILY blood sugar diagnostic ([employer] Ultra Test strips) Use 1 test strip once a day blood-glucose meter (AllPlayers.comTouch Ultra2 Meter) As directed dulaglutide (Trulicity) 1.5 mg (0.5 mL) subcut TH empagliflozin (Jardiance) 10 mg PO DAILY 90 days fenofibrate 54 mg PO DAILY fluconazole 150 mg PO Q3D 2 doses fluticasone propion-salmeterol 115-21 mcg/actuation (Advair HFA) 2 puffs PO BID ipratropium bromide 2 sprays intranasal TID-QID PRN 30 days lancets (AllPlayers.comTouch UltraSoft 2 Lancet) Use 1 lancet once a day loratadine 10 mg PO DAILY PRN lorazepam 1 mg PO TID PRN meclizine 25 mg PO Q6H PRN metformin 850 mg PO DAILY metoprolol succinate ER 50 mg PO DAILY nebulizers (Aeroneb Go Nebulizer) As directed omalizumab (Xolair) 300 mg subcut Q4W 28 days omeprazole 20 mg PO DAILY ondansetron 4 mg PO Q8H PRN paroxetine HCl 20 mg PO DAILY paroxetine HCl 10 mg PO QAM polyethylene glycol 3350 (Gavilax) 17 grams PO DAILY rosuvastatin 20 mg PO BEDTIME 90 days tirzepatide (Mounjaro) 2.5 mg (0.5 mL) subcut QWEEK 4 weeks tirzepatide 5 mg (0.5 mL) subcut QWEEK 4 weeks triamcinolone acetonide 0.1% topical zolpidem 10 mg PO BEDTIME PRN HPI HPI 6m follow up: Details: Simi is a 59-year-old female past medical history of hypertension, hyperlipidemia, diabetes, obesity, SVT who presents for follow-up. Today she reports that she will get occasional brief heart palpitations. No sustained rapid or irregular rates. No lightheadedness, presyncope, syncope, falls. No chest discomfort at rest or with activity. She has chronic shortness of breath with exertion which she states is unchanged. No PND, orthopnea or edema. No recurrent or new neurological symptoms. Tolerates normal ADLs without concerning difficulty. Takes meds as directed. 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 [facility] Medical History Hx of acute myeloid leukemia in remission Benign paroxysmal positional vertigo Hospital discharge follow-up Abscess Essential hypertension Diabetes mellitus Migraines Hand numbness Mild persistent asthma Impaired glucose tolerance Mild recurrent major depression Herpes simplex type 2 infection Mixed hyperlipidemia Supraventricular tachycardia Left leg pain GERD (gastroesophageal reflux disease) Insomnia Left knee pain Nausea Depression with anxiety Surgical History History of esophagogastroduodenoscopy (EGD) Hx of colonoscopy History of removal of cyst History of surgery History of total abdominal hysterectomy History of cardiac radiofrequency ablation Family History Father Brain cancer Mother Esophageal cancer Sister Breast cancer Paternal Uncle Diabetes Hypertension Sister Colon cancer, Onset Age: 63 Social History Household Members: Children Housing: House Do you presently have visiting nurse or other home services: Yes Alcohol intake: never Patient Tobacco Use Status: Never used Tobacco e-Cigarette/Vaping Use: Never Used Second Hand Smoke Exposure: No Advance Directives Date on File: 03/11/23 service: No Current occupational status: unemployed Sexual orientation: Straight/Heterosexual Gender identity: Female Cognitive needs: No Hearing needs: No Vision needs: No Female Reproductive History Menstrual Age of Menarche: 13 Review of Systems Const All systems reviewed & are unremarkable except as noted in HPI and below ENT Denies dizziness Card Denies chest pain, Denies chest pain at rest, Denies chest pain with activity, Denies rapid heart rate, Denies pedal edema, Denies edema, Denies leg edema, Denies lightheadedness, Denies palpitations, Denies dyspnea, Denies dyspnea on exertion and Denies orthopnea Resp Denies cough, Denies dyspnea and Denies dyspnea on exertion GI Denies hematochezia and Denies change in stool character Musc Denies abnormal gait, Denies limited range of motion, Denies muscle cramps, Denies muscle weakness, Denies numbness, Denies radiating pain into limb, Denies stiffness and Denies tingling Neuro Denies abnormal gait, Denies dizziness, Denies numbness and Denies tingling Endo Denies palpitations Physical Exam Vital Signs: Last Vital Signs Pulse 78 05/24/24 12:50 BP 124/60 05/24/24 12:50 BMI result Body Mass Index 33.8 Const General: cooperative, healthy appearing and no acute distress Orientation/consciousness: patient oriented x3 Neck Neck: Yes normal visual inspection and Yes no JVD Resp Effort & Inspection: normal respiratory effort Auscultation: clear to auscultation bilaterally, no crackles, no rales, no rhonchi and no wheezes Cardio Rate: regular rate Rhythm: regular rhythm Heart sounds: S1 normal heart sound present, S2 normal heart sound present, no gallops, no murmurs and no rubs Neuro General: patient oriented x3 Extrem General: Yes normal to inspection, No no pedal edema and No calf tenderness Psych Appearance: grossly normal Mental Status: mental status grossly normal Speech and movement: Normal speech and movement present Office Procedures EKG Details: Today, read by me, normal sinus rhythm, rate 78, QTC 471 millisecond [id number], Complete Assessment & Plan Assessment & Plan (1) Supraventricular tachycardia: Code(s): I47.1 - Supraventricular tachycardia Category: Medical Plan: History of supraventricular tachycardia. No recent documented episodes however she does report brief heart palpitations. Holter monitor was done on 05/14/2023 showing sinus rhythm with no significant arrhythmia, average rate 91. Last echo 05/18/2021 showed EF 57%, [id number] focal hypertrophy of the basal septum, grade 1 diastolic dysfunction. Will continue on metoprolol XL 50 mg daily. Reviewed avoidance of caffeinated beverages, maintain good hydration and activity as tolerated. Vagal maneuvers reviewed. Cardiology follow-up 1 year, sooner if needed. ED care if ever needed for sustained rapid palpitations. (2) Essential hypertension: Code(s): I10 - Essential (primary) hypertension Category: Medical Plan: Normal at this time, no med changes made. (3) Hyperlipidemia LDL goal <70: Code(s): E78.5 - Hyperlipidemia, unspecified Category: Medical Plan: Blue LDL goal less than 70 in patient with diabetes. Continue on rosuvastatin. Followed by PCP. 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 Followed by PCP (5) Palpitation: Code(s): R00.2 - Palpitations Category: Medical Plan: As above Plan Time spent on chart review, documentation, interview and assessment Coding Level of Care Code Est Pt Level 3 (46234) Complex EM visit Add On G2211 Diagnoses Supraventricular tachycardia I47.1 Essential hypertension I10 Hyperlipidemia LDL goal <70 E78.5 Type 2 diabetes mellitus without complication, without long-term current use of insulin E11.9 Diabetes mellitus complication status: without complication Diabetes mellitus senior living insulin use: without senior living use Diabetes mellitus type: type 2 Palpitation R00.2 CPT Codes EKG - CPT: 96021-[id number], Complete ([id number]) Time Spent (min) 24
[2024-05-24 12:50] VITALS: BP 124/60; PULSE 78; BMI 33.8
--- OUTSIDE RECORDS SUMMARY | 2024-05-24 14:44 | XMS_ITS | Data Portability ---
Author Organization [place] - [facility], Allergy Address [address] [place] [phone] Care Team Providers Care Credit Administration Manager Name Role Phone FRANK TAMIA MCKEON Referring Provider Assessment Encounter Date Assessment Date Assessment LastModified by Organization Details LastModified Time 03/28/2024 03/28/2024 58 year old female presents to the office for evaluation of her ears. TMs intact and middle ear spaces well aerated. Audiometric testing today reveals normal hearing with the exception of a mild sensorineural hearing loss at 3000 Hz bilaterally. Type A tympanometry bilaterally. Patient to follow up as needed. [email or web address] Not available 03/28/2024 10:54:49 Plan of Treatment Reminders Order Date Submit Date Provider Last Modified By Organization Details Last Modified Time Details Appointments None record ed. Lab None record ed. Referral None record ed. Procedures None record ed. Surgeries None record ed. Imaging None record ed. Medication Orders None record ed. Patient TargetsNo targets recorded. Patient InstructionsNo instructions recorded. Reason for Referral None Reported. Results Created Date Observation Date Name Description Value Unit Range Abnormal Flag Note LastModifiedBy Organization Detail LastModifiedTime 03/28/19 25 audio gram No observ ation record ed. BARCODE Not Available 2024 13:53:06 Result Notes None recorded. Problems Name Problem SNOMED Code Status Onset Date Resolution Date Notes Provider Name and Address Organization Details Recorded Time Deviated nasal septum 150147756 Active 2016 Deviated nasal septum; Note: Date Diagnosed: 05/06/2016 9:16 AM (J34.2) Not Available [facility] 4 02:50:30 Allergic rhinitis caused by pollen 30709622 Active 2015 Allergic rhinitis due to pollen; Note: Date Diagnosed: 11/18/2015 10:39 AM (J30.1) Not Available [facility] 4 02:50:33 Allergic rhinitis 64324925 Active 2016 Other allergic rhinitis; Note: Date Diagnosed: 05/06/2016 9:16 AM (J30.89) Jennifer l allergic rhinitis; Note: Date Diagnosed: 11/18/2015 10:39 AM (J30.89) ; Start Date : 11/18/2015 Not Available [facility] 4 02:50:28 Asthma 965704537 Active 2016 Other asthma; Note: Date Diagnosed: 05/06/2016 9:16 AM (J45.998) Not Available [facility] 4 02:50:30 Obstructi ve sleep apnea syndrome 60815807 Active 2016 Obstructiv e sleep apnea (adult) (pediatric ); Note: Date Diagnosed: 05/06/2016 9:16 AM (G47.33) Not Available [facility] 4 02:50:31 Chronic rhinitis 62833167 Active 2015 Chronic rhinitis; Note: Date Diagnosed: 10/23/2015 4:13 PM (J31.0) Not Available [facility] 4 02:50:32 Sensorine ural hearing loss of bilateral ears 777979033 Active 2024 A[address]YN W[address]LL [address] [place] [address], [phone] , [facility] 5 10:08:59 Problem Notes None recorded. Procedures Surgical History Date Name Laterality Status Provider Name and Address Organization Details Recorded Time 03/28/2024 Comp Audio with Tymps (38254 & 88747) completed AUSTYN WADDELL [address] [place] [address], [phone], [facility] 03/28/2024 10:08:52 Imaging Results Imaging Date Name Status LastModified by Organiz ation Details LastModified Time 03/28/2024 audiogram completed BARCODE Information no t available 03/28/2024 13:53:06 Procedure Notes None recorded. Medical Equipment None Reported. Medications Name Sig Start Date Stop Date Status Note LastModified by Organization Details LastModified Time cyclobenza salo 10 mg tablet 2015 active Medicatio n ID: [id number] Du ration Value: 30 Brand Name: cyclobenz aprine Se nd Method: E-Prescri bed Subs Allowed: subs OK Medica tionGener icName: cyclobenz aprine Not Available Not Available Not Available Qvar 80 mcg/actuat ion Metered Aerosol oral inhaler 2015 active Medicatio n ID: [id number] Du ration Value: 30 Brand Name: Qvar Send Method: E-Prescri bed Subs Allowed: subs OK Specia l Instructi on: TK 1 PUFF PO BID WITH SPACER FOR 30 DAYS Medi cationGen ericName: Qvar Not Available Not Available Not Available gabapentin 600 mg tablet 2015 active Medicatio n ID: [id number] Du ration Value: 30 Brand Name: gabapenti n Send Method: E-Prescri bed Subs Allowed: subs OK Specia l Instructi on: TK 1 T PO TID Medic ationGene ricName: gabapenti n Not Available Not Available Not Available propranolo l 80 mg tablet 2015 active Medicatio n ID: [id number] Br and Name: propranol ol Send Method: E-Prescri bed Subs Allowed: subs OK Medica tionGener icName: propranol ol Not Available Not Available Not Available paroxetine 10 mg tablet TAKE 1 TABLET BY MOUTH EVERY MORNING TAKE WITH PAXIL 40 MG TO MAKE TOTAL DOSE OF 50 MG active Not Available Not Available No t Available ketoconazo le 2 % shampoo APPLY TO SCALP 2-3X WEEKLY. LET SIT ON SCALP FOR 10 MINUTES THEN LATHER AND RINSE active Not Available Not Available No t Available albuterol sulfate 2.5 mg/3 mL (0.083 %) solution for nebulizati on 2015 active Medicatio n ID: [id number] Du ration Value: 25 Brand Name: Albuterol Sulfate S end Method: E-Prescri bed Subs Allowed: subs OK Specia l Instructi on: USE 1 VIAL VIA NEBULIZER TID Medic ationGene ricName: Albuterol Sulfate Not Available Not Available Not Available fluconazol e 150 mg tablet TAKE 1 TABLET BY MOUTH DAILY FOR 1 DAY active Not Available Not Available No t Available metoprolol succinate ER 50 mg tablet,ext ended release 24 hr TAKE 1 TABLET BY MOUTH DAILY active Not Available Not Available No t Available valacyclov ir 1 gram tablet TAKE 1 TABLET BY MOUTH THREE TIMES DAILY FOR 7 DAYS active Not Available Not Available No t Available meloxicam 15 mg tablet TAKE 1 TABLET BY MOUTH DAILY NEEDED FOR PAIN active Not Available Not Available No t Available metronidaz ole 0.75 % (37.5 mg/5 gram) vaginal gel APPLY 1 APPLICATI ON VAGINALLY DAILY FOR 5 DAYS active Not Available Not Available No t Available prednisone 20 mg tablet TAKE 1 TABLET BY MOUTH DAILY active Not Available Not Available No t Available metformin 850 mg tablet TAKE 1 TABLET BY MOUTH ONCE DAILY active Not Available Not Available No t Available peg-electr olyte solution 420 gram oral solution DRINK 240ML BY MOUTH EVERY 10 MINUTES UNTIL FECAL EFFLUENT IS CLEAR active Not Available Not Available No t Available aspirin 81 mg tablet,del ayed release TAKE 1 TABLET BY MOUTH DAILY active Not Available Not Available No t Available butalbital -acetamino phen-caffe ine 50 mg-325 mg-40 mg tablet 2015 active Medicatio n ID: [id number] Du ration Value: 30 Brand Name: butalbita l-acetami nophen-ca ff Send Method: E-Prescri bed Subs Allowed: subs OK Specia l Instructi on: TK 1 T PO QD PRF PAZ Medica tionGener icName: butalbita l-acetami nophen-ca ff Not Available Not Available Not Available Medrol 4 mg tablet 2015 active Medicatio n ID: [id number] Br and Name: Medrol Se nd Method: E-Prescri bed Subs Allowed: subs OK Medica tionGener icName: Medrol Not Available Not Available Not Available methotrexa te sodium 2.5 mg tablet TAKE 2 TABLETS THEN CHECK CBC 7 DAYS LATER active Not Available Not Available No t Available benzonatat e 100 mg capsule TAKE 1 CAPSULE BY MOUTH TWICE DAILY FOR 5 DAYS NEEDED FOR COUGH active Not Available Not Available No t Available flunisolid e 25 mcg (0.025 %) nasal spray 2015 active Medicatio n ID: [id number] Du ration Value: 30 Brand Name: tomas [place] Send Method: E-Prescri bed Subs Allowed: subs OK Specia l Instructi on: INL ONCE IEN D Medicat ionGeneri cName: tomas de Not Available Not Available Not Available paroxetine 20 mg tablet 2015 active Medicatio n ID: [id number] Du ration Value: 30 Brand Name: paroxetin e HCl Send Method: E-Prescri bed Subs Allowed: subs OK Specia l Instructi on: TK 1 T PO QAM Medic ationGene ricName: paroxetin e HCl Not Available Not Available Not Available erythromyc in 5 mg/gram (0.5 %) eye ointment APPLY 1/2 INCH STRIP TO LEFT EYE FOUR TIMES DAILY active Not Available Not Available No t Available triamcinol one acetonide 0.1 % topical ointment active Not Available Not Available Not Available omeprazole 20 mg capsule,de layed release TAKE 1 CAPSULE BY MOUTH DAILY active Not Available Not Available No t Available folic acid 1 mg tablet active Not Available Not Available Not Available mupirocin 2 % topical ointment APPLY TO THE AFFECTED AREA ON ABDOMEN TWICE DAILY FOR 14 DAYS active Not Available Not Available No t Available metoprolol succinate ER 25 mg tablet,ext ended release 24 hr TAKE 1 TABLET BY MOUTH DAILY active Not Available Not Available No t Available clobetasol 0.05 % topical ointment active Not Available Not Available Not Available lorazepam 1 mg tablet TAKE 1 TABLET BY MOUTH THREE TIMES DAILY NEEDED active Not Available Not Available No t Available epinephrin e 0.3 mg/0.3 mL injection, auto-injec tor INJECT 1 PEN IN THE MUSCLE ONE TIME DIRECTED active Not Available Not Available No t Available Tylenol-Co deine #3 300 mg-30 mg tablet 2015 active Medicatio n ID: [id number] Br and Name: Tylenol-C odeine #3 Send Method: E-Prescri bed Subs Allowed: subs OK Medica tionGener icName: Tylenol-C odeine #3 Not Available Not Available Not Available zolpidem 10 mg tablet TAKE 1 TABLET BY MOUTH AT BEDTIME NEEDED active Not Available Not Available No t Available paroxetine 40 mg tablet TAKE 1 TABLET BY MOUTH AT BEDTIME active Not Available Not Available No t Available hydrocorti sone 2.5 % topical ointment APPLY TOPICALLY TO THE AFFECTED AREA TWICE DAILY NEEDED active Not Available Not Available No t Available oxybutynin chloride 5 mg tablet 2015 active Medicatio n ID: [id number] Du ration Value: 30 Brand Name: oxybutyni n chloride Send Method: E-Prescri bed Subs Allowed: subs OK Specia l Instructi on: TK 1 T PO BID Medic ationGene ricName: oxybutyni n chloride Not Available Not Available Not Available ondansetro n 4 mg disintegra ting tablet DISSOLVE 1 TABLET ON THE TONGUE EVERY 8 HOURS NEEDED FOR NAUSEA OR VOMITING active Not Available Not Available No t Available phentermin e 37.5 mg capsule 2015 active Medicatio n ID: [id number] Br and Name: phentermi ne Send Method: E-Prescri bed Subs Allowed: subs OK Medica tionGener icName: phentermi ne Not Available Not Available Not Available loratadine 10 mg tablet TAKE 1 TABLET BY MOUTH DAILY active Not Available Not Available No t Available risperidon e 0.5 mg tablet 2015 active Medicatio n ID: [id number] Du ration Value: 30 Brand Name: risperido ne Send Method: E-Prescri bed Subs Allowed: subs OK Specia l Instructi on: TK 1 T PO QHS Medic ationGene ricName: risperido ne Not Available Not Available Not Available oxycodone 5 mg tablet 2015 active Medicatio n ID: [id number] Du ration Value: 3 Brand Name: oxycodone Send Method: E-Prescri bed Subs Allowed: subs OK Medica tionGener icName: oxycodone Not Available Not Available Not Available Laxative (bisacodyl ) 5 mg tablet TAKE 1 TABLET BY MOUTH DAILY active Not Available Not Available No t Available rosuvastat in 20 mg tablet TAKE 1 TABLET BY MOUTH AT BEDTIME active Not Available Not Available No t Available Vesicare 5 mg tablet 2015 active Medicatio n ID: [id number] Du ration Value: 30 Brand Name: Vesicare Send Method: E-Prescri bed Subs Allowed: subs OK Specia l Instructi on: TK 1 T PO D Medicat ionGeneri cName: Vesicare Not Available Not Available Not Available Colace 2015 active Medicatio n ID: [id number] Br and Name: colace Se nd Method: E-Prescri bed Subs Allowed: subs OK Medica tionGener icName: colace Not Available Not Available Not Available naphazolin e 2015 active Medicatio n ID: [id number] Br and Name: naphazoli ne Send Method: E-Prescri bed Subs Allowed: subs OK Medica tionGener icName: naphazoli ne Not Available Not Available Not Available promethazi ne 2015 active Medicatio n ID: [id number] Br and Name: promethaz ine Send Method: E-Prescri bed Subs Allowed: subs OK Medica tionGener icName: promethaz ine Not Available Not Available Not Available Qvar 2015 active Medicatio n ID: [id number] Br and Name: qvar Send Method: E-Prescri bed Subs Allowed: subs OK Medica tionGener icName: qvar Not Available Not Available Not Available Xopenex HFA 45 mcg/actuat ion aerosol inhaler 2015 active Medicatio n ID: [id number] Du ration Value: 15 Brand Name: Xopenex HFA Send Method: E-Prescri bed Subs Allowed: subs OK Medica tionGener icName: Xopenex HFA Not Available Not Available Not Available fenofibrat e 54 mg tablet TAKE 1 TABLET BY MOUTH DAILY active Not Available Not Available No t Available Gavilax 17 gram/dose oral powder DISSOLVE 17 GM IN BEVERAGE AND DRINK DAILY active Not Available Not Available No t Available Dexilant 60 mg capsule, delayed release 2015 active Medicatio n ID: [id number] Du ration Value: 30 Brand Name: Dexilant Send Method: E-Prescri bed Subs Allowed: subs OK Specia l Instructi on: TK 1 C PO QPM AT SUPPER OR HS Medica tionGener icName: Dexilant Not Available Not Available Not Available lidocaine 5 % topical ointment 2015 active Medicatio n ID: [id number] Du ration Value: 15 Brand Name: lidocaine Send Method: E-Prescri bed Subs Allowed: subs OK Specia l Instructi on: SEEMA EXT AA TID PRN Medic ationGene ricName: lidocaine Not Available Not Available Not Available Jardiance 10 mg tablet TAKE 1 TABLET BY MOUTH EVERY DAY active Not Available Not Available No t Available Trulicity 1.5 mg/0.5 mL subcutaneo us pen injector ADMINISTE R 1.5 MG UNDER THE SKIN EVERY TUESDAY active Not Available Not Available No t Available Xolair 150 mg/mL subcutaneo us syringe active Not Available Not Available N ot Available Mounjaro 2.5 mg/0.5 mL subcutaneo us pen injector ADMINISTE R 2.5 MG UNDER THE SKIN EVERY WEEK FOR 4 WEEKS active Not Available Not Available No t Available Vitals Date Recorded Body weight Body mass index (BMI) Body height Provider Name and Address Organization Details Last Updated DateTime 03/28/2024 624477.09 g 39.2 kg/m2 170.18 cm Clarice Roberts [place] - [facility] 03/28/2024 10:24:20 Social History None recorded. Functional Status None recorded. Mental Status None recorded. Family History Nothing Reported. Medical History No medical history recorded. Gynecological HistoryNo gynecological history recorded. Obstetrics History GPAL:G 0 P 0 0 0 0 Past Encounters Encounter ID Performer Location Encounter Start Date Encounter Closed Date Diagnosis/Indication Diagnosis SNOMED-CT Code Diagnosis ICD10 Code Diagnosis Note [id number] JANINE HART MD [facility] [address] [phone] 03/28/2024 09:30:25 03/28/2024 10:31:51 Sensorineural hearing loss of bilateral ears [id number] H90.3 Audiologic al evaluation results: Right ear: {{Normal* Normal through 2 kHz Mild M oderate Mo derately-s evere Fidelina re Profoun d}} {{hearing hearing. s loping to a mild slopi ng to a moderate s loping to moderately severe slo ping to severe slo ping to profound f lat high frequency low frequency mid frequency cookie bite mcknight curve hear ing with the exception of a mild SNHL at 3000Hz#}} {{with* se nsorineura l hearing loss with condu ctive hearing loss with mixed hearing loss with}} {{excellen t* good fa ir poor no measurable }} word recognitio n. Left ear: {{Normal* Normal through 2 kHz Mild M oderate Mo derately-s evere Fidelina re Profoun d}} {{hearing hearing. s loping to a mild slopi ng to a moderate s loping to moderately severe slo ping to severe slo ping to profound f lat high frequency low frequency mid frequency cookie bite mcknight curve hear ing with the exception of a mild SNHL at 3000Hz#}} {{with* se nsorineura l hearing loss with condu ctive hearing loss with mixed hearing loss with}} {{excellen t* good fa ir poor no measurable }} word recognitio n. Tympanomet ry: Right Ear:{{Type A* Type As Type Ad Type C Type C, shallow & rounded Ty pe B Type B with large volume Cou ld not maintain a hermetic seal}} Left Ear:{{Type A* Type As Type Ad Type C Type C, shallow & rounded Ty pe B Type B with large volume Cou ld not maintain a hermetic seal}} Health Concerns Section Related Observation LastModified by Organization Detai ls LastModified Time None Recorded Concern Status LastModified by Organization Details LastModified Time None Recorded Advance Directives Directive None Recorded Payers Encounter Date Sequence Insurance Name Policy Number Policy Soto Covered Member ID Soto Member ID Guarantor Name 03/28/[address] [facility] - DOS ON OR AFTER 2022 - ONE CARE (MEDICARE REPLACEMENT/ADV ANTAGE - HMO) Simi Garza [id number] Simi Garza Notes Date Note Type Note Provider Name and Address Organization Details Recorded Time 03/28/2024 text/html 58 year old niesha sotelo presents to the office for evaluation of her ears. She reports left ear infection back in August and reports that she had diminished left side hearing at that time. She was given ear drops and antibiotics by her PCP and her infection resolved. Her ears feel normal today and she has no hearing concerns. She reports no significant loud noise exposure, no family history of hearing loss and no ear surgeries. JANINE HART MD [address] [place] [address], [phone], [facility] - [facility] 03/28/2024 12:42:32 OBGyn Episode No OBEpisode recorded.
== END 2024-05-24 13:19 | disposition home or self-care (01) ==
LOC: HO.HCS 12:27
PROVIDERS: PCP Internal Medicine; Visit Provider Nurse Practitioner Family
DX: I47.10 Supraventricular tachycardia, unspecified (principal); I10 Essential (primary) hypertension; E78.5 Hyperlipidemia, unspecified; E11.9 Type 2 diabetes mellitus without complications; R00.2 Palpitations
CPT/HCPCS: 93010; 99213; G2211

== ENCOUNTER → 2024-05-24 12:26 | Outpatient (BNVA) | payer OTHER, SELFPAY | PROVIDERS: PCP Internal Medicine; Visit Provider Nurse Practitioner Family | DX: I10 Essential (primary) hypertension (principal); I47.10 Supraventricular tachycardia, unspecified; E78.5 Hyperlipidemia, unspecified; E11.9 Type 2 diabetes mellitus without complications; R00.2 Palpitations; E66.9 Obesity, unspecified; Z68.33 Body mass index [BMI] 33.0-33.9, adult | CPT/HCPCS: 93005; 99212 ==

== ENCOUNTER 2024-05-29 09:34 | Outpatient (REF) | payer OTHER, SELFPAY ==
[2024-05-31 22:17] LABS: TS Negative Control Passed; TS Panel A 0; TS Panel B 0; TSpotTB Negative (Negative)
[2024-05-31 22:18] LABS: TS Positive Control Passed
== END 2024-05-29 09:35 | disposition home or self-care (01) ==
LOC: HO.LAB 09:34
PROVIDERS: PCP Internal Medicine; Visit Provider Dermatology
DX: L40.0 Psoriasis vulgaris (principal); L70.0 Acne vulgaris
CPT/HCPCS: 36415; 86481

== ENCOUNTER 2024-06-15 07:11 | Outpatient (REF) | payer OTHER, SELFPAY ==
--- OUTSIDE RECORDS SUMMARY | 2024-06-15 07:15 | XMS_ITS | Data Portability ---
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 Role Phone FRANK TAMIA MCKEON Referring [...] Organization Details Recorded Time Deviated nasal septum [id number] Active 2016 Deviated nasal septum; Note: Date Diagnosed: 05/06/2016 9:16 AM (J34.2) Not Available [facility] 4 02:50:30 Allergic rhinitis caused by pollen 84635244 Active 2015 Allergic rhinitis due to pollen; Note: Date Diagnosed: 11/18/2015 10:39 AM (J30.1) Not Available [facility] 4 02:50:33 Allergic rhinitis 88112291 Active 2016 Other allergic rhinitis; Note: Date Diagnosed: 05/06/2016 9:16 AM (J30.89) Jennifer l allergic rhinitis; Note: Date Diagnosed: 11/18/2015 10:39 AM (J30.89) ; Start Date : 11/18/2015 Not Available [facility] 4 02:50:28 Asthma 482794738 Active 2016 Other asthma; Note: Date Diagnosed: 05/06/2016 9:16 AM (J45.998) Not Available [facility] 4 02:50:30 Obstructi ve sleep apnea syndrome 01687622 Active 2016 Obstructiv e sleep apnea (adult) (pediatric ); Note: Date Diagnosed: 05/06/2016 9:16 AM (G47.33) Not Available [facility] 4 02:50:31 Chronic rhinitis 96501933 Active 2015 Chronic rhinitis; Note: Date Diagnosed: 10/23/2015 4:13 PM (J31.0) Not Available [facility] 4 02:50:32 Sensorine ural hearing loss of bilateral ears 576890606 Active 2024 AUSTYN WADDELL [address] [place] [address], [phone] , [facility] 5 10:08:59 Problem Notes None recorded. Procedures Surgical History Date Name Laterality Status Provider Name and Address Organization Details Recorded Time 03/28/2024 Comp Audio with Tymps (53310 & 36480) completed AUSTYN WADDELL [address] [place] [address], [phone], [facility] 03/28/2024 10:08:52 Imaging Results Imaging Date Name Status LastModified by Organiz ation Details LastModified Time 03/28/2024 audiogram completed BARCODE Information no t available 03/28/2024 13:53:06 Procedure Notes None recorded. Medical Equipment None Reported. Medications Name Sig Start Date Stop Date Status Note LastModified by Organization Details LastModified Time cyclobenza salo 10 mg tablet 2015 active Medicatio n ID: [id number] Du ration Value: 30 Brand Name: cyclobenz aprine Se nd Method: E-Prescri bed Subs Allowed: subs OK Medica tionGener icName: cyclobenz aprine Not Available Not Available Not Available Qvar 80 mcg/actuat ion Metered Aerosol oral inhaler 2015 active Medicatio n ID: [id number] Du ration Value: 30 Brand Name: Qvar Send Method: E-Prescri bed Subs Allowed: subs OK Specia l Instructi on: TK 1 PUFF PO BID WITH SPACER FOR 30 DAYS Medi cationGen ericName: Qvar Not Available Not Available Not Available gabapentin 600 mg tablet 2015 active Medicatio n ID: [id number] Du ration Value: 30 Brand Name: gabapenti n Send Method: E-Prescri bed Subs Allowed: subs OK Specia l Instructi on: TK 1 T PO TID Medic ationGene ricName: gabapenti n Not Available Not Available Not Available propranolo l 80 mg tablet 2015 active Medicatio n ID: [id number] Br and Name: propranol ol Send Method: [...] nebulizati on 2015 active Medicatio n ID: [id number] Du ration Value: 25 Brand Name: Albuterol [...] mg tablet 2015 active Medicatio n ID: [id number] Du ration Value: 30 Brand Name: butalbita l-acetami nophen-ca ff Send Method: E-Prescri bed Subs Allowed: subs OK Specia l Instructi on: TK 1 T PO QD PRF PAZ Medica tionGener icName: butalbita l-acetami nophen-ca ff Not Available Not Available Not Available Medrol 4 mg tablet 2015 active Medicatio n ID: [id number] Br and Name: Medrol Se nd Method: [...] nasal spray 2015 active Medicatio n ID: [id number] Du ration Value: 30 Brand Name: tomas hampton Send Method: E-Prescri bed Subs Allowed: subs OK Specia l Instructi on: INL ONCE IEN D Medicat ionGeneri cName: tomas de Not Available Not Available Not Available paroxetine 20 mg tablet 2015 active Medicatio n ID: [id number] Du ration Value: 30 Brand Name: paroxetin [...] mg tablet 2015 active Medicatio n ID: [id number] Br and Name: Tylenol-C odeine #3 Send [...] mg tablet 2015 active Medicatio n ID: [id number] Du ration Value: 30 Brand Name: oxybutyni [...] mg capsule 2015 active Medicatio n ID: [id number] Br and Name: phentermi ne Send Method: E-Prescri bed Subs Allowed: subs OK Medica tionGener icName: phentermi ne Not Available Not Available Not Available loratadine 10 mg tablet TAKE 1 TABLET BY MOUTH DAILY active Not Available Not Available No t Available risperidon e 0.5 mg tablet 2015 active Medicatio n ID: [id number] Du ration Value: 30 Brand Name: risperido ne Send Method: E-Prescri bed Subs Allowed: subs OK Specia l Instructi on: TK 1 T PO QHS Medic ationGene ricName: risperido ne Not Available Not Available Not Available oxycodone 5 mg tablet 2015 active Medicatio n ID: [id number] Du ration Value: 3 Brand Name: oxycodone [...] mg tablet 2015 active Medicatio n ID: [id number] Du ration Value: 30 Brand Name: Vesicare Send Method: E-Prescri bed Subs Allowed: subs OK Specia l Instructi on: TK 1 T PO D Medicat ionGeneri cName: Vesicare Not Available Not Available Not Available Colace 2015 active Medicatio n ID: [id number] Br and Name: colace Se nd Method: E-Prescri bed Subs Allowed: subs OK Medica tionGener icName: colace Not Available Not Available Not Available naphazolin e 2015 active Medicatio n ID: [id number] Br and Name: naphazoli ne Send Method: E-Prescri bed Subs Allowed: subs OK Medica tionGener icName: naphazoli ne Not Available Not Available Not Available promethazi ne 2015 active Medicatio n ID: [id number] Br and Name: promethaz ine Send Method: E-Prescri bed Subs Allowed: subs OK Medica tionGener icName: promethaz ine Not Available Not Available Not Available Qvar 2015 active Medicatio n ID: [id number] Br and Name: qvar Send Method: E-Prescri bed Subs Allowed: subs OK Medica tionGener icName: qvar Not Available Not Available Not Available Xopenex HFA 45 mcg/actuat ion aerosol inhaler 2015 active Medicatio n ID: [id number] Du ration Value: 15 Brand Name: Xopenex [...] delayed release 2015 active Medicatio n ID: [id number] Du ration Value: 30 Brand Name: Dexilant Send Method: E-Prescri bed Subs Allowed: subs OK Specia l Instructi on: TK 1 C PO QPM AT SUPPER OR HS Medica tionGener icName: Dexilant Not Available Not Available Not Available lidocaine 5 % topical ointment 2015 active Medicatio n ID: [id number] Du ration Value: 15 Brand Name: lidocaine [...] Address Organization Details Last Updated DateTime 03/28/2024 965580.09 g 39.2 kg/m2 170.18 cm Clarice Roberts [place] - [facility] 03/28/2024 10:24:20 Social History None recorded. Functional Status None recorded. Mental Status None recorded. Family History Nothing Reported. Medical History No medical history recorded. Gynecological HistoryNo gynecological history recorded. Obstetrics History GPAL:G 0 P 0 0 0 0 Past Encounters Encounter ID Performer Location Encounter Start Date Encounter Closed Date Diagnosis/Indication Diagnosis SNOMED-CT Code Diagnosis ICD10 Code Diagnosis Note [id number] JANINE HART MD [facility] [address] [address] 03/28/2024 09:30:25 03/28/2024 10:31:51 Sensorineural hearing loss of bilateral ears [id number] H90.3 Audiologic al evaluation results: Right ear: [...] Member ID Guarantor Name 03/28/[address] [facility] - DOS ON OR AFTER 2022 - ONE CARE (MEDICARE REPLACEMENT/ADV ANTAGE - HMO) Simi Garza [id number] Simi Garza Notes Date Note Type Note [...] and no ear surgeries. JANINE HART MD [address] [place] [address], [phone], [facility] - [facility] 03/28/2024 12:42:32 OBGyn Episode No OBEpisode recorded.
[2024-06-15 07:31] LABS: MANUAL DIFF FLAG NO
[2024-06-15 07:59] LABS: Basophils Absolute Auto 0.1 X10*3/uL (0.0-0.2); Basophils Percent Auto 0.7 % (0-2); Eosinophils Absolute Auto 0.2 X10*3/uL (0.0-0.4); Eosinophils Percent Auto 3.1 % (0-4); Hematocrit 42.4 % (37.0-47.0); Hemoglobin 14.3 g/dl (12.0-16.0); Imm Gran Abs Auto 0.03 X10*3/uL (0.00-0.03); Imm Gran Pct Auto 0.4 % (0.0-0.4); Lymphocytes Absolute Auto 2.7 X10*3/uL (1.2-4.9); Lymphocytes Percent Auto 37.5 % (20-40); Mean Corpuscular HGB Conc 33.7 g/dl (31.0-35.0); Mean Corpuscular Hemoglobin 29.7 pg (27.0-33.0); Mean Platelet Volume 8.6 fL (9.4-12.3); Monocytes Absolute Auto 0.5 X10*3/uL (0.1-1.2); Monocytes Percent Auto 7.4 % (2-11); Neutrophils Absolute Auto 3.6 x10*3/uL (2.0-8.3); Neutrophils Percent Auto 50.9 % (45-73); Platelet Count 268 X10*3/uL (160-400); Red Blood Count 4.82 X10*6/uL (4.20-5.50); Red Cell Distribution Width 13.8 % (11.0-16.0); White Blood Count 7.2 X10*3/uL (4.8-10.8)
[2024-06-15 08:31] LABS: Alanine Aminotransferase 27 U/L (0-31); Albumin Level 4.1 g/dL (3.5-5.0); Alkaline Phosphatase 106 U/L (39-117); Anion Gap 12 (12-20); Aspartate Amino Transferase 22 U/L (5-31); Bilirubin Total 0.6 mg/dL (0.0-1.0); Blood Urea Nitrogen 16 mg/dL (9-16); Calcium 9.7 mg/dL (8.4-10.2); Carbon Dioxide 24 mmol/L (22-29); Chloride 111 mmol/L (96-108); Cholesterol 201 mg/dL (<200); Estimated Glomerular Filt Rate > 60; Glucose Fasting 148 mg/dL (60-99); HDL Cholesterol 56 mg/dL (>40); LDL Cholesterol Calculated 93 mg/dL (<100); Potassium 3.9 mmol/L (3.3-5.1); Sodium 143 mmol/L (135-145); Total Protein 6.8 g/dL (6.5-8.0); Triglycerides 263 mg/dL (<150)
[2024-06-15 08:45] LABS: Vitamin D 25-OH Total 27.3 ng/mL (>30)
[2024-06-15 08:59] LABS: Folate 13.7 ng/mL (> or = 4.0); Vitamin B12 379 pg/mL (200-900)
[2024-06-15 10:04] LABS: Creatinine Urine 67.32 mg/dL; Microalbumin Urine < 5.0 mg/L
== END 2024-06-15 07:12 | disposition home or self-care (01) ==
LOC: HO.LAB 07:11
PROVIDERS: PCP Internal Medicine; Visit Provider Internal Medicine
DX: Z00.00 Encounter for general adult medical examination without abnormal findings (principal); E11.9 Type 2 diabetes mellitus without complications; E78.5 Hyperlipidemia, unspecified; E55.9 Vitamin D deficiency, unspecified; C92.01 Acute myeloblastic leukemia, in remission; E53.8 Deficiency of other specified B group vitamins
CPT/HCPCS: 36415; 80053; 80061; 82043; 82306; 82570; 82607; 82746; 85025

== ENCOUNTER 2024-06-18 08:38 | Outpatient (AMB) | payer OTHER, SELFPAY ==
--- NOTE | 2024-06-18 08:42 | MHC.OFFVIS ---
Vital Signs 06/18/24 08:48 Height 5 ft 7 in Weight 216 lb 0.848 oz BMI 33.8 BP 92/64 Blood Pressure Location Lt brachial Position Sitting Pulse 88 Intake Visit Reasons: 6 month f.u Intake Note: Orlin presents in the office as a 6 month follow up. CC: She states that she has issues with her constipation - everything seems to be the same. Needs a new Rx on Nexium. 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 phentermine Allergy (Intermediate, Verified 06/18/24 08:48) ANXIETY tramadol Allergy (Intermediate, Verified 06/18/24 08:48) stomach upset adhesive tape [ADHESIVE TAPE] Allergy (Mild, Verified 06/18/24 08:48) RASH oxycodone [OXYCODONE] Adverse Reaction (Intermediate, Verified 06/18/24 08:48) VOMITING acetaminophen [From Percocet] Adverse Reaction (Verified 06/18/24 08:48) Vomiting apremilast [From Otezla] Adverse Reaction (Verified 06/18/24 08:48) diarrhea, nausea HPI HPI 6 month f.u: Details: 59 yr old f here for f/u RECAP:pt of ulices Had GERD, on PPI--was taking prn instead of as scheduled but working for her constipation, on fiber and bisacodyl sx had improved a lot with pantoprzole and fiber diet she saw blood in stool and felt a hemorrhoid, she bought prep H and it helped mother of esophageal ca was a smoker. colonoscopy 2017- patty, flat hyperplastic poylp removed EGD 10/2018--fundic gland polyps, esophagitis--increased IEL duodenum, chronci esophagitis and gastritis celaic panel negative h pylori breath test neg GES 04/2019--normal --colonoscopy --11/2019--polyp removed--mucosal, benign, internal hemorrhoids, rept 3 yr due to fair prep EGD 11/26 done due to dysphagia: inflammation GEJ and dilation to 19 mm UEs and LES Path: moderate inflammation GEJ, active esophagitis, hyperplastic polyps stomach EGD 06/2022 with dilation of esophagus and stomach esophagitis gastritis fundic gland polyps small hiatal hernia schatzki ring Path: A. Stomach, biopsy: Oxyntic mucosa with moderate chronic inactive inflammation; no Helicobacter organisms seen. B. Stomach, polyps: Fundic gland polyps with background mild chronic inactive inflammation; no Helicobacter organisms seen. C. GE junction, biopsy: - Active esophagitis (mostly neutrophils). - No glandular epithelium identified. ALSO checked RAST; high levels for several foods incl peanuts, almonds, sesame, WHEAT colonoscopy 07/28 --clear, no polyps INTERIM: she has issues with constipation still, taking miralax and bisacodyl -would like to try something else denies fever no abdominal pain appetite is good she is on many meds incl for DM EXAM: GENERAL: The patient is well developed and nontoxic. VITAL SIGNS:see workflow HEENT: Nonicteric sclerae, PERRLA, EOMI. Oropharynx clear. Moist mucous membranes. Conjunctivae appear well perfused. No thyroid mass. CHEST: Chest wall is nontender. HEART: Regular rate and rhythm without murmurs. LUNGS: Clear to auscultation bilaterally. ABDOMEN: Soft, positive bowel sounds, non tender, no organomegaly.no flank tenderness SKIN: No rash, no excessive bruising, petechiae, or purpura. NEUROLOGIC: Cranial nerves II-XII intact without motor/sensory deficit. Assessments 1. GERD with esophagitis -on PPI, better since dilation 2/ Food allergies 3/ constipation maybe slow transit or due to DM and medications, PLAN: 1/ advised, will try low dose linaclotide and see how it goes 2/ will go back on Vit D3 supplement PFSH Medical History Hx of acute myeloid leukemia in remission Benign paroxysmal positional vertigo Hospital discharge follow-up Abscess Essential hypertension Diabetes mellitus Migraines Hand numbness Mild persistent asthma Impaired glucose tolerance Mild recurrent major depression Herpes simplex type 2 infection Mixed hyperlipidemia Supraventricular tachycardia Left leg pain GERD (gastroesophageal reflux disease) Insomnia Left knee pain Nausea Depression with anxiety Surgical History History of esophagogastroduodenoscopy (EGD) Hx of colonoscopy History of removal of cyst History of surgery History of total abdominal hysterectomy History of cardiac radiofrequency ablation Family History Father Brain cancer Mother Esophageal cancer Sister Breast cancer Paternal Uncle Diabetes Hypertension Sister Colon cancer, Onset Age: 63 Social History Household Members: Children Housing: House Do you presently have visiting nurse or other home services: Yes Alcohol intake: never Patient Tobacco Use Status: Never used Tobacco e-Cigarette/Vaping Use: Never Used Second Hand Smoke Exposure: No Advance Directives Date on File: 03/11/23 service: No Current occupational status: unemployed Sexual orientation: Straight/Heterosexual Gender identity: Female Cognitive needs: No Hearing needs: No Vision needs: No Female Reproductive History Menstrual Age of Menarche: 13 Physical Exam Vital Signs: Last Vital Signs Pulse 88 06/18/24 08:48 BP 92/64 06/18/24 08:48 BMI result Body Mass Index 33.8 Assessment & Plan Assessment & Plan (1) GERD (gastroesophageal reflux disease): Code(s): K21.9 - Gastro-esophageal reflux disease without esophagitis Category: Medical Plan: as above Medications: New linaclotide 72 mcg PO DAILY 30 caps 3RF esomeprazole magnesium DR 40 mg PO DAILY 30 ea 2RF Discontinued dulaglutide (Trulicity) Discontinued Reason: Doctor's Order 1.5 mg (0.5 mL) subcut TH 2 mL 6RF Coding Level of Care Code Est Pt Level 3 (31916) Diagnoses Gastroesophageal reflux disease, unspecified whether esophagitis present K21.9
[2024-06-18 08:48] VITALS: BP 92/64; PULSE 88; BMI 33.8
--- OUTSIDE RECORDS SUMMARY | 2024-06-18 09:10 | XMS_ITS | Data Portability ---
Author Organization [place] - [facility], Allergy Address [address] [place] [phone] Care Team Providers Care Hand Stamper Name Role Phone FRANK TAMIA MCKEON Referring [...] Organization Details Recorded Time Deviated nasal septum [id number] Active 2016 Deviated nasal septum; Note: Date Diagnosed: 05/06/2016 9:16 AM (J34.2) Not Available [facility] 4 02:50:30 Allergic rhinitis caused by pollen 30559294 Active 2015 Allergic rhinitis due to pollen; Note: Date Diagnosed: 11/18/2015 10:39 AM (J30.1) Not Available [facility] 4 02:50:33 Allergic rhinitis 87633092 Active 2016 Other allergic rhinitis; Note: Date Diagnosed: 05/06/2016 9:16 AM (J30.89) Jennifer l allergic rhinitis; Note: Date Diagnosed: 11/18/2015 10:39 AM (J30.89) ; Start Date : 11/18/2015 Not Available [facility] 4 02:50:28 Asthma 550430031 Active 2016 Other asthma; Note: Date Diagnosed: 05/06/2016 9:16 AM (J45.998) Not Available [facility] 4 02:50:30 Obstructi ve sleep apnea syndrome 43179258 Active 2016 Obstructiv e sleep apnea (adult) (pediatric ); Note: Date Diagnosed: 05/06/2016 9:16 AM (G47.33) Not Available [facility] 4 02:50:31 Chronic rhinitis 88809400 Active 2015 Chronic rhinitis; Note: Date Diagnosed: 10/23/2015 4:13 PM (J31.0) Not Available [facility] 4 02:50:32 Sensorine ural hearing loss of bilateral ears 893878501 Active 2024 AUSTYN WADDELL [address] [place] [address], [phone] , [facility] 5 10:08:59 Problem Notes None recorded. Procedures Surgical History Date Name Laterality Status Provider Name and Address Organization Details Recorded Time 03/28/2024 Comp Audio with Tymps (02670 & 18719) completed AUSTYN WADDELL [address] [place] [address], [phone], [facility] 03/28/2024 10:08:52 Imaging Results Imaging Date Name Status LastModified by Organiz ation Details LastModified Time 03/28/2024 audiogram completed BARCODE Information no t available 03/28/2024 13:53:06 Procedure Notes None recorded. Medical Equipment None Reported. Medications Name Sig Start Date Stop Date Status Note LastModified by Organization Details LastModified Time cyclobenza salo 10 mg tablet 2015 active Medicatio n ID: [id number] Du ration Value: 30 Brand Name: cyclobenz aprine Se nd Method: E-Prescri bed Subs Allowed: subs OK Medica tionGener icName: cyclobenz aprine Not Available Not Available Not Available Qvar 80 mcg/actuat ion Metered Aerosol oral inhaler 2015 active Medicatio n ID: [id number] Du ration Value: 30 Brand Name: Qvar Send Method: E-Prescri bed Subs Allowed: subs OK Specia l Instructi on: TK 1 PUFF PO BID WITH SPACER FOR 30 DAYS Medi cationGen ericName: Qvar Not Available Not Available Not Available gabapentin 600 mg tablet 2015 active Medicatio n ID: [id number] Du ration Value: 30 Brand Name: gabapenti n Send Method: E-Prescri bed Subs Allowed: subs OK Specia l Instructi on: TK 1 T PO TID Medic ationGene ricName: gabapenti n Not Available Not Available Not Available propranolo l 80 mg tablet 2015 active Medicatio n ID: [id number] Br and Name: propranol ol Send Method: [...] nebulizati on 2015 active Medicatio n ID: [id number] Du ration Value: 25 Brand Name: Albuterol [...] mg tablet 2015 active Medicatio n ID: [id number] Du ration Value: 30 Brand Name: butalbita l-acetami nophen-ca ff Send Method: E-Prescri bed Subs Allowed: subs OK Specia l Instructi on: TK 1 T PO QD PRF PAZ Medica tionGener icName: butalbita l-acetami nophen-ca ff Not Available Not Available Not Available Medrol 4 mg tablet 2015 active Medicatio n ID: [id number] Br and Name: Medrol Se nd Method: [...] nasal spray 2015 active Medicatio n ID: [id number] Du ration Value: 30 Brand Name: tomas hampton Send Method: E-Prescri bed Subs Allowed: subs OK Specia l Instructi on: INL ONCE IEN D Medicat ionGeneri cName: tomas de Not Available Not Available Not Available paroxetine 20 mg tablet 2015 active Medicatio n ID: [id number] Du ration Value: 30 Brand Name: paroxetin [...] mg tablet 2015 active Medicatio n ID: [id number] Br and Name: Tylenol-C odeine #3 Send [...] mg tablet 2015 active Medicatio n ID: [id number] Du ration Value: 30 Brand Name: oxybutyni [...] mg capsule 2015 active Medicatio n ID: [id number] Br and Name: phentermi ne Send Method: E-Prescri bed Subs Allowed: subs OK Medica tionGener icName: phentermi ne Not Available Not Available Not Available loratadine 10 mg tablet TAKE 1 TABLET BY MOUTH DAILY active Not Available Not Available No t Available risperidon e 0.5 mg tablet 2015 active Medicatio n ID: [id number] Du ration Value: 30 Brand Name: risperido ne Send Method: E-Prescri bed Subs Allowed: subs OK Specia l Instructi on: TK 1 T PO QHS Medic ationGene ricName: risperido ne Not Available Not Available Not Available oxycodone 5 mg tablet 2015 active Medicatio n ID: [id number] Du ration Value: 3 Brand Name: oxycodone [...] mg tablet 2015 active Medicatio n ID: [id number] Du ration Value: 30 Brand Name: Vesicare Send Method: E-Prescri bed Subs Allowed: subs OK Specia l Instructi on: TK 1 T PO D Medicat ionGeneri cName: Vesicare Not Available Not Available Not Available Colace 2015 active Medicatio n ID: [id number] Br and Name: colace Se nd Method: E-Prescri bed Subs Allowed: subs OK Medica tionGener icName: colace Not Available Not Available Not Available naphazolin e 2015 active Medicatio n ID: [id number] Br and Name: naphazoli ne Send Method: E-Prescri bed Subs Allowed: subs OK Medica tionGener icName: naphazoli ne Not Available Not Available Not Available promethazi ne 2015 active Medicatio n ID: [id number] Br and Name: promethaz ine Send Method: E-Prescri bed Subs Allowed: subs OK Medica tionGener icName: promethaz ine Not Available Not Available Not Available Qvar 2015 active Medicatio n ID: [id number] Br and Name: qvar Send Method: E-Prescri bed Subs Allowed: subs OK Medica tionGener icName: qvar Not Available Not Available Not Available Xopenex HFA 45 mcg/actuat ion aerosol inhaler 2015 active Medicatio n ID: [id number] Du ration Value: 15 Brand Name: Xopenex [...] delayed release 2015 active Medicatio n ID: [id number] Du ration Value: 30 Brand Name: Dexilant Send Method: E-Prescri bed Subs Allowed: subs OK Specia l Instructi on: TK 1 C PO QPM AT SUPPER OR HS Medica tionGener icName: Dexilant Not Available Not Available Not Available lidocaine 5 % topical ointment 2015 active Medicatio n ID: [id number] Du ration Value: 15 Brand Name: lidocaine [...] Address Organization Details Last Updated DateTime 03/28/2024 182132.09 g 39.2 kg/m2 170.18 cm Clarice Roberts MA - [facility] 03/28/2024 10:24:20 Social History None recorded. Functional Status None recorded. Mental Status None recorded. Family History Nothing Reported. Medical History No medical history recorded. Gynecological HistoryNo gynecological history recorded. Obstetrics History GPAL:G 0 P 0 0 0 0 Past Encounters Encounter ID Performer Location Encounter Start Date Encounter Closed Date Diagnosis/Indication Diagnosis SNOMED-CT Code Diagnosis ICD10 Code Diagnosis Note [id number] JANINE HART MD [facility] [address] [phone] 03/28/2024 09:30:25 03/28/2024 10:31:51 Sensorineural hearing loss of bilateral ears [id number] H90.3 Audiologic al evaluation results: Right ear: [...] Policy Number Policy [place] Covered Member ID Soot Member ID Guarantor Name 03/28/2024 1 [facility] - DOS ON OR AFTER 2022 - ONE CARE (MEDICARE REPLACEMENT/ADV ANTAGE - HMO) Simi Garza [id number] Simi Garza Notes Date Note Type Note [...] and no ear surgeries. JANINE HART MD [address] [place] [address], [phone], [facility] - [facility] 03/28/2024 12:42:32 OBGyn Episode No OBEpisode recorded.
== END 2024-06-18 09:16 | disposition home or self-care (01) ==
LOC: HO.HGI 08:38
PROVIDERS: PCP Internal Medicine; Visit Provider Internal Medicine Gastroenterology
DX: K21.9 Gastro-esophageal reflux disease without esophagitis (principal)
CPT/HCPCS: 99213

== ENCOUNTER → 2024-06-18 08:38 | Outpatient (BNVA) | payer OTHER, SELFPAY | PROVIDERS: PCP Internal Medicine; Visit Provider Internal Medicine Gastroenterology | DX: K21.9 Gastro-esophageal reflux disease without esophagitis (principal) | CPT/HCPCS: 99212 ==

== ENCOUNTER 2024-06-26 10:28 | Outpatient (AMB) | payer OTHER, SELFPAY ==
--- NOTE | 2024-06-26 10:32 | A.OFFPC_ITS ---
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 phentermine Allergy (Intermediate, Verified 06/26/24 10:56) ANXIETY tramadol Allergy (Intermediate, Verified 06/26/24 10:56) stomach upset adhesive tape [ADHESIVE TAPE] Allergy (Mild, Verified 06/26/24 10:56) RASH oxycodone [OXYCODONE] Adverse Reaction (Intermediate, Verified 06/26/24 10:56) VOMITING acetaminophen [From Percocet] Adverse Reaction (Verified 06/26/24 10:56) Vomiting apremilast [From Otezla] Adverse Reaction (Verified 06/26/24 10:56) diarrhea, nausea Medication List - Last Reconciled 06/26/24 by Kayy Aburto MD aspirin (Adult Aspirin Regimen) 81 mg PO DAILY 90 days bisacodyl (Laxative (bisacodyl)) 5 mg PO DAILY blood sugar diagnostic ([employer] Ultra Test strips) Use 1 test strip once a day blood-glucose meter ([employer] Ultra2 Meter) As directed empagliflozin (Jardiance) 10 mg PO DAILY [address] 40 mg PO DAILY fenofibrate 54 mg PO DAILY fluticasone propion-salmeterol 115-21 mcg/actuation (Advair HFA) 2 puffs PO BID ipratropium bromide 2 sprays intranasal TID-QID PRN 30 days lancets (Xi3Touch UltraSoft 2 Lancet) Use 1 lancet once a day linaclotide 72 mcg PO DAILY loratadine 10 mg PO DAILY PRN lorazepam 1 mg PO TID PRN meclizine 25 mg PO Q6H PRN metformin 850 mg PO DAILY metoprolol succinate ER 50 mg PO DAILY nebulizers (Aeroneb Go Nebulizer) As directed omalizumab (Xolair) 300 mg subcut Q4W 28 days ondansetron 4 mg PO Q8H PRN paroxetine HCl 20 mg PO DAILY paroxetine HCl 10 mg PO QAM polyethylene glycol 3350 17 grams PO DAILY rosuvastatin 20 mg PO BEDTIME 90 days tirzepatide (Mounjaro) 2.5 mg (0.5 mL) subcut QWEEK 4 weeks tirzepatide 5 mg (0.5 mL) subcut QWEEK 4 weeks triamcinolone acetonide 0.1% topical zolpidem 10 mg PO BEDTIME PRN Tobacco use date assessed: 06/26/24 Dental Screening Dental Screen Date: 06/26/24 Did you have a dental visit in the last 12 months?: No Did you have a dental problem in the last 6 months where you did not have access to dental care?: No Was dental information given to patient?: Patient has dentist HPI HPI Comments History of Present Illness Details The patient is a 59 year old female presenting with a scheduled follow- up regarding her management of chronic conditions, primarily type 2 diabetes mellitus and hyperlipidemia. Recent reports show controlled diabetes with an A1c of 6.8%, while an increase in LDL cholesterol from 67 to 93 is noted, necessitating an adjustment in cholesterol-lowering medications. The patient also reports exacerbated anxiety levels attributed to recent family bereavements, which have influenced her eating habits and led to weight gain. 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 Complaints of recurring severe back pain, impacting her legs, persist and may require adjustments in her pain management strategy. Psoriasis, impacting both her skin and vulva, is planned for management with dermatologic interventions including topical applications and injections. Medication updates involve increasing rosuvastatin dosage and titration of Mounjaro dosing for her diabetes management. The current regimen addresses her asthma, digestive issues, and anxiety. [facility] Medical History Hx of acute myeloid leukemia in remission Benign paroxysmal positional vertigo Hospital discharge follow-up Abscess Essential hypertension Diabetes mellitus Migraines Hand numbness Mild persistent asthma Impaired glucose tolerance Mild recurrent major depression Herpes simplex type 2 infection Mixed hyperlipidemia Supraventricular tachycardia Left leg pain GERD (gastroesophageal reflux disease) Insomnia Left knee pain Nausea Depression with anxiety Surgical History History of esophagogastroduodenoscopy (EGD) Hx of colonoscopy History of removal of cyst History of surgery History of total abdominal hysterectomy History of cardiac radiofrequency ablation Family History Father Brain cancer Mother Esophageal cancer Sister Breast cancer Paternal Uncle Diabetes Hypertension Sister Colon cancer, Onset Age: 63 Social History Household Members: Children Housing: House Do you presently have visiting nurse or other home services: Yes Alcohol intake: never Patient Tobacco Use Status: Never used Tobacco e-Cigarette/Vaping Use: Never Used Second Hand Smoke Exposure: No Advance Directives Date on File: 03/11/23 service: No Current occupational status: unemployed Sexual orientation: Straight/Heterosexual Gender identity: Female Cognitive needs: No Hearing needs: No Vision needs: No Female Reproductive History Menstrual Age of Menarche: 13 Questionnaire PHQ-9 Over the last 2 weeks, how often have you been bothered by any of the following problems? 1. Little interest or pleasure in doing things: not at all 2. Feeling down, depressed, or hopeless: not at all 3. Trouble falling or staying asleep, or sleeping too much: not at all 4. Feeling tired or having little energy: not at all 5. Poor appetite or overeating: several days 6. Feeling bad about yourself - or that you are a failure or have let yourself or your family down: not at all 7. Trouble concentrating on things, such as reading the newspaper or watching television: not at all 8. Moving or speaking so slowly that other people could have noticed. Or the opposite - being so fidgety or restless that you have been moving around a lot more than usual: not at all 9. Thoughts that you would be better off or of hurting yourself in some way: not at all Total score: 1 Depression Screening Interpretation: Negative Depression Screening Done: Yes 66383 - PHQ-9 Billing: Yes Source: Developed by Drs. Tez Bowen, Bree Perez, Cesar Gonzalez and colleagues, with an educational alexia from [employer]. Thrive Questionnaire Date Thrive assessed: 06/26/24 I am a: Patient What is your living situation today?: I have a steady place to live Within the past 12 months, did the food you bought not last and you didn't have the money to get more?: Never true Within the past 12 months, did you worry whether your food would run out before you got money to buy more?: Never true Do you have trouble paying for medicines?: No Do you have trouble getting transportation to medical appointments?: No Do you have trouble paying your heating and electricity bill?: No Do you have trouble taking care of your child, family member or friend?: No Do you have trouble with day-to-day activities such as bathing, preparing meals, shopping, managing finances, etc.?: No Are you currently unemployed and looking for a job?: No Are you interested in more education?: No Please select the resources that you would like help with: None Currently or been in a relationship where the following occur: No concerns reported THRIVE Score: 0 AUDIT C Alcohol Use Questionnaire (AUDIT-C) 1. How often do you have a drink containing alcohol?: Never Total Score: 0 Score Reviewed/Action Taken: No DICKSON-7 AMB Questionnaire DICKSON-7 Date DICKSON - 7 assessed: 06/26/24 Feeling nervous, anxious, or on edge: 2 = More than half the days Not being able to stop or control worryin = Not at all Worrying too much about different things: 0 = Not at all Trouble relaxin = Not at all Being so restless that it is hard to sit still: 0 = Not at all Becoming easily annoyed or irritable: 1 = Several days Feeling afraid as if something awful might happen: 0 = Not at all Total DICKSON-7 score (0-4 normal; 5-9 mild; 10-14 moderate; 15-21 severe): 3 Source: Developed by Drs. Tez Bowen, Bree Perez, Cesar Gonzalez and colleagues, with an educational alexia from [employer]. DICKSON-7 Assessment Billing DICKSON-7 Assessment Tool: DICKSON-7 Assessment 11489 Review of Systems Const All systems reviewed & are unremarkable except as noted in HPI and below Card Denies chest pain at rest, Denies chest pain with activity, Denies edema, Denies irregular heart rhythm, Denies claudication, Denies dyspnea, Denies dyspnea on exertion, Denies orthopnea, Denies paroxysmal nocturnal dyspnea and Denies slow heart rate Resp Denies cough, Denies dyspnea and Denies dyspnea on exertion GI Denies abdominal pain, Denies change in bowel habits, Denies excessive flatus, Denies nausea and Denies vomiting Physical exam (Primary Care) Vital Signs: Last Vital Signs BP 118/82 06/26/24 10:37 BMI result Body Mass Index 34.8 BMI Assessment/Plan discussion: High BMI High, discussed plan: lifestyle, weight reduction, dietary and physical activity Tobacco/Smoking Status: Tobacco use Status Tobacco use date assessed 06/26/24 06/26/24 10:40 Patient Tobacco Use Status Never used Tobacco 06/26/24 10:33 e-Cigarette/Vaping Use Never Used 06/26/24 10:33 PHQ-9: PHQ-9 Score PHQ-9: Total score 1 06/26/24 11:03 Depression Screening Interpretation: Negative Thrive Assessment: Date of Thrive Assessment Date Thrive assessed 06/26/24 06/26/24 10:40 Currently or been in a relationship where the following occur: No concerns reported Resp Effort & Inspection: normal respiratory effort Auscultation: clear to auscultation bilaterally Cardio Jugular venous distension: no JVD Rate: regular rate Rhythm: regular rhythm Heart sounds: S1 normal heart sound present and S2 normal heart sound present Extrem General: Yes full ROM Psych Appearance: grossly normal Results AMB Hemoglobin A1c AMB Hemoglobin A1c 6.8 % Last Edit by REN Schilling on 06/26/24 10:5 7 Results Reviewed Results Reviewed: Laboratory Last Values Hgb A1c (Clinic) 6.8 % (4.0-6.0) H 06/26/24 10:33 Coding Level of Care Code Est Pt Level 4 (54363) Complex EM visit Add On G2211 Diagnoses Type 2 diabetes mellitus without complication, without long-term current use of insulin E11.9 Diabetes mellitus type: type 2 Diabetes mellitus mcc insulin use: without supervisor intermediates use Diabetes mellitus complication status: without complication Mild recurrent major depression F33.0 Essential hypertension I10 Hyperlipidemia LDL goal <70 E78.5 AML (acute myeloid leukemia) in remission C92.01 Additional Codes DICKSON-7 Assessment Billing - DICKSON-7 Assessment Tool: DICKSON-7 Assessment 80177 ([id number]) PHQ-9 - 64248 - PHQ-9 Billing: Yes ([id number]) Time Spent (min) 23 Assessment & Plan Assessment & Plan (1) Diabetes mellitus: Code(s): E11.9 - Type 2 diabetes mellitus without complications Category: Medical Qualifiers: Diabetes mellitus type: type 2 Diabetes mellitus supervisor intermediates insulin use: without supervisor intermediates use Diabetes mellitus complication status: without complication Qualified Code(s): E11.9 - Type 2 diabetes mellitus without complications (2) Mild recurrent major depression: Code(s): F33.0 - Major depressive disorder, recurrent, mild Category: Medical (3) Essential hypertension: Code(s): I10 - Essential (primary) hypertension Category: Medical (4) Hyperlipidemia LDL goal <70: Code(s): E78.5 - Hyperlipidemia, unspecified Category: Medical (5) AML (acute myeloid leukemia) in remission: Code(s): C92.01 - Acute myeloblastic leukemia, in remission Category: Medical Plan In response to increased LDL cholesterol, rosuvastatin dosage is increased from 20 mg to 40 mg. Continuation of psychiatric support for the anxiety disorder is advised, alongside lifestyle support for bereavement stress. Psoriatic involvement, both dermatological and articular, will proceed with topical and potential injection therapies. Pain management review is necessary for her back pain. Monitoring for her myeloma and leukemia remains a priority with scheduled specialist follow-ups.: Patient was informed and verbally consented to the use of an ambient scribe for clinic note documentation during this visit. I discussed with the patient her current management strategies for diabetes and hyperlipidemia, noting satisfactory glycemic control and the need for increased statin therapy. We addressed the impact of her anxiety on her dietary habits and weight management. The psoriatic condition requires dermatological interventions, which we agreed to continue. Acute back pain management needs reassessment, and she is encouraged to contact her pain management provider for further assistance. Discussions included her history of myeloma and leukemia, addressing necessary follow-ups to monitor her remission status. I informed her about the adjustment in med dosages and the plans for improved management of her chronic symptoms. Orders: Orders Vitamin D 25-OH Total 4 Months E55.9 - Vitamin D deficiency, unspecified Complete Blood Count Auto Diff 4 Months D64.9 - Anemia, unspecified AMB Hemoglobin A1c Today E11.9 - Type 2 diabetes mellitus without complications Lipid Panel 4 Months E78.5 - Hyperlipidemia, unspecified Microalbumin, Random (w Creat) 4 Months R80.9 - Proteinuria, unspecified Vitamin B12 and Folate 4 Months E53.8 - Deficiency of other specified B group vitamins IRON PROFILE 4 Months D64.9 - Anemia, unspecified Comprehensive [place]. Panel Fast 4 Months E78.2 - Mixed hyperlipidemia Referrals Pain Management Referral M54.32 - Sciatica, left side Medications: New tirzepatide (Mounjaro) 7.5 mg (0.5 mL) subcut QWEEK 2 mL 0RF 4 weeks E11.9 - Type 2 diabetes mellitus without complications rosuvastatin 40 mg PO DAILY 90 tabs 1RF 90 days diclofenac sodium 1% (Arthritis Pain (diclofenac)) apply to single elbow, wrist or hand; for hand includes palm/fingers/back of hand 2 grams topical QID 100 grams 1RF 30 days Discontinued tirzepatide (Mounjaro) for 4 weeks Discontinued Reason: Patient Completed Course 2.5 mg (0.5 mL) subcut QWEEK 4 weeks 2 mL 0RF E11.9 - Type 2 diabetes mellitus without complications, E78.2 - Mixed hyperlipidemia, I10 - Essential (primary) hypertension rosuvastatin Discontinued Reason: Patient Completed Course 20 mg PO BEDTIME 90 days 90 tabs 1RF E78.5 - Hyperlipidemia, unspecified tirzepatide Discontinued Reason: Patient Completed Course 5 mg (0.5 mL) subcut QWEEK 4 weeks 2 mL 0RF Patient Instructions: - Continue diabetes management regimen and monitor blood sugar regularly. - Adjust rosuvastatin to 40 mg as directed for better cholesterol control. - Follow anxiety management strategies and explore support due to recent family losses. - Use prescribed topical treatments and prepare for upcoming injections for psoriasis. - Attend scheduled follow-ups for monitoring remissions of myeloma and leukemia. - Contact pain management for back pain review. - Keep scheduled appointments with all specialists as recommended.
[2024-06-26 10:37] VITALS: BP 118/82; BMI 34.8
--- OUTSIDE RECORDS SUMMARY | 2024-06-26 12:12 | XMS_ITS | Data Portability ---
Author Organization [place] - [facility], Allergy Address [address] [place] [phone] Care Team Providers Care Java Enterprise Architect Name Role Phone FRANK TAMIA MCKEON Referring [...] Organization Details Recorded Time Deviated nasal septum [id number] Active 2016 Deviated nasal septum; Note: Date Diagnosed: 05/06/2016 9:16 AM (J34.2) Not Available [facility] 4 02:50:30 Allergic rhinitis caused by pollen 97814997 Active 2015 Allergic rhinitis due to pollen; Note: Date Diagnosed: 11/18/2015 10:39 AM (J30.1) Not Available [facility] 4 02:50:33 Allergic rhinitis 36411972 Active 2016 Other allergic rhinitis; Note: Date Diagnosed: 05/06/2016 9:16 AM (J30.89) Jennifer l allergic rhinitis; Note: Date Diagnosed: 11/18/2015 10:39 AM (J30.89) ; Start Date : 11/18/2015 Not Available [facility] 4 02:50:28 Asthma 974867209 Active 2016 Other asthma; Note: Date Diagnosed: 05/06/2016 9:16 AM (J45.998) Not Available [facility] 4 02:50:30 Obstructi ve sleep apnea syndrome 58427926 Active 2016 Obstructiv e sleep apnea (adult) (pediatric ); Note: Date Diagnosed: 05/06/2016 9:16 AM (G47.33) Not Available [facility] 4 02:50:31 Chronic rhinitis 98520186 Active 2015 Chronic rhinitis; Note: Date Diagnosed: 10/23/2015 4:13 PM (J31.0) Not Available [facility] 4 02:50:32 Sensorine ural hearing loss of bilateral ears 383253090 Active 2024 AUSTYN WADDELL [address] [place] [address], [phone] , [facility] 5 10:08:59 Problem Notes None recorded. Procedures Surgical History Date Name Laterality Status Provider Name and Address Organization Details Recorded Time 03/28/2024 Comp Audio with Tymps (70271 & 41905) completed AUSTYN WADDELL [address] [place] [address], [phone], [facility] 03/28/2024 10:08:52 Imaging Results Imaging Date Name Status LastModified by Organiz ation Details LastModified Time 03/28/2024 audiogram completed BAR[facility] Information no t available 03/28/2024 13:53:06 Procedure Notes None recorded. Medical Equipment None Reported. Medications Name Sig Start Date Stop Date Status Note LastModified by Organization Details LastModified Time cyclobenza salo 10 mg tablet 2015 active Medicatio n ID: [id number] Du ration Value: 30 Brand Name: cyclobenz aprine Se nd Method: E-Prescri bed Subs Allowed: subs OK Medica tionGener icName: cyclobenz aprine Not Available Not Available Not Available Qvar 80 mcg/actuat ion Metered Aerosol oral inhaler 2015 active Medicatio n ID: [id number] Du ration Value: 30 Brand Name: Qvar Send Method: E-Prescri bed Subs Allowed: subs OK Specia l Instructi on: TK 1 PUFF PO BID WITH SPACER FOR 30 DAYS Medi cationGen ericName: Qvar Not Available Not Available Not Available gabapentin 600 mg tablet 2015 active Medicatio n ID: [id number] Du ration Value: 30 Brand Name: gabapenti n Send Method: E-Prescri bed Subs Allowed: subs OK Specia l Instructi on: TK 1 T PO TID Medic ationGene ricName: gabapenti n Not Available Not Available Not Available propranolo l 80 mg tablet 2015 active Medicatio n ID: [id number] Br and Name: propranol ol Send Method: [...] nebulizati on 2015 active Medicatio n ID: [id number] Du ration Value: 25 Brand Name: Albuterol [...] mg tablet 2015 active Medicatio n ID: [id number] Du ration Value: 30 Brand Name: butalbita l-acetami nophen-ca ff Send Method: E-Prescri bed Subs Allowed: subs OK Specia l Instructi on: TK 1 T PO QD PRF PAZ Medica tionGener icName: butalbita l-acetami nophen-ca ff Not Available Not Available Not Available Medrol 4 mg tablet 2015 active Medicatio n ID: [id number] Br and Name: Medrol Se nd Method: [...] nasal spray 2015 active Medicatio n ID: [id number] Du ration Value: 30 Brand Name: tomas [place] Send Method: E-Prescri bed Subs Allowed: subs OK Specia l Instructi on: INL ONCE IEN D Medicat ionGeneri cName: tomas de Not Available Not Available Not Available paroxetine 20 mg tablet 2015 active Medicatio n ID: [id number] Du ration Value: 30 Brand Name: paroxetin [...] mg tablet 2015 active Medicatio n ID: [id number] Br and Name: Tylenol-C odeine #3 Send [...] mg tablet 2015 active Medicatio n ID: [id number] Du ration Value: 30 Brand Name: oxybutyni [...] mg capsule 2015 active Medicatio n ID: [id number] Br and Name: phentermi ne Send Method: E-Prescri bed Subs Allowed: subs OK Medica tionGener icName: phentermi ne Not Available Not Available Not Available loratadine 10 mg tablet TAKE 1 TABLET BY MOUTH DAILY active Not Available Not Available No t Available risperidon e 0.5 mg tablet 2015 active Medicatio n ID: [id number] Du ration Value: 30 Brand Name: risperido ne Send Method: E-Prescri bed Subs Allowed: subs OK Specia l Instructi on: TK 1 T PO QHS Medic ationGene ricName: risperido ne Not Available Not Available Not Available oxycodone 5 mg tablet 2015 active Medicatio n ID: [id number] Du ration Value: 3 Brand Name: oxycodone [...] mg tablet 2015 active Medicatio n ID: [id number] Du ration Value: 30 Brand Name: Vesicare Send Method: E-Prescri bed Subs Allowed: subs OK Specia l Instructi on: TK 1 T PO D Medicat ionGeneri cName: Vesicare Not Available Not Available Not Available Colace 2015 active Medicatio n ID: [id number] Br and Name: colace Se nd Method: E-Prescri bed Subs Allowed: subs OK Medica tionGener icName: colace Not Available Not Available Not Available naphazolin e 2015 active Medicatio n ID: [id number] Br and Name: naphazoli ne Send Method: E-Prescri bed Subs Allowed: subs OK Medica tionGener icName: naphazoli ne Not Available Not Available Not Available promethazi ne 2015 active Medicatio n ID: [id number] Br and Name: promethaz ine Send Method: E-Prescri bed Subs Allowed: subs OK Medica tionGener icName: promethaz ine Not Available Not Available Not Available Qvar 2015 active Medicatio n ID: [id number] Br and Name: qvar Send Method: E-Prescri bed Subs Allowed: subs OK Medica tionGener icName: qvar Not Available Not Available Not Available Xopenex HFA 45 mcg/actuat ion aerosol inhaler 2015 active Medicatio n ID: [id number] Du ration Value: 15 Brand Name: Xopenex [...] delayed release 2015 active Medicatio n ID: [id number] Du ration Value: 30 Brand Name: Dexilant Send Method: E-Prescri bed Subs Allowed: subs OK Specia l Instructi on: TK 1 C PO QPM AT SUPPER OR HS Medica tionGener icName: Dexilant Not Available Not Available Not Available lidocaine 5 % topical ointment 2015 active Medicatio n ID: [id number] Du ration Value: 15 Brand Name: lidocaine [...] Address Organization Details Last Updated DateTime 03/28/2024 026297.09 g 39.2 kg/m2 170.18 cm Clarice Roberts [place] - [facility] 03/28/2024 10:24:20 Social History None recorded. Functional Status None recorded. Mental Status None recorded. Family History Nothing Reported. Medical History No medical history recorded. Gynecological HistoryNo gynecological history recorded. Obstetrics History GPAL:G 0 P 0 0 0 0 Past Encounters Encounter ID Performer Location Encounter Start Date Encounter Closed Date Diagnosis/Indication Diagnosis SNOMED-CT Code Diagnosis ICD10 Code Diagnosis Note [id number] JANINE HART MD [facility] [address] [phone] 03/28/2024 09:30:25 03/28/2024 10:31:51 Sensorineural hearing loss of bilateral ears [id number] H90.3 Audiologic al evaluation results: Right ear: [...] Soto Member ID Guarantor Name 03/28/2024 1 [facility] - DOS ON OR AFTER 2022 - ONE CARE (MEDICARE REPLACEMENT/ADV ANTAGE - HMO) Simi Garza [id number] Simi Garza Notes Date Note Type Note [...] and no ear surgeries. JANINE HART MD [address] [place] [address], [phone], [facility] - [facility] 03/28/2024 12:42:32 OBGyn Episode No OBEpisode recorded.
== END 2024-06-26 11:11 | disposition home or self-care (01) ==
LOC: HO.HMCH 10:28
PROVIDERS: PCP Internal Medicine; Visit Provider Internal Medicine
DX: E11.69 Type 2 diabetes mellitus with other specified complication (principal); F33.0 Major depressive disorder, recurrent, mild; C92.01 Acute myeloblastic leukemia, in remission; I10 Essential (primary) hypertension; E78.5 Hyperlipidemia, unspecified

== ENCOUNTER → 2024-06-26 10:28 | Outpatient (BNVA) | payer OTHER, SELFPAY | PROVIDERS: PCP Internal Medicine; Visit Provider Internal Medicine | DX: E11.9 Type 2 diabetes mellitus without complications (principal); E78.5 Hyperlipidemia, unspecified; M54.9 Dorsalgia, unspecified; L40.9 Psoriasis, unspecified; F33.0 Major depressive disorder, recurrent, mild; I10 Essential (primary) hypertension; C92.01 Acute myeloblastic leukemia, in remission | CPT/HCPCS: 83036; 96127; 99212 ==

== ENCOUNTER 2024-07-03 07:39 | Outpatient (AMB) | payer OTHER, SELFPAY ==
--- NOTE | 2024-07-03 07:42 | MHC.OFFVIS ---
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 Currently no sexually active. Attempting to eat a healthy diet with calcium and vitamin D and stays active with exercise. History of hysterectomy due to heavy bleeding. Last mammogram; 2023. Colonoscopy is UTD. Denies any family history of breast and colon cancer, patient was tested BRCA negative in the past. [facility] Medical History (Updated 07/03/24 @ 08:12 by Gloria Gaytan CNM) BRCA negative Hx of acute myeloid leukemia in remission Benign paroxysmal positional vertigo Hospital discharge follow-up Abscess Essential hypertension Diabetes mellitus Migraines Hand numbness Mild persistent asthma Impaired glucose tolerance Mild recurrent major depression Herpes simplex type 2 infection Mixed hyperlipidemia Supraventricular tachycardia Left leg pain GERD (gastroesophageal reflux disease) Insomnia Left knee pain Nausea Depression with anxiety Surgical History History of esophagogastroduodenoscopy (EGD) Hx of colonoscopy History of removal of cyst History of surgery History of total abdominal hysterectomy History of cardiac radiofrequency ablation Family History Father Brain cancer Mother Esophageal cancer Sister Breast cancer Paternal Uncle Diabetes Hypertension Sister Colon cancer, Onset Age: 63 Social History Household Members: Children Housing: House Do you presently have visiting nurse or other home services: Yes Alcohol intake: never Patient Tobacco Use Status: Never used Tobacco e-Cigarette/Vaping Use: Never Used Second Hand Smoke Exposure: No Advance Directives Date on File: 03/11/23 service: No Current occupational status: unemployed Sexual orientation: Straight/Heterosexual Gender identity: Female Cognitive needs: No Hearing needs: No Vision needs: No Female Reproductive History Menstrual Age of Menarche: 13 Menopause type: surgical Total pregnancies: 3 Full term: 3 Number of Living Children: 3 Date of last pap smear: 09/21/10 (neg) Date of Mammogram: 11/24/23 (Birad 1) Date of last Bone Density Screenin11/18/22 Review of Systems Const All systems reviewed & are unremarkable except as noted in HPI and below Reports as per HPI Eyes Reports no additional complaints ENT Reports no additional complaints Card Reports no additional complaints Resp Reports no additional complaints GI Reports as per HPI and Reports no additional complaints Reports as per HPI Musc Reports no additional complaints Skin/Breast Reports as per HPI Neuro Reports no additional complaints Psych Reports no additional complaints Endo Reports no additional complaints Zak/Lymph Reports no additional complaints Aller/Immun Reports no additional complaints Physical Exam Vital Signs: Last Vital Signs BP 110/78 07/03/24 07:43 BMI result Body Mass Index 34.8 Const General: cooperative, healthy appearing, no acute distress, well developed and alert Orientation/consciousness: patient oriented x3 HEENT Head: Yes normal to inspection Eyes General: appearance normal, both eyes and all related structures Neck Neck: Yes normal visual inspection Thyroid: Thyroid normal Chest Chest palpation & inspection: normal inspection of the chest and other (no puckering, dimpling, peau de orange, retraction, discharge, masses) Breast/axilla inspection: normal inspection of the breasts Breast/axilla palpation: normal palpation of the breasts Resp Effort & Inspection: normal respiratory effort GI Inspection: Yes normal to inspection and Yes scar Palpation (GI): Soft to palpation Rectal Exam - Female: deferred Other: External: Vulvar psoriasis General: Yes bladder normal to palpation External Female Exam: normal external appearance and normal appearance of the urethra Speculum Exam - Vagina: normal appearance of the vagina, normal palpation and normal vaginal discharge Speculum Exam - Cervix: Cervix absent (Vaginal cuff, no lesions or nodules) Bimanual exam- vagina & uterus: normal bimanual exam, normal palpation, bladder normal to palpation and uterus absent Bimanual Exam- Adnexa, other: no masses Skin General skin exam: no rashes or lesions noted Rashes: no rashes Neuro General: patient oriented x3 Cognition (Neuro): normal cognition Extrem General: Yes normal to inspection Psych Attitude: cooperative Thought process: Normal thought process present Assessment & Plan Assessment & Plan (1) Encounter for annual routine gynecological examination: Code(s): Z01.419 - Encounter for gynecological examination (general) (routine) without abnormal findings Category: Medical Plan Discussed: Current recommendations for pap smears per ASCCP guidelines. Breast awareness, periodic self breast exams and yearly mammogram. Maintain a healthy lifestyle, well balanced diet including Calcium 1,200 mg and Vitamin D 600 IU daily, and routine exercise. Follow up for vulvar psoriasis with Dr. Orr. She was given opportunity to ask questions and all questions were answered to the best of my ability. 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 This note is constructed using voice recognition software. 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 Coding Level of Care Code Est Pt Prev Care 40-64y(40048) Diagnoses Encounter for annual routine gynecological examination Z01.419
--- OUTSIDE RECORDS SUMMARY | 2024-07-03 07:42 | XMS_ITS | Data Portability ---
Author Organization [place] - [facility], Allergy Address [address] [place] [phone] Care Team Providers Care Internal Review And Audit Compliance Name Role Phone FRANK TAMIA MCKEON Referring [...] Organization Details Recorded Time Deviated nasal septum 830718776 Active 2016 Deviated nasal septum; Note: Date Diagnosed: 05/06/2016 9:16 AM (J34.2) Not Available [facility] 4 02:50:30 Allergic rhinitis caused by pollen 39150061 Active 2015 Allergic rhinitis due to pollen; Note: Date Diagnosed: 11/18/2015 10:39 AM (J30.1) Not Available [facility] 4 02:50:33 Allergic rhinitis 76788000 Active 2016 Other allergic rhinitis; Note: Date Diagnosed: 05/06/2016 9:16 AM (J30.89) Jennifer l allergic rhinitis; Note: Date Diagnosed: 11/18/2015 10:39 AM (J30.89) ; Start Date : 11/18/2015 Not Available [facility] 4 02:50:28 Asthma 937132322 Active 2016 Other asthma; Note: Date Diagnosed: 05/06/2016 9:16 AM (J45.998) Not Available [facility] 4 02:50:30 Obstructi ve sleep apnea syndrome 05422837 Active 2016 Obstructiv e sleep apnea (adult) (pediatric ); Note: Date Diagnosed: 05/06/2016 9:16 AM (G47.33) Not Available [facility] 4 02:50:31 Chronic rhinitis 25583936 Active 2015 Chronic rhinitis; Note: Date Diagnosed: 10/23/2015 4:13 PM (J31.0) Not Available [facility] 4 02:50:32 Sensorine ural hearing loss of bilateral ears 063188783 Active 2024 AUSTYN WADDELL [address] [place] [address], [phone] , [facility] 5 10:08:59 Problem Notes None recorded. Procedures Surgical History Date Name Laterality Status Provider Name and Address Organization Details Recorded Time 03/28/2024 Comp Audio with Tymps (24457 & 62093) completed AUSTYN WADDELL [address] [place] [address], [phone], [facility] 03/28/2024 10:08:52 Imaging Results Imaging Date Name Status LastModified by Organiz ation Details LastModified Time 03/28/2024 audiogram completed [facility] Information no t available 03/28/2024 13:53:06 Procedure Notes None recorded. Medical Equipment None Reported. Medications Name Sig Start Date Stop Date Status Note LastModified by Organization Details LastModified Time cyclobenza salo 10 mg tablet 2015 active Medicatio n ID: [id number] Du ration Value: 30 Brand Name: cyclobenz aprine Se nd Method: E-Prescri bed Subs Allowed: subs OK Medica tionGener icName: cyclobenz aprine Not Available Not Available Not Available Qvar 80 mcg/actuat ion Metered Aerosol oral inhaler 2015 active Medicatio n ID: [id number] Du ration Value: 30 Brand Name: Qvar Send Method: E-Prescri bed Subs Allowed: subs OK Specia l Instructi on: TK 1 PUFF PO BID WITH SPACER FOR 30 DAYS Medi cationGen ericName: Qvar Not Available Not Available Not Available gabapentin 600 mg tablet 2015 active Medicatio n ID: [id number] Du ration Value: 30 Brand Name: gabapenti n Send Method: E-Prescri bed Subs Allowed: subs OK Specia l Instructi on: TK 1 T PO TID Medic ationGene ricName: gabapenti n Not Available Not Available Not Available propranolo l 80 mg tablet 2015 active Medicatio n ID: [id number] Br and Name: propranol ol Send Method: [...] nebulizati on 2015 active Medicatio n ID: [id number] Du ration Value: 25 Brand Name: Albuterol [...] mg tablet 2015 active Medicatio n ID: [id number] Du ration Value: 30 Brand Name: butalbita l-acetami nophen-ca ff Send Method: E-Prescri bed Subs Allowed: subs OK Specia l Instructi on: TK 1 T PO QD PRF PAZ Medica tionGener icName: butalbita l-acetami nophen-ca ff Not Available Not Available Not Available Medrol 4 mg tablet 2015 active Medicatio n ID: [id number] Br and Name: Medrol Se nd Method: [...] nasal spray 2015 active Medicatio n ID: [id number] Du ration Value: 30 Brand Name: tomas [place] Send Method: E-Prescri bed Subs Allowed: subs OK Specia l Instructi on: INL ONCE IEN D Medicat ionGeneri cName: tomas de Not Available Not Available Not Available paroxetine 20 mg tablet 2015 active Medicatio n ID: [id number] Du ration Value: 30 Brand Name: paroxetin [...] mg tablet 2015 active Medicatio n ID: [id number] Br and Name: Tylenol-C odeine #3 Send [...] mg tablet 2015 active Medicatio n ID: [id number] Du ration Value: 30 Brand Name: oxybutyni [...] mg capsule 2015 active Medicatio n ID: [id number] Br and Name: phentermi ne Send Method: E-Prescri bed Subs Allowed: subs OK Medica tionGener icName: phentermi ne Not Available Not Available Not Available loratadine 10 mg tablet TAKE 1 TABLET BY MOUTH DAILY active Not Available Not Available No t Available risperidon e 0.5 mg tablet 2015 active Medicatio n ID: [id number] Du ration Value: 30 Brand Name: risperido ne Send Method: E-Prescri bed Subs Allowed: subs OK Specia l Instructi on: TK 1 T PO QHS Medic ationGene ricName: risperido ne Not Available Not Available Not Available oxycodone 5 mg tablet 2015 active Medicatio n ID: [id number] Du ration Value: 3 Brand Name: oxycodone [...] mg tablet 2015 active Medicatio n ID: [id number] Du ration Value: 30 Brand Name: Vesicare Send Method: E-Prescri bed Subs Allowed: subs OK Specia l Instructi on: TK 1 T PO D Medicat ionGeneri cName: Vesicare Not Available Not Available Not Available Colace 2015 active Medicatio n ID: [id number] Br and Name: colace Se nd Method: E-Prescri bed Subs Allowed: subs OK Medica tionGener icName: colace Not Available Not Available Not Available naphazolin e 2015 active Medicatio n ID: [id number] Br and Name: naphazoli ne Send Method: E-Prescri bed Subs Allowed: subs OK Medica tionGener icName: naphazoli ne Not Available Not Available Not Available promethazi ne 2015 active Medicatio n ID: [id number] Br and Name: promethaz ine Send Method: E-Prescri bed Subs Allowed: subs OK Medica tionGener icName: promethaz ine Not Available Not Available Not Available Qvar 2015 active Medicatio n ID: [id number] Br and Name: qvar Send Method: E-Prescri bed Subs Allowed: subs OK Medica tionGener icName: qvar Not Available Not Available Not Available Xopenex HFA 45 mcg/actuat ion aerosol inhaler 2015 active Medicatio n ID: [id number] Du ration Value: 15 Brand Name: Xopenex [...] delayed release 2015 active Medicatio n ID: [id number] Du ration Value: 30 Brand Name: Dexilant Send Method: E-Prescri bed Subs Allowed: subs OK Specia l Instructi on: TK 1 C PO QPM AT SUPPER OR HS Medica tionGener icName: Dexilant Not Available Not Available Not Available lidocaine 5 % topical ointment 2015 active Medicatio n ID: [id number] Du ration Value: 15 Brand Name: lidocaine [...] Address Organization Details Last Updated DateTime 03/28/2024 614589.09 g 39.2 kg/m2 170.18 cm Clarice Roberts MA - [facility] 03/28/2024 10:24:20 Social History None recorded. Functional Status None recorded. Mental Status None recorded. Family History Nothing Reported. Medical History No medical history recorded. Gynecological HistoryNo gynecological history recorded. Obstetrics History GPAL:G 0 P 0 0 0 0 Past Encounters Encounter ID Performer Location Encounter Start Date Encounter Closed Date Diagnosis/Indication Diagnosis SNOMED-CT Code Diagnosis ICD10 Code Diagnosis Note [id number] JANINE HART MD [facility] [address] [phone] 03/28/2024 09:30:25 03/28/2024 10:31:51 Sensorineural hearing loss of bilateral ears [id number] H90.3 Audiologic al evaluation results: Right ear: [...] Soto Member ID Guarantor Name 03/28/2024 1 [facility] [place] - DOS ON OR AFTER 2022 - ONE CARE (MEDICARE REPLACEMENT/ADV ANTAGE - HMO) Simi Garza [id number] Simi Garza Notes Date Note Type Note [...] and no ear surgeries. JANINE HART MD [address] [place] [address], [phone], [facility] - [facility] 03/28/2024 12:42:32 OBGyn Episode No OBEpisode recorded.
[2024-07-03 07:43] VITALS: BP 110/78; BMI 34.8
== END 2024-07-03 08:13 | disposition home or self-care (01) ==
LOC: HO.HWS 07:39
PROVIDERS: PCP Internal Medicine; Visit Provider Advanced Practice Midwife
DX: Z01.419 Encounter for gynecological examination (general) (routine) without abnormal findings (principal)
CPT/HCPCS: 99396; 99459

== ENCOUNTER → 2024-07-03 07:39 | Outpatient (BNVA) | payer OTHER, SELFPAY | PROVIDERS: PCP Internal Medicine; Visit Provider Advanced Practice Midwife | DX: Z01.419 Encounter for gynecological examination (general) (routine) without abnormal findings (principal) | CPT/HCPCS: 99396; 99459 ==

== ENCOUNTER 2024-07-07 14:55 | Emergency (ER) | payer OTHER, SELFPAY ==
--- NOTE | ~2024-07-07 | XR_ITS ---
CLINICAL HISTORY: CP 2 view chest x-ray Comparison: CR/LA/SR - XR CHEST 2V - 06/27/23 18:34 EDT Findings: No consolidation or effusion. Normal size heart. No acute fracture. IMPRESSION: 1. No acute findings. This document has been electronically signed by: Julieth Irizarry MD on 07/07/2024 18:34:47
[2024-07-07 15:06] VITALS: BP 153/96; PULSE 92; RESP 18; TEMP 36.4; O2SAT 98; BMI 34.0
[2024-07-07 16:54] VITALS: BP 150/89; PULSE 86; RESP 18; TEMP 36.7; O2SAT 98
--- NOTE | 2024-07-07 16:58 | ED_ITS ---
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 Patient states that since yesterday she has been monitor her blood pressure with a wrist blood pressure cuff and has noticed that she has had varying blood pressures, highest being 140 systolically. Patient reports that this afternoon she had felt chills, and had tiredness while walking around with associated chest pain and palpitations and took her blood pressure noticed her blood pressure was elevated in the 140 systolic daily. She states that she was instructed by her implement mechanic to take an additional dose of her high blood pressure medication if this happens. She states that she is on lisinopril and metoprolol, states that she took an extra dose of the metoprolol. She states that she is feeling much better, it is asymptomatic. No current chest pain or shortness for breath. She denies any recent illness. No fevers, chills, headache, blurred vision, chest pain, shortness of breath, abdominal pain, nausea, vomiting or diarrhea. She has been compliant with her medications at home. No other complaints or concerns at this time. MD complaint: Elevated blood pressure Onset (ago): day(s) Relieving factors: none Exacerbating factors: none Associated symptoms: chest pain Treatments prior to arrival: none Related Data Home Medications ?Medication ?Instructions ?Recorded ?Confirmed lorazepam 1 mg tablet 1 mg PO TID PRN Anxiety 02/13/20 06/26/24 zolpidem 10 mg tablet 10 mg PO BEDTIME PRN Insomnia 02/13/20 06/26/24 fluticasone propionate 115 2 puff PO BID 05/06/21 06/26/24 mcg-salmeterol 21 mcg/actuation HFA inhaler (Advair HFA) loratadine 10 mg tablet 10 mg PO DAILY PRN Allergy Symptoms 08/09/22 06/26/24 paroxetine HCl 10 mg tablet 10 mg PO QAM 08/09/22 06/26/24 triamcinolone acetonide 0.1 % topical 06/20/23 06/26/24 topical ointment paroxetine HCl 40 mg tablet 20 mg PO DAILY 06/30/23 06/26/24 clobetasol 0.05 % topical ointment 1 appl topical BID 07/03/24 ixekizumab 80 mg/mL subcutaneous mg subcut 07/03/24 auto-injector (VirtualQubetz Autoinjector (3 Pack)) Previous Rx's ?Medication ?Instructions ?Recorded nebulizers (Aeroneb Go Nebulizer) #1 ea 02/05/21 meclizine 25 mg tablet 25 mg PO Q6H PRN Vertigo #30 tabs 05/16/22 ipratropium bromide 42 mcg (0.06 2 spray intranasal TID-QID PRN 07/09/22 %) nasal spray allergy symptoms 30 days #15 mL blood sugar diagnostic (OneTouch #100 ea 12/23/22 Ultra Test strips) blood-glucose meter (OneTouch #1 ea 12/23/22 Ultra2 Meter) lancets 30 gauge (OneTouch #100 ea 12/23/22 UltraSoft 2 Lancet) omalizumab 150 mg subcutaneous 300 mg subcut Q4W 28 days #1 ea 06/16/23 solution (Xolair) metformin 850 mg tablet 850 mg PO DAILY #180 tabs 07/01/23 metoprolol succinate 50 mg 50 mg PO DAILY #90 tabs 11/18/23 tablet,extended release 24 hr bisacodyl 5 mg tablet (Laxative 5 mg PO DAILY #30 tabs 03/19/24 (bisacodyl)) aspirin 81 mg tablet,delayed 81 mg PO DAILY 90 days #90 tabs 05/18/24 release (Adult Aspirin Regimen) empagliflozin 10 mg tablet 10 mg PO DAILY 90 days #90 tabs 05/29/24 (Jardiance) fenofibrate 54 mg tablet 54 mg PO DAILY #90 tabs 06/13/24 esomeprazole magnesium 40 mg 40 mg PO DAILY #30 ea 06/18/24 granules delayed release for susp linaclotide 72 mcg capsule 72 mcg PO DAILY #30 caps 06/18/24 polyethylene glycol 3350 17 17 g PO DAILY #510 grams 06/18/24 gram/dose oral powder ondansetron 4 mg disintegrating 4 mg PO Q8H PRN for 06/20/24 tablet nausea/vomiting #10 tabs diclofenac sodium 1 % topical gel 2 g topical QID 30 days #100 grams 06/26/24 (Arthritis Pain (diclofenac)) rosuvastatin 40 mg tablet 40 mg PO DAILY 90 days #90 tabs 06/26/24 tirzepatide 7.5 mg/0.5 mL 7.5 mg (0.5 mL) subcut QWEEK 4 07/03/24 subcutaneous pen injector weeks #2 mL (Mounjaro) Allergies Allergy/AdvReac Type Severity Reaction Status Date / Time bee pollen [BEE STINGS] Allergy Intermediate RASH Verified 07/07/24 15:06 SWELLING PAIN FULL. phentermine Allergy Intermediate ANXIETY Verified 07/07/24 15:06 tramadol Allergy Intermediate stomach Verified 07/07/24 15:06 upset adhesive tape [ADHESIVE TAPE] Allergy Mild RASH Verified 07/07/24 15:06 oxycodone [OXYCODONE] AdvReac Intermediate VOMITING Verified 07/07/24 15:06 acetaminophen [From Percocet] AdvReac Vomiting Verified 07/07/24 15:06 apremilast [From Otezla] AdvReac diarrhea, Verified 07/07/24 15:06 nausea Review of Systems 2 Review of Systems: Constitutional: No Weight loss, No Fever, No Chills, No Night Sweats, No Fatigue, No Malaise ENT/Mouth: No Hearing loss, No Ear Pain, No Nasal Congestion, No Sinus Pain, No Hoarseness, No sore throat, No Rhinorrhea, No Swallowing Difficulty Eyes: No Eye Pain, No Swelling, No Redness, No Foreign Body, No Discharge, No Vision Changes Cardiovascular: +Chest Pain,+SOB, No Dyspnea on Exertion, No Orthopnea, No Edema, + Palpitations Respiratory: No Cough, No Sputum, No Wheezing, No Smoke Exposure, No Dyspnea Gastrointestinal: No Nausea, No Vomiting, No Diarrhea, No Constipation, No Abdominal pain, No Hematochezia, No Melena Genitourinary: No irregular bleeding, No Dysuria, No Urinary Frequency, No Hematuria, No Urinary Incontinence/retention, No Urgency, No Flank Pain, No Urinary Flow Changes, No Hesitancy Musculoskeletal: No joint pain, No Myalgias, No Joint Swelling Skin: No Skin Lesions, No rash Neuro: No Weakness, No Numbness, No Paresthesias, No Loss of Consciousness, No Dizziness, No Headache Psych: No Anxiety/Panic, No Depression, No SI/HI/AH/VH, No Social Issues, Heme/Lymph: No Bruising, No Bleeding,No Lymphadenopathy Endocrine: No Polyuria, No Polydipsia, No Temperature Intolerance Yes all other systems are reviewed and are negative Constitutional: Constitutional: Reports as per [facility] Past Medical History Medical History (Updated 07/07/24 @ 19:43 by MARLENY Suarez) BRCA negative Hx of acute myeloid leukemia in remission Benign paroxysmal positional vertigo Hospital discharge follow-up Abscess Essential hypertension Diabetes mellitus Migraines Hand numbness Mild persistent asthma Impaired glucose tolerance Mild recurrent major depression Herpes simplex type 2 infection Mixed hyperlipidemia Supraventricular tachycardia Left leg pain GERD (gastroesophageal reflux disease) Insomnia Left knee pain Nausea Depression with anxiety Surgical History History of esophagogastroduodenoscopy (EGD) Hx of colonoscopy History of removal of cyst History of surgery History of total abdominal hysterectomy History of cardiac radiofrequency ablation Family History Family History Father Brain cancer Mother Esophageal cancer Sister Breast cancer Paternal Uncle Diabetes Hypertension Sister Colon cancer, Onset Age: 63 Social History Social History Household Members: Children Housing: House Do you presently have visiting nurse or other home services: Yes Alcohol intake: never Patient Tobacco Use Status: Never used Tobacco Smoked in Last 30 Days: No e-Cigarette/Vaping Use: Never Used Second Hand Smoke Exposure: No Use of substances other than those prescribed or required for medical reasons: No Advance Directives: Yes Advance Directives on File: Yes Advance Directives Date on File: 03/11/23 Patient : No service: No Current occupational status: unemployed Sexual orientation: Straight/Heterosexual Gender identity: Female Cognitive needs: No Hearing needs: No Vision needs: No Physical Exam ED Vital Signs: Vital Signs - 24 hr 07/07/24 15:06 07/07/24 16:54 Temperature 97.5 F 98.0 F Pulse Rate 92 86 Respiratory Rate 18 18 Blood Pressure 153/96 H 150/89 H Pulse Oximetry 98 98 Oxygen Delivery Method Room Air Room Air BMI result Body Mass Index 34.0 Const General: cooperative, comfortable and no acute distress Orientation/consciousness: patient oriented x3 Limitations: no limitations HENMT Head: Yes normal to inspection, Yes normocephalic and Yes atraumatic Ears: hearing grossly normal bilaterally General nose exam: Normal external nose present Face and sinus: Yes normal facial exam Mouth: Normal oral and palatal mucosa present, oropharynx normal and moist mucous membranes Throat: Yes posterior oropharynx normal Eyes General: appearance normal, both eyes and all related structures Eyelids: Yes eyelids normal Conjunctivae: conjunctivae normal Sclerae: sclerae normal Pupils: Equal, round and reactive pupils present EOM: EOMs intact bilaterally Neck Neck: Yes normal visual inspection, Yes full ROM and Yes no lymphadenopathy Lymphatic: no lymphadenopathy noted Chest Chest palpation & inspection: normal inspection of the chest Resp Effort & Inspection: normal respiratory effort and able to speak in complete sentences Auscultation: clear to auscultation bilaterally, no crackles, no rales, no rhonchi and no wheezes Cardio Rate: regular rate Rhythm: regular rhythm Heart sounds: S1 normal heart sound present and S2 normal heart sound present GI Inspection: Yes normal to inspection Skin General skin exam: no rashes or lesions noted Trauma: no lacerations or abrasions Wounds: no wounds Neuro General: patient oriented x3 and moves all extremities Cranial nerves: Yes Equal, round and reactive pupils present Extrem General: Yes normal to inspection Right upper extremity: normal to inspection Left upper extremity: normal to inspection Right lower extremity: normal to inspection Left lower extremity: normal to inspection Medical Decision Making Medical Decision Making [facility] Narrative: This is a 59-year-old female, with a past medical history of hypertension, diabetes, asthma, chest pressure, hyperlipidemia, psoriatic arthritis, who presents emergency department with concerns for elevated blood pressure since today. On arrival, blood pressure 153/96, repeat during my assessment 150/89. Patient is speaking in full sentences under no acute distress. No neurologic deficits on examination. She did report that she had an episode of chest pressure and tiredness this afternoon, which she states is typical when she has elevated blood pressure. She states that her blood pressures systolically was in the 140s. She took an extra dose of her metoprolol this afternoon as this was instructed by her implement mechanic. Patient has no chest pain or shortness for breath, however she states that she did have a episode this afternoon of this. Will obtain EKG, chest x-ray, labs to rule out any arrhythmia or ACS presentation although this is unlikely. Differential diagnoses include hypertensive urgency, hypertension, ACS, arrhythmia, electrolyte derangement. Patient is well-appearing, speaking in full sentences and appears to be under no acute distress. Will continue to monitor pending overall workup today. Course: Overall workup today was reassuring. EKG within normal limits, normal labs. Patient has no chest pain, she is feeling well, no current complaints. Blood pressure 136/84. Discussed overall workup today. Given strict return precautions. She understands and agrees with plan. Patient stable for discharge. Differential Diagnosis Differential Diagnoses: The differential diagnosis associated with the presentation includes See above Lab Data MDM Lab Attestation statement: I reviewed the patient's lab results. Patient with no leukocytosis, stable H&H, chemistry with no significant electrolyte derangement, negative troponin. TSH within normal limits. 07/07/24 18:35 07/07/24 18:35 Labs: Lab Results 07/07/24 07/07/24 Range/Units 16:35 18:35 WBC 10.2 (4.8-10.8) X10*3/uL RBC 4.97 (4.20-5.50) X10*6/uL Hgb 14.6 (12.0-16.0) g/dl Hct 43.6 (37.0-47.0) % MCV 87.7 (80.0-98.0) fL MCH 29.4 (27.0-33.0) pg MCHC 33.5 (31.0-35.0) g/dl RDW 13.8 (11.0-16.0) % Plt Count 236 (160-400) X10*3/uL MPV 9.1 L (9.4-12.3) fL Immature Gran % (Auto) 0.4 (0.0-0.4) % Neut % (Auto) 64.7 (45-73) % Lymph % (Auto) 26.7 (20-40) % [place] % (Auto) 6.7 (2-11) % Eos % (Auto) 1.2 (0-4) % Baso % (Auto) 0.3 (0-2) % Lymph # (Auto) 2.7 (1.2-4.9) X10*3/uL [place] # (Auto) 0.7 (0.1-1.2) X10*3/uL Eos # (Auto) 0.1 (0.0-0.4) X10*3/uL Baso # (Auto) 0.0 (0.0-0.2) X10*3/uL Abs Immat Gran (auto) 0.04 H (0.00-0.03) X10*3/uL Absolute Neuts (auto) 6.6 (2.0-8.3) x10*3/uL Absolute Nucleated RBC 0.000 (0.0-0.012) X10*3/uL Nucleated RBC % (auto) 0.0 (0.0-0.2) /100WBC Sodium 145 (135-145) mmol/L Potassium 3.7 (3.3-5.1) mmol/L Chloride 109 H (96-108) mmol/L Carbon Dioxide 25 (22-29) mmol/L Anion Gap 15 (12-20) BUN 13 (9-16) mg/dL Creatinine 0.76 (0.5-1.4) mg/dL Estim Creat Clear Calc 97.2 Estimated GFR > 60 Random Glucose 124 H (60-115) mg/dL Calcium 10.1 (8.4-10.2) mg/dL Magnesium 1.7 (1.6-2.6) mg/dL Total Bilirubin 0.6 (0.0-1.0) mg/dL Direct Bilirubin 0.2 (0.0-0.5) mg/dL AST 22 (5-31) U/L ALT 34 H (0-31) U/L Alkaline Phosphatase 93 (39-117) U/L Troponin I High Sens < 2.7 (<3.5-17.0) ng/L Total Protein 6.9 (6.5-8.0) g/dL Albumin 4.3 (3.5-5.0) g/dL TSH 0.79 (0.32-4.0) uIU/mL Influenza Type A (PCR) NEGATIVE (Negative) Influenza Type B (PCR) NEGATIVE (Negative) RSV RNA Qual (PCR) NEGATIVE (Negative) SARS-CoV-2 RNA (RT-PCR) NEGATIVE (Negative) Independent Interpretation I performed an independent interpretation of an: EKG Interpretation: EKG normal sinus rhythm at a ventricular rate of 77 beats per minute, MN interval 170, QT QTC 398/450, no STEMI. Vent. Rate : 77 BPM Atrial Rate : 77 BPM P-R Int : 170 ms QRS Dur : 94 ms QT Int : 398 ms P-R-T Axes : 53 0 17 degrees QTcB Int : 450 ms Normal sinus rhythm Normal ECG When compared with ECG of 27-Jun-2023 18:15, No significant change was found Radiology Impression Discussion of test interpretation with radiology: I have reviewed the radiologist's reading. Radiologist Impression: Findings: No consolidation or effusion. Normal size heart. No acute fracture. IMPRESSION: 1. No acute findings. This document has been electronically signed by: Julieth Irizarry MD on 07/07/2024 18:34:47 Discharge Plan Discharge Clinical Impression: Hypertension Patient Disposition: Home, Self-Care Instructions: Hypertension (ED) Additional Instructions: You were seen in the emergency department due to concerns of your elevated blood pressure. Please continue all at-home medications as prescribed. Your blood work was reassuring. Your EKG was normal, your chest x-ray was normal. You tested negative for COVID, flu, RSV. Take your blood pressure twice a day at the same time, and record the blood pressure reading. Follow-up with your primary care physician regarding these findings. If any new or worsening symptoms occur including but not limited to severe chest pain, shortness of breath, please seek emergent care. Prescriptions: No Action (DME) Aeroneb Go Nebulizer [facility] See Rx Instructions .Route Qty: 1 0RF Rx Instructions: As directed (DME) blood-glucose meter [OneTouch Ultra2 Meter] [facility] See Rx Instructions .Route Qty: 1 0RF Rx Instructions: As directed (DME) OneTouch Ultra Test Strip See Rx Instructions .Route Qty: 100 3RF Rx Instructions: Use 1 test strip once a day (DME) lancets [OneTouch UltraSoft 2 Lancet] 30 gauge [facility] See Rx Instructions .Route Qty: 100 3RF Rx Instructions: Use 1 lancet once a day Xolair 150 mg recon soln 300 mg subcut Q4W 28 Days Qty: 1 12RF Rx Instructions: requires multiple injection sites; do not exceed 150 mg per injection site metformin 850 mg tablet 850 mg PO DAILY Qty: 180 0RF Laxative (bisacodyl) 5 mg tablet 5 mg PO DAILY Qty: 30 0RF aspirin [Adult Aspirin Regimen] 81 mg tablet,delayed release (DR/EC) 81 mg PO DAILY 90 Days Qty: 90 0RF Jardiance 10 mg tablet 10 mg PO DAILY 90 Days Qty: 90 0RF fenofibrate 54 mg tablet 54 mg PO DAILY Qty: 90 0RF polyethylene glycol 3350 17 gram/dose powder 17 g PO DAILY Qty: 510 0RF ondansetron 4 mg tablet,disintegrating 4 mg PO Q8H PRN (Reason: for nausea/vomiting) Qty: 10 0RF Mounjaro 7.5 mg/0.5 mL pen injector 7.5 mg subcut QWEEK 28 Days Qty: 2 0RF meclizine 25 mg Tablet 25 mg PO Q6H PRN (Reason: Vertigo) Qty: 30 0RF paroxetine HCl 40 mg tablet 20 mg PO DAILY lorazepam 1 mg tablet 1 mg PO TID PRN (Reason: Anxiety) zolpidem 10 mg tablet 10 mg PO BEDTIME PRN (Reason: Insomnia) Advair HFA 115-21 mcg/actuation HFA aerosol inhaler 2 puff PO BID triamcinolone acetonide 0.1 % ointment topical paroxetine HCl 10 mg tablet 10 mg PO QAM loratadine 10 mg tablet 10 mg PO DAILY PRN (Reason: Allergy Symptoms) ipratropium bromide 42 mcg (0.06 %) spray,non-aerosol 2 spray intranasal TID-QID PRN (Reason: allergy symptoms) 30 Days Qty: 15 6RF Rx Instructions: administer into each nostril metoprolol succinate 50 mg tablet extended release 24 hr 50 mg PO DAILY Qty: 90 3RF Rx Instructions: dose increased linaclotide 72 mcg capsule 72 mcg PO DAILY Qty: 30 3RF esomeprazole magnesium [address] for susp in packet 40 mg PO DAILY Qty: 30 2RF rosuvastatin 40 mg tablet 40 mg PO DAILY 90 Days Qty: 90 1RF diclofenac sodium [Arthritis Pain (diclofenac)] 1 % gel 2 g topical QID 30 Days Qty: 100 1RF Rx Instructions: apply to single elbow, wrist or hand; for hand includes palm/fingers/back of hand clobetasol 0.05 % ointment 1 appl topical BID Marianna Autoinjector (3 Pack) 80 mg/mL auto-injector subcut Print Language: Fijian
--- NOTE | 2024-07-07 17:48 | ECG_ITS ---
Test Reason : CHEST PAIN Blood Pressure : */* mmHG Vent. Rate : 77 BPM Atrial Rate : 77 BPM P-R Int : 170 ms QRS Dur : 94 ms QT Int : 398 ms P-R-T Axes : 53 0 17 degrees QTcB Int : 450 ms Normal sinus rhythm Normal ECG When compared with ECG of 27-Jun-2023 18:15, No significant change was found Referred By: Beth Sanches Electronically Signed By: DAVID VILLA
[2024-07-07 17:52] LABS: Influenza A PCR NEGATIVE (Negative); Influenza B PCR NEGATIVE (Negative); Resp Syncy Virus RNA Qual PCR NEGATIVE (Negative); SARS COV2 PCR INHOUSE NEGATIVE (Negative)
--- NOTE | 2024-07-07 18:28 | PC.NURSE ---
This RN resumed care of patient, pt was pulled from a trauma room and brought into ED6, orders placed for EKG (CP) and labs on pt by provider, which were delayed d/t staff being with a critical pt. EKG just performed and presented to MD, labs being obtained now. Pt is A/O, at time of moving pt out of room she was resting comfortably, on RA, in no distress at that time. Pt placed back on monitor at this time.
[2024-07-07 18:39] LABS: MANUAL DIFF FLAG NO
[2024-07-07 18:49] LABS: Basophils Percent Auto 0.3 % (0-2); Eosinophils Absolute Auto 0.1 X10*3/uL (0.0-0.4); Eosinophils Percent Auto 1.2 % (0-4); Hematocrit 43.6 % (37.0-47.0); Hemoglobin 14.6 g/dl (12.0-16.0); Imm Gran Abs Auto 0.04 X10*3/uL (0.00-0.03); Imm Gran Pct Auto 0.4 % (0.0-0.4); Lymphocytes Absolute Auto 2.7 X10*3/uL (1.2-4.9); Lymphocytes Percent Auto 26.7 % (20-40); Mean Corpuscular HGB Conc 33.5 g/dl (31.0-35.0); Mean Corpuscular Hemoglobin 29.4 pg (27.0-33.0); Mean Corpuscular Volume 87.7 fL (80.0-98.0); Mean Platelet Volume 9.1 fL (9.4-12.3); Monocytes Absolute Auto 0.7 X10*3/uL (0.1-1.2); Monocytes Percent Auto 6.7 % (2-11); Neutrophils Absolute Auto 6.6 x10*3/uL (2.0-8.3); Neutrophils Percent Auto 64.7 % (45-73); Platelet Count 236 X10*3/uL (160-400); Red Blood Count 4.97 X10*6/uL (4.20-5.50); Red Cell Distribution Width 13.8 % (11.0-16.0); White Blood Count 10.2 X10*3/uL (4.8-10.8)
[2024-07-07 19:01] LABS: Alanine Aminotransferase 34 U/L (0-31); Albumin Level 4.3 g/dL (3.5-5.0); Alkaline Phosphatase 93 U/L (39-117); Anion Gap 15 (12-20); Aspartate Amino Transferase 22 U/L (5-31); Bilirubin Direct 0.2 mg/dL (0.0-0.5); Bilirubin Total 0.6 mg/dL (0.0-1.0); Blood Urea Nitrogen 13 mg/dL (9-16); Calcium 10.1 mg/dL (8.4-10.2); Carbon Dioxide 25 mmol/L (22-29); Chloride 109 mmol/L (96-108); Creatinine Clr Calc Pharmacy 97.2; Estimated Glomerular Filt Rate > 60; Glucose Random 124 mg/dL (60-115); Magnesium 1.7 mg/dL (1.6-2.6); Potassium 3.7 mmol/L (3.3-5.1); Sodium 145 mmol/L (135-145); Total Protein 6.9 g/dL (6.5-8.0); Troponin-I High Sensitivity < 2.7 ng/L (<3.5-17.0)
[2024-07-07 19:15] LABS: TSH reflex Free T4 0.79 uIU/mL (0.32-4.0)
[2024-07-07 20:07] VITALS: BP 150/89; PULSE 86; RESP 18; TEMP 36.7; O2SAT 98
== END 2024-07-07 20:08 | disposition home or self-care (01) ==
PROVIDERS: Nurse Practitioner Family; Physician Assistant Medical; Emergency Provider Emergency Medicine; PCP Internal Medicine
DX: I10 Essential (primary) hypertension (principal); Z03.818 Encounter for observation for suspected exposure to other biological agents ruled out; E11.9 Type 2 diabetes mellitus without complications; J45.909 Unspecified asthma, uncomplicated; E78.5 Hyperlipidemia, unspecified; Z79.84 Long term (current) use of oral hypoglycemic drugs; Z79.82 Long term (current) use of aspirin; Z79.899 Other long term (current) drug therapy; Z79.02 Long term (current) use of antithrombotics/antiplatelets
CPT/HCPCS: 0241U; 36415; 71046; 80048; 80076; 83735; 84443; 84484; 85025; 93005; 99283; 99284

== ENCOUNTER → 2024-07-07 17:48 | Outpatient (BNV) | payer OTHER, SELFPAY | PROVIDERS: Emergency Provider Emergency Medicine; PCP Internal Medicine; Visit Provider Radiology Diagnostic Radiology | DX: R07.9 Chest pain, unspecified (principal) | CPT/HCPCS: 71046 ==

== ENCOUNTER → 2024-07-07 17:48 | Outpatient (BNV) | payer OTHER, SELFPAY | PROVIDERS: Emergency Provider Emergency Medicine; PCP Internal Medicine; Visit Provider Internal Medicine | DX: R07.9 Chest pain, unspecified (principal) | CPT/HCPCS: 93010 ==

== ENCOUNTER 2024-08-06 11:11 | Outpatient (REF) | payer OTHER, SELFPAY ==
[2024-08-06 11:32] VITALS: BP 139/98; PULSE 88; RESP 20; TEMP 36.3; O2SAT 96; BMI 39.2
== END 2024-08-06 11:12 | disposition home or self-care (01) ==
LOC: HO.MS 11:11
PROVIDERS: PCP Internal Medicine; Visit Provider Ophthalmology
PROC: (CPT 67840; principal; 2024-08-06 15:00)
DX: H02.825 Cysts of left lower eyelid (principal)
CPT/HCPCS: 67840; 88305; J2004

== ENCOUNTER 2024-08-09 13:32 | Outpatient (AMB) | payer OTHER, SELFPAY ==
[2024-08-09 14:04] VITALS: BP 111/67; PULSE 101; O2SAT 97; BMI 34.8
--- NOTE | 2024-08-09 14:04 | MHC.OFFVIS ---
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 phentermine Allergy (Intermediate, Verified 08/09/24 14:09) ANXIETY tramadol Allergy (Intermediate, Verified 08/09/24 14:09) stomach upset adhesive tape [ADHESIVE TAPE] Allergy (Mild, Verified 08/09/24 14:09) RASH oxycodone [OXYCODONE] Adverse Reaction (Intermediate, Verified 08/09/24 14:09) VOMITING acetaminophen [From Percocet] Adverse Reaction (Verified 08/09/24 14:09) Vomiting apremilast [From Otezla] Adverse Reaction (Verified 08/09/24 14:09) diarrhea, nausea HPI HPI Asthma: Details: 59-year-old lady, nonsmoker, with underlying history of lifelong asthma previously controlled on Spiriva, Advair, and albuterol MDI, also with COVID-19 back in March of 2021. Now followed for asthma and environmental allergies. Patient's symptoms are now well controlled on Xolair, Advair, albuterol MDI, and nasal ipratropium. She denies any recent exacerbations. She does complain of orthopnea. [facility] Medical History (Updated 08/09/24 @ 14:31 by Mikal Gomez MD) BRCA negative Hx of acute myeloid leukemia in remission Benign paroxysmal positional vertigo Hospital discharge follow-up Abscess Essential hypertension Diabetes mellitus Migraines Hand numbness Mild persistent asthma Impaired glucose tolerance Mild recurrent major depression Herpes simplex type 2 infection Mixed hyperlipidemia Supraventricular tachycardia Left leg pain GERD (gastroesophageal reflux disease) Insomnia Left knee pain Nausea Depression with anxiety Surgical History History of esophagogastroduodenoscopy (EGD) Hx of colonoscopy History of removal of cyst History of surgery History of total abdominal hysterectomy History of cardiac radiofrequency ablation Family History Father Brain cancer Mother Esophageal cancer Sister Breast cancer Paternal Uncle Diabetes Hypertension Sister Colon cancer, Onset Age: 63 Social History Household Members: Children Housing: House Do you presently have visiting nurse or other home services: Yes Alcohol intake: never Patient Tobacco Use Status: Never used Tobacco e-Cigarette/Vaping Use: Never Used Second Hand Smoke Exposure: No Advance Directives Date on File: 03/11/23 service: No Current occupational status: unemployed Sexual orientation: Straight/Heterosexual Gender identity: Female Cognitive needs: No Hearing needs: No Vision needs: No Female Reproductive History Menstrual Age of Menarche: 13 Review of Systems Const Denies daytime sleepiness, Denies excessive sweating, Denies fatigue, Denies fever(s), Denies lethargy, Denies malaise, Denies night sweats, Denies snoring and Denies weight loss Eyes Denies blurry vision and Denies itchy eyes ENT Denies nasal congestion, Denies post nasal drip, Denies sinus pain, Denies sinus pressure and Denies other ( Thrush) Card Denies chest pain, Denies pedal edema, Denies dyspnea, Reports dyspnea on exertion, Denies orthopnea and Denies paroxysmal nocturnal dyspnea Resp Denies cough, Denies hemoptysis, Denies excessive phlegm production, Denies dyspnea, Reports dyspnea on exertion, Denies snoring and Denies wheezing GI Denies abdominal pain and Denies heartburn Musc Denies myalgias, Denies arthralgias and Denies joint swelling Skin/Breast Denies rash Neuro Denies memory loss and Denies seizure-like activity Psych Denies abnormal sleep pattern, Denies anxiety and Denies memory loss Endo Denies excessive sweating, Denies fatigue and Denies heat intolerance Zak/Lymph Denies easy bruising Aller/Immun Denies itchy eyes, Denies seasonal rhinorrhea and Denies wheezing Physical Exam Vital Signs: Last Vital Signs Pulse 101 H 08/09/24 14:04 BP 111/67 08/09/24 14:04 Pulse Ox 97 08/09/24 14:04 Oxygen Delivery Method Room Air 08/09/24 14:04 BMI result Body Mass Index 34.8 Const General: no acute distress and alert Nutritional Appearance: obese Orientation/consciousness: Other orientation findings ( oriented) HEENT Head: Yes atraumatic Eyes General: appearance normal, both eyes and all related structures Sclerae: sclerae normal EOM: EOMs intact bilaterally Neck Neck: Yes supple Lymphatic: no lymphadenopathy noted Resp Effort & Inspection: normal respiratory effort and no use of accessory muscles Auscultation: clear to auscultation bilaterally Cardio Rate: regular rate Rhythm: regular rhythm Heart sounds: no gallops, no murmurs and no rubs Skin General skin exam: other ( warm) Extrem General: No clubbing, No cyanosis and No edema Assessment & Plan Assessment & Plan (1) Severe persistent asthma: Code(s): J45.50 - Severe persistent asthma, uncomplicated Category: Medical Plan: Well controlled on current regimen of Xolair, Advair, and albuterol MDI. Continue current regimen. (2) Environmental allergies: Code(s): Z91.09 - Other allergy status, other than to drugs and biological substances Category: Medical Plan: Well controlled on Xolair. Continue current regimen. (3) Orthopnea: Code(s): R06.01 - Orthopnea Category: Medical Plan: Worsening orthopnea and some lower extremity edema. Will obtain 2D echocardiogram and start on empiric furosemide 20 mg daily. Coding Level of Care Code Est Pt Level 4 (64775) Complex EM visit Add On G2211 Diagnoses Severe persistent asthma J45.50 Environmental allergies Z91.09 Orthopnea R06.01
== END 2024-08-09 14:29 | disposition home or self-care (01) ==
LOC: HO.HPS 13:33
PROVIDERS: PCP Internal Medicine; Visit Provider Internal Medicine Pulmonary Disease
DX: J45.50 Severe persistent asthma, uncomplicated (principal); Z91.09 Other allergy status, other than to drugs and biological substances; R06.01 Orthopnea
CPT/HCPCS: 99214; G2211

== ENCOUNTER → 2024-08-09 13:32 | Outpatient (BNVA) | payer OTHER, SELFPAY | PROVIDERS: PCP Internal Medicine; Visit Provider Internal Medicine Pulmonary Disease | DX: J45.50 Severe persistent asthma, uncomplicated (principal); Z91.09 Other allergy status, other than to drugs and biological substances; R06.01 Orthopnea | CPT/HCPCS: 99212 ==

== ENCOUNTER 2024-09-02 11:35 | Emergency (ER) | payer OTHER, SELFPAY ==
[2024-09-02] VITALS (8 sets, daily range): BP systolic 111–149; BP diastolic 75–96; PULSE 60–102; RESP 12–19; TEMP 36.8–37.1; O2SAT 95–100; BMI 33.9
--- NOTE | ~2024-09-02 | XR_ITS ---
CLINICAL HISTORY: chest pressure, SOB Chest Radiographs, 2 views Comparison: CR - XR CHEST 2V - 07/07/24 18:05 EDT CR/[place]/SR - XR CHEST 2V - 06/27/23 18:34 EDT CR/SR - XR CHEST 2V - 06/23/22 03:01 EDT Findings: No cardiomegaly. Normal mediastinal contours. No pneumothorax. No opacity. No pleural effusion. Normal upper abdomen. No acute fracture. Impression: No acute findings. This document has been electronically signed by: Conchis Pena MD on 09/02/2024 13:33:13
--- NOTE | ~2024-09-02 | CT_ITS ---
CLINICAL HISTORY: dizziness. CT head without contrast Comparison: MR/SR - MR HEAD/BRAIN WO CON - 03/10/23 17:[address]/REG - CT ANGIO HEAD NECK STROKE - 03/10/23 12:[address]/REG/NC/SR - CT HEAD FOR STROKE - 03/10/23 12:18 EST Findings: No acute hemorrhage. No extra-axial fluid collection. No hydrocephalus, mass-effect or herniation. Godinez-white differentiation is maintained. White matter is within normal limits for age. No acute orbital pathology. No acute soft tissue abnormality. No fracture. The visualized paranasal sinuses are predominantly clear. The mastoid air cells are clear. Impression: No acute findings. This document has been electronically signed by: Conchis Pena MD on 09/02/2024 15:35:29
--- NOTE | 2024-09-02 11:38 | ED.GENADULT ---
HPI - General Adult General Chief complaint: Weakness Stated complaint: Lung pain , dizzy, numbness in fingers Time Seen by Provider: 09/02/24 11:50 Source: patient Mode of arrival: ambulatory Limitations: no limitations History of Present Illness ED Provider: Richie De Souza HPI narrative: 59 yold female with pmh of Diabetes, HTN presents to the ED dry mouth, weakness/dizzy described as fatigue, SOB, chest pressure for the past 3 days. Patient states she stopped taking her lasix since tuesday. patient denies any recent long travle, recent surgery, or calf pain. Patient denies any slurred speech, loss of vision, trouble walking, or sensatin of falling. Related Data Home Medications ?Medication ?Instructions ?Recorded ?Confirmed lorazepam 1 mg tablet 1 mg PO TID PRN Anxiety 02/13/20 06/26/24 zolpidem 10 mg tablet 10 mg PO BEDTIME PRN Insomnia 02/13/20 06/26/24 fluticasone propionate 115 2 puff PO BID 05/06/21 06/26/24 mcg-salmeterol 21 mcg/actuation HFA inhaler (Advair HFA) loratadine 10 mg tablet 10 mg PO DAILY PRN Allergy Symptoms 08/09/22 06/26/24 paroxetine HCl 10 mg tablet 10 mg PO QAM 08/09/22 06/26/24 triamcinolone acetonide 0.1 % topical 06/20/23 06/26/24 topical ointment paroxetine HCl 40 mg tablet 20 mg PO DAILY 06/30/23 06/26/24 clobetasol 0.05 % topical ointment 1 appl topical BID 07/03/24 ixekizumab 80 mg/mL subcutaneous mg subcut 07/03/24 auto-injector (Canvitatz Autoinjector (3 Pack)) Previous Rx's ?Medication ?Instructions ?Recorded nebulizers (Aeroneb Go Nebulizer) #1 ea 02/05/21 meclizine 25 mg tablet 25 mg PO Q6H PRN Vertigo #30 tabs 05/16/22 ipratropium bromide 42 mcg (0.06 2 spray intranasal TID-QID PRN 07/09/22 %) nasal spray allergy symptoms 30 days #15 mL blood sugar diagnostic (Digital Dream LabsTouch #100 ea 12/23/22 Ultra Test strips) blood-glucose meter (OneTouch #1 ea 12/23/22 Ultra2 Meter) lancets 30 gauge (OneTouch #100 ea 12/23/22 UltraSoft 2 Lancet) omalizumab 150 mg subcutaneous 300 mg subcut Q4W 28 days #1 ea 06/16/23 solution (Xolair) metformin 850 mg tablet 850 mg PO DAILY #180 tabs 07/01/23 metoprolol succinate 50 mg 50 mg PO DAILY #90 tabs 11/18/23 tablet,extended release 24 hr bisacodyl 5 mg tablet (Laxative 5 mg PO DAILY #30 tabs 03/19/24 (bisacodyl)) fenofibrate 54 mg tablet 54 mg PO DAILY #90 tabs 06/13/24 esomeprazole magnesium 40 mg 40 mg PO DAILY #30 ea 06/18/24 granules delayed release for susp linaclotide 72 mcg capsule 72 mcg PO DAILY #30 caps 06/18/24 ondansetron 4 mg disintegrating 4 mg PO Q8H PRN for 06/20/24 tablet nausea/vomiting #10 tabs diclofenac sodium 1 % topical gel 2 g topical QID 30 days #100 grams 06/26/24 (Arthritis Pain (diclofenac)) rosuvastatin 40 mg tablet 40 mg PO DAILY 90 days #90 tabs 06/26/24 tirzepatide 7.5 mg/0.5 mL 7.5 mg (0.5 mL) subcut QWEEK 4 07/03/24 subcutaneous pen injector weeks #2 mL (Mounjaro) tirzepatide 10 mg/0.5 mL 10 mg (0.5 mL) subcut QWEEK 4 07/31/24 subcutaneous pen injector weeks #2 mL (Mounjaro) furosemide 20 mg tablet 20 mg PO DAILY #30 tabs 08/09/24 aspirin 81 mg tablet,delayed 81 mg PO DAILY 90 days #90 tabs 08/19/24 release (Adult Aspirin Regimen) empagliflozin 10 mg tablet 10 mg PO DAILY 90 days #90 tabs 08/24/24 (Jardiance) polyethylene glycol 3350 17 17 g PO DAILY #510 grams 09/05/24 gram/dose oral powder Allergies Allergy/AdvReac Type Severity Reaction Status Date / Time bee pollen (BEE STINGS) Allergy Intermediate RASH Verified 09/02/24 11:44 SWELLING PAIN FULL. phentermine Allergy Intermediate ANXIETY Verified 09/02/24 11:44 tramadol Allergy Intermediate stomach Verified 09/02/24 11:44 upset adhesive tape (ADHESIVE TAPE) Allergy Mild RASH Verified 09/02/24 11:44 oxycodone (OXYCODONE) AdvReac Intermediate VOMITING Verified 09/02/24 11:44 acetaminophen (From Percocet) AdvReac Vomiting Verified 09/02/24 11:44 apremilast (From Otezla) AdvReac diarrhea, Verified 09/02/24 11:44 nausea Review of Systems Review of Systems: dizziness/weakness described as fatigue, dry mouth, chest pain, and sOB Yes all other systems are reviewed and are negative [facility] Past Medical History Medical History (Updated 09/03/24 @ 00:01 by Lily Guajardo) BRCA negative Hx of acute myeloid leukemia in remission Benign paroxysmal positional vertigo Hospital discharge follow-up Abscess Essential hypertension Diabetes mellitus Migraines Hand numbness Mild persistent asthma Impaired glucose tolerance Mild recurrent major depression Herpes simplex type 2 infection Mixed hyperlipidemia Supraventricular tachycardia Left leg pain GERD (gastroesophageal reflux disease) Insomnia Left knee pain Nausea Depression with anxiety Surgical History History of esophagogastroduodenoscopy (EGD) Hx of colonoscopy History of removal of cyst History of surgery History of total abdominal hysterectomy History of cardiac radiofrequency ablation Family History Family History Father Brain cancer Mother Esophageal cancer Sister Breast cancer Paternal Uncle Diabetes Hypertension Sister Colon cancer, Onset Age: 63 Social History Social History Household Members: Children Housing: House Do you presently have visiting nurse or other home services: Yes Alcohol intake: never Patient Tobacco Use Status: Never used Tobacco Smoked in Last 30 Days: No e-Cigarette/Vaping Use: Never Used Second Hand Smoke Exposure: No Use of substances other than those prescribed or required for medical reasons: No Advance Directives: Yes Advance Directives on File: Yes Advance Directives Date on File: 03/11/23 Do you have a plan to hurt others: No Plan Patient : No service: No Current occupational status: unemployed Sexual orientation: Straight/Heterosexual Gender identity: Female Cognitive needs: No Hearing needs: No Vision needs: No Physical Exam ED Vital Signs: Vital Signs - 24 hr 09/02/24 11:37 09/02/24 12:00 09/02/24 13:03 Temperature 98.3 F 98.5 F Pulse Rate 102 H 98 92 Respiratory Rate 16 19 Blood Pressure 149/96 H 122/82 119/82 Pulse Oximetry 96 98 Oxygen Delivery Method Room Air Room Air 09/02/24 13:03 09/02/24 13:04 09/02/24 14:00 Temperature 98.4 F Pulse Rate 95 100 90 Respiratory Rate 19 Blood Pressure 123/81 111/83 127/87 Pulse Oximetry 95 Oxygen Delivery Method Room Air 09/02/24 16:00 Temperature 98.6 F Pulse Rate 60 Respiratory Rate 12 Blood Pressure 132/75 Pulse Oximetry 100 Oxygen Delivery Method Room Air BMI result Body Mass Index 33.9 Const General: cooperative, healthy appearing, comfortable, no acute distress, well developed, alert, awake and Physically active Orientation/consciousness: patient oriented x3 HENAK Head: Yes normal to inspection, Yes No palpable skull fracture present, Yes normocephalic and Yes atraumatic Eyes General: appearance normal, both eyes and all related structures Neck Neck: Yes normal visual inspection, Yes full ROM, Yes no lymphadenopathy, Yes no meningeal signs, Yes trachea midline, Yes supple, No anterior neck swelling and No tender Chest Chest palpation & inspection: normal inspection of the chest and normal palpation of entire chest wall Resp Effort & Inspection: normal respiratory effort and able to speak in complete sentences Auscultation: clear to auscultation bilaterally Cardio Jugular venous distension: no JVD Heart sounds: S1 normal heart sound present and S2 normal heart sound present GI Inspection: Yes normal to inspection Palpation (GI): Soft to palpation, not firm, nontender, no guarding and not rigid General: Yes no CVA tenderness Back/Spine/Pelvis Back: no CVA tenderness and No back tenderness Skin General skin exam: no rashes or lesions noted, elasticity normal and turgor normal Neuro Other: Negative facial droop. Negative slurred speech. Negative Romberg. [id number] rapid hand movement intact. All extremities equal strength 5+ General: patient oriented x3, gait normal, tone normal, moves all extremities, Normal light touch and pain sensation, no meningeal signs, no focal motor deficits, CN's II-XI intact bilaterally and normal sensation to monofilament Extrem General: Yes normal to inspection, Yes full ROM and Yes capillary refill normal Psych Appearance: grossly normal, well kempt and not disheveled Course Course Course Narrative: 09/02/24 1139 MARLENY Browning This is a Rapid Medical Examination (RME) performed by Cortez Mccoy PA-C in triage. Full HPI, ROS, assessment and treatment plan per primary provider in the Main ED. Hx: 59 yo English speaking F hx of hypertension on lisinopril, diabetes, asthma, hyperlipidemia, GERD, anxiety, depression here for eval of dizziness, dry mouth, chest pressure, shortness of breath, and elevated blood sugars (200's) x3 days. checked her sugar at 0700 and it was 214, symptoms have continued. reports she recently self discontinued her lasix. Plan: labs, ekg, cxr Medications Administered Discontinued Medications Generic Name Dose Route Start Last Admin Trade Name Freq PRN Reason Stop Dose Admin Sodium Chloride 1,000 mls @ 999 mls/hr 09/02/24 13:23 09/02/24 14:50 Ns IV 09/02/24 14:23 Infused .Q1H1M STA Infusion Medical Decision Making Medical Decision Making [facility] Narrative: 59-year-old female presents to ED for dry mouth, chest pressure, shortness of breath, dizziness weakness described as fatigue for the past 3 days. Presently NIH score is 0. EKG labs ordered. Chest x-ray ordered. Orthostatics ordered. Urine ordered. SARS ordered 4:01pm: Patient presently no longer having any dizziness weakness chest pain or shortness of breath. Orthostatics negative. Head CT scan negative. Pending 2nd troponin. Pending UA. Patient states dry mouth is only constant symptom. Oral exam negative for signs of thrush, trismus, lesions, Сергей's angina, retropharyngeal abscess, or signs of peritonsillar abscess. Not suspecting Сергей's angina retropharyngeal abscess. Negative for any neck swelling. Not suspecting PE patient has no pleurisy, recent long travel, or recent surgery.. Chest x-ray negative for any signs of fluid overload. BNP negative. NIH score is 0 not suspecting stroke. Patient is sleeping comfortably in bed. 5:45pm: 2nd troponin negative. UA negative. NOt suspecting Aortic dissection, cardiac tamponade, sepsis, posterior stroke, or any other life threatening etiologies. Differential Diagnosis Differential Diagnoses: The differential diagnosis associated with the presentation includes (Rhabdomyolysis, CO, orthostatic hypotension, UTI,) Admission/Observation Consideration of admission/observation: Escalation of care including admission/observation considered Lab Data MDM Lab Attestation statement: I reviewed the patient's lab results. 09/02/24 11:53 09/02/24 11:53 Labs: Lab Results 09/02/24 09/02/24 09/02/24 Range/Units 11:53 15:37 16:29 WBC 11.1 H (4.8-10.8) X10*3/uL RBC 5.28 (4.20-5.50) X10*6/uL Hgb 15.7 (12.0-16.0) g/dl Hct 46.1 (37.0-47.0) % MCV 87.3 (80.0-98.0) fL MCH 29.7 (27.0-33.0) pg MCHC 34.1 (31.0-35.0) g/dl RDW 14.2 (11.0-16.0) % Plt Count 294 (160-400) X10*3/uL MPV 8.6 L (9.4-12.3) fL Immature Gran % (Auto) 1.5 H (0.0-0.4) % Neut % (Auto) 62.6 (45-73) % Lymph % (Auto) 26.2 (20-40) % [place] % (Auto) 8.8 (2-11) % Eos % (Auto) 0.5 (0-4) % Baso % (Auto) 0.4 (0-2) % Lymph # (Auto) 2.9 (1.2-4.9) X10*3/uL [place] # (Auto) 1.0 (0.1-1.2) X10*3/uL Eos # (Auto) 0.1 (0.0-0.4) X10*3/uL Baso # (Auto) 0.0 (0.0-0.2) X10*3/uL Abs Immat Gran (auto) 0.17 H (0.00-0.03) X10*3/uL Absolute Neuts (auto) 7.0 (2.0-8.3) x10*3/uL Absolute Nucleated RBC 0.000 (0.0-0.012) X10*3/uL Nucleated RBC % (auto) 0.0 (0.0-0.2) /100WBC PT 10.2 L (10.9-12.4) SEC INR 0.9 (0.9-1.1) APTT 25.1 L (26.0-36.8) SEC Sodium 137 (135-145) mmol/L Potassium 3.6 (3.3-5.1) mmol/L Chloride 105 (96-108) mmol/L Carbon Dioxide 19 L (22-29) mmol/L Anion Gap 17 (12-20) BUN 16 (9-16) mg/dL Creatinine 0.79 (0.5-1.4) mg/dL Estim Creat Clear Calc 93.3 Estimated GFR > 60 Random Glucose 278 H (60-115) mg/dL Calcium 9.7 (8.4-10.2) mg/dL Magnesium 1.7 (1.6-2.6) mg/dL Total Bilirubin 1.0 (0.0-1.0) mg/dL AST 21 (5-31) U/L ALT 26 (0-31) U/L Alkaline Phosphatase 85 (39-117) U/L Total Creatine Kinase 34 (26-140) U/L Troponin I High Sens 2.9 2.7 (<3.5-17.0) ng/L B-Natriuretic Peptide < 10 (<100) pg/mL Total Protein 7.1 (6.5-8.0) g/dL Albumin 4.4 (3.5-5.0) g/dL Lipase 27 (8-78) U/L Urine Color Urine Appearance Urine pH (5.0-9.0) Ur Specific [place] (1.005-1.025) Urine Protein (Neg-Trace) mg/dL Urine Glucose (UA) (Negative) mg/dL Urine Ketones (Negative) mg/dL Urine Blood (Negative) Urine Nitrite (Negative) Ur Leukocyte Esterase (Negative) Urine RBC (0-2) /HPF Urine WBC (0-5) /HPF Ur Squamous Epith Cells (0-2) /HPF Urine Bacteria (None Seen) Hyaline Casts (0-2) /LPF Urine Yeast Influenza Type A (PCR) NEGATIVE (Negative) Influenza Type B (PCR) NEGATIVE (Negative) RSV RNA Qual (PCR) NEGATIVE (Negative) SARS-CoV-2 RNA (RT-PCR) NEGATIVE (Negative) S. pyogenes GrpA OLIVIA Negative (Negative) 09/02/24 Range/Units 17:24 WBC (4.8-10.8) X10*3/uL RBC (4.20-5.50) X10*6/uL Hgb (12.0-16.0) g/dl Hct (37.0-47.0) % MCV (80.0-98.0) fL MCH (27.0-33.0) pg MCHC (31.0-35.0) g/dl RDW (11.0-16.0) % Plt Count (160-400) X10*3/uL MPV (9.4-12.3) fL Immature Gran % (Auto) (0.0-0.4) % Neut % (Auto) (45-73) % Lymph % (Auto) (20-40) % [place] % (Auto) (2-11) % Eos % (Auto) (0-4) % Baso % (Auto) (0-2) % Lymph # (Auto) (1.2-4.9) X10*3/uL [place] # (Auto) (0.1-1.2) X10*3/uL Eos # (Auto) (0.0-0.4) X10*3/uL Baso # (Auto) (0.0-0.2) X10*3/uL Abs Immat Gran (auto) (0.00-0.03) X10*3/uL Absolute Neuts (auto) (2.0-8.3) x10*3/uL Absolute Nucleated RBC (0.0-0.012) X10*3/uL Nucleated RBC % (auto) (0.0-0.2) /100WBC PT (10.9-12.4) SEC INR (0.9-1.1) APTT (26.0-36.8) SEC Sodium (135-145) mmol/L Potassium (3.3-5.1) mmol/L Chloride (96-108) mmol/L Carbon Dioxide (22-29) mmol/L Anion Gap (12-20) BUN (9-16) mg/dL Creatinine (0.5-1.4) mg/dL Estim Creat Clear Calc Estimated GFR Random Glucose (60-115) mg/dL Calcium (8.4-10.2) mg/dL Magnesium (1.6-2.6) mg/dL Total Bilirubin (0.0-1.0) mg/dL AST (5-31) U/L ALT (0-31) U/L Alkaline Phosphatase (39-117) U/L Total Creatine Kinase (26-140) U/L Troponin I High Sens (<3.5-17.0) ng/L B-Natriuretic Peptide (<100) pg/mL Total Protein (6.5-8.0) g/dL Albumin (3.5-5.0) g/dL Lipase (8-78) U/L Urine Color Yellow Urine Appearance Clear Urine pH 5.5 (5.0-9.0) Ur Specific [place] >= 1.030 H (1.005-1.025) Urine Protein Negative (Neg-Trace) mg/dL Urine Glucose (UA) >=1000 H (Negative) mg/dL Urine Ketones Trace (Negative) mg/dL Urine Blood Negative (Negative) Urine Nitrite Negative (Negative) Ur Leukocyte Esterase Small (1+) H (Negative) Urine RBC 0-2 (0-2) /HPF Urine WBC 0-5 (0-5) /HPF Ur Squamous Epith Cells 3-5 (0-2) /HPF Urine Bacteria 2+ (None Seen) Hyaline Casts 0-2 (0-2) /LPF Urine Yeast Present Influenza Type A (PCR) (Negative) Influenza Type B (PCR) (Negative) RSV RNA Qual (PCR) (Negative) SARS-CoV-2 RNA (RT-PCR) (Negative) S. pyogenes GrpA OLIVIA (Negative) Independent Interpretation I performed an independent interpretation of an: EKG (Sinus tach) Independent Historian Clinical information obtained from an independent historian. History obtained from or confirmed by: Other (patient) Prescription Management I considered prescription management with: Pain Medication Discharge Plan Discharge Clinical Impression: Dizziness, Chest pain Patient Disposition: Home, Self-Care Instructions: Chest Pain (ED), Lightheadedness (ED), Dizziness (ED) Additional Instructions: Recommend follow-up with your primary care provider. EKG and labs and head CT scan came back reassuring. Return to the ED immediately for any chest pain, shortness of breath, coughing up blood, chest pain on inspiration, leg swelling calf pain, slurred speech, facial droop, paralysis of extremities, loss of vision, or any other concerning symptoms. Prescriptions: No Action (DME) Aeroneb Go Nebulizer Misc See Rx Instructions .Route Qty: 1 0RF Rx Instructions: As directed (DME) blood-glucose meter [OneTouch Ultra2 Meter] Misc See Rx Instructions .Route Qty: 1 0RF Rx Instructions: As directed (DME) OneTouch Ultra Test Strip See Rx Instructions .Route Qty: 100 3RF Rx Instructions: Use 1 test strip once a day (DME) lancets [OneTouch UltraSoft 2 Lancet] 30 gauge misc See Rx Instructions .Route Qty: 100 3RF Rx Instructions: Use 1 lancet once a day Xolair 150 mg recon soln 300 mg subcut Q4W 28 Days Qty: 1 12RF Rx Instructions: requires multiple injection sites; do not exceed 150 mg per injection site metformin 850 mg tablet 850 mg PO DAILY Qty: 180 0RF Laxative (bisacodyl) 5 mg tablet 5 mg PO DAILY Qty: 30 0RF fenofibrate 54 mg tablet 54 mg PO DAILY Qty: 90 0RF ondansetron 4 mg tablet,disintegrating 4 mg PO Q8H PRN (Reason: for nausea/vomiting) Qty: 10 0RF Mounjaro 7.5 mg/0.5 mL pen injector 7.5 mg subcut QWEEK 28 Days Qty: 2 0RF Mounjaro 10 mg/0.5 mL pen injector 10 mg subcut QWEEK 28 Days Qty: 2 0RF aspirin [Adult Aspirin Regimen] 81 mg tablet,delayed release (DR/EC) 81 mg PO DAILY 90 Days Qty: 90 0RF Jardiance 10 mg tablet 10 mg PO DAILY 90 Days Qty: 90 0RF polyethylene glycol 3350 17 gram/dose powder 17 g PO DAILY Qty: 510 0RF meclizine 25 mg Tablet 25 mg PO Q6H PRN (Reason: Vertigo) Qty: 30 0RF paroxetine HCl 40 mg tablet 20 mg PO DAILY lorazepam 1 mg tablet 1 mg PO TID PRN (Reason: Anxiety) zolpidem 10 mg tablet 10 mg PO BEDTIME PRN (Reason: Insomnia) Advair HFA 115-21 mcg/actuation HFA aerosol inhaler 2 puff PO BID triamcinolone acetonide 0.1 % ointment topical paroxetine HCl 10 mg tablet 10 mg PO QAM loratadine 10 mg tablet 10 mg PO DAILY PRN (Reason: Allergy Symptoms) ipratropium bromide 42 mcg (0.06 %) spray,non-aerosol 2 spray intranasal TID-QID PRN (Reason: allergy symptoms) 30 Days Qty: 15 6RF Rx Instructions: administer into each nostril metoprolol succinate 50 mg tablet extended release 24 hr 50 mg PO DAILY Qty: 90 3RF Rx Instructions: dose increased linaclotide 72 mcg capsule 72 mcg PO DAILY Qty: 30 3RF esomeprazole magnesium [address] for susp in packet 40 mg PO DAILY Qty: 30 2RF rosuvastatin 40 mg tablet 40 mg PO DAILY 90 Days Qty: 90 1RF diclofenac sodium [Arthritis Pain (diclofenac)] 1 % gel 2 g topical QID 30 Days Qty: 100 1RF Rx Instructions: apply to single elbow, wrist or hand; for hand includes palm/fingers/back of hand furosemide 20 mg tablet 20 mg PO DAILY Qty: 30 6RF clobetasol 0.05 % ointment 1 appl topical BID Taltz Autoinjector (3 Pack) 80 mg/mL auto-injector subcut Referrals: Kayy Escobar MD [Primary Care Provider, Internal Medicine] - 1 day Referral Note: Dizziness, resolved chest pain Clinical Impression: Dizziness; Chest pain Stand Alone Forms: Work/School Release Interventions: ED Discharge Assessment Last Done: 09/02/24 18:16 Discharge Date/Time: 09/02/24 18:16 Print Language: English
--- NOTE | 2024-09-02 11:43 | ECG_ITS ---
Test Reason : sob Blood Pressure : */* mmHG Vent. Rate : 101 BPM Atrial Rate : 101 BPM P-R Int : 144 ms QRS Dur : 88 ms QT Int : 376 ms P-R-T Axes : 37 -9 19 degrees QTcB Int : 487 ms Sinus tachycardia Minimal voltage criteria for LVH, may be normal variant ( R in aVL ) Borderline ECG When compared with ECG of 07-Jul-2024 18:15, No significant change was found Referred By: Jocelyne Mccoy Electronically Signed By: JUN OCHOA MD
[2024-09-02 11:58] LABS: MANUAL DIFF FLAG NO
[2024-09-02 12:01] LABS: Basophils Percent Auto 0.4 % (0-2); Eosinophils Absolute Auto 0.1 X10*3/uL (0.0-0.4); Eosinophils Percent Auto 0.5 % (0-4); Hematocrit 46.1 % (37.0-47.0); Hemoglobin 15.7 g/dl (12.0-16.0); Imm Gran Abs Auto 0.17 X10*3/uL (0.00-0.03); Imm Gran Pct Auto 1.5 % (0.0-0.4); Lymphocytes Absolute Auto 2.9 X10*3/uL (1.2-4.9); Lymphocytes Percent Auto 26.2 % (20-40); Mean Corpuscular HGB Conc 34.1 g/dl (31.0-35.0); Mean Corpuscular Hemoglobin 29.7 pg (27.0-33.0); Mean Corpuscular Volume 87.3 fL (80.0-98.0); Mean Platelet Volume 8.6 fL (9.4-12.3); Monocytes Percent Auto 8.8 % (2-11); Neutrophils Percent Auto 62.6 % (45-73); Platelet Count 294 X10*3/uL (160-400); Red Blood Count 5.28 X10*6/uL (4.20-5.50); Red Cell Distribution Width 14.2 % (11.0-16.0); White Blood Count 11.1 X10*3/uL (4.8-10.8)
[2024-09-02 12:18] LABS: Alanine Aminotransferase 26 U/L (0-31); Albumin Level 4.4 g/dL (3.5-5.0); Alkaline Phosphatase 85 U/L (39-117); Anion Gap 17 (12-20); Aspartate Amino Transferase 21 U/L (5-31); Blood Urea Nitrogen 16 mg/dL (9-16); Calcium 9.7 mg/dL (8.4-10.2); Carbon Dioxide 19 mmol/L (22-29); Chloride 105 mmol/L (96-108); Creatinine Clr Calc Pharmacy 93.3; Estimated Glomerular Filt Rate > 60; Glucose Random 278 mg/dL (60-115); Lipase 27 U/L (8-78); Magnesium 1.7 mg/dL (1.6-2.6); Potassium 3.6 mmol/L (3.3-5.1); Sodium 137 mmol/L (135-145); Total Protein 7.1 g/dL (6.5-8.0)
[2024-09-02 12:22] LABS: B Type Natriuretic Peptide < 10 pg/mL (<100)
[2024-09-02 12:26] LABS: Troponin-I High Sensitivity 2.9 ng/L (<3.5-17.0)
--- OUTSIDE RECORDS SUMMARY | 2024-09-02 12:27 | XMS_ITS | Data Portability ---
Author Organization [place] - [facility], Allergy Address [address] [place] [address] Care Team Providers Care Electric Switch Tester Name Role Phone TAMIA HERMAN Referring Provider Assessment Encounter Date Assessment Date [...] Organization Details Recorded Time Deviated nasal septum [id number] Active 2016 Deviated nasal septum; Note: Date Diagnosed: 05/06/2016 9:16 AM (J34.2) Not Available [facility] 4 02:50:30 Allergic rhinitis caused by pollen 15609495 Active 2015 Allergic rhinitis due to pollen; Note: Date Diagnosed: 11/18/2015 10:39 AM (J30.1) Not Available [facility] 4 02:50:33 Allergic rhinitis 45356862 Active 2016 Other allergic rhinitis; Note: Date Diagnosed: 05/06/2016 9:16 AM (J30.89) Jennifer l allergic rhinitis; Note: Date Diagnosed: 11/18/2015 10:39 AM (J30.89) ; Start Date : 11/18/2015 Not Available [facility] 4 02:50:28 Asthma 387272785 Active 2016 Other asthma; Note: Date Diagnosed: 05/06/2016 9:16 AM (J45.998) Not Available [facility] 4 02:50:30 Obstructi ve sleep apnea syndrome 69468764 Active 2016 Obstructiv e sleep apnea (adult) (pediatric ); Note: Date Diagnosed: 05/06/2016 9:16 AM (G47.33) Not Available [facility] 4 02:50:31 Chronic rhinitis 66111559 Active 2015 Chronic rhinitis; Note: Date Diagnosed: 10/23/2015 4:13 PM (J31.0) Not Available [facility] 4 02:50:32 Sensorine ural hearing loss of bilateral ears 079744122 Active 2024 [address]ARESH LINO [address], [address] , [facility] 5 10:08:59 Problem Notes None recorded. Procedures Surgical History Date Name Laterality Status Provider Name and Address Organization Details Recorded Time 03/28/2024 Comp Audio with Tymps - 05175 & 56739 completed NARESH LINO, [address], [address], [facility] 03/28/2024 10:08:52 Imaging Results None recorded. Procedure Notes None recorded. Medical Equipment None Reported. Medications Name Sig Start Date Stop Date Status Note LastModified by Organization Details LastModified Time cyclobenza salo 10 mg tablet 2015 active Medicatio n ID: [id number] Du ration Value: 30 Brand Name: cyclobenz aprine Se nd Method: E-Prescri bed Subs Allowed: subs OK Medica tionGener icName: cyclobenz aprine Not Available Not Available Not Available Qvar 80 mcg/actuat ion Metered Aerosol oral inhaler 2015 active Medicatio n ID: [id number] Du ration Value: 30 Brand Name: Qvar Send Method: E-Prescri bed Subs Allowed: subs OK Specia l Instructi on: TK 1 PUFF PO BID WITH SPACER FOR 30 DAYS Medi cationGen ericName: Qvar Not Available Not Available Not Available gabapentin 600 mg tablet 2015 active Medicatio n ID: [id number] Du ration Value: 30 Brand Name: gabapenti n Send Method: E-Prescri bed Subs Allowed: subs OK Specia l Instructi on: TK 1 T PO TID Medic ationGene ricName: gabapenti n Not Available Not Available Not Available propranolo l 80 mg tablet 2015 active Medicatio n ID: [id number] Br and Name: propranol ol Send Method: [...] nebulizati on 2015 active Medicatio n ID: [id number] Du ration Value: 25 Brand Name: Albuterol [...] mg tablet 2015 active Medicatio n ID: [id number] Du ration Value: 30 Brand Name: butalbita l-acetami nophen-ca ff Send Method: E-Prescri bed Subs Allowed: subs OK Specia l Instructi on: TK 1 T PO QD PRF PAZ Medica tionGener icName: butalbita l-acetami nophen-ca ff Not Available Not Available Not Available Medrol 4 mg tablet 2015 active Medicatio n ID: [id number] Br and Name: Medrol Se nd Method: [...] nasal spray 2015 active Medicatio n ID: [id number] Du ration Value: 30 Brand Name: flunisoli de Send Method: E-Prescri bed Subs Allowed: subs OK Specia l Instructi on: INL ONCE IEN D Medicat ionGeneri cName: flunisoli de Not Available Not Available Not Available paroxetine 20 mg tablet 2015 active Medicatio n ID: [id number] Du ration Value: 30 Brand Name: paroxetin [...] mg tablet 2015 active Medicatio n ID: [id number] Br and Name: Tylenol-C odeine #3 Send [...] mg tablet 2015 active Medicatio n ID: [id number] Du ration Value: 30 Brand Name: oxybutyni [...] mg capsule 2015 active Medicatio n ID: [id number] Br and Name: phentermi ne Send Method: E-Prescri bed Subs Allowed: subs OK Medica tionGener icName: phentermi ne Not Available Not Available Not Available loratadine 10 mg tablet TAKE 1 TABLET BY MOUTH DAILY active Not Available Not Available No t Available risperidon e 0.5 mg tablet 2015 active Medicatio n ID: [id number] Du ration Value: 30 Brand Name: risperido ne Send Method: E-Prescri bed Subs Allowed: subs OK Specia l Instructi on: TK 1 T PO QHS Medic ationGene ricName: risperido ne Not Available Not Available Not Available oxycodone 5 mg tablet 2015 active Medicatio n ID: [id number] Du ration Value: 3 Brand Name: oxycodone [...] mg tablet 2015 active Medicatio n ID: [id number] Du ration Value: 30 Brand Name: Vesicare Send Method: E-Prescri bed Subs Allowed: subs OK Specia l Instructi on: TK 1 T PO D Medicat ionGeneri cName: Vesicare Not Available Not Available Not Available Colace 2015 active Medicatio n ID: [id number] Br and Name: colace Se nd Method: E-Prescri bed Subs Allowed: subs OK Medica tionGener icName: colace Not Available Not Available Not Available naphazolin e 2015 active Medicatio n ID: [id number] Br and Name: naphazoli ne Send Method: E-Prescri bed Subs Allowed: subs OK Medica tionGener icName: naphazoli ne Not Available Not Available Not Available promethazi ne 2015 active Medicatio n ID: [id number] Br and Name: promethaz ine Send Method: E-Prescri bed Subs Allowed: subs OK Medica tionGener icName: promethaz ine Not Available Not Available Not Available Qvar 2015 active Medicatio n ID: [id number] Br and Name: qvar Send Method: E-Prescri bed Subs Allowed: subs OK Medica tionGener icName: qvar Not Available Not Available Not Available Xopenex HFA 45 mcg/actuat ion aerosol inhaler 2015 active Medicatio n ID: [id number] Du ration Value: 15 Brand Name: Xopenex [...] delayed release 2015 active Medicatio n ID: [id number] Du ration Value: 30 Brand Name: Dexilant Send Method: E-Prescri bed Subs Allowed: subs OK Specia l Instructi on: TK 1 C PO QPM AT SUPPER OR HS Medica tionGener icName: Dexilant Not Available Not Available Not Available lidocaine 5 % topical ointment 2015 active Medicatio n ID: [id number] Du ration Value: 15 Brand Name: lidocaine [...] Address Organization Details Last Updated DateTime 03/28/2024 997326.09 g 39.2 kg/m2 170.18 cm Clarice Roberts [place] - [facility] 03/28/2024 10:24:20 Social History None recorded. Functional Status None recorded. Mental Status None recorded. Family History Nothing Reported. Medical History No medical history recorded. Gynecological HistoryNo gynecological history recorded. Obstetrics History GPAL:G 0 P 0 0 0 0 Past Encounters Encounter ID Performer Location Encounter Start Date Encounter Closed Date Diagnosis/Indication Diagnosis SNOMED-CT Code Diagnosis ICD10 Code Diagnosis Note [id number] RUDY DICKSON PA-C [facility] [address] [address] 03/28/2024 09:30:25 03/28/2024 10:31:51 Sensorineural hearing loss of bilateral ears [id number] H90.3 Audiologic al evaluation results: Right ear: Normal hearing with the exception of a mild SNHL at 3000Hz with excellent word recognitio n. Left ear: Normal hearing with the exception of a mild SNHL at 3000Hz with excellent word recognitio n. Tympanomet ry: Right Ear:Type A Left Ear:Type A Health Concerns Section Related Observation LastModified by Organization Detai ls LastModified Time None Recorded Concern Status LastModified by Organization Details LastModified Time None Recorded Advance Directives Directive None Recorded Payers Insurance Date Sequence Insurance Name Policy Number Policy Soto Covered Member ID Soto Member ID Guarantor Name 03/28/2024 1 [facility] - DOS ON OR AFTER 2022 - ONE CARE (MEDICARE REPLACEMENT/ADV ANTAGE - HMO) Simi Garza [id number] Simi Garza Notes Date Note Type Note [...] and no ear surgeries. JANINE HART MD [address] [place] [address], [place], [address], [facility] - [facility] 03/28/2024 12:42:32 OBGyn Episode No OBEpisode recorded.
[2024-09-02 12:36] LABS: Influenza A PCR NEGATIVE (Negative); Influenza B PCR NEGATIVE (Negative); Resp Syncy Virus RNA Qual PCR NEGATIVE (Negative); SARS COV2 PCR INHOUSE NEGATIVE (Negative)
[2024-09-02] MEDS: 0.9 % Sodium Chloride 1,000 ML 999 ML IV (13:38)
[2024-09-02 15:51] LABS: IDNOW Serial# 58CA691E; Strep A Nucleic Acid Negative (Negative)
[2024-09-02 16:43] LABS: INTERNATIONAL NORM RATIO 0.9 (0.9-1.1); Prothrombin Time 10.2 SEC (10.9-12.4)
[2024-09-02 16:46] LABS: Partial Thromboplastin Time 25.1 SEC (26.0-36.8)
[2024-09-02 16:57] LABS: Troponin-I High Sensitivity 2.7 ng/L (<3.5-17.0)
[2024-09-02 17:29] LABS: Appearance Urine Clear; Color Urine Yellow; Glucose Urine UA >=1000 mg/dL (Negative); Leukocyte Esterase Urine Small (1+) (Negative); Nitrite Urine Negative (Negative); PH 5.5 (5.0-9.0); Specific Gravity - Urine >= 1.030 (1.005-1.025); UMIC TRIGGER UACC YES; Urine Blood Negative (Negative); Urine Ketones Trace mg/dL (Negative); Urine Protein Negative (Neg-Trace)
[2024-09-02 17:51] LABS: Bacteria Urine 2+ (None Seen); Hyaline Casts Urine 0-2 /LPF (0-2); RBC Urine 0-2 /HPF (0-2); UACC Culture Trigger YES; WBC Urine 0-5 /HPF (0-5)
== END 2024-09-02 18:16 | disposition home or self-care (01) ==
PROVIDERS: Physician Assistant; Physician Assistant Medical; Emergency Provider Emergency Medicine; PCP Internal Medicine
DX: R07.89 Other chest pain (principal); R42 Dizziness and giddiness; R06.02 Shortness of breath; R53.83 Other fatigue; I10 Essential (primary) hypertension; E11.9 Type 2 diabetes mellitus without complications; Z03.818 Encounter for observation for suspected exposure to other biological agents ruled out
CPT/HCPCS: 0241U; 36415; 70450; 71046; 80053; 81001; 82550; 83690; 83735; 83880; 84484; 85025; 85610; 85730; 87086; 87651; 93005; 96360; 99284; 99285

== ENCOUNTER → 2024-09-02 11:43 | Outpatient (BNV) | payer OTHER, SELFPAY | PROVIDERS: Emergency Provider Emergency Medicine; PCP Internal Medicine; Visit Provider Radiology Diagnostic Radiology | DX: R42 Dizziness and giddiness (principal); R07.9 Chest pain, unspecified | CPT/HCPCS: 70450; 71046 ==

== ENCOUNTER → 2024-09-02 11:43 | Outpatient (BNV) | payer OTHER, SELFPAY | PROVIDERS: Emergency Provider Emergency Medicine; PCP Internal Medicine; Visit Provider Internal Medicine Cardiovascular Disease | DX: R00.0 Tachycardia, unspecified (principal) | CPT/HCPCS: 93010 ==

== ENCOUNTER → 2024-09-12 07:42 | Outpatient (REF) | payer OTHER, SELFPAY ==
--- NOTE | 2024-09-12 07:44 | CA_ITS ---
Transthoracic Echocardiogram Patient (Last, First, Middle): Simi Garza, Gender: Female Date of : 1965 Age: 59 Procedure Date: 09/12/2024 Procedure Type: Transthoracic Echocardiogram Location: OP Height: 170.18 cm Weight: 97.52 kg BSA: 2.09 m2 Heart Rate: bpm BP: 111 / 67 mmHg Carton Stenciler: PRADIP/REUBEN Referring MD: Mikal Gomez MD Vendor Management Consultant: Prasad Kim MD Symptoms: R06.01 - Orthopnea Study Quality: Fair ECG Rhythm: Sinus Conclusions: - 1. Mildly reduced LV ejection fraction 45-50% with impaired relaxation filling pattern 2. Mildly reduced RV systolic function 3. Normal cardiac valvular Dopplers 4. Normal RV systolic pressure but mildly elevated right atrial pressures Findings Left Ventricle Normal left ventricular cavity size. There is mildly increased left ventricular wall thickness. The left ventricular systolic function is mildly decreased. The visually estimated ejection fraction is between 45-50%. Spectral Doppler is indicative of an impaired relaxation filling pattern. E/E prime ratio is between 8 and 15 consistent with indeterminate filling pressures. Right Ventricle Normal right ventricular cavity size. There is borderline right ventricular systolic function. Atria The left atrium is normal in size. There is lipomatous hypertrophy of the interatrial septum. Interatrial shunt cannot be excluded. The right atrium is normal in size. Aortic Valve The aortic valve structure and function is likely normal. There is no aortic valve stenosis. There is no aortic valve regurgitation. Mitral Valve There is mild anterior and posterior mitral leaflet thickening. There is trace mitral valve regurgitation. There is no mitral valve stenosis. Pulmonic Valve The pulmonic valve is likely normal. Tricuspid Valve Likely normal tricuspid valve structure and function. There is trace tricuspid valve regurgitation. Mildly elevated right atrial pressure. There is no evidence of pulmonary hypertension. Great Vessels All visible segments of the aorta are normal in size. The pulmonary artery was not well visualized. There is no dilatation of the ascending aorta measuring 3.20 cm. Venous The inferior vena cava is normal in size and collapses less than 50% with inspiration. Pericardium/Pleural The pericardium was not well visualized. Prior Study Comparison Changes noted compared to prior study dated: 05/18/2021. LV ejection fraction has reduced Measurements 2D Linear Measurements IVSd: 1.37 0.6-0.9/0.6-1.0 cm LVIDd: 3.47 3.9-5.3/4.2-5.9 cm LVIDd Index: 1.66 2.4-3.2/2.2-3.1 cm/m2 LVIDs: 2.33 2.0-3.6 cm LVPWd: 1.22 0.7-1.1 cm Ao Root: 3.00 2.1-3.5 cm LA Diam: 4.20 2.7-3.8/3.0-4.0 cm LAIDs Index: 2.01 1.5-2.3 cm/m2 LV Mass: 187.99 67-162/88-224 g LV Mass Index: 89.95 43-95/49-115 g/m2 LVOT Diam: 2.00 3.0+(-)1.3 cm 2D Systolic Function EF 4C: 44.40 >55% EF 2C: 46.40 >55% EF BiP: 45.20 >55% Mitral Valve MV Pk E: 0.54 MV PK A: 0.73 MV Decel Time: 204.00 E/A: 0.70 E'Lateral: 6.31 E'Medial: 5.77 E/E' Med: 9.40 E/E' Lat: 8.60 PHT: 60.00 MVA PHT: 3.67 Decel Victoria: 2.67 Aortic Valve AoV Pk Baron: 1.05 AoV Mn Baron: 0.69 AoV VTI: 0.16 AoV Pk Grad: 4.00 Aov Mn Grad: 2.00 NICOL Cont.VTI: 2.74 LVOT LVOT Pk Baron: 0.81 LVOT Mn Baron: 0.53 LVOT VTI: 0.14 LVOT Pk Grad: 3.00 LVOT Mn Grad: 1.00 LVOT Diam: 2.00 LVOT Area: 3.14 Diastolic Function MV Pk E: 0.54 MV Pk A: 0.73 E/A: 0.70 E'Medial: 5.77 E/E' Med: 9.40 E' Laterial: 6.31 E/E' Lat: 8.60 Right Ventricle TAPSE (mm): 16.90 Tricuspid Valve TR Pk Baron: 1.81 TR Pk Grad: 13.00 RA Press: 8.00 RVSP: 21.00 Great Vessels Aorta Ao Root-2D: 3.00 2.0-3.7 cm Ao Asc: 3.20 2.1-3.4 cm Ao Arch: 2.70 Updated in Other Vendor System with Status of Final Prasad Kim MD electronically signed on 09/12/2024 11:56:48 AM with status of Final
--- OUTSIDE RECORDS SUMMARY | 2024-09-12 07:44 | XMS_ITS | Data Portability ---
Author Organization [place] - [facility], Allergy Address [address] [place] [address] Care Team Providers Care Scada Technician Name Role Phone TAMIA HERMAN Referring Provider [phone] Assessment Encounter Date Assessment Date Assessment LastModified [...] Organization Details Recorded Time Deviated nasal septum [id number] Active 2016 Deviated nasal septum; Note: Date Diagnosed: 05/06/2016 9:16 AM (J34.2) Not Available [facility] 4 02:50:30 Allergic rhinitis caused by pollen 58981937 Active 2015 Allergic rhinitis due to pollen; Note: Date Diagnosed: 11/18/2015 10:39 AM (J30.1) Not Available [facility] 4 02:50:33 Allergic rhinitis 66209383 Active 2016 Other allergic rhinitis; Note: Date Diagnosed: 05/06/2016 9:16 AM (J30.89) Jennifer l allergic rhinitis; Note: Date Diagnosed: 11/18/2015 10:39 AM (J30.89) ; Start Date : 11/18/2015 Not Available [facility] 4 02:50:28 Asthma 391188473 Active 2016 Other asthma; Note: Date Diagnosed: 05/06/2016 9:16 AM (J45.998) Not Available [facility] 4 02:50:30 Obstructi ve sleep apnea syndrome 71018179 Active 2016 Obstructiv e sleep apnea (adult) (pediatric ); Note: Date Diagnosed: 05/06/2016 9:16 AM (G47.33) Not Available [facility] 4 02:50:31 Chronic rhinitis 27838464 Active 2015 Chronic rhinitis; Note: Date Diagnosed: 10/23/2015 4:13 PM (J31.0) Not Available [facility] 4 02:50:32 Sensorine ural hearing loss of bilateral ears 189574320 Active 2024 [address]ARESH LINO [address], [address] , [facility] 5 10:08:59 Problem Notes None recorded. Procedures Surgical History Date Name Laterality Status Provider Name and Address Organization Details Recorded Time 03/28/2024 Comp Audio with Tymps - 17276 & 67670 completed NARESH LINO, [address], [address], [facility] 03/28/2024 10:08:52 Imaging Results None recorded. Procedure Notes None recorded. Medical Equipment None Reported. Medications Name Sig Start Date Stop Date Status Note LastModified by Organization Details LastModified Time cyclobenza salo 10 mg tablet 2015 active Medicatio n ID: [id number] Du ration Value: 30 Brand Name: cyclobenz aprine Se nd Method: E-Prescri bed Subs Allowed: subs OK Medica tionGener icName: cyclobenz aprine Not Available Not Available Not Available Qvar 80 mcg/actuat ion Metered Aerosol oral inhaler 2015 active Medicatio n ID: [id number] Du ration Value: 30 Brand Name: Qvar Send Method: E-Prescri bed Subs Allowed: subs OK Specia l Instructi on: TK 1 PUFF PO BID WITH SPACER FOR 30 DAYS Medi cationGen ericName: Qvar Not Available Not Available Not Available gabapentin 600 mg tablet 2015 active Medicatio n ID: [id number] Du ration Value: 30 Brand Name: gabapenti n Send Method: E-Prescri bed Subs Allowed: subs OK Specia l Instructi on: TK 1 T PO TID Medic ationGene ricName: gabapenti n Not Available Not Available Not Available propranolo l 80 mg tablet 2015 active Medicatio n ID: [id number] Br and Name: propranol ol Send Method: [...] nebulizati on 2015 active Medicatio n ID: [id number] Du ration Value: 25 Brand Name: Albuterol [...] mg tablet 2015 active Medicatio n ID: [id number] Du ration Value: 30 Brand Name: butalbita l-acetami nophen-ca ff Send Method: E-Prescri bed Subs Allowed: subs OK Specia l Instructi on: TK 1 T PO QD PRF PAZ Medica tionGener icName: butalbita l-acetami nophen-ca ff Not Available Not Available Not Available Medrol 4 mg tablet 2015 active Medicatio n ID: [id number] Br and Name: Medrol Se nd Method: [...] nasal spray 2015 active Medicatio n ID: [id number] Du ration Value: 30 Brand Name: flunisoli de Send Method: E-Prescri bed Subs Allowed: subs OK Specia l Instructi on: INL ONCE IEN D Medicat ionGeneri cName: flunisoli de Not Available Not Available Not Available paroxetine 20 mg tablet 2015 active Medicatio n ID: [id number] Du ration Value: 30 Brand Name: paroxetin [...] mg tablet 2015 active Medicatio n ID: [id number] Br and Name: Tylenol-C odeine #3 Send [...] mg tablet 2015 active Medicatio n ID: [id number] Du ration Value: 30 Brand Name: oxybutyni [...] mg capsule 2015 active Medicatio n ID: [id number] Br and Name: phentermi ne Send Method: E-Prescri bed Subs Allowed: subs OK Medica tionGener icName: phentermi ne Not Available Not Available Not Available loratadine 10 mg tablet TAKE 1 TABLET BY MOUTH DAILY active Not Available Not Available No t Available risperidon e 0.5 mg tablet 2015 active Medicatio n ID: [id number] Du ration Value: 30 Brand Name: risperido ne Send Method: E-Prescri bed Subs Allowed: subs OK Specia l Instructi on: TK 1 T PO QHS Medic ationGene ricName: risperido ne Not Available Not Available Not Available oxycodone 5 mg tablet 2015 active Medicatio n ID: [id number] Du ration Value: 3 Brand Name: oxycodone [...] mg tablet 2015 active Medicatio n ID: [id number] Du ration Value: 30 Brand Name: Vesicare Send Method: E-Prescri bed Subs Allowed: subs OK Specia l Instructi on: TK 1 T PO D Medicat ionGeneri cName: Vesicare Not Available Not Available Not Available Colace 2015 active Medicatio n ID: [id number] Br and Name: colace Se nd Method: E-Prescri bed Subs Allowed: subs OK Medica tionGener icName: colace Not Available Not Available Not Available naphazolin e 2015 active Medicatio n ID: [id number] Br and Name: naphazoli ne Send Method: E-Prescri bed Subs Allowed: subs OK Medica tionGener icName: naphazoli ne Not Available Not Available Not Available promethazi ne 2015 active Medicatio n ID: [id number] Br and Name: promethaz ine Send Method: E-Prescri bed Subs Allowed: subs OK Medica tionGener icName: promethaz ine Not Available Not Available Not Available Qvar 2015 active Medicatio n ID: [id number] Br and Name: qvar Send Method: E-Prescri bed Subs Allowed: subs OK Medica tionGener icName: qvar Not Available Not Available Not Available Xopenex HFA 45 mcg/actuat ion aerosol inhaler 2015 active Medicatio n ID: [id number] Du ration Value: 15 Brand Name: Xopenex [...] delayed release 2015 active Medicatio n ID: [id number] Du ration Value: 30 Brand Name: Dexilant Send Method: E-Prescri bed Subs Allowed: subs OK Specia l Instructi on: TK 1 C PO QPM AT SUPPER OR HS Medica tionGener icName: Dexilant Not Available Not Available Not Available lidocaine 5 % topical ointment 2015 active Medicatio n ID: [id number] Du ration Value: 15 Brand Name: lidocaine [...] Address Organization Details Last Updated DateTime 03/28/2024 391867.09 g 39.2 kg/m2 170.18 cm Clarice Roberts [...] SNOMED-CT Code Diagnosis ICD10 Code Diagnosis Note [id number] RUDY DICKSON PA-C [facility] [address] [address] 03/28/2024 09:30:25 03/28/2024 10:31:51 Sensorineural hearing loss of bilateral ears [id number] H90.3 Audiologic al evaluation results: Right ear: [...] Soto Member ID Guarantor Name 03/28/2024 1 [facility] - DOS ON OR AFTER 2022 - ONE CARE (MEDICARE REPLACEMENT/ADV ANTAGE - HMO) Simi Garza [id number] Simi Garza Notes Date Note Type Note [...] and no ear surgeries. JANINE HART MD [address] [place] [address], [place], [address], [facility] - [facility] 03/28/2024 12:42:32 OBGyn Episode No OBEpisode recorded.
== END ==
LOC: HO.CARD 07:42
PROVIDERS: PCP Internal Medicine; Visit Provider Internal Medicine Pulmonary Disease
DX: R06.01 Orthopnea (principal)
CPT/HCPCS: 93306

== ENCOUNTER → 2024-09-12 07:44 | Outpatient (BNV) | payer OTHER, SELFPAY | PROVIDERS: PCP Internal Medicine; Visit Provider Internal Medicine Cardiovascular Disease | DX: I51.89 Other ill-defined heart diseases (principal) | CPT/HCPCS: 93306 ==

== ENCOUNTER 2024-09-18 13:01 | Outpatient (AMB) | payer OTHER, SELFPAY ==
--- NOTE | 2024-09-18 13:50 | MHC.OFFVIS ---
Vital Signs 09/18/24 13:51 Height 5 ft 7 in Weight 218 lb BMI 34.1 BP 122/72 Blood Pressure Location Rt brachial Position Sitting Pulse 101 H Pulse Source Pulse Oximeter Pulse Oximetry (%) 98 Oxygen Delivery Method Room Air Intake Visit Reasons: Asthma Adhesive Sprayer Required: Yes Adhesive Sprayer Name: Xiao Owens C.L.M Allergies bee pollen (BEE STINGS) Allergy (Intermediate, Verified 09/18/24 13:55) RASH SWELLING PAIN FULL. phentermine Allergy (Intermediate, Verified 09/18/24 13:55) ANXIETY tramadol Allergy (Intermediate, Verified 09/18/24 13:55) stomach upset adhesive tape (ADHESIVE TAPE) Allergy (Mild, Verified 09/18/24 13:55) RASH oxycodone (OXYCODONE) Adverse Reaction (Intermediate, Verified 09/18/24 13:55) VOMITING acetaminophen (From Percocet) Adverse Reaction (Verified 09/18/24 13:55) Vomiting apremilast (From Otezla) Adverse Reaction (Verified 09/18/24 13:55) diarrhea, nausea HPI HPI Asthma: Details: 59-year-old lady, nonsmoker, with underlying history of lifelong asthma previously controlled on Spiriva, Advair, and albuterol MDI, also with COVID-19 back in March of 2021. Now followed for asthma and environmental allergies. Patient's symptoms are now well controlled on Xolair, Advair, albuterol MDI, and nasal ipratropium. She denies any recent exacerbations. Her orthopnea continuous, she was tried on diuretic with no significant improvement, but instead intravascular volume depletion requiring ER evaluation. Her recent 2D echocardiogram shows reduced ejection fraction. [facility] Medical History (Updated 09/03/24 @ 00:01 by Lily Guajardo) BRCA negative Hx of acute myeloid leukemia in remission Benign paroxysmal positional vertigo Hospital discharge follow-up Abscess Essential hypertension Diabetes mellitus Migraines Hand numbness Mild persistent asthma Impaired glucose tolerance Mild recurrent major depression Herpes simplex type 2 infection Mixed hyperlipidemia Supraventricular tachycardia Left leg pain GERD (gastroesophageal reflux disease) Insomnia Left knee pain Nausea Depression with anxiety Surgical History History of esophagogastroduodenoscopy (EGD) Hx of colonoscopy History of removal of cyst History of surgery History of total abdominal hysterectomy History of cardiac radiofrequency ablation Family History Father Brain cancer Mother Esophageal cancer Sister Breast cancer Paternal Uncle Diabetes Hypertension Sister Colon cancer, Onset Age: 63 Social History Household Members: Children Housing: House Do you presently have visiting nurse or other home services: Yes Alcohol intake: never Patient Tobacco Use Status: Never used Tobacco e-Cigarette/Vaping Use: Never Used Second Hand Smoke Exposure: No Advance Directives Date on File: 03/11/23 service: No Current occupational status: unemployed Sexual orientation: Straight/Heterosexual Gender identity: Female Cognitive needs: No Hearing needs: No Vision needs: No Female Reproductive History Menstrual Age of Menarche: 13 Review of Systems Const Denies daytime sleepiness, Denies excessive sweating, Denies fatigue, Denies fever(s), Denies lethargy, Denies malaise, Denies night sweats, Denies snoring and Denies weight loss Eyes Denies blurry vision and Denies itchy eyes ENT Denies nasal congestion, Denies post nasal drip, Denies sinus pain, Denies sinus pressure and Denies other ( Thrush) Card Denies chest pain, Denies pedal edema, Denies dyspnea, Denies orthopnea and Reports paroxysmal nocturnal dyspnea Resp Denies cough, Denies hemoptysis, Denies excessive phlegm production, Denies dyspnea, Denies snoring and Denies wheezing GI Denies abdominal pain and Denies heartburn Musc Denies myalgias, Denies arthralgias and Denies joint swelling Skin/Breast Denies rash Neuro Denies memory loss and Denies seizure-like activity Psych Denies abnormal sleep pattern, Denies anxiety and Denies memory loss Endo Denies excessive sweating, Denies fatigue and Denies heat intolerance Zak/Lymph Denies easy bruising Aller/Immun Denies itchy eyes, Denies seasonal rhinorrhea and Denies wheezing Physical Exam Vital Signs: Last Vital Signs Pulse 101 H 09/18/24 13:51 BP 122/72 09/18/24 13:51 Pulse Ox 98 09/18/24 13:51 Oxygen Delivery Method Room Air 09/18/24 13:51 BMI result Body Mass Index 34.1 Const General: no acute distress and alert Nutritional Appearance: not obese Orientation/consciousness: Other orientation findings ( oriented) HEENT Head: Yes atraumatic Eyes General: appearance normal, both eyes and all related structures Sclerae: sclerae normal EOM: EOMs intact bilaterally Neck Neck: Yes supple Lymphatic: no lymphadenopathy noted Resp Effort & Inspection: normal respiratory effort and no use of accessory muscles Auscultation: clear to auscultation bilaterally Cardio Rate: regular rate Rhythm: regular rhythm Heart sounds: no gallops, no murmurs and no rubs Skin General skin exam: other ( warm) Extrem General: No clubbing, No cyanosis and No edema Assessment & Plan Assessment & Plan (1) Severe persistent asthma: Code(s): J45.50 - Severe persistent asthma, uncomplicated Category: Medical Plan: Well controlled on current regimen of Advair, Xolair, and albuterol MDI. Continue current regimen. (2) Environmental allergies: Code(s): Z91.09 - Other allergy status, other than to drugs and biological substances Category: Medical Plan: Well controlled on Xolair. Continue current regimen. (3) Orthopnea: Code(s): R06.01 - Orthopnea Category: Medical Plan: Poor response to diuretic. 2D echo with decreased ejection fraction, patient continuous cardiopulmonary follow-up. Will notify Cardiology of new echo findings. Coding Level of Care Code Est Pt Level 4 (12866) Complex EM visit Add On G2211 Diagnoses Severe persistent asthma J45.50 Environmental allergies Z91.09 Orthopnea R06.01
[2024-09-18 13:51] VITALS: BP 122/72; PULSE 101; O2SAT 98; BMI 34.1
--- OUTSIDE RECORDS SUMMARY | 2024-09-18 14:19 | XMS_ITS | Data Portability ---
Author Organization [place] - [facility], Allergy Address [address] [place] [id number] Care Team Providers Care Roping Tender Name Role Phone TAMIA HERMAN Referring Provider [...] Organization Details Recorded Time Deviated nasal septum 301994018 Active 2016 Deviated nasal septum; Note: Date Diagnosed: 05/06/2016 9:16 AM (J34.2) Not Available [facility] 4 02:50:30 Allergic rhinitis caused by pollen 17955850 Active 2015 Allergic rhinitis due to pollen; Note: Date Diagnosed: 11/18/2015 10:39 AM (J30.1) Not Available [facility] 4 02:50:33 Allergic rhinitis 59658232 Active 2016 Other allergic rhinitis; Note: Date Diagnosed: 05/06/2016 9:16 AM (J30.89) Jennifer l allergic rhinitis; Note: Date Diagnosed: 11/18/2015 10:39 AM (J30.89) ; Start Date : 11/18/2015 Not Available [facility] 4 02:50:28 Asthma 148797373 Active 2016 Other asthma; Note: Date Diagnosed: 05/06/2016 9:16 AM (J45.998) Not Available [facility] 4 02:50:30 Obstructi ve sleep apnea syndrome 72170977 Active 2016 Obstructiv e sleep apnea (adult) (pediatric ); Note: Date Diagnosed: 05/06/2016 9:16 AM (G47.33) Not Available [facility] 4 02:50:31 Chronic rhinitis 26680993 Active 2015 Chronic rhinitis; Note: Date Diagnosed: 10/23/2015 4:13 PM (J31.0) Not Available [facility] 4 02:50:32 Sensorine ural hearing loss of bilateral ears 549093609 Active 2024 NARESH LINO [address], [address] , [facility] 5 10:08:59 Problem Notes None recorded. Procedures Surgical History Date Name Laterality Status Provider Name and Address Organization Details Recorded Time 03/28/2024 Comp Audio with Tymps - 52202 & 90874 completed NARESH LINO, [address], [address], [facility] 03/28/2024 10:08:52 Imaging Results None recorded. Procedure Notes None recorded. Medical Equipment None Reported. Medications Name Sig Start Date Stop Date Status Note LastModified by Organization Details LastModified Time cyclobenza salo 10 mg tablet 2015 active Medicatio n ID: [id number] Du ration Value: 30 Brand Name: cyclobenz aprine Se nd Method: E-Prescri bed Subs Allowed: subs OK Medica tionGener icName: cyclobenz aprine Not Available Not Available Not Available Qvar 80 mcg/actuat ion Metered Aerosol oral inhaler 2015 active Medicatio n ID: [id number] Du ration Value: 30 Brand Name: Qvar Send Method: E-Prescri bed Subs Allowed: subs OK Specia l Instructi on: TK 1 PUFF PO BID WITH SPACER FOR 30 DAYS Medi cationGen ericName: Qvar Not Available Not Available Not Available gabapentin 600 mg tablet 2015 active Medicatio n ID: [id number] Du ration Value: 30 Brand Name: gabapenti n Send Method: E-Prescri bed Subs Allowed: subs OK Specia l Instructi on: TK 1 T PO TID Medic ationGene ricName: gabapenti n Not Available Not Available Not Available propranolo l 80 mg tablet 2015 active Medicatio n ID: [id number] Br and Name: propranol ol Send Method: [...] nebulizati on 2015 active Medicatio n ID: [id number] Du ration Value: 25 Brand Name: Albuterol [...] mg tablet 2015 active Medicatio n ID: [id number] Du ration Value: 30 Brand Name: butalbita l-acetami nophen-ca ff Send Method: E-Prescri bed Subs Allowed: subs OK Specia l Instructi on: TK 1 T PO QD PRF PAZ Medica tionGener icName: butalbita l-acetami nophen-ca ff Not Available Not Available Not Available Medrol 4 mg tablet 2015 active Medicatio n ID: [id number] Br and Name: Medrol Se nd Method: [...] nasal spray 2015 active Medicatio n ID: [id number] Du ration Value: 30 Brand Name: flunisoli de Send Method: E-Prescri bed Subs Allowed: subs OK Specia l Instructi on: INL ONCE IEN D Medicat ionGeneri cName: flunisoli de Not Available Not Available Not Available paroxetine 20 mg tablet 2015 active Medicatio n ID: [id number] Du ration Value: 30 Brand Name: paroxetin [...] mg tablet 2015 active Medicatio n ID: [id number] Br and Name: Tylenol-C odeine #3 Send [...] mg tablet 2015 active Medicatio n ID: [id number] Du ration Value: 30 Brand Name: oxybutyni [...] mg capsule 2015 active Medicatio n ID: [id number] Br and Name: phentermi ne Send Method: E-Prescri bed Subs Allowed: subs OK Medica tionGener icName: phentermi ne Not Available Not Available Not Available loratadine 10 mg tablet TAKE 1 TABLET BY MOUTH DAILY active Not Available Not Available No t Available risperidon e 0.5 mg tablet 2015 active Medicatio n ID: [id number] Du ration Value: 30 Brand Name: risperido ne Send Method: E-Prescri bed Subs Allowed: subs OK Specia l Instructi on: TK 1 T PO QHS Medic ationGene ricName: risperido ne Not Available Not Available Not Available oxycodone 5 mg tablet 2015 active Medicatio n ID: [id number] Du ration Value: 3 Brand Name: oxycodone [...] mg tablet 2015 active Medicatio n ID: [id number] Du ration Value: 30 Brand Name: Vesicare Send Method: E-Prescri bed Subs Allowed: subs OK Specia l Instructi on: TK 1 T PO D Medicat ionGeneri cName: Vesicare Not Available Not Available Not Available Colace 2015 active Medicatio n ID: [id number] Br and Name: colace Se nd Method: E-Prescri bed Subs Allowed: subs OK Medica tionGener icName: colace Not Available Not Available Not Available naphazolin e 2015 active Medicatio n ID: [id number] Br and Name: naphazoli ne Send Method: E-Prescri bed Subs Allowed: subs OK Medica tionGener icName: naphazoli ne Not Available Not Available Not Available promethazi ne 2015 active Medicatio n ID: [id number] Br and Name: promethaz ine Send Method: E-Prescri bed Subs Allowed: subs OK Medica tionGener icName: promethaz ine Not Available Not Available Not Available Qvar 2015 active Medicatio n ID: [id number] Br and Name: qvar Send Method: E-Prescri bed Subs Allowed: subs OK Medica tionGener icName: qvar Not Available Not Available Not Available Xopenex HFA 45 mcg/actuat ion aerosol inhaler 2015 active Medicatio n ID: [id number] Du ration Value: 15 Brand Name: Xopenex [...] delayed release 2015 active Medicatio n ID: [id number] Du ration Value: 30 Brand Name: Dexilant Send Method: E-Prescri bed Subs Allowed: subs OK Specia l Instructi on: TK 1 C PO QPM AT SUPPER OR HS Medica tionGener icName: Dexilant Not Available Not Available Not Available lidocaine 5 % topical ointment 2015 active Medicatio n ID: [id number] Du ration Value: 15 Brand Name: lidocaine [...] Address Organization Details Last Updated DateTime 03/28/2024 805029.09 g 39.2 kg/m2 170.18 cm Clarice Roberts [place] - [facility] 03/28/2024 10:24:20 Social History None recorded. Functional Status None recorded. Mental Status None recorded. Family History Nothing Reported. Medical History No medical history recorded. Gynecological HistoryNo gynecological history recorded. Obstetrics History GPAL:G 0 P 0 0 0 0 Past Encounters Encounter ID Performer Location Encounter Start Date Encounter Closed Date Diagnosis/Indication Diagnosis SNOMED-CT Code Diagnosis ICD10 Code Diagnosis Note [id number] RUDY DICKSON PA-C [facility] [address] [phone] 03/28/2024 09:30:25 03/28/2024 10:31:51 Sensorineural hearing loss of bilateral ears [id number] H90.3 Audiologic al evaluation results: Right ear: [...] Soto Member ID Guarantor Name 03/28/2024 1 [facility] - DOS ON OR AFTER 2022 - ONE C[employer] (MEDICARE REPLACEMENT/ADV ANTAGE - HMO) Simi Garza [id number] Simi Garza Notes Date Note Type Note [...] and no ear surgeries. JANINE HART MD [address] [place] [address], [place], [address], [facility] - [facility] 03/28/2024 12:42:32 OBGyn Episode No OBEpisode recorded.
== END 2024-09-18 14:10 | disposition home or self-care (01) ==
LOC: HO.HPS 13:02
PROVIDERS: PCP Internal Medicine; Visit Provider Internal Medicine Pulmonary Disease
DX: J45.50 Severe persistent asthma, uncomplicated (principal); Z91.09 Other allergy status, other than to drugs and biological substances; R06.01 Orthopnea
CPT/HCPCS: 99214; G2211

== ENCOUNTER → 2024-09-18 13:01 | Outpatient (BNVA) | payer OTHER, SELFPAY | PROVIDERS: PCP Internal Medicine; Visit Provider Internal Medicine Pulmonary Disease | DX: J45.50 Severe persistent asthma, uncomplicated (principal); Z91.09 Other allergy status, other than to drugs and biological substances; R06.01 Orthopnea | CPT/HCPCS: 99212 ==

== ENCOUNTER 2024-09-19 09:23 | Emergency (ER) | payer OTHER, SELFPAY ==
--- NOTE | ~2024-09-19 | XR_ITS ---
EXAMINATION: XR CHEST CLINICAL INFORMATION: sob COMPARISON: 09/02/2024, 05/07/2024. TECHNIQUE: Frontal view of the chest was obtained. FINDINGS: Mild elevation of the right hemidiaphragm, unchanged. The cardiac, hilar, and mediastinal contours are normal. The lungs are clear bilaterally. No pneumothorax or effusion. No focal osseous or soft tissue abnormality. XR/XR chest 1V IMPRESSION: No active pulmonary disease. Electronically signed by: Kyle Rocha MD 09/19/2024 09:57 AM EDT
[2024-09-19 09:26] VITALS: BP 138/96; PULSE 115; RESP 18; TEMP 36.9; O2SAT 98; BMI 33.7
--- NOTE | 2024-09-19 09:30 | ECG_ITS ---
Test Reason : sob Blood Pressure : */* mmHG Vent. Rate : 100 BPM Atrial Rate : 100 BPM P-R Int : 140 ms QRS Dur : 92 ms QT Int : 368 ms P-R-T Axes : 53 -4 7 degrees QTcB Int : 474 ms Normal sinus rhythm Normal ECG When compared with ECG of 02-Sep-2024 11:48, No significant change was found Referred By: Generic ED Physician Electronically Signed By: DAVID VILLA
[2024-09-19 09:57] VITALS: PULSE 103; RESP 24; O2SAT 98
[2024-09-19 10:06] LABS: MANUAL DIFF FLAG NO
[2024-09-19 10:10] LABS: Hematocrit 44.8 % (37.0-47.0); Hemoglobin 16.1 g/dl (12.0-16.0); Imm Gran Abs Auto 0.03 X10*3/uL (0.00-0.03); Imm Gran Pct Auto 0.6 % (0.0-0.4); Lymphocytes Absolute Auto 2.3 X10*3/uL (1.2-4.9); Mean Corpuscular HGB Conc 35.9 g/dl (31.0-35.0); Mean Corpuscular Hemoglobin 30.1 pg (27.0-33.0); Mean Corpuscular Volume 83.7 fL (80.0-98.0); NRBC Abs Auto 0.000 X10*3/uL (0.0-0.012); NRBC Pct Auto 0.0 /100WBC (0.0-0.2); Platelet Count 242 X10*3/uL (160-400); Red Blood Count 5.35 X10*6/uL (4.20-5.50); White Blood Count 5.4 X10*3/uL (4.8-10.8)
[2024-09-19 10:25] LABS: Alanine Aminotransferase 40 U/L (0-31); Albumin Level 4.5 g/dL (3.5-5.0); Alkaline Phosphatase 80 U/L (39-117); Anion Gap 14 (12-20); Aspartate Amino Transferase 29 U/L (5-31); Blood Urea Nitrogen 16 mg/dL (9-16); Calcium 10.5 mg/dL (8.4-10.2); Carbon Dioxide 18 mmol/L (22-29); Chloride 110 mmol/L (96-108); Creatinine Clr Calc Pharmacy 106.5; Estimated Glomerular Filt Rate > 60; Potassium 3.4 mmol/L (3.3-5.1); Sodium 139 mmol/L (135-145); Total Protein 7.1 g/dL (6.5-8.0)
[2024-09-19 10:32] LABS: Troponin-I High Sensitivity 3.3 ng/L (<3.5-17.0)
--- NOTE | 2024-09-19 10:34 | ED_ITS ---
HPI - SOB/Dyspnea General Chief Complaint: Dyspnea Stated Complaint: difficult breathing Time Seen by Provider: 09/19/24 10:33 Source: patient Mode of arrival: ambulatory Limitations: language barrier History of Present Illness ED Provider: Shara Sunshine PA-C HPI Narrative: 59-year-old female with history significant for lifelong asthma controlled on Spiriva, Advair and albuterol PRN reports to the emergency department today for evaluation of exercise intolerance and lightheadedness for the last week but basically been going on for the last 3 weeks with fatigue. She was diagnosed 3 weeks ago with pneumonia and treated an outpatient basis. She denies wheezing and air hunger. Patient's saw her cash register operator yesterday who reassured her that her lungs sound good and it most likely was a cardiac issue he was able to speak to heddler tier and she has an appointment tomorrow but patient did not want to wait and came here. She is denying feeling dizzy despite triage reporting this but this was verified with the robotics systems engineer. She has not had any fevers or chills she denies having a cough she has no abdominal discomfort no nausea no vomiting and no diarrhea. She denies any orthopnea, but does have VALDEZ, uses CPAP compliance is not clear. No CP or current SOB. She states that she is eating she is tolerating p.o. fluids and voiding regularly she just feels generalized weakness. she denies any falls or trauma and no headache. yesterday when she went to stand up and walk to another room that is when she felt sort of lightheaded but did not syncopized. This is not new for her. The cash register operator told her that the heddler tier would work her up more patient is hoping that the heddler tier would see her today if she came to the emergency department. cash register operator note was reviewed from Dr. Gomez that saw patient yesterday. noted in her chart that patient has had continuous orthopnea and tried a diuretic with no improvement she also had a recent 2dEcho on 09/12/24 that showed reduced ejection fraction: Conclusions: - 1. Mildly reduced LV ejection fraction 45-50% with impaired relaxation filling pattern 2. Mildly reduced RV systolic function 3. Normal cardiac valvular Dopplers 4. Normal RV systolic pressure but mildly elevated right atrial pressures Related Data Home Medications ?Medication ?Instructions ?Recorded ?Confirmed lorazepam 1 mg tablet 1 mg PO TID PRN Anxiety 12/0 9/20 07/17/25 zolpidem 10 mg tablet 10 mg PO BEDTIME PRN Insomni a 02/13/20 09/20/24 fluticasone propionate 115 2 puff PO BID 05/06/2109/04 mcg-salmeterol 21 mcg/actuation HFA inhaler (Advair HFA) loratadine 10 mg tablet 10 mg PO DAILY PRN Allergy S ymptoms 08/09/22 09/20/24 paroxetine HCl 10 mg tablet 10 mg PO QAM 08/09/2209/04 triamcinolone acetonide 0.1 % topical 06/20/23 5 topical ointment paroxetine HCl 40 mg tablet 20 mg PO DAILY 06/30/23 clobetasol 0.05 % topical ointment 1 appl topical BID 07/03/24 09/20/24 ixekizumab 80 mg/mL subcutaneous mg subcut 07/03/24 auto-injector ([employer] Autoinjector (3 Pack)) Previous Rx's ?Medication ?Instructions ?Recorded nebulizers (Aeroneb Go Nebulizer) #1 ea 02/05/21 ipratropium bromide 42 mcg (0.06 2 spray intranasal TI D-QID PRN 07/09/22 %) nasal spray allergy symptoms 30 days #15 mL blood sugar diagnostic (OneTouch #100 ea 12/23/22 Ultra Test strips) blood-glucose meter (OneTouch #1 ea 12/23/22 Ultra2 Meter) lancets 30 gauge (OneTouch #100 ea 12/23/22 UltraSoft 2 Lancet) omalizumab 150 mg subcutaneous 300 mg subcut Q4W 28 da ys #1 ea 06/16/23 solution (Xolair) metoprolol succinate 50 mg 50 mg PO DAILY #90 tabs tablet,extended release 24 hr esomeprazole magnesium 40 mg 40 mg PO DAILY #30 ea granules delayed release for susp linaclotide 72 mcg capsule 72 mcg PO DAILY #30 caps ondansetron 4 mg disintegrating 4 mg PO Q8H PRN for tablet nausea/vomiting #10 tabs diclofenac sodium 1 % topical gel 2 g topical QID 30 d ays #100 grams 06/26/24 (Arthritis Pain (diclofenac)) aspirin 81 mg tablet,delayed 81 mg PO DAILY 90 days #9 0 tabs 08/19/24 release (Adult Aspirin Regimen) empagliflozin 10 mg tablet 10 mg PO DAILY 90 days #90 tabs 08/24/24 (Jardiance) polyethylene glycol 3350 17 17 g PO DAILY #510 grams 0 09/05/24 gram/dose oral powder fenofibrate 54 mg tablet 54 mg PO DAILY #90 tabs 09/28 rosuvastatin 40 mg tablet 40 mg PO DAILY 90 days #90 t abs 09/10/24 tirzepatide 10 mg/0.5 mL 10 mg (0.5 mL) subcut QWEEK 4 09/12/24 subcutaneous pen injector weeks #2 mL (Mounjaro) amlodipine 2.5 mg tablet 2.5 mg PO DAILY #30 tabs Allergies Allergy/AdvReac Type Severity Reaction Status Date / Time bee pollen (BEE STINGS) Allergy Intermediate RASH Verified 09/20/24 15:26 SWELLING PAIN FULL. phentermine Allergy Intermediate ANXIETY Verified 09/20/24 14:10 tramadol Allergy Intermediate stomach Verified 09/20/24 15:26 upset adhesive tape (ADHESIVE TAPE) Allergy Mild RASH Verified 09/20/24 15:26 oxycodone (OXYCODONE) AdvReac Intermediate VOMITING Verified 09/20/24 15:26 acetaminophen (From Percocet) AdvReac Vomiting Verified 09/20/24 15:26 apremilast (From Otezla) AdvReac diarrhea, Verified 09/20/24 14:10 nausea Review of Systems 2 Review of Systems: Yes all other systems are reviewed and are negative [facility] Past Medical History Attestation statement: The following information was validated with the patient. Source: old records reviewed and nursing notes reviewed Medical History BRCA negative Hx of acute myeloid leukemia in remission Benign paroxysmal positional vertigo Hospital discharge follow-up Abscess Essential hypertension Diabetes mellitus Migraines Hand numbness Mild persistent asthma Impaired glucose tolerance Mild recurrent major depression Herpes simplex type 2 infection Mixed hyperlipidemia Supraventricular tachycardia Left leg pain GERD (gastroesophageal reflux disease) Insomnia Left knee pain Nausea Depression with anxiety Surgical History History of esophagogastroduodenoscopy (EGD) Hx of colonoscopy History of removal of cyst History of surgery History of total abdominal hysterectomy History of cardiac radiofrequency ablation Family History Family History Father Brain cancer Mother Esophageal cancer Sister Breast cancer Paternal Uncle Diabetes Hypertension Sister Colon cancer, Onset Age: 63 Social History Social History Household Members: Children Housing: House Do you presently have visiting nurse or other home services: Yes Alcohol intake: never Patient Tobacco Use Status: Never used Tobacco e-Cigarette/Vaping Use: Never Used Second Hand Smoke Exposure: No Advance Directives Date on File: 03/11/23 service: No Current occupational status: unemployed Sexual orientation: Straight/Heterosexual Gender identity: Female Cognitive needs: No Hearing needs: No Vision needs: No Physical Exam 2 Vital Signs: Vital Signs: Last Vital Signs Temp 0 F L 09/19/24 11:40 Pulse 85 09/19/24 11:40 Resp 17 09/19/24 11:40 BP 128/84 09/19/24 11:40 Pulse Ox 97 09/19/24 11:40 O2 Del Method Room Air 09/19/24 11:40 BMI result Body Mass Index 33.7 Const: General: cooperative, comfortable, no acute distress, well developed, alert and awake Nutritional Appearance: obese Orientation/consciousness: p atient oriented x3 Limitations: language barrier HEENT: Head: Yes normal to inspection and Yes No palpable skull fracture present Ears: hearing grossly normal bilaterally General nose exam: Normal external nose present Face and sinus: Yes normal facial exam Mouth: Normal oral and palatal mucosa present, tongue normal, oropharynx normal and moist mucous membranes Throat: Yes posterior oropharynx normal Eyes: General: appearance normal, both eyes and all related structures P eriorbital: periorbital findings normal Eyelids: Yes eyelids normal C onjunctivae: conjunctivae normal Sclerae: sclerae normal Corneas: corneas normal Pupils: Equal, round and reactive pupils present EOM: EOMs intact bilaterally Neck: Neck: Yes normal visual inspection, Yes full ROM and Yes no lymphadenopathy Carotids: normal carotid upstroke Lymphatic: no lymphadenopathy noted Chest: Chest palpation & inspection: normal inspection of the chest and normal palpation of entire chest wall Neuro: General: patient oriented x3 Cranial nerves: Yes Equal, round and reactive pupils present Medical Decision Making Medical Decision Making [facility] Narrative: 59 y/o F here for evaluation of sob. PMH sig for new DX of HF, asthma, HTN, and GERD. She denies infectious sxs and chest pain. Upon arrival to ED she is afebrile and well appearing, saturating 98 % on RA. Formal inperson online community manager utilized. Saw cash register operator yesterday, has cardiology appt tomorrow. Given CC, cardiac work up was initiated. DDX as below. Will keep on balance clerk in the interim. SHe does not appear fluid overloaded on exam, is hydrated with lungs that are CTAB. No current sob/ CP. Lab work reassuring, ACS can be ruled out. BNP normal, no acute CHF. CXR clear. NO hepatobiliary dysfunction. She was ambulated with oxygen maintaining 98% on RA and did not become tachypneic or c/o sob/cp. Dx likely related to exercise intolerance secondary to cardiomyopathy. Given not currently sxs will d/c to home cher in setting of knowing she has direct cardiology appt tomorrow. Discussed expectant management with her. If anything changes in interim she will return to ED. She was d/c to home stable. Differential Diagnosis Differential Diagnoses: The differential diagnosis associated with the presentation includes CHF PE angina physical deconditioning Afib/Aflutter serous OM viral URI asthma Admission/Observation Consideration of admission/observation: Escalation of care including admission/observation considered Lab Data [facility] Lab Attestation statement: I reviewed the patient's lab results. 09/19/24 10:02 09/19/24 10:02 Labs: Lab Results 09/19/24 Range/Units 10:02 WBC 5.4 (4.8-10.8) X10*3/uL RBC 5.35 (4.20-5.50) X10*6/uL Hgb 16.1 H (12.0-16.0) g/dl Hct 44.8 (37.0-47.0) % MCV 83.7 (80.0-98.0) fL MCH 30.1 (27.0-33.0) pg MCHC 35.9 H (31.0-35.0) g/dl RDW 14.5 (11.0-16.0) % Plt Count 242 (160-400) X10*3/uL MPV 8.5 L (9.4-12.3) fL Immature Gran % (Auto) 0.6 H (0.0-0.4) % Neut % (Auto) 43.9 L (45-73) % Lymph % (Auto) 42.4 H (20-40) % Treasure % (Auto) 11.0 (2-11) % Eos % (Auto) 1.5 (0-4) % Baso % (Auto) 0.6 (0-2) % Lymph # (Auto) 2.3 (1.2-4.9) X10*3/uL Treasure # (Auto) 0.6 (0.1-1.2) X10*3/uL Eos # (Auto) 0.1 (0.0-0.4) X10*3/uL Baso # (Auto) 0.0 (0.0-0.2) X10*3/uL Abs Immat Gran (auto) 0.03 (0.00-0.03) X10*3/uL Absolute Neuts (auto) 2.4 (2.0-8.3) x10*3/uL Absolute Nucleated RBC 0.000 (0.0-0.012) X10*3/uL Nucleated RBC % (auto) 0.0 (0.0-0.2) /100WBC Sodium 139 (135-145) mmol/L Potassium 3.4 (3.3-5.1) mmol/L Chloride 110 H (96-108) mmol/L Carbon Dioxide 18 L (22-29) mmol/L Anion Gap 14 (12-20) BUN 16 (9-16) mg/dL Creatinine 0.69 (0.5-1.4) mg/dL Estim Creat Clear Calc 106.5 Estimated GFR > 60 Random Glucose 182 H (60-115) mg/dL Calcium 10.5 H D (8.4-10.2) mg/dL Total Bilirubin 0.9 (0.0-1.0) mg/dL Direct Bilirubin 0.2 (0.0-0.5) mg/dL AST 29 (5-31) U/L ALT 40 H (0-31) U/L Alkaline Phosphatase 80 (39-117) U/L Troponin I High Sens 3.3 (<3.5-17.0) ng/L Total Protein 7.1 (6.5-8.0) g/dL Albumin 4.5 (3.5-5.0) g/dL Independent Interpretation I performed an independent interpretation of an: EKG and Plain X-Ray Interpretation: 80 bpm, no malignant arrhythmia or ischemia noted, NSR; CXR: no acute findings. Radiology Impression Discussion of test interpretation with radiology: I have reviewed the radiologist's reading. Radiologist Impression: No acute pulmonary findings. External Record Review External record reviewed: Outpatient record and Primary care record Chronic Conditions Patient?s care impacted by: Hypertension and Other (Obesity) Social Determinants Patient?s care significantly limited by Social Determinants of Health including: Other Social Determinant of Health Discharge Plan Discharge Clinical Impression: Weakness, Exertional shortness of breath Heart failure Qualifiers: Heart failure type: unspecified Heart failure chronicity: unspecified Qualified Code(s): I50.9 - Heart failure, unspecified Patient Disposition: Home, Self-Care Instructions: Weakness (ED), Fluid Restriction (ED) Additional Instructions: You were seen in the emergency department today due to your weakness and progressive orthopnea. You already saw your cash register operator yesterday who wanted you to see your heddler tier this appointment is tomorrow. You had a recent echocardiogram done a week ago that showed reduced heart function but stable. you had labs done today that showed no acute inflammation or infection. You also had a chest x-ray that does not show any fluid in your lungs enlarged heart or other cardiopulmonary abnormality. Your pulses today are equal and symmetric your vitals are reassuring your not hypoxic your lungs are clear you are not currently in an asthma exacerbation or have any pneumonia. Your EKG was reassuring. No life-threatening etiology was identified today please keep your cardiology appointment tomorrow to further address your weakness and exertional fatigue Should you develop any chest pain or acute shortness of breath worsening symptoms please return to the emergency department. per the rest of the day stay hydrated and relax. change positions slowly. Prescriptions: No Action (DME) Aeroneb Go Nebulizer Misc See Rx Instructions .Route Qty: 1 0RF Rx Instructions: As directed (DME) blood-glucose meter [[employer] Ultra2 Meter] Mis See Rx Instructions .Route Qty: 1 0RF Rx Instructions: As directed (DME) OneTouch Ultra Test Strip See Rx Instructions .Route Qty: 100 3RF Rx Instructions: Use 1 test strip once a day (DME) lancets [OneTouch UltraSoft 2 Lancet] 30 gauge misc See Rx Instructions .Route Qty: 100 3RF Rx Instructions: Use 1 lancet once a day Xolair 150 mg recon soln 300 mg subcut Q4W 28 Days Qty: 1 12RF Rx Instructions: requires multiple injection sites; do not exceed 150 mg per injection site ondansetron 4 mg tablet,disintegrating 4 mg PO Q8H PRN (Reason: for nausea/vomiting) Qty: 10 0RF aspirin [Adult Aspirin Regimen] 81 mg tablet,delayed release (DR/EC) 81 mg PO DAILY 90 Days Qty: 90 0RF Jardiance 10 mg tablet 10 mg PO DAILY 90 Days Qty: 90 0RF polyethylene glycol 3350 17 gram/dose powder 17 g PO DAILY Qty: 510 0RF fenofibrate 54 mg tablet 54 mg PO DAILY Qty: 90 0RF rosuvastatin 40 mg tablet 40 mg PO DAILY 90 Days Qty: 90 1RF Mounjaro 10 mg/0.5 mL pen injector 10 mg subcut QWEEK 28 Days Qty: 2 0RF paroxetine HCl 40 mg tablet 20 mg PO DAILY lorazepam 1 mg tablet 1 mg PO TID PRN (Reason: Anxiety) zolpidem 10 mg tablet 10 mg PO BEDTIME PRN (Reason: Insomnia) Advair HFA 115-21 mcg/actuation HFA aerosol inhaler 2 puff PO BID triamcinolone acetonide 0.1 % ointment topical paroxetine HCl 10 mg tablet 10 mg PO QAM loratadine 10 mg tablet 10 mg PO DAILY PRN (Reason: Allergy Symptoms) ipratropium bromide 42 mcg (0.06 %) spray,non-aerosol 2 spray intranasal TID-QID PRN (Reason: allergy symptoms) 30 Days Qty: 15 6RF Rx Instructions: administer into each nostril metoprolol succinate 50 mg tablet extended release 24 hr 50 mg PO DAILY Qty: 90 3RF Rx Instructions: dose increased linaclotide 72 mcg capsule 72 mcg PO DAILY Qty: 30 3RF esomeprazole magnesium [address] for susp in packet 40 mg PO DAILY Qty: 30 2RF diclofenac sodium [Arthritis Pain (diclofenac)] 1 % gel 2 g topical QID 30 Days Qty: 100 1RF Rx Instructions: apply to single elbow, wrist or hand; for hand includes palm/fingers/back of hand clobetasol 0.05 % ointment 1 appl topical BID [employer] Autoinjector (3 Pack) 80 mg/mL auto-injector subcut amlodipine 2.5 mg tablet 2.5 mg PO DAILY Qty: 30 1RF Rx Instructions: new Referrals: [facility] [Provider Group] Referral Note: Has follow up appt there tomorrow Interventions: ED Discharge Assessment Last Done: 09/19/24 11:40 Discharge Date/Time: 09/19/24 11:44 Print Language: Citizen [place]
[2024-09-19 11:40] VITALS: BP 128/84; PULSE 85; RESP 17; TEMP -17.7; TEMP 0; O2SAT 97
== END 2024-09-19 11:44 | disposition home or self-care (01) ==
PROVIDERS: Emergency Provider Emergency Medicine; PCP Internal Medicine
DX: I50.9 Heart failure, unspecified (principal); R06.02 Shortness of breath; R53.1 Weakness; R42 Dizziness and giddiness; Z79.899 Other long term (current) drug therapy
CPT/HCPCS: 36415; 71045; 80048; 80076; 84484; 85025; 93005; 99283; 99284

== ENCOUNTER → 2024-09-19 09:30 | Outpatient (BNV) | payer OTHER, SELFPAY | PROVIDERS: Emergency Provider Emergency Medicine; PCP Internal Medicine; Visit Provider Internal Medicine | DX: R06.02 Shortness of breath (principal) | CPT/HCPCS: 93010 ==

== ENCOUNTER → 2024-09-19 09:30 | Outpatient (BNV) | payer OTHER, SELFPAY | PROVIDERS: PCP Internal Medicine; Visit Provider Radiology Diagnostic Radiology | DX: R06.02 Shortness of breath (principal) | CPT/HCPCS: 71045 ==

== ENCOUNTER 2024-09-20 13:39 | Outpatient (AMB) | payer OTHER, SELFPAY ==
[2024-09-20 14:07] VITALS: BP 124/82; PULSE 106; BMI 33.5
--- NOTE | 2024-09-20 14:07 | A.OFFVIS_ITS ---
Vital Signs 09/20/24 14:07 Height 5 ft 7 in Weight 213 lb 13.574 oz BMI 33.5 BP 124/82 Blood Pressure Location Lt brachial Position Sitting Pulse 106 H Pulse Source Pulse Oximeter Intake Visit Reasons: r/s 09/24/24 followp after testing Display Director Required: Yes Display Director Language: Quantitative Analyst Marketing Name: voice [phone] alyssa Allergies bee pollen (BEE STINGS) Allergy (Intermediate, Verified 09/20/24 15:26) RASH SWELLING PAIN FULL. phentermine Allergy (Intermediate, Verified 09/20/24 14:10) ANXIETY tramadol Allergy (Intermediate, Verified 09/20/24 15:26) stomach upset adhesive tape (ADHESIVE TAPE) Allergy (Mild, Verified 09/20/24 15:26) RASH oxycodone (OXYCODONE) Adverse Reaction (Intermediate, Verified 09/20/24 15:26) VOMITING acetaminophen (From Percocet) Adverse Reaction (Verified 09/20/24 15:26) Vomiting apremilast (From Otezla) Adverse Reaction (Verified 09/20/24 14:10) diarrhea, nausea Medication List - Last Reconciled 09/20/24 by Mary Gardner NP-C aspirin (Adult Aspirin Regimen) 81 mg PO DAILY 90 days blood sugar diagnostic (KeraNetics Ultra Test strips) Use 1 test strip once a day blood-glucose meter (Nandi Proteinsuch Ultra2 Meter) As directed clobetasol 0.05% 1 appl topical BID diclofenac sodium 1% (Arthritis Pain (diclofenac)) 2 grams topical QID 30 days empagliflozin (Jardiance) 10 mg PO DAILY [address] 40 mg PO DAILY fenofibrate 54 mg PO DAILY fluticasone propion-salmeterol 115-21 mcg/actuation (Advair HFA) 2 puffs PO BID ipratropium bromide 2 sprays intranasal TID-QID PRN 30 days ixekizumab (Taltz Autoinjector (3 Pack)) mg subcut lancets (Nandi Proteinsuch UltraSoft 2 Lancet) Use 1 lancet once a day linaclotide 72 mcg PO DAILY loratadine 10 mg PO DAILY PRN lorazepam 1 mg PO TID PRN metoprolol succinate ER 50 mg PO DAILY nebulizers (Aeroneb Go Nebulizer) As directed omalizumab (Xolair) 300 mg subcut Q4W 28 days ondansetron 4 mg PO Q8H PRN paroxetine HCl 20 mg PO DAILY paroxetine HCl 10 mg PO QAM polyethylene glycol 3350 17 grams PO DAILY rosuvastatin 40 mg PO DAILY 90 days tirzepatide (Mounjaro) 10 mg (0.5 mL) subcut QWEEK 4 weeks triamcinolone acetonide 0.1% topical zolpidem 10 mg PO BEDTIME PRN HPI HPI r/s 09/24/24 followp after testing: Details: Simi is a 59-year-old female past medical history of hypertension, hyperlipidemia, diabetes, obesity, asthma, SVT who recently had echocardiogram showing EF 45-50% and mildly reduced RV systolic function. She reported increased shortness of breath and had ED evaluation yesterday without acute findings. She now presents for follow-up. Today she reports that for the last month she has been noticing increasing shortness of breath and new chest tightness with physical activity. She says this symptom is worsening with time. She is not having concerning symptoms at rest. She is known to have chronic shortness of breath with exertion but states this is different. She uses CPAP at night and sleeps with her head of the bed elevated. She has been using more pillows than usual recently. No recent concerning heart palpitations. No sustained rapid or irregular rates. No lightheadedness, presyncope, syncope, falls. Takes meds as directed. Has her sister on the phone from [place]. She is assisting with Russian translation at their request. Both are expressing much concern about her condition. [facility] Medical History BRCA negative Hx of acute myeloid leukemia in remission Benign paroxysmal positional vertigo Hospital discharge follow-up Abscess Essential hypertension Diabetes mellitus Migraines Hand numbness Mild persistent asthma Impaired glucose tolerance Mild recurrent major depression Herpes simplex type 2 infection Mixed hyperlipidemia Supraventricular tachycardia Left leg pain GERD (gastroesophageal reflux disease) Insomnia Left knee pain Nausea Depression with anxiety Surgical History History of esophagogastroduodenoscopy (EGD) Hx of colonoscopy History of removal of cyst History of surgery History of total abdominal hysterectomy History of cardiac radiofrequency ablation Family History Father Brain cancer Mother Esophageal cancer Sister Breast cancer Paternal Uncle Diabetes Hypertension Sister Colon cancer, Onset Age: 63 Social History Household Members: Children Housing: House Do you presently have visiting nurse or other home services: Yes Alcohol intake: never Patient Tobacco Use Status: Never used Tobacco e-Cigarette/Vaping Use: Never Used Second Hand Smoke Exposure: No Advance Directives: Yes Advance Directives on File: Yes Advance Directives Date on File: 03/11/23 Do you have a plan to hurt others: No Plan service: No Current occupational status: unemployed Sexual orientation: Straight/Heterosexual Gender identity: Female Cognitive needs: No Hearing needs: No Vision needs: No Female Reproductive History Menstrual Age of Menarche: 13 Review of Systems Const All systems reviewed & are unremarkable except as noted in HPI and below ENT Reports dizziness Card Denies chest pain, Denies chest pain at rest, Reports chest pain with activity, Denies rapid heart rate, Denies pedal edema, Denies edema, Denies leg edema, Denies lightheadedness, Denies palpitations, Reports dyspnea, Reports dyspnea on exertion and Reports orthopnea Resp Denies cough, Reports dyspnea and Reports dyspnea on exertion GI Denies hematochezia and Denies change in stool character Musc Denies abnormal gait, Denies limited range of motion, Denies muscle cramps, Denies muscle weakness, Denies numbness, Denies radiating pain into limb, Denies stiffness and Denies tingling Neuro Denies abnormal gait, Reports dizziness, Denies numbness and Denies tingling Endo Denies palpitations Physical Exam Vital Signs: Last Vital Signs Pulse 106 H 09/20/24 14:07 BP 124/82 09/20/24 14:07 BMI result Body Mass Index 33.5 Const General: cooperative, no acute distress and ill appearing Orientation/consciousness: patient oriented x3 Neck Neck: Yes normal visual inspection and Yes no JVD Resp Other: short of breath with walking Effort & Inspection: normal respiratory effort (unlabored at rest) Auscultation: clear to auscultation bilaterally, no rales, no rhonchi and no wheezes Cardio Jugular venous distension: no JVD Rhythm: regular rhythm Heart sounds: S1 normal heart sound present, S2 normal heart sound present, no murmurs and no rubs Neuro General: patient oriented x3 Extrem General: Yes normal to inspection and No no pedal edema Psych Appearance: grossly normal Mental Status: mental status grossly normal Speech and movement: Normal speech and movement present Office Procedures EKG Details: Today, read by me sinus tachycardia with nonspecific ST/ T wave abn, rate 106 [id number], Complete Results Reviewed Results Reviewed: Echo 09/12/24 Conclusions: - 1. Mildly reduced LV ejection fraction 45-50% with impaired relaxation filling pattern - mild increase LV wall thickness 2. Mildly reduced RV systolic function 3. Normal cardiac valvular Dopplers 4. Normal RV systolic pressure but mildly elevated right atrial pressures Assessment & Plan Assessment & Plan (1) Shortness of breath: Code(s): R06.02 - Shortness of breath Category: Medical Plan: History of asthma and some shortness of breath with activity. Follows with pulmonology. Recent increase in her shortness of breath symptom now with chest tightness during physical activity. Echo done on 09/12/2024 showed EF 45-50%, mild decrease in the RV systolic function, with mildly elevated right atrial pressure. ED evaluation yesterday showed normal troponins and BNP less than 10. On exam today she does not appear fluid overloaded. She is noted to have shortness of breath with walking. EKG in office shows sinus tachycardia with nonspecific ST and T-wave abnormalities, rate 106. Cardiac risk factors of hypertension, hyperlipidemia, diabetes, obesity. Nuclear stress test had been done 04/16/2021 showing likely normal perfusion, reversible anterior defect thought to be soft tissue attenuation artifact. With new and progressive symptoms, echo and EKG findings there is a Concern at this time for unstable angina. Patient transported to the emergency room for re-evaluation, treatment. Informed her she will likely need cardiac catheterization. Procedure, risks discussed. Recommended check of D-dimer as well to rule out PE. Report called to the emergency room and patient transported by wheelchair directly to to the department. Update given to Dr. Song who is on-call. (2) Chest discomfort: Code(s): R07.89 - Other chest pain Category: Medical Plan: New chest tightness occurring with occurring with shortness of breath during activity. (3) Cardiomyopathy: Code(s): I42.9 - Cardiomyopathy, unspecified Category: Medical Plan: New cardiomyopathy based on echocardiogram 09/12/2024. Ischemia will need to be ruled out. (4) Supraventricular tachycardia: Code(s): I47.1 - Supraventricular tachycardia Category: Medical Plan: History of supraventricular tachycardia. No recent documented episodes or reported symptoms of heart palpitations. Continue metoprolol. (5) Essential hypertension: Code(s): I10 - Essential (primary) hypertension Category: Medical Plan: Blood pressure goal less than 130/80. Normal at this time. (6) Hyperlipidemia LDL goal <70: Code(s): E78.5 - Hyperlipidemia, unspecified Category: Medical Plan: [place] LDL goal less than 70 in patient with diabetes. Continue on rosuvastatin. (7) Diabetes mellitus: Code(s): E11.9 - Type 2 diabetes mellitus without complications Category: Medical Qualifiers: Diabetes mellitus complication status: without complication Diabetes mellitus penitentiary insulin use: without penitentiary use Diabetes mellitus type: type 2 Qualified Code(s): E11.9 - Type 2 diabetes mellitus without complications Plan: Hemoglobin A1c goal less than 7. Followed by PCP Plan Time spent on chart review, documentation, interview, assessment, MD discussions. 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
--- OUTSIDE RECORDS SUMMARY | 2024-09-20 14:20 | XMS_ITS | Data Portability ---
Author Organization [place] - [facility], Allergy Address [address] [place] [address] Care Team Providers Care Landfill Attendant Name Role Phone TAMIA HERMAN Referring Provider [phone] Assessment Encounter Date Assessment Date Assessment LastModified [...] Name and Address Organization Details Recorded Time Chronic rhinitis 26419824 Active 2015 Chronic rhinitis; Note: Date Diagnosed: 10/23/2015 4:13 PM (J31.0) Not Available [facility] 02:50:32 Allergic rhinitis caused by pollen 79397796 Active 2015 Allergic rhinitis due to pollen; Note: Date Diagnosed: 11/18/2015 10:39 AM (J30.1) Not Available [facility] 08/02/202 4 02:50:33 Deviated nasal septum 330378817 Active 2016 Deviated nasal septum; Note: Date Diagnosed: 05/06/2016 9:16 AM (J34.2) Not Available [facility] 4 02:50:30 Allergic rhinitis 85260092 Active 2016 Other allergic rhinitis; Note: Date Diagnosed: 05/06/2016 9:16 AM (J30.89) Perennia l allergic rhinitis; Note: Date Diagnosed: 11/18/2015 10:39 AM (J30.89) ; Start Date : 11/18/2015 Not Available [facility] 4 02:50:28 Asthma 772797933 Active 2016 Other asthma; Note: Date Diagnosed: 05/06/2016 9:16 AM (J45.998) Not Available [facility] 4 02:50:30 Obstructi ve sleep apnea syndrome 35945705 Active 2016 Obstructiv e sleep apnea (adult) (pediatric ); Note: Date Diagnosed: 05/06/2016 9:16 AM (G47.33) Not Available [facility] 4 02:50:31 Sensorine ural hearing loss of bilateral ears 631070352 Active 2024 NARESH LINO [address], [address] , [facility] 5 10:08:59 Problem Notes None recorded. Procedures Surgical History Date Name Laterality Status Provider Name and Address Organization Details Recorded Time 03/28/2024 Comp Audio with Tymps - 28203 & 77054 completed NARESH LINO, [address], [address], [facility] 03/28/2024 10:08:52 Imaging Results None recorded. Procedure Notes None recorded. Medical Equipment None Reported. Medications Name Sig Start Date Stop Date Status Note LastModified by Organization Details LastModified Time cyclobenza salo 10 mg tablet 2015 active Medicatio n ID: [id number] Du ration Value: 30 Brand Name: cyclobenz aprine Se nd Method: E-Prescri bed Subs Allowed: subs OK Medica tionGener icName: cyclobenz aprine Not Available Not Available Not Available Qvar 80 mcg/actuat ion Metered Aerosol oral inhaler 2015 active Medicatio n ID: [id number] Du ration Value: 30 Brand Name: Qvar Send Method: E-Prescri bed Subs Allowed: subs OK Specia l Instructi on: TK 1 PUFF PO BID WITH SPACER FOR 30 DAYS Medi cationGen ericName: Qvar Not Available Not Available Not Available gabapentin 600 mg tablet 2015 active Medicatio n ID: [id number] Du ration Value: 30 Brand Name: gabapenti n Send Method: E-Prescri bed Subs Allowed: subs OK Specia l Instructi on: TK 1 T PO TID Medic ationGene ricName: gabapenti n Not Available Not Available Not Available propranolo l 80 mg tablet 2015 active Medicatio n ID: [id number] Br and Name: propranol ol Send Method: [...] nebulizati on 2015 active Medicatio n ID: [id number] Du ration Value: 25 Brand Name: Albuterol [...] mg tablet 2015 active Medicatio n ID: [id number] Du ration Value: 30 Brand Name: butalbita l-acetami nophen-ca ff Send Method: E-Prescri bed Subs Allowed: subs OK Specia l Instructi on: TK 1 T PO QD PRF PAZ Medica tionGener icName: butalbita l-acetami nophen-ca ff Not Available Not Available Not Available Medrol 4 mg tablet 2015 active Medicatio n ID: [id number] Br and Name: Medrol Se nd Method: [...] nasal spray 2015 active Medicatio n ID: [id number] Du ration Value: 30 Brand Name: flunisoli de Send Method: E-Prescri bed Subs Allowed: subs OK Specia l Instructi on: INL ONCE IEN D Medicat ionGeneri cName: flunisoli de Not Available Not Available Not Available paroxetine 20 mg tablet 2015 active Medicatio n ID: [id number] Du ration Value: 30 Brand Name: paroxetin [...] mg tablet 2015 active Medicatio n ID: [id number] Br and Name: Tylenol-C odeine #3 Send [...] mg tablet 2015 active Medicatio n ID: [id number] Du ration Value: 30 Brand Name: oxybutyni [...] mg capsule 2015 active Medicatio n ID: [id number] Br and Name: phentermi ne Send Method: E-Prescri bed Subs Allowed: subs OK Medica tionGener icName: phentermi ne Not Available Not Available Not Available loratadine 10 mg tablet TAKE 1 TABLET BY MOUTH DAILY active Not Available Not Available No t Available risperidon e 0.5 mg tablet 2015 active Medicatio n ID: [id number] Du ration Value: 30 Brand Name: risperido ne Send Method: E-Prescri bed Subs Allowed: subs OK Specia l Instructi on: TK 1 T PO QHS Medic ationGene ricName: risperido ne Not Available Not Available Not Available oxycodone 5 mg tablet 2015 active Medicatio n ID: [id number] Du ration Value: 3 Brand Name: oxycodone [...] mg tablet 2015 active Medicatio n ID: [id number] Du ration Value: 30 Brand Name: Vesicare Send Method: E-Prescri bed Subs Allowed: subs OK Specia l Instructi on: TK 1 T PO D Medicat ionGeneri cName: Vesicare Not Available Not Available Not Available Colace 2015 active Medicatio n ID: [id number] Br and Name: colace Se nd Method: E-Prescri bed Subs Allowed: subs OK Medica tionGener icName: colace Not Available Not Available Not Available naphazolin e 2015 active Medicatio n ID: [id number] Br and Name: naphazoli ne Send Method: E-Prescri bed Subs Allowed: subs OK Medica tionGener icName: naphazoli ne Not Available Not Available Not Available promethazi ne 2015 active Medicatio n ID: [id number] Br and Name: promethaz ine Send Method: E-Prescri bed Subs Allowed: subs OK Medica tionGener icName: promethaz ine Not Available Not Available Not Available Qvar 2015 active Medicatio n ID: [id number] Br and Name: qvar Send Method: E-Prescri bed Subs Allowed: subs OK Medica tionGener icName: qvar Not Available Not Available Not Available Xopenex HFA 45 mcg/actuat ion aerosol inhaler 2015 active Medicatio n ID: [id number] Du ration Value: 15 Brand Name: Xopenex [...] delayed release 2015 active Medicatio n ID: [id number] Du ration Value: 30 Brand Name: Dexilant Send Method: E-Prescri bed Subs Allowed: subs OK Specia l Instructi on: TK 1 C PO QPM AT SUPPER OR HS Medica tionGener icName: Dexilant Not Available Not Available Not Available lidocaine 5 % topical ointment 2015 active Medicatio n ID: [id number] Du ration Value: 15 Brand Name: lidocaine [...] Address Organization Details Last Updated DateTime 03/28/2024 089251.09 g 39.2 kg/m2 170.18 cm Clarice Roberts [place] - [facility] 03/28/2024 10:24:20 Social History None recorded. Functional Status None recorded. Mental Status None recorded. Family History Nothing Reported. Medical History No medical history recorded. Gynecological HistoryNo gynecological history recorded. Obstetrics History GPAL:G 0 P 0 0 0 0 Past Encounters Encounter ID Performer Location Encounter Start Date Encounter Closed Date Diagnosis/Indication Diagnosis SNOMED-CT Code Diagnosis ICD10 Code Diagnosis Note [id number] RUDY DICKSON PA-C [facility] [address] [address] 03/28/2024 09:30:25 03/28/2024 10:31:51 Sensorineural hearing loss of bilateral ears [id number] H90.3 Audiologic al evaluation results: Right ear: [...] Soto Member ID Guarantor Name 03/28/2024 1 [facility] - DOS ON OR AFTER 2022 - ONE CARE (MEDICARE REPLACEMENT/ADV ANTAGE - HMO) Simi Garza [id number] Simi Garza Notes Date Note Type Note [...] and no ear surgeries. JANINE HART MD [address] [place] [address], [place], [address], [facility] - [facility] 03/28/2024 12:42:32 OBGyn Episode No OBEpisode recorded.
== END 2024-09-20 15:11 | disposition home or self-care (01) ==
LOC: HO.HCS 13:40
PROVIDERS: PCP Internal Medicine; Visit Provider Nurse Practitioner Family
DX: R06.02 Shortness of breath (principal); R07.89 Other chest pain; I42.9 Cardiomyopathy, unspecified; I47.10 Supraventricular tachycardia, unspecified; I10 Essential (primary) hypertension; E78.5 Hyperlipidemia, unspecified; E11.8 Type 2 diabetes mellitus with unspecified complications; R00.0 Tachycardia, unspecified
CPT/HCPCS: 93010; 99215; G2211

== ENCOUNTER → 2024-09-20 13:39 | Outpatient (BNVA) | payer OTHER, SELFPAY | PROVIDERS: PCP Internal Medicine; Visit Provider Nurse Practitioner Family | DX: R07.89 Other chest pain (principal); I47.10 Supraventricular tachycardia, unspecified; I10 Essential (primary) hypertension; E78.5 Hyperlipidemia, unspecified; E11.9 Type 2 diabetes mellitus without complications; R94.31 Abnormal electrocardiogram [ECG] [EKG] | CPT/HCPCS: 93005; 99212 ==

== ENCOUNTER 2024-09-20 15:16 | Emergency (ER) | payer OTHER, SELFPAY ==
--- NOTE | ~2024-09-20 | XR_ITS ---
EXAMINATION: XR CHEST CLINICAL INFORMATION: chest pain COMPARISON: 09/19/2024. TECHNIQUE: 2 views of the chest were obtained. FINDINGS: Mild elevation of the right hemidiaphragm, unchanged. The cardiac, hilar, and mediastinal contours are normal. The lungs are clear bilaterally. There is no pneumothorax or pleural effusion. There is no focal osseous or soft tissue abnormality. XR/XR chest 2V IMPRESSION: No active pulmonary disease. Electronically signed by: Kyle Rocha MD 09/20/2024 04:10 PM EDT
[2024-09-20 15:19] VITALS: BP 152/93; PULSE 93; RESP 16; TEMP 36.1; O2SAT 99; BMI 33.8
--- NOTE | 2024-09-20 15:25 | ED.GENADULT ---
HPI - General Adult General Chief complaint: Chest Pain Stated complaint: irregular labs (brought in by provider) Time Seen by Provider: 09/20/24 15:45 History of Present Illness ED Provider: Nick BELTRAN narrative: The patient is a 59-year-old woman who has been having problems with chest pain and shortness of breath for about 4 weeks. She has been working with her bulbs farmworker, Dr. Gomez. She had an outpatient transthoracic echocardiogram 8 days ago on August 13. The echocardiogram showed a mildly reduced LV ejection fraction of 45-50% with a impaired relaxation filling pattern. There was mildly reduced RV systolic function. Normal cardiac valvular Dopplers. Normal RV systolic pressure but mildly elevated right atrial pressures. She was seen in the pulmonology office 2 days ago. At that visit I believe she was told that she should see a mattress weaver to discuss her echocardiogram results. An appointment was made for the cardiology office for today. The patient came to the emergency room yesterday because she did not feel she could wait until today to go to the cardiology appointment. She had a one view chest x-ray yesterday that showed no active pulmonary disease. She had an EKG yesterday that showed normal sinus rhythm at 100 beats per minute. No significant changes from previous. She had a CBC that showed a white count of 5.4 with a an unremarkable differential. She had a normal troponin. She was discharged from the emergency room yesterday to keep her cardiology appointment today. Today she presented to the cardiology appointment. Her SYBASE DEVELOPER had driven her to the hospital. She had eaten a breakfast of scrambled eggs at around 10:00. At the appointment she was complaining of chest pain and shortness of breath and was referred to the emergency room because of her symptoms. She is currently complaining of ongoing chest discomfort and shortness of breath. She denies fever, sweats, chills. No significant cough. She says that she has been having similar symptoms over the last 4 weeks and that her symptoms of chest pain and shortness of breath have been getting progressively worse. Related Data Home Medications ?Medication ?Instructions ?Recorded ?Confirmed lorazepam 1 mg tablet 1 mg PO TID PRN Anxiety 02/13/20 09/20/24 zolpidem 10 mg tablet 10 mg PO BEDTIME PRN Insomnia 02/13/20 09/20/24 fluticasone propionate 115 2 puff PO BID 05/06/21 09/20/24 mcg-salmeterol 21 mcg/actuation HFA inhaler (Advair HFA) loratadine 10 mg tablet 10 mg PO DAILY PRN Allergy Symptoms 08/09/22 09/20/24 paroxetine HCl 10 mg tablet 10 mg PO QAM 08/09/22 09/20/24 triamcinolone acetonide 0.1 % topical 06/20/23 09/20/24 topical ointment paroxetine HCl 40 mg tablet 20 mg PO DAILY 06/30/23 09/20/24 clobetasol 0.05 % topical ointment 1 appl topical BID 07/03/24 09/20/24 ixekizumab 80 mg/mL subcutaneous mg subcut 07/03/24 09/20/24 auto-injector (Accolade Autoinjector (3 Pack)) Previous Rx's ?Medication ?Instructions ?Recorded nebulizers (Aeroneb Go Nebulizer) #1 ea 02/05/21 ipratropium bromide 42 mcg (0.06 2 spray intranasal TID-QID PRN 07/09/22 %) nasal spray allergy symptoms 30 days #15 mL blood sugar diagnostic (OneTouch #100 ea 12/23/22 Ultra Test strips) blood-glucose meter (OneTouch #1 ea 12/23/22 Ultra2 Meter) lancets 30 gauge (OneTouch #100 ea 12/23/22 UltraSoft 2 Lancet) omalizumab 150 mg subcutaneous 300 mg subcut Q4W 28 days #1 ea 06/16/23 solution (Xolair) metoprolol succinate 50 mg 50 mg PO DAILY #90 tabs 11/18/23 tablet,extended release 24 hr esomeprazole magnesium 40 mg 40 mg PO DAILY #30 ea 06/18/24 granules delayed release for susp linaclotide 72 mcg capsule 72 mcg PO DAILY #30 caps 06/18/24 ondansetron 4 mg disintegrating 4 mg PO Q8H PRN for 06/20/24 tablet nausea/vomiting #10 tabs diclofenac sodium 1 % topical gel 2 g topical QID 30 days #100 grams 06/26/24 (Arthritis Pain (diclofenac)) aspirin 81 mg tablet,delayed 81 mg PO DAILY 90 days #90 tabs 08/19/24 release (Adult Aspirin Regimen) empagliflozin 10 mg tablet 10 mg PO DAILY 90 days #90 tabs 08/24/24 (Jardiance) polyethylene glycol 3350 17 17 g PO DAILY #510 grams 09/05/24 gram/dose oral powder fenofibrate 54 mg tablet 54 mg PO DAILY #90 tabs 09/10/24 rosuvastatin 40 mg tablet 40 mg PO DAILY 90 days #90 tabs 09/10/24 tirzepatide 10 mg/0.5 mL 10 mg (0.5 mL) subcut QWEEK 4 09/12/24 subcutaneous pen injector weeks #2 mL (Mounjaro) Allergies Allergy/AdvReac Type Severity Reaction Status Date / Time bee pollen (BEE STINGS) Allergy Intermediate RASH Verified 09/20/24 15:26 SWELLING PAIN FULL. phentermine Allergy Intermediate ANXIETY Verified 09/20/24 14:10 tramadol Allergy Intermediate stomach Verified 09/20/24 15:26 upset adhesive tape (ADHESIVE TAPE) Allergy Mild RASH Verified 09/20/24 15:26 oxycodone (OXYCODONE) AdvReac Intermediate VOMITING Verified 09/20/24 15:26 acetaminophen (From Percocet) AdvReac Vomiting Verified 09/20/24 15:26 apremilast (From Otezla) AdvReac diarrhea, Verified 09/20/24 14:10 nausea Review of Systems Review of Systems: Yes all other systems are reviewed and are negative PMFSH Past Medical History Medical History BRCA negative Hx of acute myeloid leukemia in remission Benign paroxysmal positional vertigo Hospital discharge follow-up Abscess Essential hypertension Diabetes mellitus Migraines Hand numbness Mild persistent asthma Impaired glucose tolerance Mild recurrent major depression Herpes simplex type 2 infection Mixed hyperlipidemia Supraventricular tachycardia Left leg pain GERD (gastroesophageal reflux disease) Insomnia Left knee pain Nausea Depression with anxiety Surgical History History of esophagogastroduodenoscopy (EGD) Hx of colonoscopy History of removal of cyst History of surgery History of total abdominal hysterectomy History of cardiac radiofrequency ablation Family History Family History Father Brain cancer Mother Esophageal cancer Sister Breast cancer Paternal Uncle Diabetes Hypertension Sister Colon cancer, Onset Age: 63 Social History Social History Household Members: Children Housing: House Do you presently have visiting nurse or other home services: Yes Alcohol intake: never Patient Tobacco Use Status: Never used Tobacco e-Cigarette/Vaping Use: Never Used Second Hand Smoke Exposure: No Advance Directives: Yes Advance Directives on File: Yes Advance Directives Date on File: 03/11/23 Do you have a plan to hurt others: No Plan Patient : No service: No Current occupational status: unemployed Sexual orientation: Straight/Heterosexual Gender identity: Female Cognitive needs: No Hearing needs: No Vision needs: No Physical Exam ED Vital Signs: Vital Signs - 24 hr 09/20/24 15:19 09/20/24 17:00 09/20/24 17:52 Temperature 97.0 F 98.8 F Pulse Rate 93 98 92 Respiratory Rate 16 21 H 24 H Blood Pressure 152/93 H 100/68 141/76 H Pulse Oximetry 99 99 100 Oxygen Delivery Method Room Air Room Air Room Air 09/20/24 19:52 Temperature 97.8 F Pulse Rate 79 Respiratory Rate 21 H Blood Pressure 131/77 Pulse Oximetry 100 Oxygen Delivery Method Room Air BMI result Body Mass Index 33.8 Const Other: The patient is a somewhat chronically ill-appearing 59-year-old. She was awake and had a tendency to keep her eyes closed. She looked as if she might be uncomfortable. HENMT Other: Face is symmetrical. Mucous membranes moist. Eyes Other: Pupils are round equal, conjunctivae are clear, extraocular movements intact Neck Neck: Yes normal visual inspection, Yes full ROM and Yes no JVD Resp Effort & Inspection: normal respiratory effort Auscultation: clear to auscultation bilaterally Cardio Rate: regular rate Rhythm: regular rhythm Heart sounds: S1 normal heart sound present and S2 normal heart sound present GI Other: Abdomen is soft and nontender Skin Other: Skin is dry and unremarkable Neuro Other: The patient is awake and alert. She tended to keep her eyes closed and make poor eye contact. No obvious cranial nerve deficit. She moves her extremities symmetrically and appropriately. No obvious focal neurological deficit. Extrem Other: No ankle edema. No calf swelling or tenderness. No pitting edema. No asymmetry. Course Course Course Narrative: This is a rapid medical exam performed by C. Erica, FISH CLEANER: Additional HPI, ROS, PE not included below will be deferred to primary provider. Patient is a 59-year-old Singaporean speaking female with history of asthma, HTN, DM, HLD, GERD presenting to ED from cardiology office stating that she has had chest pressure and weakness for the past 4 weeks. States she was sent here from cardiology office for labs and then admission, possible transfer to [facility]. Plan; EKG, labs, CXR Medications Administered Discontinued Medications Generic Name Dose Route Start Last Admin Trade Name Brayan PRN Reason Stop Dose Admin Sodium Chloride 1,000 mls @ 999 mls/hr 09/20/24 18:30 09/20/24 20:01 Ns IV 09/20/24 19:30 Infused .Q1H1M JUDITH Infusion Acetaminophen 1,000 mg in 100 mls @ 400 mls/hr 09/20/24 20:30 09/20/24 21:39 Ofirmev IV 09/20/24 20:44 Infused ONCE ONE Infusion Ketorolac Tromethamine 15 mg 09/20/24 18:28 09/20/24 18:46 Ketorolac Tromethamine 15 Mg/Ml Vial IVPUSH 09/20/24 18:29 15 mg ONCE ONE Administration Lorazepam 1 mg 09/20/24 20:30 09/20/24 21:10 Lorazepam 2 Mg/Ml Vial IVPUSH 09/20/24 20:31 1 mg ONCE ONE Administration Medical Decision Making Medical Decision Making [facility] Narrative: The patient is a 59-year-old woman who has been having problems with chest pain and shortness of breath for several weeks. She has been seen at her pulmonology office. She had an outpatient transthoracic echocardiogram recently that showed a mildly decreased ejection fraction. This prompted a referral to Cardiology. The patient came to the emergency room yesterday complaining of chest pain and shortness of breath and seemed to be hoping to expedite her cardiology evaluation. She was discharged from the emergency room yesterday and then kept her scheduled appointment with Cardiology today. At the cardiology office I believe she looked uncomfortable and was sent to the emergency room. Here in the emergency room she looked uncomfortable but I do not feel her EKG showed any definite ischemic changes and her vital signs seemed fairly unremarkable. Testing was done that included troponin testing that was unremarkable. A D-dimer is normal. Chest x-ray showed no acute findings. EKGs showed no definite acute changes. She was not tachycardic. Her white count was normal at 6.4 with a mild lymphocytosis. No left shift. My overall impression is that the patient has probably not having an acute coronary syndrome. She looks quite unwell and I think that given her description of the symptoms she has experienced she should have had positive troponins or more objective evidence of an acute coronary syndrome at this point given the prolonged period of time she seems to describe. Given her negative D-dimer I do not think she has a pulmonary embolism or other acute process. Her lungs sound clear. My overall impression is that I think she does not require hospitalization today. I contacted Dr. Song who was the covering mattress weaver. The patient will be discharged with instructions to follow up with her regular providers including cardiology as an outpatient. She raised the question of whether she is supposed to increase her metoprolol succinate dosing. I could not find a reference to this in the cardiology note from today and I have asked her to call the cardiology office tomorrow regarding this question Lab Data 09/20/24 16:39 09/20/24 16:39 Labs: Lab Results 09/20/24 09/20/24 09/20/24 Range/Units 16:39 17:55 19:50 WBC 6.4 (4.8-10.8) X10*3/uL RBC 4.87 (4.20-5.50) X10*6/uL Hgb 14.8 (12.0-16.0) g/dl Hct 41.4 (37.0-47.0) % MCV 85.0 (80.0-98.0) fL MCH 30.4 (27.0-33.0) pg MCHC 35.7 H (31.0-35.0) g/dl RDW 14.5 (11.0-16.0) % Plt Count 240 (160-400) X10*3/uL MPV 8.6 L (9.4-12.3) fL Immature Gran % (Auto) 0.5 H (0.0-0.4) % Neut % (Auto) 45.8 (45-73) % Lymph % (Auto) 41.9 H (20-40) % [place] % (Auto) 9.9 (2-11) % Eos % (Auto) 1.4 (0-4) % Baso % (Auto) 0.5 (0-2) % Lymph # (Auto) 2.7 (1.2-4.9) X10*3/uL [place] # (Auto) 0.6 (0.1-1.2) X10*3/uL Eos # (Auto) 0.1 (0.0-0.4) X10*3/uL Baso # (Auto) 0.0 (0.0-0.2) X10*3/uL Abs Immat Gran (auto) 0.03 (0.00-0.03) X10*3/uL Absolute Neuts (auto) 2.9 (2.0-8.3) x10*3/uL Absolute Nucleated RBC 0.000 (0.0-0.012) X10*3/uL Nucleated RBC % (auto) 0.0 (0.0-0.2) /100WBC PT 10.7 L (10.9-12.4) SEC INR 0.9 (0.9-1.1) D-Dimer High Sensitivty 165 NG/ML Sodium 139 (135-145) mmol/L Potassium 3.1 L (3.3-5.1) mmol/L Chloride 108 (96-108) mmol/L Carbon Dioxide 18 L (22-29) mmol/L Anion Gap 16 (12-20) BUN 9 (9-16) mg/dL Creatinine 0.68 (0.5-1.4) mg/dL Estim Creat Clear Calc 108.4 Estimated GFR > 60 Random Glucose 177 H (60-115) mg/dL Calcium 9.6 D (8.4-10.2) mg/dL Magnesium 1.5 L (1.6-2.6) mg/dL Total Bilirubin 0.7 (0.0-1.0) mg/dL AST 30 (5-31) U/L ALT 36 H (0-31) U/L Alkaline Phosphatase 79 (39-117) U/L Troponin I High Sens < 2.7 4.0 (<3.5-17.0) ng/L C-Reactive Protein 0.34 (< or = 0.50) mg/dL B-Natriuretic Peptide < 10 (<100) pg/mL Total Protein 6.9 (6.5-8.0) g/dL Albumin 4.3 (3.5-5.0) g/dL Influenza Type A (PCR) NEGATIVE (Negative) Influenza Type B (PCR) NEGATIVE (Negative) RSV RNA Qual (PCR) NEGATIVE (Negative) SARS-CoV-2 RNA (RT-PCR) NEGATIVE (Negative) 09/20/24 Range/Units 21:11 WBC (4.8-10.8) X10*3/uL RBC (4.20-5.50) X10*6/uL Hgb (12.0-16.0) g/dl Hct (37.0-47.0) % MCV (80.0-98.0) fL MCH (27.0-33.0) pg MCHC (31.0-35.0) g/dl RDW (11.0-16.0) % Plt Count (160-400) X10*3/uL MPV (9.4-12.3) fL Immature Gran % (Auto) (0.0-0.4) % Neut % (Auto) (45-73) % Lymph % (Auto) (20-40) % [place] % (Auto) (2-11) % Eos % (Auto) (0-4) % Baso % (Auto) (0-2) % Lymph # (Auto) (1.2-4.9) X10*3/uL [place] # (Auto) (0.1-1.2) X10*3/uL Eos # (Auto) (0.0-0.4) X10*3/uL Baso # (Auto) (0.0-0.2) X10*3/uL Abs Immat Gran (auto) (0.00-0.03) X10*3/uL Absolute Neuts (auto) (2.0-8.3) x10*3/uL Absolute Nucleated RBC (0.0-0.012) X10*3/uL Nucleated RBC % (auto) (0.0-0.2) /100WBC PT (10.9-12.4) SEC INR (0.9-1.1) D-Dimer High Sensitivty NG/ML Sodium (135-145) mmol/L Potassium (3.3-5.1) mmol/L Chloride (96-108) mmol/L Carbon Dioxide (22-29) mmol/L Anion Gap (12-20) BUN (9-16) mg/dL Creatinine (0.5-1.4) mg/dL Estim Creat Clear Calc Estimated GFR Random Glucose (60-115) mg/dL Calcium (8.4-10.2) mg/dL Magnesium (1.6-2.6) mg/dL Total Bilirubin (0.0-1.0) mg/dL AST (5-31) U/L ALT (0-31) U/L Alkaline Phosphatase (39-117) U/L Troponin I High Sens 3.9 (<3.5-17.0) ng/L C-Reactive Protein (< or = 0.50) mg/dL B-Natriuretic Peptide (<100) pg/mL Total Protein (6.5-8.0) g/dL Albumin (3.5-5.0) g/dL Influenza Type A (PCR) (Negative) Influenza Type B (PCR) (Negative) RSV RNA Qual (PCR) (Negative) SARS-CoV-2 RNA (RT-PCR) (Negative) Independent Interpretation I performed an independent interpretation of an: EKG Interpretation: EKG at 15:30 shows normal sinus rhythm at 94 beats per minute. It is an unremarkable EKG and similar to her EKG from yesterday. A 2nd EKG was done at 20:57 that showed normal sinus rhythm at 80 beats per minute and was very similar to the previous EKG. Neither EKG had any definite ischemic changes. Discharge Plan Discharge Clinical Impression: Chest pain, Shortness of breath Patient Disposition: Home, Self-Care Additional Instructions: Your testing in the emergency room today seems very reassuring. I do not think you need to be hospitalized today for a cardiac catheterization. Please continue your regular medications. Please contact the cardiology office tomorrow to confirm an increase to your metoprolol dosing. Otherwise continue all of your current medications. Please plan on following up additionally as an outpatient with the cardiology and with your regular doctor. Return to the emergency room if you feel significantly worse. Prescriptions: No Action (DME) Aeroneb Go Nebulizer Misc See Rx Instructions .Route Qty: 1 0RF Rx Instructions: As directed (DME) blood-glucose meter [OneTouch Ultra2 Meter] Misc See Rx Instructions .Route Qty: 1 0RF Rx Instructions: As directed (DME) OneTouch Ultra Test Strip See Rx Instructions .Route Qty: 100 3RF Rx Instructions: Use 1 test strip once a day (DME) lancets [OneTouch UltraSoft 2 Lancet] 30 gauge misc See Rx Instructions .Route Qty: 100 3RF Rx Instructions: Use 1 lancet once a day Xolair 150 mg recon soln 300 mg subcut Q4W 28 Days Qty: 1 12RF Rx Instructions: requires multiple injection sites; do not exceed 150 mg per injection site ondansetron 4 mg tablet,disintegrating 4 mg PO Q8H PRN (Reason: for nausea/vomiting) Qty: 10 0RF aspirin [Adult Aspirin Regimen] 81 mg tablet,delayed release (DR/EC) 81 mg PO DAILY 90 Days Qty: 90 0RF Jardiance 10 mg tablet 10 mg PO DAILY 90 Days Qty: 90 0RF polyethylene glycol 3350 17 gram/dose powder 17 g PO DAILY Qty: 510 0RF fenofibrate 54 mg tablet 54 mg PO DAILY Qty: 90 0RF rosuvastatin 40 mg tablet 40 mg PO DAILY 90 Days Qty: 90 1RF Mounjaro 10 mg/0.5 mL pen injector 10 mg subcut QWEEK 28 Days Qty: 2 0RF paroxetine HCl 40 mg tablet 20 mg PO DAILY lorazepam 1 mg tablet 1 mg PO TID PRN (Reason: Anxiety) zolpidem 10 mg tablet 10 mg PO BEDTIME PRN (Reason: Insomnia) Advair HFA 115-21 mcg/actuation HFA aerosol inhaler 2 puff PO BID triamcinolone acetonide 0.1 % ointment topical paroxetine HCl 10 mg tablet 10 mg PO QAM loratadine 10 mg tablet 10 mg PO DAILY PRN (Reason: Allergy Symptoms) ipratropium bromide 42 mcg (0.06 %) spray,non-aerosol 2 spray intranasal TID-QID PRN (Reason: allergy symptoms) 30 Days Qty: 15 6RF Rx Instructions: administer into each nostril metoprolol succinate 50 mg tablet extended release 24 hr 50 mg PO DAILY Qty: 90 3RF Rx Instructions: dose increased linaclotide 72 mcg capsule 72 mcg PO DAILY Qty: 30 3RF esomeprazole magnesium [address] for susp in packet 40 mg PO DAILY Qty: 30 2RF diclofenac sodium [Arthritis Pain (diclofenac)] 1 % gel 2 g topical QID 30 Days Qty: 100 1RF Rx Instructions: apply to single elbow, wrist or hand; for hand includes palm/fingers/back of hand clobetasol 0.05 % ointment 1 appl topical BID Marianna Autoinjector (3 Pack) 80 mg/mL auto-injector subcut Print Language: Singaporean
--- NOTE | 2024-09-20 15:27 | ECG_ITS ---
Test Reason : CHEST PAIN Blood Pressure : */* mmHG Vent. Rate : 94 BPM Atrial Rate : 94 BPM P-R Int : 146 ms QRS Dur : 96 ms QT Int : 374 ms P-R-T Axes : 64 8 14 degrees QTcB Int : 467 ms Normal sinus rhythm Normal ECG When compared with ECG of 19-Sep-2024 09:50, No significant change was found Referred By: Yamileth Maldonado Electronically Signed By: DAVID VILLA
[2024-09-20 16:46] LABS: MANUAL DIFF FLAG NO
[2024-09-20 16:47] LABS: Hematocrit 41.4 % (37.0-47.0); Hemoglobin 14.8 g/dl (12.0-16.0); Imm Gran Abs Auto 0.03 X10*3/uL (0.00-0.03); Imm Gran Pct Auto 0.5 % (0.0-0.4); Lymphocytes Absolute Auto 2.7 X10*3/uL (1.2-4.9); Mean Corpuscular HGB Conc 35.7 g/dl (31.0-35.0); Mean Corpuscular Hemoglobin 30.4 pg (27.0-33.0); Mean Corpuscular Volume 85.0 fL (80.0-98.0); NRBC Abs Auto 0.000 X10*3/uL (0.0-0.012); NRBC Pct Auto 0.0 /100WBC (0.0-0.2); Platelet Count 240 X10*3/uL (160-400); Red Blood Count 4.87 X10*6/uL (4.20-5.50); White Blood Count 6.4 X10*3/uL (4.8-10.8)
[2024-09-20 16:57] LABS: INTERNATIONAL NORM RATIO 0.9 (0.9-1.1); Prothrombin Time 10.7 SEC (10.9-12.4)
[2024-09-20 17:00] VITALS: BP 100/68; PULSE 98; RESP 21; O2SAT 99
[2024-09-20 17:00] LABS: D Dimer High Sensitivity 165 NG/ML
[2024-09-20 17:03] LABS: Alanine Aminotransferase 36 U/L (0-31); Albumin Level 4.3 g/dL (3.5-5.0); Alkaline Phosphatase 79 U/L (39-117); Anion Gap 16 (12-20); Aspartate Amino Transferase 30 U/L (5-31); Blood Urea Nitrogen 9 mg/dL (9-16); Calcium 9.6 mg/dL (8.4-10.2); Carbon Dioxide 18 mmol/L (22-29); Chloride 108 mmol/L (96-108); Creatinine Clr Calc Pharmacy 108.4; Estimated Glomerular Filt Rate > 60; Magnesium 1.5 mg/dL (1.6-2.6); Potassium 3.1 mmol/L (3.3-5.1); Sodium 139 mmol/L (135-145); Total Protein 6.9 g/dL (6.5-8.0)
[2024-09-20 17:07] LABS: B Type Natriuretic Peptide < 10 pg/mL (<100)
[2024-09-20 17:11] LABS: Troponin-I High Sensitivity < 2.7 ng/L (<3.5-17.0)
--- NOTE | 2024-09-20 17:33 | PC.NURSE ---
pt difficult stick, iv US guided inserted, labs drawn, ekg performed, shelter monitor applied, family at bedside, call mcknight within reach, plan of care ongoing
[2024-09-20 17:52] VITALS: BP 141/76; PULSE 92; RESP 24; TEMP 37.1; O2SAT 100
--- NOTE | 2024-09-20 17:55 | PC.NURSE ---
via hourly sign language interpreter (Tarik): pt continues to report 10/10 chest/rib pain with additional pain/twitching to her thighs. pt reports increased dizziness and sob. hypertensive, other vss. provider notified.
[2024-09-20 18:45] LABS: Resp Syncy Virus RNA Qual PCR NEGATIVE (Negative); SARS COV2 PCR INHOUSE NEGATIVE (Negative)
[2024-09-20 19:52] VITALS: BP 131/77; PULSE 79; RESP 21; TEMP 36.6; O2SAT 100
[2024-09-20 20:15] LABS: Troponin-I High Sensitivity 4.0 ng/L (<3.5-17.0)
--- NOTE | 2024-09-20 20:30 | ECG_ITS ---
Test Reason : CP Blood Pressure : */* mmHG Vent. Rate : 80 BPM Atrial Rate : 80 BPM P-R Int : 146 ms QRS Dur : 94 ms QT Int : 414 ms P-R-T Axes : 63 0 5 degrees QTcB Int : 477 ms Normal sinus rhythm Normal ECG When compared with ECG of 20-Sep-2024 15:30, No significant change was found Referred By: Kang Romero Electronically Signed By: DAVID VILLA
[2024-09-20] MEDS: LORazepam 2 MG/ML VIAL 1 MG IVPUSH (21:10)
[2024-09-20 21:38] LABS: Troponin-I High Sensitivity 3.9 ng/L (<3.5-17.0)
[2024-09-20 21:52] VITALS: BP 109/71; PULSE 88; RESP 19; TEMP 36.7; O2SAT 97
[2024-09-20 21:58] VITALS: BP 109/71; PULSE 88; RESP 19; TEMP 36.7; O2SAT 97
== END 2024-09-20 22:05 | disposition home or self-care (01) ==
PROVIDERS: Registered Nurse Emergency; Emergency Provider Emergency Medicine
DX: R07.89 Other chest pain (principal); R79.89 Other specified abnormal findings of blood chemistry; I10 Essential (primary) hypertension; R06.02 Shortness of breath; R11.0 Nausea; Z03.818 Encounter for observation for suspected exposure to other biological agents ruled out; Z79.899 Other long term (current) drug therapy
CPT/HCPCS: 36415; 71046; 80053; 83735; 83880; 84484; 85025; 85379; 85610; 86140; 87637; 93005; 96361; 96365; 96375; 99284; 99285; J0131; J1885; J2060

== ENCOUNTER → 2024-09-20 15:27 | Outpatient (BNV) | payer OTHER, SELFPAY | PROVIDERS: Emergency Provider Emergency Medicine; Visit Provider Radiology Diagnostic Radiology | DX: R07.9 Chest pain, unspecified (principal) | CPT/HCPCS: 71046 ==

== ENCOUNTER 2024-09-24 08:17 | Outpatient (REF) | payer OTHER, SELFPAY ==
--- OUTSIDE RECORDS SUMMARY | 2024-09-24 08:23 | XMS_ITS | Data Portability ---
Author Organization [place] - [facility], Allergy Address [address] [place] [id number] Care Team Providers Care Sharepoint Solutions Developer Name Role Phone TAMIA HERMAN Referring Provider [...] Address Organization Details Recorded Time Chronic rhinitis [id number] Active 2015 Chronic rhinitis; Note: Date Diagnosed: 10/23/2015 4:13 PM (J31.0) Not Available [facility] 02:50:32 Allergic rhinitis caused by pollen [id number] Active 2015 Allergic rhinitis due to pollen; Note: Date Diagnosed: 11/18/2015 10:39 AM (J30.1) Not Available [facility] 08/02/202 4 02:50:33 Deviated nasal septum 994483040 Active 2016 Deviated nasal septum; Note: Date Diagnosed: 05/06/2016 9:16 AM (J34.2) Not Available [facility] 4 02:50:30 Allergic rhinitis 91110302 Active 2016 Other allergic rhinitis; Note: Date Diagnosed: 05/06/2016 9:16 AM (J30.89) Perennia l allergic rhinitis; Note: Date Diagnosed: 11/18/2015 10:39 AM (J30.89) ; Start Date : 11/18/2015 Not Available [facility] 4 02:50:28 Asthma 031717452 Active 2016 Other asthma; Note: Date Diagnosed: 05/06/2016 9:16 AM (J45.998) Not Available [facility] 4 02:50:30 Obstructi ve sleep apnea syndrome 42250700 Active 2016 Obstructiv e sleep apnea (adult) (pediatric ); Note: Date Diagnosed: 05/06/2016 9:16 AM (G47.33) Not Available [facility] 4 02:50:31 Sensorine ural hearing loss of bilateral ears 619245611 Active 2024 [address]O [address], [address] , [facility] 5 10:08:59 Problem Notes None recorded. Procedures Surgical History Date Name Laterality Status Provider Name and Address Organization Details Recorded Time 03/28/2024 Comp Audio with Tymps - 96563 & 23828 completed NARESH LINO, [address], [address], [facility] 03/28/2024 10:08:52 Imaging Results None recorded. Procedure Notes None recorded. Medical Equipment None Reported. Medications Name Sig Start Date Stop Date Status Note LastModified by Organization Details LastModified Time cyclobenza salo 10 mg tablet 2015 active Medicatio n ID: [id number] Du ration Value: 30 Brand Name: cyclobenz aprine Se nd Method: E-Prescri bed Subs Allowed: subs OK Medica tionGener icName: cyclobenz aprine Not Available Not Available Not Available Qvar 80 mcg/actuat ion Metered Aerosol oral inhaler 2015 active Medicatio n ID: [id number] Du ration Value: 30 Brand Name: Qvar Send Method: E-Prescri bed Subs Allowed: subs OK Specia l Instructi on: TK 1 PUFF PO BID WITH SPACER FOR 30 DAYS Medi cationGen ericName: Qvar Not Available Not Available Not Available gabapentin 600 mg tablet 2015 active Medicatio n ID: [id number] Du ration Value: 30 Brand Name: gabapenti n Send Method: E-Prescri bed Subs Allowed: subs OK Specia l Instructi on: TK 1 T PO TID Medic ationGene ricName: gabapenti n Not Available Not Available Not Available propranolo l 80 mg tablet 2015 active Medicatio n ID: [id number] Br and Name: propranol ol Send Method: [...] nebulizati on 2015 active Medicatio n ID: [id number] Du ration Value: 25 Brand Name: Albuterol [...] mg tablet 2015 active Medicatio n ID: [id number] Du ration Value: 30 Brand Name: butalbita l-acetami nophen-ca ff Send Method: E-Prescri bed Subs Allowed: subs OK Specia l Instructi on: TK 1 T PO QD PRF PAZ Medica tionGener icName: butalbita l-acetami nophen-ca ff Not Available Not Available Not Available Medrol 4 mg tablet 2015 active Medicatio n ID: [id number] Br and Name: Medrol Se nd Method: [...] nasal spray 2015 active Medicatio n ID: [id number] Du ration Value: 30 Brand Name: flunisoli de Send Method: E-Prescri bed Subs Allowed: subs OK Specia l Instructi on: INL ONCE IEN D Medicat ionGeneri cName: flunisoli de Not Available Not Available Not Available paroxetine 20 mg tablet 2015 active Medicatio n ID: [id number] Du ration Value: 30 Brand Name: paroxetin [...] mg tablet 2015 active Medicatio n ID: [id number] Br and Name: Tylenol-C odeine #3 Send [...] mg tablet 2015 active Medicatio n ID: [id number] Du ration Value: 30 Brand Name: oxybutyni [...] mg capsule 2015 active Medicatio n ID: [id number] Br and Name: phentermi ne Send Method: E-Prescri bed Subs Allowed: subs OK Medica tionGener icName: phentermi ne Not Available Not Available Not Available loratadine 10 mg tablet TAKE 1 TABLET BY MOUTH DAILY active Not Available Not Available No t Available risperidon e 0.5 mg tablet 2015 active Medicatio n ID: [id number] Du ration Value: 30 Brand Name: risperido ne Send Method: E-Prescri bed Subs Allowed: subs OK Specia l Instructi on: TK 1 T PO QHS Medic ationGene ricName: risperido ne Not Available Not Available Not Available oxycodone 5 mg tablet 2015 active Medicatio n ID: [id number] Du ration Value: 3 Brand Name: oxycodone [...] mg tablet 2015 active Medicatio n ID: [id number] Du ration Value: 30 Brand Name: Vesicare Send Method: E-Prescri bed Subs Allowed: subs OK Specia l Instructi on: TK 1 T PO D Medicat ionGeneri cName: Vesicare Not Available Not Available Not Available Colace 2015 active Medicatio n ID: [id number] Br and Name: colace Se nd Method: E-Prescri bed Subs Allowed: subs OK Medica tionGener icName: colace Not Available Not Available Not Available naphazolin e 2015 active Medicatio n ID: [id number] Br and Name: naphazoli ne Send Method: E-Prescri bed Subs Allowed: subs OK Medica tionGener icName: naphazoli ne Not Available Not Available Not Available promethazi ne 2015 active Medicatio n ID: [id number] Br and Name: promethaz ine Send Method: E-Prescri bed Subs Allowed: subs OK Medica tionGener icName: promethaz ine Not Available Not Available Not Available Qvar 2015 active Medicatio n ID: [id number] Br and Name: qvar Send Method: E-Prescri bed Subs Allowed: subs OK Medica tionGener icName: qvar Not Available Not Available Not Available Xopenex HFA 45 mcg/actuat ion aerosol inhaler 2015 active Medicatio n ID: [id number] Du ration Value: 15 Brand Name: Xopenex [...] delayed release 2015 active Medicatio n ID: [id number] Du ration Value: 30 Brand Name: Dexilant Send Method: E-Prescri bed Subs Allowed: subs OK Specia l Instructi on: TK 1 C PO QPM AT SUPPER OR HS Medica tionGener icName: Dexilant Not Available Not Available Not Available lidocaine 5 % topical ointment 2015 active Medicatio n ID: [id number] Du ration Value: 15 Brand Name: lidocaine [...] Address Organization Details Last Updated DateTime 03/28/2024 017722.09 g 39.2 kg/m2 170.18 cm Clarice Roberts [place] - [facility] 03/28/2024 10:24:20 Social History None recorded. Functional Status None recorded. Mental Status None recorded. Family History Nothing Reported. Medical History No medical history recorded. Gynecological HistoryNo gynecological history recorded. Obstetrics History GPAL:G 0 P 0 0 0 0 Past Encounters Encounter ID Performer Location Encounter Start Date Encounter Closed Date Diagnosis/Indication Diagnosis SNOMED-CT Code Diagnosis ICD10 Code Diagnosis Note [id number] RUDY DICKSON PA-C [facility] [address] [address] 03/28/2024 09:30:25 03/28/2024 10:31:51 Sensorineural hearing loss of bilateral ears [id number] H90.3 Audiologic al evaluation results: Right ear: [...] Name 03/28/2024 1 [facility] [place] - DOS ON OR AFTER 2022 - ONE CARE (MEDICARE REPLACEMENT/ADV ANTAGE - HMO) Simi Garza [id number] Simi Garza Notes Date Note Type Note [...] and no ear surgeries. JANINE HART MD [address] [place] [address], [place], [address], [facility] - [facility] 03/28/2024 12:42:32 OBGyn Episode No OBEpisode recorded.
[2024-09-24 08:43] LABS: MANUAL DIFF FLAG NO
[2024-09-24 09:09] LABS: Hematocrit 44.9 % (37.0-47.0); Hemoglobin 15.2 g/dl (12.0-16.0); Imm Gran Abs Auto 0.05 X10*3/uL (0.00-0.03); Imm Gran Pct Auto 0.8 % (0.0-0.4); Lymphocytes Absolute Auto 2.4 X10*3/uL (1.2-4.9); Mean Corpuscular HGB Conc 33.9 g/dl (31.0-35.0); Mean Corpuscular Hemoglobin 29.8 pg (27.0-33.0); Mean Corpuscular Volume 88.0 fL (80.0-98.0); NRBC Abs Auto 0.000 X10*3/uL (0.0-0.012); NRBC Pct Auto 0.0 /100WBC (0.0-0.2); Platelet Count 240 X10*3/uL (160-400); Red Blood Count 5.10 X10*6/uL (4.20-5.50); White Blood Count 6.0 X10*3/uL (4.8-10.8)
[2024-09-24 09:51] LABS: Alanine Aminotransferase 41 U/L (0-31); Albumin Level 4.5 g/dL (3.5-5.0); Alkaline Phosphatase 77 U/L (39-117); Anion Gap 13 (12-20); Aspartate Amino Transferase 32 U/L (5-31); Blood Urea Nitrogen 7 mg/dL (9-16); Calcium 9.8 mg/dL (8.4-10.2); Carbon Dioxide 24 mmol/L (22-29); Chloride 107 mmol/L (96-108); Cholesterol 186 mg/dL (<200); Estimated Glomerular Filt Rate > 60; HDL Cholesterol 49 mg/dL (>40); Iron 78 mcg/dL (30-160); Magnesium 1.5 mg/dL (1.6-2.6); Percent Iron Saturation 21 % (15-50); Potassium 3.7 mmol/L (3.3-5.1); Sodium 140 mmol/L (135-145); Total Iron Binding Capacity 363 mcg/dL (228-428); Total Protein 7.0 g/dL (6.5-8.0); Triglycerides 259 mg/dL (<150); Unsaturated Iron Binding 285 ug/dL
[2024-09-24 10:14] LABS: Folate 15.7 ng/mL (> or = 4.0); Vitamin B12 578 pg/mL (200-900)
[2024-09-24 16:50] LABS: Microalbum/Creatinine Ratio Ur 247.7 ug/mg cr (<30)
== END 2024-09-24 08:18 | disposition home or self-care (01) ==
LOC: HO.LAB 08:17
PROVIDERS: Absent Provider Nurse Practitioner Family; PCP Internal Medicine; Visit Provider Internal Medicine
DX: I10 Essential (primary) hypertension (principal); R07.9 Chest pain, unspecified; E55.9 Vitamin D deficiency, unspecified; D64.9 Anemia, unspecified; E78.5 Hyperlipidemia, unspecified; E53.8 Deficiency of other specified B group vitamins; E78.2 Mixed hyperlipidemia; R80.9 Proteinuria, unspecified
CPT/HCPCS: 36415; 80053; 80061; 82043; 82306; 82570; 82607; 82746; 83540; 83735; 85025

== ENCOUNTER → 2024-09-25 23:59 | Outpatient (BNV) | payer OTHER, SELFPAY | PROVIDERS: PCP Internal Medicine; Visit Provider Internal Medicine Cardiovascular Disease | DX: I20.89 Other forms of angina pectoris (principal) | CPT/HCPCS: 93458; 99152 ==

== ENCOUNTER 2024-10-09 09:15 | Outpatient (AMB) | payer OTHER, SELFPAY ==
[2024-10-09 09:38] VITALS: BP 108/70; PULSE 99; BMI 33.8
--- NOTE | 2024-10-09 09:38 | MHC.OFFVIS ---
Vital Signs 10/09/24 09:38 Height 5 ft 7 in Weight 215 lb 9.793 oz BMI 33.8 BP 108/70 Blood Pressure Location Lt brachial Position Sitting Pulse 99 Pulse Source Pulse Oximeter Intake Visit Reasons: 2wk f/up cath Equal Opportunity Representative Required: Yes Equal Opportunity Representative Name: voice clements [id number] Allergies bee pollen (BEE STINGS) Allergy (Intermediate, Verified 10/09/24 09:41) RASH SWELLING PAIN FULL. phentermine Allergy (Intermediate, Verified 10/09/24 09:41) ANXIETY tramadol Allergy (Intermediate, Verified 10/09/24 09:41) stomach upset adhesive tape (ADHESIVE TAPE) Allergy (Mild, Verified 10/09/24 09:41) RASH oxycodone (OXYCODONE) Adverse Reaction (Intermediate, Verified 10/09/24 09:41) VOMITING acetaminophen (From Percocet) Adverse Reaction (Verified 10/09/24 09:41) Vomiting apremilast (From Otezla) Adverse Reaction (Verified 10/09/24 09:41) diarrhea, nausea Medication List - Last Reconciled 10/09/24 by Mary Gardner NP-C amlodipine 2.5 mg PO DAILY aspirin (Adult Aspirin Regimen) 81 mg PO DAILY 90 days blood sugar diagnostic (Emailage Ultra Test strips) Use 1 test strip once a day blood-glucose meter (Emailage Ultra2 Meter) As directed clobetasol 0.05% 1 appl topical BID diclofenac sodium 1% (Arthritis Pain (diclofenac)) 2 grams topical QID 30 days empagliflozin (Jardiance) 10 mg PO DAILY 90 days epinephrine IM ONCE esomeprazole magnesium DR 40 mg PO DAILY fenofibrate 54 mg PO DAILY fluticasone propion-salmeterol 115-21 mcg/actuation (Advair HFA) 2 puffs PO BID gabapentin 300 mg PO BID ipratropium bromide 2 sprays intranasal TID-QID PRN 30 days ixekizumab (Taltz Autoinjector (3 Pack)) mg subcut lancets (Emailage UltraSoft 2 Lancet) Use 1 lancet once a day levocetirizine 5 mg PO DAILY linaclotide 72 mcg PO DAILY loratadine 10 mg PO DAILY PRN lorazepam 1 mg PO TID PRN metoprolol succinate ER 50 mg PO DAILY nebulizers (Aeroneb Go Nebulizer) As directed omalizumab (Xolair) 300 mg subcut Q4W 28 days ondansetron 4 mg PO Q8H PRN paroxetine HCl 20 mg PO DAILY paroxetine HCl 10 mg PO QAM polyethylene glycol 3350 17 grams PO DAILY rosuvastatin 40 mg PO DAILY 90 days tirzepatide (Mounjaro) 10 mg (0.5 mL) subcut QWEEK 4 weeks triamcinolone acetonide 0.1% topical zolpidem 10 mg PO BEDTIME PRN HPI HPI 2wk f/up cath: Details: Simi is a 59-year-old female past medical history of hypertension, hyperlipidemia, diabetes, obesity, asthma, SVT who recently had echocardiogram showing EF 45-50% and mildly reduced RV systolic function who was recently reporting increasing shortness of breath. To ER evaluations without acute findings. She underwent cardiac catheterization showing normal coronary arteries and now presents for follow-up. Today she reports that she is still noticing shortness of breath but not quite as bad as when she was last seen. When she is short of breath she notices a tightness in her chest. She has been having lightheadedness and unsteadiness related to vertigo. She is not having concerning symptoms at rest. She uses CPAP at night and sleeps with her head of the bed elevated. No recent concerning heart palpitations, presyncope, syncope. Takes meds as directed. Certified light fixture servicer used. [facility] Medical History BRCA negative Hx of acute myeloid leukemia in remission Benign paroxysmal positional vertigo Hospital discharge follow-up Abscess Essential hypertension Diabetes mellitus Migraines Hand numbness Mild persistent asthma Impaired glucose tolerance Mild recurrent major depression Herpes simplex type 2 infection Mixed hyperlipidemia Supraventricular tachycardia Left leg pain GERD (gastroesophageal reflux disease) Insomnia Left knee pain Nausea Depression with anxiety Surgical History History of esophagogastroduodenoscopy (EGD) Hx of colonoscopy History of removal of cyst History of surgery History of total abdominal hysterectomy History of cardiac radiofrequency ablation Family History Father Brain cancer Mother Esophageal cancer Sister Breast cancer Paternal Uncle Diabetes Hypertension Sister Colon cancer, Onset Age: 63 Social History Household Members: Children Housing: House Do you presently have visiting nurse or other home services: Yes Alcohol intake: never Patient Tobacco Use Status: Never used Tobacco e-Cigarette/Vaping Use: Never Used Second Hand Smoke Exposure: No Advance Directives Date on File: 03/11/23 service: No Current occupational status: unemployed Sexual orientation: Straight/Heterosexual Gender identity: Female Cognitive needs: No Hearing needs: No Vision needs: No Female Reproductive History Menstrual Age of Menarche: 13 Review of Systems Const All systems reviewed & are unremarkable except as noted in HPI and below ENT Reports dizziness Card Details: chest tight when feeling sob Denies chest pain, Denies chest pain at rest, Denies chest pain with activity, Denies rapid heart rate, Denies pedal edema, Denies edema, Denies leg edema, Denies lightheadedness, Denies palpitations, Denies dyspnea, Reports dyspnea on exertion and Denies orthopnea Resp Denies cough, Denies dyspnea and Reports dyspnea on exertion GI Denies hematochezia and Denies change in stool character Musc Details: balance issues when dizzy Denies abnormal gait, Denies limited range of motion, Denies muscle cramps, Denies muscle weakness, Denies numbness, Denies radiating pain into limb, Denies stiffness and Denies tingling Neuro Denies abnormal gait, Reports dizziness, Denies numbness and Denies tingling Endo Denies palpitations Physical Exam Vital Signs: Last Vital Signs Pulse 99 10/09/24 09:38 BP 108/70 10/09/24 09:38 BMI result Body Mass Index 33.8 Const General: cooperative, healthy appearing, comfortable and no acute distress Orientation/consciousness: patient oriented x3 Neck Neck: Yes normal visual inspection Resp Effort & Inspection: normal respiratory effort Auscultation: clear to auscultation bilaterally, no rales, no rhonchi and no wheezes Cardio Rate: regular rate Rhythm: regular rhythm Heart sounds: S1 normal heart sound present, S2 normal heart sound present, no gallops, no murmurs and no rubs Neuro General: patient oriented x3 Extrem General: Yes normal to inspection and No no pedal edema Psych Appearance: grossly normal Mental Status: mental status grossly normal Speech and movement: Normal speech and movement present Assessment & Plan Assessment & Plan (1) Shortness of breath: Code(s): R06.02 - Shortness of breath Category: Medical Plan: Recent reports of increased shortness of breath and chest tightness. 2 ER evaluations without acute findings. Echo done on 09/12/2024 showed EF 45-50%, mild decrease in the RV systolic function, with mildly elevated right atrial pressure. Cardiac catheterization done 09/25/2024 showing normal coronary arteries with mid LAD bridge. Test results reviewed with her in detail. She has mild cardiomyopathy which is nonischemic. She does not appear fluid overloaded on exam today. Recent BNP testing was normal. Recommend she continue to follow with pulmonology for treatment of asthma/COPD. Will medically manage her mild cardiomyopathy. (2) Cardiomyopathy: Code(s): I42.9 - Cardiomyopathy, unspecified Category: Medical Plan: Nonischemic cardiomyopathy, which is newer finding for her. No clear cause at this time. History of SVT, will check Holter monitor to assess for tachyarrhythmias. Continue compliance with CPAP. Blood pressure currently well controlled. She is not on Sánchez/Arb for unclear reason. No allergy listed. Will have her stop amlodipine and add lisinopril 5 mg daily. Continue metoprolol XL for neurohormonal modulation. Signs and symptoms of heart failure reviewed with her. Finding of mild cardiomyopathy was discussed. (3) Supraventricular tachycardia: Code(s): I47.1 - Supraventricular tachycardia Category: Medical Plan: History of supraventricular tachycardia. No recent documented episodes or reported symptoms of heart palpitations. Continue metoprolol. (4) Essential hypertension: Code(s): I10 - Essential (primary) hypertension Category: Medical Plan: Blood pressure goal less than 130/80. Normal at this time. Changing amlodipine to lisinopril for neurohormonal modulation (5) Hyperlipidemia LDL goal <70: Code(s): E78.5 - Hyperlipidemia, unspecified Category: Medical Plan: [place] LDL goal less than 70 in patient with diabetes. Continue on rosuvastatin. (6) Diabetes mellitus: Code(s): E11.9 - Type 2 diabetes mellitus without complications Category: Medical Qualifiers: Diabetes mellitus type: type 2 Diabetes mellitus termite control representative insulin use: without termite control representative use Diabetes mellitus complication status: without complication Qualified Code(s): E11.9 - Type 2 diabetes mellitus without complications Plan: Hemoglobin A1c goal less than 7. Followed by PCP (7) S/P cardiac catheterization: Comment: 09/25/2024, normal coronary arteries, mid LAD bridge Code(s): Z98.890 - Other specified postprocedural states Category: Surgical Plan: Right radial catheterization site well healed Plan Time spent on chart review, documentation, interview, assessment. Orders: Orders ECG 3 day holter monitor Today R00.2 - Palpitations Medications: New lisinopril New 5 mg PO DAILY 30 tabs 5RF Discontinued amlodipine new Discontinued Reason: Doctor's Order 2.5 mg PO DAILY 30 tabs 1RF Coding Level of Care Code Est Pt Level 4 (96928) Complex EM visit Add On G2211 Diagnoses Shortness of breath R06.02 Cardiomyopathy I42.9 Supraventricular tachycardia I47.1 Essential hypertension I10 Hyperlipidemia LDL goal <70 E78.5 Type 2 diabetes mellitus without complication, without long-term current use of insulin E11.9 Diabetes mellitus type: type 2 Diabetes mellitus termite control representative insulin use: without chcf use Diabetes mellitus complication status: without complication S/P cardiac catheterization Z98.890 Time Spent (min) 35
== END 2024-10-09 10:13 | disposition home or self-care (01) ==
LOC: HO.HCS 09:16
PROVIDERS: PCP Internal Medicine; Visit Provider Nurse Practitioner Family
DX: R06.02 Shortness of breath (principal); I42.9 Cardiomyopathy, unspecified; I47.10 Supraventricular tachycardia, unspecified; I10 Essential (primary) hypertension; E78.5 Hyperlipidemia, unspecified; E11.9 Type 2 diabetes mellitus without complications; Z98.890 Other specified postprocedural states
CPT/HCPCS: 99214; G2211

== ENCOUNTER → 2024-10-09 09:15 | Outpatient (BNVA) | payer OTHER, SELFPAY | PROVIDERS: PCP Internal Medicine; Visit Provider Nurse Practitioner Family | DX: R06.02 Shortness of breath (principal); R00.2 Palpitations; I42.9 Cardiomyopathy, unspecified; I47.10 Supraventricular tachycardia, unspecified; I10 Essential (primary) hypertension; E78.5 Hyperlipidemia, unspecified; E11.9 Type 2 diabetes mellitus without complications; Z98.890 Other specified postprocedural states | CPT/HCPCS: 99212 ==

== ENCOUNTER 2024-10-10 07:17 | Outpatient (AMB) | payer OTHER, SELFPAY ==
--- NOTE | 2024-10-10 07:38 | A.OFFPC_ITS ---
Vital Signs 10/10/24 07:41 Height 5 ft 7 in Weight 215 lb BMI 33.7 BP 112/80 Blood Pressure Location Lt brachial Position Sitting Intake Visit Reasons: PE-A1C needed Intake Note: Patient here for a physical exam Blood Bank Custodian Required: No Accompanied by: legal billing specialist Allergies bee pollen (BEE STINGS) Allergy (Intermediate, Verified 10/10/24 07:47) RASH SWELLING PAIN FULL. phentermine Allergy (Intermediate, Verified 10/10/24 07:47) ANXIETY tramadol Allergy (Intermediate, Verified 10/10/24 07:47) stomach upset adhesive tape (ADHESIVE TAPE) Allergy (Mild, Verified 10/10/24 07:47) RASH oxycodone (OXYCODONE) Adverse Reaction (Intermediate, Verified 10/10/24 07:47) VOMITING acetaminophen (From Percocet) Adverse Reaction (Verified 10/10/24 07:47) Vomiting apremilast (From Otezla) Adverse Reaction (Verified 10/10/24 07:47) diarrhea, nausea Medication List - Last Reconciled 10/10/24 by Kayy Aburto MD aspirin (Adult Aspirin Regimen) 81 mg PO DAILY 90 days blood sugar diagnostic ([employer] Ultra Test strips) Use 1 test strip once a day blood-glucose meter ([employer] Ultra2 Meter) As directed clobetasol 0.05% 1 appl topical BID diclofenac sodium 1% (Arthritis Pain (diclofenac)) 2 grams topical QID 30 days empagliflozin (Jardiance) 10 mg PO DAILY 90 days epinephrine IM ONCE esomeprazole magnesium DR 40 mg PO DAILY fenofibrate 54 mg PO DAILY fluticasone propion-salmeterol 115-21 mcg/actuation (Advair HFA) 2 puffs PO BID gabapentin 300 mg PO BID ipratropium bromide 2 sprays intranasal TID-QID PRN 30 days ixekizumab (Taltz Autoinjector (3 Pack)) mg subcut lancets ([employer] UltraSoft 2 Lancet) Use 1 lancet once a day levocetirizine 5 mg PO DAILY linaclotide 72 mcg PO DAILY lisinopril 5 mg PO DAILY loratadine 10 mg PO DAILY PRN lorazepam 1 mg PO TID PRN metoprolol succinate ER 50 mg PO DAILY nebulizers (Aeroneb Go Nebulizer) As directed omalizumab (Xolair) 300 mg subcut Q4W 28 days ondansetron 4 mg PO Q8H PRN paroxetine HCl 20 mg PO DAILY paroxetine HCl 10 mg PO QAM polyethylene glycol 3350 17 grams PO DAILY rosuvastatin 40 mg PO DAILY 90 days tirzepatide (Mounjaro) 10 mg (0.5 mL) subcut QWEEK 4 weeks triamcinolone acetonide 0.1% topical zolpidem 10 mg PO BEDTIME PRN Tobacco use date assessed: 06/26/24 Dental Screening Dental Screen Date: 06/26/24 HPI HPI Comments History of Present Illness Details The patient is a 59-year-old female presenting with a physical exam and management of chronic conditions. She has a history of leukemia, which is currently in remission. She underwent a hysterectomy, eliminating the need for Pap smears. The patient has cardiomyopathy with a recent echocardiogram showing an ejection fraction of 45 to 50% and reduced right ventricular systolic function. This is due to chronic systolic congestive heart failure, and catheterization showed no rmal coronary arteries. She also has a history of supraventricular tachycardia and non-ischemic cardiomyopathy with no clear cause. A Holter monitor has been ordered, and she is on CPAP for obstructive sleep apnea. The patient's microalbuminuria is elevated, and she will be referred to nephrology. She also has mild transaminitis and will follow up with gastroenterology. Her LDL cholesterol is 86 mg/dL, close to the goal of less than 70 mg/dL, and she continues on rosuvastatin. Her A1c is 7.6%, above the goal of less than 7%, and Jardiance dosage is being adjusted. The patient experiences severe depression with a PHQ-9 score of 21 and is under psychiatric care. She has environmental allergies and is being treated with loratadine. [facility] Medical History (Updated 10/10/24 @ 08:47 by Kayy Aburto MD) BRCA negative Hx of acute myeloid leukemia in remission Benign paroxysmal positional vertigo Hospital discharge follow-up Abscess Essential hypertension Diabetes mellitus Migraines Hand numbness Mild persistent asthma Impaired glucose tolerance Mild recurrent major depression Herpes simplex type 2 infection Mixed hyperlipidemia Supraventricular tachycardia Left leg pain GERD (gastroesophageal reflux disease) Insomnia Left knee pain Nausea Depression with anxiety Surgical History History of esophagogastroduodenoscopy (EGD) Hx of colonoscopy History of removal of cyst History of surgery History of total abdominal hysterectomy History of cardiac radiofrequency ablation Family History Father Brain cancer Mother Esophageal cancer Sister Breast cancer Paternal Uncle Diabetes Hypertension Sister Colon cancer, Onset Age: 63 Social History Household Members: Children Housing: House Do you presently have visiting nurse or other home services: Yes Alcohol intake: never Patient Tobacco Use Status: Never used Tobacco e-Cigarette/Vaping Use: Never Used Second Hand Smoke Exposure: No Advance Directives Date on File: 03/11/23 service: No Current occupational status: unemployed Sexual orientation: Straight/Heterosexual Gender identity: Female Cognitive needs: No Hearing needs: No Vision needs: No Female Reproductive History Menstrual Age of Menarche: 13 Questionnaire PHQ-9 Over the last 2 weeks, how often have you been bothered by any of the following problems? 1. Little interest or pleasure in doing things: not at all 2. Feeling down, depressed, or hopeless: not at all 3. Trouble falling or staying asleep, or sleeping too much: nearly every day 4. Feeling tired or having little energy: nearly every day 5. Poor appetite or overeating: nearly every day 6. Feeling bad about yourself - or that you are a failure or have let yourself or your family down: nearly every day 7. Trouble concentrating on things, such as reading the newspaper or watching television: nearly every day 8. Moving or speaking so slowly that other people could have noticed. Or the opposite - being so fidgety or restless that you have been moving around a lot more than usual: nearly every day 9. Thoughts that you would be better off or of hurting yourself in some way: nearly every day Total score: 21 Depression Screening Interpretation: Positive (no suicidal thoughts) Depression Screening Follow-up: Existing condition, In treatment, Community Mental Health Worker F/U and Follow-up Visit Requested Depression Screening Done: Yes 68430 - PHQ-9 Billing: Yes Source: Developed by Drs. Tez Bowen, Bree Perez, Cesar Gonzalez and colleagues, with an educational alexia from [employer]. Thrive Questionnaire Date Thrive assessed: 06/26/24 I am a: Patient What is your living situation today?: I have a steady place to live Within the past 12 months, did the food you bought not last and you didn't have the money to get more?: I choose not to answer this question Within the past 12 months, did you worry whether your food would run out before you got money to buy more?: I choose not to answer this question Do you have trouble paying for medicines?: No Do you have trouble getting transportation to medical appointments?: No Do you have trouble paying your heating and electricity bill?: No Do you have trouble taking care of your child, family member or friend?: No Do you have trouble with day-to-day activities such as bathing, preparing meals, shopping, managing finances, etc.?: No Are you currently unemployed and looking for a job?: Yes Are you interested in more education?: Yes Please select the resources that you would like help with: Daily support Currently or been in a relationship where the following occur: I choose not to answer THRIVE Score: 0 AUDIT C Alcohol Use Questionnaire (AUDIT-C) 1. How often do you have a drink containing alcohol?: Never Total Score: 0 Score Reviewed/Action Taken: No DICKSON-7 AMB Questionnaire DICKSON-7 Date DICKSON - 7 assessed: 10/10/24 Feeling nervous, anxious, or on edge: 3 = Nearly every day Not being able to stop or control worryin = Nearly every day Worrying too much about different things: 3 = Nearly every day Trouble relaxin = Nearly every day Being so restless that it is hard to sit still: 3 = Nearly every day Becoming easily annoyed or irritable: 0 = Not at all Feeling afraid as if something awful might happen: 3 = Nearly every day Total DICKSON-7 score (0-4 normal; 5-9 mild; 10-14 moderate; 15-21 severe): 18 Source: Developed by Drs. Tez Bowen, Bree Perez, Cesar Gonzalez and colleagues, with an educational alexia from [employer]. Review of Systems Const All systems reviewed & are unremarkable except as noted in HPI and below Card Denies chest pain at rest, Denies chest pain with activity, Denies edema, Denies irregular heart rhythm, Denies claudication, Denies dyspnea, Denies dyspnea on exertion, Denies orthopnea, Denies paroxysmal nocturnal dyspnea and Denies slow heart rate Resp Denies cough, Denies dyspnea and Denies dyspnea on exertion GI Denies abdominal pain, Denies change in bowel habits, Denies excessive flatus, Denies nausea and Denies vomiting Skin/Breast Denies bleeding lesions, Denies changing lesions and Denies rash Neuro Denies lack of coordination Physical exam (Primary Care) Vital Signs: Last Vital Signs BP 112/80 10/10/24 07:41 BMI result Body Mass Index 33.7 Tobacco/Smoking Status: Tobacco use Status Tobacco use date assessed 06/26/24 10/10/24 07:39 Patient Tobacco Use Status Never used Tobacco 10/10/24 07:39 e-Cigarette/Vaping Use Never Used 10/10/24 07:39 PHQ-9: PHQ-9 Score PHQ-9: Total score 21 10/10/24 08:13 Depression Screening Interpretation: Positive (no suicidal thoughts) Depression Screening Follow-up: Existing condition, In treatment, Community Mental Health Worker F/U and Follow-up Visit Requested Thrive Assessment: Date of Thrive Assessment Date Thrive assessed 06/26/24 10/10/24 07:39 Currently or been in a relationship where the following occur: I choose not to answer HENCO Head: Yes normal to inspection, Yes normocephalic and Yes atraumatic Ears: external ears normal Eyes General: appearance normal, both eyes and all related structures Eyelids: Yes eyelids normal Conjunctivae: conjunctivae normal Neck Neck: Yes normal visual inspection and Yes supple Resp Effort & Inspection: normal respiratory effort Auscultation: clear to auscultation bilaterally Cardio Jugular venous distension: no JVD Rate: regular rate Rhythm: regular rhythm Heart sounds: S1 normal heart sound present and S2 normal heart sound present GI Inspection: Yes normal to inspection Palpation (GI): Soft to palpation and nontender Auscultation: normal bowel sounds Skin General skin exam: no rashes or lesions noted Neuro General: no focal motor deficits Extrem General: Yes full ROM Psych Appearance: grossly normal Results AMB Hemoglobin A1c AMB Hemoglobin A1c 7.8 % Last Edit by REN Schilling on 10/10/24 07:4 8 Immunizations pneumoc 20-jocelynn conj-dip cr(PF) 0.5 mL IM syringe Performing Provider: Kayy Aburto MD Performing Location: [facility] Administered by: REN Schilling on 10/10/24 08:13 Dose Route Admin Location Dispensed Lot Number Expiration Date NDC Family Practice Doctor 0.5 mL IM Left Deltoid 0.5 mL [id number] 09/04/25 3575-9526-17 [facility] /PFIZER Total Dispensed Waste 0.5 mL 0 % VIS Given Date VIS Provided VIS Publication Date 10/10/24 Single Vaccine 24 Eligibility Eligibility Date Funding Source Not [facility] Eligible 10/10/24 Private Results Reviewed Results Reviewed: Laboratory Last Values Hgb A1c (Clinic) 7.8 % (4.0-6.0) H 10/10/24 07:37 Coding Level of Care Code Est Pt Level 3 (78156) Est Pt Prev Care 40-64y(43152) Diagnoses Physical exam Z00.00 Severe recurrent major depression without psychotic features F33.2 Cardiomyopathy I42.9 Supraventricular tachycardia I47.1 Type 2 diabetes mellitus without complication, without long-term current use of insulin E11.9 Diabetes mellitus type: type 2 Diabetes mellitus ad terminal makeup operator insulin use: without ad terminal makeup operator use Diabetes mellitus complication status: without complication Microalbuminuria R80.9 Nephrolithiasis N20.0 AML (acute myeloid leukemia) in remission C92.01 Additional Codes PHQ-9 - 13911 - PHQ-9 Billing: Yes ([id number]) Time Spent (min) 38 Assessment & Plan Assessment & Plan (1) Physical exam: Code(s): Z00.00 - Encounter for general adult medical examination without abnormal findings Category: Medical (2) Severe recurrent major depression without psychotic features: Code(s): F33.2 - Major depressive disorder, recurrent severe without psychotic features Category: Medical (3) Cardiomyopathy: Code(s): I42.9 - Cardiomyopathy, unspecified Category: Medical (4) Supraventricular tachycardia: Code(s): I47.1 - Supraventricular tachycardia Category: Medical (5) Diabetes mellitus: Code(s): E11.9 - Type 2 diabetes mellitus without complications Category: Medical Qualifiers: Diabetes mellitus type: type 2 Diabetes mellitus correction insulin use: without ad terminal makeup operator use Diabetes mellitus complication status: without complication Qualified Code(s): E11.9 - Type 2 diabetes mellitus without complications (6) Microalbuminuria: Code(s): R80.9 - Proteinuria, unspecified Category: Medical (7) Nephrolithiasis: Code(s): N20.0 - Calculus of kidney Category: Medical (8) AML (acute myeloid leukemia) in remission: Code(s): C92.01 - Acute myeloblastic leukemia, in remission Category: Medical Plan The patient will continue on rosuvastatin to manage her LDL cholesterol, which is currently at 86 mg/dL, close to the target of less than 70 mg/dL. Jardiance dosage will be increased to address her elevated A1c of 7.6%, with a goal of less than 7%. A referral to nephrology is planned due to elevated microalbuminuria, and she will follow up with gastroenterology for mild transaminitis. A Holter monitor has been ordered to evaluate her supraventricular tachycardia, and she will continue using CPAP for obstructive sleep apnea. The patient is advised to continue psychiatric care for severe depression, with a PHQ-9 score of 21, and to manage environmental allergies with loratadine. Patient was informed and verbally consented to the use of an ambient scribe for clinic note documentation during this visit. Orders: Orders Pneumococcal 20 Immunization Today Z23 - Encounter for immunization AMB Hemoglobin A1c Today E11.9 - Type 2 diabetes mellitus without complications US renal BI Today N20.0 - Calculus of kidney Referrals Nephrology Referral R80.9 - Proteinuria, unspecified Medications: New empagliflozin (Jardiance) 25 mg PO DAILY 90 tabs 1RF 90 days Refilled tirzepatide (Mounjaro) 10 mg (0.5 mL) subcut QWEEK 2 mL 0RF 4 weeks E11.9 - Type 2 diabetes mellitus without complications Discontinued empagliflozin (Jardiance) Discontinued Reason: Patient Completed Course 10 mg PO DAILY 90 days 90 tabs 0RF
[2024-10-10 07:41] VITALS: BP 112/80; BMI 33.7
== END 2024-10-10 08:12 | disposition home or self-care (01) ==
LOC: HO.HMCH 07:18
PROVIDERS: PCP Internal Medicine; Visit Provider Internal Medicine
DX: Z00.00 Encounter for general adult medical examination without abnormal findings (principal); E11.9 Type 2 diabetes mellitus without complications; F33.2 Major depressive disorder, recurrent severe without psychotic features; I42.9 Cardiomyopathy, unspecified; I47.10 Supraventricular tachycardia, unspecified; R80.9 Proteinuria, unspecified; N20.0 Calculus of kidney; C92.01 Acute myeloblastic leukemia, in remission; Z23 Encounter for immunization

== ENCOUNTER → 2024-10-10 07:17 | Outpatient (BNVA) | payer OTHER, SELFPAY | PROVIDERS: PCP Internal Medicine; Visit Provider Internal Medicine | DX: Z00.00 Encounter for general adult medical examination without abnormal findings (principal); I42.9 Cardiomyopathy, unspecified; G47.33 Obstructive sleep apnea (adult) (pediatric); C92.01 Acute myeloblastic leukemia, in remission; R80.9 Proteinuria, unspecified; F33.2 Major depressive disorder, recurrent severe without psychotic features; I47.0 Re-entry ventricular arrhythmia; I47.10 Supraventricular tachycardia, unspecified; E11.9 Type 2 diabetes mellitus without complications; N20.0 Calculus of kidney; Z99.89 Dependence on other enabling machines and devices | CPT/HCPCS: 83036; 90471; 90677; 96127; 99212; 99396 ==

== ENCOUNTER → 2024-10-25 08:26 | Outpatient (REF) | payer OTHER, SELFPAY ==
--- NOTE | 2024-10-25 08:28 | HM_ITS ---
* Total monitoring time 3 days. * Underlying rhythm is sinus with an average rate of 98/Min. About 34% of the time, rate > 100/Min. * Rare supraventricular ectopy. * Rare ventricular ectopy. * No significant pauses or high-grade AV blocks. * Patient marker used with sinus rhythm. * No diary events. MTDD
== END ==
LOC: HO.CARD 08:26
PROVIDERS: PCP Internal Medicine; Visit Provider Nurse Practitioner Family
DX: R00.2 Palpitations (principal)
CPT/HCPCS: 93242

== ENCOUNTER → 2024-10-25 08:28 | Outpatient (BNV) | payer OTHER, SELFPAY | PROVIDERS: PCP Internal Medicine; Visit Provider Internal Medicine | DX: I47.10 Supraventricular tachycardia, unspecified (principal); I49.3 Ventricular premature depolarization | CPT/HCPCS: 93244 ==

== ENCOUNTER 2024-11-01 23:36 | Emergency (ER) | payer OTHER, SELFPAY ==
--- NOTE | ~2024-11-01 | US_ITS ---
EXAMINATION: US LOWER EXTREMITY VEINS LIMITED FOLLOW UP RIGHT HISTORY: leg pain ? DVT COMPARISON: There are no prior studies available for comparison. TECHNIQUE: Duplex and color Doppler sonographic examination of the deep venous system of the right lower extremity was performed. FINDINGS: The common femoral, superficial femoral, and popliteal veins are patent demonstrating normal compressibility, spontaneous flow, and augmentation. There is a normal color and spectral Doppler waveform appearance of the visualized deep venous system above the knee. The posterior tibial and peroneal veins are patent. US/US venous duplex LE RT IMPRESSION: No evidence of acute DVT in the right lower extremity. Electronically signed by: Tez Kauffman MD 11/02/2024 09:16 AM EDT
[2024-11-02 00:15] VITALS: BP 134/94; PULSE 82; RESP 18; TEMP 36.6; O2SAT 97; BMI 33.5
--- NOTE | 2024-11-02 02:03 | ED.GENADULT ---
HPI - General Adult General Chief complaint: Extremity Problem Stated complaint: Right sided pain Time Seen by Provider: 11/02/24 02:03 History of Present Illness ED Provider: Nick BELTRAN narrative: The patient is 59-year-old woman who says that she has had pain in her right upper thigh that began this morning and has been getting worse throughout the day. She believes that the problem is the veins of the skin of the right proximal medial thigh. She says that she has a history of thrombophlebitis which was diagnosed in [place]. She thinks this might be the same problem. She denies any injury or trauma. No fever, sweats, chills. No abdominal pain, nausea, vomiting. No chest pain or shortness of breath. Related Data Home Medications ?Medication ?Instructions ?Recorded ?Confirmed lorazepam 1 mg tablet 1 mg PO TID PRN Anxiety 02/13/20 10/10/24 zolpidem 10 mg tablet 10 mg PO BEDTIME PRN Insomnia 02/13/20 10/10/24 fluticasone propionate 115 2 puff PO BID 05/06/21 10/10/24 mcg-salmeterol 21 mcg/actuation HFA inhaler (Advair HFA) loratadine 10 mg tablet 10 mg PO DAILY PRN Allergy Symptoms 08/09/22 10/10/24 paroxetine HCl 10 mg tablet 10 mg PO QAM 08/09/22 10/10/24 triamcinolone acetonide 0.1 % topical 06/20/23 10/10/24 topical ointment paroxetine HCl 40 mg tablet 20 mg PO DAILY 06/30/23 10/10/24 clobetasol 0.05 % topical ointment 1 appl topical BID 07/03/24 10/10/24 ixekizumab 80 mg/mL subcutaneous mg subcut 07/03/24 10/10/24 auto-injector ([employer] Autoinjector (3 Pack)) epinephrine 0.3 mg/0.3 mL IM ONCE 10/09/24 10/10/24 injection, auto-injector gabapentin 300 mg capsule 300 mg PO BID 10/09/24 10/10/24 levocetirizine 5 mg tablet 5 mg PO DAILY 10/09/24 10/10/24 Previous Rx's ?Medication ?Instructions ?Recorded nebulizers (Aeroneb Go Nebulizer) #1 ea 02/05/21 ipratropium bromide 42 mcg (0.06 2 spray intranasal TID-QID PRN 07/09/22 %) nasal spray allergy symptoms 30 days #15 mL blood sugar diagnostic (OneTouch #100 ea 12/23/22 Ultra Test strips) blood-glucose meter (OneTouch #1 ea 12/23/22 Ultra2 Meter) lancets 30 gauge (OneTouch #100 ea 12/23/22 UltraSoft 2 Lancet) omalizumab 150 mg subcutaneous 300 mg subcut Q4W 28 days #1 ea 06/16/23 solution (Xolair) metoprolol succinate 50 mg 50 mg PO DAILY #90 tabs 11/18/23 tablet,extended release 24 hr esomeprazole magnesium 40 mg 40 mg PO DAILY #30 ea 06/18/24 granules delayed release for susp linaclotide 72 mcg capsule 72 mcg PO DAILY #30 caps 06/18/24 ondansetron 4 mg disintegrating 4 mg PO Q8H PRN for 06/20/24 tablet nausea/vomiting #10 tabs diclofenac sodium 1 % topical gel 2 g topical QID 30 days #100 grams 06/26/24 (Arthritis Pain (diclofenac)) aspirin 81 mg tablet,delayed 81 mg PO DAILY 90 days #90 tabs 08/19/24 release (Adult Aspirin Regimen) polyethylene glycol 3350 17 17 g PO DAILY #510 grams 09/05/24 gram/dose oral powder fenofibrate 54 mg tablet 54 mg PO DAILY #90 tabs 09/10/24 rosuvastatin 40 mg tablet 40 mg PO DAILY 90 days #90 tabs 09/10/24 lisinopril 5 mg tablet 5 mg PO DAILY #30 tabs 10/09/24 empagliflozin 25 mg tablet 25 mg PO DAILY 90 days #90 tabs 10/10/24 (Jardiance) tirzepatide 10 mg/0.5 mL 10 mg (0.5 mL) subcut QWEEK 4 10/12/24 subcutaneous pen injector weeks #2 mL (Mounjaro) acetaminophen 500 mg capsule 1,000 mg (2 x 500 mg) PO Q8H PRN 11/02/24 fever or pain #14 caps ibuprofen 400 mg tablet 400 mg PO Q6H PRN pain #14 tabs 11/02/24 Allergies Allergy/AdvReac Type Severity Reaction Status Date / Time bee pollen (BEE STINGS) Allergy Intermediate RASH Verified 11/02/24 00:18 SWELLING PAIN FULL. phentermine Allergy Intermediate ANXIETY Verified 11/02/24 00:18 tramadol Allergy Intermediate stomach Verified 11/02/24 00:18 upset adhesive tape (ADHESIVE TAPE) Allergy Mild RASH Verified 11/02/24 00:18 oxycodone (OXYCODONE) AdvReac Intermediate VOMITING Verified 11/02/24 00:18 acetaminophen (From Percocet) AdvReac Vomiting Verified 11/02/24 00:18 apremilast (From Otezla) AdvReac diarrhea, Verified 11/02/24 00:18 nausea Review of Systems Review of Systems: Yes all other systems are reviewed and are negative [facility] Past Medical History Medical History (Updated 11/02/24 @ 09:28 by Kang Romero MD) BRCA negative Hx of acute myeloid leukemia in remission Benign paroxysmal positional vertigo Hospital discharge follow-up Abscess Essential hypertension Diabetes mellitus Migraines Hand numbness Mild persistent asthma Impaired glucose tolerance Mild recurrent major depression Herpes simplex type 2 infection Mixed hyperlipidemia Supraventricular tachycardia Left leg pain GERD (gastroesophageal reflux disease) Insomnia Left knee pain Nausea Depression with anxiety Surgical History History of esophagogastroduodenoscopy (EGD) Hx of colonoscopy History of removal of cyst History of surgery History of total abdominal hysterectomy History of cardiac radiofrequency ablation Family History Family History Father Brain cancer Mother Esophageal cancer Sister Breast cancer Paternal Uncle Diabetes Hypertension Sister Colon cancer, Onset Age: 63 Social History Social History Household Members: Children Housing: House Do you presently have visiting nurse or other home services: Yes Unable to assess alcohol history related to: Unable to respond Alcohol intake: never Patient Tobacco Use Status: Never used Tobacco e-Cigarette/Vaping Use: Never Used Second Hand Smoke Exposure: No Advance Directives Date on File: 03/11/23 service: No Current occupational status: unemployed Sexual orientation: Straight/Heterosexual Gender identity: Female Cognitive needs: No Hearing needs: No Vision needs: No Physical Exam ED Vital Signs: Vital Signs - 24 hr 11/02/24 00:15 11/02/24 03:45 11/02/24 06:00 Temperature 97.8 F 97.8 F 98.4 F Pulse Rate 82 84 80 Respiratory Rate 18 16 16 Blood Pressure 134/94 H 140/91 H 144/93 H Pulse Oximetry 97 98 97 Oxygen Delivery Method Room Air Room Air Room Air 11/02/24 08:00 11/02/24 10:06 Temperature 97.9 F 0 F L Pulse Rate 88 83 Respiratory Rate 20 16 Blood Pressure 132/79 131/83 Pulse Oximetry 96 94 Oxygen Delivery Method Room Air Room Air BMI result Body Mass Index 33.5 Const Other: The patient was awake and alert. She was lying supine on the stretcher with the right leg externally rotated. She said that she was very uncomfortable. Orientation/consciousness: patient oriented x3 HENMT Other: The face is symmetrical. Mucous membranes moist. Eyes Other: Pupils are round equal, conjunctivae are clear, extraocular movements intact Neck Neck: Yes normal visual inspection and Yes full ROM Resp Effort & Inspection: normal respiratory effort Auscultation: clear to auscultation bilaterally Cardio Rate: regular rate Rhythm: regular rhythm Heart sounds: S1 normal heart sound present and S2 normal heart sound present GI Other: The abdomen is soft and nontender Skin Other: The skin is dry and unremarkable. The skin of the medial right thigh in the region of the patient's discomfort is unremarkable to inspection. No remarkable varicose veins or other obvious abnormalities. No redness to the skin. No warmth. Neuro General: patient oriented x3, gait normal, tone normal, moves all extremities, no focal motor deficits and CN's II-XI intact bilaterally Extrem Other: The patient indicates that she has a great deal of discomfort in the medial proximal thigh. The region of pain is unremarkable to inspection. She moves her joints in the right leg normally. When I palpate the area of pain in the medial proximal thigh I do not appreciate any fluctuance or other significant abnormality. She has good pulses in the feet. There was no peripheral edema. No calf swelling or tenderness. No masses. Aside from tenderness in the area of the medial proximal thigh I do not appreciate any significant abnormality to the leg. Medications Administered Discontinued Medications Generic Name Dose Route Start Last Admin Trade Name Freq PRN Reason Stop Dose Admin Acetaminophen 975 mg 11/02/24 02:11 11/02/24 02:22 Acetaminophen 325 Mg Tablet PO 11/02/24 02:12 975 mg ONCE ONE Administration Ketorolac Tromethamine 30 mg 11/02/24 02:11 11/02/24 02:23 Ketorolac Tromethamine 30 Mg/Ml Vial IM 11/02/24 02:12 30 mg ONCE ONE Administration Medical Decision Making Medical Decision Making [facility] Narrative: The patient is a 59-year-old woman who looked somewhat uncomfortable and said she was having a great deal of pain in her medial proximal thigh that she felt was similar to something that she had several years ago which may have been thrombophlebitis in her left leg. She says this was managed in [place]. She is afebrile with a normal heart rate. I do not appreciate any definite signs of thrombophlebitis to the skin of the right thigh. Overall I felt her exam was not really consistent with her apparent degree of discomfort. She has good pulses in the feet. She is able to move her hips and knees well. Labs show an unremarkable white count, differential, and CRP. My suspicion for an infectious process is very low. A CPK is normal. D-dimer is normal. A DVT ultrasound of the leg is unremarkable. My overall impression is that I do not have a good explanation for the patient's pain but I do not think she has a an acutely dangerous process. She was treated with ketorolac and acetaminophen and will be discharged with a prescriptions for ibuprofen and acetaminophen. She should follow up with her PCP. Lab Data 11/02/24 02:24 11/02/24 02:24 Labs: Lab Results 11/02/24 Range/Units 02:24 WBC 8.2 (4.8-10.8) X10*3/uL RBC 5.37 (4.20-5.50) X10*6/uL Hgb 16.1 H (12.0-16.0) g/dl Hct 46.5 (37.0-47.0) % MCV 86.6 (80.0-98.0) fL MCH 30.0 (27.0-33.0) pg MCHC 34.6 (31.0-35.0) g/dl RDW 13.5 (11.0-16.0) % Plt Count 293 (160-400) X10*3/uL MPV 8.6 L (9.4-12.3) fL Immature Gran % (Auto) 0.2 (0.0-0.4) % Neut % (Auto) 48.5 (45-73) % Lymph % (Auto) 38.8 (20-40) % Dewitt % (Auto) 9.8 (2-11) % Eos % (Auto) 2.2 (0-4) % Baso % (Auto) 0.5 (0-2) % Lymph # (Auto) 3.2 (1.2-4.9) X10*3/uL Dewitt # (Auto) 0.8 (0.1-1.2) X10*3/uL Eos # (Auto) 0.2 (0.0-0.4) X10*3/uL Baso # (Auto) 0.0 (0.0-0.2) X10*3/uL Abs Immat Gran (auto) 0.02 (0.00-0.03) X10*3/uL Absolute Neuts (auto) 4.0 (2.0-8.3) x10*3/uL Absolute Nucleated RBC 0.000 (0.0-0.012) X10*3/uL Nucleated RBC % (auto) 0.0 (0.0-0.2) /100WBC D-Dimer High Sensitivty 211 NG/ML Sodium 141 (135-145) mmol/L Potassium 3.2 L (3.3-5.1) mmol/L Chloride 106 (96-108) mmol/L Carbon Dioxide 22 (22-29) mmol/L Anion Gap 16 (12-20) BUN 11 (9-16) mg/dL Creatinine 0.63 (0.5-1.4) mg/dL Estim Creat Clear Calc 116.5 Estimated GFR > 60 Random Glucose 128 H (60-115) mg/dL Calcium 11.3 H D (8.4-10.2) mg/dL Total Bilirubin 0.8 (0.0-1.0) mg/dL Direct Bilirubin 0.2 (0.0-0.5) mg/dL AST 27 (5-31) U/L ALT 28 (0-31) U/L Alkaline Phosphatase 76 (39-117) U/L Total Creatine Kinase 110 (26-140) U/L C-Reactive Protein 0.22 (< or = 0.50) mg/dL Total Protein 7.1 (6.5-8.0) g/dL Albumin 4.6 (3.5-5.0) g/dL Discharge Plan Discharge Clinical Impression: Acute pain of right thigh Patient Disposition: Home, Self-Care Additional Instructions: Your testing today seems very reassuring. There was no sign of a blood clot in your leg. There was no suggestion of an infection. My suspicion for a dangerous process is very low. Please do your best to manage your pain with ibuprofen and acetaminophen as prescribed. Rest and take it easy over the weekend. Please contact your regular doctor's office today for a follow up appointment next week to discuss your symptoms further. Return to the emergency room if significantly worse. Prescriptions: New ibuprofen 400 mg tablet 400 mg PO Q6H PRN (Reason: pain) Qty: 14 0RF acetaminophen 500 mg capsule 1,000 mg PO Q8H PRN (Reason: fever or pain) Qty: 14 0RF No Action (DME) Aeroneb Go Nebulizer Misc See Rx Instructions .Route Qty: 1 0RF Rx Instructions: As directed (DME) blood-glucose meter [OneTouch Ultra2 Meter] Misc See Rx Instructions .Route Qty: 1 0RF Rx Instructions: As directed (DME) OneTouch Ultra Test Strip See Rx Instructions .Route Qty: 100 3RF Rx Instructions: Use 1 test strip once a day (DME) lancets [OneTouch UltraSoft 2 Lancet] 30 gauge misc See Rx Instructions .Route Qty: 100 3RF Rx Instructions: Use 1 lancet once a day Xolair 150 mg recon soln 300 mg subcut Q4W 28 Days Qty: 1 12RF Rx Instructions: requires multiple injection sites; do not exceed 150 mg per injection site ondansetron 4 mg tablet,disintegrating 4 mg PO Q8H PRN (Reason: for nausea/vomiting) Qty: 10 0RF aspirin [Adult Aspirin Regimen] 81 mg tablet,delayed release (DR/EC) 81 mg PO DAILY 90 Days Qty: 90 0RF polyethylene glycol 3350 17 gram/dose powder 17 g PO DAILY Qty: 510 0RF fenofibrate 54 mg tablet 54 mg PO DAILY Qty: 90 0RF rosuvastatin 40 mg tablet 40 mg PO DAILY 90 Days Qty: 90 1RF Mounjaro 10 mg/0.5 mL pen injector 10 mg subcut QWEEK 28 Days Qty: 2 0RF paroxetine HCl 40 mg tablet 20 mg PO DAILY lorazepam 1 mg tablet 1 mg PO TID PRN (Reason: Anxiety) zolpidem 10 mg tablet 10 mg PO BEDTIME PRN (Reason: Insomnia) Advair HFA 115-21 mcg/actuation HFA aerosol inhaler 2 puff PO BID triamcinolone acetonide 0.1 % ointment topical paroxetine HCl 10 mg tablet 10 mg PO QAM loratadine 10 mg tablet 10 mg PO DAILY PRN (Reason: Allergy Symptoms) ipratropium bromide 42 mcg (0.06 %) spray,non-aerosol 2 spray intranasal TID-QID PRN (Reason: allergy symptoms) 30 Days Qty: 15 6RF Rx Instructions: administer into each nostril metoprolol succinate 50 mg tablet extended release 24 hr 50 mg PO DAILY Qty: 90 3RF Rx Instructions: dose increased linaclotide 72 mcg capsule 72 mcg PO DAILY Qty: 30 3RF esomeprazole magnesium [address] for susp in packet 40 mg PO DAILY Qty: 30 2RF diclofenac sodium [Arthritis Pain (diclofenac)] 1 % gel 2 g topical QID 30 Days Qty: 100 1RF Rx Instructions: apply to single elbow, wrist or hand; for hand includes palm/fingers/back of hand clobetasol 0.05 % ointment 1 appl topical BID Taltz Autoinjector (3 Pack) 80 mg/mL auto-injector subcut Jardiance 25 mg tablet 25 mg PO DAILY 90 Days Qty: 90 1RF gabapentin 300 mg capsule 300 mg PO BID epinephrine 0.3 mg/0.3 mL auto-injector IM ONCE levocetirizine 5 mg tablet 5 mg PO DAILY lisinopril 5 mg tablet 5 mg PO DAILY Qty: 30 5RF Rx Instructions: New Interventions: ED Discharge Assessment Last Done: 11/02/24 10:06 Discharge Date/Time: 11/02/24 10:07 Print Language: Guatemalan
[2024-11-02 02:48] LABS: Hematocrit 46.5 % (37.0-47.0); Hemoglobin 16.1 g/dl (12.0-16.0); Imm Gran Abs Auto 0.02 X10*3/uL (0.00-0.03); Imm Gran Pct Auto 0.2 % (0.0-0.4); Lymphocytes Absolute Auto 3.2 X10*3/uL (1.2-4.9); MANUAL DIFF FLAG NO; Mean Corpuscular HGB Conc 34.6 g/dl (31.0-35.0); Mean Corpuscular Hemoglobin 30.0 pg (27.0-33.0); Mean Corpuscular Volume 86.6 fL (80.0-98.0); NRBC Abs Auto 0.000 X10*3/uL (0.0-0.012); NRBC Pct Auto 0.0 /100WBC (0.0-0.2); Platelet Count 293 X10*3/uL (160-400); Red Blood Count 5.37 X10*6/uL (4.20-5.50); White Blood Count 8.2 X10*3/uL (4.8-10.8)
[2024-11-02 03:00] LABS: D Dimer High Sensitivity 211 NG/ML
[2024-11-02 03:02] LABS: Alanine Aminotransferase 28 U/L (0-31); Albumin Level 4.6 g/dL (3.5-5.0); Alkaline Phosphatase 76 U/L (39-117); Anion Gap 16 (12-20); Aspartate Amino Transferase 27 U/L (5-31); Blood Urea Nitrogen 11 mg/dL (9-16); Calcium 11.3 mg/dL (8.4-10.2); Carbon Dioxide 22 mmol/L (22-29); Chloride 106 mmol/L (96-108); Creatinine Clr Calc Pharmacy 116.5; Estimated Glomerular Filt Rate > 60; Potassium 3.2 mmol/L (3.3-5.1); Sodium 141 mmol/L (135-145); Total Protein 7.1 g/dL (6.5-8.0)
[2024-11-02 03:45] VITALS: BP 140/91; PULSE 84; RESP 16; TEMP 36.6; O2SAT 98
[2024-11-02 06:00] VITALS: BP 144/93; PULSE 80; RESP 16; TEMP 36.9; O2SAT 97
[2024-11-02 08:00] VITALS: BP 132/79; PULSE 88; RESP 20; TEMP 36.6; O2SAT 96
[2024-11-02 10:06] VITALS: BP 131/83; PULSE 83; RESP 16; TEMP -17.7; TEMP 0; O2SAT 94
== END 2024-11-02 10:07 | disposition home or self-care (01) ==
PROVIDERS: Emergency Provider Emergency Medicine
DX: M79.651 Pain in right thigh (principal); I80.9 Phlebitis and thrombophlebitis of unspecified site
CPT/HCPCS: 36415; 80048; 80076; 82550; 85025; 85379; 86140; 93971; 96372; 99284; J1885

== ENCOUNTER → 2024-11-02 05:11 | Outpatient (BNV) | payer OTHER, SELFPAY | PROVIDERS: Emergency Provider Emergency Medicine; Visit Provider Radiology Diagnostic Radiology | DX: M79.661 Pain in right lower leg (principal) | CPT/HCPCS: 93971 ==

== ENCOUNTER 2024-11-09 11:15 | Outpatient (AMB) | payer OTHER, SELFPAY ==
--- NOTE | 2024-11-09 11:20 | A.OFFPC_ITS ---
Vital Signs 3 11/09/24 11:21 Height 5 ft 7 in Weight 214 lb 8 oz BMI 33.6 BP 130/70 Blood Pressure Location Lt brachial Position Sitting Pulse 88 Pulse Source Pulse Oximeter Temp 97.3 F Temp Source Temporal Artery Scan Pulse Oximetry (%) 97 Oxygen Delivery Method Room Air Intake Visit Reasons: RT side pain due to inflamed veins Intake Note: Patient is here to follow up on right leg inner thigh pain due to inflamed veins. Plate Worker Required: Yes Plate Worker Language: [place] Drill Operator Name: Alix ([id number]) Information Interpreted: non-clinical & clinical [employer] Reader: Present Accompanied by: Daughter Allergies bee pollen (BEE STINGS) Allergy (Intermediate, Verified 11/09/24 11:21) RASH SWELLING PAIN FULL. phentermine Allergy (Intermediate, Verified 11/09/24 11:21) ANXIETY tramadol Allergy (Intermediate, Verified 11/09/24 11:21) stomach upset adhesive tape (ADHESIVE TAPE) Allergy (Mild, Verified 11/09/24 11:21) RASH oxycodone (OXYCODONE) Adverse Reaction (Intermediate, Verified 11/09/24 11:21) VOMITING acetaminophen (From Percocet) Adverse Reaction (Verified 11/09/24 11:21) Vomiting apremilast (From Otezla) Adverse Reaction (Verified 11/09/24 11:21) diarrhea, nausea Tobacco use date assessed: 11/09/24 Dental Screening Dental Screen Date: 06/26/24 HPI HPI Comments 2 History of Present Illness0 Details 59 y/o Female patient who presents to [facility] clinic today for EDF. Pt was Admitted at [facility] on 11/02/24 for an evaluation and treatment of Acute Pain on Medial proximal Thigh. Pt has h/o Varicose Veins right Upper Thigh. She was seen and evaluated by Vascular Surgery 2 years ago - where they did Vein Stripping procedure. Pt asking for Referral back to Vascular Surgery. [facility] Medical History (Updated 11/09/24 @ 11:51 by Kendal Nassar NP) Varicose veins of both lower extremities BRCA negative Hx of acute myeloid leukemia in remission Benign paroxysmal positional vertigo Hospital discharge follow-up Abscess Essential hypertension Diabetes mellitus Migraines Hand numbness Mild persistent asthma Impaired glucose tolerance Mild recurrent major depression Herpes simplex type 2 infection Mixed hyperlipidemia Supraventricular tachycardia Left leg pain GERD (gastroesophageal reflux disease) Insomnia Left knee pain Nausea Depression with anxiety Surgical History (Updated 11/09/24 @ 11:27 by REN Lu) History of cardiac catheterization History of esophagogastroduodenoscopy (EGD) Hx of colonoscopy History of removal of cyst History of surgery History of total abdominal hysterectomy History of cardiac radiofrequency ablation Family History Father Brain cancer Mother Esophageal cancer Sister Breast cancer Paternal Uncle Diabetes Hypertension Sister Colon cancer, Onset Age: 63 Social History Household Members: Children Housing: House Do you presently have visiting nurse or other home services: Yes Unable to assess alcohol history related to: Unable to respond Alcohol intake: never Patient Tobacco Use Status: Never used Tobacco e-Cigarette/Vaping Use: Never Used Second Hand Smoke Exposure: No Advance Directives Date on File: 03/11/23 service: No Current occupational status: unemployed Sexual orientation: Straight/Heterosexual Gender identity: Female Cognitive needs: No Hearing needs: No Vision needs: No Female Reproductive History Menstrual Age of Menarche: 13 Questionnaire Thrive Questionnaire Date Thrive assessed: 10/10/24 I am a: Patient What is your living situation today?: I have a steady place to live Within the past 12 months, did the food you bought not last and you didn't have the money to get more?: I choose not to answer this question Within the past 12 months, did you worry whether your food would run out before you got money to buy more?: I choose not to answer this question Do you have trouble paying for medicines?: No Do you have trouble getting transportation to medical appointments?: No Do you have trouble paying your heating and electricity bill?: No Do you have trouble taking care of your child, family member or friend?: No Do you have trouble with day-to-day activities such as bathing, preparing meals, shopping, managing finances, etc.?: No Are you currently unemployed and looking for a job?: Yes Are you interested in more education?: Yes Please select the resources that you would like help with: Daily support Currently or been in a relationship where the following occur: I choose not to answer THRIVE Score: 0 DICKSON-7 AMB Questionnaire DICKSON-7 Date DICKSON - 7 assessed: 10/10/24 Source: Developed by Drs. Tez Bowen, Bree Perez, Cesar Gonzalez and colleagues, with an educational alexia from [email or web address]. Review of Systems Const All systems reviewed & are unremarkable except as noted in HPI and below Physical exam (Primary Care) Vital Signs: Last Vital Signs Temp 97.3 F 11/09/24 11:21 Pulse 88 11/09/24 11:21 BP 130/70 11/09/24 11:21 Pulse Ox 97 11/09/24 11:21 Oxygen Delivery Method Room Air 11/09/24 11:21 BMI result Body Mass Index 33.6 Tobacco/Smoking Status: Tobacco use Status Tobacco use date assessed 11/09/24 11/09/24 11:28 Patient Tobacco Use Status Never used Tobacco 11/09/24 11:28 e-Cigarette/Vaping Use Never Used 11/09/24 11:28 Thrive Assessment: Date of Thrive Assessment Date Thrive assessed 10/10/24 11/09/24 11:28 Currently or been in a relationship where the following occur: I choose not to answer Const General: no acute distress Orientation/consciousness: patient oriented x3 Resp Effort & Inspection: normal respiratory effort Auscultation: clear to auscultation bilaterally Cardio Heart sounds: S1 normal heart sound present and S2 normal heart sound present Neuro General: patient oriented x3, gait normal and moves all extremities Extrem Knee images: 2 1. Varicose Veins present. Psych Speech and movement: Normal speech and movement present Coding Level of Care Code Est Pt Level 4 (08858) Diagnoses Varicose veins of both lower extremities I83.93 Time Spent (min) 20 Assessment & Plan Assessment & Plan (1) Varicose veins of both lower extremities: Code(s): I83.93 - Asymptomatic varicose veins of bilateral lower extremities Category: Medical Plan: Placed Referral to Vascular Surgery. Orders: Referrals 2 Vascular Surgery Referral I83.93 - Asymptomatic varicose veins of bilateral lower extremities
[2024-11-09 11:21] VITALS: BP 130/70; PULSE 88; TEMP 36.3; O2SAT 97; BMI 33.6
== END 2024-11-09 11:37 | disposition home or self-care (01) ==
LOC: HO.HMCH 11:16
PROVIDERS: PCP Internal Medicine; Visit Provider Nurse Practitioner Family
DX: I83.93 Asymptomatic varicose veins of bilateral lower extremities (principal)

== ENCOUNTER → 2024-11-09 11:15 | Outpatient (BNVA) | payer OTHER, SELFPAY | PROVIDERS: PCP Internal Medicine; Visit Provider Nurse Practitioner Family | DX: I83.93 Asymptomatic varicose veins of bilateral lower extremities (principal) | CPT/HCPCS: 99212 ==

== ENCOUNTER 2024-11-15 13:21 | Outpatient (AMB) | payer OTHER, SELFPAY ==
[2024-11-15 13:27] VITALS: BP 110/74; PULSE 103; O2SAT 97; BMI 34.0
--- NOTE | 2024-11-15 13:27 | HO.NEPHOV ---
Vital Signs 11/15/24 13:27 Height 5 ft 7 in Weight 217 lb BMI 34.0 BP 110/74 Blood Pressure Location Lt brachial Position Sitting Pulse 103 H Pulse Source Pulse Oximeter Pulse Oximetry (%) 97 Oxygen Delivery Method Room Air Intake Visit Reasons: INP: Proteinuria-LVM Green Chain Marker Required: Yes Green Chain Marker Name: Sanjay [id number] Accompanied by: OYSTER BUYER Allergies bee pollen (BEE STINGS) Allergy (Intermediate, Verified 11/15/24 13:29) RASH SWELLING PAIN FULL. phentermine Allergy (Intermediate, Verified 11/15/24 13:29) ANXIETY tramadol Allergy (Intermediate, Verified 11/15/24 13:29) stomach upset adhesive tape (ADHESIVE TAPE) Allergy (Mild, Verified 11/15/24 13:29) RASH oxycodone (OXYCODONE) Adverse Reaction (Intermediate, Verified 11/15/24 13:29) VOMITING acetaminophen (From Percocet) Adverse Reaction (Verified 11/15/24 13:29) Vomiting apremilast (From Otezla) Adverse Reaction (Verified 11/15/24 13:29) diarrhea, nausea Medication List - Last Reconciled 11/15/24 by Isaiah Gonzalez MD acetaminophen 1,000 mg (2 x 500 mg) PO Q8H PRN aspirin (Adult Aspirin Regimen) 81 mg PO DAILY 90 days blood sugar diagnostic ([employer] Ultra Test strips) Use 1 test strip once a day blood-glucose meter ([employer] Ultra2 Meter) As directed clobetasol 0.05% 1 appl topical BID cyclobenzaprine 10 mg PO TID diclofenac sodium 1% (Arthritis Pain (diclofenac)) 2 grams topical QID 30 days empagliflozin (Jardiance) 25 mg PO DAILY 90 days epinephrine IM ONCE esomeprazole magnesium DR 40 mg PO DAILY fenofibrate 54 mg PO DAILY fluticasone propion-salmeterol 115-21 mcg/actuation (Advair HFA) 2 puffs PO BID gabapentin 300 mg PO BID ibuprofen 400 mg PO Q6H PRN ipratropium bromide 2 sprays intranasal TID-QID PRN 30 days ixekizumab (Taltz Autoinjector (3 Pack)) mg subcut lancets ([employer] UltraSoft 2 Lancet) Use 1 lancet once a day levocetirizine 5 mg PO DAILY linaclotide 72 mcg PO DAILY lisinopril 5 mg PO DAILY loratadine 10 mg PO DAILY PRN lorazepam 1 mg PO TID PRN meclizine 25 mg PO BID PRN meclizine 25 mg PO DAILY PRN metoprolol succinate ER 50 mg PO DAILY nebulizers (Aerone[employer] Go Nebulizer) As directed omalizumab (Xolair) 300 mg subcut Q4W 28 days ondansetron 4 mg PO Q8H PRN paroxetine HCl 20 mg PO DAILY paroxetine HCl 10 mg PO QAM polyethylene glycol 3350 17 grams PO DAILY rosuvastatin 40 mg PO DAILY 90 days tirzepatide (Mounjaro) 10 mg (0.5 mL) subcut QWEEK 4 weeks topiramate XR 100 mg PO DAILY triamcinolone acetonide 0.1% topical zolpidem 10 mg PO BEDTIME PRN HPI Comments Details: Pleasant 59-year-old woman referred for evaluation of proteinuria. She has a history of diabetes mellitus for the last few years. History of longstanding hypertension obesity. She is currently on Mounjaro and lost some weight. She used to be around 240 lb and currently at 217 lb. She has essentially normal renal function. Urine protein creatinine ratio was around 250 mg and hence this evaluation. She has a history of cardiomyopathy. Status post ablation in the history of supraventricular tachycardia. [facility] Medical History (Updated 11/15/24 @ 13:51 by Isaiah Gonzalez MD) Varicose veins of both lower extremities BRCA negative Hx of acute myeloid leukemia in remission Benign paroxysmal positional vertigo Hospital discharge follow-up Abscess Essential hypertension Diabetes mellitus Migraines Hand numbness Mild persistent asthma Impaired glucose tolerance Mild recurrent major depression Herpes simplex type 2 infection Mixed hyperlipidemia Supraventricular tachycardia Left leg pain GERD (gastroesophageal reflux disease) Insomnia Left knee pain Nausea Depression with anxiety Surgical History History of cardiac catheterization History of esophagogastroduodenoscopy (EGD) Hx of colonoscopy History of removal of cyst History of surgery History of total abdominal hysterectomy History of cardiac radiofrequency ablation Family History Father Brain cancer Mother Esophageal cancer Sister Breast cancer Paternal Uncle Diabetes Hypertension Sister Colon cancer, Onset Age: 63 Social History Household Members: Children Housing: House Do you presently have visiting nurse or other home services: Yes Unable to assess alcohol history related to: Unable to respond Alcohol intake: never Patient Tobacco Use Status: Never used Tobacco e-Cigarette/Vaping Use: Never Used Second Hand Smoke Exposure: No Advance Directives Date on File: 03/11/23 service: No Current occupational status: unemployed Sexual orientation: Straight/Heterosexual Gender identity: Female Cognitive needs: No Hearing needs: No Vision needs: No Female Reproductive History Menstrual Age of Menarche: 13 Review of Systems Const Denies anorexia, Denies fever(s) and Denies weakness Eyes Denies blurry vision Card Denies no additional complaints and Denies dyspnea Resp Reports no additional complaints, Reports cough and Denies dyspnea GI Denies melena and Denies diarrhea Denies hematuria Musc Denies tingling Skin/Breast Denies rash Neuro Denies focal weakness, Denies tingling, Denies tremor(s) and Denies weakness Physical Exam Vital Signs: Last Vital Signs Pulse 103 H 11/15/24 13:27 BP 110/74 11/15/24 13:27 Pulse Ox 97 11/15/24 13:27 Oxygen Delivery Method Room Air 11/15/24 13:27 BMI result Body Mass Index 34.0 Comfortable Neck supple no JVD. Lungs entry equal no rales. Heart S1-S2 heard no gallop or rub. Abdomen soft nontender. Neuro alert awake oriented. No asterixis. Extremities no edema. Results Reviewed Nephrology Results: Hgb, (12.0-16.0) 16.1 g/dl H 11/02/24 WBC, (4.8-10.8) 8.2 X10*3/uL 11/02/24 Plt Count, (160-400) 293 X10*3/uL 11/02/24 Sodium, (135-145) 141 mmol/L 11/02/24 Potassium, (3.3-5.1) 3.2 mmol/L L 11/02/24 Chloride, (96-108) 106 mmol/L 11/02/24 Carbon Dioxide, (22-29) 22 mmol/L 11/02/24 BUN, (9-16) 11 mg/dL 11/02/24 Creatinine, (0.5-1.4) 0.63 mg/dL 11/02/24 Calcium, (8.4-10.2) 11.3 mg/dL H Δ 11/02/24 Assessment & Plan Assessment & Plan (1) Essential hypertension: Code(s): I10 - Essential (primary) hypertension Category: Medical (2) Proteinuria: Code(s): R80.9 - Proteinuria, unspecified Category: Medical Plan Middle-aged woman with a hypertension obesity and diabetes mellitus with minimal proteinuria. All about 3 etiologies could be a contributing factor for the proteinuria. I have initiated a workup for the proteinuria. In the meantime agree with ANDREW inhibitors. We will titrate the dose as tolerated. Discussed importance of tight control blood sugar and blood pressure and weight loss to minimize the urine protein excretion She has mild hypercalcemia. She is has been taking [id number] vitamin-D. I will recheck calcium levels along with intact PTH and vitamin-D levels. At present blood pressure is well controlled Encouraged her to stay on low-sodium diet No changes were made to the antihypertensive regimen. There is a history of nephrolithiasis in the past. However she can not recall having stone recently. I will follow up with a renal ultrasonogram especially since she has hypercalcemia. After the workup is completed she returned to office in the next few weeks. Orders: Orders Basic Metabolic Panel Today I10 - Essential (primary) hypertension, R80.9 - Proteinuria, unspecified Vitamin D 25-OH Total Today I10 - Essential (primary) hypertension, R80.9 - Proteinuria, unspecified Parathyroid Hormone Intact Today I10 - Essential (primary) hypertension, R80.9 - Proteinuria, unspecified Complete Blood Count no Diff Today I10 - Essential (primary) hypertension, R80.9 - Proteinuria, unspecified US renal BI Today I10 - Essential (primary) hypertension, R80.9 - Proteinuria, unspecified Coding Level of Care Code New Pt Level 4 (14176) Diagnoses Essential hypertension I10 Proteinuria R80.9
== END 2024-11-15 13:54 | disposition home or self-care (01) ==
LOC: HO.HKA 13:22
PROVIDERS: PCP Internal Medicine; Referring Provider Internal Medicine; Visit Provider Internal Medicine Hypertension Specialist
DX: I10 Essential (primary) hypertension (principal); R80.9 Proteinuria, unspecified
CPT/HCPCS: 99204

== ENCOUNTER 2024-11-15 13:21 | Outpatient (REF) | payer OTHER, SELFPAY ==
[2024-11-15 14:31] LABS: Hematocrit 44.5 % (37.0-47.0); Hemoglobin 15.1 g/dl (12.0-16.0); Mean Corpuscular HGB Conc 33.9 g/dl (31.0-35.0); Mean Corpuscular Hemoglobin 29.8 pg (27.0-33.0); Mean Corpuscular Volume 87.8 fL (80.0-98.0); NRBC Abs Auto 0.000 X10*3/uL (0.0-0.012); NRBC Pct Auto 0.0 /100WBC (0.0-0.2); Platelet Count 266 X10*3/uL (160-400); Red Blood Count 5.07 X10*6/uL (4.20-5.50); White Blood Count 8.8 X10*3/uL (4.8-10.8)
[2024-11-15 15:02] LABS: Parathyroid Hormone Intact 76.6 pg/mL (8.7-77.1)
[2024-11-15 15:14] LABS: Anion Gap 13 (12-20); Blood Urea Nitrogen 14 mg/dL (9-16); Calcium 10.3 mg/dL (8.4-10.2); Carbon Dioxide 24 mmol/L (22-29); Chloride 108 mmol/L (96-108); Estimated Glomerular Filt Rate > 60; Potassium 3.9 mmol/L (3.3-5.1); Sodium 141 mmol/L (135-145)
== END 2024-11-15 13:22 | disposition home or self-care (01) ==
LOC: HO.LAB 13:21
PROVIDERS: PCP Internal Medicine; Referring Provider Internal Medicine; Visit Provider Internal Medicine Hypertension Specialist
DX: I10 Essential (primary) hypertension (principal); R80.9 Proteinuria, unspecified
CPT/HCPCS: 36415; 80048; 82306; 83970; 85027; 99202

== ENCOUNTER 2024-11-29 10:51 | Outpatient (AMB) | payer OTHER, SELFPAY ==
--- NOTE | 2024-11-29 10:56 | HO.NEPHOV ---
Vital Signs 11/29/24 10:57 Height 5 ft 7 in Weight 212 lb BMI 33.2 BP 132/80 Blood Pressure Location Rt brachial Position Sitting Pulse 94 Pulse Source Pulse Oximeter Pulse Oximetry (%) 99 Oxygen Delivery Method Room Air Intake Visit Reasons: 2wk f/u confirmed Senior Manufacturing Technician Required: Yes Senior Manufacturing Technician Name: [id number] Keysha Accompanied by: PAST DUE ACCOUNTS CLERK Allergies bee pollen (BEE STINGS) Allergy (Intermediate, Verified 11/29/24 10:59) RASH SWELLING PAIN FULL. phentermine Allergy (Intermediate, Verified 11/29/24 10:59) ANXIETY tramadol Allergy (Intermediate, Verified 11/29/24 10:59) stomach upset adhesive tape (ADHESIVE TAPE) Allergy (Mild, Verified 11/29/24 10:59) RASH oxycodone (OXYCODONE) Adverse Reaction (Intermediate, Verified 11/29/24 10:59) VOMITING acetaminophen (From Percocet) Adverse Reaction (Verified 11/29/24 10:59) Vomiting apremilast (From Otezla) Adverse Reaction (Verified 11/29/24 10:59) diarrhea, nausea Medication List - Last Reconciled 11/29/24 by Isaiah Gonzalez MD acetaminophen 1,000 mg (2 x 500 mg) PO Q8H PRN aspirin (Adult Aspirin Regimen) 81 mg PO DAILY 90 days blood sugar diagnostic ([employer] Ultra Test strips) Use 1 test strip once a day blood-glucose meter ([employer] Ultra2 Meter) As directed clobetasol 0.05% 1 appl topical BID cyclobenzaprine 10 mg PO TID diclofenac sodium 1% (Arthritis Pain (diclofenac)) 2 grams topical QID 30 days empagliflozin (Jardiance) 25 mg PO DAILY 90 days epinephrine IM ONCE esomeprazole magnesium DR 40 mg PO DAILY fenofibrate 54 mg PO DAILY fluticasone propion-salmeterol 115-21 mcg/actuation (Advair HFA) 2 puffs PO BID gabapentin 300 mg PO BID ibuprofen 400 mg PO Q6H PRN ipratropium bromide 2 sprays intranasal TID-QID PRN 30 days ixekizumab (Taltz Autoinjector (3 Pack)) mg subcut lancets ([employer] UltraSoft 2 Lancet) Use 1 lancet once a day levocetirizine 5 mg PO DAILY linaclotide 72 mcg PO DAILY lisinopril 5 mg PO DAILY loratadine 10 mg PO DAILY PRN lorazepam 1 mg PO TID PRN meclizine 25 mg PO BID PRN meclizine 25 mg PO DAILY PRN metoprolol succinate ER 50 mg PO DAILY nebulizers ([employer] Go Nebulizer) As directed omalizumab (Xolair) 300 mg subcut Q4W 28 days ondansetron 4 mg PO Q8H PRN paroxetine HCl 20 mg PO DAILY paroxetine HCl 10 mg PO QAM polyethylene glycol 3350 17 grams PO DAILY rosuvastatin 40 mg PO DAILY 90 days tirzepatide (Mounjaro) 10 mg (0.5 mL) subcut QWEEK 4 weeks topiramate XR 100 mg PO DAILY triamcinolone acetonide 0.1% topical zolpidem 10 mg PO BEDTIME PRN HPI Comments Details: Pleasant 59-year-old woman referred for evaluation of proteinuria. She has a history of diabetes mellitus for the last few years. History of longstanding hypertension obesity. She is currently on Mounjaro and lost some weight. She used to be around 240 lb and currently at 217 lb. She has essentially normal renal function. Urine protein creatinine ratio was around 250 mg and hence this evaluation. She has a history of cardiomyopathy. Status post ablation in the history of supraventricular tachycardia. 11/29/2024 - The patient is a 59-year-old female presenting with proteinuria. - Proteinuria identified during routine examination. - Kidney function normal. - Hypercalcemia noted, calcium reduced from 11.3 to 10.3 mg/dL. - Occasional vitamin D use. - Leg pain without swelling, with cramps. [facility] Medical History (Updated 11/15/24 @ 13:51 by Isaiah Gonzalez MD) Varicose veins of both lower extremities BRCA negative Hx of acute myeloid leukemia in remission Benign paroxysmal positional vertigo Hospital discharge follow-up Abscess Essential hypertension Diabetes mellitus Migraines Hand numbness Mild persistent asthma Impaired glucose tolerance Mild recurrent major depression Herpes simplex type 2 infection Mixed hyperlipidemia Supraventricular tachycardia Left leg pain GERD (gastroesophageal reflux disease) Insomnia Left knee pain Nausea Depression with anxiety Surgical History History of cardiac catheterization History of esophagogastroduodenoscopy (EGD) Hx of colonoscopy History of removal of cyst History of surgery History of total abdominal hysterectomy History of cardiac radiofrequency ablation Family History Father Brain cancer Mother Esophageal cancer Sister Breast cancer Paternal Uncle Diabetes Hypertension Sister Colon cancer, Onset Age: 63 Social History Household Members: Children Housing: House Do you presently have visiting nurse or other home services: Yes Alcohol intake: never Patient Tobacco Use Status: Never used Tobacco e-Cigarette/Vaping Use: Never Used Second Hand Smoke Exposure: No Advance Directives Date on File: 03/11/23 service: No Current occupational status: unemployed Sexual orientation: Straight/Heterosexual Gender identity: Female Cognitive needs: No Hearing needs: No Vision needs: No Female Reproductive History Menstrual Age of Menarche: 13 Physical Exam Vital Signs: Last Vital Signs Pulse 94 11/29/24 10:57 BP 132/80 11/29/24 10:57 Pulse Ox 99 11/29/24 10:57 Oxygen Delivery Method Room Air 11/29/24 10:57 BMI result Body Mass Index 33.2 Comfortable Neck supple no JVD. Lungs entry equal no rales. Heart S1-S2 heard no gallop or rub. Abdomen soft nontender. Neuro alert awake oriented. No asterixis. Extremities no edema. Results Reviewed Nephrology Results: Hgb, (12.0-16.0) 15.1 g/dl 11/15/24 WBC, (4.8-10.8) 8.8 X10*3/uL 11/15/24 Plt Count, (160-400) 266 X10*3/uL 11/15/24 Sodium, (135-145) 141 mmol/L 11/15/24 Potassium, (3.3-5.1) 3.9 mmol/L Δ 11/15/24 Chloride, (96-108) 108 mmol/L 11/15/24 Carbon Dioxide, (22-29) 24 mmol/L 11/15/24 BUN, (9-16) 14 mg/dL 11/15/24 Creatinine, (0.5-1.4) 0.66 mg/dL 11/15/24 Calcium, (8.4-10.2) 10.3 mg/dL H Δ 11/15/24 PTH Intact, (8.7-77.1) 76.6 pg/mL 11/15/24 Assessment & Plan Assessment & Plan (1) Essential hypertension: Code(s): I10 - Essential (primary) hypertension Category: Medical (2) Proteinuria: Code(s): R80.9 - Proteinuria, unspecified Category: Medical Plan Middle-aged woman with a hypertension obesity and diabetes mellitus with minimal proteinuria. All about 3 etiologies could be a contributing factor for the proteinuria. Recent urine protein creatinine ratio was 247 agree with ANDREW inhibitors. We will titrate the dose as tolerated. Discussed importance of tight control blood sugar and blood pressure and weight loss to minimize the urine protein excretion She has mild hypercalcemia. She is has been taking [id number] vitamin-D. Repeat calcium has improved at 10.3 PTH is 76 Discontinue vitamin-D supplements Check SPEP recheck calcium in few months At present blood pressure is well controlled Encouraged her to stay on low-sodium diet No changes were made to the antihypertensive regimen. There is a history of nephrolithiasis in the past. However she can not recall having stone recently. Renal ultrasonogram and hematocrit Orders: Orders Protein Electrophoresis, Serum 3 Months E83.52 - Hypercalcemia, I10 - Essential (primary) hypertension Basic Metabolic Panel 3 Months E83.52 - Hypercalcemia, I10 - Essential (primary) hypertension Parathyroid Hormone Intact 3 Months E83.52 - Hypercalcemia, I10 - Essential (primary) hypertension Coding Level of Care Code Est Pt Level 4 (56889) Diagnoses Essential hypertension I10 Proteinuria R80.9
[2024-11-29 10:57] VITALS: BP 132/80; PULSE 94; O2SAT 99; BMI 33.2
== END 2024-11-29 11:10 | disposition home or self-care (01) ==
LOC: HO.HKA 10:52
PROVIDERS: PCP Internal Medicine; Visit Provider Internal Medicine Hypertension Specialist
DX: I10 Essential (primary) hypertension (principal); R80.9 Proteinuria, unspecified
CPT/HCPCS: 99214

== ENCOUNTER → 2024-11-29 10:51 | Outpatient (BNVA) | payer OTHER, SELFPAY | PROVIDERS: PCP Internal Medicine; Visit Provider Internal Medicine Hypertension Specialist | DX: I10 Essential (primary) hypertension (principal); R80.9 Proteinuria, unspecified | CPT/HCPCS: 99212 ==

== ENCOUNTER 2024-12-04 10:52 | Outpatient (REF) | payer OTHER, SELFPAY | END 2024-12-04 10:53 | disposition home or self-care (01) | LOC: HO.MAMMO 10:52 | PROVIDERS: PCP Internal Medicine; Visit Provider Internal Medicine | DX: Z12.31 Encounter for screening mammogram for malignant neoplasm of breast (principal) | CPT/HCPCS: 77063; 77067 ==

== ENCOUNTER → 2024-12-04 11:45 | Outpatient (BNV) | payer OTHER, SELFPAY | PROVIDERS: PCP Internal Medicine; Visit Provider Internal Medicine | DX: Z12.31 Encounter for screening mammogram for malignant neoplasm of breast (principal) | CPT/HCPCS: 77063; 77067 ==

== ENCOUNTER 2024-12-06 08:39 | Outpatient (REF) | payer OTHER, SELFPAY ==
--- NOTE | ~2024-12-06 | MM_ITS ---
EXAMINATION: BONE DENSITOMETRY CLINICAL INDICATION: Asymptomatic menopausal state. COMPARISON: Previous exam November 2022 TECHNIQUE: Using a [employer] DXA System (software version: 13) manufactured by [employer], dual-energy x-ray absorptiometry was performed of the lumbar spine and left hip. The images are of good technical quality. Summary results are attached. FINDINGS: AP SPINE L1-L4: BMD 1.17 g/cm2, Z-score -0.1, T-score -0.1, normal. Previous 1.14 g/sq cm. LEFT FEMUR, NECK: BMD 0.803 g/cm2, Z-score -1.2, T-score -1.7, osteopenia. Previous 0.8 g/sq cm. LEFT FEMUR, TOTAL: BMD 0.948 g/cm2, Z-score -0.4, T-score -0.5, normal. Previous 0.96 g/sq cm. IDENTIFIED RISK FACTORS: None listed. HISTORY OF FRACTURE: None listed. MEDICATIONS: None listed. MM/XR DEXA axial skeleton IMPRESSION: 1. DIAGNOSIS: Osteopenia based on the lowest T-score value of -1.2 in the left femoral neck applying World Health Organization criteria. 2. 10-YEAR FRACTURE RISK PREDICTION, FRAX: Major osteoporotic (spine, forearm, hip or shoulder) 4.2%, and hip 0.4% 3. Treatment Recommendations: NOF guidelines recommend consideration for treatment in postmenopausal women and men age 50 and older presenting with the following: -A hip or vertebral (clinical or morphometric) fracture. -T-score less than or equal to 0.1 2.5 at the femoral neck or spine after appropriate evaluation to exclude secondary causes. -Low bone mass at the hip or spine and a 10-year fracture probability by FRAX of greater than or equal to 3% for hip fracture or greater than or equal to 20% for major osteoporotic fracture based on the [place] adapted WHO algorithm. FUTURE SCAN RECOMMENDATION: People with diagnosed cases of osteoporosis or at high risk for fracture should have regular bone mineral density tests. For patients eligible for Medicare, routine testing is allowed once every 2 years. The testing frequency can be increased to one year for patients who have rapidly progressing disease, those who are receiving or discontinuing medical therapy to restore bone mass, or have additional risk factors. Electronically signed by: Sylwia Peralta MD 12/06/2024 03:52 PM EDT RP
== END 2024-12-06 08:40 | disposition home or self-care (01) ==
LOC: HO.MAMMO 08:39
PROVIDERS: PCP Internal Medicine; Visit Provider Internal Medicine
DX: Z13.820 Encounter for screening for osteoporosis (principal); Z78.0 Asymptomatic menopausal state
CPT/HCPCS: 77080

== ENCOUNTER → 2024-12-06 09:15 | Outpatient (BNV) | payer OTHER, SELFPAY | PROVIDERS: PCP Internal Medicine; Visit Provider Radiology Diagnostic Radiology | DX: E28.39 Other primary ovarian failure (principal) | CPT/HCPCS: 77080 ==

== ENCOUNTER 2024-12-10 08:39 | Outpatient (REF) | payer OTHER, SELFPAY ==
--- NOTE | ~2024-12-10 | US_ITS ---
CLINICAL HISTORY: I10 - Essential (primary) hypertension US renal with Color Doppler Comparison: None Findings: Right kidney normal size and echotexture, 10.9 cm length. No hydronephrosis. No nephrolithiasis. Normal color flow. Renal cortical cyst upper pole with internal echoes measuring 1.7 x 1.1 x 1.3 cm. Left kidney normal size and echotexture, 11.8 cm length. No hydronephrosis. No renal mass. Normal color flow. Renal cortical cyst midpole measuring 1.4 x 0.9 x 1.7 cm with milk of calcium. Impression: 1. Kidneys normal size and position with normal cortical width and echotexture. No evidence of obstructive uropathy. Renal cortical cysts bilaterally. Milk of calcium is noted in the left renal cyst. The right renal cyst has internal echoes and can be followed up with a contrast-enhanced CT or MRI. This document has been electronically signed by: Brandon Barron MD on 12/11/2024 07:49:13
== END 2024-12-10 08:40 | disposition home or self-care (01) ==
LOC: HO.US 08:39
PROVIDERS: PCP Internal Medicine; Referring Provider Internal Medicine Hypertension Specialist; Visit Provider Internal Medicine
DX: I10 Essential (primary) hypertension (principal); R80.9 Proteinuria, unspecified
CPT/HCPCS: 76775

== ENCOUNTER → 2024-12-10 08:40 | Outpatient (BNV) | payer OTHER, SELFPAY | PROVIDERS: PCP Internal Medicine; Referring Provider Internal Medicine Hypertension Specialist; Visit Provider Radiology Diagnostic Radiology | DX: N28.1 Cyst of kidney, acquired (principal) | CPT/HCPCS: 76775 ==

== ENCOUNTER 2024-12-14 09:18 | Outpatient (AMB) | payer OTHER, SELFPAY ==
[2024-12-14 09:21] VITALS: BP 132/84; PULSE 91; O2SAT 98; BMI 32.7
--- NOTE | 2024-12-14 09:21 | A.OFFVIS_ITS ---
Vital Signs 12/14/24 09:21 Height 5 ft 7 in Weight 209 lb BMI 32.7 BP 132/84 Blood Pressure Location Rt brachial Position Sitting Pulse 91 Pulse Source Pulse Oximeter Pulse Oximetry (%) 98 Oxygen Delivery Method Room Air Intake Visit Reasons: Asthma Car Rental Service Attendant Required: Yes Car Rental Service Attendant Name: Xiao Owens C.L.Raad Allergies bee pollen (BEE STINGS) Allergy (Intermediate, Verified 12/14/24 09:25) RASH SWELLING PAIN FULL. phentermine Allergy (Intermediate, Verified 12/14/24 09:25) ANXIETY tramadol Allergy (Intermediate, Verified 12/14/24 09:25) stomach upset adhesive tape (ADHESIVE TAPE) Allergy (Mild, Verified 12/14/24:25) RASH oxycodone (OXYCODONE) Adverse Reaction (Intermediate, Verified 12/14/24:25) VOMITING acetaminophen (From Percocet) Adverse Reaction (Verified 12/14/24:25) Vomiting apremilast (From Otezla) Adverse Reaction (Verified 12/14/24:25) diarrhea, nausea HPI HPI Asthma: Details: 59-year-old lady, nonsmoker, with underlying history of lifelong asthma previously controlled on Spiriva, Advair, and albuterol MDI, also with COVID-19 back in March of 2021. Now followed for asthma and environmental allergies. Patient's symptoms are now well controlled on Xolair, Advair, albuterol MDI, and nasal ipratropium. She denies any recent exacerbations. [facility] Medical History (Updated 11/15/24 @ 13:51 by Isaiah Gonzalez MD) Varicose veins of both lower extremities BRCA negative Hx of acute myeloid leukemia in remission Benign paroxysmal positional vertigo Hospital discharge follow-up Abscess Essential hypertension Diabetes mellitus Migraines Hand numbness Mild persistent asthma Impaired glucose tolerance Mild recurrent major depression Herpes simplex type 2 infection Mixed hyperlipidemia Supraventricular tachycardia Left leg pain GERD (gastroesophageal reflux disease) Insomnia Left knee pain Nausea Depression with anxiety Surgical History History of cardiac catheterization History of esophagogastroduodenoscopy (EGD) Hx of colonoscopy History of removal of cyst History of surgery History of total abdominal hysterectomy History of cardiac radiofrequency ablation Family History Father Brain cancer Mother Esophageal cancer Sister Breast cancer Paternal Uncle Diabetes Hypertension Sister Colon cancer, Onset Age: 63 Social History Household Members: Children Housing: House Do you presently have visiting nurse or other home services: Yes Alcohol intake: never Patient Tobacco Use Status: Never used Tobacco e-Cigarette/Vaping Use: Never Used Second Hand Smoke Exposure: No Advance Directives Date on File: 03/11/23 service: No Current occupational status: unemployed Sexual orientation: Straight/Heterosexual Gender identity: Female Cognitive needs: No Hearing needs: No Vision needs: No Female Reproductive History Menstrual Age of Menarche: 13 Review of Systems Const Denies daytime sleepiness, Denies excessive sweating, Denies fatigue, Denies fever(s), Denies lethargy, Denies malaise, Denies night sweats, Denies snoring and Denies weight loss Eyes Denies blurry vision and Denies itchy eyes ENT Denies nasal congestion, Denies post nasal drip, Denies sinus pain, Denies sinus pressure and Denies other ( Thrush) Card Denies chest pain, Denies pedal edema, Denies dyspnea, Denies orthopnea and Denies paroxysmal nocturnal dyspnea Resp Denies cough, Denies hemoptysis, Denies excessive phlegm production, Denies dyspnea, Denies snoring and Denies wheezing GI Denies abdominal pain and Denies heartburn Musc Denies myalgias, Denies arthralgias and Denies joint swelling Skin/Breast Denies rash Neuro Denies memory loss and Denies seizure-like activity Psych Denies abnormal sleep pattern, Denies anxiety and Denies memory loss Endo Denies excessive sweating, Denies fatigue and Denies heat intolerance Zak/Lymph Denies easy bruising Aller/Immun Denies itchy eyes, Denies seasonal rhinorrhea and Denies wheezing Physical Exam Vital Signs: Last Vital Signs Pulse 91 12/14/24 09:21 BP 132/84 12/14/24 09:21 Pulse Ox 98 12/14/24 09:21 Oxygen Delivery Method Room Air 12/14/24 09:21 BMI result Body Mass Index 32.7 Const General: no acute distress and alert Nutritional Appearance: not obese Orientation/consciousness: Other orientation findings ( oriented) HEENT Head: Yes atraumatic Eyes General: appearance normal, both eyes and all related structures Sclerae: sclerae normal EOM: EOMs intact bilaterally Neck Neck: Yes supple Lymphatic: no lymphadenopathy noted Resp Effort & Inspection: normal respiratory effort and no use of accessory muscles Auscultation: clear to auscultation bilaterally Cardio Rate: regular rate Rhythm: regular rhythm Heart sounds: no gallops, no murmurs and no rubs Skin General skin exam: other ( warm) Extrem General: No clubbing, No cyanosis and No edema Assessment & Plan Assessment & Plan (1) Severe persistent asthma: Code(s): J45.50 - Severe persistent asthma, uncomplicated Category: Medical Plan: Well controlled on current regimen of Xolair, Advair, and albuterol MDI. Continue current regimen. (2) Environmental allergies: Code(s): Z91.09 - Other allergy status, other than to drugs and biological substances Category: Medical Plan: Well controlled on Xolair and nasal ipratropium. Continue current regimen. Coding Level of Care Code Est Pt Level 4 (56114) Diagnoses Severe persistent asthma J45.50 Environmental allergies Z91.09
--- OUTSIDE RECORDS SUMMARY | 2024-12-14 09:51 | XMS_ITS | Data Portability ---
Author Organization [place] - [facility], Allergy Address [address] [place] [address] Care Team Providers [employer] Supervisor Name Role Phone TAMIA HERMAN Referring Provider [...] Address Organization Details Recorded Time Chronic rhinitis 25047431 Active 2015 Chronic rhinitis; Note: Date Diagnosed: 10/23/2015 4:13 PM (J31.0) Not Available [facility] 02:50:32 Allergic rhinitis caused by pollen 46973331 Active 2015 Allergic rhinitis due to pollen; Note: Date Diagnosed: 11/18/2015 10:39 AM (J30.1) Not Available [facility] 08/02/202 4 02:50:33 Deviated nasal septum 628325238 Active 2016 Deviated nasal septum; Note: Date Diagnosed: 05/06/2016 9:16 AM (J34.2) Not Available [facility] 4 02:50:30 Allergic rhinitis 71095980 Active 2016 Other allergic rhinitis; Note: Date Diagnosed: 05/06/2016 9:16 AM (J30.89) Perennia l allergic rhinitis; Note: Date Diagnosed: 11/18/2015 10:39 AM (J30.89) ; Start Date : 11/18/2015 Not Available [facility] 4 02:50:28 Asthma 701345629 Active 2016 Other asthma; Note: Date Diagnosed: 05/06/2016 9:16 AM (J45.998) Not Available [facility] 4 02:50:30 Obstructi ve sleep apnea syndrome 30415900 Active 2016 Obstructiv e sleep apnea (adult) (pediatric ); Note: Date Diagnosed: 05/06/2016 9:16 AM (G47.33) Not Available [facility] 4 02:50:31 Sensorine ural hearing loss of bilateral ears 076319244 Active 2024 [address], [address] , [facility] 5 10:08:59 Problem Notes None recorded. Procedures Surgical History Date Name Laterality Status Provider Name and Address Organization Details Recorded Time 03/28/2024 Comp Audio with Tymps - 06884 & 84755 completed NARESH LINO, [address], [address], [facility] 03/28/2024 10:08:52 Imaging Results None recorded. Procedure Notes None recorded. Medical Equipment None Reported. Medications Name Sig Start Date Stop Date Status Note LastModified by Organization Details LastModified Time cyclobenza salo 10 mg tablet 2015 active Medicatio n ID: [id number] Du ration Value: 30 Brand Name: cyclobenz aprine Se nd Method: E-Prescri bed Subs Allowed: subs OK Medica tionGener icName: cyclobenz aprine Not Available Not Available Not Available Qvar 80 mcg/actuat ion Metered Aerosol oral inhaler 2015 active Medicatio n ID: [id number] Du ration Value: 30 Brand Name: Qvar Send Method: E-Prescri bed Subs Allowed: subs OK Specia l Instructi on: TK 1 PUFF PO BID WITH SPACER FOR 30 DAYS Medi cationGen ericName: Qvar Not Available Not Available Not Available gabapentin 600 mg tablet 2015 active Medicatio n ID: [id number] Du ration Value: 30 Brand Name: gabapenti n Send Method: E-Prescri bed Subs Allowed: subs OK Specia l Instructi on: TK 1 T PO TID Medic ationGene ricName: gabapenti n Not Available Not Available Not Available propranolo l 80 mg tablet 2015 active Medicatio n ID: [id number] Br and Name: propranol ol Send Method: [...] nebulizati on 2015 active Medicatio n ID: [id number] Du ration Value: 25 Brand Name: Albuterol [...] mg tablet 2015 active Medicatio n ID: [id number] Du ration Value: 30 Brand Name: butalbita l-acetami nophen-ca ff Send Method: E-Prescri bed Subs Allowed: subs OK Specia l Instructi on: TK 1 T PO QD PRF PAZ Medica tionGener icName: butalbita l-acetami nophen-ca ff Not Available Not Available Not Available Medrol 4 mg tablet 2015 active Medicatio n ID: [id number] Br and Name: Medrol Se nd Method: [...] nasal spray 2015 active Medicatio n ID: [id number] Du ration Value: 30 Brand Name: flunisoli de Send Method: E-Prescri bed Subs Allowed: subs OK Specia l Instructi on: INL ONCE IEN D Medicat ionGeneri cName: flunisoli de Not Available Not Available Not Available paroxetine 20 mg tablet 2015 active Medicatio n ID: [id number] Du ration Value: 30 Brand Name: paroxetin [...] mg tablet 2015 active Medicatio n ID: [id number] Br and Name: Tylenol-C odeine #3 Send [...] mg tablet 2015 active Medicatio n ID: [id number] Du ration Value: 30 Brand Name: oxybutyni [...] mg capsule 2015 active Medicatio n ID: [id number] Br and Name: phentermi ne Send Method: E-Prescri bed Subs Allowed: subs OK Medica tionGener icName: phentermi ne Not Available Not Available Not Available loratadine 10 mg tablet TAKE 1 TABLET BY MOUTH DAILY active Not Available Not Available No t Available risperidon e 0.5 mg tablet 2015 active Medicatio n ID: [id number] Du ration Value: 30 Brand Name: risperido ne Send Method: E-Prescri bed Subs Allowed: subs OK Specia l Instructi on: TK 1 T PO QHS Medic ationGene ricName: risperido ne Not Available Not Available Not Available oxycodone 5 mg tablet 2015 active Medicatio n ID: [id number] Du ration Value: 3 Brand Name: oxycodone [...] mg tablet 2015 active Medicatio n ID: [id number] Du ration Value: 30 Brand Name: Vesicare Send Method: E-Prescri bed Subs Allowed: subs OK Specia l Instructi on: TK 1 T PO D Medicat ionGeneri cName: Vesicare Not Available Not Available Not Available Colace 2015 active Medicatio n ID: [id number] Br and Name: colace Se nd Method: E-Prescri bed Subs Allowed: subs OK Medica tionGener icName: colace Not Available Not Available Not Available naphazolin e 2015 active Medicatio n ID: [id number] Br and Name: naphazoli ne Send Method: E-Prescri bed Subs Allowed: subs OK Medica tionGener icName: naphazoli ne Not Available Not Available Not Available promethazi ne 2015 active Medicatio n ID: [id number] Br and Name: promethaz ine Send Method: E-Prescri bed Subs Allowed: subs OK Medica tionGener icName: promethaz ine Not Available Not Available Not Available Qvar 2015 active Medicatio n ID: [id number] Br and Name: qvar Send Method: E-Prescri bed Subs Allowed: subs OK Medica tionGener icName: qvar Not Available Not Available Not Available Xopenex HFA 45 mcg/actuat ion aerosol inhaler 2015 active Medicatio n ID: [id number] Du ration Value: 15 Brand Name: Xopenex [...] delayed release 2015 active Medicatio n ID: [id number] Du ration Value: 30 Brand Name: Dexilant Send Method: E-Prescri bed Subs Allowed: subs OK Specia l Instructi on: TK 1 C PO QPM AT SUPPER OR HS Medica tionGener icName: Dexilant Not Available Not Available Not Available lidocaine 5 % topical ointment 2015 active Medicatio n ID: [id number] Du ration Value: 15 Brand Name: lidocaine [...] Address Organization Details Last Updated DateTime 03/28/2024 868668.09 g 39.2 kg/m2 170.18 cm Clarice Roberts [place] - [facility] 03/28/2024 10:24:20 Social History None recorded. Functional Status None recorded. Mental Status None recorded. Family History Nothing Reported. Medical History No medical history recorded. Gynecological HistoryNo gynecological history recorded. Obstetrics History GPAL:G 0 P 0 0 0 0 Past Encounters Encounter ID Performer Location Encounter Start Date Encounter Closed Date Diagnosis/Indication Diagnosis SNOMED-CT Code Diagnosis ICD10 Code Diagnosis IMO Codes Diagnosis Note [id number] RUDY DICKSON PA-C [facility] [address] [address] 03/28/2024 09:30:25 03/28/2024 10:31:51 Sensorineural hearing loss of bilateral ears [id number] H90.3 Audiologic al evaluation results: Right ear: [...] Soto Member ID Guarantor Name 03/28/2024 1 [facility] - DOS ON OR AFTER 2022 - ONE CARE (MEDICARE REPLACEMENT/ADV ANTAGE - HMO) Simi Garza [id number] Simi Garza Notes Date Note Type Note Provider Name and Address Organization Details Recorded Time 03/28/2024 text/html ROS as noted in the HPI 58 year old female presents to the [...] and no ear surgeries. JANINE HART MD [address] [place] [address], [place], [address], [facility] - [facility] 03/28/2024 12:42:32 OBGyn Episode No OBEpisode recorded.
== END 2024-12-14 09:42 | disposition home or self-care (01) ==
LOC: HO.HPS 09:18
PROVIDERS: PCP Internal Medicine; Visit Provider Internal Medicine Pulmonary Disease
DX: J45.50 Severe persistent asthma, uncomplicated (principal); Z91.09 Other allergy status, other than to drugs and biological substances
CPT/HCPCS: 99214

== ENCOUNTER → 2024-12-14 09:18 | Outpatient (BNVA) | payer OTHER, SELFPAY | PROVIDERS: PCP Internal Medicine; Visit Provider Internal Medicine Pulmonary Disease | DX: L72.3 Sebaceous cyst (principal); J45.50 Severe persistent asthma, uncomplicated; Z91.09 Other allergy status, other than to drugs and biological substances | CPT/HCPCS: 99212 ==

== ENCOUNTER 2024-12-14 12:40 | Outpatient (AMB) | payer OTHER, SELFPAY ==
--- NOTE | 2024-12-14 12:48 | A.OFFPC_ITS ---
Vital Signs 3 12/14/24 12:49 Height 5 ft 7 in Weight 208 lb BMI 32.6 BP 130/80 Blood Pressure Location Lt brachial Position Sitting Pulse 90 Pulse Source Pulse Oximeter Temp 97.1 F Temp Source Temporal Artery Scan Pulse Oximetry (%) 98 Oxygen Delivery Method Room Air Intake Visit Reasons: bump on left leg Intake Note: Patient is here to follow up on Bump on left back thigh. Dock Attendant Required: Yes Dock Attendant Language: Portuguese Information Interpreted: non-clinical & clinical Furnace Door Tender: Present Accompanied by: RESIDENTIAL CAREGIVER Allergies bee pollen (BEE STINGS) Allergy (Intermediate, Verified 12/14/24 12:49) RASH SWELLING PAIN FULL. phentermine Allergy (Intermediate, Verified 12/14/24 12:49) ANXIETY tramadol Allergy (Intermediate, Verified 12/14/24 12:49) stomach upset adhesive tape (ADHESIVE TAPE) Allergy (Mild, Verified 12/14/24 12:49) RASH oxycodone (OXYCODONE) Adverse Reaction (Intermediate, Verified 12/14/24 12:49) VOMITING acetaminophen (From Percocet) Adverse Reaction (Verified 12/14/24 12:49) Vomiting apremilast (From Otezla) Adverse Reaction (Verified 12/14/24 12:49) diarrhea, nausea Tobacco use date assessed: 12/14/24 Dental Screening Dental Screen Date: 06/26/24 HPI HPI Comments 2 History of Present Illness0 Details 59 y/o Female patient who presents to [facility] clinic today for the same day appointment. Pt c/o Painful Cyst left posterior Thigh for a month. Reports that the cyst was small originally and now has been growing in size. Reports Pain with Touch - no drainage or redness. Denies Fevers, chills, nausea or vomiting. Reports h/o recurrent Cysts. [facility] Medical History (Updated 12/14/24 @ 13:27 by Kendal Nassar NP) Sebaceous cyst Varicose veins of both lower extremities BRCA negative Hx of acute myeloid leukemia in remission Benign paroxysmal positional vertigo Hospital discharge follow-up Abscess Essential hypertension Diabetes mellitus Migraines Hand numbness Mild persistent asthma Impaired glucose tolerance Mild recurrent major depression Herpes simplex type 2 infection Mixed hyperlipidemia Supraventricular tachycardia Left leg pain GERD (gastroesophageal reflux disease) Insomnia Left knee pain Nausea Depression with anxiety Surgical History History of cardiac catheterization History of esophagogastroduodenoscopy (EGD) Hx of colonoscopy History of removal of cyst History of surgery History of total abdominal hysterectomy History of cardiac radiofrequency ablation Family History Father Brain cancer Mother Esophageal cancer Sister Breast cancer Paternal Uncle Diabetes Hypertension Sister Colon cancer, Onset Age: 63 Social History Household Members: Children Housing: House Do you presently have visiting nurse or other home services: Yes Alcohol intake: never Patient Tobacco Use Status: Never used Tobacco e-Cigarette/Vaping Use: Never Used Second Hand Smoke Exposure: No Advance Directives Date on File: 03/11/23 service: No Current occupational status: unemployed Sexual orientation: Straight/Heterosexual Gender identity: Female Cognitive needs: No Hearing needs: No Vision needs: No Female Reproductive History Menstrual Age of Menarche: 13 Questionnaire Thrive Questionnaire Date Thrive assessed: 10/10/24 I am a: Patient What is your living situation today?: I have a steady place to live Within the past 12 months, did the food you bought not last and you didn't have the money to get more?: I choose not to answer this question Within the past 12 months, did you worry whether your food would run out before you got money to buy more?: I choose not to answer this question Do you have trouble paying for medicines?: No Do you have trouble getting transportation to medical appointments?: No Do you have trouble paying your heating and electricity bill?: No Do you have trouble taking care of your child, family member or friend?: No Do you have trouble with day-to-day activities such as bathing, preparing meals, shopping, managing finances, etc.?: No Are you currently unemployed and looking for a job?: Yes Are you interested in more education?: Yes Please select the resources that you would like help with: Daily support Currently or been in a relationship where the following occur: I choose not to answer THRIVE Score: 0 DICKSON-7 AMB Questionnaire DICKSON-7 Date DICKSON - 7 assessed: 10/10/24 Source: Developed by Drs. Tez Bowen, Bree Perez, Cesar Gonzalez and colleagues, with an educational alexia from [employer]. Review of Systems Const All systems reviewed & are unremarkable except as noted in HPI and below Physical exam (Primary Care) Vital Signs: Last Vital Signs Temp 97.1 F 12/14/24 12:49 Pulse 90 12/14/24 12:49 BP 130/80 12/14/24 12:49 Pulse Ox 98 12/14/24 12:49 Oxygen Delivery Method Room Air 12/14/24 12:49 BMI result Body Mass Index 32.6 Tobacco/Smoking Status: Tobacco use Status Tobacco use date assessed 12/14/24 12/14/24 12:54 Patient Tobacco Use Status Never used Tobacco 12/14/24 12:54 e-Cigarette/Vaping Use Never Used 12/14/24 12:54 Thrive Assessment: Date of Thrive Assessment Date Thrive assessed 10/10/24 12/14/24 12:54 Currently or been in a relationship where the following occur: I choose not to answer Const General: no acute distress Nutritional Appearance: obese Orientation/consciousness: patient oriented x3 Skin Full body images: 2 1. A round, firm bump that is painful/tender to touch with blackhead-like center. No Drainage. Neuro General: patient oriented x3 and gait normal Psych Speech and movement: Normal speech and movement present Coding Level of Care Code Est Pt Level 4 (94587) Diagnoses Sebaceous cyst L72.3 Time Spent (min) 20 Assessment & Plan Assessment & Plan (1) Sebaceous cyst: Code(s): L72.3 - Sebaceous cyst Category: Medical Plan: Ordered Doxy 100 mg BID for 10 days. Apply warm compress to promote drainage. F/U with PCP if no improvement. Medications: New 2 doxycycline hyclate 100 mg PO BID 20 caps 0RF 10 days L72.3 - Sebaceous cyst bacitracin 1 appl topical TID 14 grams 0RF L72.3 - Sebaceous cyst
[2024-12-14 12:49] VITALS: BP 130/80; PULSE 90; TEMP 36.2; O2SAT 98; BMI 32.6
== END 2024-12-14 13:22 | disposition home or self-care (01) ==
LOC: HO.HMCH 12:41
PROVIDERS: PCP Internal Medicine; Visit Provider Nurse Practitioner Family
DX: L72.3 Sebaceous cyst (principal)

== ENCOUNTER 2024-12-24 08:46 | Outpatient (AMB) | payer OTHER, SELFPAY ==
--- NOTE | 2024-12-24 08:52 | MHC.OFFVIS ---
Vital Signs 12/24/24 08:53 Height 5 ft 7 in Weight 205 lb 0.478 oz BMI 32.1 BP 107/69 Blood Pressure Location Lt brachial Position Sitting Pulse 93 Intake Visit Reasons: 6 mo f/u Intake Note: States that she is not having any concerns at this time! Simi presents for a 6 month follow up. Journeyman Pipefitter Required: No Allergies bee pollen (BEE STINGS) Allergy (Intermediate, Verified 12/14/24 12:49) RASH SWELLING PAIN FULL. phentermine Allergy (Intermediate, Verified 12/14/24 12:49) ANXIETY tramadol Allergy (Intermediate, Verified 12/14/24 12:49) stomach upset adhesive tape (ADHESIVE TAPE) Allergy (Mild, Verified 12/14/24 12:49) RASH oxycodone (OXYCODONE) Adverse Reaction (Intermediate, Verified 12/14/24 12:49) VOMITING acetaminophen (From Percocet) Adverse Reaction (Verified 12/14/24 12:49) Vomiting apremilast (From Otezla) Adverse Reaction (Verified 12/14/24 12:49) diarrhea, nausea HPI HPI 6 mo f/u: Details: 59 yr old f here for f/u RECAP:pt of ulices Had GERD, on PPI--was taking prn instead of as scheduled but working for her constipation, on fiber and bisacodyl sx had improved a lot with pantoprzole and fiber diet she saw blood in stool and felt a hemorrhoid, she bought prep H and it helped mother of esophageal ca was a smoker. colonoscopy 2016- patty, flat hyperplastic poylp removed EGD 10/2018--fundic gland polyps, esophagitis--increased IEL duodenum, chronci esophagitis and gastritis celaic panel negative h pylori breath test neg GES 04/2019--normal --colonoscopy --11/2019--polyp removed--mucosal, benign, internal hemorrhoids, rept 3 yr due to fair prep EGD 11/26 done due to dysphagia: inflammation GEJ and dilation to 19 mm UEs and LES Path: moderate inflammation GEJ, active esophagitis, hyperplastic polyps stomach EGD 06/2022 with dilation of esophagus and stomach esophagitis gastritis fundic gland polyps small hiatal hernia schatzki ring Path: A. Stomach, biopsy: Oxyntic mucosa with moderate chronic inactive inflammation; no Helicobacter organisms seen. B. Stomach, polyps: Fundic gland polyps with background mild chronic inactive inflammation; no Helicobacter organisms seen. C. GE junction, biopsy: - Active esophagitis (mostly neutrophils). - No glandular epithelium identified. ALSO checked RAST; high levels for several foods incl peanuts, almonds, sesame, WHEAT colonoscopy 07/28 --clear, no polyps INTERIM: she is happy with linaclotide and not having issues w/ constipation she feels she has more breakthru heartburn events and maybe omeprazole is not as effective as before no dysphagia denies fever no abdominal pain appetite is good EXAM: GENERAL: The patient is well developed and nontoxic. VITAL SIGNS:see workflow HEENT: Nonicteric sclerae, PERRLA, EOMI. Oropharynx clear. Moist mucous membranes. Conjunctivae appear well perfused. No thyroid mass. CHEST: Chest wall is nontender. HEART: Regular rate and rhythm without murmurs. LUNGS: Clear to auscultation bilaterally. ABDOMEN: Soft, positive bowel sounds, non tender, no organomegaly.no flank tenderness SKIN: No rash, no excessive bruising, petechiae, or purpura. NEUROLOGIC: Cranial nerves II-XII intact without motor/sensory deficit. Assessments 1. GERD with esophagitis -on PPI, better since dilation--breakthru events maybe due to DM meds 2/ Food allergies 3/ constipation maybe slow transit or due to DM and medications, improved PLAN: 1/ cont low dose linaclotide 2/ Vit D3 supplement 3/ change to esomeprazole -stop omeprazole --if still having events or worsening reflux then repeat EGD--she will call me with update if this is the case [facility] Medical History (Updated 12/14/24 @ 13:27 by Kendal Nassar NP) Sebaceous cyst Varicose veins of both lower extremities BRCA negative Hx of acute myeloid leukemia in remission Benign paroxysmal positional vertigo Hospital discharge follow-up Abscess Essential hypertension Diabetes mellitus Migraines Hand numbness Mild persistent asthma Impaired glucose tolerance Mild recurrent major depression Herpes simplex type 2 infection Mixed hyperlipidemia Supraventricular tachycardia Left leg pain GERD (gastroesophageal reflux disease) Insomnia Left knee pain Nausea Depression with anxiety Surgical History History of cardiac catheterization History of esophagogastroduodenoscopy (EGD) Hx of colonoscopy History of removal of cyst History of surgery History of total abdominal hysterectomy History of cardiac radiofrequency ablation Family History Father Brain cancer Mother Esophageal cancer Sister Breast cancer Paternal Uncle Diabetes Hypertension Sister Colon cancer, Onset Age: 63 Social History Household Members: Children Housing: House Do you presently have visiting nurse or other home services: Yes Alcohol intake: never Patient Tobacco Use Status: Never used Tobacco e-Cigarette/Vaping Use: Never Used Second Hand Smoke Exposure: No Advance Directives Date on File: 03/11/23 service: No Current occupational status: unemployed Sexual orientation: Straight/Heterosexual Gender identity: Female Cognitive needs: No Hearing needs: No Vision needs: No Female Reproductive History Menstrual Age of Menarche: 13 Physical Exam Vital Signs: Last Vital Signs Pulse 93 12/24/24 08:53 BP 107/69 12/24/24 08:53 BMI result Body Mass Index 32.1 Assessment & Plan Assessment & Plan (1) GERD (gastroesophageal reflux disease): Code(s): K21.9 - Gastro-esophageal reflux disease without esophagitis Category: Medical Plan: as above Medications: New esomeprazole magnesium 20 mg PO DAILY 90 caps 2RF Refilled linaclotide 72 mcg PO DAILY 90 caps 3RF Coding Level of Care Code Est Pt Level 3 (39923) New Pt Prev Care 40-64y(35497) Diagnoses Gastroesophageal reflux disease, unspecified whether esophagitis present K21.9
[2024-12-24 08:53] VITALS: BP 107/69; PULSE 93; BMI 32.1
== END 2024-12-24 09:06 | disposition home or self-care (01) ==
LOC: HO.HGI 08:47
PROVIDERS: PCP Internal Medicine; Visit Provider Internal Medicine Gastroenterology
DX: K21.9 Gastro-esophageal reflux disease without esophagitis (principal); Z00.00 Encounter for general adult medical examination without abnormal findings
CPT/HCPCS: 99213

== ENCOUNTER → 2024-12-24 08:46 | Outpatient (BNVA) | payer OTHER, SELFPAY | PROVIDERS: PCP Internal Medicine; Visit Provider Internal Medicine Gastroenterology | DX: K21.9 Gastro-esophageal reflux disease without esophagitis (principal) | CPT/HCPCS: 99212 ==

== ENCOUNTER 2025-01-08 11:13 | Outpatient (AMB) | payer OTHER, SELFPAY ==
--- NOTE | 2025-01-08 11:15 | A.OFFVIS_ITS ---
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 States she has painful veins in her right thigh that are painful. States she does therapy and is unable to due to the pain in her thigh. Patient states she has had previous vein procedures around two years ago at [facility]. Accompanied by: Self / Same As Patient Allergies bee pollen (BEE STINGS) Allergy (Intermediate, Verified 12/14/24 12:49) RASH SWELLING PAIN FULL. 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 Complaints include pain over varicosities, swelling of lower extremities, cramping, fatigue, and heaviness of the lower extremities. It has been affecting there daily activities including walking. It is noted more so in right leg. Patient reports prior bilateral venous procedures at [facility] but unclear what was done 2 years prior Patient denies any history of DVT/ PE. Patient denies any history of phlebitis. Trial of compression includes - [id number] They now present for vascular evaluation regarding their varicose veins. [facility] Medical History Sebaceous cyst Varicose veins of both lower extremities BRCA negative Hx of acute myeloid leukemia in remission Benign paroxysmal positional vertigo Hospital discharge follow-up Abscess Essential hypertension Diabetes mellitus Migraines Hand numbness Mild persistent asthma Impaired glucose tolerance Mild recurrent major depression Herpes simplex type 2 infection Mixed hyperlipidemia Supraventricular tachycardia Left leg pain GERD (gastroesophageal reflux disease) Insomnia Left knee pain Nausea Depression with anxiety Surgical History History of cardiac catheterization History of esophagogastroduodenoscopy (EGD) Hx of colonoscopy History of removal of cyst History of surgery History of total abdominal hysterectomy History of cardiac radiofrequency ablation Family History Father Brain cancer Mother Esophageal cancer Sister Breast cancer Paternal Uncle Diabetes Hypertension Sister Colon cancer, Onset Age: 63 Social History Household Members: Children Housing: House Do you presently have visiting nurse or other home services: Yes Unable to assess alcohol history related to: Unable to respond Alcohol intake: never Patient Tobacco Use Status: Never used Tobacco e-Cigarette/Vaping Use: Never Used Second Hand Smoke Exposure: No Advance Directives Date on File: 03/11/23 service: No Current occupational status: unemployed Sexual orientation: Straight/Heterosexual Gender identity: Female Cognitive needs: No Hearing needs: No Vision needs: No Female Reproductive History Menstrual Age of Menarche: 13 Review of Systems Const Reports as per HPI ENT Reports no additional complaints Card Denies chest pain, Denies chest pain at rest and Denies chest pain with activity Resp Denies chest congestion and Denies cough GI Reports no additional complaints Musc Details: pain over varicosities, aching of lower extremities, swelling, cramping, heaviness and tiredness, itching Denies abnormal gait Skin/Breast Reports pruritus and Denies wounds Neuro Reports no additional complaints and Denies abnormal gait Psych Denies no additional complaints Physical Exam Const General: cooperative, healthy appearing and comfortable Orientation/consciousness: oriented to person, oriented to place and oriented to time Neck Carotids: no bruits Chest Chest palpation & inspection: normal inspection of the chest and normal palpation of entire chest wall Resp Effort & Inspection: normal respiratory effort and able to speak in complete sentences Cardio Rate: regular rate Heart sounds: S1 normal heart sound present and S2 normal heart sound present Peripheral pulses: Peripheral pulses 2+ throughout GI Inspection: Yes normal to inspection Skin Other: +2 edema, large rope-like varicosities greater than 4 mm right thigh CEAP Classification C4 - skin color changes Ep - Etiology Primary As - superficial veins P - reflux General skin exam: dry skin Neuro General: oriented to person, oriented to place and oriented to time Extrem Right lower extremity: full ROM, normal capillary refill and edema Left lower extremity: full ROM, normal capillary refill and edema Psych Mental Status: mental status grossly normal Assessment & Plan Assessment & Plan (1) Varicose veins of right lower extremity with inflammation: Code(s): I83.11 - Varicose veins of right lower extremity with inflammation Category: Medical Plan: In short, the patient has evidence of venous insufficiency. I have discussed the pathophysiology with the patient. In addition I have provided informational material regarding venous disease to the patient. We have discu ssed conservative measures including compression, elevation, and exercise. I have also provided a handout regarding appropriate use of compression stockings and where to purchase good compression stockings as well. I have taken the liberty of ordering venous insufficiency testing with the patient. They will follow up with me after testing. The patient had an opportunity to ask questions regarding the treatment plan. All questions were answered. Imaging studies, laboratory studies and physical exam results were discussed and reviewed in detail. No major barriers to understanding were identified. The patient expressed understanding and agreement with the above treatment plan. The patient is aware they should contact our office by phone for worsening of the current condition or the appearance of new symptoms. Thank you for allowing me to participate in the vascular care of this patient. If you have any questions or concerns regarding the treatment for the above condition please do not hesitate to contact me. The office telephone contact is [phone]. This note is constructed using voice recognition software. While every effort has been made to ensure accuracy, sleep technician errors may have been included. Thank you for allowing me to participate in the care of your patient. Yours sincerely, Miles Hart MD, FACS, R.P.V.I. Orders: Orders US venous duplex LE BI Today I83.11 - Varicose veins of right lower extremity with inflammation Coding Level of Care Code New Pt Level 4 (90548) Diagnoses Varicose veins of right lower extremity with inflammation I83.11
--- OUTSIDE RECORDS SUMMARY | 2025-01-08 13:43 | XMS_ITS | Data Portability ---
Author Organization [place] - [facility], Allergy Address [address] [place] [id number] Care Team Providers Care Calibration Tester Name Role Phone TAMIA HERMAN Referring Provider [phone] Assessment Encounter Date Assessment Date Assessment LastModified [...] Address Organization Details Recorded Time Chronic rhinitis 17958698 Active 2015 Chronic rhinitis; Note: Date Diagnosed: 10/23/2015 4:13 PM (J31.0) Not Available [facility] 02:50:32 Allergic rhinitis caused by pollen 42062966 Active 2015 Allergic rhinitis due to pollen; Note: Date Diagnosed: 11/18/2015 10:39 AM (J30.1) Not Available [facility] 08/02/202 4 02:50:33 Deviated nasal septum 338206611 Active 2016 Deviated nasal septum; Note: Date Diagnosed: 05/06/2016 9:16 AM (J34.2) Not Available [facility] 4 02:50:30 Allergic rhinitis 99688468 Active 2016 Other allergic rhinitis; Note: Date Diagnosed: 05/06/2016 9:16 AM (J30.89) Perennia l allergic rhinitis; Note: Date Diagnosed: 11/18/2015 10:39 AM (J30.89) ; Start Date : 11/18/2015 Not Available [facility] 4 02:50:28 Asthma 115537566 Active 2016 Other asthma; Note: Date Diagnosed: 05/06/2016 9:16 AM (J45.998) Not Available [facility] 4 02:50:30 Obstructi ve sleep apnea syndrome 62144033 Active 2016 Obstructiv e sleep apnea (adult) (pediatric ); Note: Date Diagnosed: 05/06/2016 9:16 AM (G47.33) Not Available [facility] 4 02:50:31 Sensorine ural hearing loss of bilateral ears 754139523 Active 2024 NARESH LINO [address], [phone] , [facility] 5 10:08:59 Problem Notes None recorded. Procedures Surgical History Date Name Laterality Status Provider Name and Address Organization Details Recorded Time 03/28/2024 Comp Audio with Tymps - 75768 & 85132 completed NARESH LINO, [address], [phone], [facility] 03/28/2024 10:08:52 Imaging Results None recorded. Procedure Notes None recorded. Medical Equipment None Reported. Medications Name Sig Start Date Stop Date Status Note LastModified by Organization Details LastModified Time cyclobenza salo 10 mg tablet 2015 active Medicatio n ID: [id number] Du ration Value: 30 Brand Name: cyclobenz aprine Se nd Method: E-Prescri bed Subs Allowed: subs OK Medica tionGener icName: cyclobenz aprine Not Available Not Available Not Available Qvar 80 mcg/actuat ion Metered Aerosol oral inhaler 2015 active Medicatio n ID: [id number] Du ration Value: 30 Brand Name: Qvar Send Method: E-Prescri bed Subs Allowed: subs OK Specia l Instructi on: TK 1 PUFF PO BID WITH SPACER FOR 30 DAYS Medi cationGen ericName: Qvar Not Available Not Available Not Available gabapentin 600 mg tablet 2015 active Medicatio n ID: [id number] Du ration Value: 30 Brand Name: gabapenti n Send Method: E-Prescri bed Subs Allowed: subs OK Specia l Instructi on: TK 1 T PO TID Medic ationGene ricName: gabapenti n Not Available Not Available Not Available propranolo l 80 mg tablet 2015 active Medicatio n ID: [id number] Br and Name: propranol ol Send Method: [...] nebulizati on 2015 active Medicatio n ID: [id number] Du ration Value: 25 Brand Name: Albuterol [...] mg tablet 2015 active Medicatio n ID: [id number] Du ration Value: 30 Brand Name: butalbita l-acetami nophen-ca ff Send Method: E-Prescri bed Subs Allowed: subs OK Specia l Instructi on: TK 1 T PO QD PRF PAZ Medica tionGener icName: butalbita l-acetami nophen-ca ff Not Available Not Available Not Available Medrol 4 mg tablet 2015 active Medicatio n ID: [id number] Br and Name: Medrol Se nd Method: [...] nasal spray 2015 active Medicatio n ID: [id number] Du ration Value: 30 Brand Name: flunisoli de Send Method: E-Prescri bed Subs Allowed: subs OK Specia l Instructi on: INL ONCE IEN D Medicat ionGeneri cName: flunisoli de Not Available Not Available Not Available paroxetine 20 mg tablet 2015 active Medicatio n ID: [id number] Du ration Value: 30 Brand Name: paroxetin [...] mg tablet 2015 active Medicatio n ID: [id number] Br and Name: Tylenol-C odeine #3 Send [...] mg tablet 2015 active Medicatio n ID: [id number] Du ration Value: 30 Brand Name: oxybutyni [...] mg capsule 2015 active Medicatio n ID: [id number] Br and Name: phentermi ne Send Method: E-Prescri bed Subs Allowed: subs OK Medica tionGener icName: phentermi ne Not Available Not Available Not Available loratadine 10 mg tablet TAKE 1 TABLET BY MOUTH DAILY active Not Available Not Available No t Available risperidon e 0.5 mg tablet 2015 active Medicatio n ID: [id number] Du ration Value: 30 Brand Name: risperido ne Send Method: E-Prescri bed Subs Allowed: subs OK Specia l Instructi on: TK 1 T PO QHS Medic ationGene ricName: risperido ne Not Available Not Available Not Available oxycodone 5 mg tablet 2015 active Medicatio n ID: [id number] Du ration Value: 3 Brand Name: oxycodone [...] mg tablet 2015 active Medicatio n ID: [id number] Du ration Value: 30 Brand Name: Vesicare Send Method: E-Prescri bed Subs Allowed: subs OK Specia l Instructi on: TK 1 T PO D Medicat ionGeneri cName: Vesicare Not Available Not Available Not Available Colace 2015 active Medicatio n ID: [id number] Br and Name: colace Se nd Method: E-Prescri bed Subs Allowed: subs OK Medica tionGener icName: colace Not Available Not Available Not Available naphazolin e 2015 active Medicatio n ID: [id number] Br and Name: naphazoli ne Send Method: E-Prescri bed Subs Allowed: subs OK Medica tionGener icName: naphazoli ne Not Available Not Available Not Available promethazi ne 2015 active Medicatio n ID: [id number] Br and Name: promethaz ine Send Method: E-Prescri bed Subs Allowed: subs OK Medica tionGener icName: promethaz ine Not Available Not Available Not Available Qvar 2015 active Medicatio n ID: [id number] Br and Name: qvar Send Method: E-Prescri bed Subs Allowed: subs OK Medica tionGener icName: qvar Not Available Not Available Not Available Xopenex HFA 45 mcg/actuat ion aerosol inhaler 2015 active Medicatio n ID: [id number] Du ration Value: 15 Brand Name: Xopenex [...] delayed release 2015 active Medicatio n ID: [id number] Du ration Value: 30 Brand Name: Dexilant Send Method: E-Prescri bed Subs Allowed: subs OK Specia l Instructi on: TK 1 C PO QPM AT SUPPER OR HS Medica tionGener icName: Dexilant Not Available Not Available Not Available lidocaine 5 % topical ointment 2015 active Medicatio n ID: [id number] Du ration Value: 15 Brand Name: lidocaine [...] Address Organization Details Last Updated DateTime 03/28/2024 778475.09 g 39.2 kg/m2 170.18 cm Clarice Roberts [place] - [facility] 03/28/2024 10:24:20 Social History None recorded. Functional Status None recorded. Mental Status None recorded. Family History Nothing Reported. Medical History No medical history recorded. Gynecological HistoryNo gynecological history recorded. Obstetrics History GPAL:G 0 P 0 0 0 0 Past Encounters Encounter ID Performer Location Encounter Start Date Encounter Closed Date Diagnosis/Indication Diagnosis SNOMED-CT Code Diagnosis ICD10 Code Diagnosis IMO Codes Diagnosis Note [id number] RUDY DICKSON PA-C [facility] [address] [phone] 03/28/2024 09:30:25 03/28/2024 10:31:51 Sensorineural hearing loss of bilateral ears [id number] H90.3 Audiologic al evaluation results: Right ear: [...] Soto Member ID Guarantor Name 03/28/2024 1 [facility] - DOS ON OR AFTER 2022 - ONE CARE (MEDICARE REPLACEMENT/ADV ANTAGE - HMO) Simi Garza [id number] Simi Garza Notes Date Note Type Note [...] and no ear surgeries. JANINE HART MD [address] [place] [address], [place], [phone], [facility] - [facility] 03/28/2024 12:42:32 OBGyn Episode No OBEpisode recorded.
== END 2025-01-08 11:46 | disposition home or self-care (01) ==
LOC: HO.HVS 11:13
PROVIDERS: PCP Internal Medicine; Visit Provider Surgery Vascular Surgery
DX: I83.11 Varicose veins of right lower extremity with inflammation (principal)
CPT/HCPCS: 99204

== ENCOUNTER → 2025-01-08 11:13 | Outpatient (BNVA) | payer OTHER, SELFPAY | PROVIDERS: PCP Internal Medicine; Visit Provider Surgery Vascular Surgery | DX: I83.11 Varicose veins of right lower extremity with inflammation (principal) | CPT/HCPCS: 99202 ==

== ENCOUNTER 2025-01-14 09:55 | Outpatient (RCR) | payer OTHER, SELFPAY | END 2025-01-14 11:07 | disposition home or self-care (01) | LOC: HO.PT 09:55 | PROVIDERS: PCP Internal Medicine; Visit Provider Anesthesiology Pain Medicine | DX: M54.50 Low back pain, unspecified (principal); M79.605 Pain in left leg; M54.16 Radiculopathy, lumbar region | CPT/HCPCS: 97110; 97140; 97162; 97530 ==

== ENCOUNTER 2025-01-28 10:22 | Outpatient (REF) | payer OTHER, SELFPAY ==
--- NOTE | ~2025-01-28 | US_ITS ---
EXAMINATION: US LOWER EXTREMITY VENOUS (REFLUX EXAM), BILATERAL CLINICAL INFORMATION: Varicose veins of the right lower extremity with inflammation COMPARISON: None. TECHNIQUE: Color flow triplex imaging and compression Doppler was performed to evaluate both the deep and the superficial systems bilaterally. To evaluate the superficial system, the examination was performed in the upright position. Color-flow Doppler ultrasound and compression ultrasound were utilized. In addition, maneuvers were utilized to demonstrate reflux. FINDINGS: 1. DEEP VENOUS ULTRASOUND OF THE RIGHT LOWER EXTREMITY: Common Femoral Vein: Compressible, normal respiratory variation and augmented flow. Femoral Vein: Compressible, normal color flow and augmentation. Popliteal Vein: Compressible, normal augmentation. Deep Reflux: There is no evidence of reflux in the deep system in either the common femoral vein, superficial femoral or the popliteal vein. 2. SUPERFICIAL ULTRASOUND WITH DOPPLER OF RIGHT LOWER EXTREMITY: GREAT SAPHENOUS VEIN: Saphenofemoral Junction: 0.7 cm; Reflux: 0 ms Proximal Thigh: 0.6 cm; Reflux: 0 ms Mid Thigh: Not seen Distal Thigh: Not seen At Knee: Not seen Below Knee/Proximal Calf: Not seen Mid Calf: Not seen Ankle/Distal Calf: 0.1 cm; Reflux: 0 ms Lateral / Medial accessory GREAT SAPHENOUS VEIN: Not seen SMALL SAPHENOUS VEIN: Drainage: Thigh extension Saphenopopliteal Junction: 0.2 cm; Reflux: 0 ms Mid calf: 0.2 cm; Reflux: 0 ms Distal: 0.5 cm; Reflux: 0 ms VEIN OF GIACOMINI: Size: NA cm Reflux: NA ms PERFORATORS: Location: Small saphenous vein, distal Size: 0.2 cm Reflux: 0 ms VARICOSITIES > 3mm: Location: None Imaged 3. DEEP VENOUS ULTRASOUND OF THE LEFT LOWER EXTREMITY: Common Femoral Vein: Compressible, normal respiratory variation and augmented flow. Femoral Vein: Compressible, normal color flow and augmentation. Popliteal Vein: Compressible, normal augmentation. Deep Reflux: There is no evidence of reflux in the deep system in either the common femoral vein, superficial femoral or the popliteal vein. 4. SUPERFICIAL ULTRASOUND WITH DOPPLER OF LEFT LOWER EXTREMITY: GREAT SAPHENOUS VEIN: Saphenofemoral Junction: 1.1 cm; Reflux: 0 ms Proximal Thigh: 0.5 cm; Reflux: 0 ms Mid Thigh: Not seen Distal Thigh: Not seen At Knee: Not seen Below Knee/Proximl calf: Not seen Mid Calf reconstituted by a binding printer: 0.1 cm; Reflux: 0 ms Distal Calf/Ankle: 0.3 cm; Reflux: 0 ms Lateral / Medial accessory GREAT SAPHENOUS VEIN: Not seen SMALL SAPHENOUS VEIN: Drainage: Thigh extension Saphenopopliteal Junction: 0.2 cm; Reflux: 0 ms Mid calf: 0.3 cm; Reflux: 0 ms Distal calf: 0.3 cm; Reflux: 0 ms VEIN OF GIACOMINI: Size: NA Reflux: NA PERFORATORS: Location: Small saphenous vein, mid Size: 0.2 cm Reflux: 0 ms Location: Greater saphenous vein, mid calf Size: 0.2 cm Reflux: 0 ms Location: Greater saphenous vein, distal calf Size: 0.2 cm Reflux: 0 ms VARICOSITIES > 3mm: Location: None Imaged US/US venous duplex LE BI IMPRESSION: Right: No venous reflux is demonstrated. The great saphenous vein is not demonstrated between the mid thigh and midcalf possibly related to prior procedure/ablation. Left: No venous reflux is demonstrated. The great saphenous vein is not demonstrated between the mid thigh and just below the knee possibly related to prior procedure/ablation. The great saphenous vein is reconstituted in the mid calf by a binding printer. Electronically signed by: Doron Burnett MD 01/28/2025 12:02 PM OTTO COBIAN
== END 2025-01-28 10:23 | disposition home or self-care (01) ==
LOC: HO.US 10:22
PROVIDERS: PCP Internal Medicine; Visit Provider Surgery Vascular Surgery
DX: I83.11 Varicose veins of right lower extremity with inflammation (principal)
CPT/HCPCS: 93970

== ENCOUNTER → 2025-01-28 10:25 | Outpatient (BNV) | payer OTHER, SELFPAY | PROVIDERS: PCP Internal Medicine; Visit Provider Radiology Diagnostic Radiology | DX: I83.11 Varicose veins of right lower extremity with inflammation (principal) | CPT/HCPCS: 93970 ==

== ENCOUNTER 2025-02-04 08:51 | Outpatient (REF) | payer OTHER, SELFPAY ==
[2025-02-04 10:18] LABS: Anion Gap 15 (12-20); Blood Urea Nitrogen 19 mg/dL (9-16); Calcium 10.5 mg/dL (8.4-10.2); Carbon Dioxide 22 mmol/L (22-29); Chloride 108 mmol/L (96-108); Estimated Glomerular Filt Rate > 60; Potassium 4.0 mmol/L (3.3-5.1); Sodium 141 mmol/L (135-145)
[2025-02-04 10:24] LABS: Parathyroid Hormone Intact 72.4 pg/mL (8.7-77.1)
[2025-02-06 21:14] LABS: Prot Elec - Albumin 4.2 g/dL (3.8-4.8); Prot Elec - Alpha1 0.2 g/dL (0.2-0.3); Prot Elec - Alpha2 0.8 g/dL (0.5-0.9); Prot Elec - Beta 1 0.5 g/dL (0.4-0.6); Prot Elec - Beta 2 0.5 g/dL (0.2-0.5); Prot Elec - Gamma 0.7 g/dL (0.8-1.7); Prot Elec - Total Protein 6.9 g/dL (6.1-8.1)
== END 2025-02-04 08:52 | disposition home or self-care (01) ==
LOC: HO.LAB 08:51
PROVIDERS: Internal Medicine Hypertension Specialist; PCP Internal Medicine; Visit Provider Internal Medicine
DX: I10 Essential (primary) hypertension (principal); E83.52 Hypercalcemia
CPT/HCPCS: 36415; 80048; 83970; 84165

== ENCOUNTER 2025-02-11 07:43 | Outpatient (AMB) | payer OTHER, SELFPAY ==
--- NOTE | 2025-02-11 07:45 | MHC.PC.OV ---
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 phentermine Allergy (Intermediate, Verified 02/11/25 08:06) ANXIETY tramadol Allergy (Intermediate, Verified 02/11/25 08:06) stomach upset adhesive tape (ADHESIVE TAPE) Allergy (Mild, Verified 02/11/25 08:06) RASH oxycodone (OXYCODONE) Adverse Reaction (Intermediate, Verified 02/11/25 08:06) VOMITING acetaminophen (From Percocet) Adverse Reaction (Verified 02/11/25 08:06) Vomiting apremilast (From Otezla) Adverse Reaction (Verified 02/11/25 08:06) diarrhea, nausea Medication List - Last Reconciled 02/11/25 by Kayy Aburto MD acetaminophen 1,000 mg (2 x 500 mg) PO Q8H PRN aspirin (Adult Aspirin Regimen) 81 mg PO DAILY 90 days bacitracin 1 appl topical TID blood sugar diagnostic ([employer] Ultra Test strips) Use 1 test strip once a day blood-glucose meter ([employer] Ultra2 Meter) As directed clobetasol 0.05% 1 appl topical BID cyclobenzaprine 10 mg PO TID diclofenac sodium 1% (Arthritis Pain (diclofenac)) 2 grams topical QID 30 days doxycycline hyclate 100 mg PO BID 10 days dulaglutide (Trulicity) 1.5 mg subcut QWEEK empagliflozin (Jardiance) 25 mg PO DAILY 90 days epinephrine IM ONCE esomeprazole magnesium 20 mg PO DAILY fenofibrate 54 mg PO DAILY fluticasone propion-salmeterol 115-21 mcg/actuation (Advair HFA) 2 puffs PO BID gabapentin 300 mg PO BID ibuprofen 400 mg PO Q6H PRN ipratropium bromide 2 sprays intranasal TID-QID PRN 30 days ixekizumab (Taltz Autoinjector (3 Pack)) mg subcut ketoconazole 2% topical lancets (OneTouch UltraSoft 2 Lancet) Use 1 lancet once a day levocetirizine 5 mg PO DAILY linaclotide 72 mcg PO DAILY lisinopril 5 mg PO DAILY loratadine 10 mg PO DAILY PRN lorazepam 1 mg PO TID PRN meclizine 25 mg PO BID PRN meclizine 25 mg PO DAILY PRN metoprolol succinate ER 50 mg PO DAILY nebulizers (Aeroneb Go Nebulizer) As directed omalizumab (Xolair) 300 mg subcut Q4W 28 days ondansetron 4 mg PO Q8H PRN paroxetine HCl 20 mg PO DAILY paroxetine HCl 10 mg PO QAM polyethylene glycol 3350 17 grams PO DAILY rosuvastatin 40 mg PO DAILY 90 days tirzepatide (Mounjaro) 10 mg (0.5 mL) subcut QWEEK 4 weeks topiramate XR 100 mg PO DAILY triamcinolone acetonide 0.1% topical zolpidem 10 mg PO BEDTIME PRN Tobacco use date assessed: 12/14/24 Dental Screening Dental Screen Date: 06/26/24 HPI HPI Comments History of Present Illness Details The patient is a 59 year old female presenting with multiple complaints including eye pain, facial swelling, esophageal obstruction, and an abscess. She reports pain and swelling in her eye area and face in the left side. An antibiotic prescribed for abscess on the thigh by a substitute provider was ineffective. The patient also has a history of a similar issue on her back post-surgery, which raises her concern. She is experiencing a recurrence of esophageal obstruction with dysphagia, limiting her intake of solid food. She has a history of psoriasis, and her senior sales engineer, Dr. Marie, attributed the facial issue to this condition. The patient has known allergies to bees, phentermine, tramadol, adhesive tape, and oxycodone. Her upcoming appointments include cardiology on February 18, nephrology on February 21, and a gastroenterology study on May 30. Her current medications include Tylenol, aspirin, Flexeril, Trulicity 1.5 mg, Jardiance 25 mg, esomeprazole, gabapentin, ibuprofen, Otezla for psoriasis, levocetirizine, Linzess, lisinopril 5 mg, lorazepam, metoprolol, Xolair, paroxetine, Miralax, rosuvastatin, and Mounjaro 10 mg. She has diabetes mellitus type 2 and her A1c is 8.3% today and this is why I will increase Mounjaro. A1c goal should be 7 or less. She also has moderate asthma follow by pulmonology on long-acting inhaler. Hypertension well controlled with lisinopril with a blood pressure within goal being less than 130/80. Patient with hypogammaglobulinemia in which urine and serum free light changed will be ordered. [facility] Medical History (Updated 02/11/25 @ 08:26 by Kayy Aburto MD) Sebaceous cyst Varicose veins of both lower extremities BRCA negative Hx of acute myeloid leukemia in remission Benign paroxysmal positional vertigo Hospital discharge follow-up Abscess Essential hypertension Diabetes mellitus Migraines Hand numbness Mild persistent asthma Impaired glucose tolerance Mild recurrent major depression Herpes simplex type 2 infection Mixed hyperlipidemia Supraventricular tachycardia Left leg pain GERD (gastroesophageal reflux disease) Insomnia Left knee pain Nausea Depression with anxiety Surgical History History of cardiac catheterization History of esophagogastroduodenoscopy (EGD) Hx of colonoscopy History of removal of cyst History of surgery History of total abdominal hysterectomy History of cardiac radiofrequency ablation Family History Father Brain cancer Mother Esophageal cancer Sister Breast cancer Paternal Uncle Diabetes Hypertension Sister Colon cancer, Onset Age: 63 Social History Household Members: Children Housing: House Do you presently have visiting nurse or other home services: Yes Alcohol intake: never Patient Tobacco Use Status: Never used Tobacco Tobacco use type: Cigarette e-Cigarette/Vaping Use: Never Used Second Hand Smoke Exposure: No Advance Directives Date on File: 03/11/23 service: No Current occupational status: unemployed Sexual orientation: Straight/Heterosexual Gender identity: Female Cognitive needs: No Hearing needs: No Vision needs: No Female Reproductive History Menstrual Age of Menarche: 13 Questionnaire PHQ-9 Over the last 2 weeks, how often have you been bothered by any of the following problems? 1. Little interest or pleasure in doing things: not at all 2. Feeling down, depressed, or hopeless: not at all 3. Trouble falling or staying asleep, or sleeping too much: nearly every day 4. Feeling tired or having little energy: nearly every day 5. Poor appetite or overeating: nearly every day 6. Feeling bad about yourself - or that you are a failure or have let yourself or your family down: nearly every day 7. Trouble concentrating on things, such as reading the newspaper or watching television: nearly every day 8. Moving or speaking so slowly that other people could have noticed. Or the opposite - being so fidgety or restless that you have been moving around a lot more than usual: nearly every day 9. Thoughts that you would be better off or of hurting yourself in some way: nearly every day Total score: 21 Depression Screening Interpretation: Positive (no suicidal thoughts) Depression Screening Follow-up: Existing condition, In treatment, Community Mental Health Worker F/U and Follow-up Visit Requested Depression Screening Done: Yes 45978 - PHQ-9 Billing: Yes Source: Developed by Drs. Tez Bowen, Bree Perez, Cesar Gonzalez and colleagues, with an educational alexia from [employer]. Thrive Questionnaire Date Thrive assessed: 10/10/24 I am a: Patient What is your living situation today?: I have a steady place to live Within the past 12 months, did the food you bought not last and you didn't have the money to get more?: I choose not to answer this question Within the past 12 months, did you worry whether your food would run out before you got money to buy more?: I choose not to answer this question Do you have trouble paying for medicines?: No Do you have trouble getting transportation to medical appointments?: No Do you have trouble paying your heating and electricity bill?: No Do you have trouble taking care of your child, family member or friend?: No Do you have trouble with day-to-day activities such as bathing, preparing meals, shopping, managing finances, etc.?: No Are you currently unemployed and looking for a job?: Yes Are you interested in more education?: Yes Please select the resources that you would like help with: Daily support Currently or been in a relationship where the following occur: I choose not to answer THRIVE Score: 0 DICKSON-7 AMB Questionnaire DICKSON-7 Date DICKSON - 7 assessed: 10/10/24 Source: Developed by Drs. Tez Bowen, Bree Perez, Cesar Gonzalez and colleagues, with an educational alexia from [employer]. Review of Systems Const All systems reviewed & are unremarkable except as noted in HPI and below Card Denies chest pain at rest, Denies chest pain with activity, Denies edema, Denies irregular heart rhythm, Denies claudication, Denies dyspnea, Denies dyspnea on exertion, Denies orthopnea, Denies paroxysmal nocturnal dyspnea and Denies slow heart rate Resp Denies cough, Denies dyspnea and Denies dyspnea on exertion Physical exam (Primary Care) Vital Signs: Last Vital Signs Pulse 92 02/11/25 07:46 BP 114/72 02/11/25 07:46 Pulse Ox 99 02/11/25 07:46 Oxygen Delivery Method Room Air 02/11/25 07:46 BMI result Body Mass Index 31.5 BMI Assessment/Plan discussion: High BMI High, discussed plan: lifestyle, weight reduction, dietary and physical activity Tobacco/Smoking Status: Tobacco use Status Tobacco use date assessed 12/14/24 02/11/25 07:46 Patient Tobacco Use Status Never used Tobacco 02/11/25 07:46 Tobacco use type Cigarette 02/11/25 07:48 e-Cigarette/Vaping Use Never Used 02/11/25 07:46 PHQ-9: PHQ-9 Score PHQ-9: Total score 21 02/11/25 07:59 Depression Screening Interpretation: Positive (no suicidal thoughts) Depression Screening Follow-up: Existing condition, In treatment, Community Mental Health Worker F/U and Follow-up Visit Requested Thrive Assessment: Date of Thrive Assessment Date Thrive assessed 10/10/24 02/11/25 07:46 Currently or been in a relationship where the following occur: I choose not to answer Resp Effort & Inspection: normal respiratory effort Auscultation: clear to auscultation bilaterally Cardio Jugular venous distension: no JVD Rate: regular rate Rhythm: regular rhythm Heart sounds: S1 normal heart sound present and S2 normal heart sound present Extrem General: Yes full ROM Results AMB Hemoglobin A1c AMB Hemoglobin A1c 8.3 % Last Edit by Clarice Chavez CMA on 02/11/25 07:59 Results Reviewed Results Reviewed: Laboratory Last Values Hgb A1c (Clinic) 8.3 % (4.0-6.0) H 02/11/25 07:48 Coding Level of Care Code Complex visit Add On G2211 Diagnoses Essential hypertension I10 Hyperlipidemia LDL goal <70 E78.5 Type 2 diabetes mellitus without complication, without long-term current use of insulin E11.9 Diabetes mellitus type: type 2 Diabetes mellitus fdc insulin use: without continuous churn buttermaker use Diabetes mellitus complication status: without complication Dysphagia R13.10 Abscess L02.91 Hypogammaglobulinemia D80.1 Psoriasis L40.9 Additional Codes PHQ-9 - 42177 - PHQ-9 Billing: Yes ([id number]) Time Spent (min) 24 Assessment & Plan Assessment & Plan (1) Essential hypertension: Code(s): I10 - Essential (primary) hypertension Category: Medical (2) Hyperlipidemia LDL goal <70: Code(s): E78.5 - Hyperlipidemia, unspecified Category: Medical (3) Diabetes mellitus: Code(s): E11.9 - Type 2 diabetes mellitus without complications Category: Medical Qualifiers: Diabetes mellitus type: type 2 Diabetes mellitus fdc insulin use: without continuous churn buttermaker use Diabetes mellitus complication status: without complication Qualified Code(s): E11.9 - Type 2 diabetes mellitus without complications (4) Dysphagia: Code(s): R13.10 - Dysphagia, unspecified Category: Medical (5) Abscess: Code(s): L02.91 - Cutaneous abscess, unspecified Category: Medical (6) Hypogammaglobulinemia: Code(s): D80.1 - Nonfamilial hypogammaglobulinemia Category: Medical (7) Psoriasis: Code(s): L40.9 - Psoriasis, unspecified Category: Medical Plan Plan 1. Abscess Of Skin The patient reports a growing lesion on her face with associated pain, for which a previously prescribed antibiotic was ineffective. A new, stronger antibiotic will be prescribed, and it was noted this medication might interact with her lisinopril. She was advised she could pause the lisinopril if the pharmacy raises concerns. A CT scan will be ordered to evaluate the area. A referral will be made to surgery for possible removal of the abscess. 2. Esophageal Obstruction The patient reports recurrent esophageal obstruction, leading to dysphagia with solids and an exclusively liquid diet. A message will be sent to gastroenterology to see if her appointment can be moved up. 3. Type 2 Diabetes Mellitus The patient is currently on Mounjaro 10 mg. The dose will be increased to 12.5 mg, with the prescription sent now for the following month to account for potential delays. Additionally, the Trulicity dose will be increased slightly. 4. Hyperlipidemia The patient's fenofibrate for triglycerides will be discontinued as it is no longer needed. 5. Proteinuria The patient takes lisinopril for proteinuria. A urinalysis and other non-fasting labs will be ordered to re-evaluate. 6. Hypogammaglobulinemia Urine immunofixation and serum light chains ordered. Orders: Orders AMB Hemoglobin A1c Today Z13.9 - Encounter for screening, unspecified Immunofixation, 24Hr Urine Today R77.8 - Other specified abnormalities of plasma proteins CT sinus wo IV con Today J34.89 - Other specified disorders of nose and nasal sinuses [place]/Lambda Light Chain Serum Today D80.1 - Nonfamilial hypogammaglobulinemia Microalbumin, Random (w Creat) 4 Months R80.9 - Proteinuria, unspecified Comprehensive [place]. Panel Fast 4 Months E11.9 - Type 2 diabetes mellitus without complications Lipid Panel 4 Months E78.5 - Hyperlipidemia, unspecified Vitamin D 25-OH Total 4 Months E55.9 - Vitamin D deficiency, unspecified Referrals General Surgery Referral L02.91 - Cutaneous abscess, unspecified Medications: New tirzepatide (Mounjaro) 12.5 mg (0.5 mL) subcut QWEEK 2 mL 0RF 4 weeks E11.9 - Type 2 diabetes mellitus without complications sulfamethoxazole-trimethoprim 800-160 mg (Bactrim DS) 1 tab PO BID 20 tabs 0RF 10 days Discontinued doxycycline hyclate Discontinued Reason: Patient Completed Course 100 mg PO BID 10 days 20 caps 0RF L72.3 - Sebaceous cyst tirzepatide (Mounjaro) Discontinued Reason: Patient Completed Course 10 mg (0.5 mL) subcut QWEEK 4 weeks 2 mL 0RF E11.9 - Type 2 diabetes mellitus without complications fenofibrate Discontinued Reason: Patient Completed Course 54 mg PO DAILY 90 tabs 0RF E78.5 - Hyperlipidemia, unspecified
[2025-02-11 07:46] VITALS: BP 114/72; PULSE 92; O2SAT 99; BMI 31.5
--- OUTSIDE RECORDS SUMMARY | 2025-02-11 07:46 | XMS_ITS | Data Portability ---
Author Organization [place] - [facility], Allergy Address [address] [place] [id number] Care Team Providers Care Pattern Marker Name Role Phone TAMIA HERMAN Referring Provider [...] Address Organization Details Recorded Time Chronic rhinitis 34224907 Active 2015 Chronic rhinitis; Note: Date Diagnosed: 10/23/2015 4:13 PM (J31.0) Not Available [facility] 02:50:32 Allergic rhinitis caused by pollen 83204941 Active 2015 Allergic rhinitis due to pollen; Note: Date Diagnosed: 11/18/2015 10:39 AM (J30.1) Not Available [facility] 4 02:50:33 Deviated nasal septum 408067066 Active 2016 Deviated nasal septum; Note: Date Diagnosed: 05/06/2016 9:16 AM (J34.2) Not Available [facility] 4 02:50:30 Allergic rhinitis 32213438 Active 2016 Other allergic rhinitis; Note: Date Diagnosed: 05/06/2016 9:16 AM (J30.89) Perennia l allergic rhinitis; Note: Date Diagnosed: 11/18/2015 10:39 AM (J30.89) ; Start Date : 11/18/2015 Not Available [facility] 4 02:50:28 Asthma 686267195 Active 2016 Other asthma; Note: Date Diagnosed: 05/06/2016 9:16 AM (J45.998) Not Available [facility] 4 02:50:30 Obstructi ve sleep apnea syndrome 02487796 Active 2016 Obstructiv e sleep apnea (adult) (pediatric ); Note: Date Diagnosed: 05/06/2016 9:16 AM (G47.33) Not Available [facility] 4 02:50:31 Sensorine ural hearing loss of bilateral ears 660242165 Active 2024 NARESH LINO [address], [address] , [facility] 5 10:08:59 Problem Notes None recorded. Procedures Surgical History Date Name Laterality Status Provider Name and Address Organization Details Recorded Time 03/28/2024 Comp Audio with Tymps - 83512 & 30594 completed NARESH LINO, [address], [address], [facility] 03/28/2024 10:08:52 Imaging Results None recorded. Procedure Notes None recorded. Medical Equipment None Reported. Medications Name Sig Start Date Stop Date Status Note LastModified by Organization Details LastModified Time cyclobenza salo 10 mg tablet 2015 active Medicatio n ID: [id number] Du ration Value: 30 Brand Name: cyclobenz aprine Se nd Method: E-Prescri bed Subs Allowed: subs OK Medica tionGener icName: cyclobenz aprine Not Available Not Available Not Available Qvar 80 mcg/actuat ion Metered Aerosol oral inhaler 2015 active Medicatio n ID: [id number] Du ration Value: 30 Brand Name: Qvar Send Method: E-Prescri bed Subs Allowed: subs OK Specia l Instructi on: TK 1 PUFF PO BID WITH SPACER FOR 30 DAYS Medi cationGen ericName: Qvar Not Available Not Available Not Available gabapentin 600 mg tablet 2015 active Medicatio n ID: [id number] Du ration Value: 30 Brand Name: gabapenti n Send Method: E-Prescri bed Subs Allowed: subs OK Specia l Instructi on: TK 1 T PO TID Medic ationGene ricName: gabapenti n Not Available Not Available Not Available propranolo l 80 mg tablet 2015 active Medicatio n ID: [id number] Br and Name: propranol ol Send Method: [...] nebulizati on 2015 active Medicatio n ID: [id number] Du ration Value: 25 Brand Name: Albuterol [...] mg tablet 2015 active Medicatio n ID: [id number] Du ration Value: 30 Brand Name: butalbita l-acetami nophen-ca ff Send Method: E-Prescri bed Subs Allowed: subs OK Specia l Instructi on: TK 1 T PO QD PRF PAZ Medica tionGener icName: butalbita l-acetami nophen-ca ff Not Available Not Available Not Available Medrol 4 mg tablet 2015 active Medicatio n ID: [id number] Br and Name: Medrol Se nd Method: [...] nasal spray 2015 active Medicatio n ID: [id number] Du ration Value: 30 Brand Name: flunisoli de Send Method: E-Prescri bed Subs Allowed: subs OK Specia l Instructi on: INL ONCE IEN D Medicat ionGeneri cName: flunisoli de Not Available Not Available Not Available paroxetine 20 mg tablet 2015 active Medicatio n ID: [id number] Du ration Value: 30 Brand Name: paroxetin [...] mg tablet 2015 active Medicatio n ID: [id number] Br and Name: Tylenol-C odeine #3 Send [...] mg tablet 2015 active Medicatio n ID: [id number] Du ration Value: 30 Brand Name: oxybutyni [...] mg capsule 2015 active Medicatio n ID: [id number] Br and Name: phentermi ne Send Method: E-Prescri bed Subs Allowed: subs OK Medica tionGener icName: phentermi ne Not Available Not Available Not Available loratadine 10 mg tablet TAKE 1 TABLET BY MOUTH DAILY active Not Available Not Available No t Available risperidon e 0.5 mg tablet 2015 active Medicatio n ID: [id number] Du ration Value: 30 Brand Name: risperido ne Send Method: E-Prescri bed Subs Allowed: subs OK Specia l Instructi on: TK 1 T PO QHS Medic ationGene ricName: risperido ne Not Available Not Available Not Available oxycodone 5 mg tablet 2015 active Medicatio n ID: [id number] Du ration Value: 3 Brand Name: oxycodone [...] mg tablet 2015 active Medicatio n ID: [id number] Du ration Value: 30 Brand Name: Vesicare Send Method: E-Prescri bed Subs Allowed: subs OK Specia l Instructi on: TK 1 T PO D Medicat ionGeneri cName: Vesicare Not Available Not Available Not Available Colace 2015 active Medicatio n ID: [id number] Br and Name: colace Se nd Method: E-Prescri bed Subs Allowed: subs OK Medica tionGener icName: colace Not Available Not Available Not Available naphazolin e 2015 active Medicatio n ID: [id number] Br and Name: naphazoli ne Send Method: E-Prescri bed Subs Allowed: subs OK Medica tionGener icName: naphazoli ne Not Available Not Available Not Available promethazi ne 2015 active Medicatio n ID: [id number] Br and Name: promethaz ine Send Method: E-Prescri bed Subs Allowed: subs OK Medica tionGener icName: promethaz ine Not Available Not Available Not Available Qvar 2015 active Medicatio n ID: [id number] Br and Name: qvar Send Method: E-Prescri bed Subs Allowed: subs OK Medica tionGener icName: qvar Not Available Not Available Not Available Xopenex HFA 45 mcg/actuat ion aerosol inhaler 2015 active Medicatio n ID: [id number] Du ration Value: 15 Brand Name: Xopenex [...] delayed release 2015 active Medicatio n ID: [id number] Du ration Value: 30 Brand Name: Dexilant Send Method: E-Prescri bed Subs Allowed: subs OK Specia l Instructi on: TK 1 C PO QPM AT SUPPER OR HS Medica tionGener icName: Dexilant Not Available Not Available Not Available lidocaine 5 % topical ointment 2015 active Medicatio n ID: [id number] Du ration Value: 15 Brand Name: lidocaine [...] Address Organization Details Last Updated DateTime 03/28/2024 292976.09 g 39.2 kg/m2 170.18 cm Clarice Roberts [...] ICD10 Code Diagnosis IMO Codes Diagnosis Note [id number] RUDY DICKSON PA-C [facility] [address] [address] 03/28/2024 09:30:25 03/28/2024 10:31:51 Sensorineural hearing loss of bilateral ears [id number] H90.3 Audiologic al evaluation results: Right ear: [...] Soto Member ID Guarantor Name 03/28/2024 1 [facility] - DOS ON OR AFTER 2022 - ONE CARE (MEDICARE REPLACEMENT/ADV ANTAGE - HMO) Simi Garza [id number] Simi Garza Notes Date Note Type Note [...] no ear surgeries. JANINE HART MD [address] [place] [address], [place], [address], [facility] - [facility] 03/28/2024 12:42:32 OBGyn Episode No OBEpisode recorded.
== END 2025-02-11 08:26 | disposition home or self-care (01) ==
LOC: HO.HMCH 07:44
PROVIDERS: PCP Internal Medicine; Visit Provider Internal Medicine
DX: I10 Essential (primary) hypertension (principal); E78.5 Hyperlipidemia, unspecified; E11.9 Type 2 diabetes mellitus without complications; R13.10 Dysphagia, unspecified; L02.91 Cutaneous abscess, unspecified; D80.1 Nonfamilial hypogammaglobulinemia; L40.9 Psoriasis, unspecified

== ENCOUNTER 2025-02-11 07:43 | Outpatient (REF) | payer OTHER, SELFPAY ==
[2025-02-15 18:14] LABS: Kappa, Serum 210 mg/dL (176-443); Kappa/Lambda Ratio, Serum 1.52 (1.29-2.55); Lambda, Serum 138 mg/dL (91-240)
== END 2025-02-11 07:44 | disposition home or self-care (01) ==
LOC: HO.LAB 07:43
PROVIDERS: PCP Internal Medicine; Visit Provider Internal Medicine
DX: D80.1 Nonfamilial hypogammaglobulinemia (principal); I10 Essential (primary) hypertension; E78.5 Hyperlipidemia, unspecified; E11.9 Type 2 diabetes mellitus without complications; R13.10 Dysphagia, unspecified; L02.91 Cutaneous abscess, unspecified; L40.9 Psoriasis, unspecified
CPT/HCPCS: 36415; 83036; 83883; 96127; 99212

== ENCOUNTER 2025-02-13 09:23 | Outpatient (REF) | payer OTHER, SELFPAY | END 2025-02-13 09:24 | LOC: HO.LNP 09:23 | PROVIDERS: Visit Provider Internal Medicine | DX: R77.8 Other specified abnormalities of plasma proteins (principal) | CPT/HCPCS: 86335 ==

== ENCOUNTER 2025-02-13 13:04 | Outpatient (AMB) | payer OTHER, SELFPAY ==
[2025-02-13 13:06] VITALS: BP 165/98; PULSE 101; BMI 31.8
--- NOTE | 2025-02-13 13:06 | A.OFFVIS_ITS ---
Vital Signs 3 02/13/25 13:06 Height 5 ft 7 in Weight 203 lb BMI 31.8 BP 165/98 H Blood Pressure Location Rt brachial Position Sitting Pulse 101 H Intake Visit Reasons: Cutaneous abscess Intake Note: Patient referred by PCP Dr. Diaz Aburto for assessment of abscess on Lt post thigh. Present for about 3mo. Patient c/o: very painful. Previously treated w/ Doxycycline which did not help. Currently on Bactrim DS for 10d. Perinatal Educator Required: Yes Perinatal Educator Language: Turkish Information Interpreted: non-clinical & clinical ([facility] [place] translator[place] Accompanied by: sister Heidi Sha sister Allergies bee pollen (BEE STINGS) Allergy (Intermediate, Verified 02/13/25 13:11) RASH SWELLING PAIN FULL. phentermine Allergy (Intermediate, Verified 02/13/25 13:11) ANXIETY tramadol Allergy (Intermediate, Verified 02/13/25 13:11) stomach upset adhesive tape (ADHESIVE TAPE) Allergy (Mild, Verified 02/13/25 13:11) RASH oxycodone (OXYCODONE) Adverse Reaction (Intermediate, Verified 02/13/25 13:11) VOMITING acetaminophen (From Percocet) Adverse Reaction (Verified 02/13/25 13:11) Vomiting apremilast (From Otezla) Adverse Reaction (Verified 02/13/25 13:11) diarrhea, nausea Medication List - Last Reconciled 02/13/25 by Tomas Quintanilla MD acetaminophen 1,000 mg (2 x 500 mg) PO Q8H PRN aspirin (Adult Aspirin Regimen) 81 mg PO DAILY 90 days bacitracin 1 appl topical TID blood sugar diagnostic (OneTouch Ultra Test strips) Use 1 test strip once a day blood-glucose meter (OneTouch Ultra2 Meter) As directed clobetasol 0.05% 1 appl topical BID cyclobenzaprine 10 mg PO TID diclofenac sodium 1% (Arthritis Pain (diclofenac)) 2 grams topical QID 30 days empagliflozin (Jardiance) 25 mg PO DAILY 90 days epinephrine IM ONCE esomeprazole magnesium 20 mg PO DAILY fluticasone propion-salmeterol 115-21 mcg/actuation (Advair HFA) 2 puffs PO BID gabapentin 300 mg PO BID ibuprofen 400 mg PO Q6H PRN ipratropium bromide 2 sprays intranasal TID-QID PRN 30 days ixekizumab (Taltz Autoinjector (3 Pack)) mg subcut ketoconazole 2% topical lancets (OneTouch UltraSoft 2 Lancet) Use 1 lancet once a day levocetirizine 5 mg PO DAILY linaclotide 72 mcg PO DAILY lisinopril 5 mg PO DAILY loratadine 10 mg PO DAILY PRN lorazepam 1 mg PO TID PRN meclizine 25 mg PO BID PRN meclizine 25 mg PO DAILY PRN metoprolol succinate ER 50 mg PO DAILY nebulizers (Aeroneb Go Nebulizer) As directed omalizumab (Xolair) 300 mg subcut Q4W 28 days ondansetron 4 mg PO Q8H PRN paroxetine HCl 20 mg PO DAILY paroxetine HCl 10 mg PO QAM polyethylene glycol 3350 17 grams PO DAILY rosuvastatin 40 mg PO DAILY 90 days sulfamethoxazole-trimethoprim 800-160 mg (Bactrim DS) 1 tab PO BID 10 days tirzepatide (Mounjaro) 12.5 mg (0.5 mL) subcut QWEEK 4 weeks topiramate XR 100 mg PO DAILY triamcinolone acetonide 0.1% topical zolpidem 10 mg PO BEDTIME PRN HPI Comments Details: 59-year-old lady with a history of a posterior left thigh cyst comes in for evaluation. Patient reports she has had the cyst for quite some time and it episodically becomes infected. She is finishing a course of antibiotic therapy in wishes definitive excision. She denies any systemic symptoms such as fevers or chills or nausea or vomiting. [facility] Medical History Sebaceous cyst Varicose veins of both lower extremities BRCA negative Hx of acute myeloid leukemia in remission Benign paroxysmal positional vertigo Hospital discharge follow-up Abscess Essential hypertension Diabetes mellitus Migraines Hand numbness Mild persistent asthma Impaired glucose tolerance Mild recurrent major depression Herpes simplex type 2 infection Mixed hyperlipidemia Supraventricular tachycardia Left leg pain GERD (gastroesophageal reflux disease) Insomnia Left knee pain Nausea Depression with anxiety Surgical History History of cardiac catheterization History of esophagogastroduodenoscopy (EGD) Hx of colonoscopy History of removal of cyst History of surgery History of total abdominal hysterectomy History of cardiac radiofrequency ablation Family History Father Brain cancer Mother Esophageal cancer Sister Breast cancer Paternal Uncle Diabetes Hypertension Sister Colon cancer, Onset Age: 63 Social History Household Members: Children Housing: House Do you presently have visiting nurse or other home services: Yes Alcohol intake: never Patient Tobacco Use Status: Never used Tobacco Tobacco use type: Cigarette e-Cigarette/Vaping Use: Never Used Second Hand Smoke Exposure: No Advance Directives Date on File: 03/11/23 service: No Current occupational status: unemployed Sexual orientation: Straight/Heterosexual Gender identity: Female Cognitive needs: No Hearing needs: No Vision needs: No Female Reproductive History Menstrual Age of Menarche: 13 Review of Systems Const All systems reviewed & are unremarkable except as noted in HPI and below Physical Exam Vital Signs: Last Vital Signs Pulse 101 H 02/13/25 13:06 BP 165/98 H 02/13/25 13:06 BMI result Body Mass Index 31.8 Const General: cooperative, healthy appearing and comfortable Nutritional Appearance: overweight HEENT Head: Yes normal to inspection Ears: hearing grossly normal bilaterally General nose exam: Normal external nose present Eyes Pupils: Equal, round and reactive pupils present EOM: EOMs intact bilaterally Neck Neck: Yes normal visual inspection Chest Chest palpation & inspection: normal inspection of the chest Resp Effort & Inspection: normal respiratory effort Cardio Rate: regular rate Rhythm: regular rhythm GI Inspection: Yes normal to inspection Neuro Cranial nerves: Yes Equal, round and reactive pupils present Extrem Upper/lower leg/hip images: 2 1. sebaceous cyst Assessment & Plan Assessment & Plan (1) Sebaceous cyst: Code(s): L72.3 - Sebaceous cyst Category: Medical Plan: I told the patient that I felt excision of her left posterior thigh cyst was appropriate. I reviewed with her the risks that are involved. These include but are not limited to the risk of bleeding, the risk of infection, the risk of recurrence, the risk of chronic pain and the risk of unsightly scarring. She indicated that she understood. She told me that she accepted the risks and still wished to proceed with surgery. Coding Level of Care Code New Pt Level 3 (89718) Diagnoses Sebaceous cyst L72.3 Time Spent (min) 30 Comment Patient visit record review and coordination of care time
--- OUTSIDE RECORDS SUMMARY | 2025-02-13 20:14 | XMS_ITS | Data Portability ---
Author Organization MD - [facility], Allergy Address [address] [place] [id number] Care Team Providers Care [employer] Name Role Phone TAMIA HERMAN Referring Provider [...] Address Organization Details Recorded Time Chronic rhinitis 44558377 Active 2015 Chronic rhinitis; Note: Date Diagnosed: 10/23/2015 4:13 PM (J31.0) Not Available [facility] 02:50:32 Allergic rhinitis caused by pollen 08657614 Active 2015 Allergic rhinitis due to pollen; Note: Date Diagnosed: 11/18/2015 10:39 AM (J30.1) Not Available [facility] 08/02/202 4 02:50:33 Deviated nasal septum 940979627 Active 2016 Deviated nasal septum; Note: Date Diagnosed: 05/06/2016 9:16 AM (J34.2) Not Available [facility] 4 02:50:30 Allergic rhinitis 69381937 Active 2016 Other allergic rhinitis; Note: Date Diagnosed: 05/06/2016 9:16 AM (J30.89) Perennia l allergic rhinitis; Note: Date Diagnosed: 11/18/2015 10:39 AM (J30.89) ; Start Date : 11/18/2015 Not Available [facility] 4 02:50:28 Asthma 399316048 Active 2016 Other asthma; Note: Date Diagnosed: 05/06/2016 9:16 AM (J45.998) Not Available [facility] 4 02:50:30 Obstructi ve sleep apnea syndrome 21832637 Active 2016 Obstructiv e sleep apnea (adult) (pediatric ); Note: Date Diagnosed: 05/06/2016 9:16 AM (G47.33) Not Available [facility] 4 02:50:31 Sensorine ural hearing loss of bilateral ears 138835554 Active 2024 [address]O [address], [address] , [facility] 5 10:08:59 Problem Notes None recorded. Procedures Surgical History Date Name Laterality Status Provider Name and Address Organization Details Recorded Time 03/28/2024 Comp Audio with Tymps - 73222 & 09608 completed NARESH LINO, [address], [address], [facility] 03/28/2024 10:08:52 Imaging Results None recorded. Procedure Notes None recorded. Medical Equipment None Reported. Medications Name Sig Start Date Stop Date Status Note LastModified by Organization Details LastModified Time cyclobenza salo 10 mg tablet 2015 active Medicatio n ID: [id number] Du ration Value: 30 Brand Name: cyclobenz aprine Se nd Method: E-Prescri bed Subs Allowed: subs OK Medica tionGener icName: cyclobenz aprine Not Available Not Available Not Available Qvar 80 mcg/actuat ion Metered Aerosol oral inhaler 2015 active Medicatio n ID: [id number] Du ration Value: 30 Brand Name: Qvar Send Method: E-Prescri bed Subs Allowed: subs OK Specia l Instructi on: TK 1 PUFF PO BID WITH SPACER FOR 30 DAYS Medi cationGen ericName: Qvar Not Available Not Available Not Available gabapentin 600 mg tablet 2015 active Medicatio n ID: [id number] Du ration Value: 30 Brand Name: gabapenti n Send Method: E-Prescri bed Subs Allowed: subs OK Specia l Instructi on: TK 1 T PO TID Medic ationGene ricName: gabapenti n Not Available Not Available Not Available propranolo l 80 mg tablet 2015 active Medicatio n ID: [id number] Br and Name: propranol ol Send Method: [...] nebulizati on 2015 active Medicatio n ID: [id number] Du ration Value: 25 Brand Name: Albuterol [...] mg tablet 2015 active Medicatio n ID: [id number] Du ration Value: 30 Brand Name: butalbita l-acetami nophen-ca ff Send Method: E-Prescri bed Subs Allowed: subs OK Specia l Instructi on: TK 1 T PO QD PRF PAZ Medica tionGener icName: butalbita l-acetami nophen-ca ff Not Available Not Available Not Available Medrol 4 mg tablet 2015 active Medicatio n ID: [id number] Br and Name: Medrol Se nd Method: [...] nasal spray 2015 active Medicatio n ID: [id number] Du ration Value: 30 Brand Name: flunisoli de Send Method: E-Prescri bed Subs Allowed: subs OK Specia l Instructi on: INL ONCE IEN D Medicat ionGeneri cName: flunisoli de Not Available Not Available Not Available paroxetine 20 mg tablet 2015 active Medicatio n ID: [id number] Du ration Value: 30 Brand Name: paroxetin [...] mg tablet 2015 active Medicatio n ID: [id number] Br and Name: Tylenol-C odeine #3 Send [...] mg tablet 2015 active Medicatio n ID: [id number] Du ration Value: 30 Brand Name: oxybutyni [...] mg capsule 2015 active Medicatio n ID: [id number] Br and Name: phentermi ne Send Method: E-Prescri bed Subs Allowed: subs OK Medica tionGener icName: phentermi ne Not Available Not Available Not Available loratadine 10 mg tablet TAKE 1 TABLET BY MOUTH DAILY active Not Available Not Available No t Available risperidon e 0.5 mg tablet 2015 active Medicatio n ID: [id number] Du ration Value: 30 Brand Name: risperido ne Send Method: E-Prescri bed Subs Allowed: subs OK Specia l Instructi on: TK 1 T PO QHS Medic ationGene ricName: risperido ne Not Available Not Available Not Available oxycodone 5 mg tablet 2015 active Medicatio n ID: [id number] Du ration Value: 3 Brand Name: oxycodone [...] mg tablet 2015 active Medicatio n ID: [id number] Du ration Value: 30 Brand Name: Vesicare Send Method: E-Prescri bed Subs Allowed: subs OK Specia l Instructi on: TK 1 T PO D Medicat ionGeneri cName: Vesicare Not Available Not Available Not Available Colace 2015 active Medicatio n ID: [id number] Br and Name: colace Se nd Method: E-Prescri bed Subs Allowed: subs OK Medica tionGener icName: colace Not Available Not Available Not Available naphazolin e 2015 active Medicatio n ID: [id number] Br and Name: naphazoli ne Send Method: E-Prescri bed Subs Allowed: subs OK Medica tionGener icName: naphazoli ne Not Available Not Available Not Available promethazi ne 2015 active Medicatio n ID: [id number] Br and Name: promethaz ine Send Method: E-Prescri bed Subs Allowed: subs OK Medica tionGener icName: promethaz ine Not Available Not Available Not Available Qvar 2015 active Medicatio n ID: [id number] Br and Name: qvar Send Method: E-Prescri bed Subs Allowed: subs OK Medica tionGener icName: qvar Not Available Not Available Not Available Xopenex HFA 45 mcg/actuat ion aerosol inhaler 2015 active Medicatio n ID: [id number] Du ration Value: 15 Brand Name: Xopenex [...] delayed release 2015 active Medicatio n ID: [id number] Du ration Value: 30 Brand Name: Dexilant Send Method: E-Prescri bed Subs Allowed: subs OK Specia l Instructi on: TK 1 C PO QPM AT SUPPER OR HS Medica tionGener icName: Dexilant Not Available Not Available Not Available lidocaine 5 % topical ointment 2015 active Medicatio n ID: [id number] Du ration Value: 15 Brand Name: lidocaine [...] Address Organization Details Last Updated DateTime 03/28/2024 176732.09 g 39.2 kg/m2 170.18 cm Clarice Roberts MA - [facility] 03/28/2024 10:24:20 Social History None recorded. Functional Status None recorded. Mental Status None recorded. Family History Nothing Reported. Medical History No medical history recorded. Gynecological HistoryNo gynecological history recorded. Obstetrics History GPAL:G 0 P 0 0 0 0 Past Encounters Encounter ID Performer Location Encounter Start Date Encounter Closed Date Diagnosis/Indication Diagnosis SNOMED-CT Code Diagnosis ICD10 Code Diagnosis IMO Codes Diagnosis Note [id number] RUDY DICKSON PA-C [facility] [address] [phone] 03/28/2024 09:30:25 03/28/2024 10:31:51 Sensorineural hearing loss of bilateral ears [id number] H90.3 Audiologic al evaluation results: Right ear: [...] Soto Member ID Guarantor Name 03/28/2024 1 [facility] - DOS ON OR AFTER 2022 - ONE CARE (MEDICARE REPLACEMENT/ADV ANTAGE - HMO) Simi Garza [id number] Simi Garza Notes Date Note Type Note [...] no ear surgeries. JANINE HART MD [address] [place] [address], [place], [address], [facility] - [facility] 03/28/2024 12:42:32 OBGyn Episode No OBEpisode recorded.
== END 2025-02-13 13:24 | disposition home or self-care (01) ==
LOC: HO.HGS 13:05
PROVIDERS: PCP Internal Medicine; Visit Provider Surgery
DX: L72.3 Sebaceous cyst (principal)
CPT/HCPCS: 99204

== ENCOUNTER 2025-02-18 08:51 | Outpatient (AMB) | payer OTHER, SELFPAY ==
[2025-02-18 09:17] VITALS: BP 110/82; PULSE 95; BMI 31.5
--- NOTE | 2025-02-18 09:17 | A.OFFVIS_ITS ---
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 phentermine Allergy (Intermediate, Verified 02/18/25 09:20) ANXIETY tramadol Allergy (Intermediate, Verified 02/18/25 09:20) stomach upset adhesive tape (ADHESIVE TAPE) Allergy (Mild, Verified 02/18/25 09:20) RASH oxycodone (OXYCODONE) Adverse Reaction (Intermediate, Verified 02/18/25 09:20) VOMITING acetaminophen (From Percocet) Adverse Reaction (Verified 02/18/25 09:20) Vomiting apremilast (From Otezla) Adverse Reaction (Verified 02/18/25 09:20) diarrhea, nausea Medication List - Last Reconciled 02/18/25 by Mary Gardner NP-C acetaminophen 1,000 mg (2 x 500 mg) PO Q8H PRN aspirin (Adult Aspirin Regimen) 81 mg PO DAILY 90 days bacitracin 1 appl topical TID blood sugar diagnostic ([employer] Ultra Test strips) Use 1 test strip once a day blood-glucose meter ([employer] Ultra2 Meter) As directed clobetasol 0.05% 1 appl topical BID cyclobenzaprine 10 mg PO TID diclofenac sodium 1% (Arthritis Pain (diclofenac)) 2 grams topical QID 30 days empagliflozin (Jardiance) 25 mg PO DAILY 90 days epinephrine IM ONCE esomeprazole magnesium 20 mg PO DAILY fluticasone propion-salmeterol 115-21 mcg/actuation (Advair HFA) 2 puffs PO BID furosemide 20 mg PO DAILY gabapentin 300 mg PO BID ibuprofen 400 mg PO Q6H PRN ipratropium bromide 2 sprays intranasal TID-QID PRN 30 days ixekizumab (Taltz Autoinjector (3 Pack)) mg subcut ketoconazole 2% topical lancets ([employer] UltraSoft 2 Lancet) Use 1 lancet once a day levocetirizine 5 mg PO DAILY linaclotide 72 mcg PO DAILY lisinopril 5 mg PO DAILY loratadine 10 mg PO DAILY PRN lorazepam 1 mg PO TID PRN meclizine 25 mg PO BID PRN meclizine 25 mg PO DAILY PRN metoprolol succinate ER 50 mg PO DAILY nebulizers (Aeroneb Go Nebulizer) As directed omalizumab (Xolair) 300 mg subcut Q4W 28 days omeprazole 20 mg PO DAILY ondansetron 4 mg PO Q8H PRN paroxetine HCl 20 mg PO DAILY paroxetine HCl 10 mg PO QAM polyethylene glycol 3350 17 grams PO DAILY rosuvastatin 40 mg PO DAILY 90 days sulfamethoxazole-trimethoprim 800-160 mg (Bactrim DS) 1 tab PO BID 10 days tirzepatide (Mounjaro) 12.5 mg (0.5 mL) subcut QWEEK 4 weeks topiramate XR 100 mg PO DAILY triamcinolone acetonide 0.1% topical zolpidem 10 mg PO BEDTIME PRN HPI HPI 4 mth fu after holter: Details: Simi is a 59-year-old female past medical history of hypertension, hyperlipidemia, diabetes, obesity, asthma, SVT who recently had echocardiogram showing EF 45-50% and mildly reduced RV systolic function. She underwent cardiac catheterization showing normal coronary arteries. Recent holter monitoring is showing frequent sinus tachycardia. She now presents for follow-up. Today she reports that she is still noticing shortness of breath and rapid heart beating with activities. She says she tires very easily when she tries to do things. She will have lightheadedness and unsteadiness at times that she relates to vertigo. She is not having chest pain or pressure. She has no concerning symptoms at rest. She uses CPAP at night and sleeps with her head of the bed elevated. Takes meds as directed and hydrates well. She has upcoming procedure to have abscess removed from her left thigh. 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 [facility] Medical History Sebaceous cyst Varicose veins of both lower extremities BRCA negative Hx of acute myeloid leukemia in remission Benign paroxysmal positional vertigo Hospital discharge follow-up Abscess Essential hypertension Diabetes mellitus Migraines Hand numbness Mild persistent asthma Impaired glucose tolerance Mild recurrent major depression Herpes simplex type 2 infection Mixed hyperlipidemia Supraventricular tachycardia Left leg pain GERD (gastroesophageal reflux disease) Insomnia Left knee pain Nausea Depression with anxiety Surgical History History of cardiac catheterization History of esophagogastroduodenoscopy (EGD) Hx of colonoscopy History of removal of cyst History of surgery History of total abdominal hysterectomy History of cardiac radiofrequency ablation Family History Father Brain cancer Mother Esophageal cancer Sister Breast cancer Paternal Uncle Diabetes Hypertension Sister Colon cancer, Onset Age: 63 Social History Household Members: Children Housing: House Do you presently have visiting nurse or other home services: Yes Alcohol intake: never Patient Tobacco Use Status: Never used Tobacco Tobacco use type: Cigarette e-Cigarette/Vaping Use: Never Used Second Hand Smoke Exposure: No Advance Directives Date on File: 03/11/23 service: No Current occupational status: unemployed Sexual orientation: Straight/Heterosexual Gender identity: Female Cognitive needs: No Hearing needs: No Vision needs: No Female Reproductive History Menstrual Age of Menarche: 13 Review of Systems Const All systems reviewed & are unremarkable except as noted in HPI and below Reports fatigue ENT Denies dizziness Card Details: heart palpitations Denies chest pain, Denies chest pain at rest, Denies chest pain with activity, Reports rapid heart rate, Denies pedal edema, Denies edema, Denies leg edema, Denies lightheadedness, Denies palpitations, Denies dyspnea, Reports dyspnea on exertion and Denies orthopnea Resp Denies cough, Denies dyspnea and Reports dyspnea on exertion GI Denies hematochezia and Denies change in stool character Musc Denies abnormal gait, Denies limited range of motion, Denies muscle cramps, Denies muscle weakness, Denies numbness, Denies radiating pain into limb, Denies stiffness and Denies tingling Neuro Denies abnormal gait, Denies dizziness, Denies numbness and Denies tingling Endo Reports fatigue and Denies palpitations Physical Exam Vital Signs: Last Vital Signs Pulse 95 02/18/25 09:17 BP 110/82 02/18/25 09:17 BMI result Body Mass Index 31.5 Const General: cooperative, healthy appearing, comfortable and no acute distress Orientation/consciousness: patient oriented x3 Neck Neck: Yes normal visual inspection Resp Effort & Inspection: normal respiratory effort Auscultation: clear to auscultation bilaterally, no rales, no rhonchi and no wheezes Cardio Rate: regular rate Rhythm: regular rhythm Heart sounds: S1 normal heart sound present, S2 normal heart sound present, no gallops, no murmurs and no rubs Neuro General: patient oriented x3 Extrem General: Yes normal to inspection and No no pedal edema Psych Appearance: grossly normal Mental Status: mental status grossly normal Speech and movement: Normal speech and movement present Office Procedures EKG Details: Today, read by me, normal sinus rhythm, rate 95, QTC 472 milliseconds [id number], Complete Assessment & Plan Assessment & Plan (1) Sinus tachycardia: Code(s): R00.0 - Tachycardia, unspecified Category: Medical Plan: Reports of heart palpitations leading to Holter monitor 10/25/2024 showing sinus rhythm with average heart rate 98 beats per minute, 34% of the time heart rate greater than 100, rare supraventricular and ventricular ectopy. Known prior history of SVT. She is reporting rapid heartbeats especially with physical activity most consistent with her sinus tachycardia. Echo has mildly reduced EF. Reviewed the need for good hydration, caffeine reduction. Will increase metoprolol XL up to 75 mg daily from 50 mg daily. Instructed to call if symptoms persist. Cardiology follow-up 3-4 months, sooner if needed. (2) Shortness of breath: Code(s): R06.02 - Shortness of breath Category: Medical Plan: Prior reports of shortness of breath and chest tightness. 2 ER evaluations without acute findings. Echo done on 09/12/2024 showed EF 45-50%, mild decrease in the RV systolic function, with mildly elevated right atrial pressure. Cardiac catheterization done 09/25/2024 showing normal coronary arteries with mid LAD bridge. Test results reviewed with her in detail. She has mild cardiomyopathy which is nonischemic. She does not appear fluid overloaded on exam today. Recommend she continue to follow with pulmonology for treatment of asthma/COPD. Ongoing medical manage for her mild cardiomyopathy. (3) Cardiomyopathy: Code(s): I42.9 - Cardiomyopathy, unspecified Category: Medical Plan: Nonischemic cardiomyopathy, which is newer finding for her. No clear cause at this time. Holter is showing frequent sinus tachycardia which can be contributing. We will be increasing metoprolol dose. Continue lisinopril for neurohormonal modulation. Continue CPAP use. Blood pressure currently well controlled. Signs and symptoms of heart failure reviewed with her. (4) Supraventricular tachycardia: Code(s): I47.1 - Supraventricular tachycardia Category: Medical Plan: History of supraventricular tachycardia. No recent documented episodes or reported symptoms of heart palpitations. Continue metoprolol. (5) Essential hypertension: Code(s): I10 - Essential (primary) hypertension Category: Medical Plan: Blood pressure goal less than 130/80. Normal at this time. Continue lisinopril, increasing metoprolol. (6) Hyperlipidemia LDL goal <70: Code(s): E78.5 - Hyperlipidemia, unspecified Category: Medical Plan: [place] LDL goal less than 70 in patient with diabetes. Continue on rosuvastatin. (7) S/P cardiac catheterization: Comment: 09/25/2024, normal coronary arteries, mid LAD bridge Code(s): Z98.890 - Other specified postprocedural states Category: Surgical Plan: Right radial catheterization site well healed Plan I reviewed the results of her recent 3-day Holter monitor, which confirmed a persistent sinus tachycardia with an average heart rate of 98 bpm. We discussed that while there is no clear underlying reason for her fast heart rate, we would manage it with medication to control her symptoms of palpitations and fatigue. I advised increasing her metoprolol dose from 50 mg to 75 mg daily and counseled her to call if she experienced symptoms of low blood pressure or if her palpitations did not improve. I provided her cardiac clearance for her upcoming surgery to remove an abscess on her left thigh. We will plan to follow up in 3-4 months, and I instructed her to contact us sooner if needed. Patient Instructions: - You should increase your metoprolol dose to 75 mg once a day. - You are cleared to proceed with your planned surgery for the abscess on your thigh. - Please call our office if your palpitations do not improve with the new medication dose. - Let us know if you experience any side effects like dizziness or lightheadedness, which could be from low blood pressure. - Please schedule a follow-up appointment in about 3 to 4 months, or call us sooner if you have any concerns. Patient was informed and verbally consented to the use of an ambient scribe for clinic note documentation during this visit. Visit time spent on chart review, interview, assessment, orders, documentation. Coding Level of Care Code Est Pt Level 4 (71757) Add On Problem Visit Only Diagnoses Sinus tachycardia R00.0 Shortness of breath R06.02 Cardiomyopathy I42.9 Supraventricular tachycardia I47.1 Essential hypertension I10 Hyperlipidemia LDL goal <70 E78.5 S/P cardiac catheterization Z98.890 CPT Codes EKG - CPT: [id number], Complete ([id number]) Time Spent (min) 28
== END 2025-02-18 09:51 | disposition home or self-care (01) ==
LOC: HO.HCS 08:52
PROVIDERS: PCP Internal Medicine; Visit Provider Nurse Practitioner Family
DX: R00.0 Tachycardia, unspecified (principal); R06.02 Shortness of breath; I42.9 Cardiomyopathy, unspecified; I47.10 Supraventricular tachycardia, unspecified; I10 Essential (primary) hypertension; E78.5 Hyperlipidemia, unspecified; Z98.890 Other specified postprocedural states
CPT/HCPCS: 93010; 99214; G2211

== ENCOUNTER → 2025-02-18 08:51 | Outpatient (BNVA) | payer OTHER, SELFPAY | PROVIDERS: PCP Internal Medicine; Visit Provider Nurse Practitioner Family | DX: Z01.810 Encounter for preprocedural cardiovascular examination (principal); L02.416 Cutaneous abscess of left lower limb; R06.02 Shortness of breath; I42.9 Cardiomyopathy, unspecified; I47.10 Supraventricular tachycardia, unspecified; I10 Essential (primary) hypertension; E78.5 Hyperlipidemia, unspecified; Z98.890 Other specified postprocedural states | CPT/HCPCS: 93005; 99212 ==

== ENCOUNTER 2025-02-21 10:34 | Outpatient (AMB) | payer OTHER, SELFPAY ==
--- NOTE | 2025-02-21 10:45 | HO.NEPHOV ---
Vital Signs 02/21/25 10:46 Height 5 ft 7 in Weight 203 lb BMI 31.8 BP 92/62 Blood Pressure Location Rt brachial Position Sitting Pulse 95 Pulse Source Pulse Oximeter Pulse Oximetry (%) 98 Oxygen Delivery Method Room Air Intake Visit Reasons: Dec f/u w/labs [employer] Police Officer Required: Yes [employer] Police Officer Name: Tanner [phone] Accompanied by: Self / Same As Patient Allergies bee pollen (BEE STINGS) Allergy (Intermediate, Verified 02/21/25 10:47) RASH SWELLING PAIN FULL. phentermine Allergy (Intermediate, Verified 02/21/25 10:47) ANXIETY tramadol Allergy (Intermediate, Verified 02/21/25 10:47) stomach upset adhesive tape (ADHESIVE TAPE) Allergy (Mild, Verified 02/21/25 10:47) RASH oxycodone (OXYCODONE) Adverse Reaction (Intermediate, Verified 02/21/25 10:47) VOMITING acetaminophen (From Percocet) Adverse Reaction (Verified 02/21/25 10:47) Vomiting apremilast (From Otezla) Adverse Reaction (Verified 02/21/25 10:47) diarrhea, nausea Medication List - Last Reconciled 02/21/25 by Isaiah Gonzalez MD acetaminophen 1,000 mg (2 x 500 mg) PO Q8H PRN aspirin (Adult Aspirin Regimen) 81 mg PO DAILY 90 days bacitracin 1 appl topical TID blood sugar diagnostic ([employer] Ultra Test strips) Use 1 test strip once a day blood-glucose meter ([employer] Ultra2 Meter) As directed clobetasol 0.05% 1 appl topical BID cyclobenzaprine 10 mg PO TID diclofenac sodium 1% (Arthritis Pain (diclofenac)) 2 grams topical QID 30 days empagliflozin (Jardiance) 25 mg PO DAILY 90 days epinephrine IM ONCE esomeprazole magnesium 20 mg PO DAILY fluticasone propion-salmeterol 115-21 mcg/actuation (Advair HFA) 2 puffs PO BID furosemide 20 mg PO DAILY gabapentin 300 mg PO BID ibuprofen 400 mg PO Q6H PRN ipratropium bromide 2 sprays intranasal TID-QID PRN 30 days ixekizumab (Taltz Autoinjector (3 Pack)) mg subcut ketoconazole 2% topical lancets ([employer] UltraSoft 2 Lancet) Use 1 lancet once a day levocetirizine 5 mg PO DAILY linaclotide 72 mcg PO DAILY lisinopril 5 mg PO DAILY loratadine 10 mg PO DAILY PRN lorazepam 1 mg PO TID PRN meclizine 25 mg PO BID PRN meclizine 25 mg PO DAILY PRN metoprolol succinate ER 75 mg (1.5 x 50 mg) PO DAILY nebulizers (Aeroneb Go Nebulizer) As directed omalizumab (Xolair) 300 mg subcut Q4W 28 days omeprazole 20 mg PO DAILY ondansetron 4 mg PO Q8H PRN paroxetine HCl 20 mg PO DAILY paroxetine HCl 10 mg PO QAM polyethylene glycol 3350 17 grams PO DAILY rosuvastatin 40 mg PO DAILY 90 days sulfamethoxazole-trimethoprim 800-160 mg (Bactrim DS) 1 tab PO BID 10 days tirzepatide (Mounjaro) 12.5 mg (0.5 mL) subcut QWEEK 4 weeks topiramate XR 100 mg PO DAILY triamcinolone acetonide 0.1% topical zolpidem 10 mg PO BEDTIME PRN HPI Comments Details: History of Present Illness The patient is a 59 year old female presenting for a follow-up visit for proteinuria. Her kidney function is normal and stable, with a recent creatinine of 0.63. Recent laboratory results showed a slightly elevated calcium level. She has been taking vitamin D for a long time as advised by a doctor, but does not take calcium supplements. She also reports some difficulty breathing. Results - Labs: - Creatinine: 0.63. - Calcium: Mildly elevated. - Urinalysis: Positive for proteinuria. [facility] Medical History Sebaceous cyst Varicose veins of both lower extremities BRCA negative Hx of acute myeloid leukemia in remission Benign paroxysmal positional vertigo Hospital discharge follow-up Abscess Essential hypertension Diabetes mellitus Migraines Hand numbness Mild persistent asthma Impaired glucose tolerance Mild recurrent major depression Herpes simplex type 2 infection Mixed hyperlipidemia Supraventricular tachycardia Left leg pain GERD (gastroesophageal reflux disease) Insomnia Left knee pain Nausea Depression with anxiety Surgical History History of cardiac catheterization History of esophagogastroduodenoscopy (EGD) Hx of colonoscopy History of removal of cyst History of surgery History of total abdominal hysterectomy History of cardiac radiofrequency ablation Family History Father Brain cancer Mother Esophageal cancer Sister Breast cancer Paternal Uncle Diabetes Hypertension Sister Colon cancer, Onset Age: 63 Social History Household Members: Children Housing: House Do you presently have visiting nurse or other home services: Yes Alcohol intake: never Patient Tobacco Use Status: Never used Tobacco Tobacco use type: Cigarette e-Cigarette/Vaping Use: Never Used Second Hand Smoke Exposure: No Advance Directives Date on File: 03/11/23 service: No Current occupational status: unemployed Sexual orientation: Straight/Heterosexual Gender identity: Female Cognitive needs: No Hearing needs: No Vision needs: No Female Reproductive History Menstrual Age of Menarche: 13 Physical Exam Exam Exam: Physical Exam General: Awake. Comfortable. HENT: Neck supple. Mucosa moist. Pulmonary: Lungs aeration equal. No rales. Cardiology: Heart S1-S2 heard. No gallop. Abdomen: Soft. Non tender. Bowel sounds normal. Neurologic: No involuntary movements. No myoclonus. Extremities: No edema. No rash. Vital Signs: Last Vital Signs Pulse 95 02/21/25 10:46 BP 92/62 02/21/25 10:46 Pulse Ox 98 02/21/25 10:46 Oxygen Delivery Method Room Air 02/21/25 10:46 BMI result Body Mass Index 31.8 Results Reviewed Nephrology Results: Sodium, (135-145) 141 mmol/L 02/04/25 Potassium, (3.3-5.1) 4.0 mmol/L 02/04/25 Chloride, (96-108) 108 mmol/L 02/04/25 Carbon Dioxide, (22-29) 22 mmol/L 02/04/25 BUN, (9-16) 19 mg/dL H 02/04/25 Creatinine, (0.5-1.4) 0.64 mg/dL 02/04/25 Calcium, (8.4-10.2) 10.5 mg/dL H 02/04/25 PTH Intact, (8.7-77.1) 72.4 pg/mL 02/04/25 Renal US 12/11/24 Assessment & Plan Assessment & Plan (1) Essential hypertension: Code(s): I10 - Essential (primary) hypertension Category: Medical (2) Proteinuria: Code(s): R80.9 - Proteinuria, unspecified Category: Medical Plan Plan 1. Proteinuria - The patient's kidney function is stable despite the proteinuria. - She will continue taking lisinopril to help manage the protein in her urine. 2. Hypercalcemia - The patient's mild hypercalcemia is likely secondary to vitamin D supplementation. - She was advised to discontinue her vitamin D supplement, which is expected to normalize her calcium levels. 3. Dyspnea - The patient reports some trouble breathing; however, her lungs were clear to auscultation and there was no leg swelling on exam. - She has an upcoming appointment with her bearing maker this week for further evaluation. 4. Nephrology Follow-Up - Kidney function is stable. - Current medications will be continued. - A follow-up visit is scheduled in 6 months. Orders: Orders Creatinine Urine 6 Months R80.9 - Proteinuria, unspecified Total Protein Urine Random 6 Months R80.9 - Proteinuria, unspecified Basic Metabolic Panel 6 Months R80.9 - Proteinuria, unspecified UA and rflx microscopic 6 Months R80.9 - Proteinuria, unspecified Coding Level of Care Code Est Pt Level 4 (73811) Diagnoses Essential hypertension I10 Proteinuria R80.9
[2025-02-21 10:46] VITALS: BP 92/62; PULSE 95; O2SAT 98; BMI 31.8
== END 2025-02-21 11:01 | disposition home or self-care (01) ==
LOC: HO.HKA 10:35
PROVIDERS: PCP Internal Medicine; Visit Provider Internal Medicine Hypertension Specialist
DX: I10 Essential (primary) hypertension (principal); R80.9 Proteinuria, unspecified
CPT/HCPCS: 99214

== ENCOUNTER → 2025-02-21 10:34 | Outpatient (BNVA) | payer OTHER, SELFPAY | PROVIDERS: PCP Internal Medicine; Visit Provider Internal Medicine Hypertension Specialist | DX: I10 Essential (primary) hypertension (principal); R80.9 Proteinuria, unspecified; E83.52 Hypercalcemia; Z79.899 Other long term (current) drug therapy; R06.00 Dyspnea, unspecified | CPT/HCPCS: 99212 ==

== ENCOUNTER 2025-02-26 00:32 | Emergency (ER) | payer OTHER, SELFPAY ==
--- NOTE | 2025-02-26 | ECG_ITS ---
Test Reason : CP Blood Pressure : */* mmHG Vent. Rate : 131 BPM Atrial Rate : 131 BPM P-R Int : 130 ms QRS Dur : 90 ms QT Int : 316 ms P-R-T Axes : 61 8 68 degrees QTcB Int : 466 ms Sinus tachycardia Nonspecific [address] abnormality Abnormal ECG When compared with ECG of 20-Sep-2024 20:57, Vent. rate has increased by 51 bpm Nonspecific T wave abnormality no longer evident in Inferior leads Referred By: Generic ED Physician Electronically Signed By: JUN OCHOA MD
[2025-02-26 00:45] VITALS: BP 106/63; PULSE 130; RESP 20; TEMP 37.2; O2SAT 94; BMI 31.6
[2025-02-26 01:39] LABS: IDNOW Serial# 58CA691E; Strep A Nucleic Acid Negative (Negative)
[2025-02-26 01:54] LABS: Resp Syncy Virus RNA Qual PCR NEGATIVE (Negative); SARS COV2 PCR INHOUSE NEGATIVE (Negative)
--- OUTSIDE RECORDS SUMMARY | 2025-02-26 01:58 | XMS_ITS | Data Portability ---
Author Organization ID - [facility], Allergy Address [address] [place] [id number] Care Team Providers Care Black Pickler Name Role Phone TAMIA HERMAN Referring Provider [...] Address Organization Details Recorded Time Chronic rhinitis 66085469 Active 2015 Chronic rhinitis; Note: Date Diagnosed: 10/23/2015 4:13 PM (J31.0) Not Available [facility] 02:50:32 Allergic rhinitis caused by pollen 12923550 Active 2015 Allergic rhinitis due to pollen; Note: Date Diagnosed: 11/18/2015 10:39 AM (J30.1) Not Available [facility] 08/02/202 4 02:50:33 Deviated nasal septum [id number] Active 2016 Deviated nasal septum; Note: Date Diagnosed: 05/06/2016 9:16 AM (J34.2) Not Available [facility] 4 02:50:30 Allergic rhinitis [id number] Active 2016 Other allergic rhinitis; Note: Date Diagnosed: 05/06/2016 9:16 AM (J30.89) Perennia l allergic rhinitis; Note: Date Diagnosed: 11/18/2015 10:39 AM (J30.89) ; Start Date : 11/18/2015 Not Available [facility] 4 02:50:28 Asthma [id number] Active 2016 Other asthma; Note: Date Diagnosed: 05/06/2016 9:16 AM (J45.998) Not Available [facility] 4 02:50:30 Obstructi ve sleep apnea syndrome 52463559 Active 2016 Obstructiv e sleep apnea (adult) (pediatric ); Note: Date Diagnosed: 05/06/2016 9:16 AM (G47.33) Not Available [facility] 4 02:50:31 Sensorine ural hearing loss of bilateral ears [id number] Active 2024 NARESH LINO [address], [phone] , [facility] 5 10:08:59 Problem Notes None recorded. Procedures Surgical History Date Name Laterality Status Provider Name and Address Organization Details Recorded Time 03/28/2024 Comp Audio with Tymps - [id number] & [id number] completed NARESH LINO, [address], [phone], [facility] 03/28/2024 10:08:52 Imaging Results None recorded. Procedure Notes None recorded. Medical Equipment None Reported. Medications Name Sig Start Date Stop Date Status Note LastModified by Organization Details LastModified Time cyclobenza salo 10 mg tablet 2015 active Medicatio n ID: [id number] Du ration Value: 30 Brand Name: cyclobenz aprine Se nd Method: E-Prescri bed Subs Allowed: subs OK Medica tionGener icName: cyclobenz aprine Not Available Not Available Not Available Qvar 80 mcg/actuat ion Metered Aerosol oral inhaler 2015 active Medicatio n ID: [id number] Du ration Value: 30 Brand Name: Qvar Send Method: E-Prescri bed Subs Allowed: subs OK Specia l Instructi on: TK 1 PUFF PO BID WITH SPACER FOR 30 DAYS Medi cationGen ericName: Qvar Not Available Not Available Not Available gabapentin 600 mg tablet 2015 active Medicatio n ID: [id number] Du ration Value: 30 Brand Name: gabapenti n Send Method: E-Prescri bed Subs Allowed: subs OK Specia l Instructi on: TK 1 T PO TID Medic ationGene ricName: gabapenti n Not Available Not Available Not Available propranolo l 80 mg tablet 2015 active Medicatio n ID: [id number] Br and Name: propranol ol Send Method: [...] nebulizati on 2015 active Medicatio n ID: [id number] Du ration Value: 25 Brand Name: Albuterol [...] mg tablet 2015 active Medicatio n ID: [id number] Du ration Value: 30 Brand Name: butalbita l-acetami nophen-ca ff Send Method: E-Prescri bed Subs Allowed: subs OK Specia l Instructi on: TK 1 T PO QD PRF PAZ Medica tionGener icName: butalbita l-acetami nophen-ca ff Not Available Not Available Not Available Medrol 4 mg tablet 2015 active Medicatio n ID: [id number] Br and Name: Medrol Se nd Method: [...] nasal spray 2015 active Medicatio n ID: [id number] Du ration Value: 30 Brand Name: flunisoli de Send Method: E-Prescri bed Subs Allowed: subs OK Specia l Instructi on: INL ONCE IEN D Medicat ionGeneri cName: flunisoli de Not Available Not Available Not Available paroxetine 20 mg tablet 2015 active Medicatio n ID: [id number] Du ration Value: 30 Brand Name: paroxetin [...] mg tablet 2015 active Medicatio n ID: [id number] Br and Name: Tylenol-C odeine #3 Send [...] mg tablet 2015 active Medicatio n ID: [id number] Du ration Value: 30 Brand Name: oxybutyni [...] mg capsule 2015 active Medicatio n ID: [id number] Br and Name: phentermi ne Send Method: E-Prescri bed Subs Allowed: subs OK Medica tionGener icName: phentermi ne Not Available Not Available Not Available loratadine 10 mg tablet TAKE 1 TABLET BY MOUTH DAILY active Not Available Not Available No t Available risperidon e 0.5 mg tablet 2015 active Medicatio n ID: [id number] Du ration Value: 30 Brand Name: risperido ne Send Method: E-Prescri bed Subs Allowed: subs OK Specia l Instructi on: TK 1 T PO QHS Medic ationGene ricName: risperido ne Not Available Not Available Not Available oxycodone 5 mg tablet 2015 active Medicatio n ID: [id number] Du ration Value: 3 Brand Name: oxycodone [...] mg tablet 2015 active Medicatio n ID: [id number] Du ration Value: 30 Brand Name: Vesicare Send Method: E-Prescri bed Subs Allowed: subs OK Specia l Instructi on: TK 1 T PO D Medicat ionGeneri cName: Vesicare Not Available Not Available Not Available Colace 2015 active Medicatio n ID: [id number] Br and Name: colace Se nd Method: E-Prescri bed Subs Allowed: subs OK Medica tionGener icName: colace Not Available Not Available Not Available naphazolin e 2015 active Medicatio n ID: [id number] Br and Name: naphazoli ne Send Method: E-Prescri bed Subs Allowed: subs OK Medica tionGener icName: naphazoli ne Not Available Not Available Not Available promethazi ne 2015 active Medicatio n ID: [id number] Br and Name: promethaz ine Send Method: E-Prescri bed Subs Allowed: subs OK Medica tionGener icName: promethaz ine Not Available Not Available Not Available Qvar 2015 active Medicatio n ID: [id number] Br and Name: qvar Send Method: E-Prescri bed Subs Allowed: subs OK Medica tionGener icName: qvar Not Available Not Available Not Available Xopenex HFA 45 mcg/actuat ion aerosol inhaler 2015 active Medicatio n ID: [id number] Du ration Value: 15 Brand Name: Xopenex [...] delayed release 2015 active Medicatio n ID: [id number] Du ration Value: 30 Brand Name: Dexilant Send Method: E-Prescri bed Subs Allowed: subs OK Specia l Instructi on: TK 1 C PO QPM AT SUPPER OR HS Medica tionGener icName: Dexilant Not Available Not Available Not Available lidocaine 5 % topical ointment 2015 active Medicatio n ID: [id number] Du ration Value: 15 Brand Name: lidocaine [...] Address Organization Details Last Updated DateTime 03/28/2024 168815.09 g 39.2 kg/m2 170.18 cm Clarice Roberts MA - [facility] 03/28/2024 10:24:20 Social History None recorded. Functional Status None recorded. Mental Status None recorded. Family History Nothing Reported. Medical History No medical history recorded. Gynecological HistoryNo gynecological history recorded. Obstetrics History GPAL:G 0 P 0 0 0 0 Past Encounters Encounter ID Performer Location Encounter Start Date Encounter Closed Date Diagnosis/Indication Diagnosis SNOMED-CT Code Diagnosis ICD10 Code Diagnosis IMO Codes Diagnosis Note [id number] RUDY DICKSON PA-C [facility] [address] [phone] 03/28/2024 09:30:25 03/28/2024 10:31:51 Sensorineural hearing loss of bilateral ears [id number] H90.3 Audiologic al evaluation results: Right ear: [...] Soto Member ID Guarantor Name 03/28/2024 1 [facility] - DOS ON OR AFTER 2022 - ONE CARE (MEDICARE REPLACEMENT/ADV ANTAGE - HMO) Simi Garza [id number] Simi Garza Notes Date Note Type Note [...] and no ear surgeries. JANINE HART MD [address] [place] [address], [place], [phone], [facility] - [facility] 03/28/2024 12:42:32 OBGyn Episode No OBEpisode recorded.
--- NOTE | 2025-02-26 02:11 | ED.GENADULT ---
HPI - General Adult General Chief complaint: Dyspnea Stated complaint: CP + Sob + Flu like? Time Seen by Provider: 02/26/25 01:57 Source: patient Mode of arrival: ambulatory Limitations: no limitations History of Present Illness ED Provider: Dr. Cee Seals HPI narrative: Patient comes to the emergency room complaining of throat pain, subjective fever, cough for couple of weeks. Patient states that she has been coughing so much that now her throat hurts and is unable to drink water. Denies any diarrhea. Patient has been complaining some post-tussive emesis Related Data Home Medications ?Medication ?Instructions ?Recorded ?Confirmed lorazepam 1 mg tablet 1 mg PO TID PRN Anxiety 02/13/20 02/21/25 zolpidem 10 mg tablet 10 mg PO BEDTIME PRN Insomnia 02/13/20 02/21/25 fluticasone propionate 115 2 puff PO BID 05/06/21 02/21/25 mcg-salmeterol 21 mcg/actuation HFA inhaler (Advair HFA) loratadine 10 mg tablet 10 mg PO DAILY PRN Allergy Symptoms 08/09/22 02/21/25 paroxetine HCl 10 mg tablet 10 mg PO QAM 08/09/22 02/21/25 triamcinolone acetonide 0.1 % topical 06/20/23 02/21/25 topical ointment paroxetine HCl 40 mg tablet 20 mg PO DAILY 06/30/23 02/21/25 clobetasol 0.05 % topical ointment 1 appl topical BID 07/03/24 02/21/25 ixekizumab 80 mg/mL subcutaneous mg subcut 07/03/24 02/21/25 auto-injector (Marianna Autoinjector (3 Pack)) epinephrine 0.3 mg/0.3 mL IM ONCE 10/09/24 02/21/25 injection, auto-injector gabapentin 300 mg capsule 300 mg PO BID 10/09/24 02/21/25 levocetirizine 5 mg tablet 5 mg PO DAILY 10/09/24 02/21/25 cyclobenzaprine 10 mg tablet 10 mg PO TID 11/15/24 02/21/25 meclizine 25 mg tablet 25 mg PO BID PRN 11/15/24 02/21/25 meclizine 25 mg tablet 25 mg PO DAILY PRN 11/15/24 02/21/25 topiramate 100 mg capsule,extended 100 mg PO DAILY 11/15/24 02/21/25 release 24 hr ketoconazole 2 % shampoo topical 12/24/24 02/21/25 furosemide 20 mg tablet 20 mg PO DAILY 02/18/25 02/21/25 omeprazole 20 mg capsule,delayed 20 mg PO DAILY 02/18/25 02/21/25 release Previous Rx's ?Medication ?Instructions ?Recorded nebulizers (AeroneHarQen Go Nebulizer) #1 ea 02/05/21 ipratropium bromide 42 mcg (0.06 2 spray intranasal TID-QID PRN 07/09/22 %) nasal spray allergy symptoms 30 days #15 mL blood sugar diagnostic (OneTouch #100 ea 12/23/22 Ultra Test strips) blood-glucose meter (OneTouch #1 ea 12/23/22 Ultra2 Meter) lancets 30 gauge (OneTouch #100 ea 12/23/22 UltraSoft 2 Lancet) omalizumab 150 mg subcutaneous 300 mg subcut Q4W 28 days #1 ea 06/16/23 solution (Xolair) ondansetron 4 mg disintegrating 4 mg PO Q8H PRN for 06/20/24 tablet nausea/vomiting #10 tabs polyethylene glycol 3350 17 17 g PO DAILY #510 grams 09/05/24 gram/dose oral powder rosuvastatin 40 mg tablet 40 mg PO DAILY 90 days #90 tabs 09/10/24 lisinopril 5 mg tablet 5 mg PO DAILY #30 tabs 10/09/24 acetaminophen 500 mg capsule 1,000 mg (2 x 500 mg) PO Q8H PRN 11/02/24 fever or pain #14 caps ibuprofen 400 mg tablet 400 mg PO Q6H PRN pain #14 tabs 11/02/24 bacitracin 500 unit/gram topical 1 appl topical TID #14 grams 12/14/24 ointment esomeprazole magnesium 20 mg 20 mg PO DAILY #90 caps 12/24/24 capsule,delayed release linaclotide 72 mcg capsule 72 mcg PO DAILY #90 caps 12/24/24 diclofenac sodium 1 % topical gel 2 g topical QID 30 days #100 grams 12/25/24 (Arthritis Pain (diclofenac)) empagliflozin 25 mg tablet 25 mg PO DAILY 90 days #90 tabs 02/04/25 (Jardiance) aspirin 81 mg tablet,delayed 81 mg PO DAILY 90 days #90 tabs 02/08/25 release (Adult Aspirin Regimen) sulfamethoxazole 800 1 tab PO BID 10 days #20 tabs 02/11/25 mg-trimethoprim 160 mg tablet (Bactrim DS) tirzepatide 12.5 mg/0.5 mL 12.5 mg (0.5 mL) subcut QWEEK 4 02/11/25 subcutaneous pen injector weeks #2 mL (Mounjaro) metoprolol succinate 50 mg 75 mg (1.5 x 50 mg) PO DAILY #135 02/18/25 tablet,extended release 24 hr tabs ibuprofen 600 mg tablet 600 mg PO Q8H PRN fever or pain 02/26/25 #30 tabs ondansetron HCl 4 mg tablet 4 mg PO Q6H PRN nausea and 02/26/25 vomiting #14 tabs Allergies Allergy/AdvReac Type Severity Reaction Status Date / Time bee pollen (BEE STINGS) Allergy Intermediate RASH Verified 02/26/25 00:46 SWELLING PAIN FULL. phentermine Allergy Intermediate ANXIETY Verified 02/26/25 00:46 tramadol Allergy Intermediate stomach Verified 02/26/25 00:46 upset adhesive tape (ADHESIVE TAPE) Allergy Mild RASH Verified 02/26/25 00:46 oxycodone (OXYCODONE) AdvReac Intermediate VOMITING Verified 02/26/25 00:46 acetaminophen (From Percocet) AdvReac Vomiting Verified 02/26/25 00:46 apremilast (From Otezla) AdvReac diarrhea, Verified 02/26/25 00:46 nausea Review of Systems Review of Systems: Constitutional : No Weight loss, complaining of subjective fever, chills, fatigue and generalized malaise ENT/Mouth : No Hearing loss, No Ear Pain, No Nasal Congestion, No Sinus Pain, No Hoarseness, No sore throat, No Rhinorrhea, No Swallowing Difficulty Eyes: No Eye Pain, No Swelling, No Redness, No Foreign Body, No Discharge, No Vision Changes Cardiovascular : No Chest Pain, denies palpitations orthopnea Respiratory : Complaining of cough, intermittent shortness of breath Gastrointestinal : No Nausea, No Vomiting, No Diarrhea, No Constipation, No abdominal Pain, No Hematochezia, No Melena Genitourinary : no irregular bleeding, No Dysuria, No Urinary Frequency, No Hematuria, No Urinary Incontinence, No Urgency, No Flank Pain, No Urinary Flow Changes, No Hesitancy Musculoskeletal : No joint pain, complaining of diffuse Myalgias, No Joint Swelling Skin : No Skin Lesions, No rash Neuro : No Weakness, No Numbness, No Paresthesias, No Loss of Consciousness, No Dizziness, No Headache Psych : No Anxiety/Panic, No Depression, No SI/HI/AH/VH, No Social Issues, Heme/Lymph: No Bruising, No Bleeding,No Lymphadenopathy Endocrine : No Polyuria, No Polydipsia, No Temperature Intolerance [facility] Past Medical History Medical History Sebaceous cyst Varicose veins of both lower extremities BRCA negative Hx of acute myeloid leukemia in remission Benign paroxysmal positional vertigo Hospital discharge follow-up Abscess Essential hypertension Diabetes mellitus Migraines Hand numbness Mild persistent asthma Impaired glucose tolerance Mild recurrent major depression Herpes simplex type 2 infection Mixed hyperlipidemia Supraventricular tachycardia Left leg pain GERD (gastroesophageal reflux disease) Insomnia Left knee pain Nausea Depression with anxiety Surgical History History of cardiac catheterization History of esophagogastroduodenoscopy (EGD) Hx of colonoscopy History of removal of cyst History of surgery History of total abdominal hysterectomy History of cardiac radiofrequency ablation Family History Family History Father Brain cancer Mother Esophageal cancer Sister Breast cancer Paternal Uncle Diabetes Hypertension Sister Colon cancer, Onset Age: 63 Social History Social History Household Members: Children Housing: House Do you presently have visiting nurse or other home services: Yes Alcohol intake: never Patient Tobacco Use Status: Never used Tobacco Tobacco use type: Cigarette e-Cigarette/Vaping Use: Never Used Second Hand Smoke Exposure: No Advance Directives: Yes Advance Directives on File: Yes Advance Directives Date on File: 03/11/23 service: No Current occupational status: unemployed Sexual orientation: Straight/Heterosexual Gender identity: Female Cognitive needs: No Hearing needs: No Vision needs: No Physical Exam ED Exam Exam: Appearance: Alert. Oriented X3. Looks uncomfortable Eyes: Pupils equal, round and reactive to light. ENT: Pharynx normal. My oral mucosa tongue/lips Neck: Normal inspection. Neck supple. No lymph nodes noted. No crepitus CVS: Normal heart rate and rhythm. Pulses normal. Normal S1 and S2 Respiratory: No respiratory distress. Breath sounds normal. No Wheezing. No rales Abdomen: Soft and nontender. No rigidity. No distention. Skin: Skin warm and dry. Normal skin color. Normal skin turgor. Extremities: No lower extremity edema. No Lacerations. No Rash Neuro: Oriented X 3. No motor deficit. No sensory deficit. Moving all extremities. No slurred speech. CN 2 through 12 grossly intact Psych: calm, cooperative, normal affect Vital Signs: Vital Signs - 24 hr 02/26/25 00:45 Temperature 98.9 F Pulse Rate 130 H Respiratory Rate 20 Blood Pressure 106/63 Pulse Oximetry 94 Oxygen Delivery Method Room Air BMI result Body Mass Index 31.6 Course Course Course Narrative: Patient's seems a bit dehydrated, dry lips, dry oral mucosa. Patient states that she has not been able to drink any fluids due to toed pain and nausea and vomiting Patient receiving IV fluids, ketorolac, Zofran, Decadron and viscous by obtain My interpretation of labs pending the patient tested positive for influenza A Medications Administered Discontinued Medications Generic Name Dose Route Start Last Admin Trade Name Edinsonq PRN Reason Stop Dose Admin Dexamethasone Sodium Phosphate 6 mg 02/26/25 02:09 02/26/25 02:52 Dexamethasone Sod Phosphate 4 Mg/Ml Vial IVPUSH 02/26/25 02:10 6 mg ONCE ONE Administration Sodium Chloride 1,000 mls @ 999 mls/hr 02/26/25 02:09 02/26/25 02:51 Ns IVCONT 02/26/25 03:09 999 mls/hr .Q1H1M ONE Administration Ketorolac Tromethamine 30 mg 02/26/25 02:09 02/26/25 02:51 Ketorolac Tromethamine 30 Mg/Ml Vial IVPUSH 02/26/25 02:10 30 mg ONCE ONE Administration Lidocaine HCl 15 ml 02/26/25 02:09 02/26/25 02:51 Lidocaine Hcl Viscous 2 % 15 Ml Solution MUCOUS MEM 02/26/25 02:10 15 ml ONCE ONE Administration Ondansetron HCl 4 mg 02/26/25 02:09 02/26/25 02:51 Ondansetron Hcl 4 Mg/2 Ml Vial IVPUSH 02/26/25 02:10 4 mg ONCE ONE Administration Medical Decision Making Medical Decision Making MDM Narrative: Patient tested positive for influenza A. After the above-mentioned treatment, patient feeling better I discussed with the patient that she will likely feel ill for a few more days, gradually getting better. Patient has been symptomatic for over 2 weeks, unclear when she had onset of symptoms. At this time, Tamiflu would not be of any benefit to the patient Differential Diagnosis Differential Diagnoses: The differential diagnosis associated with the presentation includes (Influenza a, influenza B, RSV, COVID, strep pharyngitis) Lab Data MDM Lab Attestation statement: I reviewed the patient's lab results. Labs: Lab Results 02/26/25 Range/Units 01:11 Influenza Type A (PCR) POSITIVE A (Negative) Influenza Type B (PCR) NEGATIVE (Negative) RSV RNA Qual (PCR) NEGATIVE (Negative) SARS-CoV-2 RNA (RT-PCR) NEGATIVE (Negative) S. pyogenes GrpA OLIVIA Negative (Negative) Critical Care Time Critical Care Time Critical Care Time: Yes Total Critical Care Time: 35 Attestation: I have personally provided critical care time. Time includes review of lab data, radiology results, discussion with consultants, and monitoring for potential decompensation. Intervention performed as documented. Discharge Plan Discharge Clinical Impression: Influenza A, Dehydration Patient Disposition: Home, Self-Care Instructions: Dehydration (ED), Influenza (ED) Additional Instructions: Please follow-up with your primary care physician tomorrow. If you have any worsening or new symptoms, please return to the emergency room or call 911 Prescriptions: New ondansetron HCl 4 mg tablet 4 mg PO Q6H PRN (Reason: nausea and vomiting) Qty: 14 0RF ibuprofen 600 mg tablet 600 mg PO Q8H PRN (Reason: fever or pain) Qty: 30 0RF No Action (DME) Aeroneb Go Nebulizer Misc See Rx Instructions .Route Qty: 1 0RF Rx Instructions: As directed (DME) blood-glucose meter [OneTouch Ultra2 Meter] Misc See Rx Instructions .Route Qty: 1 0RF Rx Instructions: As directed (DME) OneTouch Ultra Test Strip See Rx Instructions .Route Qty: 100 3RF Rx Instructions: Use 1 test strip once a day (DME) lancets [OneTouch UltraSoft 2 Lancet] 30 gauge misc See Rx Instructions .Route Qty: 100 3RF Rx Instructions: Use 1 lancet once a day Xolair 150 mg recon soln 300 mg subcut Q4W 28 Days Qty: 1 12RF Rx Instructions: requires multiple injection sites; do not exceed 150 mg per injection site ondansetron 4 mg tablet,disintegrating 4 mg PO Q8H PRN (Reason: for nausea/vomiting) Qty: 10 0RF polyethylene glycol 3350 17 gram/dose powder 17 g PO DAILY Qty: 510 0RF rosuvastatin 40 mg tablet 40 mg PO DAILY 90 Days Qty: 90 1RF diclofenac sodium [Arthritis Pain (diclofenac)] 1 % gel 2 g topical QID 30 Days Qty: 100 1RF Rx Instructions: apply to single elbow, wrist or hand; for hand includes palm/fingers/back of hand Jardiance 25 mg tablet 25 mg PO DAILY 90 Days Qty: 90 1RF aspirin [Adult Aspirin Regimen] 81 mg tablet,delayed release (DR/EC) 81 mg PO DAILY 90 Days Qty: 90 0RF paroxetine HCl 40 mg tablet 20 mg PO DAILY ibuprofen 400 mg tablet 400 mg PO Q6H PRN (Reason: pain) Qty: 14 0RF acetaminophen 500 mg capsule 1,000 mg PO Q8H PRN (Reason: fever or pain) Qty: 14 0RF lorazepam 1 mg tablet 1 mg PO TID PRN (Reason: Anxiety) zolpidem 10 mg tablet 10 mg PO BEDTIME PRN (Reason: Insomnia) Advair HFA 115-21 mcg/actuation HFA aerosol inhaler 2 puff PO BID triamcinolone acetonide 0.1 % ointment topical paroxetine HCl 10 mg tablet 10 mg PO QAM loratadine 10 mg tablet 10 mg PO DAILY PRN (Reason: Allergy Symptoms) ipratropium bromide 42 mcg (0.06 %) spray,non-aerosol 2 spray intranasal TID-QID PRN (Reason: allergy symptoms) 30 Days Qty: 15 6RF Rx Instructions: administer into each nostril omeprazole 20 mg capsule,delayed release(DR/EC) 20 mg PO DAILY furosemide 20 mg tablet 20 mg PO DAILY metoprolol succinate 50 mg tablet extended release 24 hr 75 mg PO DAILY Qty: 135 3RF Rx Instructions: dose increased - ( bring to her attention that she is to take 1.5 tabs daily) clobetasol 0.05 % ointment 1 appl topical BID Taltz Autoinjector (3 Pack) 80 mg/mL auto-injector subcut ketoconazole 2 % shampoo topical esomeprazole magnesium 20 mg capsule,delayed release(DR/EC) 20 mg PO DAILY Qty: 90 2RF linaclotide 72 mcg capsule 72 mcg PO DAILY Qty: 90 3RF gabapentin 300 mg capsule 300 mg PO BID epinephrine 0.3 mg/0.3 mL auto-injector IM ONCE levocetirizine 5 mg tablet 5 mg PO DAILY lisinopril 5 mg tablet 5 mg PO DAILY Qty: 30 5RF Rx Instructions: New Mounjaro 12.5 mg/0.5 mL pen injector 12.5 mg subcut QWEEK 28 Days Qty: 2 0RF sulfamethoxazole-trimethoprim [Bactrim DS] 800-160 mg tablet 1 tab PO BID 10 Days Qty: 20 0RF cyclobenzaprine 10 mg tablet 10 mg PO TID meclizine 25 mg tablet 25 mg PO BID PRN meclizine 25 mg tablet 25 mg PO DAILY PRN topiramate 100 mg capsule,extended release 24hr 100 mg PO DAILY bacitracin 500 unit/gram ointment 1 appl topical TID Qty: 14 0RF Print Language: Croatian
[2025-02-26] MEDS: Lidocaine HCl Viscous 2 % 15 ML SOLUTION MUCOUS MEM (02:51)
--- NOTE | 2025-02-26 02:55 | PC.NURSE ---
Pt + flu A. IV access obtained, medicated per MAR. IVF hung and infusing without difficulty. Awaiting improvement in symptoms.
[2025-02-26 03:22] VITALS: PULSE 107; RESP 16; O2SAT 93
[2025-02-26 03:46] VITALS: BP 106/63; PULSE 107; RESP 16; TEMP 37.2; O2SAT 93
== END 2025-02-26 04:02 | disposition home or self-care (01) ==
PROVIDERS: Emergency Provider Emergency Medicine; PCP Internal Medicine
DX: J10.1 Influenza due to other identified influenza virus with other respiratory manifestations (principal); E86.0 Dehydration; R07.9 Chest pain, unspecified; R06.02 Shortness of breath; R50.9 Fever, unspecified; R05.9 Cough, unspecified; I10 Essential (primary) hypertension
CPT/HCPCS: 87637; 87651; 93005; 96361; 96374; 96375; 99284; 99285; J1100; J1885; J2405

== ENCOUNTER → 2025-02-26 00:34 | Outpatient (BNV) | payer OTHER, SELFPAY | PROVIDERS: Emergency Provider Emergency Medicine; PCP Internal Medicine; Visit Provider Internal Medicine Cardiovascular Disease | DX: R00.0 Tachycardia, unspecified (principal) | CPT/HCPCS: 93010 ==

== ENCOUNTER 2025-03-01 07:25 | Outpatient (REF) | payer OTHER, SELFPAY ==
--- NOTE | ~2025-03-01 | FL_ITS ---
EXAMINATION: XR BARIUM SWALLOW CLINICAL INFORMATION: Dysphagia. COMPARISON: None available. TECHNIQUE: Routine upright barium swallow was performed with thick barium, barium coated saltine crackers and barium tablet. FINDINGS: On oral administration of thin and thick barium there is difficulty in swallowing of bolus from the oral cavity into the pharynx likely secondary to inflammation/infection or decreased peristalsis. On bolus reaching the pharynx and esophagus there is normal antegrade flow seen without any obstruction, narrowing or stricture. No laryngeal penetration or aspiration seen. On oral administration of saltine crackers there is very slow oral mastication and propagation of bolus through the oral cavity into the pharynx likely cause of dysphagia. On bolus reaching the lower pharynx and upper esophagus is normal in screw for seen into the stomach. On oral administration of barium tablet there is prolonged holdup of tablet in the oral cavity. Subsequently on oral administration of large amount of fluid the tablet propulsed into the pharynx and esophagus. There is a transitional holdup of tablet in the distal esophagus/GE junction which cleared with solid food. FLUOROSCOPY TIME: 2 minute 42 seconds DOSE AREA PRODUCT: 1723 uGy-m2 (microgray-meter squared) FL/FL barium swallow IMPRESSION: Patient has initial difficulty in oral swallowing of thick, thin barium, solid foods and barium tablet. On bolus reaching the lower pharynx and esophagus there was no obstruction narrowing or stricture. The GE junction is patent as well. Recommend evaluation of oral cavity for inflammation, infection or underlying cause. Electronically signed by: Kehinde Lowry MD 03/01/2025 08:58 AM [facility]
--- OUTSIDE RECORDS SUMMARY | 2025-03-01 07:28 | XMS_ITS | Data Portability ---
Author Organization [place] - [facility], Allergy Address [address] [place] [id number] Care Team Providers [employer] Name Role Phone TAMIA HERMAN Referring Provider [phone] Assessment Encounter Date Assessment Date Assessment LastModified [...] Address Organization Details Recorded Time Chronic rhinitis [id number] Active 2015 Chronic rhinitis; Note: Date Diagnosed: 10/23/2015 4:13 PM (J31.0) Not Available [facility] 02:50:32 Allergic rhinitis caused by pollen 09577446 Active 2015 Allergic rhinitis due to pollen; Note: Date Diagnosed: 11/18/2015 10:39 AM (J30.1) Not Available [facility] 08/[facility] 4 02:50:33 Deviated nasal septum 594635021 Active 2016 Deviated nasal septum; Note: Date Diagnosed: 05/06/2016 9:16 AM (J34.2) Not Available [facility] 4 02:50:30 Allergic rhinitis 46584307 Active 2016 Other allergic rhinitis; Note: Date Diagnosed: 05/06/2016 9:16 AM (J30.89) Perennia l allergic rhinitis; Note: Date Diagnosed: 11/18/2015 10:39 AM (J30.89) ; Start Date : 11/18/2015 Not Available [facility] 4 02:50:28 Asthma 422955200 Active 2016 Other asthma; Note: Date Diagnosed: 05/06/2016 9:16 AM (J45.998) Not Available [facility] 4 02:50:30 Obstructi ve sleep apnea syndrome 34819260 Active 2016 Obstructiv e sleep apnea (adult) (pediatric ); Note: Date Diagnosed: 05/06/2016 9:16 AM (G47.33) Not Available [facility] 4 02:50:31 Sensorine ural hearing loss of bilateral ears 044119274 Active 2024 NARESH LINO [address], [address] , [facility] 5 10:08:59 Problem Notes None recorded. Procedures Surgical History Date Name Laterality Status Provider Name and Address Organization Details Recorded Time 03/28/2024 Comp Audio with Tymps - 91950 & 73039 completed NARESH LINO, [address], [address], [facility] 03/28/2024 10:08:52 Imaging Results None recorded. Procedure Notes None recorded. Medical Equipment None Reported. Medications Name Sig Start Date Stop Date Status Note LastModified by Organization Details LastModified Time cyclobenza salo 10 mg tablet 2015 active Medicatio n ID: [id number] Du ration Value: 30 Brand Name: cyclobenz aprine Se nd Method: E-Prescri bed Subs Allowed: subs OK Medica tionGener icName: cyclobenz aprine Not Available Not Available Not Available Qvar 80 mcg/actuat ion Metered Aerosol oral inhaler 2015 active Medicatio n ID: [id number] Du ration Value: 30 Brand Name: Qvar Send Method: E-Prescri bed Subs Allowed: subs OK Specia l Instructi on: TK 1 PUFF PO BID WITH SPACER FOR 30 DAYS Medi cationGen ericName: Qvar Not Available Not Available Not Available gabapentin 600 mg tablet 2015 active Medicatio n ID: [id number] Du ration Value: 30 Brand Name: gabapenti n Send Method: E-Prescri bed Subs Allowed: subs OK Specia l Instructi on: TK 1 T PO TID Medic ationGene ricName: gabapenti n Not Available Not Available Not Available propranolo l 80 mg tablet 2015 active Medicatio n ID: [id number] Br and Name: propranol ol Send Method: [...] nebulizati on 2015 active Medicatio n ID: [id number] Du ration Value: 25 Brand Name: Albuterol [...] mg tablet 2015 active Medicatio n ID: [id number] Du ration Value: 30 Brand Name: butalbita l-acetami nophen-ca ff Send Method: E-Prescri bed Subs Allowed: subs OK Specia l Instructi on: TK 1 T PO QD PRF PAZ Medica tionGener icName: butalbita l-acetami nophen-ca ff Not Available Not Available Not Available Medrol 4 mg tablet 2015 active Medicatio n ID: [id number] Br and Name: Medrol Se nd Method: [...] nasal spray 2015 active Medicatio n ID: [id number] Du ration Value: 30 Brand Name: flunisoli de Send Method: E-Prescri bed Subs Allowed: subs OK Specia l Instructi on: INL ONCE IEN D Medicat ionGeneri cName: flunisoli de Not Available Not Available Not Available paroxetine 20 mg tablet 2015 active Medicatio n ID: [id number] Du ration Value: 30 Brand Name: paroxetin [...] mg tablet 2015 active Medicatio n ID: [id number] Br and Name: Tylenol-C odeine #3 Send [...] mg tablet 2015 active Medicatio n ID: [id number] Du ration Value: 30 Brand Name: oxybutyni [...] mg capsule 2015 active Medicatio n ID: [id number] Br and Name: phentermi ne Send Method: E-Prescri bed Subs Allowed: subs OK Medica tionGener icName: phentermi ne Not Available Not Available Not Available loratadine 10 mg tablet TAKE 1 TABLET BY MOUTH DAILY active Not Available Not Available No t Available risperidon e 0.5 mg tablet 2015 active Medicatio n ID: [id number] Du ration Value: 30 Brand Name: risperido ne Send Method: E-Prescri bed Subs Allowed: subs OK Specia l Instructi on: TK 1 T PO QHS Medic ationGene ricName: risperido ne Not Available Not Available Not Available oxycodone 5 mg tablet 2015 active Medicatio n ID: [id number] Du ration Value: 3 Brand Name: oxycodone [...] mg tablet 2015 active Medicatio n ID: [id number] Du ration Value: 30 Brand Name: Vesicare Send Method: E-Prescri bed Subs Allowed: subs OK Specia l Instructi on: TK 1 T PO D Medicat ionGeneri cName: Vesicare Not Available Not Available Not Available Colace 2015 active Medicatio n ID: [id number] Br and Name: colace Se nd Method: E-Prescri bed Subs Allowed: subs OK Medica tionGener icName: colace Not Available Not Available Not Available naphazolin e 2015 active Medicatio n ID: [id number] Br and Name: naphazoli ne Send Method: E-Prescri bed Subs Allowed: subs OK Medica tionGener icName: naphazoli ne Not Available Not Available Not Available promethazi ne 2015 active Medicatio n ID: [id number] Br and Name: promethaz ine Send Method: E-Prescri bed Subs Allowed: subs OK Medica tionGener icName: promethaz ine Not Available Not Available Not Available Qvar 2015 active Medicatio n ID: [id number] Br and Name: qvar Send Method: E-Prescri bed Subs Allowed: subs OK Medica tionGener icName: qvar Not Available Not Available Not Available Xopenex HFA 45 mcg/actuat ion aerosol inhaler 2015 active Medicatio n ID: [id number] Du ration Value: 15 Brand Name: Xopenex [...] delayed release 2015 active Medicatio n ID: [id number] Du ration Value: 30 Brand Name: Dexilant Send Method: E-Prescri bed Subs Allowed: subs OK Specia l Instructi on: TK 1 C PO QPM AT SUPPER OR HS Medica tionGener icName: Dexilant Not Available Not Available Not Available lidocaine 5 % topical ointment 2015 active Medicatio n ID: [id number] Du ration Value: 15 Brand Name: lidocaine [...] Address Organization Details Last Updated DateTime 03/28/2024 722608.09 g 39.2 kg/m2 170.18 cm Clarice [place] - [facility] 03/28/2024 10:24:20 Social History None recorded. Functional Status None recorded. Mental Status None recorded. Family History Nothing Reported. Medical History No medical history recorded. Gynecological HistoryNo gynecological history recorded. Obstetrics History GPAL:G 0 P 0 0 0 0 Past Encounters Encounter ID Performer Location Encounter Start Date Encounter Closed Date Diagnosis/Indication Diagnosis SNOMED-CT Code Diagnosis ICD10 Code Diagnosis IMO Codes Diagnosis Note [id number] RUDY DICKSON PA-C [facility] [address] [address] 03/28/2024 09:30:25 03/28/2024 10:31:51 Sensorineural hearing loss of bilateral ears [id number] H90.3 Audiologic al evaluation results: Right ear: [...] Date Sequence Insurance Name Policy Number Policy Osto Covered Member ID Soto Member ID Guarantor Name 03/28/2024 1 [facility] - DOS ON OR AFTER 2022 - ONE CARE (MEDICARE REPLACEMENT/ADV ANTAGE - HMO) Simi Garza [id number] Simi Garza Notes Date Note Type Note [...] no ear surgeries. JANINE HART MD [address] [place] [address], [place], [address], [facility] - [facility] 03/28/2024 12:42:32 OBGyn Episode No OBEpisode recorded.
== END 2025-03-01 07:26 | disposition home or self-care (01) ==
LOC: HO.XRAY 07:25
PROVIDERS: PCP Internal Medicine; Visit Provider Internal Medicine Gastroenterology
DX: R13.10 Dysphagia, unspecified (principal)
CPT/HCPCS: 74220

== ENCOUNTER → 2025-03-01 07:27 | Outpatient (BNV) | payer OTHER, SELFPAY | PROVIDERS: PCP Internal Medicine; Visit Provider Radiology Diagnostic Radiology | DX: R13.10 Dysphagia, unspecified (principal) | CPT/HCPCS: 74221 ==